=== PATIENT | male | born 1975 | race Two or more races ===

== ENCOUNTER 2019-12-15 17:10 | Outpatient (REF) | payer MEDICAID, SELFPAY | END 2019-12-15 17:11 | disposition home or self-care (01) | LOC: HO.LAB 17:10 | PROVIDERS: PCP Internal Medicine; Visit Provider Internal Medicine | DX: Z20.828 Contact with and (suspected) exposure to other viral communicable diseases (principal) | CPT/HCPCS: C9803; U0003 ==

== ENCOUNTER 2020-04-19 08:54 | Outpatient (REF) | payer MEDICAID, SELFPAY ==
--- NOTE | ~2020-04-19 | XR_ITS ---
EXAMINATION: XR SHOULDER, RIGHT CLINICAL INFORMATION: Pain COMPARISON: None TECHNIQUE: AP external rotation, Grashey, scapular Y, and axillary views of the right shoulder. FINDINGS: Bone alignment is normal. No fracture or dislocation is seen. The glenohumeral joint is normal. There is arthritis at the acromioclavicular joint. Soft tissues are unremarkable. XR/XR shoulder RT min 2V IMPRESSION: Arthritis at the acromioclavicular joint.
== END 2020-04-19 08:55 | disposition home or self-care (01) ==
LOC: HO.XRAY 08:54
PROVIDERS: PCP Internal Medicine; Visit Provider Internal Medicine
DX: M25.511 Pain in right shoulder (principal)
CPT/HCPCS: 73030

== ENCOUNTER 2022-03-14 10:17 | Day surgery (SDC) | payer MEDICAID, SELFPAY ==
--- NOTE | 2022-02-27 12:40 | HO.ANESPROP2 ---
Documented by User: Rivka Tellez NP 02/27/22 12:40 HPI - Anesthesia Eval Consult details Narrative: 46yo M for Colonoscopy [facility] Past Medical History Medical History (Updated 02/27/22 @ 12:05 by Sylvia Dai RN) Anxiety and depression Back pain Elevated WBCs HTN (hypertension) KIM (obstructive sleep apnea) Type 2 diabetes mellitus Surgical History Surgical History (Updated 03/14/22 @ 10:49 by Sadaf Schaffer RN) Hx of oral surgery Social History Social History Patient Tobacco Use Status: Current everyday Tobacco user Tobacco use type: Cigarette Cigarettes Per Day: 10 Use of substances other than those prescribed or required for medical reasons: Yes Are you DNR?: No Advance Directives: No Advance Directives Information Provided: Yes Meds Allergies Allergy/AdvReac Type Severity Reaction Status Date / Time No Known Allergies Allergy Verified 03/14/22 10:46 Home Medications Medication Instructions Recorded Confirmed Last Taken Type albuterol sulfate 90 mcg/actuation 2 puff inhalation Q4-6H PRN 02/27/22 02/27/22 Unknown History aerosol inhaler (ProAir HFA) Wheezing cholecalciferol (vitamin D3) 50 1 cap PO DAILY 02/27/22 02/27/22 Unknown History mcg (2,000 unit) capsule (Vitamin D3) clonazepam 1 mg tablet 1 tab PO BID 02/27/22 02/27/22 Unknown History cyanocobalamin (vitamin B-12) 1 tab PO DAILY 02/27/22 02/27/22 Unknown History 1,000 mcg tablet dulaglutide 4.5 mg/0.5 mL 0.5 ml subcut QWEEK 02/27/22 02/27/22 Unknown History subcutaneous pen injector (Trulicity) empagliflozin 25 mg tablet 1 tab PO QAM 02/27/22 02/27/22 Unknown History (Jardiance) gabapentin 300 mg capsule 1 cap PO BID 02/27/22 02/27/22 Unknown History lisinopril 20 mg tablet 1 tab PO DAILY 02/27/22 02/27/22 03/14/22 History lurasidone 20 mg tablet (Latuda) 1 tab PO QPM 02/27/22 02/27/22 Unknown History mirtazapine 45 mg tablet 1 tab BEDTIME 02/27/22 02/27/22 Unknown History perphenazine 4 mg tablet 4 mg PO BID 02/27/22 02/27/22 Unknown History ropinirole 1 mg tablet 1 tab PO BEDTIME 02/27/22 02/27/22 Unknown History sertraline 100 mg tablet 2 tab PO DAILY 02/27/22 02/27/22 Unknown History tramadol 50 mg tablet 1 - 2 tab PO Q8H PRN Pain 02/27/22 02/27/22 Unknown History zolpidem 10 mg tablet 1 tab PO BEDTIME PRN Insomnia 02/27/22 02/27/22 Unknown History Exam Exam Date and Time: February 27, 2022 124 Assessment and Plan Assessment Anesthesia Assessment: Chart Reviewed Documented by User: Kit Walker MD 03/14/22 15:18 [facility] Past Medical History Medical History (Updated 02/27/22 @ 12:05 by Sylvia Dai RN) Anxiety and depression Back pain Elevated WBCs HTN (hypertension) KIM (obstructive sleep apnea) Type 2 diabetes mellitus Functional capacity: independent ambulation Family History Family history of problems with anesthesia: No Surgical History Surgical History (Updated 03/14/22 @ 10:49 by Sadaf Schaffer RN) Hx of oral surgery History of Problems with Anesthesia: No Social History Social History Patient Tobacco Use Status: Current everyday Tobacco user Tobacco use type: Cigarette Cigarettes Per Day: 10 Use of substances other than those prescribed or required for medical reasons: Yes Are you DNR?: No Advance Directives: No Advance Directives Information Provided: Yes Meds Allergies Allergy/AdvReac Type Severity Reaction Status Date / Time No Known Allergies Allergy Verified 03/14/22 10:46 Home Medications Medication Instructions Recorded Confirmed Last Taken Type albuterol sulfate 90 mcg/actuation 2 puff inhalation Q4-6H PRN 02/27/22 02/27/22 Unknown History aerosol inhaler (ProAir HFA) Wheezing cholecalciferol (vitamin D3) 50 1 cap PO DAILY 02/27/22 02/27/22 Unknown History mcg (2,000 unit) capsule (Vitamin D3) clonazepam 1 mg tablet 1 tab PO BID 02/27/22 02/27/22 Unknown History cyanocobalamin (vitamin B-12) 1 tab PO DAILY 02/27/22 02/27/22 Unknown History 1,000 mcg tablet dulaglutide 4.5 mg/0.5 mL 0.5 ml subcut QWEEK 02/27/22 02/27/22 Unknown History subcutaneous pen injector (Trulicity) empagliflozin 25 mg tablet 1 tab PO QAM 02/27/22 02/27/22 Unknown History (Jardiance) gabapentin 300 mg capsule 1 cap PO BID 02/27/22 02/27/22 Unknown History lisinopril 20 mg tablet 1 tab PO DAILY 02/27/22 02/27/22 03/14/22 History lurasidone 20 mg tablet (Latuda) 1 tab PO QPM 02/27/22 02/27/22 Unknown History mirtazapine 45 mg tablet 1 tab BEDTIME 02/27/22 02/27/22 Unknown History perphenazine 4 mg tablet 4 mg PO BID 02/27/22 02/27/22 Unknown History ropinirole 1 mg tablet 1 tab PO BEDTIME 02/27/22 02/27/22 Unknown History sertraline 100 mg tablet 2 tab PO DAILY 02/27/22 02/27/22 Unknown History tramadol 50 mg tablet 1 - 2 tab PO Q8H PRN Pain 02/27/22 02/27/22 Unknown History zolpidem 10 mg tablet 1 tab PO BEDTIME PRN Insomnia 02/27/22 02/27/22 Unknown History Exam Airway Mallampati Class: IV TM Dist: >3cm Neck ROM: Full Loose/Missing/Broken Teeth: Yes Heart: S1,S2 Lungs: b/l breath sounds Assessment and Plan Assessment Anesthesia Assessment: Anesthesia Plan Discussed Final Anesthetic Review Family History of Problems with Anesthesia: No History of Problems with Anesthesia: No NPO: Yes ASA Class: III Final Preanesthetic Review: Meds/Allgs Chart Reviewed, Consent Obtained/Reviewed and Anes Risks/Benef Reviewed Patient Risk: Intermediate Procedure Risk: Intermediate Anesthetic Plan Anesthetic Plan: MAC: Disposition: Standard PACU
[2022-03-14 10:50] VITALS: BMI 55.0
[2022-03-14 10:56] VITALS: BP 109/69; PULSE 97; RESP 18; TEMP 36.7; O2SAT 96
[2022-03-14] MEDS: Lactated Ringers 1,000 ML 100 ML IVCONT (11:23)
[2022-03-14 11:24] LABS: Glucose, Whole Blood 152 mg/dL (60-115)
--- NOTE | 2022-03-14 11:57 | MHC.SHP ---
Pre-Procedural Eval Section A Date of Service: 03/14/22 Section B Chief Complaint: screening Details of Present Illness: see H&P no changes Relevant Family History (Specify if Yes): No Relevant Social History: None Present Medications: see Short Stay Collaborative assessment Medical History: No relevant PMH History of Previous Operations: No relevant previous surgery Allergies: Allergies Allergy/AdvReac Type Severity Reaction Status Date / Time No Known Allergies Allergy Verified 03/14/22 10:46 Review of Systems Sugical H&P ROS: Negative: Constitution, Cardiovascular, Respiratory, Neurological, Psychiatric, Hem-Onc, Allergic/Immunologic, Gastrointestinal, Genitourinary, Musculoskeletal, Integumentary, Endocrine and Eyes/Ears/Nose/Throat Exam Surgical H&P Exam: Normal: HEENT, Normal: Heart, Normal: Lungs, Normal: Extremities, Normal: Abdomen, Normal: Skin and Normal: Neurological Plan Diagnosis/Plan: Unchanged I have reviewed the history and physical and performed a pertinent physical examination on my patient. No changes have occurred unless specified. Time Spent With Patient Time: Total time managing care of this patient today ____ minutes.
--- NOTE | 2022-03-14 12:34 | PM.OP ---
Brief Operative Note Date of Service: 03/14/22 Pre-op diagnosis: screening Post-op diagnosis: same Procedure: colonoscopy Surgeon: Grady Gomes Anesthesia: MAC Was an Lactation Consultant used for this Procedure?: No Estimated blood loss (mL): 2 Pathology: other Condition: stable Disposition: PACU
[2022-03-14 12:38] VITALS: BP 107/55; PULSE 92; RESP 18; TEMP 37.7; O2SAT 98
[2022-03-14 13:00] VITALS: BP 109/55; PULSE 81; RESP 18; TEMP 37.1; O2SAT 97
--- NOTE | 2022-03-14 13:03 | OP_ITS ---
SURGEON: Grady Gomes MD INDICATIONS: Colon cancer screening. PREOPERATIVE DIAGNOSIS: POSTOPERATIVE DIAGNOSIS: PROCEDURE PERFORMED: Colonoscopy to the terminal ileum with biopsy. ESTIMATED BLOOD LOSS: COMPLICATIONS: ANESTHESIA: Monitored anesthesia care. ASSISTANTS: SPECIMENS: DESCRIPTION OF PROCEDURE: A history and physical was performed. The risks and benefits of the procedure were explained to the patient. Informed consent was obtained. The procedure was performed on 24/08/2022. The patient was placed in the left lateral decubitus position. A digital rectal exam was performed and was found to be normal. The Olympus pediatric video colonoscope was introduced into the rectum and advanced to the cecum without difficulty. The cecum was identified by transillumination, palpation, and identification of ileocecal valve. Examination was performed. The scope was removed. He tolerated the procedure well and was returned to the recovery area in stable condition. FINDINGS: The terminal ileum was examined and appeared normal. The visualized colonic mucosa was normal. In the cecum was a less than 5 mm sessile polyp, which was removed with a biopsy forceps. No other polyps were identified. There appeared to be some areas of mucosal prolapse in the sigmoid. There was mild diverticulosis. Retroflexed examination was normal. IMPRESSION: Colon polyp. RECOMMENDATION: Follow up the biopsy results. MD CHRISTINA Fitch/GARRISONL / [id number]
== END 2022-03-14 13:57 | disposition home or self-care (01) ==
PROVIDERS: PCP Registered Nurse; Visit Provider Internal Medicine Gastroenterology
PROC: 0DJD8ZZ Inspection of Lower Intestinal Tract, Via Natural or Artificial Opening Endoscopic (ICD-10-PCS; CPT 45378; principal; 2022-03-14 11:40)
DX: Z12.11 Encounter for screening for malignant neoplasm of colon (principal); D12.0 Benign neoplasm of cecum; K57.30 Diverticulosis of large intestine without perforation or abscess without bleeding; K59.00 Constipation, unspecified; D72.829 Elevated white blood cell count, unspecified; I10 Essential (primary) hypertension; G47.33 Obstructive sleep apnea (adult) (pediatric); E11.9 Type 2 diabetes mellitus without complications; F41.8 Other specified anxiety disorders; Z79.85 Long-term (current) use of injectable non-insulin antidiabetic drugs; F17.210 Nicotine dependence, cigarettes, uncomplicated; Z79.899 Other long term (current) drug therapy
CPT/HCPCS: 45380; 82947; 88305; J2250; J2370

== ENCOUNTER 2022-03-20 09:11 | Outpatient (REF) | payer MEDICAID, SELFPAY ==
--- NOTE | ~2022-03-20 | XR_ITS ---
EXAMINATION: KNEE X-RAY CLINICAL INFORMATION: Pain COMPARISON: Previous x-rays from 2018 TECHNIQUE: 3 views of each knee FINDINGS: Left: Bone alignment is normal. No fracture or dislocation. There are degenerative changes at the patellofemoral and medial femoral tibial joints with small osteophytes. There is no joint effusion. Right: There is valgus angulation of the knee joint. No acute fracture or dislocation. There is proliferative bone reaction adjacent to the medial femoral condyle likely related to old trauma. Arthritis at the lateral femoral tibial and patellofemoral joints. Small joint effusion. XR/XR knee RT 3V IMPRESSION: Bilateral arthritis, right greater than left.
--- NOTE | ~2022-03-20 | XR_ITS ---
EXAMINATION: KNEE X-RAY CLINICAL INFORMATION: Pain COMPARISON: Previous x-rays from 2018 TECHNIQUE: 3 views of each knee FINDINGS: Left: Bone alignment is normal. No fracture or dislocation. There are degenerative changes at the patellofemoral and medial femoral tibial joints with small osteophytes. There is no joint effusion. Right: There is valgus angulation of the knee joint. No acute fracture or dislocation. There is proliferative bone reaction adjacent to the medial femoral condyle likely related to old trauma. Arthritis at the lateral femoral tibial and patellofemoral joints. Small joint effusion. XR/XR knee LT 3V IMPRESSION: Bilateral arthritis, right greater than left.
== END 2022-03-20 09:12 | disposition home or self-care (01) ==
LOC: HO.XRAY 09:11
PROVIDERS: PCP Registered Nurse; Visit Provider Registered Nurse
DX: M25.561 Pain in right knee (principal); M25.562 Pain in left knee
CPT/HCPCS: 73562

== ENCOUNTER 2023-03-14 08:52 | Outpatient (REF) | payer MEDICAID, SELFPAY ==
[2023-03-14 12:44] LABS: Alanine Aminotransferase 19 U/L (0-40); Albumin Level 4.2 g/dL (3.5-5.0); Alkaline Phosphatase 106 U/L (39-117); Anion Gap 14 (12-20); Aspartate Amino Transferase 16 U/L (5-37); Bilirubin Total 0.4 mg/dL (0.0-1.0); Blood Urea Nitrogen 17 mg/dL (9-16); Calcium 9.5 mg/dL (8.4-10.2); Carbon Dioxide 25 mmol/L (22-29); Chloride 103 mmol/L (96-108); Cholesterol 133 mg/dL (<200); Estimated Glomerular Filt Rate > 60; Glucose Random 136 mg/dL (60-115); HDL Cholesterol 39 mg/dL (>40); LDL Cholesterol Calculated 58 mg/dL (<100); Potassium 4.5 mmol/L (3.3-5.1); Sodium 137 mmol/L (135-145); Total Protein 7.6 g/dL (6.5-8.0); Triglycerides 183 mg/dL (<150)
== END 2023-03-14 08:53 | disposition home or self-care (01) ==
LOC: HO.HHCL 08:52
PROVIDERS: Visit Provider Nurse Practitioner Family
DX: E11.9 Type 2 diabetes mellitus without complications (principal); I10 Essential (primary) hypertension; E66.01 Morbid (severe) obesity due to excess calories; Z68.43 Body mass index [BMI] 50.0-59.9, adult
CPT/HCPCS: 36415; 80053; 80061

== ENCOUNTER 2023-09-14 10:19 | Inpatient (IN) | payer MEDICAID, SELFPAY ==
[2023-09-14] VITALS (34 sets, daily range): BP systolic 83–136; BP diastolic 27–64; PULSE 91–121; RESP 16–33; TEMP 32–36.8; O2SAT 90–99; BMI 52.1; BMI 50.9
--- NOTE | 2023-09-14 | ECG_ITS ---
Test Reason : CP Blood Pressure : / mmHG Vent. Rate : 102 BPM Atrial Rate : 102 BPM P-R Int : 118 ms QRS Dur : 094 ms QT Int : 392 ms P-R-T Axes : 056 009 033 degrees QTc Int : 510 ms Sinus tachycardia Otherwise normal ECG When compared with ECG of 27-AUG-2018 09:18, QT has lengthened Referred By: Felicitas De León Electronically Signed By:RADHA BEAVER MD
--- NOTE | ~2023-09-14 | XR_ITS ---
EXAMINATION: XR CHEST CLINICAL INFORMATION: DKA high fluid overload COMPARISON: Chest x-ray performed same day 4:19 PM TECHNIQUE: Frontal view of the chest was obtained. FINDINGS: Endotracheal tube in place with the tip 3.6 cm above blanca. Central venous catheter remains in place in the region of the SVC. Low lung volumes. Lungs clear. Cardiomediastinal silhouette normal. Bone and soft tissues unremarkable. XR/XR chest 1V IMPRESSION: 1. Endotracheal tube 3.6 cm above blanca. 2. Low lung volumes.
--- NOTE | ~2023-09-14 | XR_ITS ---
EXAMINATION: XR CHEST CLINICAL INFORMATION: Gastric tube placement. COMPARISON: 09/14/2023. TECHNIQUE: Frontal view of the chest was obtained. FINDINGS: The lung volumes are relatively low. The cardiomediastinal silhouette is stable. There is an endotracheal tube in good position. A left approach central line is also in a stable position. A gastric tube extends below the diaphragm. The tip of the gastric tube is is not well seen but appears to be in overall adequate position. There is no focal lung consolidation or pleural effusion. There is no pneumothorax. The bony structures and soft tissues are unremarkable. XR/XR chest 1V IMPRESSION: Gastric tube extends below the diaphragm. The tip of the gastric tube is not well seen but appears to be in overall adequate position. No other significant change.
--- NOTE | ~2023-09-14 | XR_ITS ---
EXAMINATION: XR CHEST CLINICAL INFORMATION: Catheter placement. COMPARISON: Chest radiograph 01/25/2018. TECHNIQUE: Frontal view of the chest was obtained. FINDINGS: Left-sided CVC catheter with the tip overlying the expected location of the lower SVC. No evidence of pneumothorax. Unchanged cardiomediastinal silhouette. Similar degree of mild diffuse interstitial prominence. No focal consolidation or pleural effusion. No acute osseous findings. XR/XR chest 1V IMPRESSION: 1. Left-sided CVC catheter with the tip overlying the expected location of the lower SVC. 2. No pneumothorax. 3. No focal consolidation.
--- NOTE | ~2023-09-14 | XR_ITS ---
EXAMINATION: XR CHEST CLINICAL INFORMATION: Assess ET tube position. COMPARISON: 09/15/2023 TECHNIQUE: Frontal view of the chest was obtained. FINDINGS: ET tube tip is 3.4 cm above the blanca. Left subclavian central venous catheter tip is at the sidewall of the superior vena cava. No pneumothorax seen. NG tube is in the stomach. Heart and mediastinum within normal limits. No vascular congestion. Obscuration left hemidiaphragm with increased markings and left costophrenic angle blunting. Bony structures are intact. XR/XR chest 1V IMPRESSION: Lines as described. Interval density left base, question atelectasis/pneumonia and small effusion.
--- NOTE | ~2023-09-14 | CT_ITS ---
EXAMINATION: CT PELVIS WITH CONTRAST CLINICAL INFORMATION: Abscess to groin and gluteal region, large, draining. COMPARISON: None available. TECHNIQUE: Helical scanning was performed with submillimeter collimation through the pelvis with the use of oral contrast and during bolus intravenous injection of 85 mL of Omnipaque 350 intravenous contrast. Sagittal and coronal multiplanar 2-D reconstructions were obtained. This CT examination was performed using dose optimization techniques as appropriate, variously including the following: *Automated exposure control *Adjustment of mA and/or kV according to patient size (this includes techniques or standardized protocols for targeted exams where dose is matched to indication/reason for exam; i.e. extremities or head) *Use of iterative reconstruction technique DLP: 658 mGy-cm FINDINGS: Quite extensive foci of gas scattered in the soft tissues of the right gluteal region extending deeper to abut the muscular compartment with associated fat stranding. A few additional foci of gas are noted more medially in the inner thigh and right perineum. No discrete organized collection or abscess. Asymmetric right-sided inguinal and external iliac lymphadenopathy. Colonic diverticulosis without significant pericolonic inflammatory changes to suspect acute diverticulitis. Normal size of the prostate gland and symmetric seminal vesicles. Conti catheter noted within a decompressed urinary bladder, intraluminal air is indeterminate in the presence of the Conti. No perivesical inflammatory changes. No acute or aggressive appearing osseous findings. CT/CT pelvis w IV con IMPRESSION: Extensive gas in the soft tissues of the right gluteal region and to a lesser extent medial right inner thigh and right perineum with surrounding fat stranding, concerning for a gangrenous/emphysematous infection. No organized abscess or drainable collection.
--- NOTE | 2023-09-14 10:29 | ED.ABDPAIN ---
HPI - Abdominal Pain General Chief Complaint: General Medical Stated Complaint: BLEEDING GROIN AREA Time Seen by Provider: 09/14/23 10:22 Source: patient Mode of arrival: ambulatory Limitations: other (poor historian) History of Present Illness ED Provider: Brendon BROWER HPI narrative: 48 year old M with a pmh of T2DM, HTN, KIM, anxiety and depression presenting with complaints of 2 groin cysts that are infected/bleeding for the past week. Reports that the cysts are bleeding and draining black stuff. He states the areas are very painful, 01/14. He has never been seen for these previously due to embarrassment. He states he has not been able to keep any fluids/solids down for 5 days as he has continuously vomited. He reports fevers, but denies chest pain, sob. Related Data Home Medications ?Medication ?Instructions ?Recorded ?Confirmed albuterol sulfate 90 mcg/actuation 2 puff inhalation Q4-6H PRN 02/27/22 09/14/23 aerosol inhaler (ProAir HFA) Wheezing cholecalciferol (vitamin D3) 50 1 cap PO DAILY 02/27/22 09/14/23 mcg (2,000 unit) capsule (Vitamin D3) clonazepam 1 mg tablet 1 tab PO BID 02/27/22 09/14/23 cyanocobalamin (vitamin B-12) 1 tab PO DAILY 02/27/22 09/14/23 1,000 mcg tablet dulaglutide 4.5 mg/0.5 mL 0.5 ml subcut QWEEK 02/27/22 09/14/23 subcutaneous pen injector (Trulicity) empagliflozin 25 mg tablet 1 tab PO QAM 02/27/22 09/14/23 (Jardiance) gabapentin 300 mg capsule 1 cap PO BID 02/27/22 09/14/23 lisinopril 20 mg tablet 1 tab PO DAILY 02/27/22 09/14/23 lurasidone 20 mg tablet (Latuda) 1 tab PO QPM 02/27/22 02/27/22 mirtazapine 45 mg tablet 1 tab BEDTIME 02/27/22 09/14/23 perphenazine 4 mg tablet 4 mg PO BID 02/27/22 02/27/22 ropinirole 1 mg tablet 1 tab PO BEDTIME 02/27/22 09/14/23 sertraline 100 mg tablet 2 tab PO DAILY 02/27/22 09/14/23 tramadol 50 mg tablet 1 - 2 tab PO Q8H PRN Pain 02/27/22 09/14/23 zolpidem 10 mg tablet 1 tab PO BEDTIME PRN Insomnia 02/27/22 02/27/22 ziprasidone HCl 40 mg capsule 40 mg PO QPM 09/14/23 09/14/23 Allergies Allergy/AdvReac Type Severity Reaction Status Date / Time No Known Allergies Allergy Verified 09/14/23 11:03 Review of Systems Review of Systems Yes all other systems are reviewed and are negative FOR[facility]LY [facility] Past Medical History Attestation statement: The following information was validated with the patient. Source: old records reviewed and nursing notes reviewed Medical History (Updated 09/14/23 @ 13:04 by Michael Matthew MD) Soft tissue infection Morbid obesity Back pain KIM (obstructive sleep apnea) Anxiety and depression Elevated WBCs Type 2 diabetes mellitus HTN (hypertension) Surgical History (Updated 03/14/22 @ 10:49 by Sadaf Schaffer RN) Hx of oral surgery Social History Social History Alcohol intake: never Patient Tobacco Use Status: Current everyday Tobacco user Tobacco use type: Cigarette Cigarettes Per Day: 10 Smoked in Last 30 Days: Yes Use of substances other than those prescribed or required for medical reasons: Yes Substance Use Type: Marijuana Substance Use Frequency: Chronic Longstanding Advance Directives: No Advance Directives Information Provided: Yes Physical Exam ED Vital Signs: Vital Signs - 24 hr 09/14/23 11:01 09/14/23 11:22 09/14/23 11:35 Temperature 97.8 F 97.8 F Pulse Rate 105 H 102 H 98 Respiratory Rate 20 18 20 Blood Pressure 102/49 L 86/27 L 109/38 L Pulse Oximetry 97 96 98 Oxygen Delivery Method Room Air Room Air Room Air Oxygen Flow Rate 09/14/23 12:13 Temperature 97.3 F Pulse Rate 94 Respiratory Rate 20 Blood Pressure 102/37 L Pulse Oximetry 95 Oxygen Delivery Method Nasal Cannula Oxygen Flow Rate 2.0 BMI result Body Mass Index 52.1 vss Appearance: Alert.? Oriented X3.? No acute distress.? Head: Normocephalic, atraumatic, no step-offs or deformities Eyes: Pupils equal, round and reactive to light.? ENT: Pharynx normal.??External ears normal, TMs normal bilaterally and EAC's normal. No pain with manipulation of external ears bilaterally. No mastoid tenderness. Neck: Normal inspection.? Neck supple.? CVS: Normal heart rate and rhythm.? Pulses normal.? Respiratory: No respiratory distress.? Breath sounds normal.? Abdomen: Soft and nontender.? Skin: Skin warm and dry.? Normal skin color.? Normal skin turgor.? + large abscess to r inner thigh, w/ erythema, warmth, large purulence, also abscess to the posterior thigh around the same level ( images in chart ) Extremities: No lower extremity edema.? No calf ttp. 5/5 strength to bilateral upper and lower extremities Back: No midline tenderness, no C-spine tenderness, full range of motion, no CVA tenderness bilaterally Neuro: Oriented X 3.? No motor deficit.? No sensory deficit. CN 2-12 intact Course Reevaluation(s) Reevaluation #1: Difficult stick. Patient's labs are pending however he did have a point of care done which revealed an elevated blood glucose 590, 10 units of subq insulin ordered, patient will also receive IV fluids. He is noted to be hypotensive, tachycardic, this time infection suspected Zosyn has been ordered for prophylactic coverage of wound as well as fluids. Time: 11:14 Reevaluation #2: Patient with strikingly high leukocytosis 37.8 with a shift. Chemistry with low potassium 2.5 IV potassium ordered. Noted to have a low carbon dioxide 9, anion gap of 23 likely secondary to infection. ITA, fluids ordered. Point of care glucose 590, 10 units of insulin ordered. As well as a very elevated beta hydroxybutyrate patient is likely also in DKA. Patient's inflammatory markers extremely elevated. I did reach out to surgery to inform them of this case as I have suspicion for fourniers/necrotizing infection, he is currently in the OR recommend NPO. Time: 11:42 Reevaluation #3: Dr. Matthew down to see patient however patient in the CT scanner, he will return after for revaluation. Time: 12:16 Additional Reevaluation(s): 1223 - Patient returned from CT scan a few minutes ago, nursing received a call stating that patient would be going to the OR. I did go over what was going on with the patient. I answered most questions. He verbalized understanding of severity of this. I was going to place a central line however nursing states that the OR will be here any minute. He does have to IVs with good access bilaterally, all meds running adequately. 1310- change of plans, patient to go to the ICU before OR as patient needs to be further stabilized per request of anesthesia 1339- Patient will go to the ICU at this time Medical Decision Making Medical Decision Making [facility] Narrative: 1045 48 year old M presenting with c/o groin pain x 1 week d/t 2 cysts that are infected and bleeding Physical examination revealed Hx and pe concerning for HS w/ draining abscess vs cellulitis w/ poor wound healing likley due to DM uncontrolled w/ fistula. Based off with my examination Cuate gangrene and necrotizing infection can not be ruled out surgery will be consulted. . Unlikely hernia, testicular torsion . Pending labs, CT Differential Diagnosis Differential Diagnoses: The differential diagnosis associated with the presentation includes Hx and pe concerning for HS w/ draining abscess vs cellulitis w/ poor wound healing likley due to DM uncontrolled w/ fistula. Based off with my examination Cuate gangrene and necrotizing infection can not be ruled out surgery will be consulted. . Unlikely hernia, testicular torsion . Admission/Observation Consideration of admission/observation: Escalation of care including admission/observation considered unlikely Consult Healthcare Provider Management of the patient was discussed with: Hot Walker (Surgery Dr. Matthew ) Lab Data [facility] Lab Attestation statement: I reviewed the patient's lab results. 09/14/23 10:41 09/14/23 10:56 Labs: Lab Results 09/14/23 09/14/23 09/14/23 Range/Units 10:40 10:41 10:56 WBC 37.8 H* (4.8-10.8) X10*3/uL RBC 4.59 L (4.60-5.80) X10*6/uL Hgb 13.3 L (14.0-18.0) g/dl Hct 38.5 L (42.0-52.0) % MCV 83.9 (80.0-98.0) fL MCH 29.0 (27.0-33.0) pg MCHC 34.5 (31.0-36.0) g/dl RDW 16.9 H (11.0-16.0) % Plt Count 446 H (160-400) X10*3/uL MPV 9.5 (9.4-12.4) fL Immature Gran % (Auto) Cancelled Neut % (Auto) Cancelled Lymph % (Auto) Cancelled Christian % (Auto) Cancelled Eos % (Auto) Cancelled Baso % (Auto) Cancelled Lymph # (Auto) Cancelled Christian # (Auto) Cancelled Eos # (Auto) Cancelled Baso # (Auto) Cancelled Abs Immat Gran (auto) Cancelled Absolute Neuts (auto) Cancelled Absolute Nucleated RBC 0.110 H (0.0-0.012) X10*3/uL Nucleated RBC % (auto) 0.3 H (0.0-0.2) /100WBC Neutrophils % (Manual) 76 H (45-73) % Band Neutrophils % 11 H (3-5) % Lymphocytes % (Manual) 2 L (20-40) % Monocytes % (Manual) 3 (2-11) % Metamyelocytes % 4 % Myelocytes % 2 % Promyelocytes % 2 % Abs Neuts (Manual) 32.9 H (2.0-8.3) X10*3/uL Lymphocytes # (Manual) 0.8 L (1.2-4.9) X10*3/uL Monocytes # (Manual) 1.1 (0.1-1.2) X10*3/uL Metamyelocytes # 1.5 X10*3/uL Myelocytes # 0.8 X10*/uL Promyelocytes # 0.8 X10*3/uL Nucleated RBCs 1 H (0-0) /100WBC Platelet Estimate NORMAL (NORMAL) Plt Morphology Comment NORMAL RBC Morphology NOTED [place] Cells 3+ (>5) /OIF ESR 54 H (0-15) MM/HR VBG pH (7.32-7.43) VBG pCO2 mmHg VBG pO2 mmHg VBG HCO3 (22-26) mmol/L VBG O2 Saturation % VBG Base Excess mmol/L Sodium 133 L (135-145) mmol/L Potassium 2.5 L* D (3.3-5.1) mmol/L Chloride 104 (96-108) mmol/L Carbon Dioxide 9 L* D (22-29) mmol/L Anion Gap 23 H (12-20) BUN 38 H (9-16) mg/dL Creatinine 1.80 H (0.5-1.4) mg/dL Estim Creat Clear Calc 69.5 Estimated GFR 41 POC Glucose (60-115) mg/dL Random Glucose 641 H* (60-115) mg/dL Lactic Acid 2.6 H* (0.5-2.0) mmol/L Calcium 10.2 D (8.4-10.2) mg/dL Magnesium 2.5 (1.6-2.6) mg/dL Total Bilirubin 0.2 (0.0-1.0) mg/dL AST 10 (5-37) U/L ALT 15 (0-40) U/L Alkaline Phosphatase 139 H (39-117) U/L C-Reactive Protein 29.26 H (< or = 0.50) mg/dL Total Protein 6.2 L (6.5-8.0) g/dL Albumin 2.4 L (3.5-5.0) g/dL Beta-Hydroxybutyrate 7.59 H (0.02-0.27) mmol/L Urine Color Urine Appearance Urine pH (5.0-9.0) Ur Specific [place] (1.005-1.025) Urine Protein (Neg-Trace) mg/dL Urine Glucose (UA) (Negative) mg/dL Urine Ketones (Negative) mg/dL Urine Blood (Negative) Urine Nitrite (Negative) Ur Leukocyte Esterase (Negative) Urine RBC (0-2) /HPF Urine WBC (0-5) /HPF Ur Squamous Epith Cells (0-2) /HPF Urine Bacteria (None Seen) Hyaline Casts (0-2) /LPF 09/14/23 09/14/23 09/14/23 Range/Units 11:03 11:06 11:49 WBC (4.8-10.8) X10*3/uL RBC (4.60-5.80) X10*6/uL Hgb (14.0-18.0) g/dl Hct (42.0-52.0) % MCV (80.0-98.0) fL MCH (27.0-33.0) pg MCHC (31.0-36.0) g/dl RDW (11.0-16.0) % Plt Count (160-400) X10*3/uL MPV (9.4-12.4) fL Immature Gran % (Auto) Neut % (Auto) Lymph % (Auto) Christian % (Auto) Eos % (Auto) Baso % (Auto) Lymph # (Auto) Christian # (Auto) Eos # (Auto) Baso # (Auto) Abs Immat Gran (auto) Absolute Neuts (auto) Absolute Nucleated RBC (0.0-0.012) X10*3/uL Nucleated RBC % (auto) (0.0-0.2) /100WBC Neutrophils % (Manual) (45-73) % Band Neutrophils % (3-5) % Lymphocytes % (Manual) (20-40) % Monocytes % (Manual) (2-11) % Metamyelocytes % % Myelocytes % % Promyelocytes % % Abs Neuts (Manual) (2.0-8.3) X10*3/uL Lymphocytes # (Manual) (1.2-4.9) X10*3/uL Monocytes # (Manual) (0.1-1.2) X10*3/uL Metamyelocytes # X10*3/uL Myelocytes # X10*/uL Promyelocytes # X10*3/uL Nucleated RBCs (0-0) /100WBC Platelet Estimate (NORMAL) Plt Morphology Comment RBC Morphology [place] Cells /OIF ESR (0-15) MM/HR VBG pH 7.17 L* (7.32-7.43) VBG pCO2 18 mmHg VBG pO2 147 mmHg VBG HCO3 7 L (22-26) mmol/L VBG O2 Saturation 98.0 % VBG Base Excess -19.0 mmol/L Sodium (135-145) mmol/L Potassium (3.3-5.1) mmol/L Chloride (96-108) mmol/L Carbon Dioxide (22-29) mmol/L Anion Gap (12-20) BUN (9-16) mg/dL Creatinine (0.5-1.4) mg/dL Estim Creat Clear Calc Estimated GFR POC Glucose 590 H* (60-115) mg/dL Random Glucose (60-115) mg/dL Lactic Acid (0.5-2.0) mmol/L Calcium (8.4-10.2) mg/dL Magnesium (1.6-2.6) mg/dL Total Bilirubin (0.0-1.0) mg/dL AST (5-37) U/L ALT (0-40) U/L Alkaline Phosphatase (39-117) U/L C-Reactive Protein (< or = 0.50) mg/dL Total Protein (6.5-8.0) g/dL Albumin (3.5-5.0) g/dL Beta-Hydroxybutyrate (0.02-0.27) mmol/L Urine Color Yellow Urine Appearance Cloudy Urine pH 6.0 (5.0-9.0) Ur Specific [place] 1.025 (1.005-1.025) Urine Protein 30 (1+) H (Neg-Trace) mg/dL Urine Glucose (UA) >=1000 H (Negative) mg/dL Urine Ketones 40 (Negative) mg/dL Urine Blood Trace H (Negative) Urine Nitrite Negative (Negative) Ur Leukocyte Esterase Negative (Negative) Urine RBC 0-2 (0-2) /HPF Urine WBC 0-5 (0-5) /HPF Ur Squamous Epith Cells 3-5 (0-2) /HPF Urine Bacteria None Seen (None Seen) Hyaline Casts 6-10 (0-2) /LPF /10/29 Range/Units 12:39 WBC (4.8-10.8) X10*3/uL RBC (4.60-5.80) X10*6/uL Hgb (14.0-18.0) g/dl Hct (42.0-52.0) % MCV (80.0-98.0) fL MCH (27.0-33.0) pg MCHC (31.0-36.0) g/dl RDW (11.0-16.0) % Plt Count (160-400) X10*3/uL MPV (9.4-12.4) fL Immature Gran % (Auto) Neut % (Auto) Lymph % (Auto) Christian % (Auto) Eos % (Auto) Baso % (Auto) Lymph # (Auto) Christian # (Auto) Eos # (Auto) Baso # (Auto) Abs Immat Gran (auto) Absolute Neuts (auto) Absolute Nucleated RBC (0.0-0.012) X10*3/uL Nucleated RBC % (auto) (0.0-0.2) /100WBC Neutrophils % (Manual) (45-73) % Band Neutrophils % (3-5) % Lymphocytes % (Manual) (20-40) % Monocytes % (Manual) (2-11) % Metamyelocytes % % Myelocytes % % Promyelocytes % % Abs Neuts (Manual) (2.0-8.3) X10*3/uL Lymphocytes # (Manual) (1.2-4.9) X10*3/uL Monocytes # (Manual) (0.1-1.2) X10*3/uL Metamyelocytes # X10*3/uL Myelocytes # X10*/uL Promyelocytes # X10*3/uL Nucleated RBCs (0-0) /100WBC Platelet Estimate (NORMAL) Plt Morphology Comment RBC Morphology [place] Cells /OIF ESR (0-15) MM/HR VBG pH (7.32-7.43) VBG pCO2 mmHg VBG pO2 mmHg VBG HCO3 (22-26) mmol/L VBG O2 Saturation % VBG Base Excess mmol/L Sodium (135-145) mmol/L Potassium (3.3-5.1) mmol/L Chloride (96-108) mmol/L Carbon Dioxide (22-29) mmol/L Anion Gap (12-20) BUN (9-16) mg/dL Creatinine (0.5-1.4) mg/dL Estim Creat Clear Calc Estimated GFR POC Glucose 550 H* (60-115) mg/dL Random Glucose (60-115) mg/dL Lactic Acid (0.5-2.0) mmol/L Calcium (8.4-10.2) mg/dL Magnesium (1.6-2.6) mg/dL Total Bilirubin (0.0-1.0) mg/dL AST (5-37) U/L ALT (0-40) U/L Alkaline Phosphatase (39-117) U/L C-Reactive Protein (< or = 0.50) mg/dL Total Protein (6.5-8.0) g/dL Albumin (3.5-5.0) g/dL Beta-Hydroxybutyrate (0.02-0.27) mmol/L Urine Color Urine Appearance Urine pH (5.0-9.0) Ur Specific [place] (1.005-1.025) Urine Protein (Neg-Trace) mg/dL Urine Glucose (UA) (Negative) mg/dL Urine Ketones (Negative) mg/dL Urine Blood (Negative) Urine Nitrite (Negative) Ur Leukocyte Esterase (Negative) Urine RBC (0-2) /HPF Urine WBC (0-5) /HPF Ur Squamous Epith Cells (0-2) /HPF Urine Bacteria (None Seen) Hyaline Casts (0-2) /LPF Independent Interpretation I performed an independent interpretation of an: CT Scan (pending ) Radiology Impression Discussion of test interpretation with radiology: I have reviewed the radiologist's reading. Medications Administered Generic Name Dose Route Start Last Admin Trade Name Freq PRN Reason Stop Dose Admin Potassium Chloride 10 meq in 100 mls @ 100 mls/hr 09/14/23 12:15 09/14/23 12:31 Potassium Chloride/H20 IV 09/14/23 16:14 100 mls/hr Q1H VIKTORIYA Administration Discontinued Medications Generic Name Dose Route Start Last Admin Trade Name Freq PRN Reason Stop Dose Admin Piperacillin Sod/Tazobactam 50 mls @ 100 mls/hr 09/14/23 10:37 09/14/23 13:06 Sod 3.375 gm/ Sodium Chloride IV 09/14/23 11:06 Infused ONCE ONE Infusion Sodium Chloride 1,000 mls @ 999 mls/hr 09/14/23 11:15 09/14/23 11:20 Ns IV 09/14/23 12:15 Infused .Q1H1M VIKTORIYA Infusion Sodium Chloride 4,395.3 mls @ 4,395.3 mls/hr 09/14/23 11:12 09/14/23 11:17 Ns 30 ml/kg infuse over 1 hr (4395.3 ml) 09/14/23 12:11 4,395.3 mls/hr IV Administration .Q1H STA Vancomycin HCl 2,000 mg/ 500 mls @ 250 mls/hr 09/14/23 11:37 09/14/23 12:27 Sodium Chloride IV 09/14/23 13:36 250 mls/hr ONCE ONE Administration Clindamycin Phosphate 600 mg in 50 mls @ 100 mls/hr 09/14/23 11:38 09/14/23 13:06 Cleocin IV 09/14/23 12:07 Infused ONCE ONE Infusion Insulin Human Lispro 10 unit 09/14/23 11:06 09/14/23 11:15 Insulin Lispro 100 Unit/Ml 3 Ml Vial SUBCUT 09/14/23 11:07 10 unit ONCE ONE Administration Insulin Human Regular 5 unit 09/14/23 12:31 09/14/23 12:40 Insulin Regular, Human 100 Unit/Ml 10 Ml Vial IVPUSH 09/14/23 12:32 5 unit ONCE ONE Administration Iohexol 85 ml 09/14/23 12:17 09/14/23 12:17 Iohexol 350 Mg/Ml 75 Ml Infus..Btl IV 09/14/23 12:18 85 ml ONCE ONE Administration Critical Care Time Critical Care Time Critical Care Time: Yes Total Critical Care Time: 45 Attestation: I attest to this time spent taking care of the patient, obtaining history, physical, reviewing labs, imaging, speaking to my attending, specialist or hospitalist. Discharge Plan Discharge Clinical Impression: Sepsis, DKA (diabetic ketoacidosis), Bandemia, Cuate gangrene Patient Disposition: Admitted As Inpatient
[2023-09-14] MEDS: Piperacillin Sodium/Tazobactam 3.375 GM in 0.9 % Sodium Chloride 50 ML IV ×2 (11:08→19:54)
[2023-09-14] MEDS: 0.9 % Sodium Chloride 1,000 ML 999 ML IV (11:08)
[2023-09-14 11:10] LABS: Glucose, Whole Blood 590 mg/dL (60-115)
[2023-09-14] MEDS: Insulin Lispro 100 UNIT/ML 3 ML VIAL 10 UNIT SUBCUT (11:15)
[2023-09-14 11:20] LABS: VBG HCO3 7 mmol/L (22-26); VBG pCO2 18 mmHg; VBG pO2 147 mmHg
[2023-09-14 11:21] LABS: Hematocrit 38.5 % (42.0-52.0); Hemoglobin 13.3 g/dl (14.0-18.0); Mean Corpuscular HGB Conc 34.5 g/dl (31.0-36.0); Mean Corpuscular Volume 83.9 fL (80.0-98.0); Mean Platelet Volume 9.5 fL (9.4-12.4); NRBC Pct Auto 0.3 /100WBC (0.0-0.2); Platelet Count 446 X10*3/uL (160-400); Red Blood Count 4.59 X10*6/uL (4.60-5.80); Red Cell Distribution Width 16.9 % (11.0-16.0)
[2023-09-14 11:22] LABS: Venous Blood Gas Refer to POC result
[2023-09-14 11:23] LABS: VBG pH 7.17 (7.32-7.43)
[2023-09-14 11:26] LABS: Lactic Acid 2.6 mmol/L (0.5-2.0)
[2023-09-14 11:28] LABS: WBC ABN SCTR FOR CBC 1
[2023-09-14 11:32] LABS: White Blood Count 37.8 X10*3/uL (4.8-10.8)
[2023-09-14 11:34] LABS: Alanine Aminotransferase 15 U/L (0-40); Albumin Level 2.4 g/dL (3.5-5.0); Alkaline Phosphatase 139 U/L (39-117); Anion Gap 23 (12-20); Aspartate Amino Transferase 10 U/L (5-37); Bilirubin Total 0.2 mg/dL (0.0-1.0); Blood Urea Nitrogen 38 mg/dL (9-16); C Reactive Protein 29.26 mg/dL (< or = 0.50); Calcium 10.2 mg/dL (8.4-10.2); Carbon Dioxide 9 mmol/L (22-29); Chloride 104 mmol/L (96-108); Creatinine Clr Calc Pharmacy 69.5; Estimated Glomerular Filt Rate 41; Glucose Random 641 mg/dL (60-115); Magnesium 2.5 mg/dL (1.6-2.6); Potassium 2.5 mmol/L (3.3-5.1); Sodium 133 mmol/L (135-145); Total Protein 6.2 g/dL (6.5-8.0)
[2023-09-14 11:41] LABS: Beta-Hydroxybutyrate 7.59 mmol/L (0.02-0.27)
[2023-09-14 11:46] LABS: Neutrophils Percent Manual 76 % (45-73)
[2023-09-14 11:53] LABS: Band Neutrophils Percent 11 % (3-5); Burr Cells 3+ (>5) /OIF; Lymphocytes Absolute Manual 0.8 X10*3/uL (1.2-4.9); Lymphocytes Percent Manual 2 % (20-40); Metamyelocytes Absolute 1.5 X10*3/uL; Metamyelocytes Percent 4 %; Monocytes Absolute Manual 1.1 X10*3/uL (0.1-1.2); Monocytes Percent Manual 3 % (2-11); Myelocytes Absolute 0.8 X10*/uL; Myelocytes Percent 2 %; Neutrophils Absolute Manual 32.9 X10*3/uL (2.0-8.3); Nucleated Red Blood Cells 1 /100WBC (0-0); Platelet Estimate NORMAL (NORMAL); Platelet Morphology Comment NORMAL; Promyelocytes Absolute 0.8 X10*3/uL; Promyelocytes Percent 2 %; RBC Morphology NOTED
[2023-09-14 12:05] LABS: Erythrocyte Sedimentation Rate 54 MM/HR (0-15)
[2023-09-14] MEDS: Clindamycin Phosphate/D5W 600 MG/50 ML PIGGYBACK 100 MG IV ×2 (12:06→21:25)
[2023-09-14 12:08] LABS: Appearance Urine Cloudy; Color Urine Yellow; Glucose Urine UA >=1000 mg/dL (Negative); Leukocyte Esterase Urine Negative (Negative); Nitrite Urine Negative (Negative); Specific Gravity - Urine 1.025 (1.005-1.025); UMIC TRIGGER UACC YES; Urine Blood Trace (Negative); Urine Ketones 40 mg/dL (Negative); Urine Protein 30 (1+) mg/dL (Neg-Trace)
[2023-09-14] MEDS: iohexoL 350 MG/ML 75 ML INFUS..BTL 85 ML IV (12:17)
[2023-09-14 12:28] LABS: Bacteria Urine None Seen (None Seen); RBC Urine 0-2 /HPF (0-2); WBC Urine 0-5 /HPF (0-5)
[2023-09-14] MEDS: Potassium Chloride/H20 10 MEQ/100 ML PIGGYBACK 100 MEQ IV ×3 (12:31→15:40)
[2023-09-14] MEDS: Insulin Regular, Human 100 UNIT/ML 10 ML VIAL IVPUSH (12:40)
--- NOTE | 2023-09-14 12:40 | P.HPCC_ITS ---
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, admitted ICU pending debridement Review of Systems 2 Review of Systems: Yes all other systems are reviewed and are negative PMFSH Past Medical History Medical History (Updated 09/14/23 @ 13:04 by Michael Matthew MD) Soft tissue infection Morbid obesity Back pain KIM (obstructive sleep apnea) Anxiety and depression Elevated WBCs Type 2 diabetes mellitus HTN (hypertension) Surgical History Surgical History (Updated 03/14/22 @ 10:49 by Sadaf Schaffer RN) Hx of oral surgery Social History Social History Alcohol intake: never Patient Tobacco Use Status: Current everyday Tobacco user Tobacco use type: Cigarette Cigarettes Per Day: 10 Smoked in Last 30 Days: Yes Use of substances other than those prescribed or required for medical reasons: Yes Substance Use Type: Marijuana Substance Use Frequency: Chronic Longstanding Advance Directives: No Advance Directives Information Provided: Yes Meds Allergies Allergy/AdvReac Type Severity Reaction Status Date / Time No Known Allergies Allergy Verified 09/14/23 11:03 Active Medications: Current Medications Vancomycin HCl 2,000 mg/ (Sodium Chloride) 500 mls @ 250 mls/hr IV ONCE ONE Stop: 09/14/23 13:36 Last Admin: 09/14/23 12:27 Dose: 250 mls/hr Potassium Chloride (Potassium Chloride/H20) 10 meq in 100 mls @ 100 mls/hr IV Q1H VIKTORIYA Stop: 09/14/23 16:14 Last Admin: 09/14/23 12:31 Dose: 100 mls/hr Home Medications ?Medication ?Instructions ?Recorded ?Confirmed ?Last Taken ?Type cholecalciferol (vitamin D3) 50 1 cap PO DAILY 02/27/22 02/27/22 Unknown History mcg (2,000 unit) capsule (Vitamin D3) clonazepam 1 mg tablet 1 tab PO BID 02/27/22 02/27/22 Unknown History cyanocobalamin (vitamin B-12) 1 tab PO DAILY 02/27/22 02/27/22 Unknown History 1,000 mcg tablet dulaglutide 4.5 mg/0.5 mL 0.5 ml subcut QWEEK 02/27/22 02/27/22 Unknown History subcutaneous pen injector (Trulicity) empagliflozin 25 mg tablet 1 tab PO QAM 02/27/22 02/27/22 Unknown History (Jardiance) gabapentin 300 mg capsule 1 cap PO BID 02/27/22 02/27/22 Unknown History lisinopril 20 mg tablet 1 tab PO DAILY 02/27/22 02/27/22 03/14/22 History mirtazapine 45 mg tablet 1 tab BEDTIME 02/27/22 02/27/22 Unknown History ropinirole 1 mg tablet 1 tab PO BEDTIME 02/27/22 02/27/22 Unknown History sertraline 100 mg tablet 2 tab PO DAILY 02/27/22 02/27/22 Unknown History tramadol 50 mg tablet 1 - 2 tab PO Q8H PRN Pain 02/27/22 02/27/22 Unknown History mometasone 200 mcg/actuation HFA 1 puff inhalation BID 09/14/23 Unknown History aerosol inhaler (Asmanex HFA) ziprasidone HCl 40 mg capsule 40 mg PO QPM 09/14/23 Unknown History Physical Exam 2 Vital Signs: Vital Signs: Last Vital Signs Temp 97.3 F 09/14/23 12:13 Pulse 94 09/14/23 12:13 Resp 20 09/14/23 12:13 BP 102/37 L 09/14/23 12:13 Pulse Ox 95 09/14/23 12:13 O2 Del Method Nasal Cannula 09/14/23 12:13 O2 Flow Rate 2.0 09/14/23 12:13 BMI result Body Mass Index 52.1 Const: General: cooperative, comfortable, no acute distress, well developed, alert, awake and Physically active Orientation/consciousness: patient oriented x3 HEENT: Head: Yes normal to inspection, Yes normocephalic and Yes atraumatic Eyes: General: appearance normal, both eyes and all related structures Neck: Neck: Yes normal visual inspection, Yes full ROM, Yes trachea midline and Yes supple Chest: Chest palpation & inspection: normal inspection of the chest Resp: Other: no appreciable rales, rhonchi, wheezing Effort & Inspection: normal respiratory effort Cardio: Rate: regular rate Rhythm: regular rhythm GI: Inspection: Yes normal to inspection, No Abdominal wall edema and No distended Palpation (GI): Soft to palpation, not firm, nontender, no guarding and not rigid : Other: appreciable erythema bilateral inner thighs w/ some tenderness to palpation; no appreciable overt scrotal edema, fluctuance, induration Skin: Other: as described above Neuro: General: patient oriented x3, tone normal, moves all extremities and no focal motor deficits Extrem: General: Yes normal to inspection, Yes full ROM, Yes capillary refill normal and Yes no clubbing, cyanosis or edema Psych: Appearance: grossly normal Results Labs 09/14/23 13:31 09/14/23 10:56 Labs: Laboratory Results - last 24 hr 09/14/23 09/14/23 09/14/23 10:40 10:41 10:56 MCV 83.9 MCH 29.0 MCHC 34.5 RDW 16.9 H Plt Count 446 H MPV 9.5 Immature Gran % (Auto) Cancelled Neut % (Auto) Cancelled Lymph % (Auto) Cancelled [place] % (Auto) Cancelled Eos % (Auto) Cancelled Baso % (Auto) Cancelled Lymph # (Auto) Cancelled [place] # (Auto) Cancelled Eos # (Auto) Cancelled Baso # (Auto) Cancelled Abs Immat Gran (auto) Cancelled Absolute Neuts (auto) Cancelled Absolute Nucleated RBC 0.110 H Nucleated RBC % (auto) 0.3 H Neutrophils % (Manual) 76 H Band Neutrophils % 11 H Lymphocytes % (Manual) 2 L Monocytes % (Manual) 3 Metamyelocytes % 4 Myelocytes % 2 Promyelocytes % 2 Abs Neuts (Manual) 32.9 H Lymphocytes # (Manual) 0.8 L Monocytes # (Manual) 1.1 Metamyelocytes # 1.5 Myelocytes # 0.8 Promyelocytes # 0.8 Nucleated RBCs 1 H Platelet Estimate NORMAL Plt Morphology Comment NORMAL RBC Morphology NOTED [place] Cells 3+ (>5) ESR 54 H VBG pH VBG pCO2 VBG pO2 VBG HCO3 VBG O2 Saturation VBG Base Excess Anion Gap 23 H Estim Creat Clear Calc 69.5 Estimated GFR 41 POC Glucose Random Glucose 641 H* Lactic Acid 2.6 H* Calcium 10.2 D Magnesium 2.5 Total Bilirubin 0.2 AST 10 ALT 15 Alkaline Phosphatase 139 H C-Reactive Protein 29.26 H Total Protein 6.2 L Albumin 2.4 L Beta-Hydroxybutyrate 7.59 H Urine Color Urine Appearance Urine pH Ur Specific [place] Urine Protein Urine Glucose (UA) Urine Ketones Urine Blood Urine Nitrite Ur Leukocyte Esterase Urine RBC Urine WBC Ur Squamous Epith Cells Urine Bacteria Hyaline Casts 09/14/23 09/14/23 09/14/23 11:03 11:06 11:49 MCV MCH MCHC RDW Plt Count MPV Immature Gran % (Auto) Neut % (Auto) Lymph % (Auto) [place] % (Auto) Eos % (Auto) Baso % (Auto) Lymph # (Auto) [place] # (Auto) Eos # (Auto) Baso # (Auto) Abs Immat Gran (auto) Absolute Neuts (auto) Absolute Nucleated RBC Nucleated RBC % (auto) Neutrophils % (Manual) Band Neutrophils % Lymphocytes % (Manual) Monocytes % (Manual) Metamyelocytes % Myelocytes % Promyelocytes % Abs Neuts (Manual) Lymphocytes # (Manual) Monocytes # (Manual) Metamyelocytes # Myelocytes # Promyelocytes # Nucleated RBCs Platelet Estimate Plt Morphology Comment RBC Morphology [place] Cells ESR VBG pH 7.17 L* VBG pCO2 18 VBG pO2 147 VBG HCO3 7 L VBG O2 Saturation 98.0 VBG Base Excess -19.0 Anion Gap Estim Creat Clear Calc Estimated GFR POC Glucose 590 H* Random Glucose Lactic Acid Calcium Magnesium Total Bilirubin AST ALT Alkaline Phosphatase C-Reactive Protein Total Protein Albumin Beta-Hydroxybutyrate Urine Color Yellow Urine Appearance Cloudy Urine pH 6.0 Ur Specific [place] 1.025 Urine Protein 30 (1+) H Urine Glucose (UA) >=1000 H Urine Ketones 40 Urine Blood Trace H Urine Nitrite Negative Ur Leukocyte Esterase Negative Urine RBC 0-2 Urine WBC 0-5 Ur Squamous Epith Cells 3-5 Urine Bacteria None Seen Hyaline Casts 6-10 Assessment and Plan (1) Jory's disease: Status: Acute (2) DKA (diabetic ketoacidosis): Status: Acute Plan Patient is a 48 Y M with hypertension, diabetes mellitus, presenting with c/f perineal?infection, 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
[2023-09-14 12:43] LABS: Glucose, Whole Blood 550 mg/dL (60-115)
[2023-09-14 13:01] LABS: Reflex Lactate? Lactic Acid Added
--- NOTE | 2023-09-14 13:02 | P.CONGS_ITS ---
History of Present Illness Consult details Consult date: 09/14/23 Narrative: 48-year-old male, with diabetes, morbid obesity, who came to the ER this morning because of on the right groin along with discharge. He said that he has had this swelling on the right groin for about almost a week now. This has been draining as well. He also says that he has not been taking his diabetes medications for several days He says he has been feeling sick at home with body malaise, fatigue and overall sense of being unwell for several days. Review of Systems 2 Constitutional: Constitutional: Reports chills, Denies fever(s), Reports malaise and Reports weakness Cardiovascular: Cardiovascular: Denies chest pain Respiratory: Respiratory: Denies cough Gastrointestinal: Gastrointestinal: Denies abdominal pain Genitourinary: Genitourinary: Denies difficulty urinating Musculoskeletal: Musculoskeletal: Reports myalgias Neurologic: Reports weakness PMFSH Past Medical History Medical History (Updated 09/15/23 @ 14:23 by Michael Matthew MD) Necrotizing soft tissue infection Soft tissue infection Morbid obesity Back pain KIM (obstructive sleep apnea) Anxiety and depression Elevated WBCs Type 2 diabetes mellitus HTN (hypertension) Surgical History Surgical History (Updated 03/14/22 @ 10:49 by Sadaf Schaffer RN) Hx of oral surgery Social History Social History Household Members: None Housing: Apartment Do you presently have visiting nurse or other home services: Yes ([employer] 4 times a week) Alcohol intake: never Patient Tobacco Use Status: Current everyday Tobacco user Tobacco use type: Cigarette Cigarettes Per Day: 2 Years Smoked: 25 Smoked in Last 30 Days: Yes e-Cigarette/Vaping Use: Never Used Patient Interested in Nicotine Replacement: No Use of substances other than those prescribed or required for medical reasons: No Substance Use Type: Marijuana Substance Use Frequency: Chronic Longstanding Currently Displaying Signs/Symptoms of Drug Intoxication Withdrawal: No Have you been hit, kicked, punched, or otherwise hurt by someone within the past year? If so, by whom?: No Do you feel safe in your current relationship?: No Current Relationship Is there a partner from a previous relationship who is making you feel unsafe now?: No Are you made to feel afraid or neglected: No Advance Directives: No Advance Directives Information Provided: Yes Advance Directives on File: Yes Advance Directives Date on File: 09/14/23 Do you have a plan to hurt others: No Plan Recently lost weight without trying: Unsure How much weight loss: Unsure Eating poorly because of decreased appetite: Yes Nutrition screen score: 5 Nutrition Risks: Dental problems service: No Meds Allergies Allergy/AdvReac Type Severity Reaction Status Date / Time No Known Allergies Allergy Verified 09/14/23 11:03 Active Medications: Current Medications Vancomycin HCl 2,000 mg/ (Sodium Chloride) 500 mls @ 250 mls/hr IV ONCE ONE Stop: 09/14/23 13:36 Last Admin: 09/14/23 12:27 Dose: 250 mls/hr Potassium Chloride (Potassium Chloride/H20) 10 meq in 100 mls @ 100 mls/hr IV Q1H VIKTORIYA Stop: 09/14/23 16:14 Last Admin: 09/14/23 12:31 Dose: 100 mls/hr Home Medications ?Medication ?Instructions ?Recorded ?Confirmed ?Last Taken ?Type cholecalciferol (vitamin D3) 50 1 cap PO DAILY 02/27/22 09/14/23 Unknown History mcg (2,000 unit) capsule (Vitamin D3) clonazepam 1 mg tablet 1 tab PO BID 02/27/22 09/14/23 Unknown History cyanocobalamin (vitamin B-12) 1 tab PO DAILY 02/27/22 09/14/23 Unknown History 1,000 mcg tablet dulaglutide 4.5 mg/0.5 mL 0.5 ml subcut QWEEK 02/27/22 02/27/22 Unknown History subcutaneous pen injector (Trulicity) empagliflozin 25 mg tablet 1 tab PO DAILY 02/27/22 09/15/23 Unknown History (Jardiance) gabapentin 300 mg capsule 1 cap PO BID 02/27/22 09/14/23 Unknown History lisinopril 20 mg tablet 1 tab PO DAILY 02/27/22 09/14/23 03/14/22 History mirtazapine 45 mg tablet 1 tab BEDTIME 02/27/22 09/14/23 Unknown History ropinirole 1 mg tablet 1 tab PO BEDTIME 02/27/22 09/14/23 Unknown History sertraline 100 mg tablet 2 tab PO DAILY 02/27/22 09/14/23 Unknown History tramadol 50 mg tablet 1 - 2 tab PO Q8H PRN Pain 02/27/22 09/14/23 Unknown History mometasone 200 mcg/actuation HFA 1 puff inhalation BID 09/14/23 09/14/23 Unknown History aerosol inhaler (Asmanex HFA) ziprasidone HCl 40 mg capsule 40 mg PO DAILY@1800 09/14/23 09/15/23 Unknown History Physical Exam 2 Vital Signs: Vital Signs: Last Vital Signs Temp 97.3 F 09/14/23 12:13 Pulse 94 09/14/23 12:13 Resp 20 09/14/23 12:13 BP 102/37 L 09/14/23 12:13 Pulse Ox 95 09/14/23 12:13 O2 Del Method Nasal Cannula 09/14/23 12:13 O2 Flow Rate 2.0 09/14/23 12:13 BMI result Body Mass Index 52.1 Const: Other: Morbidly obese, communicating well but looks unwell General: no acute distress Resp: Effort & Inspection: normal respiratory effort Cardio: Rhythm: regular rhythm GI: Other: Right groin area with note of significant foul-smelling drainage from sinuses in the increase, induration, severe tenderness, although with no obvious fluctuance Palpation (GI): Soft to palpation Results Labs 09/16/23 04:35 09/16/23 04:35 Labs: Abnormal lab results 09/14/23 09/14/23 09/14/23 Range/Units 10:40 10:41 10:56 WBC 37.8 H* (4.8-10.8) X10*3/uL RBC 4.59 L (4.60-5.80) X10*6/uL Hgb 13.3 L (14.0-18.0) g/dl Hct 38.5 L (42.0-52.0) % RDW 16.9 H (11.0-16.0) % Plt Count 446 H (160-400) X10*3/uL Absolute Nucleated RBC 0.110 H (0.0-0.012) X10*3/uL Nucleated RBC % (auto) 0.3 H (0.0-0.2) /100WBC Neutrophils % (Manual) 76 H (45-73) % Band Neutrophils % 11 H (3-5) % Lymphocytes % (Manual) 2 L (20-40) % Abs Neuts (Manual) 32.9 H (2.0-8.3) X10*3/uL Lymphocytes # (Manual) 0.8 L (1.2-4.9) X10*3/uL Nucleated RBCs 1 H (0-0) /100WBC ESR 54 H (0-15) MM/HR VBG pH (7.32-7.43) VBG HCO3 (22-26) mmol/L Sodium 133 L (135-145) mmol/L Potassium 2.5 L* D (3.3-5.1) mmol/L Carbon Dioxide 9 L* D (22-29) mmol/L Anion Gap 23 H (12-20) BUN 38 H (9-16) mg/dL Creatinine 1.80 H (0.5-1.4) mg/dL POC Glucose (60-115) mg/dL Random Glucose 641 H* (60-115) mg/dL Lactic Acid 2.6 H* (0.5-2.0) mmol/L Alkaline Phosphatase 139 H (39-117) U/L C-Reactive Protein 29.26 H (< or = 0.50) mg/dL Total Protein 6.2 L (6.5-8.0) g/dL Albumin 2.4 L (3.5-5.0) g/dL Beta-Hydroxybutyrate 7.59 H (0.02-0.27) mmol/L Urine Protein (Neg-Trace) mg/dL Urine Glucose (UA) (Negative) mg/dL Urine Blood (Negative) 09/14/23 09/14/23 09/14/23 Range/Units 11:03 11:06 11:49 WBC (4.8-10.8) X10*3/uL RBC (4.60-5.80) X10*6/uL Hgb (14.0-18.0) g/dl Hct (42.0-52.0) % RDW (11.0-16.0) % Plt Count (160-400) X10*3/uL Absolute Nucleated RBC (0.0-0.012) X10*3/uL Nucleated RBC % (auto) (0.0-0.2) /100WBC Neutrophils % (Manual) (45-73) % Band Neutrophils % (3-5) % Lymphocytes % (Manual) (20-40) % Abs Neuts (Manual) (2.0-8.3) X10*3/uL Lymphocytes # (Manual) (1.2-4.9) X10*3/uL Nucleated RBCs (0-0) /100WBC ESR (0-15) MM/HR VBG pH 7.17 L* (7.32-7.43) VBG HCO3 7 L (22-26) mmol/L Sodium (135-145) mmol/L Potassium (3.3-5.1) mmol/L Carbon Dioxide (22-29) mmol/L Anion Gap (12-20) BUN (9-16) mg/dL Creatinine (0.5-1.4) mg/dL POC Glucose 590 H* (60-115) mg/dL Random Glucose (60-115) mg/dL Lactic Acid (0.5-2.0) mmol/L Alkaline Phosphatase (39-117) U/L C-Reactive Protein (< or = 0.50) mg/dL Total Protein (6.5-8.0) g/dL Albumin (3.5-5.0) g/dL Beta-Hydroxybutyrate (0.02-0.27) mmol/L Urine Protein 30 (1+) H (Neg-Trace) mg/dL Urine Glucose (UA) >=1000 H (Negative) mg/dL Urine Blood Trace H (Negative) 09/14/23 Range/Units 12:39 WBC (4.8-10.8) X10*3/uL RBC (4.60-5.80) X10*6/uL Hgb (14.0-18.0) g/dl Hct (42.0-52.0) % RDW (11.0-16.0) % Plt Count (160-400) X10*3/uL Absolute Nucleated RBC (0.0-0.012) X10*3/uL Nucleated RBC % (auto) (0.0-0.2) /100WBC Neutrophils % (Manual) (45-73) % Band Neutrophils % (3-5) % Lymphocytes % (Manual) (20-40) % Abs Neuts (Manual) (2.0-8.3) X10*3/uL Lymphocytes # (Manual) (1.2-4.9) X10*3/uL Nucleated RBCs (0-0) /100WBC ESR (0-15) MM/HR VBG pH (7.32-7.43) VBG HCO3 (22-26) mmol/L Sodium (135-145) mmol/L Potassium (3.3-5.1) mmol/L Carbon Dioxide (22-29) mmol/L Anion Gap (12-20) BUN (9-16) mg/dL Creatinine (0.5-1.4) mg/dL POC Glucose 550 H* (60-115) mg/dL Random Glucose (60-115) mg/dL Lactic Acid (0.5-2.0) mmol/L Alkaline Phosphatase (39-117) U/L C-Reactive Protein (< or = 0.50) mg/dL Total Protein (6.5-8.0) g/dL Albumin (3.5-5.0) g/dL Beta-Hydroxybutyrate (0.02-0.27) mmol/L Urine Protein (Neg-Trace) mg/dL Urine Glucose (UA) (Negative) mg/dL Urine Blood (Negative) Short CBC 09/14/23 Range/Units 10:41 WBC 37.8 H* (4.8-10.8) X10*3/uL Hgb 13.3 L (14.0-18.0) g/dl Hct 38.5 L (42.0-52.0) % Plt Count 446 H (160-400) X10*3/uL BMP 09/14/23 10:56 Sodium 133 L Potassium 2.5 L* D Chloride 104 Carbon Dioxide 9 L* D BUN 38 H Creatinine 1.80 H Calcium 10.2 D Liver Function 09/14/23 Range/Units 10:56 Total Bilirubin 0.2 (0.0-1.0) mg/dL AST 10 (5-37) U/L ALT 15 (0-40) U/L Alkaline Phosphatase 139 H (39-117) U/L Albumin 2.4 L (3.5-5.0) g/dL Urine 09/14/23 Range/Units 11:49 Urine Color Yellow Urine Appearance Cloudy Urine pH 6.0 (5.0-9.0) Ur Specific Lane 1.025 (1.005-1.025) Urine Protein 30 (1+) H (Neg-Trace) mg/dL Urine Glucose (UA) >=1000 H (Negative) mg/dL All other labs normal. Assessment and Plan (1) Soft tissue infection: Status: Acute He is in DKA with a necrotizing soft tissue infection. He has marked leukocytosis. He is clinically septic and markedly acidotic. Overall clinical picture is suspicious for necrotizing soft tissue infection. He will need to be brought to the operating room for I and D and debridement of the area for source control. I had a long discussion with the technique of this procedure. I explained the risks including but not limited to bleeding, infections, open wound, intensive wound care postoperatively, as well as the benefits and alternatives. He has given consent. He appears competent and oriented to provide consent. He has significant fluid and electrolyte imbalance and these need to be corrected prior to him undergoing anesthesia. His blood sugars are over 500. His significantly acidotic. I have had multiple discussions with the ER, [employer], as well as the anesthesiologists with regards to this patient. As soon as he is deemed to be stable enough to undergo anesthesia, we will proceed with debridement and I&D. The patient is currently stable but in view of DKA, necrotizing subcu infection, can potentially be critically ill. (2) DKA (diabetic ketoacidosis): Status: Acute His blood sugars have to be corrected along with the acidosis. I have discussed this with the data developer as well as the anesthesiologist. Procedures Date of Service Date of Service: 09/16/23
[2023-09-14 13:42] LABS: Hematocrit 39.9 % (42.0-52.0); Hemoglobin 13.5 g/dl (14.0-18.0); Mean Corpuscular HGB Conc 33.8 g/dl (31.0-36.0); Mean Corpuscular Hemoglobin 28.7 pg (27.0-33.0); Mean Corpuscular Volume 84.9 fL (80.0-98.0); NRBC Pct Auto 0.2 /100WBC (0.0-0.2); Platelet Count 340 X10*3/uL (160-400); Red Cell Distribution Width 16.6 % (11.0-16.0); WBC ABN SCTR FOR CBC 1
[2023-09-14 13:43] LABS: White Blood Count 24.2 X10*3/uL (4.8-10.8)
--- NOTE | 2023-09-14 13:45 | PC.NURSE ---
Patient arrived from urgent care with complaints of lethargy, nausea, and feeling unwell a 5 days. States noticed about 5 days ago that he had cysts in his right groin areas. Reports pain as 10/10. Cysts draining large amount of bloody fluids. Provider in room to assess areas. 16fr 10cc torres placed with immediate urine output. Patient aware plan is to go to OR and then ICU. Blood sugars elevated , patient states has not been taking insulin or medications for the last few days. 20g in placed in left ac, 18 g placed in right ac. Family at bedside aware of plan of care. Report given to ICU , brought to ICU by JARRETT.
--- NOTE | 2023-09-14 13:52 | PC.NURSE ---
Juan Zheng called and updated on current condition and transfer to ICU. Juan Zheng can be reached at [phone]
[2023-09-14 13:54] LABS: ~Lactic Acid-LAB USE ONLY 2.2 mmol/L (0.5-2.0)
[2023-09-14 13:57] LABS: VBG Base Excess -19.2 mmol/L; VBG HCO3 6 mmol/L (22-26); VBG pCO2 16 mmHg; VBG pO2 76 mmHg
[2023-09-14 13:58] LABS: VBG pH 7.18 (7.32-7.43)
[2023-09-14 14:05] LABS: Band Neutrophils Percent 17 % (3-5); Lymphocytes Absolute Manual 1.5 X10*3/uL (1.2-4.9); Lymphocytes Percent Manual 6 % (20-40); Metamyelocytes Absolute 1.2 X10*3/uL; Metamyelocytes Percent 5 %; Monocytes Percent Manual 4 % (2-11); Myelocytes Absolute 0.2 X10*/uL; Myelocytes Percent 1 %; Neutrophils Absolute Manual 20.1 X10*3/uL (2.0-8.3); Neutrophils Percent Manual 66 % (45-73); Nucleated Red Blood Cells 1 /100WBC (0-0); Promyelocytes Absolute 0.2 X10*3/uL; Promyelocytes Percent 1 %
[2023-09-14 14:08] LABS: Platelet Estimate NORMAL (NORMAL); Platelet Morphology Comment NORMAL; RBC Morphology NORMAL
[2023-09-14 14:09] LABS: Toxic Vacuolation PRESENT
[2023-09-14 14:11] LABS: Magnesium 2.5 mg/dL (1.6-2.6); Phosphorus 2.2 mg/dL (2.7-4.5)
[2023-09-14 14:14] LABS: Alanine Aminotransferase 16 U/L (0-40); Albumin Level 2.3 g/dL (3.5-5.0); Alkaline Phosphatase 130 U/L (39-117); Anion Gap 20 (12-20); Aspartate Amino Transferase 10 U/L (5-37); Bilirubin Total 0.2 mg/dL (0.0-1.0); Blood Urea Nitrogen 38 mg/dL (9-16); Calcium 10.1 mg/dL (8.4-10.2); Carbon Dioxide 8 mmol/L (22-29); Chloride 108 mmol/L (96-108); Creatinine Clr Calc Pharmacy 72.3; Estimated Glomerular Filt Rate 43; Glucose Random 516 mg/dL (60-115); Potassium 2.4 mmol/L (3.3-5.1); Sodium 134 mmol/L (135-145); Total Protein 6.1 g/dL (6.5-8.0)
[2023-09-14] MEDS: Lactated Ringers 1,000 ML 999 ML IV ×2 (14:23→20:00)
[2023-09-14] MEDS: Sodium Bicarbonate 8.4% 50 MEQ/50 ML SYRINGE IVPUSH ×2 (14:23→15:04)
[2023-09-14] MEDS: Potassium Chloride Packet 20 MEQ PACKET 40 MEQ PO (15:04)
[2023-09-14] MEDS: Insulin Regular, Human 100 UNIT/ML 10 ML VIAL 10 UNIT IVPUSH ×2 (15:04→23:22)
--- NOTE | 2023-09-14 15:13 | HO.ANESPROP2 ---
HPI - Anesthesia Eval Consult details Narrative: for I&D groin for nec. fasciitis PMFSH Active Problems Active Problems: All Active Problems Soft tissue infection (Acute) Morbid obesity (Acute) Cuate gangrene (Acute) Cuate's disease (Acute) Bandemia (Acute) DKA (diabetic ketoacidosis) (Acute) Sepsis (Acute) Past Medical History Medical History (Updated 09/14/23 @ 13:04 by Michael Matthew MD) Soft tissue infection Morbid obesity Back pain KIM (obstructive sleep apnea) Anxiety and depression Elevated WBCs Type 2 diabetes mellitus HTN (hypertension) Family History Family history of problems with anesthesia: No Surgical History Surgical History (Updated 03/14/22 @ 10:49 by Sadaf Schaffer RN) Hx of oral surgery History of Problems with Anesthesia: No Social History Social History Household Members: None Housing: Apartment Do you presently have visiting nurse or other home services: Yes ([employer] 4 times a week) Alcohol intake: never Patient Tobacco Use Status: Current everyday Tobacco user Tobacco use type: Cigarette Cigarettes Per Day: 2 Years Smoked: 25 Smoked in Last 30 Days: Yes e-Cigarette/Vaping Use: Never Used Patient Interested in Nicotine Replacement: No Use of substances other than those prescribed or required for medical reasons: No Substance Use Type: Marijuana Substance Use Frequency: Chronic Longstanding Currently Displaying Signs/Symptoms of Drug Intoxication Withdrawal: No Have you been hit, kicked, punched, or otherwise hurt by someone within the past year? If so, by whom?: No Do you feel safe in your current relationship?: No Current Relationship Is there a partner from a previous relationship who is making you feel unsafe now?: No Are you made to feel afraid or neglected: No Advance Directives: No Advance Directives Information Provided: Yes Advance Directives on File: Yes Advance Directives Date on File: 09/14/23 Do you have a plan to hurt others: No Plan Recently lost weight without trying: Unsure How much weight loss: Unsure Eating poorly because of decreased appetite: Yes Nutrition screen score: 5 Nutrition Risks: Dental problems Meds Allergies Allergy/AdvReac Type Severity Reaction Status Date / Time No Known Allergies Allergy Verified 09/14/23 11:03 Active Medications: Current Medications Potassium Chloride (Potassium Chloride/H20) 10 meq in 100 mls @ 100 mls/hr IV Q1H VIKTORIYA Stop: 09/14/23 16:14 Last Admin: 09/14/23 14:23 Dose: 100 mls/hr Norepinephrine Bitartrate (Levophed) 8 mg in 250 mls @ 0 mls/hr IV .Q0M VIKTORIYA; Protocol Piperacillin Sod/Tazobactam (Sod 3.375 gm/ Sodium Chloride) 50 mls @ 100 mls/hr IV Q6H VIKTORIYA Clindamycin Phosphate (Cleocin) 600 mg in 50 mls @ 100 mls/hr IV Q8H VIKTORIYA Vancomycin HCl 750 mg/ Sodium (Chloride) 265 mls @ 265 mls/hr IV Q12H VIKTORIYA Potassium Phosphate (Kphos) 15 mmol in 250 mls @ 62.5 mls/hr IV ONCE ONE Stop: 09/14/23 18:26 Pharmacy Consult (Consult Rx Vancomycin Dosing) 1 each MISCELLANE DAILY PRN PRN Reason: Consult order Home Medications ?Medication ?Instructions ?Recorded ?Confirmed ?Last Taken ?Type cholecalciferol (vitamin D3) 50 1 cap PO DAILY 02/27/22 09/14/23 Unknown History mcg (2,000 unit) capsule (Vitamin D3) clonazepam 1 mg tablet 1 tab PO BID 02/27/22 09/14/23 Unknown History cyanocobalamin (vitamin B-12) 1 tab PO DAILY 02/27/22 09/14/23 Unknown History 1,000 mcg tablet dulaglutide 4.5 mg/0.5 mL 0.5 ml subcut QWEEK 02/27/22 02/27/22 Unknown History subcutaneous pen injector (Trulicity) empagliflozin 25 mg tablet 1 tab PO QAM 02/27/22 09/14/23 Unknown History (Jardiance) gabapentin 300 mg capsule 1 cap PO BID 02/27/22 09/14/23 Unknown History lisinopril 20 mg tablet 1 tab PO DAILY 02/27/22 09/14/23 03/14/22 History mirtazapine 45 mg tablet 1 tab BEDTIME 02/27/22 09/14/23 Unknown History ropinirole 1 mg tablet 1 tab PO BEDTIME 02/27/22 09/14/23 Unknown History sertraline 100 mg tablet 2 tab PO DAILY 02/27/22 09/14/23 Unknown History tramadol 50 mg tablet 1 - 2 tab PO Q8H PRN Pain 02/27/22 09/14/23 Unknown History mometasone 200 mcg/actuation HFA 1 puff inhalation BID 09/14/23 09/14/23 Unknown History aerosol inhaler (Asmanex HFA) ziprasidone HCl 40 mg capsule 40 mg PO QPM 09/14/23 09/14/23 Unknown History Exam Height,Weight and Vital Signs: Height 5 ft 6 in Weight 143.1 kg Last Vital Signs Temp 97.3 F 09/14/23 12:13 Pulse 95 09/14/23 14:00 Resp 25 H 09/14/23 14:00 BP 118/52 L 09/14/23 14:00 Pulse Ox 97 09/14/23 14:00 O2 Del Method Room Air 09/14/23 14:00 O2 Flow Rate 2.0 09/14/23 12:13 Pertinent Lab Results Pertinent Lab Results: Laboratory Tests 09/14/23 09/14/23 09/14/23 10:40 10:41 10:56 WBC 37.8 H* RBC 4.59 L Hgb 13.3 L Hct 38.5 L MCV 83.9 MCH 29.0 MCHC 34.5 RDW 16.9 H Plt Count 446 H MPV 9.5 Immature Gran % (Auto) Cancelled Neut % (Auto) Cancelled Lymph % (Auto) Cancelled [place] % (Auto) Cancelled Eos % (Auto) Cancelled Baso % (Auto) Cancelled Lymph # (Auto) Cancelled [place] # (Auto) Cancelled Eos # (Auto) Cancelled Baso # (Auto) Cancelled Abs Immat Gran (auto) Cancelled Absolute Neuts (auto) Cancelled Absolute Nucleated RBC 0.110 H Nucleated RBC % (auto) 0.3 H Neutrophils % (Manual) 76 H Band Neutrophils % 11 H Lymphocytes % (Manual) 2 L Monocytes % (Manual) 3 Metamyelocytes % 4 Myelocytes % 2 Promyelocytes % 2 Abs Neuts (Manual) 32.9 H Lymphocytes # (Manual) 0.8 L Monocytes # (Manual) 1.1 Metamyelocytes # 1.5 Myelocytes # 0.8 Promyelocytes # 0.8 Nucleated RBCs 1 H Toxic Vacuolation Platelet Estimate NORMAL Plt Morphology Comment NORMAL RBC Morphology NOTED [place] Cells 3+ (>5) ESR 54 H Hold Purple Top VBG pH VBG pCO2 VBG pO2 VBG HCO3 VBG O2 Saturation VBG Base Excess Sodium 133 L Potassium 2.5 L* D Chloride 104 Carbon Dioxide 9 L* D Anion Gap 23 H BUN 38 H Creatinine 1.80 H Estim Creat Clear Calc 69.5 Estimated GFR 41 POC Glucose Random Glucose 641 H* Lactic Acid 2.6 H* Lactic Acid F/U @ 2Hr Calcium 10.2 D Phosphorus Magnesium 2.5 Total Bilirubin 0.2 AST 10 ALT 15 Alkaline Phosphatase 139 H C-Reactive Protein 29.26 H Total Protein 6.2 L Albumin 2.4 L Beta-Hydroxybutyrate 7.59 H Urine Color Urine Appearance Urine pH Ur Specific [place] Urine Protein Urine Glucose (UA) Urine Ketones Urine Blood Urine Nitrite Ur Leukocyte Esterase Urine RBC Urine WBC Ur Squamous Epith Cells Urine Bacteria Hyaline Casts Blood Type Antibody Screen 09/14/23 09/14/23 09/14/23 11:03 11:06 11:49 WBC RBC Hgb Hct MCV MCH MCHC RDW Plt Count MPV Immature Gran % (Auto) Neut % (Auto) Lymph % (Auto) [place] % (Auto) Eos % (Auto) Baso % (Auto) Lymph # (Auto) [place] # (Auto) Eos # (Auto) Baso # (Auto) Abs Immat Gran (auto) Absolute Neuts (auto) Absolute Nucleated RBC Nucleated RBC % (auto) Neutrophils % (Manual) Band Neutrophils % Lymphocytes % (Manual) Monocytes % (Manual) Metamyelocytes % Myelocytes % Promyelocytes % Abs Neuts (Manual) Lymphocytes # (Manual) Monocytes # (Manual) Metamyelocytes # Myelocytes # Promyelocytes # Nucleated RBCs Toxic Vacuolation Platelet Estimate Plt Morphology Comment RBC Morphology [place] Cells ESR Hold Purple Top VBG pH 7.17 L* VBG pCO2 18 VBG pO2 147 VBG HCO3 7 L VBG O2 Saturation 98.0 VBG Base Excess -19.0 Sodium Potassium Chloride Carbon Dioxide Anion Gap BUN Creatinine Estim Creat Clear Calc Estimated GFR POC Glucose 590 H* Random Glucose Lactic Acid Lactic Acid F/U @ 2Hr Calcium Phosphorus Magnesium Total Bilirubin AST ALT Alkaline Phosphatase C-Reactive Protein Total Protein Albumin Beta-Hydroxybutyrate Urine Color Yellow Urine Appearance Cloudy Urine pH 6.0 Ur Specific [place] 1.025 Urine Protein 30 (1+) H Urine Glucose (UA) >=1000 H Urine Ketones 40 Urine Blood Trace H Urine Nitrite Negative Ur Leukocyte Esterase Negative Urine RBC 0-2 Urine WBC 0-5 Ur Squamous Epith Cells 3-5 Urine Bacteria None Seen Hyaline Casts 6-10 Blood Type Antibody Screen 09/14/23 09/14/23 09/14/23 12:39 13:31 13:31 WBC 24.2 H Cancelled RBC 4.70 Hgb Hct MCV MCH MCHC RDW Plt Count MPV Immature Gran % (Auto) Neut % (Auto) Lymph % (Auto) [place] % (Auto) Eos % (Auto) Baso % (Auto) Lymph # (Auto) [place] # (Auto) Eos # (Auto) Baso # (Auto) Abs Immat Gran (auto) Absolute Neuts (auto) Absolute Nucleated RBC Nucleated RBC % (auto) Neutrophils % (Manual) Band Neutrophils % Lymphocytes % (Manual) Monocytes % (Manual) Metamyelocytes % Myelocytes % Promyelocytes % Abs Neuts (Manual) Lymphocytes # (Manual) Monocytes # (Manual) Metamyelocytes # Myelocytes # Promyelocytes # Nucleated RBCs Toxic Vacuolation Platelet Estimate Plt Morphology Comment RBC Morphology [place] Cells ESR Hold Purple Top VBG pH VBG pCO2 VBG pO2 VBG HCO3 VBG O2 Saturation VBG Base Excess Sodium Potassium Chloride Carbon Dioxide Anion Gap BUN Creatinine Estim Creat Clear Calc Estimated GFR POC Glucose 550 H* Random Glucose Lactic Acid Lactic Acid F/U @ 2Hr Calcium Phosphorus Magnesium Total Bilirubin AST ALT Alkaline Phosphatase C-Reactive Protein Total Protein Albumin Beta-Hydroxybutyrate Urine Color Urine Appearance Urine pH Ur Specific [place] Urine Protein Urine Glucose (UA) Urine Ketones Urine Blood Urine Nitrite Ur Leukocyte Esterase Urine RBC Urine WBC Ur Squamous Epith Cells Urine Bacteria Hyaline Casts Blood Type Antibody Screen 09/14/23 09/14/23 09/14/23 13:31 13:31 13:31 WBC RBC Cancelled Hgb 13.5 L Cancelled Hct 39.9 L Cancelled MCV 84.9 MCH MCHC RDW Plt Count MPV Immature Gran % (Auto) Neut % (Auto) Lymph % (Auto) [place] % (Auto) Eos % (Auto) Baso % (Auto) Lymph # (Auto) [place] # (Auto) Eos # (Auto) Baso # (Auto) Abs Immat Gran (auto) Absolute Neuts (auto) Absolute Nucleated RBC Nucleated RBC % (auto) Neutrophils % (Manual) Band Neutrophils % Lymphocytes % (Manual) Monocytes % (Manual) Metamyelocytes % Myelocytes % Promyelocytes % Abs Neuts (Manual) Lymphocytes # (Manual) Monocytes # (Manual) Metamyelocytes # Myelocytes # Promyelocytes # Nucleated RBCs Toxic Vacuolation Platelet Estimate Plt Morphology Comment RBC Morphology [place] Cells ESR Hold Purple Top VBG pH VBG pCO2 VBG pO2 VBG HCO3 VBG O2 Saturation VBG Base Excess Sodium Potassium Chloride Carbon Dioxide Anion Gap BUN Creatinine Estim Creat Clear Calc Estimated GFR POC Glucose Random Glucose Lactic Acid Lactic Acid F/U @ 2Hr Calcium Phosphorus Magnesium Total Bilirubin AST ALT Alkaline Phosphatase C-Reactive Protein Total Protein Albumin Beta-Hydroxybutyrate Urine Color Urine Appearance Urine pH Ur Specific [place] Urine Protein Urine Glucose (UA) Urine Ketones Urine Blood Urine Nitrite Ur Leukocyte Esterase Urine RBC Urine WBC Ur Squamous Epith Cells Urine Bacteria Hyaline Casts Blood Type Antibody Screen 09/14/23 09/14/23 09/14/23 13:31 13:31 13:31 WBC RBC Hgb Hct MCV Cancelled MCH 28.7 Cancelled MCHC 33.8 Cancelled RDW 16.6 H Plt Count MPV Immature Gran % (Auto) Neut % (Auto) Lymph % (Auto) [place] % (Auto) Eos % (Auto) Baso % (Auto) Lymph # (Auto) [place] # (Auto) Eos # (Auto) Baso # (Auto) Abs Immat Gran (auto) Absolute Neuts (auto) Absolute Nucleated RBC Nucleated RBC % (auto) Neutrophils % (Manual) Band Neutrophils % Lymphocytes % (Manual) Monocytes % (Manual) Metamyelocytes % Myelocytes % Promyelocytes % Abs Neuts (Manual) Lymphocytes # (Manual) Monocytes # (Manual) Metamyelocytes # Myelocytes # Promyelocytes # Nucleated RBCs Toxic Vacuolation Platelet Estimate Plt Morphology Comment RBC Morphology [place] Cells ESR Hold Purple Top VBG pH VBG pCO2 VBG pO2 VBG HCO3 VBG O2 Saturation VBG Base Excess Sodium Potassium Chloride Carbon Dioxide Anion Gap BUN Creatinine Estim Creat Clear Calc Estimated GFR POC Glucose Random Glucose Lactic Acid Lactic Acid F/U @ 2Hr Calcium Phosphorus Magnesium Total Bilirubin AST ALT Alkaline Phosphatase C-Reactive Protein Total Protein Albumin Beta-Hydroxybutyrate Urine Color Urine Appearance Urine pH Ur Specific [place] Urine Protein Urine Glucose (UA) Urine Ketones Urine Blood Urine Nitrite Ur Leukocyte Esterase Urine RBC Urine WBC Ur Squamous Epith Cells Urine Bacteria Hyaline Casts Blood Type Antibody Screen 09/14/23 09/14/23 09/14/23 13:31 13:31 13:31 WBC RBC Hgb Hct MCV MCH MCHC RDW Cancelled Plt Count 340 Cancelled MPV 9.0 L Cancelled Immature Gran % (Auto) Cancelled Neut % (Auto) Lymph % (Auto) [place] % (Auto) Eos % (Auto) Baso % (Auto) Lymph # (Auto) [place] # (Auto) Eos # (Auto) Baso # (Auto) Abs Immat Gran (auto) Absolute Neuts (auto) Absolute Nucleated RBC Nucleated RBC % (auto) Neutrophils % (Manual) Band Neutrophils % Lymphocytes % (Manual) Monocytes % (Manual) Metamyelocytes % Myelocytes % Promyelocytes % Abs Neuts (Manual) Lymphocytes # (Manual) Monocytes # (Manual) Metamyelocytes # Myelocytes # Promyelocytes # Nucleated RBCs Toxic Vacuolation Platelet Estimate Plt Morphology Comment RBC Morphology [place] Cells ESR Hold Purple Top VBG pH VBG pCO2 VBG pO2 VBG HCO3 VBG O2 Saturation VBG Base Excess Sodium Potassium Chloride Carbon Dioxide Anion Gap BUN Creatinine Estim Creat Clear Calc Estimated GFR POC Glucose Random Glucose Lactic Acid Lactic Acid F/U @ 2Hr Calcium Phosphorus Magnesium Total Bilirubin AST ALT Alkaline Phosphatase C-Reactive Protein Total Protein Albumin Beta-Hydroxybutyrate Urine Color Urine Appearance Urine pH Ur Specific [place] Urine Protein Urine Glucose (UA) Urine Ketones Urine Blood Urine Nitrite Ur Leukocyte Esterase Urine RBC Urine WBC Ur Squamous Epith Cells Urine Bacteria Hyaline Casts Blood Type Antibody Screen 09/14/23 09/14/23 09/14/23 13:31 13:31 13:31 WBC RBC Hgb Hct MCV MCH MCHC RDW Plt Count MPV Immature Gran % (Auto) Cancelled Neut % (Auto) Cancelled Cancelled Lymph % (Auto) Cancelled Cancelled [place] % (Auto) Cancelled Eos % (Auto) Baso % (Auto) Lymph # (Auto) [place] # (Auto) Eos # (Auto) Baso # (Auto) Abs Immat Gran (auto) Absolute Neuts (auto) Absolute Nucleated RBC Nucleated RBC % (auto) Neutrophils % (Manual) Band Neutrophils % Lymphocytes % (Manual) Monocytes % (Manual) Metamyelocytes % Myelocytes % Promyelocytes % Abs Neuts (Manual) Lymphocytes # (Manual) Monocytes # (Manual) Metamyelocytes # Myelocytes # Promyelocytes # Nucleated RBCs Toxic Vacuolation Platelet Estimate Plt Morphology Comment RBC Morphology [place] Cells ESR Hold Purple Top VBG pH VBG pCO2 VBG pO2 VBG HCO3 VBG O2 Saturation VBG Base Excess Sodium Potassium Chloride Carbon Dioxide Anion Gap BUN Creatinine Estim Creat Clear Calc Estimated GFR POC Glucose Random Glucose Lactic Acid Lactic Acid F/U @ 2Hr Calcium Phosphorus Magnesium Total Bilirubin AST ALT Alkaline Phosphatase C-Reactive Protein Total Protein Albumin Beta-Hydroxybutyrate Urine Color Urine Appearance Urine pH Ur Specific [place] Urine Protein Urine Glucose (UA) Urine Ketones Urine Blood Urine Nitrite Ur Leukocyte Esterase Urine RBC Urine WBC Ur Squamous Epith Cells Urine Bacteria Hyaline Casts Blood Type Antibody Screen 09/14/23 09/14/23 09/14/23 13:31 13:31 13:31 WBC RBC Hgb Hct MCV MCH MCHC RDW Plt Count MPV Immature Gran % (Auto) Neut % (Auto) Lymph % (Auto) [place] % (Auto) Cancelled Eos % (Auto) Cancelled Cancelled Baso % (Auto) Cancelled Cancelled Lymph # (Auto) Cancelled [place] # (Auto) Eos # (Auto) Baso # (Auto) Abs Immat Gran (auto) Absolute Neuts (auto) Absolute Nucleated RBC Nucleated RBC % (auto) Neutrophils % (Manual) Band Neutrophils % Lymphocytes % (Manual) Monocytes % (Manual) Metamyelocytes % Myelocytes % Promyelocytes % Abs Neuts (Manual) Lymphocytes # (Manual) Monocytes # (Manual) Metamyelocytes # Myelocytes # Promyelocytes # Nucleated RBCs Toxic Vacuolation Platelet Estimate Plt Morphology Comment RBC Morphology [place] Cells ESR Hold Purple Top VBG pH VBG pCO2 VBG pO2 VBG HCO3 VBG O2 Saturation VBG Base Excess Sodium Potassium Chloride Carbon Dioxide Anion Gap BUN Creatinine Estim Creat Clear Calc Estimated GFR POC Glucose Random Glucose Lactic Acid Lactic Acid F/U @ 2Hr Calcium Phosphorus Magnesium Total Bilirubin AST ALT Alkaline Phosphatase C-Reactive Protein Total Protein Albumin Beta-Hydroxybutyrate Urine Color Urine Appearance Urine pH Ur Specific [place] Urine Protein Urine Glucose (UA) Urine Ketones Urine Blood Urine Nitrite Ur Leukocyte Esterase Urine RBC Urine WBC Ur Squamous Epith Cells Urine Bacteria Hyaline Casts Blood Type Antibody Screen 09/14/23 09/14/23 09/14/23 13:31 13:31 13:31 WBC RBC Hgb Hct MCV MCH MCHC RDW Plt Count MPV Immature Gran % (Auto) Neut % (Auto) Lymph % (Auto) [place] % (Auto) Eos % (Auto) Baso % (Auto) Lymph # (Auto) Cancelled [place] # (Auto) Cancelled Cancelled Eos # (Auto) Cancelled Cancelled Baso # (Auto) Cancelled Abs Immat Gran (auto) Absolute Neuts (auto) Absolute Nucleated RBC Nucleated RBC % (auto) Neutrophils % (Manual) Band Neutrophils % Lymphocytes % (Manual) Monocytes % (Manual) Metamyelocytes % Myelocytes % Promyelocytes % Abs Neuts (Manual) Lymphocytes # (Manual) Monocytes # (Manual) Metamyelocytes # Myelocytes # Promyelocytes # Nucleated RBCs Toxic Vacuolation Platelet Estimate Plt Morphology Comment RBC Morphology [place] Cells ESR Hold Purple Top VBG pH VBG pCO2 VBG pO2 VBG HCO3 VBG O2 Saturation VBG Base Excess Sodium Potassium Chloride Carbon Dioxide Anion Gap BUN Creatinine Estim Creat Clear Calc Estimated GFR POC Glucose Random Glucose Lactic Acid Lactic Acid F/U @ 2Hr Calcium Phosphorus Magnesium Total Bilirubin AST ALT Alkaline Phosphatase C-Reactive Protein Total Protein Albumin Beta-Hydroxybutyrate Urine Color Urine Appearance Urine pH Ur Specific [place] Urine Protein Urine Glucose (UA) Urine Ketones Urine Blood Urine Nitrite Ur Leukocyte Esterase Urine RBC Urine WBC Ur Squamous Epith Cells Urine Bacteria Hyaline Casts Blood Type Antibody Screen 09/14/23 09/14/23 09/14/23 13:31 13:31 13:31 WBC RBC Hgb Hct MCV MCH MCHC RDW Plt Count MPV Immature Gran % (Auto) Neut % (Auto) Lymph % (Auto) [place] % (Auto) Eos % (Auto) Baso % (Auto) Lymph # (Auto) [place] # (Auto) Eos # (Auto) Baso # (Auto) Cancelled Abs Immat Gran (auto) Cancelled Cancelled Absolute Neuts (auto) Cancelled Cancelled Absolute Nucleated RBC 0.050 H Nucleated RBC % (auto) Neutrophils % (Manual) Band Neutrophils % Lymphocytes % (Manual) Monocytes % (Manual) Metamyelocytes % Myelocytes % Promyelocytes % Abs Neuts (Manual) Lymphocytes # (Manual) Monocytes # (Manual) Metamyelocytes # Myelocytes # Promyelocytes # Nucleated RBCs Toxic Vacuolation Platelet Estimate Plt Morphology Comment RBC Morphology [place] Cells ESR Hold Purple Top VBG pH VBG pCO2 VBG pO2 VBG HCO3 VBG O2 Saturation VBG Base Excess Sodium Potassium Chloride Carbon Dioxide Anion Gap BUN Creatinine Estim Creat Clear Calc Estimated GFR POC Glucose Random Glucose Lactic Acid Lactic Acid F/U @ 2Hr Calcium Phosphorus Magnesium Total Bilirubin AST ALT Alkaline Phosphatase C-Reactive Protein Total Protein Albumin Beta-Hydroxybutyrate Urine Color Urine Appearance Urine pH Ur Specific [place] Urine Protein Urine Glucose (UA) Urine Ketones Urine Blood Urine Nitrite Ur Leukocyte Esterase Urine RBC Urine WBC Ur Squamous Epith Cells Urine Bacteria Hyaline Casts Blood Type Antibody Screen 09/14/23 09/14/23 09/14/23 13:31 13:31 13:31 WBC RBC Hgb Hct MCV MCH MCHC RDW Plt Count MPV Immature Gran % (Auto) Neut % (Auto) Lymph % (Auto) [place] % (Auto) Eos % (Auto) Baso % (Auto) Lymph # (Auto) [place] # (Auto) Eos # (Auto) Baso # (Auto) Abs Immat Gran (auto) Absolute Neuts (auto) Absolute Nucleated RBC Cancelled Nucleated RBC % (auto) 0.2 Cancelled Neutrophils % (Manual) 66 Band Neutrophils % 17 H Lymphocytes % (Manual) 6 L Monocytes % (Manual) 4 Metamyelocytes % 5 Myelocytes % 1 Promyelocytes % 1 Abs Neuts (Manual) 20.1 H Lymphocytes # (Manual) 1.5 Monocytes # (Manual) 1.0 Metamyelocytes # 1.2 Myelocytes # 0.2 Promyelocytes # 0.2 Nucleated RBCs 1 H Toxic Vacuolation PRESENT Platelet Estimate NORMAL Plt Morphology Comment NORMAL RBC Morphology NORMAL [place] Cells ESR Hold Purple Top SEE NOTE VBG pH VBG pCO2 VBG pO2 VBG HCO3 VBG O2 Saturation VBG Base Excess Sodium 134 L Cancelled Potassium 2.4 L* Chloride Carbon Dioxide Anion Gap BUN Creatinine Estim Creat Clear Calc Estimated GFR POC Glucose Random Glucose Lactic Acid Lactic Acid F/U @ 2Hr Calcium Phosphorus Magnesium Total Bilirubin AST ALT Alkaline Phosphatase C-Reactive Protein Total Protein Albumin Beta-Hydroxybutyrate Urine Color Urine Appearance Urine pH Ur Specific [place] Urine Protein Urine Glucose (UA) Urine Ketones Urine Blood Urine Nitrite Ur Leukocyte Esterase Urine RBC Urine WBC Ur Squamous Epith Cells Urine Bacteria Hyaline Casts Blood Type Antibody Screen 09/14/23 09/14/23 09/14/23 13:31 13:31 13:31 WBC RBC Hgb Hct MCV MCH MCHC RDW Plt Count MPV Immature Gran % (Auto) Neut % (Auto) Lymph % (Auto) [place] % (Auto) Eos % (Auto) Baso % (Auto) Lymph # (Auto) [place] # (Auto) Eos # (Auto) Baso # (Auto) Abs Immat Gran (auto) Absolute Neuts (auto) Absolute Nucleated RBC Nucleated RBC % (auto) Neutrophils % (Manual) Band Neutrophils % Lymphocytes % (Manual) Monocytes % (Manual) Metamyelocytes % Myelocytes % Promyelocytes % Abs Neuts (Manual) Lymphocytes # (Manual) Monocytes # (Manual) Metamyelocytes # Myelocytes # Promyelocytes # Nucleated RBCs Toxic Vacuolation Platelet Estimate Plt Morphology Comment RBC Morphology [place] Cells ESR Hold Purple Top VBG pH VBG pCO2 VBG pO2 VBG HCO3 VBG O2 Saturation VBG Base Excess Sodium Potassium Cancelled Chloride 108 Cancelled Carbon Dioxide 8 L* Cancelled Anion Gap 20 BUN Creatinine Estim Creat Clear Calc Estimated GFR POC Glucose Random Glucose Lactic Acid Lactic Acid F/U @ 2Hr Calcium Phosphorus Magnesium Total Bilirubin AST ALT Alkaline Phosphatase C-Reactive Protein Total Protein Albumin Beta-Hydroxybutyrate Urine Color Urine Appearance Urine pH Ur Specific [place] Urine Protein Urine Glucose (UA) Urine Ketones Urine Blood Urine Nitrite Ur Leukocyte Esterase Urine RBC Urine WBC Ur Squamous Epith Cells Urine Bacteria Hyaline Casts Blood Type Antibody Screen 09/14/23 09/14/23 09/14/23 13:31 13:31 13:31 WBC RBC Hgb Hct MCV MCH MCHC RDW Plt Count MPV Immature Gran % (Auto) Neut % (Auto) Lymph % (Auto) [place] % (Auto) Eos % (Auto) Baso % (Auto) Lymph # (Auto) [place] # (Auto) Eos # (Auto) Baso # (Auto) Abs Immat Gran (auto) Absolute Neuts (auto) Absolute Nucleated RBC Nucleated RBC % (auto) Neutrophils % (Manual) Band Neutrophils % Lymphocytes % (Manual) Monocytes % (Manual) Metamyelocytes % Myelocytes % Promyelocytes % Abs Neuts (Manual) Lymphocytes # (Manual) Monocytes # (Manual) Metamyelocytes # Myelocytes # Promyelocytes # Nucleated RBCs Toxic Vacuolation Platelet Estimate Plt Morphology Comment RBC Morphology [place] Cells ESR Hold Purple Top VBG pH VBG pCO2 VBG pO2 VBG HCO3 VBG O2 Saturation VBG Base Excess Sodium Potassium Chloride Carbon Dioxide Anion Gap Cancelled BUN 38 H Cancelled Creatinine 1.73 H Cancelled Estim Creat Clear Calc 72.3 Estimated GFR POC Glucose Random Glucose Lactic Acid Lactic Acid F/U @ 2Hr Calcium Phosphorus Magnesium Total Bilirubin AST ALT Alkaline Phosphatase C-Reactive Protein Total Protein Albumin Beta-Hydroxybutyrate Urine Color Urine Appearance Urine pH Ur Specific [place] Urine Protein Urine Glucose (UA) Urine Ketones Urine Blood Urine Nitrite Ur Leukocyte Esterase Urine RBC Urine WBC Ur Squamous Epith Cells Urine Bacteria Hyaline Casts Blood Type Antibody Screen 09/14/23 09/14/23 09/14/23 13:31 13:31 13:31 WBC RBC Hgb Hct MCV MCH MCHC RDW Plt Count MPV Immature Gran % (Auto) Neut % (Auto) Lymph % (Auto) [place] % (Auto) Eos % (Auto) Baso % (Auto) Lymph # (Auto) [place] # (Auto) Eos # (Auto) Baso # (Auto) Abs Immat Gran (auto) Absolute Neuts (auto) Absolute Nucleated RBC Nucleated RBC % (auto) Neutrophils % (Manual) Band Neutrophils % Lymphocytes % (Manual) Monocytes % (Manual) Metamyelocytes % Myelocytes % Promyelocytes % Abs Neuts (Manual) Lymphocytes # (Manual) Monocytes # (Manual) Metamyelocytes # Myelocytes # Promyelocytes # Nucleated RBCs Toxic Vacuolation Platelet Estimate Plt Morphology Comment RBC Morphology [place] Cells ESR Hold Purple Top VBG pH VBG pCO2 VBG pO2 VBG HCO3 VBG O2 Saturation VBG Base Excess Sodium Potassium Chloride Carbon Dioxide Anion Gap BUN Creatinine Estim Creat Clear Calc Cancelled Estimated GFR 43 Cancelled POC Glucose Random Glucose 516 H* Cancelled Lactic Acid Lactic Acid F/U @ 2Hr 2.2 H* Calcium 10.1 Phosphorus Magnesium Total Bilirubin AST ALT Alkaline Phosphatase C-Reactive Protein Total Protein Albumin Beta-Hydroxybutyrate Urine Color Urine Appearance Urine pH Ur Specific Luther Urine Protein Urine Glucose (UA) Urine Ketones Urine Blood Urine Nitrite Ur Leukocyte Esterase Urine RBC Urine WBC Ur Squamous Epith Cells Urine Bacteria Hyaline Casts Blood Type Antibody Screen 09/14/23 09/14/23 09/14/23 13:31 13:31 13:31 WBC RBC Hgb Hct MCV MCH MCHC RDW Plt Count MPV Immature Gran % (Auto) Neut % (Auto) Lymph % (Auto) [place] % (Auto) Eos % (Auto) Baso % (Auto) Lymph # (Auto) [place] # (Auto) Eos # (Auto) Baso # (Auto) Abs Immat Gran (auto) Absolute Neuts (auto) Absolute Nucleated RBC Nucleated RBC % (auto) Neutrophils % (Manual) Band Neutrophils % Lymphocytes % (Manual) Monocytes % (Manual) Metamyelocytes % Myelocytes % Promyelocytes % Abs Neuts (Manual) Lymphocytes # (Manual) Monocytes # (Manual) Metamyelocytes # Myelocytes # Promyelocytes # Nucleated RBCs Toxic Vacuolation Platelet Estimate Plt Morphology Comment RBC Morphology [place] Cells ESR Hold Purple Top VBG pH VBG pCO2 VBG pO2 VBG HCO3 VBG O2 Saturation VBG Base Excess Sodium Potassium Chloride Carbon Dioxide Anion Gap BUN Creatinine Estim Creat Clear Calc Estimated GFR POC Glucose Random Glucose Lactic Acid Lactic Acid F/U @ 2Hr Calcium Cancelled Phosphorus 2.2 L Magnesium 2.5 Total Bilirubin 0.2 Cancelled AST 10 Cancelled ALT 16 Alkaline Phosphatase C-Reactive Protein Total Protein Albumin Beta-Hydroxybutyrate Urine Color Urine Appearance Urine pH Ur Specific Luther Urine Protein Urine Glucose (UA) Urine Ketones Urine Blood Urine Nitrite Ur Leukocyte Esterase Urine RBC Urine WBC Ur Squamous Epith Cells Urine Bacteria Hyaline Casts Blood Type Antibody Screen 09/14/23 09/14/23 09/14/23 13:31 13:31 13:31 WBC RBC Hgb Hct MCV MCH MCHC RDW Plt Count MPV Immature Gran % (Auto) Neut % (Auto) Lymph % (Auto) [place] % (Auto) Eos % (Auto) Baso % (Auto) Lymph # (Auto) [place] # (Auto) Eos # (Auto) Baso # (Auto) Abs Immat Gran (auto) Absolute Neuts (auto) Absolute Nucleated RBC Nucleated RBC % (auto) Neutrophils % (Manual) Band Neutrophils % Lymphocytes % (Manual) Monocytes % (Manual) Metamyelocytes % Myelocytes % Promyelocytes % Abs Neuts (Manual) Lymphocytes # (Manual) Monocytes # (Manual) Metamyelocytes # Myelocytes # Promyelocytes # Nucleated RBCs Toxic Vacuolation Platelet Estimate Plt Morphology Comment RBC Morphology [place] Cells ESR Hold Purple Top VBG pH VBG pCO2 VBG pO2 VBG HCO3 VBG O2 Saturation VBG Base Excess Sodium Potassium Chloride Carbon Dioxide Anion Gap BUN Creatinine Estim Creat Clear Calc Estimated GFR POC Glucose Random Glucose Lactic Acid Lactic Acid F/U @ 2Hr Calcium Phosphorus Magnesium Total Bilirubin AST ALT Cancelled Alkaline Phosphatase 130 H Cancelled C-Reactive Protein Total Protein 6.1 L Cancelled Albumin 2.3 L Beta-Hydroxybutyrate Urine Color Urine Appearance Urine pH Ur Specific [place] Urine Protein Urine Glucose (UA) Urine Ketones Urine Blood Urine Nitrite Ur Leukocyte Esterase Urine RBC Urine WBC Ur Squamous Epith Cells Urine Bacteria Hyaline Casts Blood Type Antibody Screen 09/14/23 09/14/23 13:31 13:35 WBC RBC Hgb Hct MCV MCH MCHC RDW Plt Count MPV Immature Gran % (Auto) Neut % (Auto) Lymph % (Auto) [place] % (Auto) Eos % (Auto) Baso % (Auto) Lymph # (Auto) [place] # (Auto) Eos # (Auto) Baso # (Auto) Abs Immat Gran (auto) Absolute Neuts (auto) Absolute Nucleated RBC Nucleated RBC % (auto) Neutrophils % (Manual) Band Neutrophils % Lymphocytes % (Manual) Monocytes % (Manual) Metamyelocytes % Myelocytes % Promyelocytes % Abs Neuts (Manual) Lymphocytes # (Manual) Monocytes # (Manual) Metamyelocytes # Myelocytes # Promyelocytes # Nucleated RBCs Toxic Vacuolation Platelet Estimate Plt Morphology Comment RBC Morphology [place] Cells ESR Hold Purple Top VBG pH 7.18 L* VBG pCO2 16 VBG pO2 76 VBG HCO3 6 L VBG O2 Saturation 91.0 VBG Base Excess -19.2 Sodium Potassium Chloride Carbon Dioxide Anion Gap BUN Creatinine Estim Creat Clear Calc Estimated GFR POC Glucose Random Glucose Lactic Acid Lactic Acid F/U @ 2Hr Calcium Phosphorus Magnesium Total Bilirubin AST ALT Alkaline Phosphatase C-Reactive Protein Total Protein Albumin Cancelled Beta-Hydroxybutyrate Urine Color Urine Appearance Urine pH Ur Specific [place] Urine Protein Urine Glucose (UA) Urine Ketones Urine Blood Urine Nitrite Ur Leukocyte Esterase Urine RBC Urine WBC Ur Squamous Epith Cells Urine Bacteria Hyaline Casts Blood Type A Positive Antibody Screen NEGATIVE Airway Mallampati Class: III TM Dist: <=3cm Neck ROM: Full Heart: OK Lungs: OK; SpO2 97% on room air Assessment and Plan Assessment Anesthesia Assessment: Anesthesia Plan Discussed and Chart Reviewed Final Anesthetic Review Family History of Problems with Anesthesia: No History of Problems with Anesthesia: No NPO: Yes ASA Class: IV and Emergency Final Preanesthetic Review: No Changes in Pt Med Stat, Meds/Allgs Chart Reviewed, Consent Obtained/Reviewed and Anes Risks/Benef Reviewed Patient Risk: High Procedure Risk: Intermediate Anesthetic Plan Anesthetic Plan: GA and Agree w/ Assess. and Plan Disposition: Inp. Admit - ICU
[2023-09-14 15:36] LABS: Reflex Lactate? 2 Y
[2023-09-14] MEDS: Midazolam HCl/PF 2 MG/2 ML VIAL 1 MG IVPUSH (15:40)
[2023-09-14 15:47] LABS: Venous Blood Gas Refer to POC result
[2023-09-14] MEDS: fentaNYL citrate/PF 100 MCG/2 ML VIAL 50 MCG IVPUSH (15:55)
[2023-09-14 16:46] LABS: Hematocrit 32.3 % (42.0-52.0); Hemoglobin 11.4 g/dl (14.0-18.0); Mean Corpuscular HGB Conc 35.3 g/dl (31.0-36.0); Mean Corpuscular Hemoglobin 28.6 pg (27.0-33.0); Mean Corpuscular Volume 81.2 fL (80.0-98.0); Mean Platelet Volume 9.1 fL (9.4-12.4); NRBC Pct Auto 0.2 /100WBC (0.0-0.2); Platelet Count 326 X10*3/uL (160-400); Red Blood Count 3.98 X10*6/uL (4.60-5.80); Red Cell Distribution Width 15.9 % (11.0-16.0)
[2023-09-14 16:50] LABS: WBC ABN SCTR FOR CBC 1; White Blood Count 24.8 X10*3/uL (4.8-10.8)
[2023-09-14 16:57] LABS: Calcium 9.5 mg/dL (8.4-10.2)
[2023-09-14 17:00] LABS: ~Lactic Acid-LAB USE ONLY 2.2 mmol/L (0.5-2.0)
[2023-09-14 17:04] LABS: Anion Gap 14 (12-20); Blood Urea Nitrogen 34 mg/dL (9-16); Calcium 9.4 mg/dL (8.4-10.2); Carbon Dioxide 16 mmol/L (22-29); Chloride 111 mmol/L (96-108); Creatinine Clr Calc Pharmacy 94.9; Estimated Glomerular Filt Rate 59; Glucose Random 323 mg/dL (60-115); Potassium 2.7 mmol/L (3.3-5.1); Sodium 138 mmol/L (135-145)
[2023-09-14 17:05] LABS: Magnesium 2.2 mg/dL (1.6-2.6); Phosphorus 0.9 mg/dL (2.7-4.5)
[2023-09-14 17:35] LABS: Band Neutrophils Percent 23 % (3-5); Lymphocytes Percent Manual 8 % (20-40); Metamyelocytes Percent 4 %; Monocytes Absolute Manual 0.7 X10*3/uL (0.1-1.2); Monocytes Percent Manual 3 % (2-11); Myelocytes Absolute 0.5 X10*/uL; Myelocytes Percent 2 %; Neutrophils Absolute Manual 20.6 X10*3/uL (2.0-8.3); Neutrophils Percent Manual 60 % (45-73); Nucleated Red Blood Cells 1 /100WBC (0-0)
[2023-09-14 17:36] LABS: Glucose, Whole Blood 270 mg/dL (60-115)
[2023-09-14 17:36] LABS: RBC Morphology NORMAL
[2023-09-14 17:37] LABS: Platelet Estimate NORMAL (NORMAL); Platelet Morphology Comment NORMAL
--- NOTE | 2023-09-14 18:11 | P.OP_ITS ---
Operative Note Operative Note Date of Service: 09/14/23 Narrative: Preop diagnosis: Necrotizing soft tissue infection, right medial thigh near the groin extending posteriorly to the buttock Postop diagnosis: The same Procedure: Excisional debridement of necrotizing soft tissue infection involving the right medial thigh near the groin extending posteriorly to the buttock proximally including full-thickness of the skin and thick subcutaneous fat to the fascia Surgeon: Michael Matthew MD Findings: Necrotizing soft tissue infection as described above involving the entire subcutaneous fat, with an area of 15 cm by 8 cm debrided but extending very deep throughout the entire subcutaneous layer and part of the fascia The patient is a 48-year-old male, who was a diabetic, admitted because of sepsis with note of sinuses an induration with discharge, foul smelling and soupy from the right groin. Overall clinical picture was consistent with necrotizing soft tissue infection. I had explained to him it would be best to proceed with debridement in the operating room. He understood the technique of the planned procedure as well as the risks, benefits, and alternatives. He was brought to the operating room. He was placed in lithotomy position under general anesthesia via endotracheal tube. A Conti catheter was already in place. The patient was receiving scheduled IV antibiotics from the ICU. The right groin and posterior thigh was prepped and draped in usual sterile fashion. There was note of a large area on open wound on the postero medial thigh with necrotic tissue. I used current may scissors to debrided this but this was noted to extend all around the area of the deep subcutaneous layer. I used the Gonzalez scissors so opened up the area by unroofing the entire skin. This exposed more nonviable tissue underneath. I had to remove this nonviable subcutaneous fat aggressively with Gonzalez scissors as well as with blunt dissection until was able to see a looking tissue. This entire area of necrotizing soft tissue infection involved more than 15 cm x 8 cm and extended all the way to the proximal thigh posteriorly and the distal buttock area. I controlled bleeders with ligation using Polysorb 2-0 ties. I also cauterized bleeding edges of the debridement site. I used the Pulsavac to heal up the entire cavity as this extended deep into the posterior thigh and buttock. I controlled all bleeders with electrocautery as well as with ties. Once h emostasis was confirmed, I proceeded to then apply packing using ice Kerlix rolls. Four Kerlix rolls were used into the cavity I covered the wound with ABDs. The procedure was then completed The patient tolerated the procedure well. The patient remains intubated on transfer back to the intensive care unit . Estimated blood loss was about 200 cc.
[2023-09-14 18:27] LABS: Glucose, Whole Blood 267 mg/dL (60-115)
[2023-09-14] MEDS: Norepinephrine Bitartrate/D5W 8 MG/250 ML PLAST..BAG 13.74 MG IV (18:34)
[2023-09-14 18:40] LABS: ABG Base Excess -12.4 mmol/L; ABG HCO3 15 mmol/L (22-26); ABG pCO2 39 mmHg (32-45); ABG pH 7.18 (7.35-7.45); ABG pO2 105 mmHg (83-108)
[2023-09-14 19:51] LABS: VBG Base Excess -10.1 mmol/L; VBG HCO3 15 mmol/L (22-26); VBG pCO2 31 mmHg; VBG pH 7.29 (7.32-7.43); VBG pO2 68 mmHg
[2023-09-14] MEDS: Albumin Human 25 % 100 ML IV ×2 (20:00→21:20)
[2023-09-14 20:13] LABS: Alanine Aminotransferase 11 U/L (0-40); Albumin Level 1.8 g/dL (3.5-5.0); Alkaline Phosphatase 110 U/L (39-117); Anion Gap 12 (12-20); Aspartate Amino Transferase 13 U/L (5-37); Bilirubin Total 0.2 mg/dL (0.0-1.0); Blood Urea Nitrogen 34 mg/dL (9-16); Calcium 9.1 mg/dL (8.4-10.2); Carbon Dioxide 16 mmol/L (22-29); Chloride 115 mmol/L (96-108); Estimated Glomerular Filt Rate 57; Glucose Random 268 mg/dL (60-115); Magnesium 2.2 mg/dL (1.6-2.6); Phosphorus 2.1 mg/dL (2.7-4.5); Potassium 2.5 mmol/L (3.3-5.1); Sodium 140 mmol/L (135-145); Total Protein 4.8 g/dL (6.5-8.0)
[2023-09-14] MEDS: Potassium Chloride/H20 40 MEQ/100 ML PIGGYBACK 100 MEQ IV (20:21)
--- NOTE | 2023-09-14 20:34 | PHA.MEDREC ---
Addendum entered by Brendon Walsh 09/15/23 12:31: Daughter of patient brought meds in and verified them. No changes to med rec made. Original Note: Pharmacy Consult ? Medication Reconciliation Pharmacy has completed the medication reconciliation using pharmacy claims. Couldn't talk to patient because he was in surgery then intubated. Spoke to mother Jassi but she could only say that he takes medications for diabetes, depression and anxiety . She said she'll bring in his med bottles tomorrow (09/15/23). His niece tried to call his daughter but she was at work. Notified Mulugeta Burns that med rec was done using pharmacy claims.
[2023-09-14] MEDS: Sodium Bicarbonate 8.4% 150 MEQ in Dextrose 5 % 850 ML 100 MEQ IV (20:57)
[2023-09-14 20:59] LABS: ABG Refer to POC result
[2023-09-14 21:05] LABS: Glucose, Whole Blood 296 mg/dL (60-115)
[2023-09-14] MEDS: Insulin Regular/NS 100 UNIT/100 ML PLAST..BAG IVCONT (21:10)
[2023-09-14] MEDS: propofoL 1,000 MG/100 ML VIAL 25.76 MG IVCONT (21:14)
[2023-09-14] MEDS: Tetanus Immune Globulin/PF 250 UNIT SYRINGE IM (21:21)
[2023-09-14] MEDS: Potassium Phosphate/NS 15 MMOL/250 ML PLAST..BAG 62.5 MMOL IV (21:33)
[2023-09-14] MEDS: Norepinephrine Bitartrate/D5W 8 MG/250 ML PLAST..BAG 137.35 MG IV ×2 (21:35→23:20)
[2023-09-14 22:15] LABS: Glucose, Whole Blood 350 mg/dL (60-115)
--- NOTE | 2023-09-14 22:17 | P.PNCC_ITS ---
Critical Care Event Note Summary Date of Service: 09/14/23 Code activated: Yes Narrative: This case had a high probability of a clinically significant, sudden, or life threatening deterioration of this patient's condition which required my full and direct attention, intervention and personal management. Critical Care Time (minutes): 90 Comment: Patient postop day 0. status post excisional debridement of necrotizing soft tissue infection involving the right medial thigh near the groin extending posteriorly to the proximal buttock. ?The area of debridement involve 15 x 8 cm extending into the hold subcutaneous layer and part of the fascia.? Estimated blood loss 200 cc.? The patient had received IV antibiotics prior to surgery. ?Patient was transferred to the ICU, intubated, on Levophed and propofol. SEPSIS EXAM DONE AT 720PM : Upon my initial evaluation, patient's blood pressure is 84/45, heart rate 99, respirations 20, mechanical ventilator with settings of AC 18/450/8/70% Overall the patient is sedated. Right groin, thigh and posterior buttock with a surgical dressing clean, dry, intact.? Left subclavian triple-lumen in place with clean, dry intact cardenas rroundings. Regular rate and rhythm no murmurs rubs gallops Diminished lung sounds bilaterally no wheezes rales rhonchi Abdomen is protuberant, soft and with positive bowel sounds. Passive range of motion upper extremities and left lower extremity at the major joints except the left knee showed no cogwheeling, no crepitus.? No stiffness.? There is no leg edema noted. 2+ pulses upper and lower extremities bilaterally with 2nd capillary refill bilaterally of the finger and toes upper and lower extremities respectively. Laboratories were reviewed. He did have a white count 24.8, H and H of 11.4 and 32.3, platelets 326.? There is 23% bandemia with toxic vacuolation. ABG shows pH of 7.18, pCO2 39, HC03 15, PO2 1 5. Repeat chemistries shows sodium 140, potassium 2.5, chloride 115, carbon dioxide 16, anion gap 12, BUN 34, creatinine 1.34 (has come down from 1.8, glucose 268.? Phosphorus 2.1 magnesium 2.2, albumin 1.8. REVISED ASSESMENT: Postop day 0.? Post necrotizing fasciitis debridement of tissue in the right groin, anterior, posterior thigh into the buttock Acute septic shock due to the above Hyperglycemia with resolved DKA Severe metabolic acidosis due to the above Hypokalemia due to transitional electrolyte shift into the cells Hypophosphatemia Hypoalbuminemia Resolving acute kidney injury Proteinuria and glucosuria likely due to diabetic nephropathy ? REVISED PLAN: At this point my concern with this patient is hypoperfusion, I have requested our nursing personnel to titrate up Levophed for goal map of 70, will start him on albumin, provide further electrolyte replacement with potassium chloride and potassium phosphate.? I will give him a single L of LR bolus followed by a sodium bicarbonate drip, given that this will be on D5 it will likely elevate his blood sugar therefore I will start him on a insulin drip. As his renal function has improved, I will maximize Zosyn to 4.5 g q.6 every 6 hours and will increase vancomycin to 10 milligrams/kilogram every 12 hours which ones his ITA is completely resolved he could easily have 20 milligrams/kilogram q.12 hours.? Monitor vanco troughs. ?Procedure is quite extensive and the patient seems to wake up every now and then I will add fentanyl drip.? We will continue to titrate his FiO2 slowly for a goal O2 sat above 94%.? Will recheck laboratories in the morning. For better monitoring of his hemodynamics I will place a a line, please see procedure note for details. REPEAT FOCUS SEPSIS EXAM DONE AT 1230AM ON 09/15/2023 : 128/46;90;18/ 98.2 F Sedated; no skin changed surgical dressing R groin and thigh intact Regular rate and rhythm no murmurs rubs gallops Diminished lung sounds bilaterally no wheezes rales rhonchi 2+ pulses upper and lower extremities bilaterally with 2nd capillary refill bilaterally of the finger and toes upper and lower extremities respectively. Patient improving, levophed titrating down. recheck labs in am, continue with current care Critical care time used for critical evaluation of this patient, diagnosis, treatment and coordination of care, review her records and documentation TOTAL CRITICAL CARE TIME? 90 MIN . discussion and coordination with consultants, completely separate from any procedures performed. . Patient's care was discussed in detail with Dr. De León.? He is aware of all the abo ve as well as the plan of care for this patient. . ?? ?
--- NOTE | 2023-09-14 22:19 | W.PM.CCHP ---
Procedures Date of Service Date of Service: 09/15/23 Arterial Line Arterial Line Comments: Jovanny test performed, radial and ulnar arteries compressed, 3 second capillary refill obtained after release of each artery at the time, showing full patency of both arteries. Consent: Emergent-no informed consent obtained Sterile Technique Used: Yes Time out performed: Yes Size (Gauge): 20 Technique used: direct puncture technique Post-Procedure: line sutured into place and dry sterile dressing placed Patient tolerated procedure: well and no complications Complications: none and other Site: left and radial
[2023-09-14] MEDS: Albumin Human 25 % 100 ML 133.33 ML IV ×2 (22:29→23:47)
[2023-09-14 22:30] LABS: Venous Blood Gas Refer to POC result
[2023-09-14 23:02] LABS: Glucose, Whole Blood 371 mg/dL (60-115)
[2023-09-14] MEDS: fentaNYL citrate/NS 1,000 MCG/100 ML PLAST..BAG 5 MCG IVCONT (23:04)
[2023-09-14] MEDS: vancomycin HCL 1,500 MG in 0.9 % Sodium Chloride 500 ML 333.33 MG IV (23:22)
[2023-09-15] VITALS (54 sets, daily range): BP systolic 104–137; BP diastolic 32–52; PULSE 84–120; RESP 18–31; TEMP 34.8–38.7; O2SAT 89–98; BMI 51.3
[2023-09-15] MEDS: propofoL 1,000 MG/100 ML VIAL 34.34 MG IVCONT ×4 (00:01→16:30)
[2023-09-15 00:10] LABS: Glucose, Whole Blood 351 mg/dL (60-115)
[2023-09-15] MEDS: Albumin Human 25 % 100 ML 133.33 ML IV ×2 (01:05→02:07)
[2023-09-15] MEDS: 0.9 % Sodium Chloride Flush 3 ML SYRINGE IVFLUSH ×3 (01:06→23:10)
[2023-09-15 01:12] LABS: Glucose, Whole Blood 300 mg/dL (60-115)
[2023-09-15 01:27] LABS: Anion Gap 12 (12-20); Blood Urea Nitrogen 32 mg/dL (9-16); Calcium 9.2 mg/dL (8.4-10.2); Carbon Dioxide 17 mmol/L (22-29); Chloride 114 mmol/L (96-108); Creatinine Clr Calc Pharmacy 95.6; Estimated Glomerular Filt Rate 60; Glucose Random 326 mg/dL (60-115); Magnesium 2.1 mg/dL (1.6-2.6); Phosphorus 1.9 mg/dL (2.7-4.5); Potassium 2.4 mmol/L (3.3-5.1); Sodium 141 mmol/L (135-145)
[2023-09-15] MEDS: Norepinephrine Bitartrate/D5W 8 MG/250 ML PLAST..BAG 96.15 MG IV (01:40)
[2023-09-15] MEDS: Chlorhexidine Gluc Oral Rinse 15 ML MOUTHWASH BUCCAL ×4 (01:43→20:19)
[2023-09-15] MEDS: Sodium Bicarbonate 8.4% 50 MEQ/50 ML SYRINGE IVPUSH (01:45)
[2023-09-15] MEDS: propofoL 1,000 MG/100 ML VIAL 42.93 MG IVCONT ×7 (01:53→22:57)
[2023-09-15 02:11] LABS: Glucose, Whole Blood 292 mg/dL (60-115)
[2023-09-15] MEDS: Potassium Chloride/H20 40 MEQ/100 ML PIGGYBACK 100 MEQ IV (02:16)
[2023-09-15] MEDS: Potassium Phosphate/NS 15 MMOL/250 ML PLAST..BAG 62.5 MMOL IV ×4 (02:18→18:36)
[2023-09-15] MEDS: Potassium Chloride Packet 20 MEQ PACKET 40 MEQ PO ×2 (02:39→05:41)
--- NOTE | 2023-09-15 03:27 | PC.NURSE ---
Upon initial assessment at 1900, patient intubated and sedated on propofol (see MAR), RASS -3. Fentanyl gtt added per PA for pain control, and titrated per MAR. NSR/ST on tele, HR 90s-low 100s with occasional ectopic beats. SBP 80s, MAP <65, levo ordered and titrated per MAR. 1L LR IV bolus, 6 bags of 100mL IV albumin given, see MAR. A-line placed to left radial artery by PA, appropriate waveform. ETT #7.5, 24cm @ lip, on ACVC settings, FiO2 titrated down as tolerated. Moderate amount of thick, persaud, in-line secretions. Occasional breath stacking, sedation titrated accordingly, see MAR. OGT placed per PA order, placement confirmed by PCXR, used for med administration. Insulin gtt ordered and titrated per MAR, POC checks Q1HR. Multiple electrolyte replacements: 1 amp bicarb, bicarb gtt, KCL 40mEq IV x2, KCL 40 mEq PO x1, Kphos 15 mmol x3 IV. Conti catheter in place, draining approx 200-300 mL/hr of clear yellow urine. Pt skin largely warm, moist and intact, surgical site to right groin/posterior thigh/right buttock draining dark, sanguineous, foul-smelling output, reinforced PRN. Core esophageal probe placed, Tmax 99.5. Family updated at bedside at beginning of shift, explained pt status/plan of care. Bed locked in lowest possible position, bed alarm on, repositioned Q2HR with pillows and wedges.
[2023-09-15] MEDS: Norepinephrine Bitartrate/D5W 8 MG/250 ML PLAST..BAG 109.88 MG IV (03:56)
[2023-09-15 04:17] LABS: Glucose, Whole Blood 289 mg/dL (60-115)
[2023-09-15 04:17] LABS: Glucose, Whole Blood 306 mg/dL (60-115)
[2023-09-15] MEDS: Clindamycin Phosphate/D5W 600 MG/50 ML PIGGYBACK 100 MG IV ×3 (04:29→20:09)
[2023-09-15 04:33] LABS: ABG Base Excess -5.4 mmol/L; ABG HCO3 19 mmol/L (22-26); ABG pCO2 33 mmHg (32-45); ABG pH 7.36 (7.35-7.45); ABG pO2 84 mmHg (83-108)
[2023-09-15 04:39] LABS: ABG Refer to POC result
[2023-09-15 04:45] LABS: Hematocrit 22.7 % (42.0-52.0); Hemoglobin 8.1 g/dl (14.0-18.0); Mean Corpuscular HGB Conc 35.7 g/dl (31.0-36.0); Mean Corpuscular Hemoglobin 29.2 pg (27.0-33.0); Mean Corpuscular Volume 81.9 fL (80.0-98.0); NRBC Pct Auto 0.5 /100WBC (0.0-0.2); Platelet Count 283 X10*3/uL (160-400); Red Blood Count 2.77 X10*6/uL (4.60-5.80); Red Cell Distribution Width 16.5 % (11.0-16.0); WBC ABN SCTR FOR CBC 1
[2023-09-15 04:49] LABS: White Blood Count 22.7 X10*3/uL (4.8-10.8)
[2023-09-15 05:07] LABS: Band Neutrophils Percent 34 % (3-5); Lymphocytes Absolute Manual 0.7 X10*3/uL (1.2-4.9); Lymphocytes Percent Manual 3 % (20-40); Metamyelocytes Absolute 1.8 X10*3/uL; Metamyelocytes Percent 8 %; Monocytes Absolute Manual 0.7 X10*3/uL (0.1-1.2); Monocytes Percent Manual 3 % (2-11); Myelocytes Absolute 1.4 X10*/uL; Myelocytes Percent 6 %; Neutrophils Absolute Manual 18.2 X10*3/uL (2.0-8.3); Neutrophils Percent Manual 46 % (45-73)
[2023-09-15 05:08] LABS: Platelet Estimate NORMAL (NORMAL); Platelet Morphology Comment NORMAL; RBC Morphology NORMAL; Toxic Granulation PRESENT
[2023-09-15 05:09] LABS: Glucose, Whole Blood 290 mg/dL (60-115)
[2023-09-15 05:14] LABS: Anion Gap 14 (12-20); Blood Urea Nitrogen 29 mg/dL (9-16); Calcium 9.6 mg/dL (8.4-10.2); Carbon Dioxide 18 mmol/L (22-29); Chloride 114 mmol/L (96-108); Creatinine Clr Calc Pharmacy 107.2; Estimated Glomerular Filt Rate > 60; Glucose Random 300 mg/dL (60-115); Magnesium 2.1 mg/dL (1.6-2.6); Phosphorus 1.6 mg/dL (2.7-4.5); Potassium 2.8 mmol/L (3.3-5.1); Sodium 143 mmol/L (135-145)
[2023-09-15] MEDS: fentaNYL citrate/NS 1,000 MCG/100 ML PLAST..BAG 15 MCG IVCONT ×4 (05:28→22:56)
[2023-09-15] MEDS: Potassium Chloride/H20 40 MEQ/100 ML PIGGYBACK 50 MEQ IV (05:31)
[2023-09-15] MEDS: Insulin Regular/NS 100 UNIT/100 ML PLAST..BAG 9 UNIT IVCONT (05:48)
[2023-09-15 05:59] LABS: Glucose, Whole Blood 282 mg/dL (60-115)
[2023-09-15] MEDS: Norepinephrine Bitartrate/D5W 8 MG/250 ML PLAST..BAG 98.89 MG IV (06:19)
[2023-09-15 07:10] LABS: Glucose, Whole Blood 256 mg/dL (60-115)
--- NOTE | 2023-09-15 07:38 | P.PNCC_ITS ---
Subjective Subjective Date of Service: 09/15/23 Interval History: interval development of shock, likely septic; s/p debridement, now intubated, sedated Critical Care Time (minutes): 60 Physical Exam 2 Vital Signs: Vital Signs: Last Vital Signs Temp 100.4 F 09/15/23 07:00 Pulse 100 09/15/23 07:00 Resp 21 H 09/15/23 07:00 BP 116/39 L 09/15/23 07:00 Pulse Ox 96 09/15/23 07:00 O2 Del Method Mechanical Ventil ation 09/15/23 07:00 O2 Flow Rate 2.0 09/14/23 12:13 FiO2 30 09/15/23 07:14 BMI result Body Mass Index 51.3 Const: Other: appreciable morbid obesity; intubated, appears agitated on ventilator General: no acute distress HEENT: Head: Yes normal to inspection, Yes normocephalic and Yes atraumatic Eyes: General: appearance normal, both eyes and all related structures Neck: Neck: Yes normal visual inspection, Yes full ROM, Yes trachea midline and Yes supple Chest: Chest palpation & inspection: normal inspection of the chest Resp: Other: no appreciable rales, rhonchi, wheezing Cardio: Rate: tachycardic Rhythm: regular rhythm GI: Inspection: Yes normal to inspection, No Abdominal wall edema and No distended Palpation (GI): Soft to palpation, not firm, nontender, no guarding and not rigid : Other: groin w/ multiple overlying bandages; some appreciable overlying warmth Neuro: General: tone normal and moves all extremities Extrem: General: Yes normal to inspection, Yes full ROM, Yes capillary refill normal and Yes no clubbing, cyanosis or edema Psych: Other: appears agitated on ventilator Objective Data Labs 09/15/23 04:22 09/15/23 04:22 Labs: Laboratory Results - last 24 hr 09/14/23 09/14/23 09/14/23 10:40 10:41 10:56 WBC 37.8 H* RBC 4.59 L Hgb 13.3 L Hct 38.5 L MCV 83.9 MCH 29.0 MCHC 34.5 RDW 16.9 H Plt Count 446 H MPV 9.5 Immature Gran % (Auto) Cancelled Neut % (Auto) Cancelled Lymph % (Auto) Cancelled [place] % (Auto) Cancelled Eos % (Auto) Cancelled Baso % (Auto) Cancelled Lymph # (Auto) Cancelled [place] # (Auto) Cancelled Eos # (Auto) Cancelled Baso # (Auto) Cancelled Abs Immat Gran (auto) Cancelled Absolute Neuts (auto) Cancelled Absolute Nucleated RBC 0.110 H Nucleated RBC % (auto) 0.3 H Neutrophils % (Manual) 76 H Band Neutrophils % 11 H Lymphocytes % (Manual) 2 L Monocytes % (Manual) 3 Metamyelocytes % 4 Myelocytes % 2 Promyelocytes % 2 Abs Neuts (Manual) 32.9 H Lymphocytes # (Manual) 0.8 L Monocytes # (Manual) 1.1 Metamyelocytes # 1.5 Myelocytes # 0.8 Promyelocytes # 0.8 Nucleated RBCs 1 H Toxic Granulation Toxic Vacuolation Platelet Estimate NORMAL Plt Morphology Comment NORMAL RBC Morphology NOTED [place] Cells 3+ (>5) ESR 54 H Hold Purple Top O2 Saturation ABG pH at Pt Temp ABG pH (Temp Correct) ABG pCO2 at Pt Temp ABG pCO2 (Temp Corrct ABG pO2 at Pt Temp ABG pO2 (Temp Correct ABG HCO3 ABG Base Excess (Actual) VBG pH VBG pCO2 VBG pO2 VBG HCO3 VBG O2 Saturation VBG Base Excess Sodium 133 L Potassium 2.5 L* D Chloride 104 Carbon Dioxide 9 L* D Anion Gap 23 H BUN 38 H Creatinine 1.80 H Estim Creat Clear Calc 69.5 Estimated GFR 41 POC Glucose Random Glucose 641 H* Lactic Acid 2.6 H* Lactic Acid F/U @ 2Hr Lactic Acid F/U @ 4Hr Calcium 10.2 D Phosphorus Magnesium 2.5 Total Bilirubin 0.2 AST 10 ALT 15 Alkaline Phosphatase 139 H C-Reactive Protein 29.26 H Total Protein 6.2 L Albumin 2.4 L Beta-Hydroxybutyrate 7.59 H Urine Color Urine Appearance Urine pH Ur Specific [place] Urine Protein Urine Glucose (UA) Urine Ketones Urine Blood Urine Nitrite Ur Leukocyte Esterase Urine RBC Urine WBC Ur Squamous Epith Cells Urine Bacteria Hyaline Casts Blood Type Antibody Screen 09/14/23 09/14/23 09/14/23 11:03 11:06 11:49 WBC RBC Hgb Hct MCV MCH MCHC RDW Plt Count MPV Immature Gran % (Auto) Neut % (Auto) Lymph % (Auto) [place] % (Auto) Eos % (Auto) Baso % (Auto) Lymph # (Auto) [place] # (Auto) Eos # (Auto) Baso # (Auto) Abs Immat Gran (auto) Absolute Neuts (auto) Absolute Nucleated RBC Nucleated RBC % (auto) Neutrophils % (Manual) Band Neutrophils % Lymphocytes % (Manual) Monocytes % (Manual) Metamyelocytes % Myelocytes % Promyelocytes % Abs Neuts (Manual) Lymphocytes # (Manual) Monocytes # (Manual) Metamyelocytes # Myelocytes # Promyelocytes # Nucleated RBCs Toxic Granulation Toxic Vacuolation Platelet Estimate Plt Morphology Comment RBC Morphology [place] Cells ESR Hold Purple Top O2 Saturation ABG pH at Pt Temp ABG pH (Temp Correct) ABG pCO2 at Pt Temp ABG pCO2 (Temp Corrct ABG pO2 at Pt Temp ABG pO2 (Temp Correct ABG HCO3 ABG Base Excess (Actual) VBG pH 7.17 L* VBG pCO2 18 VBG pO2 147 VBG HCO3 7 L VBG O2 Saturation 98.0 VBG Base Excess -19.0 Sodium Potassium Chloride Carbon Dioxide Anion Gap BUN Creatinine Estim Creat Clear Calc Estimated GFR POC Glucose 590 H* Random Glucose Lactic Acid Lactic Acid F/U @ 2Hr Lactic Acid F/U @ 4Hr Calcium Phosphorus Magnesium Total Bilirubin AST ALT Alkaline Phosphatase C-Reactive Protein Total Protein Albumin Beta-Hydroxybutyrate Urine Color Yellow Urine Appearance Cloudy Urine pH 6.0 Ur Specific [place] 1.025 Urine Protein 30 (1+) H Urine Glucose (UA) >=1000 H Urine Ketones 40 Urine Blood Trace H Urine Nitrite Negative Ur Leukocyte Esterase Negative Urine RBC 0-2 Urine WBC 0-5 Ur Squamous Epith Cells 3-5 Urine Bacteria None Seen Hyaline Casts 6-10 Blood Type Antibody Screen 09/14/23 09/14/23 09/14/23 12:39 13:31 13:31 WBC 24.2 H Cancelled RBC 4.70 Hgb Hct MCV MCH MCHC RDW Plt Count MPV Immature Gran % (Auto) Neut % (Auto) Lymph % (Auto) [place] % (Auto) Eos % (Auto) Baso % (Auto) Lymph # (Auto) [place] # (Auto) Eos # (Auto) Baso # (Auto) Abs Immat Gran (auto) Absolute Neuts (auto) Absolute Nucleated RBC Nucleated RBC % (auto) Neutrophils % (Manual) Band Neutrophils % Lymphocytes % (Manual) Monocytes % (Manual) Metamyelocytes % Myelocytes % Promyelocytes % Abs Neuts (Manual) Lymphocytes # (Manual) Monocytes # (Manual) Metamyelocytes # Myelocytes # Promyelocytes # Nucleated RBCs Toxic Granulation Toxic Vacuolation Platelet Estimate Plt Morphology Comment RBC Morphology [place] Cells ESR Hold Purple Top O2 Saturation ABG pH at Pt Temp ABG pH (Temp Correct) ABG pCO2 at Pt Temp ABG pCO2 (Temp Corrct ABG pO2 at Pt Temp ABG pO2 (Temp Correct ABG HCO3 ABG Base Excess (Actual) VBG pH VBG pCO2 VBG pO2 VBG HCO3 VBG O2 Saturation VBG Base Excess Sodium Potassium Chloride Carbon Dioxide Anion Gap BUN Creatinine Estim Creat Clear Calc Estimated GFR POC Glucose 550 H* Random Glucose Lactic Acid Lactic Acid F/U @ 2Hr Lactic Acid F/U @ 4Hr Calcium Phosphorus Magnesium Total Bilirubin AST ALT Alkaline Phosphatase C-Reactive Protein Total Protein Albumin Beta-Hydroxybutyrate Urine Color Urine Appearance Urine pH Ur Specific [place] Urine Protein Urine Glucose (UA) Urine Ketones Urine Blood Urine Nitrite Ur Leukocyte Esterase Urine RBC Urine WBC Ur Squamous Epith Cells Urine Bacteria Hyaline Casts Blood Type Antibody Screen 09/14/23 09/14/23 09/14/23 13:31 13:31 13:31 WBC RBC Cancelled Hgb 13.5 L Cancelled Hct 39.9 L Cancelled MCV 84.9 MCH MCHC RDW Plt Count MPV Immature Gran % (Auto) Neut % (Auto) Lymph % (Auto) [place] % (Auto) Eos % (Auto) Baso % (Auto) Lymph # (Auto) [place] # (Auto) Eos # (Auto) Baso # (Auto) Abs Immat Gran (auto) Absolute Neuts (auto) Absolute Nucleated RBC Nucleated RBC % (auto) Neutrophils % (Manual) Band Neutrophils % Lymphocytes % (Manual) Monocytes % (Manual) Metamyelocytes % Myelocytes % Promyelocytes % Abs Neuts (Manual) Lymphocytes # (Manual) Monocytes # (Manual) Metamyelocytes # Myelocytes # Promyelocytes # Nucleated RBCs Toxic Granulation Toxic Vacuolation Platelet Estimate Plt Morphology Comment RBC Morphology [place] Cells ESR Hold Purple Top O2 Saturation ABG pH at Pt Temp ABG pH (Temp Correct) ABG pCO2 at Pt Temp ABG pCO2 (Temp Corrct ABG pO2 at Pt Temp ABG pO2 (Temp Correct ABG HCO3 ABG Base Excess (Actual) VBG pH VBG pCO2 VBG pO2 VBG HCO3 VBG O2 Saturation VBG Base Excess Sodium Potassium Chloride Carbon Dioxide Anion Gap BUN Creatinine Estim Creat Clear Calc Estimated GFR POC Glucose Random Glucose Lactic Acid Lactic Acid F/U @ 2Hr Lactic Acid F/U @ 4Hr Calcium Phosphorus Magnesium Total Bilirubin AST ALT Alkaline Phosphatase C-Reactive Protein Total Protein Albumin Beta-Hydroxybutyrate Urine Color Urine Appearance Urine pH Ur Specific [place] Urine Protein Urine Glucose (UA) Urine Ketones Urine Blood Urine Nitrite Ur Leukocyte Esterase Urine RBC Urine WBC Ur Squamous Epith Cells Urine Bacteria Hyaline Casts Blood Type Antibody Screen 09/14/23 09/14/23 09/14/23 13:31 13:31 13:31 WBC RBC Hgb Hct MCV Cancelled MCH 28.7 Cancelled MCHC 33.8 Cancelled RDW 16.6 H Plt Count MPV Immature Gran % (Auto) Neut % (Auto) Lymph % (Auto) [place] % (Auto) Eos % (Auto) Baso % (Auto) Lymph # (Auto) [place] # (Auto) Eos # (Auto) Baso # (Auto) Abs Immat Gran (auto) Absolute Neuts (auto) Absolute Nucleated RBC Nucleated RBC % (auto) Neutrophils % (Manual) Band Neutrophils % Lymphocytes % (Manual) Monocytes % (Manual) Metamyelocytes % Myelocytes % Promyelocytes % Abs Neuts (Manual) Lymphocytes # (Manual) Monocytes # (Manual) Metamyelocytes # Myelocytes # Promyelocytes # Nucleated RBCs Toxic Granulation Toxic Vacuolation Platelet Estimate Plt Morphology Comment RBC Morphology [place] Cells ESR Hold Purple Top O2 Saturation ABG pH at Pt Temp ABG pH (Temp Correct) ABG pCO2 at Pt Temp ABG pCO2 (Temp Corrct ABG pO2 at Pt Temp ABG pO2 (Temp Correct ABG HCO3 ABG Base Excess (Actual) VBG pH VBG pCO2 VBG pO2 VBG HCO3 VBG O2 Saturation VBG Base Excess Sodium Potassium Chloride Carbon Dioxide Anion Gap BUN Creatinine Estim Creat Clear Calc Estimated GFR POC Glucose Random Glucose Lactic Acid Lactic Acid F/U @ 2Hr Lactic Acid F/U @ 4Hr Calcium Phosphorus Magnesium Total Bilirubin AST ALT Alkaline Phosphatase C-Reactive Protein Total Protein Albumin Beta-Hydroxybutyrate Urine Color Urine Appearance Urine pH Ur Specific [place] Urine Protein Urine Glucose (UA) Urine Ketones Urine Blood Urine Nitrite Ur Leukocyte Esterase Urine RBC Urine WBC Ur Squamous Epith Cells Urine Bacteria Hyaline Casts Blood Type Antibody Screen 09/14/23 09/14/23 09/14/23 13:31 13:31 13:31 WBC RBC Hgb Hct MCV MCH MCHC RDW Cancelled Plt Count 340 Cancelled MPV 9.0 L Cancelled Immature Gran % (Auto) Cancelled Neut % (Auto) Lymph % (Auto) [place] % (Auto) Eos % (Auto) Baso % (Auto) Lymph # (Auto) [place] # (Auto) Eos # (Auto) Baso # (Auto) Abs Immat Gran (auto) Absolute Neuts (auto) Absolute Nucleated RBC Nucleated RBC % (auto) Neutrophils % (Manual) Band Neutrophils % Lymphocytes % (Manual) Monocytes % (Manual) Metamyelocytes % Myelocytes % Promyelocytes % Abs Neuts (Manual) Lymphocytes # (Manual) Monocytes # (Manual) Metamyelocytes # Myelocytes # Promyelocytes # Nucleated RBCs Toxic Granulation Toxic Vacuolation Platelet Estimate Plt Morphology Comment RBC Morphology [place] Cells ESR Hold Purple Top O2 Saturation ABG pH at Pt Temp ABG pH (Temp Correct) ABG pCO2 at Pt Temp ABG pCO2 (Temp Corrct ABG pO2 at Pt Temp ABG pO2 (Temp Correct ABG HCO3 ABG Base Excess (Actual) VBG pH VBG pCO2 VBG pO2 VBG HCO3 VBG O2 Saturation VBG Base Excess Sodium Potassium Chloride Carbon Dioxide Anion Gap BUN Creatinine Estim Creat Clear Calc Estimated GFR POC Glucose Random Glucose Lactic Acid Lactic Acid F/U @ 2Hr Lactic Acid F/U @ 4Hr Calcium Phosphorus Magnesium Total Bilirubin AST ALT Alkaline Phosphatase C-Reactive Protein Total Protein Albumin Beta-Hydroxybutyrate Urine Color Urine Appearance Urine pH Ur Specific [place] Urine Protein Urine Glucose (UA) Urine Ketones Urine Blood Urine Nitrite Ur Leukocyte Esterase Urine RBC Urine WBC Ur Squamous Epith Cells Urine Bacteria Hyaline Casts Blood Type Antibody Screen 09/14/23 09/14/23 09/14/23 13:31 13:31 13:31 WBC RBC Hgb Hct MCV MCH MCHC RDW Plt Count MPV Immature Gran % (Auto) Cancelled Neut % (Auto) Cancelled Cancelled Lymph % (Auto) Cancelled Cancelled [place] % (Auto) Cancelled Eos % (Auto) Baso % (Auto) Lymph # (Auto) [place] # (Auto) Eos # (Auto) Baso # (Auto) Abs Immat Gran (auto) Absolute Neuts (auto) Absolute Nucleated RBC Nucleated RBC % (auto) Neutrophils % (Manual) Band Neutrophils % Lymphocytes % (Manual) Monocytes % (Manual) Metamyelocytes % Myelocytes % Promyelocytes % Abs Neuts (Manual) Lymphocytes # (Manual) Monocytes # (Manual) Metamyelocytes # Myelocytes # Promyelocytes # Nucleated RBCs Toxic Granulation Toxic Vacuolation Platelet Estimate Plt Morphology Comment RBC Morphology [place] Cells ESR Hold Purple Top O2 Saturation ABG pH at Pt Temp ABG pH (Temp Correct) ABG pCO2 at Pt Temp ABG pCO2 (Temp Corrct ABG pO2 at Pt Temp ABG pO2 (Temp Correct ABG HCO3 ABG Base Excess (Actual) VBG pH VBG pCO2 VBG pO2 VBG HCO3 VBG O2 Saturation VBG Base Excess Sodium Potassium Chloride Carbon Dioxide Anion Gap BUN Creatinine Estim Creat Clear Calc Estimated GFR POC Glucose Random Glucose Lactic Acid Lactic Acid F/U @ 2Hr Lactic Acid F/U @ 4Hr Calcium Phosphorus Magnesium Total Bilirubin AST ALT Alkaline Phosphatase C-Reactive Protein Total Protein Albumin Beta-Hydroxybutyrate Urine Color Urine Appearance Urine pH Ur Specific [place] Urine Protein Urine Glucose (UA) Urine Ketones Urine Blood Urine Nitrite Ur Leukocyte Esterase Urine RBC Urine WBC Ur Squamous Epith Cells Urine Bacteria Hyaline Casts Blood Type Antibody Screen 09/14/23 09/14/23 09/14/23 13:31 13:31 13:31 WBC RBC Hgb Hct MCV MCH MCHC RDW Plt Count MPV Immature Gran % (Auto) Neut % (Auto) Lymph % (Auto) [place] % (Auto) Cancelled Eos % (Auto) Cancelled Cancelled Baso % (Auto) Cancelled Cancelled Lymph # (Auto) Cancelled [place] # (Auto) Eos # (Auto) Baso # (Auto) Abs Immat Gran (auto) Absolute Neuts (auto) Absolute Nucleated RBC Nucleated RBC % (auto) Neutrophils % (Manual) Band Neutrophils % Lymphocytes % (Manual) Monocytes % (Manual) Metamyelocytes % Myelocytes % Promyelocytes % Abs Neuts (Manual) Lymphocytes # (Manual) Monocytes # (Manual) Metamyelocytes # Myelocytes # Promyelocytes # Nucleated RBCs Toxic Granulation Toxic Vacuolation Platelet Estimate Plt Morphology Comment RBC Morphology [place] Cells ESR Hold Purple Top O2 Saturation ABG pH at Pt Temp ABG pH (Temp Correct) ABG pCO2 at Pt Temp ABG pCO2 (Temp Corrct ABG pO2 at Pt Temp ABG pO2 (Temp Correct ABG HCO3 ABG Base Excess (Actual) VBG pH VBG pCO2 VBG pO2 VBG HCO3 VBG O2 Saturation VBG Base Excess Sodium Potassium Chloride Carbon Dioxide Anion Gap BUN Creatinine Estim Creat Clear Calc Estimated GFR POC Glucose Random Glucose Lactic Acid Lactic Acid F/U @ 2Hr Lactic Acid F/U @ 4Hr Calcium Phosphorus Magnesium Total Bilirubin AST ALT Alkaline Phosphatase C-Reactive Protein Total Protein Albumin Beta-Hydroxybutyrate Urine Color Urine Appearance Urine pH Ur Specific [place] Urine Protein Urine Glucose (UA) Urine Ketones Urine Blood Urine Nitrite Ur Leukocyte Esterase Urine RBC Urine WBC Ur Squamous Epith Cells Urine Bacteria Hyaline Casts Blood Type Antibody Screen 09/14/23 09/14/23 09/14/23 13:31 13:31 13:31 WBC RBC Hgb Hct MCV MCH MCHC RDW Plt Count MPV Immature Gran % (Auto) Neut % (Auto) Lymph % (Auto) [place] % (Auto) Eos % (Auto) Baso % (Auto) Lymph # (Auto) Cancelled [place] # (Auto) Cancelled Cancelled Eos # (Auto) Cancelled Cancelled Baso # (Auto) Cancelled Abs Immat Gran (auto) Absolute Neuts (auto) Absolute Nucleated RBC Nucleated RBC % (auto) Neutrophils % (Manual) Band Neutrophils % Lymphocytes % (Manual) Monocytes % (Manual) Metamyelocytes % Myelocytes % Promyelocytes % Abs Neuts (Manual) Lymphocytes # (Manual) Monocytes # (Manual) Metamyelocytes # Myelocytes # Promyelocytes # Nucleated RBCs Toxic Granulation Toxic Vacuolation Platelet Estimate Plt Morphology Comment RBC Morphology [place] Cells ESR Hold Purple Top O2 Saturation ABG pH at Pt Temp ABG pH (Temp Correct) ABG pCO2 at Pt Temp ABG pCO2 (Temp Corrct ABG pO2 at Pt Temp ABG pO2 (Temp Correct ABG HCO3 ABG Base Excess (Actual) VBG pH VBG pCO2 VBG pO2 VBG HCO3 VBG O2 Saturation VBG Base Excess Sodium Potassium Chloride Carbon Dioxide Anion Gap BUN Creatinine Estim Creat Clear Calc Estimated GFR POC Glucose Random Glucose Lactic Acid Lactic Acid F/U @ 2Hr Lactic Acid F/U @ 4Hr Calcium Phosphorus Magnesium Total Bilirubin AST ALT Alkaline Phosphatase C-Reactive Protein Total Protein Albumin Beta-Hydroxybutyrate Urine Color Urine Appearance Urine pH Ur Specific [place] Urine Protein Urine Glucose (UA) Urine Ketones Urine Blood Urine Nitrite Ur Leukocyte Esterase Urine RBC Urine WBC Ur Squamous Epith Cells Urine Bacteria Hyaline Casts Blood Type Antibody Screen 09/14/23 09/14/23 09/14/23 13:31 13:31 13:31 WBC RBC Hgb Hct MCV MCH MCHC RDW Plt Count MPV Immature Gran % (Auto) Neut % (Auto) Lymph % (Auto) [place] % (Auto) Eos % (Auto) Baso % (Auto) Lymph # (Auto) [place] # (Auto) Eos # (Auto) Baso # (Auto) Cancelled Abs Immat Gran (auto) Cancelled Cancelled Absolute Neuts (auto) Cancelled Cancelled Absolute Nucleated RBC 0.050 H Nucleated RBC % (auto) Neutrophils % (Manual) Band Neutrophils % Lymphocytes % (Manual) Monocytes % (Manual) Metamyelocytes % Myelocytes % Promyelocytes % Abs Neuts (Manual) Lymphocytes # (Manual) Monocytes # (Manual) Metamyelocytes # Myelocytes # Promyelocytes # Nucleated RBCs Toxic Granulation Toxic Vacuolation Platelet Estimate Plt Morphology Comment RBC Morphology [place] Cells ESR Hold Purple Top O2 Saturation ABG pH at Pt Temp ABG pH (Temp Correct) ABG pCO2 at Pt Temp ABG pCO2 (Temp Corrct ABG pO2 at Pt Temp ABG pO2 (Temp Correct ABG HCO3 ABG Base Excess (Actual) VBG pH VBG pCO2 VBG pO2 VBG HCO3 VBG O2 Saturation VBG Base Excess Sodium Potassium Chloride Carbon Dioxide Anion Gap BUN Creatinine Estim Creat Clear Calc Estimated GFR POC Glucose Random Glucose Lactic Acid Lactic Acid F/U @ 2Hr Lactic Acid F/U @ 4Hr Calcium Phosphorus Magnesium Total Bilirubin AST ALT Alkaline Phosphatase C-Reactive Protein Total Protein Albumin Beta-Hydroxybutyrate Urine Color Urine Appearance Urine pH Ur Specific [place] Urine Protein Urine Glucose (UA) Urine Ketones Urine Blood Urine Nitrite Ur Leukocyte Esterase Urine RBC Urine WBC Ur Squamous Epith Cells Urine Bacteria Hyaline Casts Blood Type Antibody Screen 09/14/23 09/14/23 09/14/23 13:31 13:31 13:31 WBC RBC Hgb Hct MCV MCH MCHC RDW Plt Count MPV Immature Gran % (Auto) Neut % (Auto) Lymph % (Auto) [place] % (Auto) Eos % (Auto) Baso % (Auto) Lymph # (Auto) [place] # (Auto) Eos # (Auto) Baso # (Auto) Abs Immat Gran (auto) Absolute Neuts (auto) Absolute Nucleated RBC Cancelled Nucleated RBC % (auto) 0.2 Cancelled Neutrophils % (Manual) 66 Band Neutrophils % 17 H Lymphocytes % (Manual) 6 L Monocytes % (Manual) 4 Metamyelocytes % 5 Myelocytes % 1 Promyelocytes % 1 Abs Neuts (Manual) 20.1 H Lymphocytes # (Manual) 1.5 Monocytes # (Manual) 1.0 Metamyelocytes # 1.2 Myelocytes # 0.2 Promyelocytes # 0.2 Nucleated RBCs 1 H Toxic Granulation Toxic Vacuolation PRESENT Platelet Estimate NORMAL Plt Morphology Comment NORMAL RBC Morphology NORMAL [place] Cells ESR Hold Purple Top SEE NOTE O2 Saturation ABG pH at Pt Temp ABG pH (Temp Correct) ABG pCO2 at Pt Temp ABG pCO2 (Temp Corrct ABG pO2 at Pt Temp ABG pO2 (Temp Correct ABG HCO3 ABG Base Excess (Actual) VBG pH VBG pCO2 VBG pO2 VBG HCO3 VBG O2 Saturation VBG Base Excess Sodium 134 L Cancelled Potassium 2.4 L* Chloride Carbon Dioxide Anion Gap BUN Creatinine Estim Creat Clear Calc Estimated GFR POC Glucose Random Glucose Lactic Acid Lactic Acid F/U @ 2Hr Lactic Acid F/U @ 4Hr Calcium Phosphorus Magnesium Total Bilirubin AST ALT Alkaline Phosphatase C-Reactive Protein Total Protein Albumin Beta-Hydroxybutyrate Urine Color Urine Appearance Urine pH Ur Specific [place] Urine Protein Urine Glucose (UA) Urine Ketones Urine Blood Urine Nitrite Ur Leukocyte Esterase Urine RBC Urine WBC Ur Squamous Epith Cells Urine Bacteria Hyaline Casts Blood Type Antibody Screen 09/14/23 09/14/23 09/14/23 13:31 13:31 13:31 WBC RBC Hgb Hct MCV MCH MCHC RDW Plt Count MPV Immature Gran % (Auto) Neut % (Auto) Lymph % (Auto) [place] % (Auto) Eos % (Auto) Baso % (Auto) Lymph # (Auto) [place] # (Auto) Eos # (Auto) Baso # (Auto) Abs Immat Gran (auto) Absolute Neuts (auto) Absolute Nucleated RBC Nucleated RBC % (auto) Neutrophils % (Manual) Band Neutrophils % Lymphocytes % (Manual) Monocytes % (Manual) Metamyelocytes % Myelocytes % Promyelocytes % Abs Neuts (Manual) Lymphocytes # (Manual) Monocytes # (Manual) Metamyelocytes # Myelocytes # Promyelocytes # Nucleated RBCs Toxic Granulation Toxic Vacuolation Platelet Estimate Plt Morphology Comment RBC Morphology [place] Cells ESR Hold Purple Top O2 Saturation ABG pH at Pt Temp ABG pH (Temp Correct) ABG pCO2 at Pt Temp ABG pCO2 (Temp Corrct ABG pO2 at Pt Temp ABG pO2 (Temp Correct ABG HCO3 ABG Base Excess (Actual) VBG pH VBG pCO2 VBG pO2 VBG HCO3 VBG O2 Saturation VBG Base Excess Sodium Potassium Cancelled Chloride 108 Cancelled Carbon Dioxide 8 L* Cancelled Anion Gap 20 BUN Creatinine Estim Creat Clear Calc Estimated GFR POC Glucose Random Glucose Lactic Acid Lactic Acid F/U @ 2Hr Lactic Acid F/U @ 4Hr Calcium Phosphorus Magnesium Total Bilirubin AST ALT Alkaline Phosphatase C-Reactive Protein Total Protein Albumin Beta-Hydroxybutyrate Urine Color Urine Appearance Urine pH Ur Specific [place] Urine Protein Urine Glucose (UA) Urine Ketones Urine Blood Urine Nitrite Ur Leukocyte Esterase Urine RBC Urine WBC Ur Squamous Epith Cells Urine Bacteria Hyaline Casts Blood Type Antibody Screen 09/14/23 09/14/23 09/14/23 13:31 13:31 13:31 WBC RBC Hgb Hct MCV MCH MCHC RDW Plt Count MPV Immature Gran % (Auto) Neut % (Auto) Lymph % (Auto) [place] % (Auto) Eos % (Auto) Baso % (Auto) Lymph # (Auto) [place] # (Auto) Eos # (Auto) Baso # (Auto) Abs Immat Gran (auto) Absolute Neuts (auto) Absolute Nucleated RBC Nucleated RBC % (auto) Neutrophils % (Manual) Band Neutrophils % Lymphocytes % (Manual) Monocytes % (Manual) Metamyelocytes % Myelocytes % Promyelocytes % Abs Neuts (Manual) Lymphocytes # (Manual) Monocytes # (Manual) Metamyelocytes # Myelocytes # Promyelocytes # Nucleated RBCs Toxic Granulation Toxic Vacuolation Platelet Estimate Plt Morphology Comment RBC Morphology [place] Cells ESR Hold Purple Top O2 Saturation ABG pH at Pt Temp ABG pH (Temp Correct) ABG pCO2 at Pt Temp ABG pCO2 (Temp Corrct ABG pO2 at Pt Temp ABG pO2 (Temp Correct ABG HCO3 ABG Base Excess (Actual) VBG pH VBG pCO2 VBG pO2 VBG HCO3 VBG O2 Saturation VBG Base Excess Sodium Potassium Chloride Carbon Dioxide Anion Gap Cancelled BUN 38 H Cancelled Creatinine 1.73 H Cancelled Estim Creat Clear Calc 72.3 Estimated GFR POC Glucose Random Glucose Lactic Acid Lactic Acid F/U @ 2Hr Lactic Acid F/U @ 4Hr Calcium Phosphorus Magnesium Total Bilirubin AST ALT Alkaline Phosphatase C-Reactive Protein Total Protein Albumin Beta-Hydroxybutyrate Urine Color Urine Appearance Urine pH Ur Specific [place] Urine Protein Urine Glucose (UA) Urine Ketones Urine Blood Urine Nitrite Ur Leukocyte Esterase Urine RBC Urine WBC Ur Squamous Epith Cells Urine Bacteria Hyaline Casts Blood Type Antibody Screen 09/14/23 09/14/23 09/14/23 13:31 13:31 13:31 WBC RBC Hgb Hct MCV MCH MCHC RDW Plt Count MPV Immature Gran % (Auto) Neut % (Auto) Lymph % (Auto) [place] % (Auto) Eos % (Auto) Baso % (Auto) Lymph # (Auto) [place] # (Auto) Eos # (Auto) Baso # (Auto) Abs Immat Gran (auto) Absolute Neuts (auto) Absolute Nucleated RBC Nucleated RBC % (auto) Neutrophils % (Manual) Band Neutrophils % Lymphocytes % (Manual) Monocytes % (Manual) Metamyelocytes % Myelocytes % Promyelocytes % Abs Neuts (Manual) Lymphocytes # (Manual) Monocytes # (Manual) Metamyelocytes # Myelocytes # Promyelocytes # Nucleated RBCs Toxic Granulation Toxic Vacuolation Platelet Estimate Plt Morphology Comment RBC Morphology [place] Cells ESR Hold Purple Top O2 Saturation ABG pH at Pt Temp ABG pH (Temp Correct) ABG pCO2 at Pt Temp ABG pCO2 (Temp Corrct ABG pO2 at Pt Temp ABG pO2 (Temp Correct ABG HCO3 ABG Base Excess (Actual) VBG pH VBG pCO2 VBG pO2 VBG HCO3 VBG O2 Saturation VBG Base Excess Sodium Potassium Chloride Carbon Dioxide Anion Gap BUN Creatinine Estim Creat Clear Calc Cancelled Estimated GFR 43 Cancelled POC Glucose Random Glucose 516 H* Cancelled Lactic Acid Lactic Acid F/U @ 2Hr 2.2 H* Lactic Acid F/U @ 4Hr Calcium 10.1 Phosphorus Magnesium Total Bilirubin AST ALT Alkaline Phosphatase C-Reactive Protein Total Protein Albumin Beta-Hydroxybutyrate Urine Color Urine Appearance Urine pH Ur Specific [place] Urine Protein Urine Glucose (UA) Urine Ketones Urine Blood Urine Nitrite Ur Leukocyte Esterase Urine RBC Urine WBC Ur Squamous Epith Cells Urine Bacteria Hyaline Casts Blood Type Antibody Screen 09/14/23 09/14/23 09/14/23 13:31 13:31 13:31 WBC RBC Hgb Hct MCV MCH MCHC RDW Plt Count MPV Immature Gran % (Auto) Neut % (Auto) Lymph % (Auto) [place] % (Auto) Eos % (Auto) Baso % (Auto) Lymph # (Auto) [place] # (Auto) Eos # (Auto) Baso # (Auto) Abs Immat Gran (auto) Absolute Neuts (auto) Absolute Nucleated RBC Nucleated RBC % (auto) Neutrophils % (Manual) Band Neutrophils % Lymphocytes % (Manual) Monocytes % (Manual) Metamyelocytes % Myelocytes % Promyelocytes % Abs Neuts (Manual) Lymphocytes # (Manual) Monocytes # (Manual) Metamyelocytes # Myelocytes # Promyelocytes # Nucleated RBCs Toxic Granulation Toxic Vacuolation Platelet Estimate Plt Morphology Comment RBC Morphology [place] Cells ESR Hold Purple Top O2 Saturation ABG pH at Pt Temp ABG pH (Temp Correct) ABG pCO2 at Pt Temp ABG pCO2 (Temp Corrct ABG pO2 at Pt Temp ABG pO2 (Temp Correct ABG HCO3 ABG Base Excess (Actual) VBG pH VBG pCO2 VBG pO2 VBG HCO3 VBG O2 Saturation VBG Base Excess Sodium Potassium Chloride Carbon Dioxide Anion Gap BUN Creatinine Estim Creat Clear Calc Estimated GFR POC Glucose Random Glucose Lactic Acid Lactic Acid F/U @ 2Hr Lactic Acid F/U @ 4Hr Calcium Cancelled Phosphorus 2.2 L Magnesium 2.5 Total Bilirubin 0.2 Cancelled AST 10 Cancelled ALT 16 Alkaline Phosphatase C-Reactive Protein Total Protein Albumin Beta-Hydroxybutyrate Urine Color Urine Appearance Urine pH Ur Specific [place] Urine Protein Urine Glucose (UA) Urine Ketones Urine Blood Urine Nitrite Ur Leukocyte Esterase Urine RBC Urine WBC Ur Squamous Epith Cells Urine Bacteria Hyaline Casts Blood Type Antibody Screen 09/14/23 09/14/23 09/14/23 13:31 13:31 13:31 WBC RBC Hgb Hct MCV MCH MCHC RDW Plt Count MPV Immature Gran % (Auto) Neut % (Auto) Lymph % (Auto) [place] % (Auto) Eos % (Auto) Baso % (Auto) Lymph # (Auto) [place] # (Auto) Eos # (Auto) Baso # (Auto) Abs Immat Gran (auto) Absolute Neuts (auto) Absolute Nucleated RBC Nucleated RBC % (auto) Neutrophils % (Manual) Band Neutrophils % Lymphocytes % (Manual) Monocytes % (Manual) Metamyelocytes % Myelocytes % Promyelocytes % Abs Neuts (Manual) Lymphocytes # (Manual) Monocytes # (Manual) Metamyelocytes # Myelocytes # Promyelocytes # Nucleated RBCs Toxic Granulation Toxic Vacuolation Platelet Estimate Plt Morphology Comment RBC Morphology [place] Cells ESR Hold Purple Top O2 Saturation ABG pH at Pt Temp ABG pH (Temp Correct) ABG pCO2 at Pt Temp ABG pCO2 (Temp Corrct ABG pO2 at Pt Temp ABG pO2 (Temp Correct ABG HCO3 ABG Base Excess (Actual) VBG pH VBG pCO2 VBG pO2 VBG HCO3 VBG O2 Saturation VBG Base Excess Sodium Potassium Chloride Carbon Dioxide Anion Gap BUN Creatinine Estim Creat Clear Calc Estimated GFR POC Glucose Random Glucose Lactic Acid Lactic Acid F/U @ 2Hr Lactic Acid F/U @ 4Hr Calcium Phosphorus Magnesium Total Bilirubin AST ALT Cancelled Alkaline Phosphatase 130 H Cancelled C-Reactive Protein Total Protein 6.1 L Cancelled Albumin 2.3 L Beta-Hydroxybutyrate Urine Color Urine Appearance Urine pH Ur Specific [place] Urine Protein Urine Glucose (UA) Urine Ketones Urine Blood Urine Nitrite Ur Leukocyte Esterase Urine RBC Urine WBC Ur Squamous Epith Cells Urine Bacteria Hyaline Casts Blood Type Antibody Screen 09/14/23 09/14/23 09/14/23 13:31 13:35 16:36 WBC 24.8 H RBC 3.98 L Hgb 11.4 L Hct 32.3 L MCV 81.2 MCH 28.6 MCHC 35.3 RDW 15.9 Plt Count 326 MPV 9.1 L Immature Gran % (Auto) Cancelled Neut % (Auto) Cancelled Lymph % (Auto) Cancelled [place] % (Auto) Cancelled Eos % (Auto) Cancelled Baso % (Auto) Cancelled Lymph # (Auto) Cancelled [place] # (Auto) Cancelled Eos # (Auto) Cancelled Baso # (Auto) Cancelled Abs Immat Gran (auto) Cancelled Absolute Neuts (auto) Cancelled Absolute Nucleated RBC 0.050 H Nucleated RBC % (auto) 0.2 Neutrophils % (Manual) 60 Band Neutrophils % 23 H Lymphocytes % (Manual) 8 L Monocytes % (Manual) 3 Metamyelocytes % 4 Myelocytes % 2 Promyelocytes % Abs Neuts (Manual) 20.6 H Lymphocytes # (Manual) 2.0 Monocytes # (Manual) 0.7 Metamyelocytes # 1.0 Myelocytes # 0.5 Promyelocytes # Nucleated RBCs 1 H Toxic Granulation Toxic Vacuolation Platelet Estimate NORMAL Plt Morphology Comment NORMAL RBC Morphology NORMAL [place] Cells ESR Hold Purple Top O2 Saturation ABG pH at Pt Temp ABG pH (Temp Correct) ABG pCO2 at Pt Temp ABG pCO2 (Temp Corrct ABG pO2 at Pt Temp ABG pO2 (Temp Correct ABG HCO3 ABG Base Excess (Actual) VBG pH 7.18 L* VBG pCO2 16 VBG pO2 76 VBG HCO3 6 L VBG O2 Saturation 91.0 VBG Base Excess -19.2 Sodium 138 Potassium 2.7 L* Chloride 111 H Carbon Dioxide 16 L Anion Gap 14 BUN 34 H Creatinine 1.30 Estim Creat Clear Calc 94.9 Estimated GFR 59 POC Glucose Random Glucose 323 H Lactic Acid Lactic Acid F/U @ 2Hr Lactic Acid F/U @ 4Hr Calcium 9.4 D Phosphorus Magnesium Total Bilirubin AST ALT Alkaline Phosphatase C-Reactive Protein Total Protein Albumin Cancelled Beta-Hydroxybutyrate Urine Color Urine Appearance Urine pH Ur Specific [place] Urine Protein Urine Glucose (UA) Urine Ketones Urine Blood Urine Nitrite Ur Leukocyte Esterase Urine RBC Urine WBC Ur Squamous Epith Cells Urine Bacteria Hyaline Casts Blood Type A Positive Antibody Screen NEGATIVE 09/14/23 09/14/23 09/14/23 16:36 16:37 17:31 WBC RBC Hgb Hct MCV MCH MCHC RDW Plt Count MPV Immature Gran % (Auto) Neut % (Auto) Lymph % (Auto) [place] % (Auto) Eos % (Auto) Baso % (Auto) Lymph # (Auto) [place] # (Auto) Eos # (Auto) Baso # (Auto) Abs Immat Gran (auto) Absolute Neuts (auto) Absolute Nucleated RBC Nucleated RBC % (auto) Neutrophils % (Manual) Band Neutrophils % Lymphocytes % (Manual) Monocytes % (Manual) Metamyelocytes % Myelocytes % Promyelocytes % Abs Neuts (Manual) Lymphocytes # (Manual) Monocytes # (Manual) Metamyelocytes # Myelocytes # Promyelocytes # Nucleated RBCs Toxic Granulation Toxic Vacuolation Platelet Estimate Plt Morphology Comment RBC Morphology [place] Cells ESR Hold Purple Top O2 Saturation ABG pH at Pt Temp ABG pH (Temp Correct) ABG pCO2 at Pt Temp ABG pCO2 (Temp Corrct ABG pO2 at Pt Temp ABG pO2 (Temp Correct ABG HCO3 ABG Base Excess (Actual) VBG pH VBG pCO2 VBG pO2 VBG HCO3 VBG O2 Saturation VBG Base Excess Sodium Potassium Chloride Carbon Dioxide Anion Gap BUN Creatinine Estim Creat Clear Calc Estimated GFR POC Glucose 270 H Random Glucose Lactic Acid Lactic Acid F/U @ 2Hr Lactic Acid F/U @ 4Hr 2.2 H* Calcium 9.5 Phosphorus 0.9 L* Magnesium 2.2 Total Bilirubin AST ALT Alkaline Phosphatase C-Reactive Protein Total Protein Albumin Beta-Hydroxybutyrate Urine Color Urine Appearance Urine pH Ur Specific [place] Urine Protein Urine Glucose (UA) Urine Ketones Urine Blood Urine Nitrite Ur Leukocyte Esterase Urine RBC Urine WBC Ur Squamous Epith Cells Urine Bacteria Hyaline Casts Blood Type Antibody Screen 09/14/23 09/14/23 09/14/23 18:24 18:31 19:39 WBC RBC Hgb Hct MCV MCH MCHC RDW Plt Count MPV Immature Gran % (Auto) Neut % (Auto) Lymph % (Auto) [place] % (Auto) Eos % (Auto) Baso % (Auto) Lymph # (Auto) [place] # (Auto) Eos # (Auto) Baso # (Auto) Abs Immat Gran (auto) Absolute Neuts (auto) Absolute Nucleated RBC Nucleated RBC % (auto) Neutrophils % (Manual) Band Neutrophils % Lymphocytes % (Manual) Monocytes % (Manual) Metamyelocytes % Myelocytes % Promyelocytes % Abs Neuts (Manual) Lymphocytes # (Manual) Monocytes # (Manual) Metamyelocytes # Myelocytes # Promyelocytes # Nucleated RBCs Toxic Granulation Toxic Vacuolation Platelet Estimate Plt Morphology Comment RBC Morphology [place] Cells ESR Hold Purple Top O2 Saturation 94.0 ABG pH at Pt Temp 7.18 L* ABG pH (Temp Correct) ABG pCO2 at Pt Temp 39 ABG pCO2 (Temp Corrct ABG pO2 at Pt Temp 105 ABG pO2 (Temp Correct ABG HCO3 15 L ABG Base Excess (Actual) -12.4 VBG pH VBG pCO2 VBG pO2 VBG HCO3 VBG O2 Saturation VBG Base Excess Sodium 140 Potassium 2.5 L* Chloride 115 H Carbon Dioxide 16 L Anion Gap 12 BUN 34 H Creatinine 1.34 Estim Creat Clear Calc 92.0 Estimated GFR 57 POC Glucose 267 H Random Glucose 268 H Lactic Acid Lactic Acid F/U @ 2Hr Lactic Acid F/U @ 4Hr Calcium 9.1 Phosphorus 2.1 L Magnesium 2.2 Total Bilirubin 0.2 AST 13 ALT 11 Alkaline Phosphatase 110 C-Reactive Protein Total Protein 4.8 L Albumin 1.8 L Beta-Hydroxybutyrate Urine Color Urine Appearance Urine pH Ur Specific [place] Urine Protein Urine Glucose (UA) Urine Ketones Urine Blood Urine Nitrite Ur Leukocyte Esterase Urine RBC Urine WBC Ur Squamous Epith Cells Urine Bacteria Hyaline Casts Blood Type Antibody Screen 09/14/23 09/14/23 09/14/23 19:42 21:01 22:11 WBC RBC Hgb Hct MCV MCH MCHC RDW Plt Count MPV Immature Gran % (Auto) Neut % (Auto) Lymph % (Auto) [place] % (Auto) Eos % (Auto) Baso % (Auto) Lymph # (Auto) [place] # (Auto) Eos # (Auto) Baso # (Auto) Abs Immat Gran (auto) Absolute Neuts (auto) Absolute Nucleated RBC Nucleated RBC % (auto) Neutrophils % (Manual) Band Neutrophils % Lymphocytes % (Manual) Monocytes % (Manual) Metamyelocytes % Myelocytes % Promyelocytes % Abs Neuts (Manual) Lymphocytes # (Manual) Monocytes # (Manual) Metamyelocytes # Myelocytes # Promyelocytes # Nucleated RBCs Toxic Granulation Toxic Vacuolation Platelet Estimate Plt Morphology Comment RBC Morphology [place] Cells ESR Hold Purple Top O2 Saturation ABG pH at Pt Temp ABG pH (Temp Correct) ABG pCO2 at Pt Temp ABG pCO2 (Temp Corrct ABG pO2 at Pt Temp ABG pO2 (Temp Correct ABG HCO3 ABG Base Excess (Actual) VBG pH 7.29 L VBG pCO2 31 VBG pO2 68 VBG HCO3 15 L VBG O2 Saturation 89.0 VBG Base Excess -10.1 Sodium Potassium Chloride Carbon Dioxide Anion Gap BUN Creatinine Estim Creat Clear Calc Estimated GFR POC Glucose 296 H 350 H* Random Glucose Lactic Acid Lactic Acid F/U @ 2Hr Lactic Acid F/U @ 4Hr Calcium Phosphorus Magnesium Total Bilirubin AST ALT Alkaline Phosphatase C-Reactive Protein Total Protein Albumin Beta-Hydroxybutyrate Urine Color Urine Appearance Urine pH Ur Specific [place] Urine Protein Urine Glucose (UA) Urine Ketones Urine Blood Urine Nitrite Ur Leukocyte Esterase Urine RBC Urine WBC Ur Squamous Epith Cells Urine Bacteria Hyaline Casts Blood Type Antibody Screen 09/14/23 09/15/23 09/15/23 22:58 00:06 00:56 WBC RBC Hgb Hct MCV MCH MCHC RDW Plt Count MPV Immature Gran % (Auto) Neut % (Auto) Lymph % (Auto) [place] % (Auto) Eos % (Auto) Baso % (Auto) Lymph # (Auto) [place] # (Auto) Eos # (Auto) Baso # (Auto) Abs Immat Gran (auto) Absolute Neuts (auto) Absolute Nucleated RBC Nucleated RBC % (auto) Neutrophils % (Manual) Band Neutrophils % Lymphocytes % (Manual) Monocytes % (Manual) Metamyelocytes % Myelocytes % Promyelocytes % Abs Neuts (Manual) Lymphocytes # (Manual) Monocytes # (Manual) Metamyelocytes # Myelocytes # Promyelocytes # Nucleated RBCs Toxic Granulation Toxic Vacuolation Platelet Estimate Plt Morphology Comment RBC Morphology [place] Cells ESR Hold Purple Top O2 Saturation ABG pH at Pt Temp ABG pH (Temp Correct) ABG pCO2 at Pt Temp ABG pCO2 (Temp Corrct ABG pO2 at Pt Temp ABG pO2 (Temp Correct ABG HCO3 ABG Base Excess (Actual) VBG pH VBG pCO2 VBG pO2 VBG HCO3 VBG O2 Saturation VBG Base Excess Sodium 141 Potassium 2.4 L* Chloride 114 H Carbon Dioxide 17 L Anion Gap 12 BUN 32 H Creatinine 1.29 Estim Creat Clear Calc 95.6 Estimated GFR 60 POC Glucose 371 H* 351 H* Random Glucose 326 H Lactic Acid Lactic Acid F/U @ 2Hr Lactic Acid F/U @ 4Hr Calcium 9.2 Phosphorus 1.9 L Magnesium 2.1 Total Bilirubin AST ALT Alkaline Phosphatase C-Reactive Protein Total Protein Albumin Beta-Hydroxybutyrate Urine Color Urine Appearance Urine pH Ur Specific [place] Urine Protein Urine Glucose (UA) Urine Ketones Urine Blood Urine Nitrite Ur Leukocyte Esterase Urine RBC Urine WBC Ur Squamous Epith Cells Urine Bacteria Hyaline Casts Blood Type Antibody Screen 09/15/23 09/15/23 09/15/23 01:08 02:06 03:00 WBC RBC Hgb Hct MCV MCH MCHC RDW Plt Count MPV Immature Gran % (Auto) Neut % (Auto) Lymph % (Auto) [place] % (Auto) Eos % (Auto) Baso % (Auto) Lymph # (Auto) [place] # (Auto) Eos # (Auto) Baso # (Auto) Abs Immat Gran (auto) Absolute Neuts (auto) Absolute Nucleated RBC Nucleated RBC % (auto) Neutrophils % (Manual) Band Neutrophils % Lymphocytes % (Manual) Monocytes % (Manual) Metamyelocytes % Myelocytes % Promyelocytes % Abs Neuts (Manual) Lymphocytes # (Manual) Monocytes # (Manual) Metamyelocytes # Myelocytes # Promyelocytes # Nucleated RBCs Toxic Granulation Toxic Vacuolation Platelet Estimate Plt Morphology Comment RBC Morphology [place] Cells ESR Hold Purple Top O2 Saturation ABG pH at Pt Temp ABG pH (Temp Correct) ABG pCO2 at Pt Temp ABG pCO2 (Temp Corrct ABG pO2 at Pt Temp ABG pO2 (Temp Correct ABG HCO3 ABG Base Excess (Actual) VBG pH VBG pCO2 VBG pO2 VBG HCO3 VBG O2 Saturation VBG Base Excess Sodium Potassium Chloride Carbon Dioxide Anion Gap BUN Creatinine Estim Creat Clear Calc Estimated GFR POC Glucose 300 H 292 H 306 H Random Glucose Lactic Acid Lactic Acid F/U @ 2Hr Lactic Acid F/U @ 4Hr Calcium Phosphorus Magnesium Total Bilirubin AST ALT Alkaline Phosphatase C-Reactive Protein Total Protein Albumin Beta-Hydroxybutyrate Urine Color Urine Appearance Urine pH Ur Specific [place] Urine Protein Urine Glucose (UA) Urine Ketones Urine Blood Urine Nitrite Ur Leukocyte Esterase Urine RBC Urine WBC Ur Squamous Epith Cells Urine Bacteria Hyaline Casts Blood Type Antibody Screen 09/15/23 09/15/23 09/15/23 04:11 04:22 04:23 WBC 22.7 H RBC 2.77 L D Hgb 8.1 L D Hct 22.7 L D MCV 81.9 MCH 29.2 MCHC 35.7 RDW 16.5 H Plt Count 283 MPV 9.0 L Immature Gran % (Auto) Cancelled Neut % (Auto) Cancelled Lymph % (Auto) Cancelled [place] % (Auto) Cancelled Eos % (Auto) Cancelled Baso % (Auto) Cancelled Lymph # (Auto) Cancelled [place] # (Auto) Cancelled Eos # (Auto) Cancelled Baso # (Auto) Cancelled Abs Immat Gran (auto) Cancelled Absolute Neuts (auto) Cancelled Absolute Nucleated RBC 0.110 H Nucleated RBC % (auto) 0.5 H Neutrophils % (Manual) 46 Band Neutrophils % 34 H Lymphocytes % (Manual) 3 L Monocytes % (Manual) 3 Metamyelocytes % 8 Myelocytes % 6 Promyelocytes % Abs Neuts (Manual) 18.2 H Lymphocytes # (Manual) 0.7 L Monocytes # (Manual) 0.7 Metamyelocytes # 1.8 Myelocytes # 1.4 Promyelocytes # Nucleated RBCs Toxic Granulation PRESENT Toxic Vacuolation Platelet Estimate NORMAL Plt Morphology Comment NORMAL RBC Morphology NORMAL [place] Cells ESR Hold Purple Top O2 Saturation Cancelled ABG pH at Pt Temp ABG pH (Temp Correct) ABG pCO2 at Pt Temp ABG pCO2 (Temp Corrct ABG pO2 at Pt Temp ABG pO2 (Temp Correct ABG HCO3 ABG Base Excess (Actual) VBG pH VBG pCO2 VBG pO2 VBG HCO3 VBG O2 Saturation VBG Base Excess Sodium 143 Potassium 2.8 L* Chloride 114 H Carbon Dioxide 18 L Anion Gap 14 BUN 29 H Creatinine 1.15 Estim Creat Clear Calc 107.2 Estimated GFR > 60 POC Glucose 289 H Random Glucose 300 H Lactic Acid Lactic Acid F/U @ 2Hr Lactic Acid F/U @ 4Hr Calcium 9.6 Phosphorus 1.6 L Magnesium 2.1 Total Bilirubin AST ALT Alkaline Phosphatase C-Reactive Protein Total Protein Albumin Beta-Hydroxybutyrate Urine Color Urine Appearance Urine pH Ur Specific [place] Urine Protein Urine Glucose (UA) Urine Ketones Urine Blood Urine Nitrite Ur Leukocyte Esterase Urine RBC Urine WBC Ur Squamous Epith Cells Urine Bacteria Hyaline Casts Blood Type Antibody Screen 09/15/23 09/15/23 09/15/23 04:23 04:23 04:23 WBC RBC Hgb Hct MCV MCH MCHC RDW Plt Count MPV Immature Gran % (Auto) Neut % (Auto) Lymph % (Auto) [place] % (Auto) Eos % (Auto) Baso % (Auto) Lymph # (Auto) [place] # (Auto) Eos # (Auto) Baso # (Auto) Abs Immat Gran (auto) Absolute Neuts (auto) Absolute Nucleated RBC Nucleated RBC % (auto) Neutrophils % (Manual) Band Neutrophils % Lymphocytes % (Manual) Monocytes % (Manual) Metamyelocytes % Myelocytes % Promyelocytes % Abs Neuts (Manual) Lymphocytes # (Manual) Monocytes # (Manual) Metamyelocytes # Myelocytes # Promyelocytes # Nucleated RBCs Toxic Granulation Toxic Vacuolation Platelet Estimate Plt Morphology Comment RBC Morphology [place] Cells ESR Hold Purple Top O2 Saturation 94.0 ABG pH at Pt Temp Cancelled 7.36 ABG pH (Temp Correct) Cancelled ABG pCO2 at Pt Temp Cancelled 33 ABG pCO2 (Temp Corrct Cancelled ABG pO2 at Pt Temp Cancelled ABG pO2 (Temp Correct ABG HCO3 ABG Base Excess (Actual) VBG pH VBG pCO2 VBG pO2 VBG HCO3 VBG O2 Saturation VBG Base Excess Sodium Potassium Chloride Carbon Dioxide Anion Gap BUN Creatinine Estim Creat Clear Calc Estimated GFR POC Glucose Random Glucose Lactic Acid Lactic Acid F/U @ 2Hr Lactic Acid F/U @ 4Hr Calcium Phosphorus Magnesium Total Bilirubin AST ALT Alkaline Phosphatase C-Reactive Protein Total Protein Albumin Beta-Hydroxybutyrate Urine Color Urine Appearance Urine pH Ur Specific [place] Urine Protein Urine Glucose (UA) Urine Ketones Urine Blood Urine Nitrite Ur Leukocyte Esterase Urine RBC Urine WBC Ur Squamous Epith Cells Urine Bacteria Hyaline Casts Blood Type Antibody Screen 09/15/23 09/15/23 09/15/23 04:23 04:23 04:23 WBC RBC Hgb Hct MCV MCH MCHC RDW Plt Count MPV Immature Gran % (Auto) Neut % (Auto) Lymph % (Auto) [place] % (Auto) Eos % (Auto) Baso % (Auto) Lymph # (Auto) [place] # (Auto) Eos # (Auto) Baso # (Auto) Abs Immat Gran (auto) Absolute Neuts (auto) Absolute Nucleated RBC Nucleated RBC % (auto) Neutrophils % (Manual) Band Neutrophils % Lymphocytes % (Manual) Monocytes % (Manual) Metamyelocytes % Myelocytes % Promyelocytes % Abs Neuts (Manual) Lymphocytes # (Manual) Monocytes # (Manual) Metamyelocytes # Myelocytes # Promyelocytes # Nucleated RBCs Toxic Granulation Toxic Vacuolation Platelet Estimate Plt Morphology Comment RBC Morphology [place] Cells ESR Hold Purple Top O2 Saturation ABG pH at Pt Temp ABG pH (Temp Correct) ABG pCO2 at Pt Temp ABG pCO2 (Temp Corrct ABG pO2 at Pt Temp 84 ABG pO2 (Temp Correct Cancelled ABG HCO3 Cancelled 19 L ABG Base Excess (Actual) Cancelled -5.4 VBG pH VBG pCO2 VBG pO2 VBG HCO3 VBG O2 Saturation VBG Base Excess Sodium Potassium Chloride Carbon Dioxide Anion Gap BUN Creatinine Estim Creat Clear Calc Estimated GFR POC Glucose Random Glucose Lactic Acid Lactic Acid F/U @ 2Hr Lactic Acid F/U @ 4Hr Calcium Phosphorus Magnesium Total Bilirubin AST ALT Alkaline Phosphatase C-Reactive Protein Total Protein Albumin Beta-Hydroxybutyrate Urine Color Urine Appearance Urine pH Ur Specific [place] Urine Protein Urine Glucose (UA) Urine Ketones Urine Blood Urine Nitrite Ur Leukocyte Esterase Urine RBC Urine WBC Ur Squamous Epith Cells Urine Bacteria Hyaline Casts Blood Type Antibody Screen 09/15/23 09/15/23 09/15/23 05:04 05:55 07:07 WBC RBC Hgb Hct MCV MCH MCHC RDW Plt Count MPV Immature Gran % (Auto) Neut % (Auto) Lymph % (Auto) [place] % (Auto) Eos % (Auto) Baso % (Auto) Lymph # (Auto) [place] # (Auto) Eos # (Auto) Baso # (Auto) Abs Immat Gran (auto) Absolute Neuts (auto) Absolute Nucleated RBC Nucleated RBC % (auto) Neutrophils % (Manual) Band Neutrophils % Lymphocytes % (Manual) Monocytes % (Manual) Metamyelocytes % Myelocytes % Promyelocytes % Abs Neuts (Manual) Lymphocytes # (Manual) Monocytes # (Manual) Metamyelocytes # Myelocytes # Promyelocytes # Nucleated RBCs Toxic Granulation Toxic Vacuolation Platelet Estimate Plt Morphology Comment RBC Morphology [place] Cells ESR Hold Purple Top O2 Saturation ABG pH at Pt Temp ABG pH (Temp Correct) ABG pCO2 at Pt Temp ABG pCO2 (Temp Corrct ABG pO2 at Pt Temp ABG pO2 (Temp Correct ABG HCO3 ABG Base Excess (Actual) VBG pH VBG pCO2 VBG pO2 VBG HCO3 VBG O2 Saturation VBG Base Excess Sodium Potassium Chloride Carbon Dioxide Anion Gap BUN Creatinine Estim Creat Clear Calc Estimated GFR POC Glucose 290 H 282 H 256 H Random Glucose Lactic Acid Lactic Acid F/U @ 2Hr Lactic Acid F/U @ 4Hr Calcium Phosphorus Magnesium Total Bilirubin AST ALT Alkaline Phosphatase C-Reactive Protein Total Protein Albumin Beta-Hydroxybutyrate Urine Color Urine Appearance Urine pH Ur Specific [place] Urine Protein Urine Glucose (UA) Urine Ketones Urine Blood Urine Nitrite Ur Leukocyte Esterase Urine RBC Urine WBC Ur Squamous Epith Cells Urine Bacteria Hyaline Casts Blood Type Antibody Screen Progress Note: A&P Assessment and plan (1) Cuate gangrene: Status: Acute (2) DKA (diabetic ketoacidosis): Status: Acute (3) Morbid obesity: Status: Acute Plan Patient is a 48 Y M with hypertension, diabetes mellitus, presenting with c/f perineal?infection, 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, c/b distributive shock N: intubated, sedated w/ propofol, fentanyl gtt; wean as toerated CV: shock, likely septic; norepinephrine, vasopressin gtt; wean as tolerated; QTc prolongation; to monitor closely; judicious use of QTc-prolonging medications R: intubated for debridement; wean as tolerated GI: NPO; avoid tube feeds while on DKA protocol : c/f cuate's gangrene, s/p debridement 09/13; acute renal insufficiency, likely?pre-renal; to monitor renal indices H: profound leukocytosis, likely?reactive; to avoid chemical DVT prophylaxis amna-operatively; mechanical devices ID: c/f cuate's gangrene; empiric vancomycin, zosyn, clindamycin; to follow- up cultures; appreciate general surgery recommendations E: diabetic ketoacidosis, on DKA protocol Quality Stroke Does the patient have a stroke diagnosis?: No VTE Prior VTE?: No VTE Risk Level:: Medical - moderate - high VTE Device Contraindication: N/A - Device Ordered VTE Drug Contraindication: Treatment Not Tolerated
[2023-09-15] MEDS: Sodium Bicarbonate 8.4% 150 MEQ in Dextrose 5 % 850 ML 100 MEQ IV (07:39)
[2023-09-15] MEDS: Sodium,Potassium Phosphates POWD.PACK 2 PACKET PO ×3 (07:55→23:10)
[2023-09-15] MEDS: Midazolam HCl/PF 2 MG/2 ML VIAL 4 MG IVPUSH (08:00)
[2023-09-15] MEDS: Midazolam HCl/NS 50 MG/50 ML PLAST..BAG IVCONT ×2 (08:08→21:24)
[2023-09-15] MEDS: Vasopressin 20 UNIT/100 ML INFUS..BTL 12 UNIT IVCONT ×3 (08:18→21:28)
--- NOTE | 2023-09-15 08:19 | PM.ANESPROC ---
Procedures Date of Service Date of Service: 09/14/23 Arterial Line Size (Gauge): 20 Central Line Placement Left SC: Central Line Comments: PROCEDURE NOTE: Insertion left supraclavicular subclavian triple lumen catheter Indication: IV access for pressors and high dose potassium Anesthesia: Local supplemented with Versed and fentanyl. Procedure: The left side great vessels were examined by US. There was a good sized RIJ vein which collapsed fully with every insp breath, and was unfavorably located. There was a very large supraclavic subclav vein that collapsed with insp effort, but not as much, and was very favorably located. Could not find an infraclavicular subclavian vein. The left neck and upper chest were prepped and draped. The vein was located by US and local anesthesia applied to the needle insertion site. Under US guidance, the needle was advanced into the vein, with positive blood asp. The wire was threaded easily. A 16cm triple lumen catheter was advanced to the hub via [place] tech with no difficulty. Pos asp x 3. Sutured 3-0 silk x 3. Biopatch and sterile dressing applied. CXR confirmed good position with no PTX. Sudha the procedure well with no cx. . Consent for Procedure: Elective - informed consent obtained (Verbal informed consent obtained as part of anesthesia signed consent.)
[2023-09-15 08:25] LABS: Glucose, Whole Blood 274 mg/dL (60-115)
[2023-09-15 08:28] LABS: Anion Gap 12 (12-20); Blood Urea Nitrogen 26 mg/dL (9-16); Calcium 9.8 mg/dL (8.4-10.2); Carbon Dioxide 22 mmol/L (22-29); Chloride 114 mmol/L (96-108); Creatinine Clr Calc Pharmacy 111.6; Estimated Glomerular Filt Rate > 60; Glucose Random 259 mg/dL (60-115); Magnesium 2.2 mg/dL (1.6-2.6); Phosphorus 1.3 mg/dL (2.7-4.5); Potassium 3.1 mmol/L (3.3-5.1); Sodium 145 mmol/L (135-145)
[2023-09-15] MEDS: Norepinephrine Bitartrate/D5W 8 MG/250 ML PLAST..BAG 93.4 MG IV (08:50)
[2023-09-15 09:11] LABS: Glucose, Whole Blood 251 mg/dL (60-115)
--- NOTE | 2023-09-15 09:17 | MHC.CM.PN ---
Addendum entered by Sonya Lema 09/15/23 14:09: Phone call received from pts daughter Marce, pt states her grandmother Nini received this CM's voicemail but does not speak any [place]. Per Marce, her dad verbalized that she (Mary) would be his HCP, but they did not create a formal document. Per Marce, pt lives alone at home in an apartment, and receives daily [employer] services. If pt should be discharged home, pts daughter will transport him home. DCP TBD at this time, pending pts clinical progress. Per Marce, they would be open to STR rehab services if they were recommended. CM will continue to follow. Addendum entered by Sonya Lema 09/15/23 13:35: This CM placed a call to pts mother Nini at [phone], voicemail was left, attempting return call. This CM placed a call to pts daughter Marce at [phone], unable to leave a voicemail. Original Note: Pt with dx Cuate Gangrene, currently in ICU intubated and sedated. This CM looked in pts room, no family present, will call family contact for further information.
[2023-09-15 10:19] LABS: Glucose, Whole Blood 223 mg/dL (60-115)
[2023-09-15] MEDS: Dextrose 5 % and Lactated Ring 1,000 ML 100 ML IVCONT (11:14)
[2023-09-15 11:17] LABS: Glucose, Whole Blood 214 mg/dL (60-115)
[2023-09-15] MEDS: Acetaminophen 1,000 MG/100 ML PIGGYBACK 400 MG IV (11:20)
[2023-09-15] MEDS: vancomycin HCL 1,500 MG in 0.9 % Sodium Chloride 500 ML 333.33 MG IV (11:30)
[2023-09-15] MEDS: Norepinephrine Bitartrate/D5W 8 MG/250 ML PLAST..BAG 82.41 MG IV (11:50)
[2023-09-15 12:14] LABS: Glucose, Whole Blood 221 mg/dL (60-115)
[2023-09-15 12:23] LABS: Anion Gap 10 (12-20); Blood Urea Nitrogen 22 mg/dL (9-16); Carbon Dioxide 23 mmol/L (22-29); Chloride 115 mmol/L (96-108); Creatinine Clr Calc Pharmacy 147.5; Estimated Glomerular Filt Rate > 60; Glucose Random 218 mg/dL (60-115); Magnesium 2.1 mg/dL (1.6-2.6); Phosphorus 1.3 mg/dL (2.7-4.5); Sodium 145 mmol/L (135-145)
[2023-09-15 13:10] LABS: Glucose, Whole Blood 189 mg/dL (60-115)
[2023-09-15] MEDS: Insulin Lispro 100 UNIT/ML 3 ML VIAL SUBCUT ×2 (14:04→17:46)
[2023-09-15 14:06] LABS: Glucose, Whole Blood 179 mg/dL (60-115)
--- NOTE | 2023-09-15 14:20 | P.PNGS_ITS ---
Subjective Subjective Date of Service: 09/16/23 Interval history: Remains on the ventilator On low-dose pressors - due to sedation Clinically septic Physical Exam 2 Vital Signs: Vital Signs: Last Vital Signs Temp 101.5 F H 09/15/23 13:00 Pulse 92 09/15/23 13:00 Resp 18 09/15/23 13:00 BP 119/41 L 09/15/23 13:00 Pulse Ox 94 09/15/23 13:00 O2 Del Method Mechanical Ventil ation 09/15/23 13:00 O2 Flow Rate 2.0 09/14/23 12:13 FiO2 30 09/15/23 13:00 BMI result Body Mass Index 51.3 Const: Other: Morbidly obese, On ventilator, sedated Resp: Other: On ventilator, sedated Cardio: Rate: regular rate GI: Other: Obese Palpation (GI): Soft to palpation Back/Spine/Pelvis: Other: Large open wound on the medial and posterior aspect of the proximal thigh to the buttock, much improved with regard to tissue viability, no obvious pus, no black areas, some skin discoloration flat laterally Objective Data Active Medications Chlorhexidine Gluconate (Chlorhexidine Gluc Oral Rinse 15 Ml Mouthwash) 15 ml BUCCAL TID [facility] Last Admin: 09/15/23 08:08 Dose: 15 ml Documented By: CECIL Glucose (Glucose Gel 15 Gm Gel..Gram.) 15 gm PO Q15M PRN; Protocol PRN Reason: per Hypoglycemia Standing Ord. Norepinephrine Bitartrate (Levophed) 8 mg in 250 mls @ 0 mls/hr IV .Q0M [facility]; Protocol Last Admin: 09/15/23 11:50 Dose: 0.3 mcg/kg/min, 82.41 mls/hr Documented By: CECIL Clindamycin Phosphate (Cleocin) 600 mg in 50 mls @ 100 mls/hr IV Q8H [facility] Last Infusion: 09/15/23 12:57 Dose: Infused Documented By: CECIL Propofol (Diprivan) 1,000 mg in 100 mls @ 0 mls/hr IVCONT .Q0M [facility]; Protocol Last Admin: 09/15/23 13:35 Dose: 40 mcg/kg/min, 34.34 mls/hr Documented By: CECIL Sodium Bicarbonate 150 meq/ (Dextrose) 1,000 mls @ 100 mls/hr IV .Q10H [facility] Last Infusion: 09/15/23 13:53 Dose: 0 mls/hr Documented By: CECIL Insulin Human Regular (Myxredlin) 100 unit in 100 mls @ 0 mls/hr IVCONT .Q0M [facility]; Protocol Last Titration: 09/15/23 13:53 Dose: 0 unit/hr, 0 mls/hr Documented By: CECIL Co-signed By: YEN Dextrose ([email or web address]) 250 mls @ 750 mls/hr IV Q15M PRN PRN Reason: per Hypoglycemia Standing Ord. Fentanyl (Sublimaze/Ns) 1,000 mcg in 100 mls @ 0 mls/hr IVCONT .Q0M [facility]; Protocol Last Admin: 09/15/23 10:49 Dose: 150 mcg/hr, 15 mls/hr Documented By: CECIL Vancomycin HCl 1,500 mg/ (Sodium Chloride) 500 mls @ 333.333 mls/hr IV Q12H [facility] Last Infusion: 09/15/23 13:01 Dose: Infused Documented By: CECIL Vasopressin (Vasostrict) 20 unit in 100 mls @ 12 mls/hr IVCONT .Q8H20M [facility] Last Admin: 09/15/23 08:18 Dose: 0.04 unit/min, 12 mls/hr Documented By: CECIL Midazolam HCl (Versed) 50 mg in 50 mls @ 2 mls/hr IVCONT .Q24H [facility] Last Admin: 09/15/23 08:08 Dose: 2 mg/hr, 2 mls/hr Documented By: CECIL Acetaminophen (Ofirmev) 1,000 mg in 100 mls @ 400 mls/hr IV Q6H PRN PRN Reason: Fever >100.4 Stop: 09/16/23 05:14 Last Infusion: 09/15/23 11:35 Dose: Infused Documented By: CECIL Dextrose/Lactated Ringer's ([id number]) 1,000 mls @ 100 mls/hr IVCONT .Q10H [facility] Last Infusion: 09/15/23 13:52 Dose: 0 mls/hr Documented By: CECIL Dextrose ([email or web address]) 250 mls @ 750 mls/hr IV Q15M PRN; Protocol PRN Reason: per Hypoglycemia Standing Ord. Potassium Phosphate (Kphos) 15 mmol in 250 mls @ 62.5 mls/hr IV ONCE ONE Stop: 09/15/23 17:39 Last Admin: 09/15/23 14:03 Dose: 62.5 mls/hr Documented By: CECIL Piperacillin Sod/Tazobactam (Sod 4.5 gm/ Sodium Chloride) 100 mls @ 200 mls/hr IV Q6H [facility] Insulin Glargine (Insulin Glargine,Hum.Rec.Anlog 100 Unit/Ml 10 Ml Vial) 20 unit SUBCUT BEDTIME [facility] Insulin Human Lispro (Insulin Lispro 100 Unit/Ml 3 Ml Vial) 0 unit SUBCUT Q6H [facility]; Protocol Last Admin: 09/15/23 14:04 Dose: 6 unit Documented By: CECIL Naloxone HCl (Naloxone Hcl 0.4 Mg/Ml Vial) 0.2 mg IVPUSH Q2M PRN PRN Reason: Excessive sedation or RR < 8 Pharmacy Consult (Consult Rx Vancomycin Dosing) 1 each MISCELLANE DAILY PRN PRN Reason: Consult order Potassium Phos/Sodium Phos (Sodium,Potassium Phosphates Powd.Pack) 2 packet PO Q8H [facility] Last Admin: 09/15/23 07:55 Dose: 2 packet Documented By: CECIL Sodium Chloride (0.9 % Sodium Chloride Flush 3 Ml Syringe) 3 ml IVFLUSH QSHIFT [facility] Last Admin: 09/15/23 07:40 Dose: 3 ml Documented By: CECIL Labs 09/16/23 04:35 09/16/23 04:35 Labs: Laboratory Results - last 24 hr 09/14/23 09/14/23 09/14/23 16:36 16:36 16:37 MCV 81.2 MCH 28.6 MCHC 35.3 RDW 15.9 Plt Count 326 MPV 9.1 L Immature Gran % (Auto) Cancelled Neut % (Auto) Cancelled Lymph % (Auto) Cancelled Anderson % (Auto) Cancelled Eos % (Auto) Cancelled Baso % (Auto) Cancelled Lymph # (Auto) Cancelled Anderson # (Auto) Cancelled Eos # (Auto) Cancelled Baso # (Auto) Cancelled Abs Immat Gran (auto) Cancelled Absolute Neuts (auto) Cancelled Absolute Nucleated RBC 0.050 H Nucleated RBC % (auto) 0.2 Neutrophils % (Manual) 60 Band Neutrophils % 23 H Lymphocytes % (Manual) 8 L Monocytes % (Manual) 3 Metamyelocytes % 4 Myelocytes % 2 Abs Neuts (Manual) 20.6 H Lymphocytes # (Manual) 2.0 Monocytes # (Manual) 0.7 Metamyelocytes # 1.0 Myelocytes # 0.5 Nucleated RBCs 1 H Toxic Granulation Platelet Estimate NORMAL Plt Morphology Comment NORMAL RBC Morphology NORMAL O2 Saturation ABG pH at Pt Temp ABG pH (Temp Correct) ABG pCO2 at Pt Temp ABG pCO2 (Temp Corrct ABG pO2 at Pt Temp ABG pO2 (Temp Correct ABG HCO3 ABG Base Excess (Actual) VBG pH VBG pCO2 VBG pO2 VBG HCO3 VBG O2 Saturation VBG Base Excess Anion Gap 14 Estim Creat Clear Calc 94.9 Estimated GFR 59 POC Glucose Random Glucose 323 H Lactic Acid F/U @ 4Hr 2.2 H* Calcium 9.4 D 9.5 Phosphorus 0.9 L* Magnesium 2.2 Total Bilirubin AST ALT Alkaline Phosphatase Total Protein Albumin 09/14/23 09/14/23 09/14/23 17:31 18:24 18:31 MCV MCH MCHC RDW Plt Count MPV Immature Gran % (Auto) Neut % (Auto) Lymph % (Auto) Anderson % (Auto) Eos % (Auto) Baso % (Auto) Lymph # (Auto) Anderson # (Auto) Eos # (Auto) Baso # (Auto) Abs Immat Gran (auto) Absolute Neuts (auto) Absolute Nucleated RBC Nucleated RBC % (auto) Neutrophils % (Manual) Band Neutrophils % Lymphocytes % (Manual) Monocytes % (Manual) Metamyelocytes % Myelocytes % Abs Neuts (Manual) Lymphocytes # (Manual) Monocytes # (Manual) Metamyelocytes # Myelocytes # Nucleated RBCs Toxic Granulation Platelet Estimate Plt Morphology Comment RBC Morphology O2 Saturation 94.0 ABG pH at Pt Temp 7.18 L* ABG pH (Temp Correct) ABG pCO2 at Pt Temp 39 ABG pCO2 (Temp Corrct ABG pO2 at Pt Temp 105 ABG pO2 (Temp Correct ABG HCO3 15 L ABG Base Excess (Actual) -12.4 VBG pH VBG pCO2 VBG pO2 VBG HCO3 VBG O2 Saturation VBG Base Excess Anion Gap Estim Creat Clear Calc Estimated GFR POC Glucose 270 H 267 H Random Glucose Lactic Acid F/U @ 4Hr Calcium Phosphorus Magnesium Total Bilirubin AST ALT Alkaline Phosphatase Total Protein Albumin 09/14/23 09/14/23 09/14/23 19:39 19:42 21:01 MCV MCH MCHC RDW Plt Count MPV Immature Gran % (Auto) Neut % (Auto) Lymph % (Auto) Anderson % (Auto) Eos % (Auto) Baso % (Auto) Lymph # (Auto) Anderson # (Auto) Eos # (Auto) Baso # (Auto) Abs Immat Gran (auto) Absolute Neuts (auto) Absolute Nucleated RBC Nucleated RBC % (auto) Neutrophils % (Manual) Band Neutrophils % Lymphocytes % (Manual) Monocytes % (Manual) Metamyelocytes % Myelocytes % Abs Neuts (Manual) Lymphocytes # (Manual) Monocytes # (Manual) Metamyelocytes # Myelocytes # Nucleated RBCs Toxic Granulation Platelet Estimate Plt Morphology Comment RBC Morphology O2 Saturation ABG pH at Pt Temp ABG pH (Temp Correct) ABG pCO2 at Pt Temp ABG pCO2 (Temp Corrct ABG pO2 at Pt Temp ABG pO2 (Temp Correct ABG HCO3 ABG Base Excess (Actual) VBG pH 7.29 L VBG pCO2 31 VBG pO2 68 VBG HCO3 15 L VBG O2 Saturation 89.0 VBG Base Excess -10.1 Anion Gap 12 Estim Creat Clear Calc 92.0 Estimated GFR 57 POC Glucose 296 H Random Glucose 268 H Lactic Acid F/U @ 4Hr Calcium 9.1 Phosphorus 2.1 L Magnesium 2.2 Total Bilirubin 0.2 AST 13 ALT 11 Alkaline Phosphatase 110 Total Protein 4.8 L Albumin 1.8 L 09/14/23 09/14/23 09/15/23 22:11 22:58 00:06 MCV MCH MCHC RDW Plt Count MPV Immature Gran % (Auto) Neut % (Auto) Lymph % (Auto) Anderson % (Auto) Eos % (Auto) Baso % (Auto) Lymph # (Auto) Anderson # (Auto) Eos # (Auto) Baso # (Auto) Abs Immat Gran (auto) Absolute Neuts (auto) Absolute Nucleated RBC Nucleated RBC % (auto) Neutrophils % (Manual) Band Neutrophils % Lymphocytes % (Manual) Monocytes % (Manual) Metamyelocytes % Myelocytes % Abs Neuts (Manual) Lymphocytes # (Manual) Monocytes # (Manual) Metamyelocytes # Myelocytes # Nucleated RBCs Toxic Granulation Platelet Estimate Plt Morphology Comment RBC Morphology O2 Saturation ABG pH at Pt Temp ABG pH (Temp Correct) ABG pCO2 at Pt Temp ABG pCO2 (Temp Corrct ABG pO2 at Pt Temp ABG pO2 (Temp Correct ABG HCO3 ABG Base Excess (Actual) VBG pH VBG pCO2 VBG pO2 VBG HCO3 VBG O2 Saturation VBG Base Excess Anion Gap Estim Creat Clear Calc Estimated GFR POC Glucose 350 H* 371 H* 351 H* Random Glucose Lactic Acid F/U @ 4Hr Calcium Phosphorus Magnesium Total Bilirubin AST ALT Alkaline Phosphatase Total Protein Albumin 09/15/23 09/15/23 09/15/23 00:56 01:08 02:06 MCV MCH MCHC RDW Plt Count MPV Immature Gran % (Auto) Neut % (Auto) Lymph % (Auto) Anderson % (Auto) Eos % (Auto) Baso % (Auto) Lymph # (Auto) Anderson # (Auto) Eos # (Auto) Baso # (Auto) Abs Immat Gran (auto) Absolute Neuts (auto) Absolute Nucleated RBC Nucleated RBC % (auto) Neutrophils % (Manual) Band Neutrophils % Lymphocytes % (Manual) Monocytes % (Manual) Metamyelocytes % Myelocytes % Abs Neuts (Manual) Lymphocytes # (Manual) Monocytes # (Manual) Metamyelocytes # Myelocytes # Nucleated RBCs Toxic Granulation Platelet Estimate Plt Morphology Comment RBC Morphology O2 Saturation ABG pH at Pt Temp ABG pH (Temp Correct) ABG pCO2 at Pt Temp ABG pCO2 (Temp Corrct ABG pO2 at Pt Temp ABG pO2 (Temp Correct ABG HCO3 ABG Base Excess (Actual) VBG pH VBG pCO2 VBG pO2 VBG HCO3 VBG O2 Saturation VBG Base Excess Anion Gap 12 Estim Creat Clear Calc 95.6 Estimated GFR 60 POC Glucose 300 H 292 H Random Glucose 326 H Lactic Acid F/U @ 4Hr Calcium 9.2 Phosphorus 1.9 L Magnesium 2.1 Total Bilirubin AST ALT Alkaline Phosphatase Total Protein Albumin 09/15/23 09/15/23 09/15/23 03:00 04:11 04:22 MCV 81.9 MCH 29.2 MCHC 35.7 RDW 16.5 H Plt Count 283 MPV 9.0 L Immature Gran % (Auto) Cancelled Neut % (Auto) Cancelled Lymph % (Auto) Cancelled Anderson % (Auto) Cancelled Eos % (Auto) Cancelled Baso % (Auto) Cancelled Lymph # (Auto) Cancelled Anderson # (Auto) Cancelled Eos # (Auto) Cancelled Baso # (Auto) Cancelled Abs Immat Gran (auto) Cancelled Absolute Neuts (auto) Cancelled Absolute Nucleated RBC 0.110 H Nucleated RBC % (auto) 0.5 H Neutrophils % (Manual) 46 Band Neutrophils % 34 H Lymphocytes % (Manual) 3 L Monocytes % (Manual) 3 Metamyelocytes % 8 Myelocytes % 6 Abs Neuts (Manual) 18.2 H Lymphocytes # (Manual) 0.7 L Monocytes # (Manual) 0.7 Metamyelocytes # 1.8 Myelocytes # 1.4 Nucleated RBCs Toxic Granulation PRESENT Platelet Estimate NORMAL Plt Morphology Comment NORMAL RBC Morphology NORMAL O2 Saturation ABG pH at Pt Temp ABG pH (Temp Correct) ABG pCO2 at Pt Temp ABG pCO2 (Temp Corrct ABG pO2 at Pt Temp ABG pO2 (Temp Correct ABG HCO3 ABG Base Excess (Actual) VBG pH VBG pCO2 VBG pO2 VBG HCO3 VBG O2 Saturation VBG Base Excess Anion Gap 14 Estim Creat Clear Calc 107.2 Estimated GFR > 60 POC Glucose 306 H 289 H Random Glucose 300 H Lactic Acid F/U @ 4Hr Calcium 9.6 Phosphorus 1.6 L Magnesium 2.1 Total Bilirubin AST ALT Alkaline Phosphatase Total Protein Albumin 09/15/23 09/15/23 09/15/23 04:23 04:23 04:23 MCV MCH MCHC RDW Plt Count MPV Immature Gran % (Auto) Neut % (Auto) Lymph % (Auto) Anderson % (Auto) Eos % (Auto) Baso % (Auto) Lymph # (Auto) Anderson # (Auto) Eos # (Auto) Baso # (Auto) Abs Immat Gran (auto) Absolute Neuts (auto) Absolute Nucleated RBC Nucleated RBC % (auto) Neutrophils % (Manual) Band Neutrophils % Lymphocytes % (Manual) Monocytes % (Manual) Metamyelocytes % Myelocytes % Abs Neuts (Manual) Lymphocytes # (Manual) Monocytes # (Manual) Metamyelocytes # Myelocytes # Nucleated RBCs Toxic Granulation Platelet Estimate Plt Morphology Comment RBC Morphology O2 Saturation Cancelled 94.0 ABG pH at Pt Temp Cancelled 7.36 ABG pH (Temp Correct) Cancelled ABG pCO2 at Pt Temp Cancelled ABG pCO2 (Temp Corrct ABG pO2 at Pt Temp ABG pO2 (Temp Correct ABG HCO3 ABG Base Excess (Actual) VBG pH VBG pCO2 VBG pO2 VBG HCO3 VBG O2 Saturation VBG Base Excess Anion Gap Estim Creat Clear Calc Estimated GFR POC Glucose Random Glucose Lactic Acid F/U @ 4Hr Calcium Phosphorus Magnesium Total Bilirubin AST ALT Alkaline Phosphatase Total Protein Albumin 09/15/23 09/15/23 09/15/23 04:23 04:23 04:23 MCV MCH MCHC RDW Plt Count MPV Immature Gran % (Auto) Neut % (Auto) Lymph % (Auto) Anderson % (Auto) Eos % (Auto) Baso % (Auto) Lymph # (Auto) Anderson # (Auto) Eos # (Auto) Baso # (Auto) Abs Immat Gran (auto) Absolute Neuts (auto) Absolute Nucleated RBC Nucleated RBC % (auto) Neutrophils % (Manual) Band Neutrophils % Lymphocytes % (Manual) Monocytes % (Manual) Metamyelocytes % Myelocytes % Abs Neuts (Manual) Lymphocytes # (Manual) Monocytes # (Manual) Metamyelocytes # Myelocytes # Nucleated RBCs Toxic Granulation Platelet Estimate Plt Morphology Comment RBC Morphology O2 Saturation ABG pH at Pt Temp ABG pH (Temp Correct) ABG pCO2 at Pt Temp 33 ABG pCO2 (Temp Corrct Cancelled ABG pO2 at Pt Temp Cancelled 84 ABG pO2 (Temp Correct Cancelled ABG HCO3 Cancelled 19 L ABG Base Excess (Actual) Cancelled VBG pH VBG pCO2 VBG pO2 VBG HCO3 VBG O2 Saturation VBG Base Excess Anion Gap Estim Creat Clear Calc Estimated GFR POC Glucose Random Glucose Lactic Acid F/U @ 4Hr Calcium Phosphorus Magnesium Total Bilirubin AST ALT Alkaline Phosphatase Total Protein Albumin 09/15/23 09/15/23 09/15/23 04:23 05:04 05:55 MCV MCH MCHC RDW Plt Count MPV Immature Gran % (Auto) Neut % (Auto) Lymph % (Auto) Anderson % (Auto) Eos % (Auto) Baso % (Auto) Lymph # (Auto) Anderson # (Auto) Eos # (Auto) Baso # (Auto) Abs Immat Gran (auto) Absolute Neuts (auto) Absolute Nucleated RBC Nucleated RBC % (auto) Neutrophils % (Manual) Band Neutrophils % Lymphocytes % (Manual) Monocytes % (Manual) Metamyelocytes % Myelocytes % Abs Neuts (Manual) Lymphocytes # (Manual) Monocytes # (Manual) Metamyelocytes # Myelocytes # Nucleated RBCs Toxic Granulation Platelet Estimate Plt Morphology Comment RBC Morphology O2 Saturation ABG pH at Pt Temp ABG pH (Temp Correct) ABG pCO2 at Pt Temp ABG pCO2 (Temp Corrct ABG pO2 at Pt Temp ABG pO2 (Temp Correct ABG HCO3 ABG Base Excess (Actual) -5.4 VBG pH VBG pCO2 VBG pO2 VBG HCO3 VBG O2 Saturation VBG Base Excess Anion Gap Estim Creat Clear Calc Estimated GFR POC Glucose 290 H 282 H Random Glucose Lactic Acid F/U @ 4Hr Calcium Phosphorus Magnesium Total Bilirubin AST ALT Alkaline Phosphatase Total Protein Albumin 09/15/23 09/15/23 09/15/23 07:07 08:02 08:21 MCV MCH MCHC RDW Plt Count MPV Immature Gran % (Auto) Neut % (Auto) Lymph % (Auto) Anderson % (Auto) Eos % (Auto) Baso % (Auto) Lymph # (Auto) Anderson # (Auto) Eos # (Auto) Baso # (Auto) Abs Immat Gran (auto) Absolute Neuts (auto) Absolute Nucleated RBC Nucleated RBC % (auto) Neutrophils % (Manual) Band Neutrophils % Lymphocytes % (Manual) Monocytes % (Manual) Metamyelocytes % Myelocytes % Abs Neuts (Manual) Lymphocytes # (Manual) Monocytes # (Manual) Metamyelocytes # Myelocytes # Nucleated RBCs Toxic Granulation Platelet Estimate Plt Morphology Comment RBC Morphology O2 Saturation ABG pH at Pt Temp ABG pH (Temp Correct) ABG pCO2 at Pt Temp ABG pCO2 (Temp Corrct ABG pO2 at Pt Temp ABG pO2 (Temp Correct ABG HCO3 ABG Base Excess (Actual) VBG pH VBG pCO2 VBG pO2 VBG HCO3 VBG O2 Saturation VBG Base Excess Anion Gap 12 Estim Creat Clear Calc 111.6 Estimated GFR > 60 POC Glucose 256 H 274 H Random Glucose 259 H Lactic Acid F/U @ 4Hr Calcium 9.8 Phosphorus 1.3 L Magnesium 2.2 Total Bilirubin AST ALT Alkaline Phosphatase Total Protein Albumin 09/15/23 09/15/23 09/15/23 09:07 10:13 11:14 MCV MCH MCHC RDW Plt Count MPV Immature Gran % (Auto) Neut % (Auto) Lymph % (Auto) Anderson % (Auto) Eos % (Auto) Baso % (Auto) Lymph # (Auto) Anderson # (Auto) Eos # (Auto) Baso # (Auto) Abs Immat Gran (auto) Absolute Neuts (auto) Absolute Nucleated RBC Nucleated RBC % (auto) Neutrophils % (Manual) Band Neutrophils % Lymphocytes % (Manual) Monocytes % (Manual) Metamyelocytes % Myelocytes % Abs Neuts (Manual) Lymphocytes # (Manual) Monocytes # (Manual) Metamyelocytes # Myelocytes # Nucleated RBCs Toxic Granulation Platelet Estimate Plt Morphology Comment RBC Morphology O2 Saturation ABG pH at Pt Temp ABG pH (Temp Correct) ABG pCO2 at Pt Temp ABG pCO2 (Temp Corrct ABG pO2 at Pt Temp ABG pO2 (Temp Correct ABG HCO3 ABG Base Excess (Actual) VBG pH VBG pCO2 VBG pO2 VBG HCO3 VBG O2 Saturation VBG Base Excess Anion Gap Estim Creat Clear Calc Estimated GFR POC Glucose 251 H 223 H 214 H Random Glucose Lactic Acid F/U @ 4Hr Calcium Phosphorus Magnesium Total Bilirubin AST ALT Alkaline Phosphatase Total Protein Albumin 09/15/23 09/15/23 09/15/23 11:53 12:08 13:07 MCV MCH MCHC RDW Plt Count MPV Immature Gran % (Auto) Neut % (Auto) Lymph % (Auto) Anderson % (Auto) Eos % (Auto) Baso % (Auto) Lymph # (Auto) Anderson # (Auto) Eos # (Auto) Baso # (Auto) Abs Immat Gran (auto) Absolute Neuts (auto) Absolute Nucleated RBC Nucleated RBC % (auto) Neutrophils % (Manual) Band Neutrophils % Lymphocytes % (Manual) Monocytes % (Manual) Metamyelocytes % Myelocytes % Abs Neuts (Manual) Lymphocytes # (Manual) Monocytes # (Manual) Metamyelocytes # Myelocytes # Nucleated RBCs Toxic Granulation Platelet Estimate Plt Morphology Comment RBC Morphology O2 Saturation ABG pH at Pt Temp ABG pH (Temp Correct) ABG pCO2 at Pt Temp ABG pCO2 (Temp Corrct ABG pO2 at Pt Temp ABG pO2 (Temp Correct ABG HCO3 ABG Base Excess (Actual) VBG pH VBG pCO2 VBG pO2 VBG HCO3 VBG O2 Saturation VBG Base Excess Anion Gap 10 L Estim Creat Clear Calc 147.5 Estimated GFR > 60 POC Glucose 221 H 189 H Random Glucose 218 H Lactic Acid F/U @ 4Hr Calcium 9.0 D Phosphorus 1.3 L Magnesium 2.1 Total Bilirubin AST ALT Alkaline Phosphatase Total Protein Albumin 09/15/23 14:03 MCV MCH MCHC RDW Plt Count MPV Immature Gran % (Auto) Neut % (Auto) Lymph % (Auto) Anderson % (Auto) Eos % (Auto) Baso % (Auto) Lymph # (Auto) Anderson # (Auto) Eos # (Auto) Baso # (Auto) Abs Immat Gran (auto) Absolute Neuts (auto) Absolute Nucleated RBC Nucleated RBC % (auto) Neutrophils % (Manual) Band Neutrophils % Lymphocytes % (Manual) Monocytes % (Manual) Metamyelocytes % Myelocytes % Abs Neuts (Manual) Lymphocytes # (Manual) Monocytes # (Manual) Metamyelocytes # Myelocytes # Nucleated RBCs Toxic Granulation Platelet Estimate Plt Morphology Comment RBC Morphology O2 Saturation ABG pH at Pt Temp ABG pH (Temp Correct) ABG pCO2 at Pt Temp ABG pCO2 (Temp Corrct ABG pO2 at Pt Temp ABG pO2 (Temp Correct ABG HCO3 ABG Base Excess (Actual) VBG pH VBG pCO2 VBG pO2 VBG HCO3 VBG O2 Saturation VBG Base Excess Anion Gap Estim Creat Clear Calc Estimated GFR POC Glucose 179 H Random Glucose Lactic Acid F/U @ 4Hr Calcium Phosphorus Magnesium Total Bilirubin AST ALT Alkaline Phosphatase Total Protein Albumin Microbiology Microbiology Results: Microbiology 09/14/23 10:56 Blood Culture - Preliminary Blood - Venous No growth after 24 hours. 09/14/23 10:40 Blood Culture - Preliminary Blood - Venous No growth after 24 hours. Procedures Date of Service Date of Service: 09/16/23 Arterial Line Size (Gauge): 20 Progress Note: A&P Assessment and plan (1) Necrotizing soft tissue infection: Status: Acute Assessment and Plan: Dressings changed - tissue in deep wound much improved I have applied wet-to-dry dressings No signs of progression of necrotizing infection Clinically much improved compared to yesterday although still septic Bicarb now normal WBC down Plan to change dressings tomorrow again bring the patient back to the OR on Sunday to examine under anesthesia Continue current care as per motion picture set grip Family updated Time Spent With Patient Time: Total time managing care of this patient today ____ minutes. Quality Stroke Does the patient have a stroke diagnosis?: No VTE Prior VTE?: No VTE Risk Level:: Medical - moderate - high VTE Device Contraindication: N/A - Device Ordered VTE Drug Contraindication: Treatment Not Tolerated
--- NOTE | 2023-09-15 14:50 | HO.POSTANES ---
Post Anesthesia Evaluation Post Anesthesia Evaluation Date of Service: 09/15/23 Vital Signs: Vital Signs Temp Pulse Pulse Resp BP BP Pulse Ox 09/15/23 14:41 108 H 114/35 L 09/15/23 14:41 108 H 114/35 L 09/15/23 14:00 100.8 F H 111 H 28 H 111/32 L 89 L 09/15/23 13:00 101.5 F H 92 18 119/41 L 94 09/15/23 12:00 09/15/23 12:00 95 121/41 L 09/15/23 12:00 101.3 F H 95 19 124/44 L 94 09/15/23 11:50 94 119/41 L 09/15/23 11:50 94 119/41 L 09/15/23 11:07 09/15/23 11:00 101.3 F H 97 20 123/43 L 95 09/15/23 10:00 101.1 F H 98 23 H 125/44 L 95 09/15/23 09:53 112 H 134/48 L 09/15/23 09:00 100.9 F H 93 21 H 125/43 L 95 09/15/23 08:55 94 135/41 L 09/15/23 08:50 95 118/41 L 09/15/23 08:50 95 118/41 L 09/15/23 08:25 09/15/23 08:18 101 H 105/35 L 09/15/23 08:00 106/39 L 09/15/23 08:00 100.6 F H 103 H 23 H 107/36 L 95 09/15/23 07:45 120 H 129/48 L 09/15/23 07:14 09/15/23 07:00 100.4 F 100 21 H 116/39 L 96 09/15/23 06:19 104 H 111/38 L 09/15/23 06:19 104 H 111/38 L 09/15/23 05:54 100.4 F 09/15/23 05:51 100.2 F 96 19 117/39 L 96 09/15/23 04:50 100 F 96 20 127/41 L 96 09/15/23 04:43 97 131/43 L 09/15/23 04:25 97 130/42 L 09/15/23 04:11 09/15/23 04:00 09/15/23 04:00 99.7 F 101 H 20 137/45 L 95 09/15/23 03:58 103 H 131/43 L 09/15/23 03:56 100 133/46 L 09/15/23 03:56 100 133/46 L 09/15/23 02:56 99.3 F 99 20 130/43 L 95 O2 Del Method FiO2 09/15/23 14:41 09/15/23 14:41 09/15/23 14:00 Mechanical Ventilation 09/15/23 13:00 Mechanical Ventilation 09/15/23 12:00 30 09/15/23 12:00 09/15/23 12:00 Mechanical Ventilation 09/15/23 11:50 09/15/23 11:50 09/15/23 11:07 30 09/15/23 11:00 Mechanical Ventilation 09/15/23 10:00 Mechanical Ventilation 09/15/23 09:53 09/15/23 09:00 Mechanical Ventilation 09/15/23 08:55 09/15/23 08:50 09/15/23 08:50 09/15/23 08:25 30 09/15/23 08:18 09/15/23 08:00 09/15/23 08:00 Mechanical Ventilation 09/15/23 07:45 09/15/23 07:14 30 09/15/23 07:00 Mechanical Ventilation 09/15/23 06:19 09/15/23 06:19 09/15/23 05:54 09/15/23 05:51 Mechanical Ventilation 09/15/23 04:50 Mechanical Ventilation 09/15/23 04:43 09/15/23 04:25 09/15/23 04:11 30 09/15/23 04:00 30 09/15/23 04:00 Mechanical Ventilation 09/15/23 03:58 09/15/23 03:56 09/15/23 03:56 09/15/23 02:56 Mechanical Ventilation 30 Anesthesia: General Endotracheal-GETA Mental Status: Sedated Pain Control: Satisfactory Nausea/Vomiting: None Hydration: Adequate Anesthesia-Related Issues: No Anes. Related Issues Comments: pt. is still intubated
[2023-09-15] MEDS: Piperacillin Sodium/Tazobactam 4.5 GM in 0.9 % Sodium Chloride 100 ML IV ×2 (15:12→20:05)
[2023-09-15 15:14] LABS: Glucose, Whole Blood 226 mg/dL (60-115)
[2023-09-15] MEDS: Norepinephrine Bitartrate/D5W 8 MG/250 ML PLAST..BAG 76.92 MG IV (15:15)
[2023-09-15 16:05] LABS: Glucose, Whole Blood 258 mg/dL (60-115)
[2023-09-15 16:24] LABS: Anion Gap 15 (12-20); Blood Urea Nitrogen 24 mg/dL (9-16); Calcium 9.1 mg/dL (8.4-10.2); Carbon Dioxide 20 mmol/L (22-29); Chloride 113 mmol/L (96-108); Creatinine Clr Calc Pharmacy 136.2; Estimated Glomerular Filt Rate > 60; Glucose Random 270 mg/dL (60-115); Phosphorus 2.2 mg/dL (2.7-4.5); Potassium 3.4 mmol/L (3.3-5.1); Sodium 145 mmol/L (135-145)
[2023-09-15 17:29] LABS: Glucose, Whole Blood 307 mg/dL (60-115)
[2023-09-15 18:29] LABS: Anion Gap 18 (12-20); Blood Urea Nitrogen 24 mg/dL (9-16); Carbon Dioxide 19 mmol/L (22-29); Chloride 112 mmol/L (96-108); Creatinine Clr Calc Pharmacy 126.4; Estimated Glomerular Filt Rate > 60; Glucose Random 324 mg/dL (60-115); Magnesium 2.1 mg/dL (1.6-2.6); Phosphorus 2.6 mg/dL (2.7-4.5); Potassium 3.5 mmol/L (3.3-5.1); Sodium 145 mmol/L (135-145)
[2023-09-15] MEDS: Norepinephrine Bitartrate/D5W 8 MG/250 ML PLAST..BAG 71.42 MG IV ×2 (18:38→22:09)
[2023-09-15 21:17] LABS: Glucose, Whole Blood 313 mg/dL (60-115)
[2023-09-15] MEDS: Insulin Glargine,Hum.rec.anlog 100 UNIT/ML 10 ML VIAL 20 UNIT SUBCUT (21:19)
[2023-09-15 21:20] LABS: GASOB Int Neg Ctl Valid YES; GASOB Int Pos Ctl Valid YES; GASOB Lot 20632; Occult Blood Gastric POSITIVE (NEG)
[2023-09-15] MEDS: Pantoprazole Sodium 40 MG/10 ML VIAL 80 MG IVPUSH (21:22)
[2023-09-15 21:29] LABS: Vancomycin Random 16.7 mcg/mL (15-20)
[2023-09-15 22:45] LABS: Hematocrit 22.3 % (42.0-52.0)
[2023-09-15] MEDS: vancomycin HCL 1,250 MG in 0.9 % Sodium Chloride 250 ML 166.67 MG IV (22:47)
[2023-09-15] MEDS: Pantoprazole Sodium 80 MG in 0.9 % Sodium Chloride 80 ML 10 MG IV (23:04)
[2023-09-16] VITALS (52 sets, daily range): BP systolic 104–135; BP diastolic 39–59; PULSE 70–114; RESP 17–24; TEMP 34.5–38.1; O2SAT 94–100; BMI 51.3
[2023-09-16 00:04] LABS: Glucose, Whole Blood 309 mg/dL (60-115)
[2023-09-16] MEDS: Insulin Lispro 100 UNIT/ML 3 ML VIAL SUBCUT ×5 (00:07→23:44)
[2023-09-16] MEDS: propofoL 1,000 MG/100 ML VIAL 42.93 MG IVCONT (01:21)
[2023-09-16] MEDS: Norepinephrine Bitartrate/D5W 8 MG/250 ML PLAST..BAG 71.42 MG IV (01:41)
[2023-09-16] MEDS: Piperacillin Sodium/Tazobactam 4.5 GM in 0.9 % Sodium Chloride 100 ML IV ×4 (01:43→19:29)
[2023-09-16] MEDS: Clindamycin Phosphate/D5W 600 MG/50 ML PIGGYBACK 100 MG IV ×3 (03:14→19:24)
[2023-09-16] MEDS: propofoL 1,000 MG/100 ML VIAL 34.34 MG IVCONT ×3 (03:17→11:52)
[2023-09-16] MEDS: Vasopressin 20 UNIT/100 ML INFUS..BTL 12 UNIT IVCONT ×3 (04:44→19:56)
[2023-09-16 04:46] LABS: ABG Base Excess -7.7 mmol/L; ABG HCO3 17 mmol/L (22-26); ABG pCO2 30 mmHg (32-45); ABG pH 7.34 (7.35-7.45); ABG pO2 107 mmHg (83-108)
[2023-09-16 04:47] LABS: ABG Refer to POC result
[2023-09-16 04:52] LABS: Hematocrit 22.4 % (42.0-52.0); Hemoglobin 7.8 g/dl (14.0-18.0); Mean Corpuscular HGB Conc 34.8 g/dl (31.0-36.0); Mean Corpuscular Hemoglobin 28.8 pg (27.0-33.0); Mean Corpuscular Volume 82.7 fL (80.0-98.0); NRBC Pct Auto 0.3 /100WBC (0.0-0.2); Platelet Count 223 X10*3/uL (160-400); Red Blood Count 2.71 X10*6/uL (4.60-5.80); Red Cell Distribution Width 17.8 % (11.0-16.0); White Blood Count 26.8 X10*3/uL (4.8-10.8)
[2023-09-16] MEDS: fentaNYL citrate/NS 1,000 MCG/100 ML PLAST..BAG 15 MCG IVCONT ×4 (05:03→23:42)
[2023-09-16 05:06] LABS: Anion Gap 18 (12-20); Blood Urea Nitrogen 22 mg/dL (9-16); Calcium 8.6 mg/dL (8.4-10.2); Carbon Dioxide 18 mmol/L (22-29); Chloride 112 mmol/L (96-108); Creatinine Clr Calc Pharmacy 123.9; Estimated Glomerular Filt Rate > 60; Glucose Random 318 mg/dL (60-115); Magnesium 2.1 mg/dL (1.6-2.6); Phosphorus 3.8 mg/dL (2.7-4.5); Potassium 3.3 mmol/L (3.3-5.1); Sodium 145 mmol/L (135-145)
[2023-09-16 05:10] LABS: Glucose, Whole Blood 285 mg/dL (60-115)
[2023-09-16 05:19] LABS: Band Neutrophils Percent 25 % (3-5); Lymphocytes Absolute Manual 1.1 X10*3/uL (1.2-4.9); Lymphocytes Percent Manual 4 % (20-40); Metamyelocytes Absolute 0.8 X10*3/uL; Metamyelocytes Percent 3 %; Monocytes Absolute Manual 0.5 X10*3/uL (0.1-1.2); Monocytes Percent Manual 2 % (2-11); Myelocytes Absolute 1.3 X10*/uL; Myelocytes Percent 5 %; Neutrophils Percent Manual 61 % (45-73)
[2023-09-16 05:21] LABS: Hypochromasia 1+ (5-14) /OIF; Ovalocytes 1+ (5-14) /OIF; RBC Morphology NOTED; Target Cells 1+ (5-14) /OIF; Tear Drop Cells 1+ (0-2) /OIF
[2023-09-16 05:22] LABS: Dohle Bodies PRESENT
[2023-09-16 05:23] LABS: Platelet Estimate NORMAL (NORMAL); Platelet Morphology Comment NORMAL
[2023-09-16 05:25] LABS: Macrocytosis 1+ (5-14) /OIF; Stomatocytes 1+ (5-14) /OIF
[2023-09-16 05:26] LABS: Basophilic Stippling 1+ (0-2) /OIF
[2023-09-16] MEDS: Norepinephrine Bitartrate/D5W 8 MG/250 ML PLAST..BAG 60.44 MG IV (05:35)
[2023-09-16] MEDS: Pantoprazole Sodium 80 MG in 0.9 % Sodium Chloride 80 ML 10 MG IV (05:49)
--- NOTE | 2023-09-16 07:43 | PM.CCPN ---
Subjective Subjective Date of Service: 09/16/23 Interval History: no significant overnight events; continued septic shock, slightly improved Critical Care Time (minutes): 60 Physical Exam Vital Signs: Vital Signs: Last Vital Signs Temp 99.0 F 09/16/23 06:57 Pulse 78 09/16/23 06:57 Resp 18 09/16/23 06:57 BP 124/48 L 09/16/23 06:57 Pulse Ox 95 09/16/23 06:57 O2 Del Method Mechanical Ventil ation 09/16/23 06:57 O2 Flow Rate 2.0 09/14/23 12:13 FiO2 25 09/16/23 07:24 BMI result Body Mass Index 51.3 Const: Other: intubated, sedated; appreciable intermittent spontaneous movements General: comfortable and no acute distress HEENT: Head: Yes normal to inspection, Yes normocephalic and Yes atraumatic Eyes: General: appearance normal, both eyes and all related structures Neck: Neck: Yes normal visual inspection, Yes full ROM, Yes trachea midline and Yes supple Chest: Chest palpation & inspection: normal inspection of the chest Resp: Other: some appreciable mild wheezing; no appreciable rales, rhonchi Effort & Inspection: normal respiratory effort Cardio: Rate: regular rate Rhythm: regular rhythm GI: Inspection: Yes normal to inspection, No Abdominal wall edema and No distended Palpation (GI): Soft to palpation, not firm, nontender, no guarding and not rigid : Other: multiple bandages overlying perineum, clean, dry, intact Neuro: General: tone normal and moves all extremities Extrem: Other: appreciable 1+ pitting edema to bilateral knees General: Yes normal to inspection, Yes full ROM and Yes capillary refill normal Psych: Other: unable to assess Objective Data Labs 09/16/23 04:35 09/16/23 04:35 Labs: Laboratory Results - last 24 hr 09/15/23 09/15/23 09/15/23 08:02 08:21 09:07 WBC RBC Hgb Hct MCV MCH MCHC RDW Plt Count MPV Immature Gran % (Auto) Neut % (Auto) Lymph % (Auto) [place] % (Auto) Eos % (Auto) Baso % (Auto) Lymph # (Auto) [place] # (Auto) Eos # (Auto) Baso # (Auto) Abs Immat Gran (auto) Absolute Neuts (auto) Absolute Nucleated RBC Nucleated RBC % (auto) Neutrophils % (Manual) Band Neutrophils % Lymphocytes % (Manual) Monocytes % (Manual) Metamyelocytes % Myelocytes % Abs Neuts (Manual) Lymphocytes # (Manual) Monocytes # (Manual) Metamyelocytes # Myelocytes # Dohle Bodies Platelet Estimate Plt Morphology Comment RBC Morphology Hypochromasia Basophilic Stippling Macrocytosis Target Cells Tear Drop Cells Ovalocytes Stomatocytes O2 Saturation ABG pH at Pt Temp ABG pCO2 at Pt Temp ABG pO2 at Pt Temp ABG HCO3 ABG Base Excess (Actual) Sodium 145 Potassium 3.1 L Chloride 114 H Carbon Dioxide 22 Anion Gap 12 BUN 26 H Creatinine 1.11 Estim Creat Clear Calc 111.6 Estimated GFR > 60 POC Glucose 274 H 251 H Random Glucose 259 H Calcium 9.8 Phosphorus 1.3 L Magnesium 2.2 Gastric Occult Blood Random Vancomycin 09/15/23 09/15/23 09/15/23 10:13 11:14 11:53 WBC RBC Hgb Hct MCV MCH MCHC RDW Plt Count MPV Immature Gran % (Auto) Neut % (Auto) Lymph % (Auto) [place] % (Auto) Eos % (Auto) Baso % (Auto) Lymph # (Auto) [place] # (Auto) Eos # (Auto) Baso # (Auto) Abs Immat Gran (auto) Absolute Neuts (auto) Absolute Nucleated RBC Nucleated RBC % (auto) Neutrophils % (Manual) Band Neutrophils % Lymphocytes % (Manual) Monocytes % (Manual) Metamyelocytes % Myelocytes % Abs Neuts (Manual) Lymphocytes # (Manual) Monocytes # (Manual) Metamyelocytes # Myelocytes # Dohle Bodies Platelet Estimate Plt Morphology Comment RBC Morphology Hypochromasia Basophilic Stippling Macrocytosis Target Cells Tear Drop Cells Ovalocytes Stomatocytes O2 Saturation ABG pH at Pt Temp ABG pCO2 at Pt Temp ABG pO2 at Pt Temp ABG HCO3 ABG Base Excess (Actual) Sodium 145 Potassium 3.0 L Chloride 115 H Carbon Dioxide 23 Anion Gap 10 L BUN 22 H Creatinine 0.84 Estim Creat Clear Calc 147.5 Estimated GFR > 60 POC Glucose 223 H 214 H Random Glucose 218 H Calcium 9.0 D Phosphorus 1.3 L Magnesium 2.1 Gastric Occult Blood Random Vancomycin 09/15/23 09/15/23 09/15/23 12:08 13:07 14:03 WBC RBC Hgb Hct MCV MCH MCHC RDW Plt Count MPV Immature Gran % (Auto) Neut % (Auto) Lymph % (Auto) [place] % (Auto) Eos % (Auto) Baso % (Auto) Lymph # (Auto) [place] # (Auto) Eos # (Auto) Baso # (Auto) Abs Immat Gran (auto) Absolute Neuts (auto) Absolute Nucleated RBC Nucleated RBC % (auto) Neutrophils % (Manual) Band Neutrophils % Lymphocytes % (Manual) Monocytes % (Manual) Metamyelocytes % Myelocytes % Abs Neuts (Manual) Lymphocytes # (Manual) Monocytes # (Manual) Metamyelocytes # Myelocytes # Dohle Bodies Platelet Estimate Plt Morphology Comment RBC Morphology Hypochromasia Basophilic Stippling Macrocytosis Target Cells Tear Drop Cells Ovalocytes Stomatocytes O2 Saturation ABG pH at Pt Temp ABG pCO2 at Pt Temp ABG pO2 at Pt Temp ABG HCO3 ABG Base Excess (Actual) Sodium Potassium Chloride Carbon Dioxide Anion Gap BUN Creatinine Estim Creat Clear Calc Estimated GFR POC Glucose 221 H 189 H 179 H Random Glucose Calcium Phosphorus Magnesium Gastric Occult Blood Random Vancomycin 09/15/23 09/15/23 09/15/23 15:10 15:58 16:01 WBC RBC Hgb Hct MCV MCH MCHC RDW Plt Count MPV Immature Gran % (Auto) Neut % (Auto) Lymph % (Auto) [place] % (Auto) Eos % (Auto) Baso % (Auto) Lymph # (Auto) [place] # (Auto) Eos # (Auto) Baso # (Auto) Abs Immat Gran (auto) Absolute Neuts (auto) Absolute Nucleated RBC Nucleated RBC % (auto) Neutrophils % (Manual) Band Neutrophils % Lymphocytes % (Manual) Monocytes % (Manual) Metamyelocytes % Myelocytes % Abs Neuts (Manual) Lymphocytes # (Manual) Monocytes # (Manual) Metamyelocytes # Myelocytes # Dohle Bodies Platelet Estimate Plt Morphology Comment RBC Morphology Hypochromasia Basophilic Stippling Macrocytosis Target Cells Tear Drop Cells Ovalocytes Stomatocytes O2 Saturation ABG pH at Pt Temp ABG pCO2 at Pt Temp ABG pO2 at Pt Temp ABG HCO3 ABG Base Excess (Actual) Sodium 145 Potassium 3.4 Chloride 113 H Carbon Dioxide 20 L Anion Gap 15 BUN 24 H Creatinine 0.91 Estim Creat Clear Calc 136.2 Estimated GFR > 60 POC Glucose 226 H 258 H Random Glucose 270 H Calcium 9.1 Phosphorus 2.2 L Magnesium 2.0 Gastric Occult Blood Random Vancomycin 09/15/23 09/15/23 09/15/23 17:25 18:05 21:04 WBC RBC Hgb Hct MCV MCH MCHC RDW Plt Count MPV Immature Gran % (Auto) Neut % (Auto) Lymph % (Auto) [place] % (Auto) Eos % (Auto) Baso % (Auto) Lymph # (Auto) [place] # (Auto) Eos # (Auto) Baso # (Auto) Abs Immat Gran (auto) Absolute Neuts (auto) Absolute Nucleated RBC Nucleated RBC % (auto) Neutrophils % (Manual) Band Neutrophils % Lymphocytes % (Manual) Monocytes % (Manual) Metamyelocytes % Myelocytes % Abs Neuts (Manual) Lymphocytes # (Manual) Monocytes # (Manual) Metamyelocytes # Myelocytes # Dohle Bodies Platelet Estimate Plt Morphology Comment RBC Morphology Hypochromasia Basophilic Stippling Macrocytosis Target Cells Tear Drop Cells Ovalocytes Stomatocytes O2 Saturation ABG pH at Pt Temp ABG pCO2 at Pt Temp ABG pO2 at Pt Temp ABG HCO3 ABG Base Excess (Actual) Sodium 145 Potassium 3.5 Chloride 112 H Carbon Dioxide 19 L Anion Gap 18 BUN 24 H Creatinine 0.98 Estim Creat Clear Calc 126.4 Estimated GFR > 60 POC Glucose 307 H Random Glucose 324 H Calcium 9.0 Phosphorus 2.6 L Magnesium 2.1 Gastric Occult Blood POSITIVE Random Vancomycin 16.7 09/15/23 09/15/23 09/15/23 21:13 22:36 23:57 WBC RBC Hgb 8.0 L Hct 22.3 L MCV MCH MCHC RDW Plt Count MPV Immature Gran % (Auto) Neut % (Auto) Lymph % (Auto) [place] % (Auto) Eos % (Auto) Baso % (Auto) Lymph # (Auto) [place] # (Auto) Eos # (Auto) Baso # (Auto) Abs Immat Gran (auto) Absolute Neuts (auto) Absolute Nucleated RBC Nucleated RBC % (auto) Neutrophils % (Manual) Band Neutrophils % Lymphocytes % (Manual) Monocytes % (Manual) Metamyelocytes % Myelocytes % Abs Neuts (Manual) Lymphocytes # (Manual) Monocytes # (Manual) Metamyelocytes # Myelocytes # Dohle Bodies Platelet Estimate Plt Morphology Comment RBC Morphology Hypochromasia Basophilic Stippling Macrocytosis Target Cells Tear Drop Cells Ovalocytes Stomatocytes O2 Saturation ABG pH at Pt Temp ABG pCO2 at Pt Temp ABG pO2 at Pt Temp ABG HCO3 ABG Base Excess (Actual) Sodium Potassium Chloride Carbon Dioxide Anion Gap BUN Creatinine Estim Creat Clear Calc Estimated GFR POC Glucose 313 H 309 H Random Glucose Calcium Phosphorus Magnesium Gastric Occult Blood Random Vancomycin 09/16/23 09/16/23 04:35 05:07 WBC 26.8 H RBC 2.71 L Hgb 7.8 L Hct 22.4 L MCV 82.7 MCH 28.8 MCHC 34.8 RDW 17.8 H Plt Count 223 MPV 9.0 L Immature Gran % (Auto) Cancelled Neut % (Auto) Cancelled Lymph % (Auto) Cancelled [place] % (Auto) Cancelled Eos % (Auto) Cancelled Baso % (Auto) Cancelled Lymph # (Auto) Cancelled [place] # (Auto) Cancelled Eos # (Auto) Cancelled Baso # (Auto) Cancelled Abs Immat Gran (auto) Cancelled Absolute Neuts (auto) Cancelled Absolute Nucleated RBC 0.090 H Nucleated RBC % (auto) 0.3 H Neutrophils % (Manual) 61 Band Neutrophils % 25 H Lymphocytes % (Manual) 4 L Monocytes % (Manual) 2 Metamyelocytes % 3 Myelocytes % 5 Abs Neuts (Manual) 23.0 H Lymphocytes # (Manual) 1.1 L Monocytes # (Manual) 0.5 Metamyelocytes # 0.8 Myelocytes # 1.3 Dohle Bodies PRESENT Platelet Estimate NORMAL Plt Morphology Comment NORMAL RBC Morphology NOTED Hypochromasia 1+ (5-14) Basophilic Stippling 1+ (0-2) Macrocytosis 1+ (5-14) Target Cells 1+ (5-14) Tear Drop Cells 1+ (0-2) Ovalocytes 1+ (5-14) Stomatocytes 1+ (5-14) O2 Saturation 96.0 ABG pH at Pt Temp 7.34 L ABG pCO2 at Pt Temp 30 L ABG pO2 at Pt Temp 107 ABG HCO3 17 L ABG Base Excess (Actual) -7.7 Sodium 145 Potassium 3.3 Chloride 112 H Carbon Dioxide 18 L Anion Gap 18 BUN 22 H Creatinine 1.00 Estim Creat Clear Calc 123.9 Estimated GFR > 60 POC Glucose 285 H Random Glucose 318 H Calcium 8.6 Phosphorus 3.8 Magnesium 2.1 Gastric Occult Blood Random Vancomycin Microbiology Microbiology Results: Microbiology 09/14/23 10:56 Blood - Venous Blood Culture - Preliminary No growth after 24 hours. 09/14/23 10:40 Blood - Venous Blood Culture - Preliminary No growth after 24 hours. 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, c/b distributive shock N: intubated, sedated w/ propofol, fentanyl, midazolam gtt; wean as tolerated CV: shock, likely septic; norepinephrine, vasopressin gtt; wean as tolerated; QTc prolongation; to monitor closely; judicious use of QTc-prolonging medications R: intubated for debridement; wean as tolerated GI: NPO; possibly initiate tube feeds 09/17 : c/f jory's gangrene, s/p debridement 09/13; acute renal insufficiency, likely?pre-renal; to monitor renal indices H: profound leukocytosis, likely?reactive; to avoid chemical DVT prophylaxis amna-operatively; mechanical devices ID: c/f jory's gangrene; empiric vancomycin, zosyn, clindamycin; to follow-up cultures; appreciate general surgery recommendations E: diabetic ketoacidosis, on DKA protocol Quality Stroke Does the patient have a stroke diagnosis?: No VTE Prior VTE?: No VTE Risk Level:: Medical - moderate - high VTE Device Contraindication: N/A - Device Ordered VTE Drug Contraindication: Treatment Not Tolerated
[2023-09-16] MEDS: 0.9 % Sodium Chloride Flush 3 ML SYRINGE IVFLUSH ×3 (08:14→23:44)
[2023-09-16] MEDS: Chlorhexidine Gluc Oral Rinse 15 ML MOUTHWASH BUCCAL ×3 (08:14→20:02)
[2023-09-16] MEDS: Furosemide 20 MG/2 ML VIAL 10 MG IVPUSH (08:14)
[2023-09-16] MEDS: Insulin Glargine,Hum.rec.anlog 100 UNIT/ML 10 ML VIAL 10 UNIT SUBCUT (08:15)
[2023-09-16] MEDS: Sodium,Potassium Phosphates POWD.PACK 2 PACKET PO ×3 (08:15→23:45)
[2023-09-16] MEDS: Potassium Chloride/H20 40 MEQ/100 ML PIGGYBACK 100 MEQ IV ×2 (08:15→20:53)
[2023-09-16] MEDS: propofoL 1,000 MG/100 ML VIAL 25.76 MG IVCONT ×4 (08:54→22:17)
--- NOTE | 2023-09-16 09:43 | PM.PNGS ---
Subjective Subjective Date of Service: 09/17/23 Interval history: Clinically improving overall Remains intubated On pressors but on lower dose, with sedation and IV fentanyl Lower vent support settings required as well Physical Exam Vital Signs: Vital Signs: Last Vital Signs Temp 100.4 F 09/16/23 09:00 Pulse 84 09/16/23 09:00 Resp 18 09/16/23 09:00 BP 106/47 L 09/16/23 09:00 Pulse Ox 95 09/16/23 09:00 O2 Del Method Mechanical Ventil ation 09/16/23 09:00 O2 Flow Rate 2.0 09/14/23 12:13 FiO2 25 09/16/23 09:00 BMI result Body Mass Index 51.3 Const: Other: On ventilator Resp: Other: On ventilator Cardio: Rate: regular rate GI: Other: Obese Palpation (GI): Soft to palpation Back/Spine/Pelvis: Other: Large open wound distal buttock, and thigh, clean, no progression of necrotizing process, skin overlying the wound laterally seems to be nonviable Objective Data Active Medications Chlorhexidine Gluconate (Chlorhexidine Gluc Oral Rinse 15 Ml Mouthwash) 15 ml BUCCAL TID [facility] Last Admin: 09/16/23 08:14 Dose: 15 ml Documented By: CECIL Glucose (Glucose Gel 15 Gm Gel..Gram.) 15 gm PO Q15M PRN; Protocol PRN Reason: per Hypoglycemia Standing Ord. Norepinephrine Bitartrate (Levophed) 8 mg in 250 mls @ 0 mls/hr IV .Q0M [facility]; Protocol Last Titration: 09/16/23 08:10 Dose: 0.2 mcg/kg/min, 54.94 mls/hr Documented By: CECIL Clindamycin Phosphate (Cleocin) 600 mg in 50 mls @ 100 mls/hr IV Q8H [facility] Last Infusion: 09/16/23 03:47 Dose: Infused Documented By: GINA Propofol (Diprivan) 1,000 mg in 100 mls @ 0 mls/hr IVCONT .Q0M [facility]; Protocol Last Admin: 09/16/23 08:54 Dose: 30 mcg/kg/min, 25.76 mls/hr Documented By: CECIL Dextrose (D10) 250 mls @ 750 mls/hr IV Q15M PRN PRN Reason: per Hypoglycemia Standing Ord. Fentanyl (Sublimaze/Ns) 1,000 mcg in 100 mls @ 0 mls/hr IVCONT .Q0M [facility]; Protocol Last Admin: 09/16/23 05:03 Dose: 150 mcg/hr, 15 mls/hr Documented By: GINA Vasopressin (Vasostrict) 20 unit in 100 mls @ 12 mls/hr IVCONT .Q8H20M [facility] Last Admin: 09/16/23 04:44 Dose: 0.04 unit/min, 12 mls/hr Documented By: GINA Midazolam HCl (Versed) 50 mg in 50 mls @ 2 mls/hr IVCONT .Q24H [facility] Last Admin: 09/15/23 21:24 Dose: 2 mg/hr, 2 mls/hr Documented By: GINA Dextrose (D10) 250 mls @ 750 mls/hr IV Q15M PRN; Protocol PRN Reason: per Hypoglycemia Standing Ord. Piperacillin Sod/Tazobactam (Sod 4.5 gm/ Sodium Chloride) 100 mls @ 200 mls/hr IV Q6H [facility] Last Infusion: 09/16/23 08:45 Dose: Infused Documented By: CECIL Vancomycin HCl 1,250 mg/ (Sodium Chloride) 250 mls @ 166.667 mls/hr IV Q12H [facility] Last Infusion: 09/16/23 00:23 Dose: Infused Documented By: GINA Pantoprazole Sodium 80 mg/ (Sodium Chloride) 100 mls @ 10 mls/hr IV .Q10H [facility] Last Admin: 09/16/23 05:49 Dose: 8 mg/hr, 10 mls/hr Documented By: GINA Insulin Glargine (Insulin Glargine,Hum.Rec.Anlog 100 Unit/Ml 10 Ml Vial) 20 unit SUBCUT BEDTIME [facility] Last Admin: 09/15/23 21:19 Dose: 20 unit Documented By: GINA Insulin Glargine (Insulin Glargine,Hum.Rec.Anlog 100 Unit/Ml 10 Ml Vial) 10 unit SUBCUT DAILY [facility] Last Admin: 09/16/23 08:15 Dose: 10 unit Documented By: CECIL Insulin Human Lispro (Insulin Lispro 100 Unit/Ml 3 Ml Vial) 0 unit SUBCUT Q6H [facility]; Protocol Last Admin: 09/16/23 05:19 Dose: 6 unit Documented By: GINA Naloxone HCl (Naloxone Hcl 0.4 Mg/Ml Vial) 0.2 mg IVPUSH Q2M PRN PRN Reason: Excessive sedation or RR < 8 Pharmacy Consult (Consult Rx Vancomycin Dosing) 1 each MISCELLANE DAILY PRN PRN Reason: Consult order Potassium Phos/Sodium Phos (Sodium,Potassium Phosphates Powd.Pack) 2 packet PO Q8H [facility] Last Admin: 09/16/23 08:15 Dose: 2 packet Documented By: CECIL Sodium Chloride (0.9 % Sodium Chloride Flush 3 Ml Syringe) 3 ml IVFLUSH QSHIFT [facility] Last Admin: 09/16/23 08:14 Dose: 3 ml Documented By: CECIL Labs 09/17/23 04:32 09/17/23 04:32 Labs: Laboratory Results - last 24 hr 09/15/23 09/15/23 09/15/23 10:13 11:14 11:53 MCV MCH MCHC RDW Plt Count MPV Immature Gran % (Auto) Neut % (Auto) Lymph % (Auto) [place] % (Auto) Eos % (Auto) Baso % (Auto) Lymph # (Auto) [place] # (Auto) Eos # (Auto) Baso # (Auto) Abs Immat Gran (auto) Absolute Neuts (auto) Absolute Nucleated RBC Nucleated RBC % (auto) Neutrophils % (Manual) Band Neutrophils % Lymphocytes % (Manual) Monocytes % (Manual) Metamyelocytes % Myelocytes % Abs Neuts (Manual) Lymphocytes # (Manual) Monocytes # (Manual) Metamyelocytes # Myelocytes # Dohle Bodies Platelet Estimate Plt Morphology Comment RBC Morphology Hypochromasia Basophilic Stippling Macrocytosis Target Cells Tear Drop Cells Ovalocytes Stomatocytes O2 Saturation ABG pH at Pt Temp ABG pCO2 at Pt Temp ABG pO2 at Pt Temp ABG HCO3 ABG Base Excess (Actual) Anion Gap 10 L Estim Creat Clear Calc 147.5 Estimated GFR > 60 POC Glucose 223 H 214 H Random Glucose 218 H Calcium 9.0 D Phosphorus 1.3 L Magnesium 2.1 Gastric Occult Blood Random Vancomycin 09/15/23 09/15/23 09/15/23 12:08 13:07 14:03 MCV MCH MCHC RDW Plt Count MPV Immature Gran % (Auto) Neut % (Auto) Lymph % (Auto) [place] % (Auto) Eos % (Auto) Baso % (Auto) Lymph # (Auto) [place] # (Auto) Eos # (Auto) Baso # (Auto) Abs Immat Gran (auto) Absolute Neuts (auto) Absolute Nucleated RBC Nucleated RBC % (auto) Neutrophils % (Manual) Band Neutrophils % Lymphocytes % (Manual) Monocytes % (Manual) Metamyelocytes % Myelocytes % Abs Neuts (Manual) Lymphocytes # (Manual) Monocytes # (Manual) Metamyelocytes # Myelocytes # Dohle Bodies Platelet Estimate Plt Morphology Comment RBC Morphology Hypochromasia Basophilic Stippling Macrocytosis Target Cells Tear Drop Cells Ovalocytes Stomatocytes O2 Saturation ABG pH at Pt Temp ABG pCO2 at Pt Temp ABG pO2 at Pt Temp ABG HCO3 ABG Base Excess (Actual) Anion Gap Estim Creat Clear Calc Estimated GFR POC Glucose 221 H 189 H 179 H Random Glucose Calcium Phosphorus Magnesium Gastric Occult Blood Random Vancomycin 09/15/23 09/15/23 09/15/23 15:10 15:58 16:01 MCV MCH MCHC RDW Plt Count MPV Immature Gran % (Auto) Neut % (Auto) Lymph % (Auto) [place] % (Auto) Eos % (Auto) Baso % (Auto) Lymph # (Auto) [place] # (Auto) Eos # (Auto) Baso # (Auto) Abs Immat Gran (auto) Absolute Neuts (auto) Absolute Nucleated RBC Nucleated RBC % (auto) Neutrophils % (Manual) Band Neutrophils % Lymphocytes % (Manual) Monocytes % (Manual) Metamyelocytes % Myelocytes % Abs Neuts (Manual) Lymphocytes # (Manual) Monocytes # (Manual) Metamyelocytes # Myelocytes # Dohle Bodies Platelet Estimate Plt Morphology Comment RBC Morphology Hypochromasia Basophilic Stippling Macrocytosis Target Cells Tear Drop Cells Ovalocytes Stomatocytes O2 Saturation ABG pH at Pt Temp ABG pCO2 at Pt Temp ABG pO2 at Pt Temp ABG HCO3 ABG Base Excess (Actual) Anion Gap 15 Estim Creat Clear Calc 136.2 Estimated GFR > 60 POC Glucose 226 H 258 H Random Glucose 270 H Calcium 9.1 Phosphorus 2.2 L Magnesium 2.0 Gastric Occult Blood Random Vancomycin 09/15/23 09/15/2324 17:25 18:05 21:04 MCV MCH MCHC RDW Plt Count MPV Immature Gran % (Auto) Neut % (Auto) Lymph % (Auto) [place] % (Auto) Eos % (Auto) Baso % (Auto) Lymph # (Auto) [place] # (Auto) Eos # (Auto) Baso # (Auto) Abs Immat Gran (auto) Absolute Neuts (auto) Absolute Nucleated RBC Nucleated RBC % (auto) Neutrophils % (Manual) Band Neutrophils % Lymphocytes % (Manual) Monocytes % (Manual) Metamyelocytes % Myelocytes % Abs Neuts (Manual) Lymphocytes # (Manual) Monocytes # (Manual) Metamyelocytes # Myelocytes # Dohle Bodies Platelet Estimate Plt Morphology Comment RBC Morphology Hypochromasia Basophilic Stippling Macrocytosis Target Cells Tear Drop Cells Ovalocytes Stomatocytes O2 Saturation ABG pH at Pt Temp ABG pCO2 at Pt Temp ABG pO2 at Pt Temp ABG HCO3 ABG Base Excess (Actual) Anion Gap 18 Estim Creat Clear Calc 126.4 Estimated GFR > 60 POC Glucose 307 H Random Glucose 324 H Calcium 9.0 Phosphorus 2.6 L Magnesium 2.1 Gastric Occult Blood POSITIVE Random Vancomycin 16.7 09/15/23 09/15/23 09/16/23 21:13 23:57 04:35 MCV 82.7 MCH 28.8 MCHC 34.8 RDW 17.8 H Plt Count 223 MPV 9.0 L Immature Gran % (Auto) Cancelled Neut % (Auto) Cancelled Lymph % (Auto) Cancelled [place] % (Auto) Cancelled Eos % (Auto) Cancelled Baso % (Auto) Cancelled Lymph # (Auto) Cancelled [place] # (Auto) Cancelled Eos # (Auto) Cancelled Baso # (Auto) Cancelled Abs Immat Gran (auto) Cancelled Absolute Neuts (auto) Cancelled Absolute Nucleated RBC 0.090 H Nucleated RBC % (auto) 0.3 H Neutrophils % (Manual) 61 Band Neutrophils % 25 H Lymphocytes % (Manual) 4 L Monocytes % (Manual) 2 Metamyelocytes % 3 Myelocytes % 5 Abs Neuts (Manual) 23.0 H Lymphocytes # (Manual) 1.1 L Monocytes # (Manual) 0.5 Metamyelocytes # 0.8 Myelocytes # 1.3 Dohle Bodies PRESENT Platelet Estimate NORMAL Plt Morphology Comment NORMAL RBC Morphology NOTED Hypochromasia 1+ (5-14) Basophilic Stippling 1+ (0-2) Macrocytosis 1+ (5-14) Target Cells 1+ (5-14) Tear Drop Cells 1+ (0-2) Ovalocytes 1+ (5-14) Stomatocytes 1+ (5-14) O2 Saturation 96.0 ABG pH at Pt Temp 7.34 L ABG pCO2 at Pt Temp 30 L ABG pO2 at Pt Temp 107 ABG HCO3 17 L ABG Base Excess (Actual) -7.7 Anion Gap 18 Estim Creat Clear Calc 123.9 Estimated GFR > 60 POC Glucose 313 H 309 H Random Glucose 318 H Calcium 8.6 Phosphorus 3.8 Magnesium 2.1 Gastric Occult Blood Random Vancomycin 09/16/23 05:07 MCV MCH MCHC RDW Plt Count MPV Immature Gran % (Auto) Neut % (Auto) Lymph % (Auto) [place] % (Auto) Eos % (Auto) Baso % (Auto) Lymph # (Auto) [place] # (Auto) Eos # (Auto) Baso # (Auto) Abs Immat Gran (auto) Absolute Neuts (auto) Absolute Nucleated RBC Nucleated RBC % (auto) Neutrophils % (Manual) Band Neutrophils % Lymphocytes % (Manual) Monocytes % (Manual) Metamyelocytes % Myelocytes % Abs Neuts (Manual) Lymphocytes # (Manual) Monocytes # (Manual) Metamyelocytes # Myelocytes # Dohle Bodies Platelet Estimate Plt Morphology Comment RBC Morphology Hypochromasia Basophilic Stippling Macrocytosis Target Cells Tear Drop Cells Ovalocytes Stomatocytes O2 Saturation ABG pH at Pt Temp ABG pCO2 at Pt Temp ABG pO2 at Pt Temp ABG HCO3 ABG Base Excess (Actual) Anion Gap Estim Creat Clear Calc Estimated GFR POC Glucose 285 H Random Glucose Calcium Phosphorus Magnesium Gastric Occult Blood Random Vancomycin Microbiology Microbiology Results: Microbiology 09/14/23 10:56 Blood Culture - Preliminary Blood - Venous No growth after 24 hours. 09/14/23 10:40 Blood Culture - Preliminary Blood - Venous No growth after 24 hours. Procedures Date of Service Date of Service: 09/17/23 Arterial Line Size (Gauge): 20 Progress Note: A&P Assessment and plan (1) Necrotizing soft tissue infection: Status: Acute Assessment and Plan: Large open wound after debridement I have changes dressings and applied wet-to-dry using 2 Kerlix rolls Plan to bring patient to the OR tomorrow to re-examined the entire wound and debride nonviable skin I explained plan to family Mother Afshan will be given consent behalf of patient Patient overall much improved - acidosis seems resolved, good kidney function, better blood sugar control, WBC still elevated Time Spent With Patient Time: Total time managing care of this patient today ____ minutes. Quality Stroke Does the patient have a stroke diagnosis?: No VTE Prior VTE?: No VTE Risk Level:: Medical - moderate - high VTE Device Contraindication: N/A - Device Ordered VTE Drug Contraindication: Treatment Not Tolerated
[2023-09-16] MEDS: Norepinephrine Bitartrate/D5W 8 MG/250 ML PLAST..BAG 54.94 MG IV (09:57)
[2023-09-16] MEDS: vancomycin HCL 1,250 MG in 0.9 % Sodium Chloride 250 ML 166.67 MG IV ×2 (11:47→23:31)
[2023-09-16 12:12] LABS: Glucose, Whole Blood 277 mg/dL (60-115)
[2023-09-16] MEDS: Norepinephrine Bitartrate/D5W 8 MG/250 ML PLAST..BAG 43.95 MG IV ×2 (14:51→20:37)
[2023-09-16] MEDS: Pantoprazole Sodium 40 MG/10 ML VIAL IVPUSH (16:51)
[2023-09-16 18:30] LABS: Anion Gap 16 (12-20); Blood Urea Nitrogen 19 mg/dL (9-16); Calcium 8.3 mg/dL (8.4-10.2); Carbon Dioxide 23 mmol/L (22-29); Chloride 111 mmol/L (96-108); Creatinine Clr Calc Pharmacy 136.2; Estimated Glomerular Filt Rate > 60; Glucose Random 264 mg/dL (60-115); Magnesium 2.1 mg/dL (1.6-2.6); Phosphorus 3.8 mg/dL (2.7-4.5); Potassium 3.1 mmol/L (3.3-5.1); Sodium 147 mmol/L (135-145)
[2023-09-16] MEDS: Midazolam HCl/NS 50 MG/50 ML PLAST..BAG IVCONT (19:18)
[2023-09-16] MEDS: Potassium Chloride Packet 20 MEQ PACKET 40 MEQ PO (19:52)
[2023-09-16] MEDS: Insulin Glargine,Hum.rec.anlog 100 UNIT/ML 10 ML VIAL 20 UNIT SUBCUT (20:12)
[2023-09-16 21:56] LABS: Hematocrit 21.7 % (42.0-52.0); Hemoglobin 7.6 g/dl (14.0-18.0); Mean Corpuscular Hemoglobin 29.3 pg (27.0-33.0); Mean Corpuscular Volume 83.8 fL (80.0-98.0); Mean Platelet Volume 9.1 fL (9.4-12.4); NRBC Pct Auto 0.4 /100WBC (0.0-0.2); Platelet Count 222 X10*3/uL (160-400); Red Blood Count 2.59 X10*6/uL (4.60-5.80); Red Cell Distribution Width 17.2 % (11.0-16.0); White Blood Count 29.8 X10*3/uL (4.8-10.8)
[2023-09-16 22:03] LABS: Vancomycin Random 16.7 mcg/mL (15-20)
[2023-09-16 23:41] LABS: Glucose, Whole Blood 221 mg/dL (60-115)
[2023-09-17] VITALS (56 sets, daily range): BP systolic 98–150; BP diastolic 33–66; PULSE 73–116; RESP 14–24; TEMP 34.5–38.1; O2SAT 91–99; BMI 54.7
[2023-09-17] MEDS: propofoL 1,000 MG/100 ML VIAL 34.34 MG IVCONT ×2 (00:49→03:44)
[2023-09-17] MEDS: Norepinephrine Bitartrate/D5W 8 MG/250 ML PLAST..BAG 43.95 MG IV (01:18)
[2023-09-17] MEDS: Piperacillin Sodium/Tazobactam 4.5 GM in 0.9 % Sodium Chloride 100 ML IV ×4 (01:26→19:57)
[2023-09-17] MEDS: Clindamycin Phosphate/D5W 600 MG/50 ML PIGGYBACK 100 MG IV ×3 (03:18→19:26)
[2023-09-17] MEDS: Vasopressin 20 UNIT/100 ML INFUS..BTL 12 UNIT IVCONT ×3 (03:21→19:12)
[2023-09-17 04:42] LABS: ABG Base Excess 1.8 mmol/L; ABG HCO3 25 mmol/L (22-26); ABG pCO2 36 mmHg (32-45); ABG pH 7.45 (7.35-7.45); ABG pO2 75 mmHg (83-108)
[2023-09-17 04:52] LABS: Hemoglobin 7.4 g/dl (14.0-18.0); Mean Corpuscular HGB Conc 35.2 g/dl (31.0-36.0); Mean Corpuscular Hemoglobin 29.4 pg (27.0-33.0); Mean Corpuscular Volume 83.3 fL (80.0-98.0); NRBC Pct Auto 0.6 /100WBC (0.0-0.2); Platelet Count 207 X10*3/uL (160-400); Red Blood Count 2.52 X10*6/uL (4.60-5.80); Red Cell Distribution Width 17.3 % (11.0-16.0); White Blood Count 27.3 X10*3/uL (4.8-10.8)
[2023-09-17 05:09] LABS: Anion Gap 18 (12-20); Blood Urea Nitrogen 17 mg/dL (9-16); Calcium 8.5 mg/dL (8.4-10.2); Carbon Dioxide 20 mmol/L (22-29); Chloride 112 mmol/L (96-108); Creatinine Clr Calc Pharmacy 149.3; Estimated Glomerular Filt Rate > 60; Glucose Random 231 mg/dL (60-115); Magnesium 2.2 mg/dL (1.6-2.6); Phosphorus 3.2 mg/dL (2.7-4.5); Potassium 3.4 mmol/L (3.3-5.1); Sodium 147 mmol/L (135-145)
[2023-09-17 05:15] LABS: Band Neutrophils Percent 14 % (3-5); Basophils Abs Manual 0.3 X10*3/uL (0.0-0.2); Eosinophils Absolute Manual 0.3 X10*3/uL (0.0-0.4); Eosinophils Percent Manual 1 % (0-4); Lymphocytes Absolute Manual 1.4 X10*3/uL (1.2-4.9); Lymphocytes Percent Manual 5 % (20-40); Metamyelocytes Absolute 1.1 X10*3/uL; Metamyelocytes Percent 4 %; Monocytes Absolute Manual 0.3 X10*3/uL (0.1-1.2); Monocytes Percent Manual 1 % (2-11); Myelocytes Absolute 0.5 X10*/uL; Myelocytes Percent 2 %; Neutrophils Absolute Manual 23.8 X10*3/uL (2.0-8.3); Neutrophils Percent Manual 73 % (45-73)
[2023-09-17 05:16] LABS: Macrocytosis 1+ (5-14) /OIF; Ovalocytes 1+ (5-14) /OIF; RBC Morphology NOTED
[2023-09-17 05:17] LABS: Hypochromasia 1+ (5-14) /OIF; Spherocytes 1+ (0-2) /OIF; Stomatocytes 1+ (5-14) /OIF; Target Cells 1+ (5-14) /OIF; Tear Drop Cells 1+ (0-2) /OIF
[2023-09-17 05:18] LABS: Dohle Bodies PRESENT; Toxic Granulation PRESENT
[2023-09-17 05:19] LABS: Platelet Estimate NORMAL (NORMAL); Platelet Morphology Comment NORMAL
[2023-09-17 05:20] LABS: Basophilic Stippling 1+ (0-2) /OIF
[2023-09-17 05:21] LABS: ABG Refer to POC result
[2023-09-17 05:26] LABS: Glucose, Whole Blood 225 mg/dL (60-115)
[2023-09-17] MEDS: fentaNYL citrate/NS 1,000 MCG/100 ML PLAST..BAG 15 MCG IVCONT ×3 (05:52→19:02)
[2023-09-17] MEDS: propofoL 1,000 MG/100 ML VIAL 25.76 MG IVCONT ×3 (05:53→13:27)
[2023-09-17] MEDS: Insulin Lispro 100 UNIT/ML 3 ML VIAL SUBCUT ×4 (05:54→23:40)
[2023-09-17] MEDS: Pantoprazole Sodium 40 MG/10 ML VIAL IVPUSH ×2 (05:54→16:26)
--- NOTE | 2023-09-17 07:51 | P.PNCC_ITS ---
Subjective Subjective Date of Service: 09/17/23 Interval History: no significant overnight events; continued improvement of septic shock; likely additional debridement today Critical Care Time (minutes): 60 Physical Exam 2 Vital Signs: Vital Signs: Last Vital Signs Temp 99.1 F 09/17/23 07:00 Pulse 76 09/17/23 07:37 Resp 20 09/17/23 07:00 BP 122/50 L 09/17/23 07:37 Pulse Ox 97 09/17/23 07:00 O2 Del Method Mechanical Ventil ation 09/17/23 07:00 O2 Flow Rate 2.0 09/14/23 12:13 FiO2 25 09/17/23 07:35 BMI result Body Mass Index 54.7 Const: Other: intubated, sedated; appreciable morbid obesity General: comfortable and no acute distress HEENT: Head: Yes normal to inspection, Yes normocephalic and Yes atraumatic Eyes: General: appearance normal, both eyes and all related structures Neck: Neck: Yes normal visual inspection, Yes full ROM, Yes trachea midline and Yes supple Chest: Chest palpation & inspection: normal inspection of the chest Resp: Other: no appreciable rales, rhonchi, wheezing Effort & Inspection: normal respiratory effort Cardio: Rate: regular rate Rhythm: regular rhythm GI: Inspection: Yes normal to inspection, No Abdominal wall edema and No distended Palpation (GI): Soft to palpation, not firm, nontender, no guarding and not rigid : Other: appreciable bandages bilateral upper thigh and groin; no overt fluctuance, induration Neuro: General: tone normal and moves all extremities Extrem: General: Yes normal to inspection, Yes full ROM, Yes capillary refill normal and Yes no clubbing, cyanosis or edema Psych: Other: unable to assess Objective Data Labs 09/17/23 04:32 09/17/23 04:32 Labs: Laboratory Results - last 24 hr 09/16/23 09/16/23 09/16/23 12:08 18:05 21:01 WBC 29.8 H RBC 2.59 L Hgb 7.6 L Hct 21.7 L MCV 83.8 MCH 29.3 MCHC 35.0 RDW 17.2 H Plt Count 222 MPV 9.1 L Absolute Nucleated RBC 0.110 H Nucleated RBC % (auto) 0.4 H Neutrophils % (Manual) Band Neutrophils % Lymphocytes % (Manual) Monocytes % (Manual) Eosinophils % (Manual) Metamyelocytes % Myelocytes % Abs Neuts (Manual) Lymphocytes # (Manual) Monocytes # (Manual) Eosinophils # (Manual) Basophils # (Manual) Metamyelocytes # Myelocytes # Toxic Granulation Dohle Bodies Platelet Estimate Plt Morphology Comment RBC Morphology Hypochromasia Basophilic Stippling Macrocytosis Spherocytes Target Cells Tear Drop Cells Ovalocytes Stomatocytes O2 Saturation ABG pH at Pt Temp ABG pCO2 at Pt Temp ABG pO2 at Pt Temp ABG HCO3 ABG Base Excess (Actual) Sodium 147 H Potassium 3.1 L Chloride 111 H Carbon Dioxide 23 Anion Gap 16 BUN 19 H Creatinine 0.91 Estim Creat Clear Calc 136.2 Estimated GFR > 60 POC Glucose 277 H Random Glucose 264 H Calcium 8.3 L Phosphorus 3.8 Magnesium 2.1 Random Vancomycin 16.7 09/16/23 09/17/23 09/17/23 23:39 04:32 04:33 WBC 27.3 H RBC 2.52 L Hgb 7.4 L Hct 21.0 L* MCV 83.3 MCH 29.4 MCHC 35.2 RDW 17.3 H Plt Count 207 MPV 9.0 L Absolute Nucleated RBC 0.160 H Nucleated RBC % (auto) 0.6 H Neutrophils % (Manual) 73 Band Neutrophils % 14 H Lymphocytes % (Manual) 5 L Monocytes % (Manual) 1 L Eosinophils % (Manual) 1 Metamyelocytes % 4 Myelocytes % 2 Abs Neuts (Manual) 23.8 H Lymphocytes # (Manual) 1.4 Monocytes # (Manual) 0.3 Eosinophils # (Manual) 0.3 Basophils # (Manual) 0.3 H Metamyelocytes # 1.1 Myelocytes # 0.5 Toxic Granulation PRESENT Dohle Bodies PRESENT Platelet Estimate NORMAL Plt Morphology Comment NORMAL RBC Morphology NOTED Hypochromasia 1+ (5-14) Basophilic Stippling 1+ (0-2) Macrocytosis 1+ (5-14) Spherocytes 1+ (0-2) Target Cells 1+ (5-14) Tear Drop Cells 1+ (0-2) Ovalocytes 1+ (5-14) Stomatocytes 1+ (5-14) O2 Saturation 91.0 ABG pH at Pt Temp 7.45 ABG pCO2 at Pt Temp 36 ABG pO2 at Pt Temp 75 L ABG HCO3 25 ABG Base Excess (Actual) 1.8 Sodium 147 H Potassium 3.4 Chloride 112 H Carbon Dioxide 20 L Anion Gap 18 BUN 17 H Creatinine 0.83 Estim Creat Clear Calc 149.3 Estimated GFR > 60 POC Glucose 221 H Random Glucose 231 H Calcium 8.5 Phosphorus 3.2 Magnesium 2.2 Random Vancomycin 09/17/23 05:23 WBC RBC Hgb Hct MCV MCH MCHC RDW Plt Count MPV Absolute Nucleated RBC Nucleated RBC % (auto) Neutrophils % (Manual) Band Neutrophils % Lymphocytes % (Manual) Monocytes % (Manual) Eosinophils % (Manual) Metamyelocytes % Myelocytes % Abs Neuts (Manual) Lymphocytes # (Manual) Monocytes # (Manual) Eosinophils # (Manual) Basophils # (Manual) Metamyelocytes # Myelocytes # Toxic Granulation Dohle Bodies Platelet Estimate Plt Morphology Comment RBC Morphology Hypochromasia Basophilic Stippling Macrocytosis Spherocytes Target Cells Tear Drop Cells Ovalocytes Stomatocytes O2 Saturation ABG pH at Pt Temp ABG pCO2 at Pt Temp ABG pO2 at Pt Temp ABG HCO3 ABG Base Excess (Actual) Sodium Potassium Chloride Carbon Dioxide Anion Gap BUN Creatinine Estim Creat Clear Calc Estimated GFR POC Glucose 225 H Random Glucose Calcium Phosphorus Magnesium Random Vancomycin Microbiology Microbiology Results: Microbiology 09/14/23 10:56 Blood - Venous Blood Culture - Preliminary No growth after 48 hours. 09/14/23 10:40 Blood - Venous Blood Culture - Preliminary No growth after 48 hours. 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, c/b distributive shock N: intubated, sedated w/ propofol, fentanyl, midazolam gtt; wean as tolerated CV: shock, likely septic; norepinephrine, vasopressin gtt; wean as tolerated; QTc prolongation; to monitor closely; judicious use of QTc-prolonging medications R: intubated for debridement; wean as tolerated GI: NPO; possibly initiate tube feeds 09/17 : c/f jory's gangrene, s/p debridement 09/13; acute renal insufficiency, likely?pre-renal; to monitor renal indices H: profound leukocytosis, likely?reactive; to avoid chemical DVT prophylaxis amna-operatively; mechanical devices ID: c/f jory's gangrene; empiric vancomycin, zosyn, clindamycin; to follow- up cultures; appreciate general surgery recommendations E: diabetic ketoacidosis, on DKA protocol Quality Stroke Does the patient have a stroke diagnosis?: No VTE Prior VTE?: No VTE Risk Level:: Medical - moderate - high VTE Device Contraindication: N/A - Device Ordered VTE Drug Contraindication: Treatment Not Tolerated
[2023-09-17] MEDS: Sodium,Potassium Phosphates POWD.PACK 2 PACKET PO ×2 (08:04→16:26)
--- NOTE | 2023-09-17 08:04 | PM.EVENT ---
Event Note Date of Service: 09/17/23 Event Note: Patient stable overnight On pressors about lower dose On sedation Remains on ventilator Good urine output Overall clinically much improved Plan is to bring the patient to the OR for exam under anesthesia, further debridement I reviewed this with daughter Marce Cano who is the designated healthcare proxy now I explained the technique of this procedure and reviewed the risks, benefits, and alternatives She says she understands and has given consent Time Spent With Patient Time: Total time managing care of this patient today ____ minutes.
[2023-09-17] MEDS: 0.9 % Sodium Chloride Flush 3 ML SYRINGE IVFLUSH ×3 (08:07→23:51)
[2023-09-17] MEDS: Chlorothiazide Sodium 500 MG VIAL IVPUSH (08:30)
[2023-09-17] MEDS: Chlorhexidine Gluc Oral Rinse 15 ML MOUTHWASH BUCCAL ×3 (08:30→20:10)
[2023-09-17] MEDS: Insulin Glargine,Hum.rec.anlog 100 UNIT/ML 10 ML VIAL 15 UNIT SUBCUT (08:35)
--- NOTE | 2023-09-17 08:52 | MHC.CLN ---
PT IS INTUBATED AND SEDATED CURRENTLY DAY 4 NPO RECOMMEND PROMOTE AT MAX GOAL RATE 35ML/HR WITH 30ML PROSOURCE BID AND 300ML FREE WATER FLUSHES Q 6 HRS TO PROVIDE 960KCALS (1640KCALS WITH SEDATION; 25KCALS/KG BASED ON IBW), 82.5G TOTAL PROTEIN (1.26G/KG), 1905ML TOTAL WATER FROM FORMULA AND FLUSHES (29ML/KG BASED ON IBW) MONITOR TOLERANCE AND LYTES SEE ALSO FULL CLINICAL NUTRITION ASSESSMENT
[2023-09-17] MEDS: Norepinephrine Bitartrate/D5W 8 MG/250 ML PLAST..BAG 27.47 MG IV (09:46)
[2023-09-17 11:42] LABS: Glucose, Whole Blood 201 mg/dL (60-115)
[2023-09-17] MEDS: vancomycin HCL 1,250 MG in 0.9 % Sodium Chloride 250 ML 166.67 MG IV ×2 (11:47→22:29)
--- NOTE | 2023-09-17 12:18 | MHC.CM.PN ---
EMR REVIEWED. PT REMAINS INTUBATED AND SEDATED IN ICU. PLAN FOR FURTHER DEBRIDEMENT OF WOUND TODAY IN OR. CM WILL CONTINUE TO FOLLOW FOR PLAN, ANTICIPATE N NEED FOR EXTENSIVE WOUND CARE ON DC, REFERRAL SENT TO [facility] TO FOLLOW FOR POSSIBLE BED OFFER.
--- NOTE | 2023-09-17 13:31 | HO.ANESPROP2 ---
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 S/p excision of necrotic tissue 09/14/23. Remains intubated and sedated in ICU. On pressors. For further debridement of Right thigh wound. POC 201mg% Vented: OCETT #7.5 24cm @lips ACVC mode.450ml x18 Fi02 30% PEEP 6cm VS: T 100.4 BP 121/43 HR 82 RR18 94% (Fio2 0.3) Meds: Pressors- Levophed, Vasopressin Sedation- Propofol, Midazolam, Fentanyl Antibiotics- Clindamycin, Zosyn PMFSH Active Problems Active Problems: All Active Problems (Updated 09/17/23 @ 13:30 by Fanny Patel MD) Necrotizing soft tissue infection (Acute) Soft tissue infection (Acute) Morbid obesity (Acute) BMI 54.7 Cuate gangrene (Acute) Bandemia (Acute) DKA (diabetic ketoacidosis) (Acute) Sepsis (Acute) Past Medical History Medical History Necrotizing soft tissue infection Soft tissue infection Morbid obesity Back pain KIM (obstructive sleep apnea) Anxiety and depression Elevated WBCs Type 2 diabetes mellitus HTN (hypertension) Family History Family history of problems with anesthesia: No Surgical History Surgical History Hx of oral surgery History of Problems with Anesthesia: No Social History Social History Household Members: None Housing: Apartment Do you presently have visiting nurse or other home services: Yes ([employer] 4 times a week) Alcohol intake: never Patient Tobacco Use Status: Current everyday Tobacco user Tobacco use type: Cigarette Cigarettes Per Day: 2 Years Smoked: 25 Smoked in Last 30 Days: Yes e-Cigarette/Vaping Use: Never Used Patient Interested in Nicotine Replacement: No Use of substances other than those prescribed or required for medical reasons: No Substance Use Type: Marijuana Substance Use Frequency: Chronic Longstanding Currently Displaying Signs/Symptoms of Drug Intoxication Withdrawal: No Have you been hit, kicked, punched, or otherwise hurt by someone within the past year? If so, by whom?: No Do you feel safe in your current relationship?: No Current Relationship Is there a partner from a previous relationship who is making you feel unsafe now?: No Are you made to feel afraid or neglected: No Advance Directives: No Advance Directives Information Provided: Yes Advance Directives on File: Yes Advance Directives Date on File: 09/14/23 Do you have a plan to hurt others: No Plan Recently lost weight without trying: Unsure How much weight loss: Unsure Eating poorly because of decreased appetite: Yes Nutrition screen score: 5 Nutrition Risks: Dental problems service: No Meds Allergies Allergy/AdvReac Type Severity Reaction Status Date / Time No Known Allergies Allergy Verified 09/14/23 11:03 Active Medications: Current Medications Chlorhexidine Gluconate (Chlorhexidine Gluc Oral Rinse 15 Ml Mouthwash) 15 ml BUCCAL TID [facility] Last Admin: 09/17/23 08:30 Dose: 15 ml Glucose (Glucose Gel 15 Gm Gel..Gram.) 15 gm PO Q15M PRN; Protocol PRN Reason: per Hypoglycemia Standing Ord. Norepinephrine Bitartrate (Levophed) 8 mg in 250 mls @ 0 mls/hr IV .Q0M [facility]; Protocol Last Titration: 09/17/23 09:53 Dose: 0.08 mcg/kg/min, 21.98 mls/hr Clindamycin Phosphate (Cleocin) 600 mg in 50 mls @ 100 mls/hr IV Q8H [facility] Last Infusion: 09/17/23 12:33 Dose: Infused Propofol (Diprivan) 1,000 mg in 100 mls @ 0 mls/hr IVCONT .Q0M [facility]; Protocol Last Admin: 09/17/23 13:27 Dose: 30 mcg/kg/min, 25.76 mls/hr Dextrose (D10) 250 mls @ 750 mls/hr IV Q15M PRN PRN Reason: per Hypoglycemia Standing Ord. Fentanyl (Sublimaze/Ns) 1,000 mcg in 100 mls @ 0 mls/hr IVCONT .Q0M [facility]; Protocol Last Admin: 09/17/23 12:23 Dose: 150 mcg/hr, 15 mls/hr Vasopressin (Vasostrict) 20 unit in 100 mls @ 12 mls/hr IVCONT .Q8H20M [facility] Last Admin: 09/17/23 11:28 Dose: 0.04 unit/min, 12 mls/hr Midazolam HCl (Versed) 50 mg in 50 mls @ 2 mls/hr IVCONT .Q24H [facility] Last Admin: 09/16/23 19:18 Dose: 2 mg/hr, 2 mls/hr Piperacillin Sod/Tazobactam (Sod 4.5 gm/ Sodium Chloride) 100 mls @ 200 mls/hr IV Q6H [facility] Last Infusion: 09/17/23 08:57 Dose: Infused Vancomycin HCl 1,250 mg/ (Sodium Chloride) 250 mls @ 166.667 mls/hr IV Q12H [facility] Last Infusion: 09/17/23 13:26 Dose: Infused Insulin Glargine (Insulin Glargine,Hum.Rec.Anlog 100 Unit/Ml 10 Ml Vial) 20 unit SUBCUT BEDTIME [facility] Last Admin: 09/16/23 20:12 Dose: 20 unit Insulin Glargine (Insulin Glargine,Hum.Rec.Anlog 100 Unit/Ml 10 Ml Vial) 15 unit SUBCUT DAILY [facility] Last Admin: 09/17/23 08:35 Dose: 15 unit Insulin Human Lispro (Insulin Lispro 100 Unit/Ml 3 Ml Vial) 0 unit SUBCUT Q6H [facility]; Protocol Last Admin: 09/17/23 11:55 Dose: 4 unit Naloxone HCl (Naloxone Hcl 0.4 Mg/Ml Vial) 0.2 mg IVPUSH Q2M PRN PRN Reason: Excessive sedation or RR < 8 Pantoprazole Sodium (Pantoprazole Sodium 40 Mg/10 Ml Vial) 40 mg IVPUSH BID@0630,1630 [facility] Last Admin: 09/17/23 05:54 Dose: 40 mg Pharmacy Consult (Consult Rx Vancomycin Dosing) 1 each MISCELLANE DAILY PRN PRN Reason: Consult order Potassium Phos/Sodium Phos (Sodium,Potassium Phosphates Powd.Pack) 2 packet PO Q8H [facility] Last Admin: 09/17/23 08:04 Dose: 2 packet Sodium Chloride (0.9 % Sodium Chloride Flush 3 Ml Syringe) 3 ml IVFLUSH QSHIFT [facility] Last Admin: 09/17/23 08:07 Dose: 3 ml Home Medications ?Medication ?Instructions ?Recorded ?Confirmed ?Last Taken ?Type cholecalciferol (vitamin D3) 50 1 cap PO DAILY 02/27/22 09/14/23 Unknown History mcg (2,000 unit) capsule (Vitamin D3) clonazepam 1 mg tablet 1 tab PO BID 02/27/22 09/14/23 Unknown History cyanocobalamin (vitamin B-12) 1 tab PO DAILY 02/27/22 09/14/23 Unknown History 1,000 mcg tablet dulaglutide 4.5 mg/0.5 mL 0.5 ml subcut QWEEK 02/27/22 02/27/22 Unknown History subcutaneous pen injector (Trulicity) empagliflozin 25 mg tablet 1 tab PO DAILY 02/27/22 09/15/23 Unknown History (Jardiance) gabapentin 300 mg capsule 1 cap PO BID 02/27/22 09/14/23 Unknown History lisinopril 20 mg tablet 1 tab PO DAILY 02/27/22 09/14/23 03/14/22 History mirtazapine 45 mg tablet 1 tab BEDTIME 02/27/22 09/14/23 Unknown History ropinirole 1 mg tablet 1 tab PO BEDTIME 02/27/22 09/14/23 Unknown History sertraline 100 mg tablet 2 tab PO DAILY 02/27/22 09/14/23 Unknown History tramadol 50 mg tablet 1 - 2 tab PO Q8H PRN Pain 02/27/22 09/14/23 Unknown History mometasone 200 mcg/actuation HFA 1 puff inhalation BID 09/14/23 09/14/23 Unknown History aerosol inhaler (Asmanex HFA) ziprasidone HCl 40 mg capsule 40 mg PO DAILY@1800 09/14/23 09/15/23 Unknown History Exam Height,Weight and Vital Signs: Height 5 ft 6 in Weight 153.6 kg Last Vital Signs Temp 100.4 F 09/17/23 13:00 Pulse 80 09/17/23 13:00 Resp 20 09/17/23 13:00 BP 115/40 L 09/17/23 13:00 Pulse Ox 94 09/17/23 13:00 O2 Del Method Mechanical Ventilation 09/17/23 13:00 O2 Flow Rate 2.0 09/14/23 12:13 FiO2 25 09/17/23 13:00 Pertinent Lab Results Pertinent Lab Results: Laboratory Tests 09/14/23 09/14/23 09/14/23 10:40 10:41 10:56 WBC 37.8 H* RBC 4.59 L Hgb 13.3 L Hct 38.5 L MCV 83.9 MCH 29.0 MCHC 34.5 RDW 16.9 H Plt Count 446 H MPV 9.5 Immature Gran % (Auto) Cancelled Neut % (Auto) Cancelled Lymph % (Auto) Cancelled [place] % (Auto) Cancelled Eos % (Auto) Cancelled Baso % (Auto) Cancelled Lymph # (Auto) Cancelled [place] # (Auto) Cancelled Eos # (Auto) Cancelled Baso # (Auto) Cancelled Abs Immat Gran (auto) Cancelled Absolute Neuts (auto) Cancelled Absolute Nucleated RBC 0.110 H Nucleated RBC % (auto) 0.3 H Neutrophils % (Manual) 76 H Band Neutrophils % 11 H Lymphocytes % (Manual) 2 L Monocytes % (Manual) 3 Eosinophils % (Manual) Metamyelocytes % 4 Myelocytes % 2 Promyelocytes % 2 Abs Neuts (Manual) 32.9 H Lymphocytes # (Manual) 0.8 L Monocytes # (Manual) 1.1 Eosinophils # (Manual) Basophils # (Manual) Metamyelocytes # 1.5 Myelocytes # 0.8 Promyelocytes # 0.8 Nucleated RBCs 1 H Toxic Granulation Toxic Vacuolation Dohle Bodies Platelet Estimate NORMAL Plt Morphology Comment NORMAL RBC Morphology NOTED Hypochromasia Basophilic Stippling Macrocytosis Spherocytes Target Cells Tear Drop Cells Ovalocytes Stomatocytes [place] Cells 3+ (>5) Smear Path Review ESR 54 H Hold Purple Top O2 Saturation ABG pH at Pt Temp ABG pH (Temp Correct) ABG pCO2 at Pt Temp ABG pCO2 (Temp Corrct ABG pO2 at Pt Temp ABG pO2 (Temp Correct ABG HCO3 ABG Base Excess (Actual) VBG pH VBG pCO2 VBG pO2 VBG HCO3 VBG O2 Saturation VBG Base Excess Sodium 133 L Potassium 2.5 L* D Chloride 104 Carbon Dioxide 9 L* D Anion Gap 23 H BUN 38 H Creatinine 1.80 H Estim Creat Clear Calc 69.5 Estimated GFR 41 POC Glucose Random Glucose 641 H* Lactic Acid 2.6 H* Lactic Acid F/U @ 2Hr Lactic Acid F/U @ 4Hr Calcium 10.2 D Phosphorus Magnesium 2.5 Total Bilirubin 0.2 AST 10 ALT 15 Alkaline Phosphatase 139 H C-Reactive Protein 29.26 H Total Protein 6.2 L Albumin 2.4 L Beta-Hydroxybutyrate 7.59 H Urine Color Urine Appearance Urine pH Ur Specific [place] Urine Protein Urine Glucose (UA) Urine Ketones Urine Blood Urine Nitrite Ur Leukocyte Esterase Urine RBC Urine WBC Ur Squamous Epith Cells Urine Bacteria Hyaline Casts Gastric Occult Blood Random Vancomycin Blood Type Antibody Screen 09/14/23 09/14/23 09/14/23 11:03 11:06 11:49 WBC RBC Hgb Hct MCV MCH MCHC RDW Plt Count MPV Immature Gran % (Auto) Neut % (Auto) Lymph % (Auto) [place] % (Auto) Eos % (Auto) Baso % (Auto) Lymph # (Auto) [place] # (Auto) Eos # (Auto) Baso # (Auto) Abs Immat Gran (auto) Absolute Neuts (auto) Absolute Nucleated RBC Nucleated RBC % (auto) Neutrophils % (Manual) Band Neutrophils % Lymphocytes % (Manual) Monocytes % (Manual) Eosinophils % (Manual) Metamyelocytes % Myelocytes % Promyelocytes % Abs Neuts (Manual) Lymphocytes # (Manual) Monocytes # (Manual) Eosinophils # (Manual) Basophils # (Manual) Metamyelocytes # Myelocytes # Promyelocytes # Nucleated RBCs Toxic Granulation Toxic Vacuolation Dohle Bodies Platelet Estimate Plt Morphology Comment RBC Morphology Hypochromasia Basophilic Stippling Macrocytosis Spherocytes Target Cells Tear Drop Cells Ovalocytes Stomatocytes [place] Cells Smear Path Review ESR Hold Purple Top O2 Saturation ABG pH at Pt Temp ABG pH (Temp Correct) ABG pCO2 at Pt Temp ABG pCO2 (Temp Corrct ABG pO2 at Pt Temp ABG pO2 (Temp Correct ABG HCO3 ABG Base Excess (Actual) VBG pH 7.17 L* VBG pCO2 18 VBG pO2 147 VBG HCO3 7 L VBG O2 Saturation 98.0 VBG Base Excess -19.0 Sodium Potassium Chloride Carbon Dioxide Anion Gap BUN Creatinine Estim Creat Clear Calc Estimated GFR POC Glucose 590 H* Random Glucose Lactic Acid Lactic Acid F/U @ 2Hr Lactic Acid F/U @ 4Hr Calcium Phosphorus Magnesium Total Bilirubin AST ALT Alkaline Phosphatase C-Reactive Protein Total Protein Albumin Beta-Hydroxybutyrate Urine Color Yellow Urine Appearance Cloudy Urine pH 6.0 Ur Specific [place] 1.025 Urine Protein 30 (1+) H Urine Glucose (UA) >=1000 H Urine Ketones 40 Urine Blood Trace H Urine Nitrite Negative Ur Leukocyte Esterase Negative Urine RBC 0-2 Urine WBC 0-5 Ur Squamous Epith Cells 3-5 Urine Bacteria None Seen Hyaline Casts 6-10 Gastric Occult Blood Random Vancomycin Blood Type Antibody Screen 09/14/23 09/14/23 09/14/23 12:39 13:31 13:31 WBC 24.2 H Cancelled RBC 4.70 Hgb Hct MCV MCH MCHC RDW Plt Count MPV Immature Gran % (Auto) Neut % (Auto) Lymph % (Auto) [place] % (Auto) Eos % (Auto) Baso % (Auto) Lymph # (Auto) [place] # (Auto) Eos # (Auto) Baso # (Auto) Abs Immat Gran (auto) Absolute Neuts (auto) Absolute Nucleated RBC Nucleated RBC % (auto) Neutrophils % (Manual) Band Neutrophils % Lymphocytes % (Manual) Monocytes % (Manual) Eosinophils % (Manual) Metamyelocytes % Myelocytes % Promyelocytes % Abs Neuts (Manual) Lymphocytes # (Manual) Monocytes # (Manual) Eosinophils # (Manual) Basophils # (Manual) Metamyelocytes # Myelocytes # Promyelocytes # Nucleated RBCs Toxic Granulation Toxic Vacuolation Dohle Bodies Platelet Estimate Plt Morphology Comment RBC Morphology Hypochromasia Basophilic Stippling Macrocytosis Spherocytes Target Cells Tear Drop Cells Ovalocytes Stomatocytes [place] Cells Smear Path Review ESR Hold Purple Top O2 Saturation ABG pH at Pt Temp ABG pH (Temp Correct) ABG pCO2 at Pt Temp ABG pCO2 (Temp Corrct ABG pO2 at Pt Temp ABG pO2 (Temp Correct ABG HCO3 ABG Base Excess (Actual) VBG pH VBG pCO2 VBG pO2 VBG HCO3 VBG O2 Saturation VBG Base Excess Sodium Potassium Chloride Carbon Dioxide Anion Gap BUN Creatinine Estim Creat Clear Calc Estimated GFR POC Glucose 550 H* Random Glucose Lactic Acid Lactic Acid F/U @ 2Hr Lactic Acid F/U @ 4Hr Calcium Phosphorus Magnesium Total Bilirubin AST ALT Alkaline Phosphatase C-Reactive Protein Total Protein Albumin Beta-Hydroxybutyrate Urine Color Urine Appearance Urine pH Ur Specific [place] Urine Protein Urine Glucose (UA) Urine Ketones Urine Blood Urine Nitrite Ur Leukocyte Esterase Urine RBC Urine WBC Ur Squamous Epith Cells Urine Bacteria Hyaline Casts Gastric Occult Blood Random Vancomycin Blood Type Antibody Screen 09/14/23 09/14/23 09/14/23 13:31 13:31 13:31 WBC RBC Cancelled Hgb 13.5 L Cancelled Hct 39.9 L Cancelled MCV 84.9 MCH MCHC RDW Plt Count MPV Immature Gran % (Auto) Neut % (Auto) Lymph % (Auto) [place] % (Auto) Eos % (Auto) Baso % (Auto) Lymph # (Auto) [place] # (Auto) Eos # (Auto) Baso # (Auto) Abs Immat Gran (auto) Absolute Neuts (auto) Absolute Nucleated RBC Nucleated RBC % (auto) Neutrophils % (Manual) Band Neutrophils % Lymphocytes % (Manual) Monocytes % (Manual) Eosinophils % (Manual) Metamyelocytes % Myelocytes % Promyelocytes % Abs Neuts (Manual) Lymphocytes # (Manual) Monocytes # (Manual) Eosinophils # (Manual) Basophils # (Manual) Metamyelocytes # Myelocytes # Promyelocytes # Nucleated RBCs Toxic Granulation Toxic Vacuolation Dohle Bodies Platelet Estimate Plt Morphology Comment RBC Morphology Hypochromasia Basophilic Stippling Macrocytosis Spherocytes Target Cells Tear Drop Cells Ovalocytes Stomatocytes [place] Cells Smear Path Review ESR Hold Purple Top O2 Saturation ABG pH at Pt Temp ABG pH (Temp Correct) ABG pCO2 at Pt Temp ABG pCO2 (Temp Corrct ABG pO2 at Pt Temp ABG pO2 (Temp Correct ABG HCO3 ABG Base Excess (Actual) VBG pH VBG pCO2 VBG pO2 VBG HCO3 VBG O2 Saturation VBG Base Excess Sodium Potassium Chloride Carbon Dioxide Anion Gap BUN Creatinine Estim Creat Clear Calc Estimated GFR POC Glucose Random Glucose Lactic Acid Lactic Acid F/U @ 2Hr Lactic Acid F/U @ 4Hr Calcium Phosphorus Magnesium Total Bilirubin AST ALT Alkaline Phosphatase C-Reactive Protein Total Protein Albumin Beta-Hydroxybutyrate Urine Color Urine Appearance Urine pH Ur Specific [place] Urine Protein Urine Glucose (UA) Urine Ketones Urine Blood Urine Nitrite Ur Leukocyte Esterase Urine RBC Urine WBC Ur Squamous Epith Cells Urine Bacteria Hyaline Casts Gastric Occult Blood Random Vancomycin Blood Type Antibody Screen 09/14/23 09/14/23 09/14/23 13:31 13:31 13:31 WBC RBC Hgb Hct MCV Cancelled MCH 28.7 Cancelled MCHC 33.8 Cancelled RDW 16.6 H Plt Count MPV Immature Gran % (Auto) Neut % (Auto) Lymph % (Auto) [place] % (Auto) Eos % (Auto) Baso % (Auto) Lymph # (Auto) [place] # (Auto) Eos # (Auto) Baso # (Auto) Abs Immat Gran (auto) Absolute Neuts (auto) Absolute Nucleated RBC Nucleated RBC % (auto) Neutrophils % (Manual) Band Neutrophils % Lymphocytes % (Manual) Monocytes % (Manual) Eosinophils % (Manual) Metamyelocytes % Myelocytes % Promyelocytes % Abs Neuts (Manual) Lymphocytes # (Manual) Monocytes # (Manual) Eosinophils # (Manual) Basophils # (Manual) Metamyelocytes # Myelocytes # Promyelocytes # Nucleated RBCs Toxic Granulation Toxic Vacuolation Dohle Bodies Platelet Estimate Plt Morphology Comment RBC Morphology Hypochromasia Basophilic Stippling Macrocytosis Spherocytes Target Cells Tear Drop Cells Ovalocytes Stomatocytes [place] Cells Smear Path Review ESR Hold Purple Top O2 Saturation ABG pH at Pt Temp ABG pH (Temp Correct) ABG pCO2 at Pt Temp ABG pCO2 (Temp Corrct ABG pO2 at Pt Temp ABG pO2 (Temp Correct ABG HCO3 ABG Base Excess (Actual) VBG pH VBG pCO2 VBG pO2 VBG HCO3 VBG O2 Saturation VBG Base Excess Sodium Potassium Chloride Carbon Dioxide Anion Gap BUN Creatinine Estim Creat Clear Calc Estimated GFR POC Glucose Random Glucose Lactic Acid Lactic Acid F/U @ 2Hr Lactic Acid F/U @ 4Hr Calcium Phosphorus Magnesium Total Bilirubin AST ALT Alkaline Phosphatase C-Reactive Protein Total Protein Albumin Beta-Hydroxybutyrate Urine Color Urine Appearance Urine pH Ur Specific [place] Urine Protein Urine Glucose (UA) Urine Ketones Urine Blood Urine Nitrite Ur Leukocyte Esterase Urine RBC Urine WBC Ur Squamous Epith Cells Urine Bacteria Hyaline Casts Gastric Occult Blood Random Vancomycin Blood Type Antibody Screen 09/14/23 09/14/23 09/14/23 13:31 13:31 13:31 WBC RBC Hgb Hct MCV MCH MCHC RDW Cancelled Plt Count 340 Cancelled MPV 9.0 L Cancelled Immature Gran % (Auto) Cancelled Neut % (Auto) Lymph % (Auto) [place] % (Auto) Eos % (Auto) Baso % (Auto) Lymph # (Auto) [place] # (Auto) Eos # (Auto) Baso # (Auto) Abs Immat Gran (auto) Absolute Neuts (auto) Absolute Nucleated RBC Nucleated RBC % (auto) Neutrophils % (Manual) Band Neutrophils % Lymphocytes % (Manual) Monocytes % (Manual) Eosinophils % (Manual) Metamyelocytes % Myelocytes % Promyelocytes % Abs Neuts (Manual) Lymphocytes # (Manual) Monocytes # (Manual) Eosinophils # (Manual) Basophils # (Manual) Metamyelocytes # Myelocytes # Promyelocytes # Nucleated RBCs Toxic Granulation Toxic Vacuolation Dohle Bodies Platelet Estimate Plt Morphology Comment RBC Morphology Hypochromasia Basophilic Stippling Macrocytosis Spherocytes Target Cells Tear Drop Cells Ovalocytes Stomatocytes [place] Cells Smear Path Review ESR Hold Purple Top O2 Saturation ABG pH at Pt Temp ABG pH (Temp Correct) ABG pCO2 at Pt Temp ABG pCO2 (Temp Corrct ABG pO2 at Pt Temp ABG pO2 (Temp Correct ABG HCO3 ABG Base Excess (Actual) VBG pH VBG pCO2 VBG pO2 VBG HCO3 VBG O2 Saturation VBG Base Excess Sodium Potassium Chloride Carbon Dioxide Anion Gap BUN Creatinine Estim Creat Clear Calc Estimated GFR POC Glucose Random Glucose Lactic Acid Lactic Acid F/U @ 2Hr Lactic Acid F/U @ 4Hr Calcium Phosphorus Magnesium Total Bilirubin AST ALT Alkaline Phosphatase C-Reactive Protein Total Protein Albumin Beta-Hydroxybutyrate Urine Color Urine Appearance Urine pH Ur Specific [place] Urine Protein Urine Glucose (UA) Urine Ketones Urine Blood Urine Nitrite Ur Leukocyte Esterase Urine RBC Urine WBC Ur Squamous Epith Cells Urine Bacteria Hyaline Casts Gastric Occult Blood Random Vancomycin Blood Type Antibody Screen 09/14/23 09/14/23 09/14/23 13:31 13:31 13:31 WBC RBC Hgb Hct MCV MCH MCHC RDW Plt Count MPV Immature Gran % (Auto) Cancelled Neut % (Auto) Cancelled Cancelled Lymph % (Auto) Cancelled Cancelled [place] % (Auto) Cancelled Eos % (Auto) Baso % (Auto) Lymph # (Auto) [place] # (Auto) Eos # (Auto) Baso # (Auto) Abs Immat Gran (auto) Absolute Neuts (auto) Absolute Nucleated RBC Nucleated RBC % (auto) Neutrophils % (Manual) Band Neutrophils % Lymphocytes % (Manual) Monocytes % (Manual) Eosinophils % (Manual) Metamyelocytes % Myelocytes % Promyelocytes % Abs Neuts (Manual) Lymphocytes # (Manual) Monocytes # (Manual) Eosinophils # (Manual) Basophils # (Manual) Metamyelocytes # Myelocytes # Promyelocytes # Nucleated RBCs Toxic Granulation Toxic Vacuolation Dohle Bodies Platelet Estimate Plt Morphology Comment RBC Morphology Hypochromasia Basophilic Stippling Macrocytosis Spherocytes Target Cells Tear Drop Cells Ovalocytes Stomatocytes [place] Cells Smear Path Review ESR Hold Purple Top O2 Saturation ABG pH at Pt Temp ABG pH (Temp Correct) ABG pCO2 at Pt Temp ABG pCO2 (Temp Corrct ABG pO2 at Pt Temp ABG pO2 (Temp Correct ABG HCO3 ABG Base Excess (Actual) VBG pH VBG pCO2 VBG pO2 VBG HCO3 VBG O2 Saturation VBG Base Excess Sodium Potassium Chloride Carbon Dioxide Anion Gap BUN Creatinine Estim Creat Clear Calc Estimated GFR POC Glucose Random Glucose Lactic Acid Lactic Acid F/U @ 2Hr Lactic Acid F/U @ 4Hr Calcium Phosphorus Magnesium Total Bilirubin AST ALT Alkaline Phosphatase C-Reactive Protein Total Protein Albumin Beta-Hydroxybutyrate Urine Color Urine Appearance Urine pH Ur Specific [place] Urine Protein Urine Glucose (UA) Urine Ketones Urine Blood Urine Nitrite Ur Leukocyte Esterase Urine RBC Urine WBC Ur Squamous Epith Cells Urine Bacteria Hyaline Casts Gastric Occult Blood Random Vancomycin Blood Type Antibody Screen 09/14/23 09/14/23 09/14/23 13:31 13:31 13:31 WBC RBC Hgb Hct MCV MCH MCHC RDW Plt Count MPV Immature Gran % (Auto) Neut % (Auto) Lymph % (Auto) [place] % (Auto) Cancelled Eos % (Auto) Cancelled Cancelled Baso % (Auto) Cancelled Cancelled Lymph # (Auto) Cancelled [place] # (Auto) Eos # (Auto) Baso # (Auto) Abs Immat Gran (auto) Absolute Neuts (auto) Absolute Nucleated RBC Nucleated RBC % (auto) Neutrophils % (Manual) Band Neutrophils % Lymphocytes % (Manual) Monocytes % (Manual) Eosinophils % (Manual) Metamyelocytes % Myelocytes % Promyelocytes % Abs Neuts (Manual) Lymphocytes # (Manual) Monocytes # (Manual) Eosinophils # (Manual) Basophils # (Manual) Metamyelocytes # Myelocytes # Promyelocytes # Nucleated RBCs Toxic Granulation Toxic Vacuolation Dohle Bodies Platelet Estimate Plt Morphology Comment RBC Morphology Hypochromasia Basophilic Stippling Macrocytosis Spherocytes Target Cells Tear Drop Cells Ovalocytes Stomatocytes [place] Cells Smear Path Review ESR Hold Purple Top O2 Saturation ABG pH at Pt Temp ABG pH (Temp Correct) ABG pCO2 at Pt Temp ABG pCO2 (Temp Corrct ABG pO2 at Pt Temp ABG pO2 (Temp Correct ABG HCO3 ABG Base Excess (Actual) VBG pH VBG pCO2 VBG pO2 VBG HCO3 VBG O2 Saturation VBG Base Excess Sodium Potassium Chloride Carbon Dioxide Anion Gap BUN Creatinine Estim Creat Clear Calc Estimated GFR POC Glucose Random Glucose Lactic Acid Lactic Acid F/U @ 2Hr Lactic Acid F/U @ 4Hr Calcium Phosphorus Magnesium Total Bilirubin AST ALT Alkaline Phosphatase C-Reactive Protein Total Protein Albumin Beta-Hydroxybutyrate Urine Color Urine Appearance Urine pH Ur Specific [place] Urine Protein Urine Glucose (UA) Urine Ketones Urine Blood Urine Nitrite Ur Leukocyte Esterase Urine RBC Urine WBC Ur Squamous Epith Cells Urine Bacteria Hyaline Casts Gastric Occult Blood Random Vancomycin Blood Type Antibody Screen 09/14/23 09/14/23 09/14/23 13:31 13:31 13:31 WBC RBC Hgb Hct MCV MCH MCHC RDW Plt Count MPV Immature Gran % (Auto) Neut % (Auto) Lymph % (Auto) [place] % (Auto) Eos % (Auto) Baso % (Auto) Lymph # (Auto) Cancelled [place] # (Auto) Cancelled Cancelled Eos # (Auto) Cancelled Cancelled Baso # (Auto) Cancelled Abs Immat Gran (auto) Absolute Neuts (auto) Absolute Nucleated RBC Nucleated RBC % (auto) Neutrophils % (Manual) Band Neutrophils % Lymphocytes % (Manual) Monocytes % (Manual) Eosinophils % (Manual) Metamyelocytes % Myelocytes % Promyelocytes % Abs Neuts (Manual) Lymphocytes # (Manual) Monocytes # (Manual) Eosinophils # (Manual) Basophils # (Manual) Metamyelocytes # Myelocytes # Promyelocytes # Nucleated RBCs Toxic Granulation Toxic Vacuolation Dohle Bodies Platelet Estimate Plt Morphology Comment RBC Morphology Hypochromasia Basophilic Stippling Macrocytosis Spherocytes Target Cells Tear Drop Cells Ovalocytes Stomatocytes [place] Cells Smear Path Review ESR Hold Purple Top O2 Saturation ABG pH at Pt Temp ABG pH (Temp Correct) ABG pCO2 at Pt Temp ABG pCO2 (Temp Corrct ABG pO2 at Pt Temp ABG pO2 (Temp Correct ABG HCO3 ABG Base Excess (Actual) VBG pH VBG pCO2 VBG pO2 VBG HCO3 VBG O2 Saturation VBG Base Excess Sodium Potassium Chloride Carbon Dioxide Anion Gap BUN Creatinine Estim Creat Clear Calc Estimated GFR POC Glucose Random Glucose Lactic Acid Lactic Acid F/U @ 2Hr Lactic Acid F/U @ 4Hr Calcium Phosphorus Magnesium Total Bilirubin AST ALT Alkaline Phosphatase C-Reactive Protein Total Protein Albumin Beta-Hydroxybutyrate Urine Color Urine Appearance Urine pH Ur Specific [place] Urine Protein Urine Glucose (UA) Urine Ketones Urine Blood Urine Nitrite Ur Leukocyte Esterase Urine RBC Urine WBC Ur Squamous Epith Cells Urine Bacteria Hyaline Casts Gastric Occult Blood Random Vancomycin Blood Type Antibody Screen 09/14/23 09/14/23 09/14/23 13:31 13:31 13:31 WBC RBC Hgb Hct MCV MCH MCHC RDW Plt Count MPV Immature Gran % (Auto) Neut % (Auto) Lymph % (Auto) [place] % (Auto) Eos % (Auto) Baso % (Auto) Lymph # (Auto) [place] # (Auto) Eos # (Auto) Baso # (Auto) Cancelled Abs Immat Gran (auto) Cancelled Cancelled Absolute Neuts (auto) Cancelled Cancelled Absolute Nucleated RBC 0.050 H Nucleated RBC % (auto) Neutrophils % (Manual) Band Neutrophils % Lymphocytes % (Manual) Monocytes % (Manual) Eosinophils % (Manual) Metamyelocytes % Myelocytes % Promyelocytes % Abs Neuts (Manual) Lymphocytes # (Manual) Monocytes # (Manual) Eosinophils # (Manual) Basophils # (Manual) Metamyelocytes # Myelocytes # Promyelocytes # Nucleated RBCs Toxic Granulation Toxic Vacuolation Dohle Bodies Platelet Estimate Plt Morphology Comment RBC Morphology Hypochromasia Basophilic Stippling Macrocytosis Spherocytes Target Cells Tear Drop Cells Ovalocytes Stomatocytes [place] Cells Smear Path Review ESR Hold Purple Top O2 Saturation ABG pH at Pt Temp ABG pH (Temp Correct) ABG pCO2 at Pt Temp ABG pCO2 (Temp Corrct ABG pO2 at Pt Temp ABG pO2 (Temp Correct ABG HCO3 ABG Base Excess (Actual) VBG pH VBG pCO2 VBG pO2 VBG HCO3 VBG O2 Saturation VBG Base Excess Sodium Potassium Chloride Carbon Dioxide Anion Gap BUN Creatinine Estim Creat Clear Calc Estimated GFR POC Glucose Random Glucose Lactic Acid Lactic Acid F/U @ 2Hr Lactic Acid F/U @ 4Hr Calcium Phosphorus Magnesium Total Bilirubin AST ALT Alkaline Phosphatase C-Reactive Protein Total Protein Albumin Beta-Hydroxybutyrate Urine Color Urine Appearance Urine pH Ur Specific [place] Urine Protein Urine Glucose (UA) Urine Ketones Urine Blood Urine Nitrite Ur Leukocyte Esterase Urine RBC Urine WBC Ur Squamous Epith Cells Urine Bacteria Hyaline Casts Gastric Occult Blood Random Vancomycin Blood Type Antibody Screen 09/14/23 09/14/23 09/14/23 13:31 13:31 13:31 WBC RBC Hgb Hct MCV MCH MCHC RDW Plt Count MPV Immature Gran % (Auto) Neut % (Auto) Lymph % (Auto) [place] % (Auto) Eos % (Auto) Baso % (Auto) Lymph # (Auto) [place] # (Auto) Eos # (Auto) Baso # (Auto) Abs Immat Gran (auto) Absolute Neuts (auto) Absolute Nucleated RBC Cancelled Nucleated RBC % (auto) 0.2 Cancelled Neutrophils % (Manual) 66 Band Neutrophils % 17 H Lymphocytes % (Manual) 6 L Monocytes % (Manual) 4 Eosinophils % (Manual) Metamyelocytes % 5 Myelocytes % 1 Promyelocytes % 1 Abs Neuts (Manual) 20.1 H Lymphocytes # (Manual) 1.5 Monocytes # (Manual) 1.0 Eosinophils # (Manual) Basophils # (Manual) Metamyelocytes # 1.2 Myelocytes # 0.2 Promyelocytes # 0.2 Nucleated RBCs 1 H Toxic Granulation Toxic Vacuolation PRESENT Dohle Bodies Platelet Estimate NORMAL Plt Morphology Comment NORMAL RBC Morphology NORMAL Hypochromasia Basophilic Stippling Macrocytosis Spherocytes Target Cells Tear Drop Cells Ovalocytes Stomatocytes [place] Cells Smear Path Review ESR Hold Purple Top SEE NOTE O2 Saturation ABG pH at Pt Temp ABG pH (Temp Correct) ABG pCO2 at Pt Temp ABG pCO2 (Temp Corrct ABG pO2 at Pt Temp ABG pO2 (Temp Correct ABG HCO3 ABG Base Excess (Actual) VBG pH VBG pCO2 VBG pO2 VBG HCO3 VBG O2 Saturation VBG Base Excess Sodium 134 L Cancelled Potassium 2.4 L* Chloride Carbon Dioxide Anion Gap BUN Creatinine Estim Creat Clear Calc Estimated GFR POC Glucose Random Glucose Lactic Acid Lactic Acid F/U @ 2Hr Lactic Acid F/U @ 4Hr Calcium Phosphorus Magnesium Total Bilirubin AST ALT Alkaline Phosphatase C-Reactive Protein Total Protein Albumin Beta-Hydroxybutyrate Urine Color Urine Appearance Urine pH Ur Specific [place] Urine Protein Urine Glucose (UA) Urine Ketones Urine Blood Urine Nitrite Ur Leukocyte Esterase Urine RBC Urine WBC Ur Squamous Epith Cells Urine Bacteria Hyaline Casts Gastric Occult Blood Random Vancomycin Blood Type Antibody Screen 09/14/23 09/14/23 09/14/23 13:31 13:31 13:31 WBC RBC Hgb Hct MCV MCH MCHC RDW Plt Count MPV Immature Gran % (Auto) Neut % (Auto) Lymph % (Auto) [place] % (Auto) Eos % (Auto) Baso % (Auto) Lymph # (Auto) [place] # (Auto) Eos # (Auto) Baso # (Auto) Abs Immat Gran (auto) Absolute Neuts (auto) Absolute Nucleated RBC Nucleated RBC % (auto) Neutrophils % (Manual) Band Neutrophils % Lymphocytes % (Manual) Monocytes % (Manual) Eosinophils % (Manual) Metamyelocytes % Myelocytes % Promyelocytes % Abs Neuts (Manual) Lymphocytes # (Manual) Monocytes # (Manual) Eosinophils # (Manual) Basophils # (Manual) Metamyelocytes # Myelocytes # Promyelocytes # Nucleated RBCs Toxic Granulation Toxic Vacuolation Dohle Bodies Platelet Estimate Plt Morphology Comment RBC Morphology Hypochromasia Basophilic Stippling Macrocytosis Spherocytes Target Cells Tear Drop Cells Ovalocytes Stomatocytes [place] Cells Smear Path Review ESR Hold Purple Top O2 Saturation ABG pH at Pt Temp ABG pH (Temp Correct) ABG pCO2 at Pt Temp ABG pCO2 (Temp Corrct ABG pO2 at Pt Temp ABG pO2 (Temp Correct ABG HCO3 ABG Base Excess (Actual) VBG pH VBG pCO2 VBG pO2 VBG HCO3 VBG O2 Saturation VBG Base Excess Sodium Potassium Cancelled Chloride 108 Cancelled Carbon Dioxide 8 L* Cancelled Anion Gap 20 BUN Creatinine Estim Creat Clear Calc Estimated GFR POC Glucose Random Glucose Lactic Acid Lactic Acid F/U @ 2Hr Lactic Acid F/U @ 4Hr Calcium Phosphorus Magnesium Total Bilirubin AST ALT Alkaline Phosphatase C-Reactive Protein Total Protein Albumin Beta-Hydroxybutyrate Urine Color Urine Appearance Urine pH Ur Specific [place] Urine Protein Urine Glucose (UA) Urine Ketones Urine Blood Urine Nitrite Ur Leukocyte Esterase Urine RBC Urine WBC Ur Squamous Epith Cells Urine Bacteria Hyaline Casts Gastric Occult Blood Random Vancomycin Blood Type Antibody Screen 09/14/23 09/14/23 09/14/23 13:31 13:31 13:31 WBC RBC Hgb Hct MCV MCH MCHC RDW Plt Count MPV Immature Gran % (Auto) Neut % (Auto) Lymph % (Auto) [place] % (Auto) Eos % (Auto) Baso % (Auto) Lymph # (Auto) [place] # (Auto) Eos # (Auto) Baso # (Auto) Abs Immat Gran (auto) Absolute Neuts (auto) Absolute Nucleated RBC Nucleated RBC % (auto) Neutrophils % (Manual) Band Neutrophils % Lymphocytes % (Manual) Monocytes % (Manual) Eosinophils % (Manual) Metamyelocytes % Myelocytes % Promyelocytes % Abs Neuts (Manual) Lymphocytes # (Manual) Monocytes # (Manual) Eosinophils # (Manual) Basophils # (Manual) Metamyelocytes # Myelocytes # Promyelocytes # Nucleated RBCs Toxic Granulation Toxic Vacuolation Dohle Bodies Platelet Estimate Plt Morphology Comment RBC Morphology Hypochromasia Basophilic Stippling Macrocytosis Spherocytes Target Cells Tear Drop Cells Ovalocytes Stomatocytes [place] Cells Smear Path Review ESR Hold Purple Top O2 Saturation ABG pH at Pt Temp ABG pH (Temp Correct) ABG pCO2 at Pt Temp ABG pCO2 (Temp Corrct ABG pO2 at Pt Temp ABG pO2 (Temp Correct ABG HCO3 ABG Base Excess (Actual) VBG pH VBG pCO2 VBG pO2 VBG HCO3 VBG O2 Saturation VBG Base Excess Sodium Potassium Chloride Carbon Dioxide Anion Gap Cancelled BUN 38 H Cancelled Creatinine 1.73 H Cancelled Estim Creat Clear Calc 72.3 Estimated GFR POC Glucose Random Glucose Lactic Acid Lactic Acid F/U @ 2Hr Lactic Acid F/U @ 4Hr Calcium Phosphorus Magnesium Total Bilirubin AST ALT Alkaline Phosphatase C-Reactive Protein Total Protein Albumin Beta-Hydroxybutyrate Urine Color Urine Appearance Urine pH Ur Specific [place] Urine Protein Urine Glucose (UA) Urine Ketones Urine Blood Urine Nitrite Ur Leukocyte Esterase Urine RBC Urine WBC Ur Squamous Epith Cells Urine Bacteria Hyaline Casts Gastric Occult Blood Random Vancomycin Blood Type Antibody Screen 09/14/23 09/14/23 09/14/23 13:31 13:31 13:31 WBC RBC Hgb Hct MCV MCH MCHC RDW Plt Count MPV Immature Gran % (Auto) Neut % (Auto) Lymph % (Auto) [place] % (Auto) Eos % (Auto) Baso % (Auto) Lymph # (Auto) [place] # (Auto) Eos # (Auto) Baso # (Auto) Abs Immat Gran (auto) Absolute Neuts (auto) Absolute Nucleated RBC Nucleated RBC % (auto) Neutrophils % (Manual) Band Neutrophils % Lymphocytes % (Manual) Monocytes % (Manual) Eosinophils % (Manual) Metamyelocytes % Myelocytes % Promyelocytes % Abs Neuts (Manual) Lymphocytes # (Manual) Monocytes # (Manual) Eosinophils # (Manual) Basophils # (Manual) Metamyelocytes # Myelocytes # Promyelocytes # Nucleated RBCs Toxic Granulation Toxic Vacuolation Dohle Bodies Platelet Estimate Plt Morphology Comment RBC Morphology Hypochromasia Basophilic Stippling Macrocytosis Spherocytes Target Cells Tear Drop Cells Ovalocytes Stomatocytes [place] Cells Smear Path Review ESR Hold Purple Top O2 Saturation ABG pH at Pt Temp ABG pH (Temp Correct) ABG pCO2 at Pt Temp ABG pCO2 (Temp Corrct ABG pO2 at Pt Temp ABG pO2 (Temp Correct ABG HCO3 ABG Base Excess (Actual) VBG pH VBG pCO2 VBG pO2 VBG HCO3 VBG O2 Saturation VBG Base Excess Sodium Potassium Chloride Carbon Dioxide Anion Gap BUN Creatinine Estim Creat Clear Calc Cancelled Estimated GFR 43 Cancelled POC Glucose Random Glucose 516 H* Cancelled Lactic Acid Lactic Acid F/U @ 2Hr 2.2 H* Lactic Acid F/U @ 4Hr Calcium 10.1 Phosphorus Magnesium Total Bilirubin AST ALT Alkaline Phosphatase C-Reactive Protein Total Protein Albumin Beta-Hydroxybutyrate Urine Color Urine Appearance Urine pH Ur Specific [place] Urine Protein Urine Glucose (UA) Urine Ketones Urine Blood Urine Nitrite Ur Leukocyte Esterase Urine RBC Urine WBC Ur Squamous Epith Cells Urine Bacteria Hyaline Casts Gastric Occult Blood Random Vancomycin Blood Type Antibody Screen 09/14/23 09/14/23 09/14/23 13:31 13:31 13:31 WBC RBC Hgb Hct MCV MCH MCHC RDW Plt Count MPV Immature Gran % (Auto) Neut % (Auto) Lymph % (Auto) [place] % (Auto) Eos % (Auto) Baso % (Auto) Lymph # (Auto) [place] # (Auto) Eos # (Auto) Baso # (Auto) Abs Immat Gran (auto) Absolute Neuts (auto) Absolute Nucleated RBC Nucleated RBC % (auto) Neutrophils % (Manual) Band Neutrophils % Lymphocytes % (Manual) Monocytes % (Manual) Eosinophils % (Manual) Metamyelocytes % Myelocytes % Promyelocytes % Abs Neuts (Manual) Lymphocytes # (Manual) Monocytes # (Manual) Eosinophils # (Manual) Basophils # (Manual) Metamyelocytes # Myelocytes # Promyelocytes # Nucleated RBCs Toxic Granulation Toxic Vacuolation Dohle Bodies Platelet Estimate Plt Morphology Comment RBC Morphology Hypochromasia Basophilic Stippling Macrocytosis Spherocytes Target Cells Tear Drop Cells Ovalocytes Stomatocytes [place] Cells Smear Path Review ESR Hold Purple Top O2 Saturation ABG pH at Pt Temp ABG pH (Temp Correct) ABG pCO2 at Pt Temp ABG pCO2 (Temp Corrct ABG pO2 at Pt Temp ABG pO2 (Temp Correct ABG HCO3 ABG Base Excess (Actual) VBG pH VBG pCO2 VBG pO2 VBG HCO3 VBG O2 Saturation VBG Base Excess Sodium Potassium Chloride Carbon Dioxide Anion Gap BUN Creatinine Estim Creat Clear Calc Estimated GFR POC Glucose Random Glucose Lactic Acid Lactic Acid F/U @ 2Hr Lactic Acid F/U @ 4Hr Calcium Cancelled Phosphorus 2.2 L Magnesium 2.5 Total Bilirubin 0.2 Cancelled AST 10 Cancelled ALT 16 Alkaline Phosphatase C-Reactive Protein Total Protein Albumin Beta-Hydroxybutyrate Urine Color Urine Appearance Urine pH Ur Specific [place] Urine Protein Urine Glucose (UA) Urine Ketones Urine Blood Urine Nitrite Ur Leukocyte Esterase Urine RBC Urine WBC Ur Squamous Epith Cells Urine Bacteria Hyaline Casts Gastric Occult Blood Random Vancomycin Blood Type Antibody Screen 09/14/23 09/14/23 09/14/23 13:31 13:31 13:31 WBC RBC Hgb Hct MCV MCH MCHC RDW Plt Count MPV Immature Gran % (Auto) Neut % (Auto) Lymph % (Auto) [place] % (Auto) Eos % (Auto) Baso % (Auto) Lymph # (Auto) [place] # (Auto) Eos # (Auto) Baso # (Auto) Abs Immat Gran (auto) Absolute Neuts (auto) Absolute Nucleated RBC Nucleated RBC % (auto) Neutrophils % (Manual) Band Neutrophils % Lymphocytes % (Manual) Monocytes % (Manual) Eosinophils % (Manual) Metamyelocytes % Myelocytes % Promyelocytes % Abs Neuts (Manual) Lymphocytes # (Manual) Monocytes # (Manual) Eosinophils # (Manual) Basophils # (Manual) Metamyelocytes # Myelocytes # Promyelocytes # Nucleated RBCs Toxic Granulation Toxic Vacuolation Dohle Bodies Platelet Estimate Plt Morphology Comment RBC Morphology Hypochromasia Basophilic Stippling Macrocytosis Spherocytes Target Cells Tear Drop Cells Ovalocytes Stomatocytes [place] Cells Smear Path Review ESR Hold Purple Top O2 Saturation ABG pH at Pt Temp ABG pH (Temp Correct) ABG pCO2 at Pt Temp ABG pCO2 (Temp Corrct ABG pO2 at Pt Temp ABG pO2 (Temp Correct ABG HCO3 ABG Base Excess (Actual) VBG pH VBG pCO2 VBG pO2 VBG HCO3 VBG O2 Saturation VBG Base Excess Sodium Potassium Chloride Carbon Dioxide Anion Gap BUN Creatinine Estim Creat Clear Calc Estimated GFR POC Glucose Random Glucose Lactic Acid Lactic Acid F/U @ 2Hr Lactic Acid F/U @ 4Hr Calcium Phosphorus Magnesium Total Bilirubin AST ALT Cancelled Alkaline Phosphatase 130 H Cancelled C-Reactive Protein Total Protein 6.1 L Cancelled Albumin 2.3 L Beta-Hydroxybutyrate Urine Color Urine Appearance Urine pH Ur Specific [place] Urine Protein Urine Glucose (UA) Urine Ketones Urine Blood Urine Nitrite Ur Leukocyte Esterase Urine RBC Urine WBC Ur Squamous Epith Cells Urine Bacteria Hyaline Casts Gastric Occult Blood Random Vancomycin Blood Type Antibody Screen 09/14/23 09/14/23 09/14/23 13:31 13:35 16:36 WBC 24.8 H RBC 3.98 L Hgb 11.4 L Hct 32.3 L MCV 81.2 MCH 28.6 MCHC 35.3 RDW 15.9 Plt Count 326 MPV 9.1 L Immature Gran % (Auto) Cancelled Neut % (Auto) Cancelled Lymph % (Auto) Cancelled [place] % (Auto) Cancelled Eos % (Auto) Cancelled Baso % (Auto) Cancelled Lymph # (Auto) Cancelled [place] # (Auto) Cancelled Eos # (Auto) Cancelled Baso # (Auto) Cancelled Abs Immat Gran (auto) Cancelled Absolute Neuts (auto) Cancelled Absolute Nucleated RBC 0.050 H Nucleated RBC % (auto) 0.2 Neutrophils % (Manual) 60 Band Neutrophils % 23 H Lymphocytes % (Manual) 8 L Monocytes % (Manual) 3 Eosinophils % (Manual) Metamyelocytes % 4 Myelocytes % 2 Promyelocytes % Abs Neuts (Manual) 20.6 H Lymphocytes # (Manual) 2.0 Monocytes # (Manual) 0.7 Eosinophils # (Manual) Basophils # (Manual) Metamyelocytes # 1.0 Myelocytes # 0.5 Promyelocytes # Nucleated RBCs 1 H Toxic Granulation Toxic Vacuolation Dohle Bodies Platelet Estimate NORMAL Plt Morphology Comment NORMAL RBC Morphology NORMAL Hypochromasia Basophilic Stippling Macrocytosis Spherocytes Target Cells Tear Drop Cells Ovalocytes Stomatocytes [place] Cells Smear Path Review ESR Hold Purple Top O2 Saturation ABG pH at Pt Temp ABG pH (Temp Correct) ABG pCO2 at Pt Temp ABG pCO2 (Temp Corrct ABG pO2 at Pt Temp ABG pO2 (Temp Correct ABG HCO3 ABG Base Excess (Actual) VBG pH 7.18 L* VBG pCO2 16 VBG pO2 76 VBG HCO3 6 L VBG O2 Saturation 91.0 VBG Base Excess -19.2 Sodium 138 Potassium 2.7 L* Chloride 111 H Carbon Dioxide 16 L Anion Gap 14 BUN 34 H Creatinine 1.30 Estim Creat Clear Calc 94.9 Estimated GFR 59 POC Glucose Random Glucose 323 H Lactic Acid Lactic Acid F/U @ 2Hr Lactic Acid F/U @ 4Hr Calcium 9.4 D Phosphorus Magnesium Total Bilirubin AST ALT Alkaline Phosphatase C-Reactive Protein Total Protein Albumin Cancelled Beta-Hydroxybutyrate Urine Color Urine Appearance Urine pH Ur Specific [place] Urine Protein Urine Glucose (UA) Urine Ketones Urine Blood Urine Nitrite Ur Leukocyte Esterase Urine RBC Urine WBC Ur Squamous Epith Cells Urine Bacteria Hyaline Casts Gastric Occult Blood Random Vancomycin Blood Type A Positive Antibody Screen NEGATIVE 09/14/23 09/14/23 09/14/23 16:36 16:37 17:31 WBC RBC Hgb Hct MCV MCH MCHC RDW Plt Count MPV Immature Gran % (Auto) Neut % (Auto) Lymph % (Auto) [place] % (Auto) Eos % (Auto) Baso % (Auto) Lymph # (Auto) [place] # (Auto) Eos # (Auto) Baso # (Auto) Abs Immat Gran (auto) Absolute Neuts (auto) Absolute Nucleated RBC Nucleated RBC % (auto) Neutrophils % (Manual) Band Neutrophils % Lymphocytes % (Manual) Monocytes % (Manual) Eosinophils % (Manual) Metamyelocytes % Myelocytes % Promyelocytes % Abs Neuts (Manual) Lymphocytes # (Manual) Monocytes # (Manual) Eosinophils # (Manual) Basophils # (Manual) Metamyelocytes # Myelocytes # Promyelocytes # Nucleated RBCs Toxic Granulation Toxic Vacuolation Dohle Bodies Platelet Estimate Plt Morphology Comment RBC Morphology Hypochromasia Basophilic Stippling Macrocytosis Spherocytes Target Cells Tear Drop Cells Ovalocytes Stomatocytes [place] Cells Smear Path Review ESR Hold Purple Top O2 Saturation ABG pH at Pt Temp ABG pH (Temp Correct) ABG pCO2 at Pt Temp ABG pCO2 (Temp Corrct ABG pO2 at Pt Temp ABG pO2 (Temp Correct ABG HCO3 ABG Base Excess (Actual) VBG pH VBG pCO2 VBG pO2 VBG HCO3 VBG O2 Saturation VBG Base Excess Sodium Potassium Chloride Carbon Dioxide Anion Gap BUN Creatinine Estim Creat Clear Calc Estimated GFR POC Glucose 270 H Random Glucose Lactic Acid Lactic Acid F/U @ 2Hr Lactic Acid F/U @ 4Hr 2.2 H* Calcium 9.5 Phosphorus 0.9 L* Magnesium 2.2 Total Bilirubin AST ALT Alkaline Phosphatase C-Reactive Protein Total Protein Albumin Beta-Hydroxybutyrate Urine Color Urine Appearance Urine pH Ur Specific [place] Urine Protein Urine Glucose (UA) Urine Ketones Urine Blood Urine Nitrite Ur Leukocyte Esterase Urine RBC Urine WBC Ur Squamous Epith Cells Urine Bacteria Hyaline Casts Gastric Occult Blood Random Vancomycin Blood Type Antibody Screen 09/14/23 09/14/23 09/14/23 18:24 18:31 19:39 WBC RBC Hgb Hct MCV MCH MCHC RDW Plt Count MPV Immature Gran % (Auto) Neut % (Auto) Lymph % (Auto) [place] % (Auto) Eos % (Auto) Baso % (Auto) Lymph # (Auto) [place] # (Auto) Eos # (Auto) Baso # (Auto) Abs Immat Gran (auto) Absolute Neuts (auto) Absolute Nucleated RBC Nucleated RBC % (auto) Neutrophils % (Manual) Band Neutrophils % Lymphocytes % (Manual) Monocytes % (Manual) Eosinophils % (Manual) Metamyelocytes % Myelocytes % Promyelocytes % Abs Neuts (Manual) Lymphocytes # (Manual) Monocytes # (Manual) Eosinophils # (Manual) Basophils # (Manual) Metamyelocytes # Myelocytes # Promyelocytes # Nucleated RBCs Toxic Granulation Toxic Vacuolation Dohle Bodies Platelet Estimate Plt Morphology Comment RBC Morphology Hypochromasia Basophilic Stippling Macrocytosis Spherocytes Target Cells Tear Drop Cells Ovalocytes Stomatocytes [place] Cells Smear Path Review ESR Hold Purple Top O2 Saturation 94.0 ABG pH at Pt Temp 7.18 L* ABG pH (Temp Correct) ABG pCO2 at Pt Temp 39 ABG pCO2 (Temp Corrct ABG pO2 at Pt Temp 105 ABG pO2 (Temp Correct ABG HCO3 15 L ABG Base Excess (Actual) -12.4 VBG pH VBG pCO2 VBG pO2 VBG HCO3 VBG O2 Saturation VBG Base Excess Sodium 140 Potassium 2.5 L* Chloride 115 H Carbon Dioxide 16 L Anion Gap 12 BUN 34 H Creatinine 1.34 Estim Creat Clear Calc 92.0 Estimated GFR 57 POC Glucose 267 H Random Glucose 268 H Lactic Acid Lactic Acid F/U @ 2Hr Lactic Acid F/U @ 4Hr Calcium 9.1 Phosphorus 2.1 L Magnesium 2.2 Total Bilirubin 0.2 AST 13 ALT 11 Alkaline Phosphatase 110 C-Reactive Protein Total Protein 4.8 L Albumin 1.8 L Beta-Hydroxybutyrate Urine Color Urine Appearance Urine pH Ur Specific [place] Urine Protein Urine Glucose (UA) Urine Ketones Urine Blood Urine Nitrite Ur Leukocyte Esterase Urine RBC Urine WBC Ur Squamous Epith Cells Urine Bacteria Hyaline Casts Gastric Occult Blood Random Vancomycin Blood Type Antibody Screen 09/14/23 09/14/23 09/14/23 19:42 21:01 22:11 WBC RBC Hgb Hct MCV MCH MCHC RDW Plt Count MPV Immature Gran % (Auto) Neut % (Auto) Lymph % (Auto) [place] % (Auto) Eos % (Auto) Baso % (Auto) Lymph # (Auto) [place] # (Auto) Eos # (Auto) Baso # (Auto) Abs Immat Gran (auto) Absolute Neuts (auto) Absolute Nucleated RBC Nucleated RBC % (auto) Neutrophils % (Manual) Band Neutrophils % Lymphocytes % (Manual) Monocytes % (Manual) Eosinophils % (Manual) Metamyelocytes % Myelocytes % Promyelocytes % Abs Neuts (Manual) Lymphocytes # (Manual) Monocytes # (Manual) Eosinophils # (Manual) Basophils # (Manual) Metamyelocytes # Myelocytes # Promyelocytes # Nucleated RBCs Toxic Granulation Toxic Vacuolation Dohle Bodies Platelet Estimate Plt Morphology Comment RBC Morphology Hypochromasia Basophilic Stippling Macrocytosis Spherocytes Target Cells Tear Drop Cells Ovalocytes Stomatocytes [place] Cells Smear Path Review ESR Hold Purple Top O2 Saturation ABG pH at Pt Temp ABG pH (Temp Correct) ABG pCO2 at Pt Temp ABG pCO2 (Temp Corrct ABG pO2 at Pt Temp ABG pO2 (Temp Correct ABG HCO3 ABG Base Excess (Actual) VBG pH 7.29 L VBG pCO2 31 VBG pO2 68 VBG HCO3 15 L VBG O2 Saturation 89.0 VBG Base Excess -10.1 Sodium Potassium Chloride Carbon Dioxide Anion Gap BUN Creatinine Estim Creat Clear Calc Estimated GFR POC Glucose 296 H 350 H* Random Glucose Lactic Acid Lactic Acid F/U @ 2Hr Lactic Acid F/U @ 4Hr Calcium Phosphorus Magnesium Total Bilirubin AST ALT Alkaline Phosphatase C-Reactive Protein Total Protein Albumin Beta-Hydroxybutyrate Urine Color Urine Appearance Urine pH Ur Specific [place] Urine Protein Urine Glucose (UA) Urine Ketones Urine Blood Urine Nitrite Ur Leukocyte Esterase Urine RBC Urine WBC Ur Squamous Epith Cells Urine Bacteria Hyaline Casts Gastric Occult Blood Random Vancomycin Blood Type Antibody Screen 09/14/23 09/15/23 09/15/23 22:58 00:06 00:56 WBC RBC Hgb Hct MCV MCH MCHC RDW Plt Count MPV Immature Gran % (Auto) Neut % (Auto) Lymph % (Auto) [place] % (Auto) Eos % (Auto) Baso % (Auto) Lymph # (Auto) [place] # (Auto) Eos # (Auto) Baso # (Auto) Abs Immat Gran (auto) Absolute Neuts (auto) Absolute Nucleated RBC Nucleated RBC % (auto) Neutrophils % (Manual) Band Neutrophils % Lymphocytes % (Manual) Monocytes % (Manual) Eosinophils % (Manual) Metamyelocytes % Myelocytes % Promyelocytes % Abs Neuts (Manual) Lymphocytes # (Manual) Monocytes # (Manual) Eosinophils # (Manual) Basophils # (Manual) Metamyelocytes # Myelocytes # Promyelocytes # Nucleated RBCs Toxic Granulation Toxic Vacuolation Dohle Bodies Platelet Estimate Plt Morphology Comment RBC Morphology Hypochromasia Basophilic Stippling Macrocytosis Spherocytes Target Cells Tear Drop Cells Ovalocytes Stomatocytes [place] Cells Smear Path Review ESR Hold Purple Top O2 Saturation ABG pH at Pt Temp ABG pH (Temp Correct) ABG pCO2 at Pt Temp ABG pCO2 (Temp Corrct ABG pO2 at Pt Temp ABG pO2 (Temp Correct ABG HCO3 ABG Base Excess (Actual) VBG pH VBG pCO2 VBG pO2 VBG HCO3 VBG O2 Saturation VBG Base Excess Sodium 141 Potassium 2.4 L* Chloride 114 H Carbon Dioxide 17 L Anion Gap 12 BUN 32 H Creatinine 1.29 Estim Creat Clear Calc 95.6 Estimated GFR 60 POC Glucose 371 H* 351 H* Random Glucose 326 H Lactic Acid Lactic Acid F/U @ 2Hr Lactic Acid F/U @ 4Hr Calcium 9.2 Phosphorus 1.9 L Magnesium 2.1 Total Bilirubin AST ALT Alkaline Phosphatase C-Reactive Protein Total Protein Albumin Beta-Hydroxybutyrate Urine Color Urine Appearance Urine pH Ur Specific [place] Urine Protein Urine Glucose (UA) Urine Ketones Urine Blood Urine Nitrite Ur Leukocyte Esterase Urine RBC Urine WBC Ur Squamous Epith Cells Urine Bacteria Hyaline Casts Gastric Occult Blood Random Vancomycin Blood Type Antibody Screen 09/15/23 09/15/23 09/15/23 01:08 02:06 03:00 WBC RBC Hgb Hct MCV MCH MCHC RDW Plt Count MPV Immature Gran % (Auto) Neut % (Auto) Lymph % (Auto) [place] % (Auto) Eos % (Auto) Baso % (Auto) Lymph # (Auto) [place] # (Auto) Eos # (Auto) Baso # (Auto) Abs Immat Gran (auto) Absolute Neuts (auto) Absolute Nucleated RBC Nucleated RBC % (auto) Neutrophils % (Manual) Band Neutrophils % Lymphocytes % (Manual) Monocytes % (Manual) Eosinophils % (Manual) Metamyelocytes % Myelocytes % Promyelocytes % Abs Neuts (Manual) Lymphocytes # (Manual) Monocytes # (Manual) Eosinophils # (Manual) Basophils # (Manual) Metamyelocytes # Myelocytes # Promyelocytes # Nucleated RBCs Toxic Granulation Toxic Vacuolation Dohle Bodies Platelet Estimate Plt Morphology Comment RBC Morphology Hypochromasia Basophilic Stippling Macrocytosis Spherocytes Target Cells Tear Drop Cells Ovalocytes Stomatocytes [place] Cells Smear Path Review ESR Hold Purple Top O2 Saturation ABG pH at Pt Temp ABG pH (Temp Correct) ABG pCO2 at Pt Temp ABG pCO2 (Temp Corrct ABG pO2 at Pt Temp ABG pO2 (Temp Correct ABG HCO3 ABG Base Excess (Actual) VBG pH VBG pCO2 VBG pO2 VBG HCO3 VBG O2 Saturation VBG Base Excess Sodium Potassium Chloride Carbon Dioxide Anion Gap BUN Creatinine Estim Creat Clear Calc Estimated GFR POC Glucose 300 H 292 H 306 H Random Glucose Lactic Acid Lactic Acid F/U @ 2Hr Lactic Acid F/U @ 4Hr Calcium Phosphorus Magnesium Total Bilirubin AST ALT Alkaline Phosphatase C-Reactive Protein Total Protein Albumin Beta-Hydroxybutyrate Urine Color Urine Appearance Urine pH Ur Specific [place] Urine Protein Urine Glucose (UA) Urine Ketones Urine Blood Urine Nitrite Ur Leukocyte Esterase Urine RBC Urine WBC Ur Squamous Epith Cells Urine Bacteria Hyaline Casts Gastric Occult Blood Random Vancomycin Blood Type Antibody Screen 09/15/23 09/15/23 09/15/23 04:11 04:22 04:23 WBC 22.7 H RBC 2.77 L D Hgb 8.1 L D Hct 22.7 L D MCV 81.9 MCH 29.2 MCHC 35.7 RDW 16.5 H Plt Count 283 MPV 9.0 L Immature Gran % (Auto) Cancelled Neut % (Auto) Cancelled Lymph % (Auto) Cancelled [place] % (Auto) Cancelled Eos % (Auto) Cancelled Baso % (Auto) Cancelled Lymph # (Auto) Cancelled [place] # (Auto) Cancelled Eos # (Auto) Cancelled Baso # (Auto) Cancelled Abs Immat Gran (auto) Cancelled Absolute Neuts (auto) Cancelled Absolute Nucleated RBC 0.110 H Nucleated RBC % (auto) 0.5 H Neutrophils % (Manual) 46 Band Neutrophils % 34 H Lymphocytes % (Manual) 3 L Monocytes % (Manual) 3 Eosinophils % (Manual) Metamyelocytes % 8 Myelocytes % 6 Promyelocytes % Abs Neuts (Manual) 18.2 H Lymphocytes # (Manual) 0.7 L Monocytes # (Manual) 0.7 Eosinophils # (Manual) Basophils # (Manual) Metamyelocytes # 1.8 Myelocytes # 1.4 Promyelocytes # Nucleated RBCs Toxic Granulation PRESENT Toxic Vacuolation [place]ohle Bodies Platelet Estimate NORMAL Plt Morphology Comment NORMAL RBC Morphology NORMAL Hypochromasia Basophilic Stippling Macrocytosis Spherocytes Target Cells Tear Drop Cells Ovalocytes Stomatocytes [place] Cells Smear Path Review ESR Hold Purple Top O2 Saturation Cancelled ABG pH at Pt Temp ABG pH (Temp Correct) ABG pCO2 at Pt Temp ABG pCO2 (Temp Corrct ABG pO2 at Pt Temp ABG pO2 (Temp Correct ABG HCO3 ABG Base Excess (Actual) VBG pH VBG pCO2 VBG pO2 VBG HCO3 VBG O2 Saturation VBG Base Excess Sodium 143 Potassium 2.8 L* Chloride 114 H Carbon Dioxide 18 L Anion Gap 14 BUN 29 H Creatinine 1.15 Estim Creat Clear Calc 107.2 Estimated GFR > 60 POC Glucose 289 H Random Glucose 300 H Lactic Acid Lactic Acid F/U @ 2Hr Lactic Acid F/U @ 4Hr Calcium 9.6 Phosphorus 1.6 L Magnesium 2.1 Total Bilirubin AST ALT Alkaline Phosphatase C-Reactive Protein Total Protein Albumin Beta-Hydroxybutyrate Urine Color Urine Appearance Urine pH Ur Specific [place] Urine Protein Urine Glucose (UA) Urine Ketones Urine Blood Urine Nitrite Ur Leukocyte Esterase Urine RBC Urine WBC Ur Squamous Epith Cells Urine Bacteria Hyaline Casts Gastric Occult Blood Random Vancomycin Blood Type Antibody Screen 09/15/23 09/15/23 09/15/23 04:23 04:23 04:23 WBC RBC Hgb Hct MCV MCH MCHC RDW Plt Count MPV Immature Gran % (Auto) Neut % (Auto) Lymph % (Auto) [place] % (Auto) Eos % (Auto) Baso % (Auto) Lymph # (Auto) [place] # (Auto) Eos # (Auto) Baso # (Auto) Abs Immat Gran (auto) Absolute Neuts (auto) Absolute Nucleated RBC Nucleated RBC % (auto) Neutrophils % (Manual) Band Neutrophils % Lymphocytes % (Manual) Monocytes % (Manual) Eosinophils % (Manual) Metamyelocytes % Myelocytes % Promyelocytes % Abs Neuts (Manual) Lymphocytes # (Manual) Monocytes # (Manual) Eosinophils # (Manual) Basophils # (Manual) Metamyelocytes # Myelocytes # Promyelocytes # Nucleated RBCs Toxic Granulation Toxic Vacuolation Dohle Bodies Platelet Estimate Plt Morphology Comment RBC Morphology Hypochromasia Basophilic Stippling Macrocytosis Spherocytes Target Cells Tear Drop Cells Ovalocytes Stomatocytes [place] Cells Smear Path Review ESR Hold Purple Top O2 Saturation 94.0 ABG pH at Pt Temp Cancelled 7.36 ABG pH (Temp Correct) Cancelled ABG pCO2 at Pt Temp Cancelled 33 ABG pCO2 (Temp Corrct Cancelled ABG pO2 at Pt Temp Cancelled ABG pO2 (Temp Correct ABG HCO3 ABG Base Excess (Actual) VBG pH VBG pCO2 VBG pO2 VBG HCO3 VBG O2 Saturation VBG Base Excess Sodium Potassium Chloride Carbon Dioxide Anion Gap BUN Creatinine Estim Creat Clear Calc Estimated GFR POC Glucose Random Glucose Lactic Acid Lactic Acid F/U @ 2Hr Lactic Acid F/U @ 4Hr Calcium Phosphorus Magnesium Total Bilirubin AST ALT Alkaline Phosphatase C-Reactive Protein Total Protein Albumin Beta-Hydroxybutyrate Urine Color Urine Appearance Urine pH Ur Specific [place] Urine Protein Urine Glucose (UA) Urine Ketones Urine Blood Urine Nitrite Ur Leukocyte Esterase Urine RBC Urine WBC Ur Squamous Epith Cells Urine Bacteria Hyaline Casts Gastric Occult Blood Random Vancomycin Blood Type Antibody Screen 09/15/23 09/15/23 09/15/23 04:23 04:23 04:23 WBC RBC Hgb Hct MCV MCH MCHC RDW Plt Count MPV Immature Gran % (Auto) Neut % (Auto) Lymph % (Auto) [place] % (Auto) Eos % (Auto) Baso % (Auto) Lymph # (Auto) [place] # (Auto) Eos # (Auto) Baso # (Auto) Abs Immat Gran (auto) Absolute Neuts (auto) Absolute Nucleated RBC Nucleated RBC % (auto) Neutrophils % (Manual) Band Neutrophils % Lymphocytes % (Manual) Monocytes % (Manual) Eosinophils % (Manual) Metamyelocytes % Myelocytes % Promyelocytes % Abs Neuts (Manual) Lymphocytes # (Manual) Monocytes # (Manual) Eosinophils # (Manual) Basophils # (Manual) Metamyelocytes # Myelocytes # Promyelocytes # Nucleated RBCs Toxic Granulation Toxic Vacuolation Dohle Bodies Platelet Estimate Plt Morphology Comment RBC Morphology Hypochromasia Basophilic Stippling Macrocytosis Spherocytes Target Cells Tear Drop Cells Ovalocytes Stomatocytes [place] Cells Smear Path Review ESR Hold Purple Top O2 Saturation ABG pH at Pt Temp ABG pH (Temp Correct) ABG pCO2 at Pt Temp ABG pCO2 (Temp Corrct ABG pO2 at Pt Temp 84 ABG pO2 (Temp Correct Cancelled ABG HCO3 Cancelled 19 L ABG Base Excess (Actual) Cancelled -5.4 VBG pH VBG pCO2 VBG pO2 VBG HCO3 VBG O2 Saturation VBG Base Excess Sodium Potassium Chloride Carbon Dioxide Anion Gap BUN Creatinine Estim Creat Clear Calc Estimated GFR POC Glucose Random Glucose Lactic Acid Lactic Acid F/U @ 2Hr Lactic Acid F/U @ 4Hr Calcium Phosphorus Magnesium Total Bilirubin AST ALT Alkaline Phosphatase C-Reactive Protein Total Protein Albumin Beta-Hydroxybutyrate Urine Color Urine Appearance Urine pH Ur Specific [place] Urine Protein Urine Glucose (UA) Urine Ketones Urine Blood Urine Nitrite Ur Leukocyte Esterase Urine RBC Urine WBC Ur Squamous Epith Cells Urine Bacteria Hyaline Casts Gastric Occult Blood Random Vancomycin Blood Type Antibody Screen 09/15/23 09/15/23 09/15/23 05:04 05:55 07:07 WBC RBC Hgb Hct MCV MCH MCHC RDW Plt Count MPV Immature Gran % (Auto) Neut % (Auto) Lymph % (Auto) [place] % (Auto) Eos % (Auto) Baso % (Auto) Lymph # (Auto) [place] # (Auto) Eos # (Auto) Baso # (Auto) Abs Immat Gran (auto) Absolute Neuts (auto) Absolute Nucleated RBC Nucleated RBC % (auto) Neutrophils % (Manual) Band Neutrophils % Lymphocytes % (Manual) Monocytes % (Manual) Eosinophils % (Manual) Metamyelocytes % Myelocytes % Promyelocytes % Abs Neuts (Manual) Lymphocytes # (Manual) Monocytes # (Manual) Eosinophils # (Manual) Basophils # (Manual) Metamyelocytes # Myelocytes # Promyelocytes # Nucleated RBCs Toxic Granulation Toxic Vacuolation Dohle Bodies Platelet Estimate Plt Morphology Comment RBC Morphology Hypochromasia Basophilic Stippling Macrocytosis Spherocytes Target Cells Tear Drop Cells Ovalocytes Stomatocytes [place] Cells Smear Path Review ESR Hold Purple Top O2 Saturation ABG pH at Pt Temp ABG pH (Temp Correct) ABG pCO2 at Pt Temp ABG pCO2 (Temp Corrct ABG pO2 at Pt Temp ABG pO2 (Temp Correct ABG HCO3 ABG Base Excess (Actual) VBG pH VBG pCO2 VBG pO2 VBG HCO3 VBG O2 Saturation VBG Base Excess Sodium Potassium Chloride Carbon Dioxide Anion Gap BUN Creatinine Estim Creat Clear Calc Estimated GFR POC Glucose 290 H 282 H 256 H Random Glucose Lactic Acid Lactic Acid F/U @ 2Hr Lactic Acid F/U @ 4Hr Calcium Phosphorus Magnesium Total Bilirubin AST ALT Alkaline Phosphatase C-Reactive Protein Total Protein Albumin Beta-Hydroxybutyrate Urine Color Urine Appearance Urine pH Ur Specific [place] Urine Protein Urine Glucose (UA) Urine Ketones Urine Blood Urine Nitrite Ur Leukocyte Esterase Urine RBC Urine WBC Ur Squamous Epith Cells Urine Bacteria Hyaline Casts Gastric Occult Blood Random Vancomycin Blood Type Antibody Screen 09/15/23 09/15/23 09/15/23 08:02 08:21 09:07 WBC RBC Hgb Hct MCV MCH MCHC RDW Plt Count MPV Immature Gran % (Auto) Neut % (Auto) Lymph % (Auto) [place] % (Auto) Eos % (Auto) Baso % (Auto) Lymph # (Auto) [place] # (Auto) Eos # (Auto) Baso # (Auto) Abs Immat Gran (auto) Absolute Neuts (auto) Absolute Nucleated RBC Nucleated RBC % (auto) Neutrophils % (Manual) Band Neutrophils % Lymphocytes % (Manual) Monocytes % (Manual) Eosinophils % (Manual) Metamyelocytes % Myelocytes % Promyelocytes % Abs Neuts (Manual) Lymphocytes # (Manual) Monocytes # (Manual) Eosinophils # (Manual) Basophils # (Manual) Metamyelocytes # Myelocytes # Promyelocytes # Nucleated RBCs Toxic Granulation Toxic Vacuolation Dohle Bodies Platelet Estimate Plt Morphology Comment RBC Morphology Hypochromasia Basophilic Stippling Macrocytosis Spherocytes Target Cells Tear Drop Cells Ovalocytes Stomatocytes [place] Cells Smear Path Review ESR Hold Purple Top O2 Saturation ABG pH at Pt Temp ABG pH (Temp Correct) ABG pCO2 at Pt Temp ABG pCO2 (Temp Corrct ABG pO2 at Pt Temp ABG pO2 (Temp Correct ABG HCO3 ABG Base Excess (Actual) VBG pH VBG pCO2 VBG pO2 VBG HCO3 VBG O2 Saturation VBG Base Excess Sodium 145 Potassium 3.1 L Chloride 114 H Carbon Dioxide 22 Anion Gap 12 BUN 26 H Creatinine 1.11 Estim Creat Clear Calc 111.6 Estimated GFR > 60 POC Glucose 274 H 251 H Random Glucose 259 H Lactic Acid Lactic Acid F/U @ 2Hr Lactic Acid F/U @ 4Hr Calcium 9.8 Phosphorus 1.3 L Magnesium 2.2 Total Bilirubin AST ALT Alkaline Phosphatase C-Reactive Protein Total Protein Albumin Beta-Hydroxybutyrate Urine Color Urine Appearance Urine pH Ur Specific [place] Urine Protein Urine Glucose (UA) Urine Ketones Urine Blood Urine Nitrite Ur Leukocyte Esterase Urine RBC Urine WBC Ur Squamous Epith Cells Urine Bacteria Hyaline Casts Gastric Occult Blood Random Vancomycin Blood Type Antibody Screen 09/15/23 09/15/23 09/15/23 10:13 11:14 11:53 WBC RBC Hgb Hct MCV MCH MCHC RDW Plt Count MPV Immature Gran % (Auto) Neut % (Auto) Lymph % (Auto) [place] % (Auto) Eos % (Auto) Baso % (Auto) Lymph # (Auto) [place] # (Auto) Eos # (Auto) Baso # (Auto) Abs Immat Gran (auto) Absolute Neuts (auto) Absolute Nucleated RBC Nucleated RBC % (auto) Neutrophils % (Manual) Band Neutrophils % Lymphocytes % (Manual) Monocytes % (Manual) Eosinophils % (Manual) Metamyelocytes % Myelocytes % Promyelocytes % Abs Neuts (Manual) Lymphocytes # (Manual) Monocytes # (Manual) Eosinophils # (Manual) Basophils # (Manual) Metamyelocytes # Myelocytes # Promyelocytes # Nucleated RBCs Toxic Granulation Toxic Vacuolation Dohle Bodies Platelet Estimate Plt Morphology Comment RBC Morphology Hypochromasia Basophilic Stippling Macrocytosis Spherocytes Target Cells Tear Drop Cells Ovalocytes Stomatocytes [place] Cells Smear Path Review ESR Hold Purple Top O2 Saturation ABG pH at Pt Temp ABG pH (Temp Correct) ABG pCO2 at Pt Temp ABG pCO2 (Temp Corrct ABG pO2 at Pt Temp ABG pO2 (Temp Correct ABG HCO3 ABG Base Excess (Actual) VBG pH VBG pCO2 VBG pO2 VBG HCO3 VBG O2 Saturation VBG Base Excess Sodium 145 Potassium 3.0 L Chloride 115 H Carbon Dioxide 23 Anion Gap 10 L BUN 22 H Creatinine 0.84 Estim Creat Clear Calc 147.5 Estimated GFR > 60 POC Glucose 223 H 214 H Random Glucose 218 H Lactic Acid Lactic Acid F/U @ 2Hr Lactic Acid F/U @ 4Hr Calcium 9.0 D Phosphorus 1.3 L Magnesium 2.1 Total Bilirubin AST ALT Alkaline Phosphatase C-Reactive Protein Total Protein Albumin Beta-Hydroxybutyrate Urine Color Urine Appearance Urine pH Ur Specific [place] Urine Protein Urine Glucose (UA) Urine Ketones Urine Blood Urine Nitrite Ur Leukocyte Esterase Urine RBC Urine WBC Ur Squamous Epith Cells Urine Bacteria Hyaline Casts Gastric Occult Blood Random Vancomycin Blood Type Antibody Screen 09/15/23 09/15/23 09/15/23 12:08 13:07 14:03 WBC RBC Hgb Hct MCV MCH MCHC RDW Plt Count MPV Immature Gran % (Auto) Neut % (Auto) Lymph % (Auto) [place] % (Auto) Eos % (Auto) Baso % (Auto) Lymph # (Auto) [place] # (Auto) Eos # (Auto) Baso # (Auto) Abs Immat Gran (auto) Absolute Neuts (auto) Absolute Nucleated RBC Nucleated RBC % (auto) Neutrophils % (Manual) Band Neutrophils % Lymphocytes % (Manual) Monocytes % (Manual) Eosinophils % (Manual) Metamyelocytes % Myelocytes % Promyelocytes % Abs Neuts (Manual) Lymphocytes # (Manual) Monocytes # (Manual) Eosinophils # (Manual) Basophils # (Manual) Metamyelocytes # Myelocytes # Promyelocytes # Nucleated RBCs Toxic Granulation Toxic Vacuolation Dohle Bodies Platelet Estimate Plt Morphology Comment RBC Morphology Hypochromasia Basophilic Stippling Macrocytosis Spherocytes Target Cells Tear Drop Cells Ovalocytes Stomatocytes [place] Cells Smear Path Review ESR Hold Purple Top O2 Saturation ABG pH at Pt Temp ABG pH (Temp Correct) ABG pCO2 at Pt Temp ABG pCO2 (Temp Corrct ABG pO2 at Pt Temp ABG pO2 (Temp Correct ABG HCO3 ABG Base Excess (Actual) VBG pH VBG pCO2 VBG pO2 VBG HCO3 VBG O2 Saturation VBG Base Excess Sodium Potassium Chloride Carbon Dioxide Anion Gap BUN Creatinine Estim Creat Clear Calc Estimated GFR POC Glucose 221 H 189 H 179 H Random Glucose Lactic Acid Lactic Acid F/U @ 2Hr Lactic Acid F/U @ 4Hr Calcium Phosphorus Magnesium Total Bilirubin AST ALT Alkaline Phosphatase C-Reactive Protein Total Protein Albumin Beta-Hydroxybutyrate Urine Color Urine Appearance Urine pH Ur Specific [place] Urine Protein Urine Glucose (UA) Urine Ketones Urine Blood Urine Nitrite Ur Leukocyte Esterase Urine RBC Urine WBC Ur Squamous Epith Cells Urine Bacteria Hyaline Casts Gastric Occult Blood Random Vancomycin Blood Type Antibody Screen 09/15/23 09/15/23 09/15/23 15:10 15:58 16:01 WBC RBC Hgb Hct MCV MCH MCHC RDW Plt Count MPV Immature Gran % (Auto) Neut % (Auto) Lymph % (Auto) [place] % (Auto) Eos % (Auto) Baso % (Auto) Lymph # (Auto) [place] # (Auto) Eos # (Auto) Baso # (Auto) Abs Immat Gran (auto) Absolute Neuts (auto) Absolute Nucleated RBC Nucleated RBC % (auto) Neutrophils % (Manual) Band Neutrophils % Lymphocytes % (Manual) Monocytes % (Manual) Eosinophils % (Manual) Metamyelocytes % Myelocytes % Promyelocytes % Abs Neuts (Manual) Lymphocytes # (Manual) Monocytes # (Manual) Eosinophils # (Manual) Basophils # (Manual) Metamyelocytes # Myelocytes # Promyelocytes # Nucleated RBCs Toxic Granulation Toxic Vacuolation Dohle Bodies Platelet Estimate Plt Morphology Comment RBC Morphology Hypochromasia Basophilic Stippling Macrocytosis Spherocytes Target Cells Tear Drop Cells Ovalocytes Stomatocytes [place] Cells Smear Path Review ESR Hold Purple Top O2 Saturation ABG pH at Pt Temp ABG pH (Temp Correct) ABG pCO2 at Pt Temp ABG pCO2 (Temp Corrct ABG pO2 at Pt Temp ABG pO2 (Temp Correct ABG HCO3 ABG Base Excess (Actual) VBG pH VBG pCO2 VBG pO2 VBG HCO3 VBG O2 Saturation VBG Base Excess Sodium 145 Potassium 3.4 Chloride 113 H Carbon Dioxide 20 L Anion Gap 15 BUN 24 H Creatinine 0.91 Estim Creat Clear Calc 136.2 Estimated GFR > 60 POC Glucose 226 H 258 H Random Glucose 270 H Lactic Acid Lactic Acid F/U @ 2Hr Lactic Acid F/U @ 4Hr Calcium 9.1 Phosphorus 2.2 L Magnesium 2.0 Total Bilirubin AST ALT Alkaline Phosphatase C-Reactive Protein Total Protein Albumin Beta-Hydroxybutyrate Urine Color Urine Appearance Urine pH Ur Specific [place] Urine Protein Urine Glucose (UA) Urine Ketones Urine Blood Urine Nitrite Ur Leukocyte Esterase Urine RBC Urine WBC Ur Squamous Epith Cells Urine Bacteria Hyaline Casts Gastric Occult Blood Random Vancomycin Blood Type Antibody Screen 09/15/23 09/15/23 09/15/23 17:25 18:05 21:04 WBC RBC Hgb Hct MCV MCH MCHC RDW Plt Count MPV Immature Gran % (Auto) Neut % (Auto) Lymph % (Auto) [place] % (Auto) Eos % (Auto) Baso % (Auto) Lymph # (Auto) [place] # (Auto) Eos # (Auto) Baso # (Auto) Abs Immat Gran (auto) Absolute Neuts (auto) Absolute Nucleated RBC Nucleated RBC % (auto) Neutrophils % (Manual) Band Neutrophils % Lymphocytes % (Manual) Monocytes % (Manual) Eosinophils % (Manual) Metamyelocytes % Myelocytes % Promyelocytes % Abs Neuts (Manual) Lymphocytes # (Manual) Monocytes # (Manual) Eosinophils # (Manual) Basophils # (Manual) Metamyelocytes # Myelocytes # Promyelocytes # Nucleated RBCs Toxic Granulation Toxic Vacuolation Dohle Bodies Platelet Estimate Plt Morphology Comment RBC Morphology Hypochromasia Basophilic Stippling Macrocytosis Spherocytes Target Cells Tear Drop Cells Ovalocytes Stomatocytes [place] Cells Smear Path Review ESR Hold Purple Top O2 Saturation ABG pH at Pt Temp ABG pH (Temp Correct) ABG pCO2 at Pt Temp ABG pCO2 (Temp Corrct ABG pO2 at Pt Temp ABG pO2 (Temp Correct ABG HCO3 ABG Base Excess (Actual) VBG pH VBG pCO2 VBG pO2 VBG HCO3 VBG O2 Saturation VBG Base Excess Sodium 145 Potassium 3.5 Chloride 112 H Carbon Dioxide 19 L Anion Gap 18 BUN 24 H Creatinine 0.98 Estim Creat Clear Calc 126.4 Estimated GFR > 60 POC Glucose 307 H Random Glucose 324 H Lactic Acid Lactic Acid F/U @ 2Hr Lactic Acid F/U @ 4Hr Calcium 9.0 Phosphorus 2.6 L Magnesium 2.1 Total Bilirubin AST ALT Alkaline Phosphatase C-Reactive Protein Total Protein Albumin Beta-Hydroxybutyrate Urine Color Urine Appearance Urine pH Ur Specific [place] Urine Protein Urine Glucose (UA) Urine Ketones Urine Blood Urine Nitrite Ur Leukocyte Esterase Urine RBC Urine WBC Ur Squamous Epith Cells Urine Bacteria Hyaline Casts Gastric Occult Blood POSITIVE Random Vancomycin 16.7 Blood Type Antibody Screen 09/15/23 09/15/23 09/15/23 21:13 22:36 23:57 WBC RBC Hgb 8.0 L Hct 22.3 L MCV MCH MCHC RDW Plt Count MPV Immature Gran % (Auto) Neut % (Auto) Lymph % (Auto) [place] % (Auto) Eos % (Auto) Baso % (Auto) Lymph # (Auto) [place] # (Auto) Eos # (Auto) Baso # (Auto) Abs Immat Gran (auto) Absolute Neuts (auto) Absolute Nucleated RBC Nucleated RBC % (auto) Neutrophils % (Manual) Band Neutrophils % Lymphocytes % (Manual) Monocytes % (Manual) Eosinophils % (Manual) Metamyelocytes % Myelocytes % Promyelocytes % Abs Neuts (Manual) Lymphocytes # (Manual) Monocytes # (Manual) Eosinophils # (Manual) Basophils # (Manual) Metamyelocytes # Myelocytes # Promyelocytes # Nucleated RBCs Toxic Granulation Toxic Vacuolation Dohle Bodies Platelet Estimate Plt Morphology Comment RBC Morphology Hypochromasia Basophilic Stippling Macrocytosis Spherocytes Target Cells Tear Drop Cells Ovalocytes Stomatocytes [place] Cells Smear Path Review ESR Hold Purple Top O2 Saturation ABG pH at Pt Temp ABG pH (Temp Correct) ABG pCO2 at Pt Temp ABG pCO2 (Temp Corrct ABG pO2 at Pt Temp ABG pO2 (Temp Correct ABG HCO3 ABG Base Excess (Actual) VBG pH VBG pCO2 VBG pO2 VBG HCO3 VBG O2 Saturation VBG Base Excess Sodium Potassium Chloride Carbon Dioxide Anion Gap BUN Creatinine Estim Creat Clear Calc Estimated GFR POC Glucose 313 H 309 H Random Glucose Lactic Acid Lactic Acid F/U @ 2Hr Lactic Acid F/U @ 4Hr Calcium Phosphorus Magnesium Total Bilirubin AST ALT Alkaline Phosphatase C-Reactive Protein Total Protein Albumin Beta-Hydroxybutyrate Urine Color Urine Appearance Urine pH Ur Specific [place] Urine Protein Urine Glucose (UA) Urine Ketones Urine Blood Urine Nitrite Ur Leukocyte Esterase Urine RBC Urine WBC Ur Squamous Epith Cells Urine Bacteria Hyaline Casts Gastric Occult Blood Random Vancomycin Blood Type Antibody Screen 09/16/23 09/16/23 09/16/23 04:35 05:07 12:08 WBC 26.8 H RBC 2.71 L Hgb 7.8 L Hct 22.4 L MCV 82.7 MCH 28.8 MCHC 34.8 RDW 17.8 H Plt Count 223 MPV 9.0 L Immature Gran % (Auto) Cancelled Neut % (Auto) Cancelled Lymph % (Auto) Cancelled [place] % (Auto) Cancelled Eos % (Auto) Cancelled Baso % (Auto) Cancelled Lymph # (Auto) Cancelled [place] # (Auto) Cancelled Eos # (Auto) Cancelled Baso # (Auto) Cancelled Abs Immat Gran (auto) Cancelled Absolute Neuts (auto) Cancelled Absolute Nucleated RBC 0.090 H Nucleated RBC % (auto) 0.3 H Neutrophils % (Manual) 61 Band Neutrophils % 25 H Lymphocytes % (Manual) 4 L Monocytes % (Manual) 2 Eosinophils % (Manual) Metamyelocytes % 3 Myelocytes % 5 Promyelocytes % Abs Neuts (Manual) 23.0 H Lymphocytes # (Manual) 1.1 L Monocytes # (Manual) 0.5 Eosinophils # (Manual) Basophils # (Manual) Metamyelocytes # 0.8 Myelocytes # 1.3 Promyelocytes # Nucleated RBCs Toxic Granulation Toxic Vacuolation Dohle Bodies PRESENT Platelet Estimate NORMAL Plt Morphology Comment NORMAL RBC Morphology NOTED Hypochromasia 1+ (5-14) Basophilic Stippling 1+ (0-2) Macrocytosis 1+ (5-14) Spherocytes Target Cells 1+ (5-14) Tear Drop Cells 1+ (0-2) Ovalocytes 1+ (5-14) Stomatocytes 1+ (5-14) [place] Cells Smear Path Review ESR Hold Purple Top O2 Saturation 96.0 ABG pH at Pt Temp 7.34 L ABG pH (Temp Correct) ABG pCO2 at Pt Temp 30 L ABG pCO2 (Temp Corrct ABG pO2 at Pt Temp 107 ABG pO2 (Temp Correct ABG HCO3 17 L ABG Base Excess (Actual) -7.7 VBG pH VBG pCO2 VBG pO2 VBG HCO3 VBG O2 Saturation VBG Base Excess Sodium 145 Potassium 3.3 Chloride 112 H Carbon Dioxide 18 L Anion Gap 18 BUN 22 H Creatinine 1.00 Estim Creat Clear Calc 123.9 Estimated GFR > 60 POC Glucose 285 H 277 H Random Glucose 318 H Lactic Acid Lactic Acid F/U @ 2Hr Lactic Acid F/U @ 4Hr Calcium 8.6 Phosphorus 3.8 Magnesium 2.1 Total Bilirubin AST ALT Alkaline Phosphatase C-Reactive Protein Total Protein Albumin Beta-Hydroxybutyrate Urine Color Urine Appearance Urine pH Ur Specific [place] Urine Protein Urine Glucose (UA) Urine Ketones Urine Blood Urine Nitrite Ur Leukocyte Esterase Urine RBC Urine WBC Ur Squamous Epith Cells Urine Bacteria Hyaline Casts Gastric Occult Blood Random Vancomycin Blood Type Antibody Screen 09/16/23 09/16/23 09/16/23 18:05 21:01 23:39 WBC 29.8 H RBC 2.59 L Hgb 7.6 L Hct 21.7 L MCV 83.8 MCH 29.3 MCHC 35.0 RDW 17.2 H Plt Count 222 MPV 9.1 L Immature Gran % (Auto) Neut % (Auto) Lymph % (Auto) [place] % (Auto) Eos % (Auto) Baso % (Auto) Lymph # (Auto) [place] # (Auto) Eos # (Auto) Baso # (Auto) Abs Immat Gran (auto) Absolute Neuts (auto) Absolute Nucleated RBC 0.110 H Nucleated RBC % (auto) 0.4 H Neutrophils % (Manual) Band Neutrophils % Lymphocytes % (Manual) Monocytes % (Manual) Eosinophils % (Manual) Metamyelocytes % Myelocytes % Promyelocytes % Abs Neuts (Manual) Lymphocytes # (Manual) Monocytes # (Manual) Eosinophils # (Manual) Basophils # (Manual) Metamyelocytes # Myelocytes # Promyelocytes # Nucleated RBCs Toxic Granulation Toxic Vacuolation Dohle Bodies Platelet Estimate Plt Morphology Comment RBC Morphology Hypochromasia Basophilic Stippling Macrocytosis Spherocytes Target Cells Tear Drop Cells Ovalocytes Stomatocytes [place] Cells Smear Path Review ESR Hold Purple Top O2 Saturation ABG pH at Pt Temp ABG pH (Temp Correct) ABG pCO2 at Pt Temp ABG pCO2 (Temp Corrct ABG pO2 at Pt Temp ABG pO2 (Temp Correct ABG HCO3 ABG Base Excess (Actual) VBG pH VBG pCO2 VBG pO2 VBG HCO3 VBG O2 Saturation VBG Base Excess Sodium 147 H Potassium 3.1 L Chloride 111 H Carbon Dioxide 23 Anion Gap 16 BUN 19 H Creatinine 0.91 Estim Creat Clear Calc 136.2 Estimated GFR > 60 POC Glucose 221 H Random Glucose 264 H Lactic Acid Lactic Acid F/U @ 2Hr Lactic Acid F/U @ 4Hr Calcium 8.3 L Phosphorus 3.8 Magnesium 2.1 Total Bilirubin AST ALT Alkaline Phosphatase C-Reactive Protein Total Protein Albumin Beta-Hydroxybutyrate Urine Color Urine Appearance Urine pH Ur Specific [place] Urine Protein Urine Glucose (UA) Urine Ketones Urine Blood Urine Nitrite Ur Leukocyte Esterase Urine RBC Urine WBC Ur Squamous Epith Cells Urine Bacteria Hyaline Casts Gastric Occult Blood Random Vancomycin 16.7 Blood Type Antibody Screen 09/17/23 09/17/23 09/17/23 04:32 04:33 05:23 WBC 27.3 H RBC 2.52 L Hgb 7.4 L Hct 21.0 L* MCV 83.3 MCH 29.4 MCHC 35.2 RDW 17.3 H Plt Count 207 MPV 9.0 L Immature Gran % (Auto) Neut % (Auto) Lymph % (Auto) [place] % (Auto) Eos % (Auto) Baso % (Auto) Lymph # (Auto) [place] # (Auto) Eos # (Auto) Baso # (Auto) Abs Immat Gran (auto) Absolute Neuts (auto) Absolute Nucleated RBC 0.160 H Nucleated RBC % (auto) 0.6 H Neutrophils % (Manual) 73 Band Neutrophils % 14 H Lymphocytes % (Manual) 5 L Monocytes % (Manual) 1 L Eosinophils % (Manual) 1 Metamyelocytes % 4 Myelocytes % 2 Promyelocytes % Abs Neuts (Manual) 23.8 H Lymphocytes # (Manual) 1.4 Monocytes # (Manual) 0.3 Eosinophils # (Manual) 0.3 Basophils # (Manual) 0.3 H Metamyelocytes # 1.1 Myelocytes # 0.5 Promyelocytes # Nucleated RBCs Toxic Granulation PRESENT Toxic Vacuolation Dohle Bodies PRESENT Platelet Estimate NORMAL Plt Morphology Comment NORMAL RBC Morphology NOTED Hypochromasia 1+ (5-14) Basophilic Stippling 1+ (0-2) Macrocytosis 1+ (5-14) Spherocytes 1+ (0-2) Target Cells 1+ (5-14) Tear Drop Cells 1+ (0-2) Ovalocytes 1+ (5-14) Stomatocytes 1+ (5-14) [place] Cells Smear Path Review ESR Hold Purple Top O2 Saturation 91.0 ABG pH at Pt Temp 7.45 ABG pH (Temp Correct) ABG pCO2 at Pt Temp 36 ABG pCO2 (Temp Corrct ABG pO2 at Pt Temp 75 L ABG pO2 (Temp Correct ABG HCO3 25 ABG Base Excess (Actual) 1.8 VBG pH VBG pCO2 VBG pO2 VBG HCO3 VBG O2 Saturation VBG Base Excess Sodium 147 H Potassium 3.4 Chloride 112 H Carbon Dioxide 20 L Anion Gap 18 BUN 17 H Creatinine 0.83 Estim Creat Clear Calc 149.3 Estimated GFR > 60 POC Glucose 225 H Random Glucose 231 H Lactic Acid Lactic Acid F/U @ 2Hr Lactic Acid F/U @ 4Hr Calcium 8.5 Phosphorus 3.2 Magnesium 2.2 Total Bilirubin AST ALT Alkaline Phosphatase C-Reactive Protein Total Protein Albumin Beta-Hydroxybutyrate Urine Color Urine Appearance Urine pH Ur Specific Boyle Urine Protein Urine Glucose (UA) Urine Ketones Urine Blood Urine Nitrite Ur Leukocyte Esterase Urine RBC Urine WBC Ur Squamous Epith Cells Urine Bacteria Hyaline Casts Gastric Occult Blood Random Vancomycin Blood Type Antibody Screen 09/17/23 11:38 WBC RBC Hgb Hct MCV MCH MCHC RDW Plt Count MPV Immature Gran % (Auto) Neut % (Auto) Lymph % (Auto) [place] % (Auto) Eos % (Auto) Baso % (Auto) Lymph # (Auto) [place] # (Auto) Eos # (Auto) Baso # (Auto) Abs Immat Gran (auto) Absolute Neuts (auto) Absolute Nucleated RBC Nucleated RBC % (auto) Neutrophils % (Manual) Band Neutrophils % Lymphocytes % (Manual) Monocytes % (Manual) Eosinophils % (Manual) Metamyelocytes % Myelocytes % Promyelocytes % Abs Neuts (Manual) Lymphocytes # (Manual) Monocytes # (Manual) Eosinophils # (Manual) Basophils # (Manual) Metamyelocytes # Myelocytes # Promyelocytes # Nucleated RBCs Toxic Granulation Toxic Vacuolation Dohle Bodies Platelet Estimate Plt Morphology Comment RBC Morphology Hypochromasia Basophilic Stippling Macrocytosis Spherocytes Target Cells Tear Drop Cells Ovalocytes Stomatocytes [place] Cells Smear Path Review ESR Hold Purple Top O2 Saturation ABG pH at Pt Temp ABG pH (Temp Correct) ABG pCO2 at Pt Temp ABG pCO2 (Temp Corrct ABG pO2 at Pt Temp ABG pO2 (Temp Correct ABG HCO3 ABG Base Excess (Actual) VBG pH VBG pCO2 VBG pO2 VBG HCO3 VBG O2 Saturation VBG Base Excess Sodium Potassium Chloride Carbon Dioxide Anion Gap BUN Creatinine Estim Creat Clear Calc Estimated GFR POC Glucose 201 H Random Glucose Lactic Acid Lactic Acid F/U @ 2Hr Lactic Acid F/U @ 4Hr Calcium Phosphorus Magnesium Total Bilirubin AST ALT Alkaline Phosphatase C-Reactive Protein Total Protein Albumin Beta-Hydroxybutyrate Urine Color Urine Appearance Urine pH Ur Specific Boyle Urine Protein Urine Glucose (UA) Urine Ketones Urine Blood Urine Nitrite Ur Leukocyte Esterase Urine RBC Urine WBC Ur Squamous Epith Cells Urine Bacteria Hyaline Casts Gastric Occult Blood Random Vancomycin Blood Type Antibody Screen Airway Mallampati Class: Patient Non-Cooperative (Patient intubated and sedated) Heart: RRR Lungs: CTAB Assessment and Plan Assessment Anesthesia Assessment: Anesthesia Plan Discussed (Discussed with daughter-HCP) and Chart Reviewed Final Anesthetic Review Family History of Problems with Anesthesia: No History of Problems with Anesthesia: No NPO: Yes ASA Class: IV and Emergency Final Preanesthetic Review: No Changes in Pt Med Stat, Meds/Allgs Chart Reviewed, Consent Obtained/Reviewed and Anes Risks/Benef Reviewed Patient Risk: High Procedure Risk: Intermediate Assessment/Block/Sedation in SS: Assess/Block/Sedation-SS Anesthetic Plan Anesthetic Plan: GA Disposition: Standard PACU
--- NOTE | 2023-09-17 14:40 | W.PM.OPN ---
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 He is here for another exam of the wound in for likely additional debridement. His daughter had given consent. Patient remains intubated in the ICU. He was brought to the operating room. He was placed in sloppy left lateral decubitus position with the right hip flex to expose the open wound on the right buttock proximally thigh extending medially. This area was prepped and draped. Examination of the wound revealed patchy areas of nonviable subcutaneous fat. Flap of skin overlying the lateral aspect of the wound appeared nonviable as well I proceeded to do sharp excisional debridement of the full-thickness of the skin and subcutaneous layer with Gonzalez scissors to excise this. I proceeded to do sharp excisional debridement of all the nonviable looking subcutaneous fat throughout the wound. The debrided area was about 28 cm by 17 cm. The entire open wound appeared to have viable tissue. There was note of good healthy oozing from all areas. The wound involved the very deep layers of the subcutaneous fat the way to just above the fascia of the proximal thigh posteriorly. Hemostasis was achieved with electrocautery on oozing areas. I applied 3 Kerlix rolls as a wet-to-dry packing into the open wound. Thick dressings were applied and the entire wound was covered with thick fluffy gauze. ABD dressings were applied The procedure was completed The patient tolerated procedure well. There were no immediate complications. Estimated blood loss was about 25 cc The patient was extubated without difficulty and transferred back to the ICU. The plan is to change dressings tomorrow bedside.
[2023-09-17] MEDS: propofoL 1,000 MG/100 ML VIAL 27.65 MG IVCONT ×3 (16:20→23:39)
[2023-09-17 17:53] LABS: Glucose, Whole Blood 172 mg/dL (60-115)
[2023-09-17 18:47] LABS: Anion Gap 18 (12-20); Blood Urea Nitrogen 15 mg/dL (9-16); Calcium 8.3 mg/dL (8.4-10.2); Carbon Dioxide 27 mmol/L (22-29); Chloride 108 mmol/L (96-108); Creatinine Clr Calc Pharmacy 153.3; Estimated Glomerular Filt Rate > 60; Glucose Random 180 mg/dL (60-115); Magnesium 2.1 mg/dL (1.6-2.6); Phosphorus 3.5 mg/dL (2.7-4.5); Potassium 3.1 mmol/L (3.3-5.1); Sodium 150 mmol/L (135-145)
[2023-09-17] MEDS: Potassium Chloride/H20 40 MEQ/100 ML PIGGYBACK 100 MEQ IV ×2 (19:04→20:09)
[2023-09-17 19:07] LABS: Albumin Level 2.6 g/dL (3.5-5.0)
[2023-09-17] MEDS: Albumin Human 25 % 100 ML IV (19:29)
[2023-09-17] MEDS: Insulin Glargine,Hum.rec.anlog 100 UNIT/ML 10 ML VIAL 20 UNIT SUBCUT (20:11)
[2023-09-17 20:14] LABS: Mean Corpuscular HGB Conc 33.9 g/dl (31.0-36.0); Mean Corpuscular Hemoglobin 28.7 pg (27.0-33.0); Mean Corpuscular Volume 84.8 fL (80.0-98.0); Mean Platelet Volume 9.3 fL (9.4-12.4); NRBC Pct Auto 0.9 /100WBC (0.0-0.2); Platelet Count 200 X10*3/uL (160-400); Red Blood Count 2.23 X10*6/uL (4.60-5.80); White Blood Count 20.8 X10*3/uL (4.8-10.8)
[2023-09-17 20:16] LABS: Hematocrit 18.9 % (42.0-52.0); Hemoglobin 6.4 g/dl (14.0-18.0)
[2023-09-17 20:33] LABS: Vancomycin Random 16.9 mcg/mL (15-20)
--- NOTE | 2023-09-17 20:41 | HE.PHANOTE ---
Re: Vanco Renal function improving. Trough returned at 16.9. Continue current dose of 1250 mg q12h with predicted AUC 579, and predicted trough 18.6 (pt running lower than predictions). Next trough 09/17 @ 2100.
[2023-09-17 20:44] LABS: Band Neutrophils Percent 15 % (3-5); Basophils Abs Manual 0.2 X10*3/uL (0.0-0.2); Basophils Percent Manual 1 % (0-2); Dohle Bodies PRESENT; Lymphocytes Absolute Manual 0.8 X10*3/uL (1.2-4.9); Lymphocytes Percent Manual 4 % (20-40); Metamyelocytes Absolute 0.2 X10*3/uL; Metamyelocytes Percent 1 %; Monocytes Absolute Manual 0.2 X10*3/uL (0.1-1.2); Monocytes Percent Manual 1 % (2-11); Neutrophils Absolute Manual 19.3 X10*3/uL (2.0-8.3); Neutrophils Percent Manual 78 % (45-73); Platelet Estimate NORMAL (NORMAL); Platelet Morphology Comment NORMAL; RBC Morphology NOTED; Spherocytes 1+ (0-2) /OIF; Stomatocytes 1+ (5-14) /OIF; Target Cells 1+ (5-14) /OIF
[2023-09-17 20:45] LABS: Ovalocytes 1+ (5-14) /OIF
[2023-09-17] MEDS: Midazolam HCl/NS 50 MG/50 ML PLAST..BAG IVCONT (20:59)
[2023-09-17] MEDS: Acetaminophen Oral Liquid 650 MG/20.3 ML SOLUTION OG-TUBE (21:40)
[2023-09-17] MEDS: Norepinephrine Bitartrate/D5W 8 MG/250 ML PLAST..BAG 16.48 MG IV (22:05)
[2023-09-17 23:25] LABS: Glucose, Whole Blood 209 mg/dL (60-115)
[2023-09-18] VITALS (51 sets, daily range): BP systolic 103–158; BP diastolic 29–60; PULSE 68–129; RESP 18–25; TEMP 34.6–38.4; O2SAT 90–100; BMI 52.5
[2023-09-18] MEDS: Albumin Human 25 % 100 ML IV ×3 (01:03→12:53)
[2023-09-18] MEDS: fentaNYL citrate/NS 1,000 MCG/100 ML PLAST..BAG 15 MCG IVCONT ×2 (01:05→06:09)
[2023-09-18] MEDS: Piperacillin Sodium/Tazobactam 4.5 GM in 0.9 % Sodium Chloride 100 ML IV ×4 (01:42→19:40)
[2023-09-18] MEDS: propofoL 1,000 MG/100 ML VIAL 36.86 MG IVCONT ×7 (02:48→23:50)
[2023-09-18] MEDS: Clindamycin Phosphate/D5W 600 MG/50 ML PIGGYBACK 100 MG IV ×3 (04:23→19:37)
[2023-09-18 04:50] LABS: ABG HCO3 33 mmol/L (22-26); ABG pCO2 37 mmHg (32-45); ABG pH 7.54 (7.35-7.45); ABG pO2 67 mmHg (83-108)
[2023-09-18] MEDS: Acetaminophen Oral Liquid 650 MG/20.3 ML SOLUTION PO (04:57)
[2023-09-18 05:37] LABS: Hematocrit 21.1 % (42.0-52.0); Hemoglobin 7.1 g/dl (14.0-18.0); Mean Corpuscular HGB Conc 33.6 g/dl (31.0-36.0); Mean Corpuscular Hemoglobin 29.2 pg (27.0-33.0); Mean Corpuscular Volume 86.8 fL (80.0-98.0); Mean Platelet Volume 9.1 fL (9.4-12.4); NRBC Pct Auto 1.3 /100WBC (0.0-0.2); Platelet Count 187 X10*3/uL (160-400); Red Blood Count 2.43 X10*6/uL (4.60-5.80); Red Cell Distribution Width 16.4 % (11.0-16.0); White Blood Count 16.8 X10*3/uL (4.8-10.8)
[2023-09-18 05:56] LABS: Anion Gap 15 (12-20); Blood Urea Nitrogen 12 mg/dL (9-16); Calcium 8.1 mg/dL (8.4-10.2); Carbon Dioxide 26 mmol/L (22-29); Chloride 112 mmol/L (96-108); Creatinine Clr Calc Pharmacy 142.7; Estimated Glomerular Filt Rate > 60; Glucose Random 238 mg/dL (60-115); Magnesium 2.1 mg/dL (1.6-2.6); Phosphorus 2.4 mg/dL (2.7-4.5); Sodium 150 mmol/L (135-145)
[2023-09-18] MEDS: Insulin Lispro 100 UNIT/ML 3 ML VIAL SUBCUT ×4 (06:08→23:45)
[2023-09-18] MEDS: Pantoprazole Sodium 40 MG/10 ML VIAL IVPUSH ×2 (06:09→15:05)
[2023-09-18 06:15] LABS: Band Neutrophils Percent 20 % (3-5); Lymphocytes Absolute Manual 1.8 X10*3/uL (1.2-4.9); Lymphocytes Percent Manual 11 % (20-40); Metamyelocytes Absolute 0.3 X10*3/uL; Metamyelocytes Percent 2 %; Monocytes Absolute Manual 0.2 X10*3/uL (0.1-1.2); Monocytes Percent Manual 1 % (2-11); Neutrophils Absolute Manual 14.4 X10*3/uL (2.0-8.3); Neutrophils Percent Manual 66 % (45-73)
[2023-09-18] MEDS: Potassium Chloride/H20 40 MEQ/100 ML PIGGYBACK 50 MEQ IV ×2 (06:16→08:56)
[2023-09-18 06:17] LABS: RBC Morphology NOTED
[2023-09-18 06:18] LABS: Dohle Bodies PRESENT; Hypochromasia 1+ (5-14) /OIF; Platelet Estimate NORMAL (NORMAL); Smudge Cells PRESENT; Stomatocytes 1+ (5-14) /OIF; Target Cells 1+ (5-14) /OIF
[2023-09-18 06:22] LABS: ABG Refer to POC result
[2023-09-18 06:27] LABS: Albumin Level 2.8 g/dL (3.5-5.0)
[2023-09-18] MEDS: propofoL 1,000 MG/100 ML VIAL 46.08 MG IVCONT (07:21)
[2023-09-18 07:22] LABS: Platelet Morphology Comment NORMAL
[2023-09-18] MEDS: 0.9 % Sodium Chloride Flush 3 ML SYRINGE IVFLUSH ×3 (07:28→23:13)
[2023-09-18] MEDS: Insulin Glargine,Hum.rec.anlog 100 UNIT/ML 10 ML VIAL 15 UNIT SUBCUT (07:46)
[2023-09-18] MEDS: Chlorhexidine Gluc Oral Rinse 15 ML MOUTHWASH BUCCAL ×3 (07:47→21:02)
--- NOTE | 2023-09-18 07:50 | P.PNCC_ITS ---
Subjective Subjective Date of Service: 09/18/23 Interval History: no significant overnight events Critical Care Time (minutes): 60 Physical Exam 2 Vital Signs: Vital Signs: Last Vital Signs Temp 100.2 F 09/18/23 07:00 Pulse 93 09/18/23 07:00 Resp 18 09/18/23 07:00 BP 119/42 L 09/18/23 07:00 Pulse Ox 96 09/18/23 07:00 O2 Del Method Mechanical Ventil ation 09/18/23 07:00 O2 Flow Rate 2.0 09/14/23 12:13 FiO2 30 09/18/23 07:00 BMI result Body Mass Index 52.5 Const: Other: intubated, sedated; appreciable morbid obesity General: no acute distress HEENT: Head: Yes normal to inspection, Yes normocephalic and Yes atraumatic Eyes: General: appearance normal, both eyes and all related structures Neck: Neck: Yes normal visual inspection, Yes full ROM, Yes trachea midline and Yes supple Chest: Chest palpation & inspection: normal inspection of the chest Resp: Other: some appreciable rhonchi; no appreciable rales, wheezing Effort & Inspection: normal respiratory effort Cardio: Rate: regular rate Rhythm: regular rhythm GI: Inspection: Yes normal to inspection, No Abdominal wall edema and No distended Palpation (GI): Soft to palpation, not firm, nontender, no guarding and not rigid : Other: appreciable bandages, clean, dry, intact Neuro: General: tone normal and moves all extremities Extrem: General: Yes normal to inspection, Yes full ROM, Yes capillary refill normal and Yes no clubbing, cyanosis or edema Psych: Other: unable to assess Objective Data Labs 09/18/23 05:18 09/18/23 05:18 Labs: Laboratory Results - last 24 hr 09/14/23 09/17/23 09/17/23 10:41 11:38 17:49 WBC RBC Hgb Hct MCV MCH MCHC RDW Plt Count MPV Immature Gran % (Auto) Neut % (Auto) Lymph % (Auto) [place] % (Auto) Eos % (Auto) Baso % (Auto) Lymph # (Auto) [place] # (Auto) Eos # (Auto) Baso # (Auto) Abs Immat Gran (auto) Absolute Neuts (auto) Absolute Nucleated RBC Nucleated RBC % (auto) Neutrophils % (Manual) Band Neutrophils % Lymphocytes % (Manual) Monocytes % (Manual) Basophils % (Manual) Metamyelocytes % Abs Neuts (Manual) Lymphocytes # (Manual) Monocytes # (Manual) Basophils # (Manual) Metamyelocytes # Smudge Cells Dohle Bodies Platelet Estimate Plt Morphology Comment RBC Morphology Hypochromasia Spherocytes Target Cells Ovalocytes Stomatocytes Smear Path Review O2 Saturation ABG pH at Pt Temp ABG pCO2 at Pt Temp ABG pO2 at Pt Temp ABG HCO3 ABG Base Excess (Actual) Sodium Potassium Chloride Carbon Dioxide Anion Gap BUN Creatinine Estim Creat Clear Calc Estimated GFR POC Glucose 201 H 172 H Random Glucose Calcium Phosphorus Magnesium Albumin Random Vancomycin Blood Type Antibody Screen Crossmatch 09/17/23 09/17/23 09/17/23 18:09 19:44 20:25 WBC 20.8 H RBC 2.23 L Hgb 6.4 L* Hct 18.9 L* MCV 84.8 MCH 28.7 MCHC 33.9 RDW 17.0 H Plt Count 200 MPV 9.3 L Immature Gran % (Auto) Cancelled Neut % (Auto) Cancelled Lymph % (Auto) Cancelled [place] % (Auto) Cancelled Eos % (Auto) Cancelled Baso % (Auto) Cancelled Lymph # (Auto) Cancelled [place] # (Auto) Cancelled Eos # (Auto) Cancelled Baso # (Auto) Cancelled Abs Immat Gran (auto) Cancelled Absolute Neuts (auto) Cancelled Absolute Nucleated RBC 0.180 H Nucleated RBC % (auto) 0.9 H Neutrophils % (Manual) 78 H Band Neutrophils % 15 H Lymphocytes % (Manual) 4 L Monocytes % (Manual) 1 L Basophils % (Manual) 1 Metamyelocytes % 1 Abs Neuts (Manual) 19.3 H Lymphocytes # (Manual) 0.8 L Monocytes # (Manual) 0.2 Basophils # (Manual) 0.2 Metamyelocytes # 0.2 Smudge Cells Dohle Bodies PRESENT Platelet Estimate NORMAL Plt Morphology Comment NORMAL RBC Morphology NOTED Hypochromasia Spherocytes 1+ (0-2) Target Cells 1+ (5-14) Ovalocytes 1+ (5-14) Stomatocytes 1+ (5-14) Smear Path Review O2 Saturation ABG pH at Pt Temp ABG pCO2 at Pt Temp ABG pO2 at Pt Temp ABG HCO3 ABG Base Excess (Actual) Sodium 150 H Potassium 3.1 L Chloride 108 Carbon Dioxide 27 Anion Gap 18 BUN 15 Creatinine 0.84 Estim Creat Clear Calc 153.3 Estimated GFR > 60 POC Glucose Random Glucose 180 H Calcium 8.3 L Phosphorus 3.5 Magnesium 2.1 Albumin 2.6 L Random Vancomycin 16.9 Blood Type A Positive Antibody Screen NEGATIVE Crossmatch See Detail 09/17/23 09/18/23 09/18/23 23:21 04:40 05:18 WBC 16.8 H RBC 2.43 L Hgb 7.1 L Hct 21.1 L MCV 86.8 MCH 29.2 MCHC 33.6 RDW 16.4 H Plt Count 187 MPV 9.1 L Immature Gran % (Auto) Cancelled Neut % (Auto) Cancelled Lymph % (Auto) Cancelled [place] % (Auto) Cancelled Eos % (Auto) Cancelled Baso % (Auto) Cancelled Lymph # (Auto) Cancelled [place] # (Auto) Cancelled Eos # (Auto) Cancelled Baso # (Auto) Cancelled Abs Immat Gran (auto) Cancelled Absolute Neuts (auto) Cancelled Absolute Nucleated RBC 0.210 H Nucleated RBC % (auto) 1.3 H Neutrophils % (Manual) 66 Band Neutrophils % 20 H Lymphocytes % (Manual) 11 L Monocytes % (Manual) 1 L Basophils % (Manual) Metamyelocytes % 2 Abs Neuts (Manual) 14.4 H Lymphocytes # (Manual) 1.8 Monocytes # (Manual) 0.2 Basophils # (Manual) Metamyelocytes # 0.3 Smudge Cells PRESENT Dohle Bodies PRESENT Platelet Estimate NORMAL Plt Morphology Comment NORMAL RBC Morphology NOTED Hypochromasia 1+ (5-14) Spherocytes Target Cells 1+ (5-14) Ovalocytes Stomatocytes 1+ (5-14) Smear Path Review O2 Saturation 91.0 ABG pH at Pt Temp 7.54 H ABG pCO2 at Pt Temp 37 ABG pO2 at Pt Temp 67 L ABG HCO3 33 H ABG Base Excess (Actual) 10.0 Sodium 150 H Potassium 3.0 L Chloride 112 H Carbon Dioxide 26 Anion Gap 15 BUN 12 Creatinine 0.88 Estim Creat Clear Calc 142.7 Estimated GFR > 60 POC Glucose 209 H Random Glucose 238 H Calcium 8.1 L Phosphorus 2.4 L Magnesium 2.1 Albumin 2.8 L Random Vancomycin Blood Type Antibody Screen Crossmatch Microbiology Microbiology Results: Microbiology 09/14/23 10:56 Blood - Venous Blood Culture - Preliminary No growth after 48 hours. 09/14/23 10:40 Blood - Venous Blood Culture - Preliminary No growth after 48 hours. 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, c/b distributive shock N: intubated, sedated w/ propofol, fentanyl, midazolam gtt; wean as tolerated CV: shock, likely septic; norepinephrine gtt; wean as tolerated; QTc prolongation; to monitor closely; judicious use of QTc-prolonging medications R: intubated for serial debridement; wean as tolerated GI: tube feeds : c/f jory's gangrene, s/p debridement 09/13, 09/16; acute renal insufficiency, likely?pre-renal; to monitor renal indices H: anemia, likely multifactorial, iatrogenic, possible upper GI bleed; to avoid chemical DVT prophylaxis amna-operatively; mechanical devices ID: c/f jory's gangrene; empiric vancomycin, zosyn, clindamycin; to follow- up cultures; appreciate general surgery recommendations E: diabetic ketoacidosis, c/b DKA, resolved Quality Stroke Does the patient have a stroke diagnosis?: No VTE Prior VTE?: No VTE Risk Level:: Medical - moderate - high VTE Device Contraindication: N/A - Device Ordered VTE Drug Contraindication: Treatment Not Tolerated
--- NOTE | 2023-09-18 08:36 | HO.POSTANES ---
Post Anesthesia Evaluation Post Anesthesia Evaluation Date of Service: 09/17/23 Vital Signs: Vital Signs Temp Pulse Pulse Resp BP BP Pulse Ox 09/18/23 08:26 97 132/44 L 09/18/23 08:09 99 115/37 L 09/18/23 08:00 97.0 F 95 18 130/44 L 100 09/18/23 07:50 09/18/23 07:49 09/18/23 07:00 100.2 F 93 18 119/42 L 96 09/18/23 06:00 98.2 F 98 20 116/38 L 94 09/18/23 05:48 109 H 107/34 L 09/18/23 05:23 158/48 H 09/18/23 05:12 120 H 145/43 H 09/18/23 05:11 116 H 156/60 H 09/18/23 04:57 09/18/23 04:52 100.4 F 112 H 18 131/42 L 93 09/18/23 04:30 111 H 142/47 H 09/18/23 04:00 09/18/23 03:57 100.4 F 108 H 20 143/44 H 92 09/18/23 03:49 104 H 136/45 L 09/18/23 03:00 100.4 F 109 H 24 H 128/40 L 93 09/18/23 02:26 120 H 104/39 L 09/18/23 02:05 118 H 150/47 H 09/18/23 01:59 112 H 146/47 H 09/18/23 01:57 99.7 F 110 H 25 H 158/52 H 99 09/18/23 00:56 100.6 F H 107 H 20 128/39 L 95 09/18/23 00:00 103 H 120/35 L 09/17/23 23:53 108 H 21 H 120/33 L 96 09/17/23 23:47 09/17/23 23:44 100.2 F 112 H 20 138/38 L 09/17/23 23:34 09/17/23 23:00 100.6 F H 105 H 20 133/41 L 96 09/17/23 22:05 115 H 119/46 L 09/17/23 22:05 115 H 119/46 L 09/17/23 22:00 100.6 F H 113 H 20 119/44 L 97 09/17/23 21:53 100.6 F H 113 H 24 H 109/43 L 09/17/23 21:29 100.6 F H 116 H 20 119/43 L 09/17/23 21:00 100.6 F H 115 H 21 H 118/45 L 97 09/17/23 20:52 111 H 107/44 L 09/17/23 20:50 111 H 121/47 L O2 Del Method FiO2 09/18/23 08:26 09/18/23 08:09 09/18/23 08:00 Mechanical Ventilation 30 09/18/23 07:50 35 09/18/23 07:49 35 09/18/23 07:00 Mechanical Ventilation 30 09/18/23 06:00 Mechanical Ventilation 35 09/18/23 05:48 09/18/23 05:23 09/18/23 05:12 09/18/23 05:11 09/18/23 04:57 35 09/18/23 04:52 Mechanical Ventilation 09/18/23 04:30 09/18/23 04:00 30 09/18/23 03:57 Mechanical Ventilation 30 09/18/23 03:49 09/18/23 03:00 Mechanical Ventilation 30 09/18/23 02:26 09/18/23 02:05 09/18/23 01:59 09/18/23 01:57 Mechanical Ventilation 30 09/18/23 00:56 Mechanical Ventilation 30 09/18/23 00:00 09/17/23 23:53 Mechanical Ventilation 30 09/17/23 23:47 30 09/17/23 23:44 09/17/23 23:34 30 09/17/23 23:00 Mechanical Ventilation 30 09/17/23 22:05 09/17/23 22:05 09/17/23 22:00 Mechanical Ventilation 25 09/17/23 21:53 09/17/23 21:29 09/17/23 21:00 Mechanical Ventilation 30 09/17/23 20:52 09/17/23 20:50 Anesthesia: General Endotracheal-GETA Mental Status: Sedated (intubated, on levofed and prop infusion) Pain Control: Satisfactory Nausea/Vomiting: None Hydration: Adequate Anesthesia-Related Issues: No Anes. Related Issues
[2023-09-18] MEDS: Calcium Chloride 1 GM/10 ML SYRINGE IVPUSH (08:56)
--- NOTE | 2023-09-18 09:33 | MHC.CLN ---
F/U PT IS INTUBATED AND SEDATED DISCUSSED AT ROUNDS WITH MD NOTED ELEVATED SERUM NA-FWF TO REAMIN AT 300ML Q 6 HRS PER PT RECEIVING PROMOTE AT MAX GOAL RATE 35ML/HR WITH 30ML PROSOURCE BID AND 300ML FREE WATER FLUSHES Q 6 HRS PROVIDES 960KCALS (1690KCALS WITH SEDATION; 26KCALS/KG BASED ON IBW), 82.5G TOTAL PROTEIN (1.26G/KG), 1905ML TOTAL WATER FROM FORMULA AND FLUSHES (29ML/KG BASED ON IBW) CONTINUE TO MONITOR TOLERANCE AND LYTES
[2023-09-18] MEDS: propofoL 1,000 MG/100 ML VIAL 27.65 MG IVCONT (10:08)
[2023-09-18] MEDS: Chlorothiazide Sodium 500 MG VIAL IVPUSH (10:09)
[2023-09-18] MEDS: vancomycin HCL 1,250 MG in 0.9 % Sodium Chloride 250 ML 166.67 MG IV ×2 (10:40→23:11)
[2023-09-18 11:20] LABS: Glucose, Whole Blood 197 mg/dL (60-115)
[2023-09-18] MEDS: fentaNYL citrate/NS 1,000 MCG/100 ML PLAST..BAG 12.5 MCG IVCONT ×2 (13:07→20:48)
[2023-09-18] MEDS: Norepinephrine Bitartrate/D5W 8 MG/250 ML PLAST..BAG 19.23 MG IV (15:03)
[2023-09-18] MEDS: Sodium Hypochlorite 0.125% 473 ML SOLUTION 1 APPL TOPICAL (15:04)
--- NOTE | 2023-09-18 15:30 | P.PNGS_ITS ---
Subjective Subjective Date of Service: 09/18/23 Interval history: No significant changes Remains intubated and sedated Very low-dose pressors Physical Exam 2 Vital Signs: Vital Signs: Last Vital Signs Temp 101.0 F H 09/18/23 15:00 Pulse 74 09/18/23 15:20 Resp 18 09/18/23 15:00 BP 122/45 L 09/18/23 15:20 Pulse Ox 97 09/18/23 15:00 O2 Del Method Mechanical Ventil ation 09/18/23 15:00 O2 Flow Rate 2.0 09/14/23 12:13 FiO2 35 09/18/23 15:25 BMI result Body Mass Index 52.5 Const: Other: On the ventilator, intubated Resp: Other: On ventilator Cardio: Rate: regular rate GI: Palpation (GI): Soft to palpation Back/Spine/Pelvis: Other: Large open wound on the area of the right buttock posterior thigh extending centrally and to the medial area, clean, no significant pus, no significant necrotic areas Objective Data Active Medications Acetaminophen (Acetaminophen Oral Liquid 650 Mg/20.3 Ml Solution) 650 mg PO Q4H PRN PRN Reason: Fever Last Admin: 09/18/23 04:57 Dose: 650 mg Documented By: REBECCA Chlorhexidine Gluconate (Chlorhexidine Gluc Oral Rinse 15 Ml Mouthwash) 15 ml BUCCAL TID [facility] Last Admin: 09/18/23 15:10 Dose: 15 ml Documented By: LUIS Glucose (Glucose Gel 15 Gm Gel..Gram.) 15 gm PO Q15M PRN; Protocol PRN Reason: per Hypoglycemia Standing Ord. Norepinephrine Bitartrate (Levophed) 8 mg in 250 mls @ 0 mls/hr IV .Q0M [facility]; Protocol Last Admin: 09/18/23 15:03 Dose: 0.07 mcg/kg/min, 19.23 mls/hr Documented By: LUIS Clindamycin Phosphate (Cleocin) 600 mg in 50 mls @ 100 mls/hr IV Q8H [facility] Last Infusion: 09/18/23 12:49 Dose: Infused Documented By: LUIS Dextrose (D10) 250 mls @ 750 mls/hr IV Q15M PRN PRN Reason: per Hypoglycemia Standing Ord. Fentanyl (Sublimaze/Ns) 1,000 mcg in 100 mls @ 0 mls/hr IVCONT .Q0M [facility]; Protocol Last Admin: 09/18/23 13:07 Dose: 125 mcg/hr, 12.5 mls/hr Documented By: LUIS Midazolam HCl (Versed) 50 mg in 50 mls @ 2 mls/hr IVCONT .Q24H [facility] Last Infusion: 09/18/23 04:44 Dose: 2 mg/hr, 2 mls/hr Documented By: REBECCA Piperacillin Sod/Tazobactam (Sod 4.5 gm/ Sodium Chloride) 100 mls @ 200 mls/hr IV Q6H [facility] Last Admin: 09/18/23 15:05 Dose: 200 mls/hr Documented By: LUIS Vancomycin HCl 1,250 mg/ (Sodium Chloride) 250 mls @ 166.667 mls/hr IV Q12H [facility] Last Infusion: 09/18/23 12:22 Dose: Infused Documented By: LUIS Propofol (Diprivan) 1,000 mg in 100 mls @ 0 mls/hr IVCONT .Q0M [facility]; Protocol Last Admin: 09/18/23 15:11 Dose: 40 mcg/kg/min, 36.86 mls/hr Documented By: LUIS Insulin Glargine (Insulin Glargine,Hum.Rec.Anlog 100 Unit/Ml 10 Ml Vial) 20 unit SUBCUT BEDTIME [facility] Last Admin: 09/17/23 20:11 Dose: 20 unit Documented By: REBECCA Insulin Glargine (Insulin Glargine,Hum.Rec.Anlog 100 Unit/Ml 10 Ml Vial) 15 unit SUBCUT DAILY [facility] Last Admin: 09/18/23 07:46 Dose: 15 unit Documented By: LUIS Insulin Human Lispro (Insulin Lispro 100 Unit/Ml 3 Ml Vial) 0 unit SUBCUT Q6H [facility]; Protocol Last Admin: 09/18/23 12:00 Dose: 2 unit Documented By: LUIS Naloxone HCl (Naloxone Hcl 0.4 Mg/Ml Vial) 0.2 mg IVPUSH Q2M PRN PRN Reason: Excessive sedation or RR < 8 Pantoprazole Sodium (Pantoprazole Sodium 40 Mg/10 Ml Vial) 40 mg IVPUSH BID@0630,1630 [facility] Last Admin: 09/18/23 15:05 Dose: 40 mg Documented By: LUIS Pharmacy Consult (Consult Rx Vancomycin Dosing) 1 each MISCELLANE DAILY PRN PRN Reason: Consult order Sodium Chloride (0.9 % Sodium Chloride Flush 3 Ml Syringe) 3 ml IVFLUSH QSHIFT [facility] Last Admin: 09/18/23 15:10 Dose: 3 ml Documented By: LUIS Sodium Hypochlorite (Sodium Hypochlorite 0.125% 473 Ml Solution) 1 appl TOPICAL DAILY [facility] Last Admin: 09/18/23 15:04 Dose: 1 appl Documented By: LUIS Labs 09/18/23 05:18 09/18/23 05:18 Labs: Laboratory Results - last 24 hr 09/17/23 09/17/23 09/17/23 17:49 18:09 19:44 MCV 84.8 MCH 28.7 MCHC 33.9 RDW 17.0 H Plt Count 200 MPV 9.3 L Immature Gran % (Auto) Cancelled Neut % (Auto) Cancelled Lymph % (Auto) Cancelled Dare % (Auto) Cancelled Eos % (Auto) Cancelled Baso % (Auto) Cancelled Lymph # (Auto) Cancelled Dare # (Auto) Cancelled Eos # (Auto) Cancelled Baso # (Auto) Cancelled Abs Immat Gran (auto) Cancelled Absolute Neuts (auto) Cancelled Absolute Nucleated RBC 0.180 H Nucleated RBC % (auto) 0.9 H Neutrophils % (Manual) 78 H Band Neutrophils % 15 H Lymphocytes % (Manual) 4 L Monocytes % (Manual) 1 L Basophils % (Manual) 1 Metamyelocytes % 1 Abs Neuts (Manual) 19.3 H Lymphocytes # (Manual) 0.8 L Monocytes # (Manual) 0.2 Basophils # (Manual) 0.2 Metamyelocytes # 0.2 Smudge Cells Dohle Bodies PRESENT Platelet Estimate NORMAL Plt Morphology Comment NORMAL RBC Morphology NOTED Hypochromasia Spherocytes 1+ (0-2) Target Cells 1+ (5-14) Ovalocytes 1+ (5-14) Stomatocytes 1+ (5-14) O2 Saturation ABG pH at Pt Temp ABG pCO2 at Pt Temp ABG pO2 at Pt Temp ABG HCO3 ABG Base Excess (Actual) Anion Gap 18 Estim Creat Clear Calc 153.3 Estimated GFR > 60 POC Glucose 172 H Random Glucose 180 H Calcium 8.3 L Phosphorus 3.5 Magnesium 2.1 Albumin 2.6 L Random Vancomycin 16.9 Blood Type Antibody Screen Crossmatch 09/17/23 09/17/23 09/18/23 20:25 23:21 04:40 MCV MCH MCHC RDW Plt Count MPV Immature Gran % (Auto) Neut % (Auto) Lymph % (Auto) Dare % (Auto) Eos % (Auto) Baso % (Auto) Lymph # (Auto) Dare # (Auto) Eos # (Auto) Baso # (Auto) Abs Immat Gran (auto) Absolute Neuts (auto) Absolute Nucleated RBC Nucleated RBC % (auto) Neutrophils % (Manual) Band Neutrophils % Lymphocytes % (Manual) Monocytes % (Manual) Basophils % (Manual) Metamyelocytes % Abs Neuts (Manual) Lymphocytes # (Manual) Monocytes # (Manual) Basophils # (Manual) Metamyelocytes # Smudge Cells Dohle Bodies Platelet Estimate Plt Morphology Comment RBC Morphology Hypochromasia Spherocytes Target Cells Ovalocytes Stomatocytes O2 Saturation 91.0 ABG pH at Pt Temp 7.54 H ABG pCO2 at Pt Temp 37 ABG pO2 at Pt Temp 67 L ABG HCO3 33 H ABG Base Excess (Actual) 10.0 Anion Gap Estim Creat Clear Calc Estimated GFR POC Glucose 209 H Random Glucose Calcium Phosphorus Magnesium Albumin Random Vancomycin Blood Type A Positive Antibody Screen NEGATIVE Crossmatch See Detail 09/18/23 09/18/23 05:18 11:17 MCV 86.8 MCH 29.2 MCHC 33.6 RDW 16.4 H Plt Count 187 MPV 9.1 L Immature Gran % (Auto) Cancelled Neut % (Auto) Cancelled Lymph % (Auto) Cancelled Dare % (Auto) Cancelled Eos % (Auto) Cancelled Baso % (Auto) Cancelled Lymph # (Auto) Cancelled Dare # (Auto) Cancelled Eos # (Auto) Cancelled Baso # (Auto) Cancelled Abs Immat Gran (auto) Cancelled Absolute Neuts (auto) Cancelled Absolute Nucleated RBC 0.210 H Nucleated RBC % (auto) 1.3 H Neutrophils % (Manual) 66 Band Neutrophils % 20 H Lymphocytes % (Manual) 11 L Monocytes % (Manual) 1 L Basophils % (Manual) Metamyelocytes % 2 Abs Neuts (Manual) 14.4 H Lymphocytes # (Manual) 1.8 Monocytes # (Manual) 0.2 Basophils # (Manual) Metamyelocytes # 0.3 Smudge Cells PRESENT Dohle Bodies PRESENT Platelet Estimate NORMAL Plt Morphology Comment NORMAL RBC Morphology NOTED Hypochromasia 1+ (5-14) Spherocytes Target Cells 1+ (5-14) Ovalocytes Stomatocytes 1+ (5-14) O2 Saturation ABG pH at Pt Temp ABG pCO2 at Pt Temp ABG pO2 at Pt Temp ABG HCO3 ABG Base Excess (Actual) Anion Gap 15 Estim Creat Clear Calc 142.7 Estimated GFR > 60 POC Glucose 197 H Random Glucose 238 H Calcium 8.1 L Phosphorus 2.4 L Magnesium 2.1 Albumin 2.8 L Random Vancomycin Blood Type Antibody Screen Crossmatch Procedures Date of Service Date of Service: 09/18/23 Arterial Line Size (Gauge): 20 Progress Note: A&P Assessment and plan (1) Necrotizing soft tissue infection: Status: Acute Assessment and Plan: Status post multiple debridement done Dressings changed Dakin solution applied to Kerlix gauze packing throughout the entire wound ABD pads applied to cover the area Continue same wound care for now The rest of care as per the copy machine operator Wound looks much washroom cleaner now Time Spent With Patient Time: Total time managing care of this patient today ____ minutes. Quality Stroke Does the patient have a stroke diagnosis?: No VTE Prior VTE?: No VTE Risk Level:: Medical - moderate - high VTE Device Contraindication: N/A - Device Ordered VTE Drug Contraindication: Treatment Not Tolerated
--- NOTE | 2023-09-18 16:35 | P.CDIM_ITS ---
PROVIDER RESPONSE TEXT: To clarify, the appropriate diagnosis supported by the clinical indicators: Hypoalbuminemia QUERY TEXT: PHYSICIAN'S DOCUMENTATION REQUEST Date of Query: 09/18/2023 12:16 PM EDT Patient Name: BRETT BENTLEY Admit Date: 09/14/2023 Dear Felicitas De León MD, A review of the medical record indicates additional documentation may be needed. Please review below and update the documentation accordingly. Clinical Indicators: Albumin Human (Kedbumin 25%) 100 mls @ 100 mls/hr IV Q6H ordered on 09/17/23, 4 bags ordered The following diagnoses or signs and symptoms were noted in the patient record: On 09/17/23, Albumin 2.6 On 09/18/23, Albumin 2.8 Based on the above, could you clarify the appropriate diagnosis, if significant, that supports the ab ove abnormalities and additional evaluation, monitoring, and/or treatment rendered: Hypoalbuminemia Labs indicate a diagnosis of (please specify) Other (explain) Clinically unable to determine (explain) Thank you, Yael Edwards RN Use of terms such as suspected, likely, concern for, or probable (associated with a specific diagnosi s that is being evaluated, monitored, or treated as if it exists) are acceptable and can be coded in the inpatient se tting, when documented at the time of discharge. Please use your independent medical judgment in providing your response. THIS QUERY IS PART OF THE PERMANENT MEDICAL RECORD
[2023-09-18 18:24] LABS: Glucose, Whole Blood 234 mg/dL (60-115)
[2023-09-18 18:44] LABS: Vancomycin Random 18.1 mcg/mL (15-20)
[2023-09-18 18:46] LABS: Anion Gap 16 (12-20); Blood Urea Nitrogen 12 mg/dL (9-16); Calcium 8.7 mg/dL (8.4-10.2); Carbon Dioxide 29 mmol/L (22-29); Chloride 111 mmol/L (96-108); Creatinine Clr Calc Pharmacy 141.1; Estimated Glomerular Filt Rate > 60; Glucose Random 237 mg/dL (60-115); Magnesium 2.4 mg/dL (1.6-2.6); Phosphorus 3.4 mg/dL (2.7-4.5); Potassium 3.4 mmol/L (3.3-5.1); Sodium 153 mmol/L (135-145)
--- NOTE | 2023-09-18 19:14 | HO.SKINPHOTO ---
09/18/2023 14:16 Location: Right posterior thigh and right buttock Category: Cuate's gangrene s/p debridement Dr. Matthew at bedside for assessment and dressing change
[2023-09-18] MEDS: Potassium Chloride/H20 40 MEQ/100 ML PIGGYBACK 100 MEQ IV (19:32)
[2023-09-18] MEDS: Midazolam HCl/NS 50 MG/50 ML PLAST..BAG IVCONT (19:51)
[2023-09-18] MEDS: Insulin Glargine,Hum.rec.anlog 100 UNIT/ML 10 ML VIAL 20 UNIT SUBCUT (21:02)
[2023-09-18 21:08] LABS: Glucose, Whole Blood 215 mg/dL (60-115)
[2023-09-18 23:31] LABS: Glucose, Whole Blood 241 mg/dL (60-115)
[2023-09-19] VITALS (39 sets, daily range): BP systolic 80–146; BP diastolic 41–109; PULSE 59–105; RESP 16–25; TEMP 34.9–37.5; O2SAT 90–100; BMI 52.0
[2023-09-19] MEDS: Piperacillin Sodium/Tazobactam 4.5 GM in 0.9 % Sodium Chloride 100 ML IV ×4 (02:12→19:45)
[2023-09-19] MEDS: propofoL 1,000 MG/100 ML VIAL 36.86 MG IVCONT ×5 (02:33→18:37)
[2023-09-19] MEDS: Norepinephrine Bitartrate/D5W 8 MG/250 ML PLAST..BAG 19.23 MG IV ×2 (03:11→17:10)
[2023-09-19] MEDS: Clindamycin Phosphate/D5W 600 MG/50 ML PIGGYBACK 100 MG IV (03:15)
[2023-09-19] MEDS: fentaNYL citrate/NS 1,000 MCG/100 ML PLAST..BAG 12.5 MCG IVCONT (04:35)
[2023-09-19 05:14] LABS: ABG Base Excess 12.9 mmol/L; ABG HCO3 36 mmol/L (22-26); ABG pCO2 41 mmHg (32-45); ABG pH 7.54 (7.35-7.45); ABG pO2 130 mmHg (83-108)
[2023-09-19 05:20] LABS: Hematocrit 21.5 % (42.0-52.0); Mean Corpuscular HGB Conc 31.6 g/dl (31.0-36.0); Mean Corpuscular Hemoglobin 28.7 pg (27.0-33.0); Mean Corpuscular Volume 90.7 fL (80.0-98.0); Mean Platelet Volume 9.6 fL (9.4-12.4); Platelet Count 202 X10*3/uL (160-400); Red Blood Count 2.37 X10*6/uL (4.60-5.80); Red Cell Distribution Width 16.2 % (11.0-16.0); White Blood Count 16.9 X10*3/uL (4.8-10.8)
[2023-09-19 05:22] LABS: Hemoglobin 6.8 g/dl (14.0-18.0); NRBC Pct Auto 1.1 /100WBC (0.0-0.2)
[2023-09-19] MEDS: Pantoprazole Sodium 40 MG/10 ML VIAL IVPUSH (05:32)
[2023-09-19 05:33] LABS: Anion Gap 18 (12-20); Blood Urea Nitrogen 14 mg/dL (9-16); Calcium 8.5 mg/dL (8.4-10.2); Carbon Dioxide 27 mmol/L (22-29); Chloride 112 mmol/L (96-108); Creatinine Clr Calc Pharmacy 154.2; Estimated Glomerular Filt Rate > 60; Glucose Random 249 mg/dL (60-115); Magnesium 2.5 mg/dL (1.6-2.6); Phosphorus 3.3 mg/dL (2.7-4.5); Potassium 3.6 mmol/L (3.3-5.1); Sodium 153 mmol/L (135-145)
[2023-09-19] MEDS: Insulin Lispro 100 UNIT/ML 3 ML VIAL SUBCUT ×3 (05:38→18:07)
[2023-09-19 06:03] LABS: Band Neutrophils Percent 23 % (3-5); Basophilic Stippling 1+ (0-2) /OIF; Hypochromasia 1+ (5-14) /OIF; Large Platelet PRESENT; Lymphocytes Percent Manual 12 % (20-40); Macrocytosis 1+ (5-14) /OIF; Metamyelocytes Absolute 0.5 X10*3/uL; Metamyelocytes Percent 3 %; Monocytes Absolute Manual 0.2 X10*3/uL (0.1-1.2); Monocytes Percent Manual 1 % (2-11); Neutrophils Absolute Manual 14.2 X10*3/uL (2.0-8.3); Neutrophils Percent Manual 61 % (45-73); Platelet Estimate NORMAL (NORMAL); Platelet Morphology Comment NOTED; RBC Morphology NOTED; Stomatocytes 1+ (5-14) /OIF
[2023-09-19 06:04] LABS: Polychromasia 2+ (3-5) /OIF; Smudge Cells PRESENT
[2023-09-19] MEDS: 0.9 % Sodium Chloride Flush 3 ML SYRINGE IVFLUSH ×3 (07:50→23:16)
[2023-09-19] MEDS: Insulin Glargine,Hum.rec.anlog 100 UNIT/ML 10 ML VIAL 15 UNIT SUBCUT (07:51)
[2023-09-19] MEDS: Chlorhexidine Gluc Oral Rinse 15 ML MOUTHWASH BUCCAL ×3 (07:51→20:17)
--- NOTE | 2023-09-19 09:33 | MHC.CLN ---
F/U PT IS INTUBATED AND SEDATED DISCUSSED AT ROUNDS WITH MD NOTED ELEVATED SERUM NA-FWF TO INCREASE 300ML Q 4 HRS PER MD PT TO RECEIVE PROMOTE AT MAX GOAL RATE 35ML/HR WITH 30ML PROSOURCE BID AND 300ML FREE WATER FLUSHES Q 4 HRS TO PROVIDE 960KCALS (1933KCALS WITH SEDATION; 30KCALS/KG BASED ON IBW), 82.5G TOTAL PROTEIN (1.26G/KG), 2505ML TOTAL WATER FROM FORMULA AND FLUSHES (38.5ML/KG BASED ON IBW) CONTINUE TO MONITOR TOLERANCE AND LYTES
--- NOTE | 2023-09-19 09:44 | PM.CCPN ---
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 No events overnight. Critical Care Time (minutes): 60 Physical Exam Vital Signs: Vital Signs: Last Vital Signs Temp 99.1 F 09/19/23 09:00 Pulse 75 09/19/23 09:00 Resp 18 09/19/23 09:00 BP 129/61 09/19/23 09:00 Pulse Ox 90 L 09/19/23 09:00 O2 Del Method Mechanical Ventil ation 09/19/23 09:00 O2 Flow Rate 2.0 09/14/23 12:13 FiO2 28 09/19/23 09:00 BMI result Body Mass Index 52.0 Const: General: no acute distress and other (Sedated on the vent) Nutritional Appearance: obese Eyes: Sclerae: sclerae normal EOM: EOMs intact bilaterally Neck: Neck: Yes no lymphadenopathy, Yes trachea midline and Yes supple Resp: Auscultation: clear to auscultation bilaterally Cardio: Rate: regular rate Rhythm: regular rhythm Heart sounds: no gallops, no murmurs and no rubs GI: Palpation (GI): Soft to palpation and Other GI palpation findings present ( Nontender) Auscultation: normal bowel sounds Extrem: General: Yes no pedal edema, No clubbing and No cyanosis Objective Data Labs 09/19/23 05:02 09/19/23 05:01 Labs: Laboratory Results - last 24 hr 09/17/23 09/18/23 09/18/23 20:25 11:17 18:12 WBC RBC Hgb Hct MCV MCH MCHC RDW Plt Count MPV Immature Gran % (Auto) Neut % (Auto) Lymph % (Auto) [place] % (Auto) Eos % (Auto) Baso % (Auto) Lymph # (Auto) [place] # (Auto) Eos # (Auto) Baso # (Auto) Abs Immat Gran (auto) Absolute Neuts (auto) Absolute Nucleated RBC Nucleated RBC % (auto) Neutrophils % (Manual) Band Neutrophils % Lymphocytes % (Manual) Monocytes % (Manual) Metamyelocytes % Abs Neuts (Manual) Lymphocytes # (Manual) Monocytes # (Manual) Metamyelocytes # Smudge Cells Platelet Estimate Large Platelets Plt Morphology Comment RBC Morphology Polychromasia Hypochromasia Basophilic Stippling Macrocytosis Stomatocytes O2 Saturation ABG pH at Pt Temp ABG pCO2 at Pt Temp ABG pO2 at Pt Temp ABG HCO3 ABG Base Excess (Actual) Sodium 153 H Potassium 3.4 Chloride 111 H Carbon Dioxide 29 Anion Gap 16 BUN 12 Creatinine 0.89 Estim Creat Clear Calc 141.1 Estimated GFR > 60 POC Glucose 197 H Random Glucose 237 H Calcium 8.7 D Phosphorus 3.4 Magnesium 2.4 Random Vancomycin 18.1 Blood Type A Positive Antibody Screen NEGATIVE Crossmatch See Detail 09/18/23 09/18/23 09/18/23 18:21 21:02 23:27 WBC RBC Hgb Hct MCV MCH MCHC RDW Plt Count MPV Immature Gran % (Auto) Neut % (Auto) Lymph % (Auto) [place] % (Auto) Eos % (Auto) Baso % (Auto) Lymph # (Auto) [place] # (Auto) Eos # (Auto) Baso # (Auto) Abs Immat Gran (auto) Absolute Neuts (auto) Absolute Nucleated RBC Nucleated RBC % (auto) Neutrophils % (Manual) Band Neutrophils % Lymphocytes % (Manual) Monocytes % (Manual) Metamyelocytes % Abs Neuts (Manual) Lymphocytes # (Manual) Monocytes # (Manual) Metamyelocytes # Smudge Cells Platelet Estimate Large Platelets Plt Morphology Comment RBC Morphology Polychromasia Hypochromasia Basophilic Stippling Macrocytosis Stomatocytes O2 Saturation ABG pH at Pt Temp ABG pCO2 at Pt Temp ABG pO2 at Pt Temp ABG HCO3 ABG Base Excess (Actual) Sodium Potassium Chloride Carbon Dioxide Anion Gap BUN Creatinine Estim Creat Clear Calc Estimated GFR POC Glucose 234 H 215 H 241 H Random Glucose Calcium Phosphorus Magnesium Random Vancomycin Blood Type Antibody Screen Crossmatch 09/19/23 09/19/23 09/19/23 05:01 05:02 05:05 WBC 16.9 H RBC 2.37 L Hgb 6.8 L* Hct 21.5 L MCV 90.7 MCH 28.7 MCHC 31.6 RDW 16.2 H Plt Count 202 MPV 9.6 Immature Gran % (Auto) Cancelled Neut % (Auto) Cancelled Lymph % (Auto) Cancelled [place] % (Auto) Cancelled Eos % (Auto) Cancelled Baso % (Auto) Cancelled Lymph # (Auto) Cancelled [place] # (Auto) Cancelled Eos # (Auto) Cancelled Baso # (Auto) Cancelled Abs Immat Gran (auto) Cancelled Absolute Neuts (auto) Cancelled Absolute Nucleated RBC 0.190 H Nucleated RBC % (auto) 1.1 H Neutrophils % (Manual) 61 Band Neutrophils % 23 H Lymphocytes % (Manual) 12 L Monocytes % (Manual) 1 L Metamyelocytes % 3 Abs Neuts (Manual) 14.2 H Lymphocytes # (Manual) 2.0 Monocytes # (Manual) 0.2 Metamyelocytes # 0.5 Smudge Cells PRESENT Platelet Estimate NORMAL Large Platelets PRESENT Plt Morphology Comment NOTED RBC Morphology NOTED Polychromasia 2+ (3-5) Hypochromasia 1+ (5-14) Basophilic Stippling 1+ (0-2) Macrocytosis 1+ (5-14) Stomatocytes 1+ (5-14) O2 Saturation 97.0 ABG pH at Pt Temp 7.54 H ABG pCO2 at Pt Temp 41 ABG pO2 at Pt Temp 130 H ABG HCO3 36 H ABG Base Excess (Actual) 12.9 Sodium 153 H Potassium 3.6 Chloride 112 H Carbon Dioxide 27 Anion Gap 18 BUN 14 Creatinine 0.81 Estim Creat Clear Calc 154.2 Estimated GFR > 60 POC Glucose Random Glucose 249 H Calcium 8.5 Phosphorus 3.3 Magnesium 2.5 Random Vancomycin Blood Type Antibody Screen Crossmatch Microbiology Microbiology Results: Microbiology 09/14/23 10:56 Blood - Venous Blood Culture - Preliminary No growth after 48 hours. 09/14/23 10:40 Blood - Venous Blood Culture - Preliminary No growth after 48 hours. Progress Note: A&P Assessment and plan (1) Necrotizing soft tissue infection: Status: Acute (2) Morbid obesity: Status: Acute (3) Cuate gangrene: Status: Acute (4) Type 2 diabetes mellitus: Status: Acute Plan Assessment: 48-year-old gentleman with underlying morbid obesity and diabetes mellitus admitted with Cuate's gangrene requiring multiple debridements for which he remains intubated. Plan: Neuro: No acute issues. Cardiac: No acute issues. Pulmonary: Remains intubated for multiple consecutive debridements in the emergency room. Renal: No acute issues. Endo: No acute issues. Underlying diabetes mellitus. GI: No acute issues. ID: Caute's gangrene with no initial wound culture. Continue Zosyn/vancomycin. Will stop clindamycin. General surgery service care appreciated. Heme/Onc: Subacute blood-loss anemia secondary to oozing at debridement site. Continue transfusion support with hemoglobin threshold of 7 grams/deciliter. Psych: No acute issues. Miscellaneous: No acute issues. Prophylaxis: Pneumatic compression, ppi Diet: Tube feeds Critical care time spent: 60 minutes Quality Stroke Does the patient have a stroke diagnosis?: No VTE Prior VTE?: No VTE Risk Level:: Medical - moderate - high VTE Device Contraindication: N/A - Device Ordered VTE Drug Contraindication: Treatment Not Tolerated
[2023-09-19] MEDS: vancomycin HCL 1,250 MG in 0.9 % Sodium Chloride 250 ML 166.67 MG IV ×2 (11:18→22:41)
[2023-09-19] MEDS: Lactulose 20 GM/30 ML SOLUTION 30 GM PO ×2 (11:18→20:21)
[2023-09-19 11:27] LABS: Glucose, Whole Blood 200 mg/dL (60-115)
--- NOTE | 2023-09-19 13:00 | P.PNGS_ITS ---
Subjective Subjective Date of Service: 09/19/23 <Savannah Chavez PA-C - Last Filed: 09/19/23 13:06> 09/20/23 <Michael Matthew MD - Last Filed: 09/20/23 08:23> Interval history: Remains sedated, intubated. ICU team hoping to extubate soon. <Savannah Chavez PA-C - Last Filed: 09/19/23 13:06> Physical Exam 2 Vital Signs: Vital Signs: Last Vital Signs Temp 99.4 F 09/19/23 12:00 Pulse 70 09/19/23 12:00 Resp 20 09/19/23 12:00 BP 114/51 L 09/19/23 12:00 Pulse Ox 93 09/19/23 12:00 O2 Del Method Mechanical Ventil ation 09/19/23 12:00 O2 Flow Rate 2.0 09/14/23 12:13 FiO2 28 09/19/23 12:00 BMI result Body Mass Index 52.0 <Savannah Chavez PA-C - Last Filed: 09/19/23 13:06> Resp: Other: on vent, regular rate <Savannah Chavez PA-C - Last Filed: 09/19/23 13:06> Skin: Other: large open wound of the right buttock posterior thigh overall clean appearing, no significant necrotic areas but inferiorly with small region of fibropurulent tissue, no overt necrosis of purulent drainage <Savannah Chavez PA-C - Last Filed: 09/19/23 13:06> Objective Data Active Medications Acetaminophen (Acetaminophen Oral Liquid 650 Mg/20.3 Ml Solution) 650 mg PO Q4H PRN PRN Reason: Fever Last Admin: 09/18/23 04:57 Dose: 650 mg Documented By: REBECCA Chlorhexidine Gluconate (Chlorhexidine Gluc Oral Rinse 15 Ml Mouthwash) 15 ml BUCCAL TID VIKTORIYA Last Admin: 09/19/23 07:51 Dose: 15 ml Documented By: LUIS Glucose (Glucose Gel 15 Gm Gel..Gram.) 15 gm PO Q15M PRN; Protocol PRN Reason: per Hypoglycemia Standing Ord. Norepinephrine Bitartrate (Levophed) 8 mg in 250 mls @ 0 mls/hr IV .Q0M [facility]; Protocol Last Admin: 09/19/23 03:11 Dose: 0.07 mcg/kg/min, 19.23 mls/hr Documented By: CHANCE Dextrose (D10) 250 mls @ 750 mls/hr IV Q15M PRN PRN Reason: per Hypoglycemia Standing Ord. Fentanyl (Sublimaze/Ns) 1,000 mcg in 100 mls @ 0 mls/hr IVCONT .Q0M VIKTORIYA; Protocol Last Titration: 09/19/23 07:44 Dose: 100 mcg/hr, 10 mls/hr Documented By: LUIS Midazolam HCl (Versed) 50 mg in 50 mls @ 2 mls/hr IVCONT .Q24H VIKTORIYA Last Admin: 09/18/23 19:51 Dose: 2 mg/hr, 2 mls/hr Documented By: CHANCE Piperacillin Sod/Tazobactam (Sod 4.5 gm/ Sodium Chloride) 100 mls @ 200 mls/hr IV Q6H VIKTORIYA Last Infusion: 09/19/23 08:39 Dose: Infused Documented By: LUIS Vancomycin HCl 1,250 mg/ (Sodium Chloride) 250 mls @ 166.667 mls/hr IV Q12H VIKTORIYA Last Admin: 09/19/23 11:18 Dose: 166.67 mls/hr Documented By: LUIS Propofol (Diprivan) 1,000 mg in 100 mls @ 0 mls/hr IVCONT .Q0M VIKTORIYA; Protocol Last Admin: 09/19/23 11:31 Dose: 40 mcg/kg/min, 36.86 mls/hr Documented By: LUIS Insulin Glargine (Insulin Glargine,Hum.Rec.Anlog 100 Unit/Ml 10 Ml Vial) 20 unit SUBCUT BEDTIME VIKTORIYA Last Admin: 09/18/23 21:02 Dose: 20 unit Documented By: CHANCE Insulin Glargine (Insulin Glargine,Hum.Rec.Anlog 100 Unit/Ml 10 Ml Vial) 15 unit SUBCUT DAILY VIKTORIYA Last Admin: 09/19/23 07:51 Dose: 15 unit Documented By: LUIS Insulin Human Lispro (Insulin Lispro 100 Unit/Ml 3 Ml Vial) 0 unit SUBCUT Q6H VIKTORIYA; Protocol Last Admin: 09/19/23 11:27 Dose: 2 unit Documented By: LUIS Lactulose (Lactulose 20 Gm/30 Ml Solution) 30 gm PO BID [facility] Last Admin: 09/19/23 11:18 Dose: 30 gm Documented By: LUIS Naloxone HCl (Naloxone Hcl 0.4 Mg/Ml Vial) 0.2 mg IVPUSH Q2M PRN PRN Reason: Excessive sedation or RR < 8 Pantoprazole Sodium (Pantoprazole Sodium 40 Mg/10 Ml Vial) 40 mg IVPUSH BID@0630,1630 [facility] Last Admin: 09/19/23 05:32 Dose: 40 mg Documented By: CHANCE Pharmacy Consult (Consult Rx Vancomycin Dosing) 1 each MISCELLANE DAILY PRN PRN Reason: Consult order Sodium Chloride (0.9 % Sodium Chloride Flush 3 Ml Syringe) 3 ml IVFLUSH QSHIFT [facility] Last Admin: 09/19/23 07:50 Dose: 3 ml Documented By: LUIS Sodium Hypochlorite (Sodium Hypochlorite 0.125% 473 Ml Solution) 1 appl TOPICAL DAILY [facility] Last Admin: 09/18/23 15:04 Dose: 1 appl Documented By: LUIS <Savannah Chavez PA-C - Last Filed: 09/19/23 13:06> Labs CBC & Chem 7: 09/20/23 05:40 09/20/23 05:40 <Savannah Chavez PA-C - Last Filed: 09/19/23 13:06> Labs: Laboratory Results - last 24 hr 09/17/23 09/18/23 09/18/23 20:25 18:12 18:21 MCV MCH MCHC RDW Plt Count MPV Immature Gran % (Auto) Neut % (Auto) Lymph % (Auto) [place] % (Auto) Eos % (Auto) Baso % (Auto) Lymph # (Auto) [place] # (Auto) Eos # (Auto) Baso # (Auto) Abs Immat Gran (auto) Absolute Neuts (auto) Absolute Nucleated RBC Nucleated RBC % (auto) Neutrophils % (Manual) Band Neutrophils % Lymphocytes % (Manual) Monocytes % (Manual) Metamyelocytes % Abs Neuts (Manual) Lymphocytes # (Manual) Monocytes # (Manual) Metamyelocytes # Smudge Cells Platelet Estimate Large Platelets Plt Morphology Comment RBC Morphology Polychromasia Hypochromasia Basophilic Stippling Macrocytosis Stomatocytes O2 Saturation ABG pH at Pt Temp ABG pCO2 at Pt Temp ABG pO2 at Pt Temp ABG HCO3 ABG Base Excess (Actual) Anion Gap 16 Estim Creat Clear Calc 141.1 Estimated GFR > 60 POC Glucose 234 H Random Glucose 237 H Calcium 8.7 D Phosphorus 3.4 Magnesium 2.4 Random Vancomycin 18.1 Blood Type A Positive Antibody Screen NEGATIVE Crossmatch See Detail 09/18/23 09/18/23 09/19/23 21:02 23:27 05:01 MCV MCH MCHC RDW Plt Count MPV Immature Gran % (Auto) Neut % (Auto) Lymph % (Auto) [place] % (Auto) Eos % (Auto) Baso % (Auto) Lymph # (Auto) [place] # (Auto) Eos # (Auto) Baso # (Auto) Abs Immat Gran (auto) Absolute Neuts (auto) Absolute Nucleated RBC Nucleated RBC % (auto) Neutrophils % (Manual) Band Neutrophils % Lymphocytes % (Manual) Monocytes % (Manual) Metamyelocytes % Abs Neuts (Manual) Lymphocytes # (Manual) Monocytes # (Manual) Metamyelocytes # Smudge Cells Platelet Estimate Large Platelets Plt Morphology Comment RBC Morphology Polychromasia Hypochromasia Basophilic Stippling Macrocytosis Stomatocytes O2 Saturation ABG pH at Pt Temp ABG pCO2 at Pt Temp ABG pO2 at Pt Temp ABG HCO3 ABG Base Excess (Actual) Anion Gap 18 Estim Creat Clear Calc 154.2 Estimated GFR > 60 POC Glucose 215 H 241 H Random Glucose 249 H Calcium 8.5 Phosphorus 3.3 Magnesium 2.5 Random Vancomycin Blood Type Antibody Screen Crossmatch 09/19/23 09/19/23 09/19/23 05:02 05:05 11:23 MCV 90.7 MCH 28.7 MCHC 31.6 RDW 16.2 H Plt Count 202 MPV 9.6 Immature Gran % (Auto) Cancelled Neut % (Auto) Cancelled Lymph % (Auto) Cancelled [place] % (Auto) Cancelled Eos % (Auto) Cancelled Baso % (Auto) Cancelled Lymph # (Auto) Cancelled [place] # (Auto) Cancelled Eos # (Auto) Cancelled Baso # (Auto) Cancelled Abs Immat Gran (auto) Cancelled Absolute Neuts (auto) Cancelled Absolute Nucleated RBC 0.190 H Nucleated RBC % (auto) 1.1 H Neutrophils % (Manual) 61 Band Neutrophils % 23 H Lymphocytes % (Manual) 12 L Monocytes % (Manual) 1 L Metamyelocytes % 3 Abs Neuts (Manual) 14.2 H Lymphocytes # (Manual) 2.0 Monocytes # (Manual) 0.2 Metamyelocytes # 0.5 Smudge Cells PRESENT Platelet Estimate NORMAL Large Platelets PRESENT Plt Morphology Comment NOTED RBC Morphology NOTED Polychromasia 2+ (3-5) Hypochromasia 1+ (5-14) Basophilic Stippling 1+ (0-2) Macrocytosis 1+ (5-14) Stomatocytes 1+ (5-14) O2 Saturation 97.0 ABG pH at Pt Temp 7.54 H ABG pCO2 at Pt Temp 41 ABG pO2 at Pt Temp 130 H ABG HCO3 36 H ABG Base Excess (Actual) 12.9 Anion Gap Estim Creat Clear Calc Estimated GFR POC Glucose 200 H Random Glucose Calcium Phosphorus Magnesium Random Vancomycin Blood Type Antibody Screen Crossmatch <Savannah Chavez PA-C - Last Filed: 09/19/23 13:06> Procedures Date of Service Date of Service: 09/19/23 <Savannah Chavez PA-C - Last Filed: 09/19/23 13:06> 09/20/23 <Michael Matthew MD - Last Filed: 09/20/23 08:23> Arterial Line Size (Gauge): 20 <Savannah Chavez PA-C - Last Filed: 09/19/23 13:06> Progress Note: A&P Assessment and plan (1) Necrotizing soft tissue infection: Status: Acute <Savannah Chavez PA-C - Last Filed: 09/19/23 13:06> Assessment and Plan: Dressings changed at bedside Healthy looking wound Dakin's packing placed with Kerlix rolls Does not appear that he may need debridement in the OR for now We will continue to follow for wound care Seen and examined independently <Michael Matthew MD - Last Filed: 09/20/23 08:23> (2) Type 2 diabetes mellitus: Status: Acute <Savannah Chavez PA-C - Last Filed: 09/19/23 13:06> Assessment and Plan: Status post multiple excisional debridements for necrotizing soft tissue infection of right buttock/posterior thigh. Dressings changed today, wound continues to appear overall improved, small area inferiorly with some fibropurulent tissue- needs good application of dakins soaked packing to area. No further surgical debridement needed unless wound worsens. Cont daily wound care with Dakins soaked Kerlix roll packing to entire wound base followed by fluffs and abd dressing, tape. Remainder of care as per the motor vehicle representative. <Savannah Chavez PA-C - Last Filed: 09/19/23 13:06> Time Spent With Patient Time: Total time managing care of this patient today ____ minutes. <Savannah Chavez PA-C - Last Filed: 09/19/23 13:06> Quality Stroke Does the patient have a stroke diagnosis?: No <Savannah Chavez PA-C - Last Filed: 09/19/23 13:06> VTE Prior VTE?: No <Savannah Chavez PA-C - Last Filed: 09/19/23 13:06> VTE Risk Level:: Medical - moderate - high <Savannah Chavez PA-C - Last Filed: 09/19/23 13:06> VTE Device Contraindication: N/A - Device Ordered <Savannah Chavez PA-C - Last Filed: 09/19/23 13:06> VTE Drug Contraindication: Treatment Not Tolerated <INOCENTE Ortega Last Filed: 09/19/23 13:06>
[2023-09-19] MEDS: Sodium Hypochlorite 0.125% 473 ML SOLUTION 1 APPL TOPICAL (13:10)
[2023-09-19] MEDS: fentaNYL citrate/NS 1,000 MCG/100 ML PLAST..BAG 10 MCG IVCONT (13:24)
[2023-09-19] MEDS: propofoL 1,000 MG/100 ML VIAL 27.65 MG IVCONT ×2 (14:49→14:54)
[2023-09-19] MEDS: Furosemide 20 MG/2 ML VIAL IVPUSH ×2 (14:57→19:44)
--- NOTE | 2023-09-19 15:48 | MHC.CM.PN ---
EMR REVIEWED. PT REMAINS INBUTED, SEDATED IN ICU S/P MULTIPLE EXCISIONAL DEBRIDEMENTS OF NECROTIZING SOFT TISSUE RIGHT BUTTOCK/POSTERIOR THIGH. [facility] UPDATED WITH ANTICIPATION OF REQUIRING EXTENSIVE WOUND CARE ON DC. CM WILL CONTINUE TO FOLLOW FOR ANY CHANGE TO DC PLAN/NEEDS
[2023-09-19] MEDS: Midazolam HCl/NS 50 MG/50 ML PLAST..BAG IVCONT (17:18)
[2023-09-19 18:08] LABS: Glucose, Whole Blood 206 mg/dL (60-115)
--- NOTE | 2023-09-19 18:45 | HO.SKINPHOTO ---
Location: right lateral and posterior upper thigh Category: jory's gangrene Location: left buttock Category: MASD
[2023-09-19 19:23] LABS: Hematocrit 24.4 % (42.0-52.0); Hemoglobin 8.1 g/dl (14.0-18.0); Mean Corpuscular HGB Conc 33.2 g/dl (31.0-36.0); Mean Corpuscular Hemoglobin 29.9 pg (27.0-33.0); Mean Platelet Volume 9.3 fL (9.4-12.4); NRBC Pct Auto 0.6 /100WBC (0.0-0.2); Platelet Count 235 X10*3/uL (160-400); Red Blood Count 2.71 X10*6/uL (4.60-5.80); Red Cell Distribution Width 15.5 % (11.0-16.0); White Blood Count 21.6 X10*3/uL (4.8-10.8)
[2023-09-19 19:49] LABS: Band Neutrophils Percent 14 % (3-5); Basophils Abs Manual 0.2 X10*3/uL (0.0-0.2); Basophils Percent Manual 1 % (0-2); Eosinophils Absolute Manual 0.4 X10*3/uL (0.0-0.4); Eosinophils Percent Manual 2 % (0-4); Lymphocytes Absolute Manual 1.1 X10*3/uL (1.2-4.9); Lymphocytes Percent Manual 5 % (20-40); Metamyelocytes Absolute 0.2 X10*3/uL; Metamyelocytes Percent 1 %; Monocytes Absolute Manual 1.1 X10*3/uL (0.1-1.2); Monocytes Percent Manual 5 % (2-11); Neutrophils Absolute Manual 18.6 X10*3/uL (2.0-8.3); Neutrophils Percent Manual 72 % (45-73); Nucleated Red Blood Cells 1 /100WBC (0-0); Platelet Estimate NORMAL (NORMAL); Platelet Morphology Comment NORMAL; RBC Morphology NOTED; Spherocytes 1+ (0-2) /OIF; Stomatocytes 1+ (5-14) /OIF
[2023-09-19 19:51] LABS: Macrocytosis 1+ (5-14) /OIF; Smudge Cells PRESENT
[2023-09-19 19:52] LABS: Anion Gap 13 (12-20); Blood Urea Nitrogen 13 mg/dL (9-16); Carbon Dioxide 32 mmol/L (22-29); Chloride 111 mmol/L (96-108); Creatinine Clr Calc Pharmacy 171.2; Estimated Glomerular Filt Rate > 60; Glucose Random 198 mg/dL (60-115); Magnesium 2.1 mg/dL (1.6-2.6); Phosphorus 2.9 mg/dL (2.7-4.5); Sodium 153 mmol/L (135-145)
[2023-09-19] MEDS: Potassium Chloride/H20 40 MEQ/100 ML PIGGYBACK 50 MEQ IV ×2 (20:04→22:40)
[2023-09-19] MEDS: Calcium Gluconate/NaCl,Iso-Osm 1 GM/50 ML PLAST..BAG IV (20:12)
[2023-09-19] MEDS: Sodium,Potassium Phosphates POWD.PACK 2 PACKET PO (20:17)
[2023-09-19] MEDS: propofoL 1,000 MG/100 ML VIAL 46.08 MG IVCONT ×2 (21:11→23:07)
[2023-09-19] MEDS: Insulin Glargine,Hum.rec.anlog 100 UNIT/ML 10 ML VIAL 20 UNIT SUBCUT (21:23)
[2023-09-19 21:28] LABS: Glucose, Whole Blood 193 mg/dL (60-115)
[2023-09-19] MEDS: fentaNYL citrate/NS 1,000 MCG/100 ML PLAST..BAG 15 MCG IVCONT (21:37)
[2023-09-19 21:53] LABS: Vancomycin Random 14.7 mcg/mL (15-20)
[2023-09-19 22:19] LABS: ABG Refer to POC result
[2023-09-19 23:19] LABS: Potassium 2.9 mmol/L (3.3-5.1)
[2023-09-20] VITALS (42 sets, daily range): BP systolic 96–144; BP diastolic 36–87; PULSE 72–118; RESP 11–22; TEMP 34.5–38.1; O2SAT 90–100; BMI 51.6
[2023-09-20 00:54] LABS: Glucose, Whole Blood 195 mg/dL (60-115)
[2023-09-20] MEDS: Insulin Lispro 100 UNIT/ML 3 ML VIAL SUBCUT ×4 (00:55→17:43)
[2023-09-20] MEDS: Potassium Chloride/H20 40 MEQ/100 ML PIGGYBACK 100 MEQ IV (01:19)
[2023-09-20] MEDS: Piperacillin Sodium/Tazobactam 4.5 GM in 0.9 % Sodium Chloride 100 ML IV ×4 (01:21→19:59)
[2023-09-20] MEDS: propofoL 1,000 MG/100 ML VIAL 46.08 MG IVCONT ×3 (01:24→05:52)
[2023-09-20] MEDS: fentaNYL citrate/NS 1,000 MCG/100 ML PLAST..BAG 15 MCG IVCONT ×2 (03:22→09:36)
[2023-09-20] MEDS: Norepinephrine Bitartrate/D5W 8 MG/250 ML PLAST..BAG 24.72 MG IV (05:19)
[2023-09-20 05:51] LABS: VBG HCO3 38 mmol/L (22-26); VBG pCO2 45 mmHg; VBG pH 7.53 (7.32-7.43); VBG pO2 51 mmHg
[2023-09-20 05:59] LABS: Venous Blood Gas Refer to POC result
[2023-09-20 06:04] LABS: Glucose, Whole Blood 218 mg/dL (60-115)
[2023-09-20 06:06] LABS: Hematocrit 25.3 % (42.0-52.0); Mean Corpuscular HGB Conc 31.6 g/dl (31.0-36.0); Mean Corpuscular Hemoglobin 29.1 pg (27.0-33.0); Mean Platelet Volume 9.6 fL (9.4-12.4); NRBC Pct Auto 0.8 /100WBC (0.0-0.2); Platelet Count 266 X10*3/uL (160-400); Red Blood Count 2.75 X10*6/uL (4.60-5.80); Red Cell Distribution Width 15.4 % (11.0-16.0); White Blood Count 18.1 X10*3/uL (4.8-10.8)
[2023-09-20 06:28] LABS: Albumin Level 2.9 g/dL (3.5-5.0); Anion Gap 15 (12-20); Blood Urea Nitrogen 13 mg/dL (9-16); Calcium 8.1 mg/dL (8.4-10.2); Carbon Dioxide 32 mmol/L (22-29); Chloride 111 mmol/L (96-108); Creatinine Clr Calc Pharmacy 168.1; Estimated Glomerular Filt Rate > 60; Glucose Random 218 mg/dL (60-115); Magnesium 2.1 mg/dL (1.6-2.6); Phosphorus 3.1 mg/dL (2.7-4.5); Potassium 3.8 mmol/L (3.3-5.1); Sodium 154 mmol/L (135-145)
[2023-09-20 06:33] LABS: Band Neutrophils Percent 10 % (3-5); Eosinophils Absolute Manual 0.2 X10*3/uL (0.0-0.4); Eosinophils Percent Manual 1 % (0-4); Lymphocytes Absolute Manual 2.2 X10*3/uL (1.2-4.9); Lymphocytes Percent Manual 12 % (20-40); Metamyelocytes Absolute 0.2 X10*3/uL; Metamyelocytes Percent 1 %; Monocytes Absolute Manual 0.4 X10*3/uL (0.1-1.2); Monocytes Percent Manual 2 % (2-11); Neutrophils Absolute Manual 15.2 X10*3/uL (2.0-8.3); Neutrophils Percent Manual 74 % (45-73)
[2023-09-20 06:35] LABS: Basophilic Stippling 1+ (0-2) /OIF; Macrocytosis 1+ (5-14) /OIF; Ovalocytes 1+ (5-14) /OIF; RBC Morphology NOTED; Stomatocytes 1+ (5-14) /OIF; Target Cells 1+ (5-14) /OIF; Tear Drop Cells 1+ (0-2) /OIF
[2023-09-20 06:36] LABS: Platelet Estimate NORMAL (NORMAL); Platelet Morphology Comment NORMAL; Polychromasia 1+ (0-2) /OIF
[2023-09-20] MEDS: Albumin Human 25 % 100 ML IV ×3 (07:50→20:04)
[2023-09-20] MEDS: Chlorhexidine Gluc Oral Rinse 15 ML MOUTHWASH BUCCAL (07:56)
[2023-09-20] MEDS: 0.9 % Sodium Chloride Flush 3 ML SYRINGE IVFLUSH ×3 (07:56→23:01)
[2023-09-20] MEDS: propofoL 1,000 MG/100 ML VIAL 36.86 MG IVCONT (08:04)
--- NOTE | 2023-09-20 08:32 | PM.CCPN ---
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 No events overnight. Critical Care Time (minutes): 60 Physical Exam Vital Signs: Vital Signs: Last Vital Signs Temp 100.4 F 09/20/23 08:00 Pulse 91 09/20/23 08:26 Resp 20 09/20/23 08:00 BP 104/36 L 09/20/23 08:26 Pulse Ox 94 09/20/23 08:00 O2 Del Method Mechanical Ventil ation 09/20/23 08:00 O2 Flow Rate 35 09/20/23 04:00 FiO2 30 09/20/23 08:00 BMI result Body Mass Index 51.6 Const: General: no acute distress and other (Sedated on the vent) Nutritional Appearance: obese Eyes: Sclerae: sclerae normal EOM: EOMs intact bilaterally Neck: Neck: Yes no lymphadenopathy, Yes trachea midline and Yes supple Resp: Auscultation: crackles (Mild bilateral) Cardio: Rate: regular rate Rhythm: regular rhythm Heart sounds: no gallops, no murmurs and no rubs GI: Palpation (GI): Soft to palpation and Other GI palpation findings present ( Nontender) Auscultation: normal bowel sounds Extrem: General: Yes no pedal edema, No clubbing and No cyanosis Objective Data Labs 09/20/23 05:40 09/20/23 05:40 Labs: Laboratory Results - last 24 hr 09/17/23 09/19/23 09/19/23 20:25 11:23 18:05 WBC RBC Hgb Hct MCV MCH MCHC RDW Plt Count MPV Immature Gran % (Auto) Neut % (Auto) Lymph % (Auto) [place] % (Auto) Eos % (Auto) Baso % (Auto) Lymph # (Auto) [place] # (Auto) Eos # (Auto) Baso # (Auto) Abs Immat Gran (auto) Absolute Neuts (auto) Absolute Nucleated RBC Nucleated RBC % (auto) Neutrophils % (Manual) Band Neutrophils % Lymphocytes % (Manual) Monocytes % (Manual) Eosinophils % (Manual) Basophils % (Manual) Metamyelocytes % Abs Neuts (Manual) Lymphocytes # (Manual) Monocytes # (Manual) Eosinophils # (Manual) Basophils # (Manual) Metamyelocytes # Nucleated RBCs Smudge Cells Platelet Estimate Plt Morphology Comment RBC Morphology Polychromasia Basophilic Stippling Macrocytosis Spherocytes Target Cells Tear Drop Cells Ovalocytes Stomatocytes VBG pH VBG pCO2 VBG pO2 VBG HCO3 VBG O2 Saturation VBG Base Excess Sodium Potassium Chloride Carbon Dioxide Anion Gap BUN Creatinine Estim Creat Clear Calc Estimated GFR POC Glucose 200 H 206 H Random Glucose Calcium Phosphorus Magnesium Albumin Random Vancomycin Crossmatch See Detail 09/19/23 09/19/23 09/19/23 19:12 21:03 21:22 WBC 21.6 H RBC 2.71 L Hgb 8.1 L Hct 24.4 L MCV 90.0 MCH 29.9 MCHC 33.2 RDW 15.5 Plt Count 235 MPV 9.3 L Immature Gran % (Auto) Cancelled Neut % (Auto) Cancelled Lymph % (Auto) Cancelled [place] % (Auto) Cancelled Eos % (Auto) Cancelled Baso % (Auto) Cancelled Lymph # (Auto) Cancelled [place] # (Auto) Cancelled Eos # (Auto) Cancelled Baso # (Auto) Cancelled Abs Immat Gran (auto) Cancelled Absolute Neuts (auto) Cancelled Absolute Nucleated RBC 0.130 H Nucleated RBC % (auto) 0.6 H Neutrophils % (Manual) 72 Band Neutrophils % 14 H Lymphocytes % (Manual) 5 L Monocytes % (Manual) 5 Eosinophils % (Manual) 2 Basophils % (Manual) 1 Metamyelocytes % 1 Abs Neuts (Manual) 18.6 H Lymphocytes # (Manual) 1.1 L Monocytes # (Manual) 1.1 Eosinophils # (Manual) 0.4 Basophils # (Manual) 0.2 Metamyelocytes # 0.2 Nucleated RBCs 1 H Smudge Cells PRESENT Platelet Estimate NORMAL Plt Morphology Comment NORMAL RBC Morphology NOTED Polychromasia Basophilic Stippling Macrocytosis 1+ (5-14) Spherocytes 1+ (0-2) Target Cells Tear Drop Cells Ovalocytes Stomatocytes 1+ (5-14) VBG pH VBG pCO2 VBG pO2 VBG HCO3 VBG O2 Saturation VBG Base Excess Sodium 153 H Potassium 2.9 L* Chloride 111 H Carbon Dioxide 32 H Anion Gap 13 BUN 13 Creatinine 0.73 Estim Creat Clear Calc 171.2 Estimated GFR > 60 POC Glucose 193 H Random Glucose 198 H Calcium 8.0 L Phosphorus 2.9 Magnesium 2.1 Albumin Random Vancomycin 14.7 L Crossmatch 09/20/23 09/20/23 09/20/23 00:48 05:40 05:42 WBC 18.1 H RBC 2.75 L Hgb 8.0 L Hct 25.3 L MCV 92.0 MCH 29.1 MCHC 31.6 RDW 15.4 Plt Count 266 MPV 9.6 Immature Gran % (Auto) Cancelled Neut % (Auto) Cancelled Lymph % (Auto) Cancelled [place] % (Auto) Cancelled Eos % (Auto) Cancelled Baso % (Auto) Cancelled Lymph # (Auto) Cancelled [place] # (Auto) Cancelled Eos # (Auto) Cancelled Baso # (Auto) Cancelled Abs Immat Gran (auto) Cancelled Absolute Neuts (auto) Cancelled Absolute Nucleated RBC 0.140 H Nucleated RBC % (auto) 0.8 H Neutrophils % (Manual) 74 H Band Neutrophils % 10 H Lymphocytes % (Manual) 12 L Monocytes % (Manual) 2 Eosinophils % (Manual) 1 Basophils % (Manual) Metamyelocytes % 1 Abs Neuts (Manual) 15.2 H Lymphocytes # (Manual) 2.2 Monocytes # (Manual) 0.4 Eosinophils # (Manual) 0.2 Basophils # (Manual) Metamyelocytes # 0.2 Nucleated RBCs Smudge Cells Platelet Estimate NORMAL Plt Morphology Comment NORMAL RBC Morphology NOTED Polychromasia 1+ (0-2) Basophilic Stippling 1+ (0-2) Macrocytosis 1+ (5-14) Spherocytes Target Cells 1+ (5-14) Tear Drop Cells 1+ (0-2) Ovalocytes 1+ (5-14) Stomatocytes 1+ (5-14) VBG pH 7.53 H VBG pCO2 45 VBG pO2 51 VBG HCO3 38 H VBG O2 Saturation 81.0 VBG Base Excess 14.0 Sodium 154 H Potassium 3.8 D Chloride 111 H Carbon Dioxide 32 H Anion Gap 15 BUN 13 Creatinine 0.74 Estim Creat Clear Calc 168.1 Estimated GFR > 60 POC Glucose 195 H Random Glucose 218 H Calcium 8.1 L Phosphorus 3.1 Magnesium 2.1 Albumin 2.9 L Random Vancomycin Crossmatch 09/20/23 06:01 WBC RBC Hgb Hct MCV MCH MCHC RDW Plt Count MPV Immature Gran % (Auto) Neut % (Auto) Lymph % (Auto) [place] % (Auto) Eos % (Auto) Baso % (Auto) Lymph # (Auto) [place] # (Auto) Eos # (Auto) Baso # (Auto) Abs Immat Gran (auto) Absolute Neuts (auto) Absolute Nucleated RBC Nucleated RBC % (auto) Neutrophils % (Manual) Band Neutrophils % Lymphocytes % (Manual) Monocytes % (Manual) Eosinophils % (Manual) Basophils % (Manual) Metamyelocytes % Abs Neuts (Manual) Lymphocytes # (Manual) Monocytes # (Manual) Eosinophils # (Manual) Basophils # (Manual) Metamyelocytes # Nucleated RBCs Smudge Cells Platelet Estimate Plt Morphology Comment RBC Morphology Polychromasia Basophilic Stippling Macrocytosis Spherocytes Target Cells Tear Drop Cells Ovalocytes Stomatocytes VBG pH VBG pCO2 VBG pO2 VBG HCO3 VBG O2 Saturation VBG Base Excess Sodium Potassium Chloride Carbon Dioxide Anion Gap BUN Creatinine Estim Creat Clear Calc Estimated GFR POC Glucose 218 H Random Glucose Calcium Phosphorus Magnesium Albumin Random Vancomycin Crossmatch Microbiology Microbiology Results: Microbiology 09/14/23 10:56 Blood - Venous Blood Culture - Final No growth after 5 days. 09/14/23 10:40 Blood - Venous Blood Culture - Final No growth after 5 days. Progress Note: A&P Assessment and plan (1) Type 2 diabetes mellitus: Status: Acute (2) Necrotizing soft tissue infection: Status: Acute (3) Morbid obesity: Status: Acute Plan Assessment: 48-year-old gentleman with underlying morbid obesity and diabetes mellitus admitted with Cuate's gangrene requiring multiple debridements for which he remains intubated. Plan: Neuro: No acute issues. Cardiac: No acute issues. Pulmonary: Remains intubated for multiple consecutive debridements in the operating room. At this time no plans for further debridement. Will proceed with pressor support trial. Renal: No acute issues. Endo: No acute issues. Underlying diabetes mellitus. GI: No acute issues. ID: Cuate's gangrene with no initial wound culture, blood cultures negative to date. Continue Zosyn/vancomycin. General surgery service care appreciated. Heme/Onc: Subacute blood-loss anemia secondary to oozing at debridement site. Continue transfusion support with hemoglobin threshold of 7 grams/deciliter. Psych: No acute issues. Miscellaneous: No acute issues. Prophylaxis: Pneumatic compression, ppi Diet: Tube feeds Critical care time spent: 60 minutes Quality Stroke Does the patient have a stroke diagnosis?: No VTE Prior VTE?: No VTE Risk Level:: Medical - moderate - high VTE Device Contraindication: N/A - Device Ordered VTE Drug Contraindication: Treatment Not Tolerated
--- NOTE | 2023-09-20 09:58 | MHC.CLN ---
F/U PT IS INTUBATED AND SEDATED DISCUSSED AT ROUNDS WITH MD NOTED ELEVATED SERUM NA-FWF INCREASED TO 300ML Q 4 HRS PER PT RECEIVING PROMOTE AT MAX GOAL RATE 35ML/HR WITH 30ML PROSOURCE BID AND 300ML FREE WATER FLUSHES Q 4 HRS TO PROVIDE 960KCALS (1447KCALS WITH SEDATION; 22KCALS/KG BASED ON IBW), 82.5G TOTAL PROTEIN (1.26G/KG), 2505ML TOTAL WATER FROM FORMULA AND FLUSHES (38.5ML/KG BASED ON IBW) CONTINUE TO MONITOR TOLERANCE AND LYTES
[2023-09-20] MEDS: Sodium Hypochlorite 0.125% 473 ML SOLUTION 1 APPL TOPICAL (10:56)
[2023-09-20] MEDS: Insulin Glargine,Hum.rec.anlog 100 UNIT/ML 10 ML VIAL 15 UNIT SUBCUT (10:56)
[2023-09-20 11:42] LABS: Glucose, Whole Blood 199 mg/dL (60-115)
[2023-09-20] MEDS: vancomycin HCL 1,250 MG in 0.9 % Sodium Chloride 250 ML 166.67 MG IV ×2 (12:07→23:00)
--- NOTE | 2023-09-20 12:21 | PM.PNGS ---
Subjective Subjective Date of Service: 09/20/23 Interval history: being weaned off the vent has been hemodynamically stable Physical Exam Vital Signs: Vital Signs: Last Vital Signs Temp 100.6 F H 09/20/23 11:00 Pulse 106 H 09/20/23 12:19 Resp 18 09/20/23 12:00 BP 129/65 09/20/23 12:19 Pulse Ox 95 09/20/23 12:00 O2 Del Method Nasal Cannula 09/20/23 12:00 O2 Flow Rate 4 09/20/23 12:00 FiO2 30 09/20/23 11:33 BMI result Body Mass Index 51.6 Const: Other: sedated, on vent support Resp: Other: on vent Cardio: Rate: tachycardic Skin: Other: large open wound on proximal posterior thigh and buttock, with some draining sinuses on margins on skin at the groin open wound now with good healthy looking tissue, 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 Norepinephrine Bitartrate (Levophed) 8 mg in 250 mls @ 0 mls/hr IV .Q0M VIKTORIYA; Protocol Last Titration: 09/20/23 12:19 Dose: 0.05 mcg/kg/min, 13.74 mls/hr Documented By: STACEY Dextrose (D10) 250 mls @ 750 mls/hr IV Q15M PRN PRN Reason: per Hypoglycemia Standing Ord. Midazolam HCl (Versed) 50 mg in 50 mls @ 2 mls/hr IVCONT .Q24H PENDING SALE TO [facility] Last Infusion: 09/20/23 10:41 Dose: 0 mg/hr, 0 mls/hr Documented By: EMILY Piperacillin Sod/Tazobactam (Sod 4.5 gm/ Sodium Chloride) 100 mls @ 200 mls/hr IV Q6H PENDING SALE TO [facility] Last Infusion: 09/20/23 08:29 Dose: Infused Documented By: STACEY Vancomycin HCl 1,250 mg/ (Sodium Chloride) 250 mls @ 166.667 mls/hr IV Q12H PENDING SALE TO [facility] Last Admin: 09/20/23 12:07 Dose: 166.67 mls/hr Documented By: STACEY Propofol (Diprivan) 1,000 mg in 100 mls @ 0 mls/hr IVCONT .Q0M PENDING SALE TO [facility]; Protocol Last Titration: 09/20/23 10:38 Dose: 0 mcg/kg/min, 0 mls/hr Documented By: STACEY Fentanyl (Sublimaze/Ns) 1,000 mcg in 100 mls @ 0 mls/hr IVCONT .Q0M PENDING SALE TO [facility]; Protocol Last Titration: 09/20/23 11:57 Dose: 25 mcg/hr, 2.5 mls/hr Documented By: STACEY Albumin Human (Kedbumin 25 %) 100 mls @ 100 mls/hr IV Q6H PENDING SALE TO [facility] Stop: 09/21/23 02:59 Last Infusion: 09/20/23 08:56 Dose: Infused Documented By: EMILY Insulin Glargine (Insulin Glargine,Hum.Rec.Anlog 100 Unit/Ml 10 Ml Vial) 20 unit SUBCUT BEDTIME PENDING SALE TO [facility] Last Admin: 09/19/23 21:23 Dose: 20 unit Documented By: GINA Insulin Glargine (Insulin Glargine,Hum.Rec.Anlog 100 Unit/Ml 10 Ml Vial) 15 unit SUBCUT DAILY PENDING SALE TO [facility] Last Admin: 09/20/23 10:56 Dose: 15 unit Documented By: STACEY Insulin Human Lispro (Insulin Lispro 100 Unit/Ml 3 Ml Vial) 0 unit SUBCUT Q6H PENDING SALE TO [facility]; Protocol Last Admin: 09/20/23 12:09 Dose: 2 unit Documented By: STACEY Lactulose (Lactulose 20 Gm/30 Ml Solution) 30 gm PO BID PENDING SALE TO [facility] Last Admin: 09/19/23 20:21 Dose: 30 gm Documented By: GINA Naloxone HCl (Naloxone Hcl 0.4 Mg/Ml Vial) 0.2 mg IVPUSH Q2M PRN PRN Reason: Excessive sedation or RR < 8 Pharmacy Consult (Consult Rx Vancomycin Dosing) 1 each MISCELLANE DAILY PRN PRN Reason: Consult order Sodium Chloride (0.9 % Sodium Chloride Flush 3 Ml Syringe) 3 ml IVFLUSH QSHIFT PENDING SALE TO [facility] Last Admin: 09/20/23 07:56 Dose: 3 ml Documented By: STACEY Sodium Hypochlorite (Sodium Hypochlorite 0.125% 473 Ml Solution) 1 appl TOPICAL DAILY PENDING SALE TO [facility] Last Admin: 09/20/23 10:56 Dose: 1 appl Documented By: STACEY Labs 09/20/23 05:40 09/20/23 05:40 Labs: Laboratory Results - last 24 hr 09/17/23 09/19/23 09/19/23 20:25 18:05 19:12 MCV 90.0 MCH 29.9 MCHC 33.2 RDW 15.5 Plt Count 235 MPV 9.3 L Immature Gran % (Auto) Cancelled Neut % (Auto) Cancelled Lymph % (Auto) Cancelled [place] % (Auto) Cancelled Eos % (Auto) Cancelled Baso % (Auto) Cancelled Lymph # (Auto) Cancelled [place] # (Auto) Cancelled Eos # (Auto) Cancelled Baso # (Auto) Cancelled Abs Immat Gran (auto) Cancelled Absolute Neuts (auto) Cancelled Absolute Nucleated RBC 0.130 H Nucleated RBC % (auto) 0.6 H Neutrophils % (Manual) 72 Band Neutrophils % 14 H Lymphocytes % (Manual) 5 L Monocytes % (Manual) 5 Eosinophils % (Manual) 2 Basophils % (Manual) 1 Metamyelocytes % 1 Abs Neuts (Manual) 18.6 H Lymphocytes # (Manual) 1.1 L Monocytes # (Manual) 1.1 Eosinophils # (Manual) 0.4 Basophils # (Manual) 0.2 Metamyelocytes # 0.2 Nucleated RBCs 1 H Smudge Cells PRESENT Platelet Estimate NORMAL Plt Morphology Comment NORMAL RBC Morphology NOTED Polychromasia Basophilic Stippling Macrocytosis 1+ (5-14) Spherocytes 1+ (0-2) Target Cells Tear Drop Cells Ovalocytes Stomatocytes 1+ (5-14) VBG pH VBG pCO2 VBG pO2 VBG HCO3 VBG O2 Saturation VBG Base Excess Anion Gap 13 Estim Creat Clear Calc 171.2 Estimated GFR > 60 POC Glucose 206 H Random Glucose 198 H Calcium 8.0 L Phosphorus 2.9 Magnesium 2.1 Albumin Random Vancomycin Crossmatch See Detail 09/19/23 09/19/23 09/20/23 21:03 21:22 00:48 MCV MCH MCHC RDW Plt Count MPV Immature Gran % (Auto) Neut % (Auto) Lymph % (Auto) [place] % (Auto) Eos % (Auto) Baso % (Auto) Lymph # (Auto) [place] # (Auto) Eos # (Auto) Baso # (Auto) Abs Immat Gran (auto) Absolute Neuts (auto) Absolute Nucleated RBC Nucleated RBC % (auto) Neutrophils % (Manual) Band Neutrophils % Lymphocytes % (Manual) Monocytes % (Manual) Eosinophils % (Manual) Basophils % (Manual) Metamyelocytes % Abs Neuts (Manual) Lymphocytes # (Manual) Monocytes # (Manual) Eosinophils # (Manual) Basophils # (Manual) Metamyelocytes # Nucleated RBCs Smudge Cells Platelet Estimate Plt Morphology Comment RBC Morphology Polychromasia Basophilic Stippling Macrocytosis Spherocytes Target Cells Tear Drop Cells Ovalocytes Stomatocytes VBG pH VBG pCO2 VBG pO2 VBG HCO3 VBG O2 Saturation VBG Base Excess Anion Gap Estim Creat Clear Calc Estimated GFR POC Glucose 193 H 195 H Random Glucose Calcium Phosphorus Magnesium Albumin Random Vancomycin 14.7 L Crossmatch 09/20/23 09/20/23 09/20/23 05:40 05:42 06:01 MCV 92.0 MCH 29.1 MCHC 31.6 RDW 15.4 Plt Count 266 MPV 9.6 Immature Gran % (Auto) Cancelled Neut % (Auto) Cancelled Lymph % (Auto) Cancelled [place] % (Auto) Cancelled Eos % (Auto) Cancelled Baso % (Auto) Cancelled Lymph # (Auto) Cancelled [place] # (Auto) Cancelled Eos # (Auto) Cancelled Baso # (Auto) Cancelled Abs Immat Gran (auto) Cancelled Absolute Neuts (auto) Cancelled Absolute Nucleated RBC 0.140 H Nucleated RBC % (auto) 0.8 H Neutrophils % (Manual) 74 H Band Neutrophils % 10 H Lymphocytes % (Manual) 12 L Monocytes % (Manual) 2 Eosinophils % (Manual) 1 Basophils % (Manual) Metamyelocytes % 1 Abs Neuts (Manual) 15.2 H Lymphocytes # (Manual) 2.2 Monocytes # (Manual) 0.4 Eosinophils # (Manual) 0.2 Basophils # (Manual) Metamyelocytes # 0.2 Nucleated RBCs Smudge Cells Platelet Estimate NORMAL Plt Morphology Comment NORMAL RBC Morphology NOTED Polychromasia 1+ (0-2) Basophilic Stippling 1+ (0-2) Macrocytosis 1+ (5-14) Spherocytes Target Cells 1+ (5-14) Tear Drop Cells 1+ (0-2) Ovalocytes 1+ (5-14) Stomatocytes 1+ (5-14) VBG pH 7.53 H VBG pCO2 45 VBG pO2 51 VBG HCO3 38 H VBG O2 Saturation 81.0 VBG Base Excess 14.0 Anion Gap 15 Estim Creat Clear Calc 168.1 Estimated GFR > 60 POC Glucose 218 H Random Glucose 218 H Calcium 8.1 L Phosphorus 3.1 Magnesium 2.1 Albumin 2.9 L Random Vancomycin Crossmatch 09/20/23 11:38 MCV MCH MCHC RDW Plt Count MPV Immature Gran % (Auto) Neut % (Auto) Lymph % (Auto) [place] % (Auto) Eos % (Auto) Baso % (Auto) Lymph # (Auto) [place] # (Auto) Eos # (Auto) Baso # (Auto) Abs Immat Gran (auto) Absolute Neuts (auto) Absolute Nucleated RBC Nucleated RBC % (auto) Neutrophils % (Manual) Band Neutrophils % Lymphocytes % (Manual) Monocytes % (Manual) Eosinophils % (Manual) Basophils % (Manual) Metamyelocytes % Abs Neuts (Manual) Lymphocytes # (Manual) Monocytes # (Manual) Eosinophils # (Manual) Basophils # (Manual) Metamyelocytes # Nucleated RBCs Smudge Cells Platelet Estimate Plt Morphology Comment RBC Morphology Polychromasia Basophilic Stippling Macrocytosis Spherocytes Target Cells Tear Drop Cells Ovalocytes Stomatocytes VBG pH VBG pCO2 VBG pO2 VBG HCO3 VBG O2 Saturation VBG Base Excess Anion Gap Estim Creat Clear Calc Estimated GFR POC Glucose 199 H Random Glucose Calcium Phosphorus Magnesium Albumin Random Vancomycin Crossmatch Microbiology Microbiology Results: Microbiology 09/14/23 10:56 Blood Culture - Final Blood - Venous No growth after 5 days. 09/14/23 10:40 Blood Culture - Final Blood - Venous No growth after 5 days. Procedures Date of Service Date of Service: 09/20/23 Arterial Line Size (Gauge): 20 Progress Note: A&P Assessment and plan (1) Necrotizing soft tissue infection: Status: Acute Assessment and Plan: s/p multiple debridement in the OR wound now with good healthy looking tissue Dakins' dressings reapplied continue daily dressing changes pain mgt especially after extubation will need good premedication for pain before dressing changes once off ventilator dw family Time Spent With Patient Time: Total time managing care of this patient today ____ minutes. Quality Stroke Does the patient have a stroke diagnosis?: No VTE Prior VTE?: No VTE Risk Level:: Medical - moderate - high VTE Device Contraindication: N/A - Device Ordered VTE Drug Contraindication: Treatment Not Tolerated
--- NOTE | 2023-09-20 14:41 | HO.WOUND ---
Wound Consult Attempted Attempted wound consult - primary nurse off unit notified by ICU team Buttock dressing was performed this morning by Dr. Matthew and staff - not due for dressing change or in need of assessment as Dr. Matthew viewed. Will attempt to follow up early next week.
[2023-09-20] MEDS: fentaNYL citrate/PF 100 MCG/2 ML VIAL 50 MCG IVPUSH ×3 (16:01→23:11)
[2023-09-20 17:42] LABS: Glucose, Whole Blood 167 mg/dL (60-115)
[2023-09-20 20:21] LABS: Anion Gap 17 (12-20); Blood Urea Nitrogen 15 mg/dL (9-16); Calcium 8.4 mg/dL (8.4-10.2); Carbon Dioxide 28 mmol/L (22-29); Chloride 112 mmol/L (96-108); Creatinine Clr Calc Pharmacy 151.7; Estimated Glomerular Filt Rate > 60; Glucose Random 170 mg/dL (60-115); Magnesium 2.1 mg/dL (1.6-2.6); Phosphorus 2.1 mg/dL (2.7-4.5); Potassium 2.9 mmol/L (3.3-5.1); Sodium 154 mmol/L (135-145)
[2023-09-20] MEDS: Potassium Chloride/H20 40 MEQ/100 ML PIGGYBACK 50 MEQ IV (20:46)
[2023-09-20] MEDS: Furosemide 20 MG/2 ML VIAL IVPUSH (20:50)
[2023-09-20 20:54] LABS: Glucose, Whole Blood 160 mg/dL (60-115)
[2023-09-20] MEDS: Potassium Phosphate/NS 15 MMOL/250 ML PLAST..BAG 62.5 MMOL IV (22:54)
[2023-09-21] VITALS (31 sets, daily range): BP systolic 115–143; BP diastolic 35–64; PULSE 53–126; RESP 13–91; TEMP 37–39.4; O2SAT 88–96; BMI 50.2
[2023-09-21 00:09] LABS: Glucose, Whole Blood 175 mg/dL (60-115)
[2023-09-21] MEDS: Albumin Human 25 % 100 ML IV (01:37)
[2023-09-21] MEDS: Piperacillin Sodium/Tazobactam 4.5 GM in 0.9 % Sodium Chloride 100 ML IV ×4 (01:38→20:27)
[2023-09-21] MEDS: fentaNYL citrate/PF 100 MCG/2 ML VIAL 50 MCG IVPUSH ×2 (02:23→10:15)
[2023-09-21] MEDS: Acetaminophen 1,000 MG/100 ML PIGGYBACK 400 MG IV (02:31)
[2023-09-21] MEDS: Potassium Phosphate/NS 15 MMOL/250 ML PLAST..BAG 62.5 MMOL IV (03:07)
--- NOTE | 2023-09-21 03:19 | HO.SKINPHOTO ---
Location:Left medial buttock Category: MASD
[2023-09-21 04:56] LABS: VBG Base Excess 8.9 mmol/L; VBG HCO3 30 mmol/L (22-26); VBG pCO2 31 mmHg; VBG pH 7.59 (7.32-7.43); VBG pO2 43 mmHg
[2023-09-21 04:58] LABS: Venous Blood Gas Refer to POC result
[2023-09-21 05:09] LABS: Hematocrit 21.4 % (42.0-52.0); Mean Corpuscular HGB Conc 31.3 g/dl (31.0-36.0); Mean Corpuscular Hemoglobin 29.3 pg (27.0-33.0); Mean Corpuscular Volume 93.4 fL (80.0-98.0); Mean Platelet Volume 9.8 fL (9.4-12.4); NRBC Pct Auto 0.6 /100WBC (0.0-0.2); Platelet Count 363 X10*3/uL (160-400); Red Blood Count 2.29 X10*6/uL (4.60-5.80)
[2023-09-21 05:25] LABS: Hemoglobin 6.7 g/dl (14.0-18.0)
[2023-09-21 05:27] LABS: Albumin Level 3.4 g/dL (3.5-5.0); Anion Gap 25 (12-20); Blood Urea Nitrogen 16 mg/dL (9-16); Calcium 8.4 mg/dL (8.4-10.2); Carbon Dioxide 23 mmol/L (22-29); Chloride 114 mmol/L (96-108); Creatinine Clr Calc Pharmacy 136.7; Estimated Glomerular Filt Rate > 60; Glucose Random 186 mg/dL (60-115); Magnesium 2.1 mg/dL (1.6-2.6); Phosphorus 3.7 mg/dL (2.7-4.5); Potassium 2.9 mmol/L (3.3-5.1); Sodium 159 mmol/L (135-145)
[2023-09-21 05:28] LABS: Band Neutrophils Percent 8 % (3-5); Basophils Abs Manual 0.2 X10*3/uL (0.0-0.2); Basophils Percent Manual 1 % (0-2); Lymphocytes Absolute Manual 0.9 X10*3/uL (1.2-4.9); Lymphocytes Percent Manual 4 % (20-40); Metamyelocytes Absolute 0.2 X10*3/uL; Metamyelocytes Percent 1 %; Monocytes Absolute Manual 0.7 X10*3/uL (0.1-1.2); Monocytes Percent Manual 3 % (2-11); Neutrophils Percent Manual 83 % (45-73)
[2023-09-21 05:30] LABS: Hypochromasia 1+ (5-14) /OIF; Macrocytosis 1+ (5-14) /OIF; Ovalocytes 1+ (5-14) /OIF; Platelet Estimate NORMAL (NORMAL); Platelet Morphology Comment NOTED; RBC Morphology NOTED; Spherocytes 1+ (0-2) /OIF; Stomatocytes 1+ (5-14) /OIF; Toxic Granulation PRESENT
[2023-09-21 05:32] LABS: Large Platelet PRESENT
[2023-09-21 05:33] LABS: Polychromasia 1+ (0-2) /OIF
[2023-09-21] MEDS: Dextrose 5 % 1,000 ML 75 ML IVCONT (05:39)
[2023-09-21] MEDS: Potassium Chloride/H20 40 MEQ/100 ML PIGGYBACK 50 MEQ IV ×3 (05:45→09:56)
[2023-09-21] MEDS: Insulin Lispro 100 UNIT/ML 3 ML VIAL SUBCUT ×5 (05:46→21:34)
[2023-09-21] MEDS: 0.9 % Sodium Chloride Flush 3 ML SYRINGE IVFLUSH ×2 (08:24→15:58)
[2023-09-21] MEDS: Insulin Glargine,Hum.rec.anlog 100 UNIT/ML 10 ML VIAL 15 UNIT SUBCUT (08:29)
--- NOTE | 2023-09-21 09:24 | MHC.CM.PN ---
EMR REVIEWED AND PER MD ROUNDS, PT IS NOW OFF VENTILATORY SUPPORT. PT REMAINS LETHARGIC BUT RESPONSIVE WITH YES/NO QUESTIONS. CM WILL NEED TO DO A FORMAL HCP WITH PT WHEN MORE AWAKE. [facility] UPDATED VIA [employer]. CM WILL CONTINUE TO FOLLOW FOR ANY CHANGE TO DC PLAN/NEEDS.
--- NOTE | 2023-09-21 09:32 | MHC.CLN ---
F/U PT IS EXTUBATED DISCUSSED AT ROUNDS WITH MD WILL CHANGE DIET TO NPO WHEN DIET TO ADVANCE RECOMMEND 1800DM RECOMMEND ADDING HIGH PROTEIN NUTRITION SUPPLEMENT TO PROMOTE WOUND HEALING FOLLOWING WITH TEAM
--- NOTE | 2023-09-21 09:37 | P.PNCC_ITS ---
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 Extubated 09/20/2023. Critical Care Time (minutes): 0 Physical Exam 2 Vital Signs: Vital Signs: Last Vital Signs Temp 102.8 F H 09/21/23 09:00 Pulse 57 09/21/23 09:00 Resp 15 09/21/23 09:00 BP 137/46 L 09/21/23 09:00 Pulse Ox 91 L 09/21/23 09:00 O2 Del Method Nasal Cannula 09/21/23 09:00 O2 Flow Rate 2 09/21/23 09:00 FiO2 30 09/20/23 11:33 BMI result Body Mass Index 50.2 Const: General: no acute distress and lethargic (Arousable and answers appropriate) Nutritional Appearance: obese Orientation/consciousness: l ethargic (Arousable and answers appropriate) Eyes: Sclerae: sclerae normal EOM: EOMs intact bilaterally Neck: Neck: Yes no lymphadenopathy, Yes trachea midline and Yes supple Resp: Effort & Inspection: normal respiratory effort and no respiratory distress Auscultation: clear to auscultation bilaterally Cardio: Rate: tachycardic Rhythm: regular rhythm Heart sounds: no gallops, no murmurs and no rubs GI: Palpation (GI): Soft to palpation and Other GI palpation findings present ( Nontender) Auscultation: normal bowel sounds Extrem: General: Yes no pedal edema, No clubbing and No cyanosis Objective Data Labs 09/21/23 04:47 09/21/23 04:47 Labs: Laboratory Results - last 24 hr 09/20/23 09/20/23 09/20/23 11:38 17:38 19:43 WBC RBC Hgb Hct MCV MCH MCHC RDW Plt Count MPV Immature Gran % (Auto) Neut % (Auto) Lymph % (Auto) [place] % (Auto) Eos % (Auto) Baso % (Auto) Lymph # (Auto) [place] # (Auto) Eos # (Auto) Baso # (Auto) Abs Immat Gran (auto) Absolute Neuts (auto) Absolute Nucleated RBC Nucleated RBC % (auto) Neutrophils % (Manual) Band Neutrophils % Lymphocytes % (Manual) Monocytes % (Manual) Basophils % (Manual) Metamyelocytes % Abs Neuts (Manual) Lymphocytes # (Manual) Monocytes # (Manual) Basophils # (Manual) Metamyelocytes # Toxic Granulation Platelet Estimate Large Platelets Plt Morphology Comment RBC Morphology Polychromasia Hypochromasia Macrocytosis Spherocytes Ovalocytes Stomatocytes Hold Purple Top VBG pH VBG pCO2 VBG pO2 VBG HCO3 VBG O2 Saturation VBG Base Excess Sodium 154 H Potassium 2.9 L* D Chloride 112 H Carbon Dioxide 28 Anion Gap 17 BUN 15 Creatinine 0.82 Estim Creat Clear Calc 151.7 Estimated GFR > 60 POC Glucose 199 H 167 H Random Glucose 170 H Calcium 8.4 Phosphorus 2.1 L Magnesium 2.1 Albumin Random Vancomycin Blood Type Antibody Screen Crossmatch 09/20/23 09/20/23 09/21/23 20:51 20:59 00:03 WBC RBC Hgb Hct MCV MCH MCHC RDW Plt Count MPV Immature Gran % (Auto) Neut % (Auto) Lymph % (Auto) [place] % (Auto) Eos % (Auto) Baso % (Auto) Lymph # (Auto) [place] # (Auto) Eos # (Auto) Baso # (Auto) Abs Immat Gran (auto) Absolute Neuts (auto) Absolute Nucleated RBC Nucleated RBC % (auto) Neutrophils % (Manual) Band Neutrophils % Lymphocytes % (Manual) Monocytes % (Manual) Basophils % (Manual) Metamyelocytes % Abs Neuts (Manual) Lymphocytes # (Manual) Monocytes # (Manual) Basophils # (Manual) Metamyelocytes # Toxic Granulation Platelet Estimate Large Platelets Plt Morphology Comment RBC Morphology Polychromasia Hypochromasia Macrocytosis Spherocytes Ovalocytes Stomatocytes Hold Purple Top VBG pH VBG pCO2 VBG pO2 VBG HCO3 VBG O2 Saturation VBG Base Excess Sodium Potassium Chloride Carbon Dioxide Anion Gap BUN Creatinine Estim Creat Clear Calc Estimated GFR POC Glucose 160 H 175 H Random Glucose Calcium Phosphorus Magnesium Albumin Random Vancomycin 15.0 Blood Type Antibody Screen Crossmatch 09/21/23 09/21/23 09/21/23 04:44 04:47 06:41 WBC 22.0 H RBC 2.29 L Hgb 6.7 L* Hct 21.4 L MCV 93.4 MCH 29.3 MCHC 31.3 RDW 15.0 Plt Count 363 D MPV 9.8 Immature Gran % (Auto) Cancelled Neut % (Auto) Cancelled Lymph % (Auto) Cancelled [place] % (Auto) Cancelled Eos % (Auto) Cancelled Baso % (Auto) Cancelled Lymph # (Auto) Cancelled [place] # (Auto) Cancelled Eos # (Auto) Cancelled Baso # (Auto) Cancelled Abs Immat Gran (auto) Cancelled Absolute Neuts (auto) Cancelled Absolute Nucleated RBC 0.130 H Nucleated RBC % (auto) 0.6 H Neutrophils % (Manual) 83 H Band Neutrophils % 8 H Lymphocytes % (Manual) 4 L Monocytes % (Manual) 3 Basophils % (Manual) 1 Metamyelocytes % 1 Abs Neuts (Manual) 20.0 H Lymphocytes # (Manual) 0.9 L Monocytes # (Manual) 0.7 Basophils # (Manual) 0.2 Metamyelocytes # 0.2 Toxic Granulation PRESENT Platelet Estimate NORMAL Large Platelets PRESENT Plt Morphology Comment NOTED RBC Morphology NOTED Polychromasia 1+ (0-2) Hypochromasia 1+ (5-14) Macrocytosis 1+ (5-14) Spherocytes 1+ (0-2) Ovalocytes 1+ (5-14) Stomatocytes 1+ (5-14) Hold Purple Top SEE NOTE VBG pH 7.59 H VBG pCO2 31 VBG pO2 43 VBG HCO3 30 H VBG O2 Saturation 73.0 VBG Base Excess 8.9 Sodium 159 H Potassium 2.9 L* Chloride 114 H Carbon Dioxide 23 Anion Gap 25 H BUN 16 Creatinine 0.91 Estim Creat Clear Calc 136.7 Estimated GFR > 60 POC Glucose Random Glucose 186 H Calcium 8.4 Phosphorus 3.7 Magnesium 2.1 Albumin 3.4 L Random Vancomycin Blood Type A Positive Antibody Screen NEGATIVE Crossmatch See Detail Microbiology Microbiology Results: Microbiology 09/14/23 10:56 Blood - Venous Blood Culture - Final No growth after 5 days. 09/14/23 10:40 Blood - Venous Blood Culture - Final No growth after 5 days. Progress Note: A&P Assessment and plan (1) Type 2 diabetes mellitus: Status: Acute (2) Necrotizing soft tissue infection: Status: Acute (3) Morbid obesity: Status: Acute Plan Assessment: 48-year-old gentleman with underlying morbid obesity and diabetes mellitus admitted with Cuate's gangrene requiring multiple debridements for which he remains intubated. Plan: Neuro: No acute issues. Cardiac: No acute issues. Pulmonary: Extubated 09/20/2023. Renal: No acute issues. Endo: No acute issues. Underlying diabetes mellitus. GI: No acute issues. ID: Cuate's gangrene with no initial wound culture, blood cultures negative to date. Continue Zosyn/vancomycin. General surgery service care appreciated. Heme/Onc: Subacute blood-loss anemia secondary to oozing at debridement site. Continue transfusion support with hemoglobin threshold of 7 grams/deciliter. Psych: No acute issues. Miscellaneous: No acute issues. Prophylaxis: Pneumatic compression Diet: Diabetic Quality Stroke Does the patient have a stroke diagnosis?: No VTE Prior VTE?: No VTE Risk Level:: Medical - moderate - high VTE Device Contraindication: N/A - Device Ordered VTE Drug Contraindication: Treatment Not Tolerated
[2023-09-21] MEDS: Sodium Hypochlorite 0.125% 473 ML SOLUTION 1 APPL TOPICAL (10:15)
[2023-09-21 11:36] LABS: Glucose, Whole Blood 226 mg/dL (60-115)
[2023-09-21] MEDS: vancomycin HCL 1,250 MG in 0.9 % Sodium Chloride 250 ML 166.67 MG IV ×2 (11:50→23:32)
--- NOTE | 2023-09-21 13:48 | P.PNGS_ITS ---
Subjective Subjective Date of Service: 09/21/23 Interval history: Was extubated, off ventilator No events reported Patient has been awake Physical Exam 2 Vital Signs: Vital Signs: Last Vital Signs Temp 99.8 F 09/21/23 11:51 Pulse 126 H 09/21/23 13:00 Resp 17 09/21/23 13:00 BP 123/35 L 09/21/23 13:00 Pulse Ox 90 L 09/21/23 13:00 O2 Del Method Nasal Cannula 09/21/23 13:00 O2 Flow Rate 2 09/21/23 13:00 FiO2 30 09/20/23 11:33 BMI result Body Mass Index 50.2 Const: Other: A little drowsy, morbidly obese General: comfortable and no acute distress Cardio: Rate: tachycardic Back/Spine/Pelvis: Other: Large open wound on the right buttock area and proximal thigh extending to the medial area near the groin clean, small patches of fibrinous debris but otherwise viable, known ongoing necrotizing process Objective Data Active Medications Acetaminophen (Acetaminophen Oral Liquid 650 Mg/20.3 Ml Solution) 650 mg PO Q4H PRN PRN Reason: Fever Last Admin: 09/18/23 04:57 Dose: 650 mg Documented By: REBECCA Fentanyl (Fentanyl Citrate/Pf 100 Mcg/2 Ml Vial) 50 mcg IVPUSH Q2H PRN; Protocol PRN Reason: Pain, Severe (Pain Scale 7-10) Last Admin: 09/21/23 10:15 Dose: 50 mcg Documented By: CECIL Glucose (Glucose Gel 15 Gm Gel..Gram.) 15 gm PO Q15M PRN; Protocol PRN Reason: per Hypoglycemia Standing Ord. Dextrose (D10) 250 mls @ 750 mls/hr IV Q15M PRN PRN Reason: per Hypoglycemia Standing Ord. Piperacillin Sod/Tazobactam (Sod 4.5 gm/ Sodium Chloride) 100 mls @ 200 mls/hr IV Q6H [facility] Last Infusion: 09/21/23 09:00 Dose: Infused Documented By: CECIL Vancomycin HCl 1,250 mg/ (Sodium Chloride) 250 mls @ 166.667 mls/hr IV Q12H [facility] Last Infusion: 09/21/23 13:28 Dose: Infused Documented By: CECIL Insulin Glargine (Insulin Glargine,Hum.Rec.Anlog 100 Unit/Ml 10 Ml Vial) 10 unit SUBCUT BID [facility] Insulin Human Lispro (Insulin Lispro 100 Unit/Ml 3 Ml Vial) 0 unit SUBCUT QIDACHS [facility]; Protocol Last Admin: 09/21/23 11:50 Dose: 4 unit Documented By: CECIL Naloxone HCl (Naloxone Hcl 0.4 Mg/Ml Vial) 0.2 mg IVPUSH Q2M PRN PRN Reason: Excessive sedation or RR < 8 Pharmacy Consult (Consult Rx Vancomycin Dosing) 1 each MISCELLANE DAILY PRN PRN Reason: Consult order Sodium Chloride (0.9 % Sodium Chloride Flush 3 Ml Syringe) 3 ml IVFLUSH QSHIFT [facility] Last Admin: 09/21/23 08:24 Dose: 3 ml Documented By: CECIL Sodium Hypochlorite (Sodium Hypochlorite 0.125% 473 Ml Solution) 1 appl TOPICAL DAILY [facility] Last Admin: 09/21/23 10:15 Dose: 1 appl Documented By: CECIL Labs 09/21/23 04:47 09/21/23 04:47 Labs: Laboratory Results - last 24 hr 09/20/23 09/20/23 09/20/23 17:38 19:43 20:51 MCV MCH MCHC RDW Plt Count MPV Immature Gran % (Auto) Neut % (Auto) Lymph % (Auto) [place] % (Auto) Eos % (Auto) Baso % (Auto) Lymph # (Auto) [place] # (Auto) Eos # (Auto) Baso # (Auto) Abs Immat Gran (auto) Absolute Neuts (auto) Absolute Nucleated RBC Nucleated RBC % (auto) Neutrophils % (Manual) Band Neutrophils % Lymphocytes % (Manual) Monocytes % (Manual) Basophils % (Manual) Metamyelocytes % Abs Neuts (Manual) Lymphocytes # (Manual) Monocytes # (Manual) Basophils # (Manual) Metamyelocytes # Toxic Granulation Platelet Estimate Large Platelets Plt Morphology Comment RBC Morphology Polychromasia Hypochromasia Macrocytosis Spherocytes Ovalocytes Stomatocytes Hold Purple Top VBG pH VBG pCO2 VBG pO2 VBG HCO3 VBG O2 Saturation VBG Base Excess Anion Gap 17 Estim Creat Clear Calc 151.7 Estimated GFR > 60 POC Glucose 167 H 160 H Random Glucose 170 H Calcium 8.4 Phosphorus 2.1 L Magnesium 2.1 Albumin Random Vancomycin Blood Type Antibody Screen Crossmatch 09/20/23 09/21/23 09/21/23 20:59 00:03 04:44 MCV MCH MCHC RDW Plt Count MPV Immature Gran % (Auto) Neut % (Auto) Lymph % (Auto) [place] % (Auto) Eos % (Auto) Baso % (Auto) Lymph # (Auto) [place] # (Auto) Eos # (Auto) Baso # (Auto) Abs Immat Gran (auto) Absolute Neuts (auto) Absolute Nucleated RBC Nucleated RBC % (auto) Neutrophils % (Manual) Band Neutrophils % Lymphocytes % (Manual) Monocytes % (Manual) Basophils % (Manual) Metamyelocytes % Abs Neuts (Manual) Lymphocytes # (Manual) Monocytes # (Manual) Basophils # (Manual) Metamyelocytes # Toxic Granulation Platelet Estimate Large Platelets Plt Morphology Comment RBC Morphology Polychromasia Hypochromasia Macrocytosis Spherocytes Ovalocytes Stomatocytes Hold Purple Top VBG pH 7.59 H VBG pCO2 31 VBG pO2 43 VBG HCO3 30 H VBG O2 Saturation 73.0 VBG Base Excess 8.9 Anion Gap Estim Creat Clear Calc Estimated GFR POC Glucose 175 H Random Glucose Calcium Phosphorus Magnesium Albumin Random Vancomycin 15.0 Blood Type Antibody Screen Crossmatch 09/21/23 09/21/23 09/21/23 04:47 06:41 11:32 MCV 93.4 MCH 29.3 MCHC 31.3 RDW 15.0 Plt Count 363 D MPV 9.8 Immature Gran % (Auto) Cancelled Neut % (Auto) Cancelled Lymph % (Auto) Cancelled [place] % (Auto) Cancelled Eos % (Auto) Cancelled Baso % (Auto) Cancelled Lymph # (Auto) Cancelled [place] # (Auto) Cancelled Eos # (Auto) Cancelled Baso # (Auto) Cancelled Abs Immat Gran (auto) Cancelled Absolute Neuts (auto) Cancelled Absolute Nucleated RBC 0.130 H Nucleated RBC % (auto) 0.6 H Neutrophils % (Manual) 83 H Band Neutrophils % 8 H Lymphocytes % (Manual) 4 L Monocytes % (Manual) 3 Basophils % (Manual) 1 Metamyelocytes % 1 Abs Neuts (Manual) 20.0 H Lymphocytes # (Manual) 0.9 L Monocytes # (Manual) 0.7 Basophils # (Manual) 0.2 Metamyelocytes # 0.2 Toxic Granulation PRESENT Platelet Estimate NORMAL Large Platelets PRESENT Plt Morphology Comment NOTED RBC Morphology NOTED Polychromasia 1+ (0-2) Hypochromasia 1+ (5-14) Macrocytosis 1+ (5-14) Spherocytes 1+ (0-2) Ovalocytes 1+ (5-14) Stomatocytes 1+ (5-14) Hold Purple Top SEE NOTE VBG pH VBG pCO2 VBG pO2 VBG HCO3 VBG O2 Saturation VBG Base Excess Anion Gap 25 H Estim Creat Clear Calc 136.7 Estimated GFR > 60 POC Glucose 226 H Random Glucose 186 H Calcium 8.4 Phosphorus 3.7 Magnesium 2.1 Albumin 3.4 L Random Vancomycin Blood Type A Positive Antibody Screen NEGATIVE Crossmatch See Detail Procedures Date of Service Date of Service: 09/21/23 Arterial Line Size (Gauge): 20 Progress Note: A&P Assessment and plan (1) Necrotizing soft tissue infection: Status: Acute Assessment and Plan: I have changed his dressing Dakin solution packing with 2 Kerlix rolls applied Open wound clean We will need good wound care with Dakin solution dressing changes Overall much improved Family updated We will need premedication with morphine for dressing changes Pain management Time Spent With Patient Time: Total time managing care of this patient today ____ minutes. Quality Stroke Does the patient have a stroke diagnosis?: No VTE Prior VTE?: No VTE Risk Level:: Medical - moderate - high VTE Device Contraindication: N/A - Device Ordered VTE Drug Contraindication: Treatment Not Tolerated
--- NOTE | 2023-09-21 13:49 | P.PNGS_ITS ---
Subjective Subjective Date of Service: 09/21/23 <Savannah Chavez PA-C - Last Filed: 09/21/23 13:51> 09/24/23 <Michael Matthew MD - Last Filed: 09/24/23 08:52> Interval history: Extubated. C/o pain at wound site. <Savannah Chavez PA-C - Last Filed: 09/21/23 13:51> Physical Exam 2 Vital Signs: Vital Signs: Last Vital Signs Temp 99.8 F 09/21/23 11:51 Pulse 126 H 09/21/23 13:00 Resp 17 09/21/23 13:00 BP 123/35 L 09/21/23 13:00 Pulse Ox 90 L 09/21/23 13:00 O2 Del Method Nasal Cannula 09/21/23 13:00 O2 Flow Rate 2 09/21/23 13:00 FiO2 30 09/20/23 11:33 BMI result Body Mass Index 50.2 <Savannah Chavez PA-C - Last Filed: 09/21/23 13:51> Const: General: no acute distress and alert <Saavnnah Chavez PA-C - Last Filed: 09/21/23 13:51> Orientation/consciousness: patient oriented x3 <INOCENTE Ortega Last Filed: 09/21/23 13:51> Skin: Other: large open wound on proximal posterior thigh and buttock, with some draining sinuses on margins on skin at the groin open wound now with healthy appearing tissue, no ongoing gangrene/necrosis <Savannah Chavez PA-C - Last Filed: 09/21/23 13:51> Neuro: General: patient oriented x3 <INOCENTE Ortega Last Filed: 09/21/23 13:51> Objective Data Active Medications Acetaminophen (Acetaminophen Oral Liquid 650 Mg/20.3 Ml Solution) 650 mg PO Q4H PRN PRN Reason: Fever Last Admin: 09/18/23 04:57 Dose: 650 mg Documented By: REBECCA Fentanyl (Fentanyl Citrate/Pf 100 Mcg/2 Ml Vial) 50 mcg IVPUSH Q2H PRN; Protocol PRN Reason: Pain, Severe (Pain Scale 7-10) Last Admin: 09/21/23 10:15 Dose: 50 mcg Documented By: CECIL Glucose (Glucose Gel 15 Gm Gel..Gram.) 15 gm PO Q15M PRN; Protocol PRN Reason: per Hypoglycemia Standing Ord. Dextrose (D10) 250 mls @ 750 mls/hr IV Q15M PRN PRN Reason: per Hypoglycemia Standing Ord. Piperacillin Sod/Tazobactam (Sod 4.5 gm/ Sodium Chloride) 100 mls @ 200 mls/hr IV Q6H [facility] Last Infusion: 09/21/23 09:00 Dose: Infused Documented By: CECIL Vancomycin HCl 1,250 mg/ (Sodium Chloride) 250 mls @ 166.667 mls/hr IV Q12H [facility] Last Infusion: 09/21/23 13:28 Dose: Infused Documented By: CECIL Insulin Glargine (Insulin Glargine,Hum.Rec.Anlog 100 Unit/Ml 10 Ml Vial) 10 unit SUBCUT BID [facility] Insulin Human Lispro (Insulin Lispro 100 Unit/Ml 3 Ml Vial) 0 unit SUBCUT QIDACHS [facility]; Protocol Last Admin: 09/21/23 11:50 Dose: 4 unit Documented By: CECIL Naloxone HCl (Naloxone Hcl 0.4 Mg/Ml Vial) 0.2 mg IVPUSH Q2M PRN PRN Reason: Excessive sedation or RR < 8 Pharmacy Consult (Consult Rx Vancomycin Dosing) 1 each MISCELLANE DAILY PRN PRN Reason: Consult order Sodium Chloride (0.9 % Sodium Chloride Flush 3 Ml Syringe) 3 ml IVFLUSH QSHIFT [facility] Last Admin: 09/21/23 08:24 Dose: 3 ml Documented By: CECIL Sodium Hypochlorite (Sodium Hypochlorite 0.125% 473 Ml Solution) 1 appl TOPICAL DAILY [facility] Last Admin: 09/21/23 10:15 Dose: 1 appl Documented By: CECIL <Savannah Chavez PA-C - Last Filed: 09/21/23 13:51> Labs CBC & Chem 7: 09/24/23 05:39 09/24/23 05:39 <Savannah Chavez PA-C - Last Filed: 09/21/23 13:51> Labs: Laboratory Results - last 24 hr 09/20/23 09/20/2324 17:38 19:43 20:51 MCV MCH MCHC RDW Plt Count MPV Immature Gran % (Auto) Neut % (Auto) Lymph % (Auto) [place] % (Auto) Eos % (Auto) Baso % (Auto) Lymph # (Auto) [place] # (Auto) Eos # (Auto) Baso # (Auto) Abs Immat Gran (auto) Absolute Neuts (auto) Absolute Nucleated RBC Nucleated RBC % (auto) Neutrophils % (Manual) Band Neutrophils % Lymphocytes % (Manual) Monocytes % (Manual) Basophils % (Manual) Metamyelocytes % Abs Neuts (Manual) Lymphocytes # (Manual) Monocytes # (Manual) Basophils # (Manual) Metamyelocytes # Toxic Granulation Platelet Estimate Large Platelets Plt Morphology Comment RBC Morphology Polychromasia Hypochromasia Macrocytosis Spherocytes Ovalocytes Stomatocytes Hold Purple Top VBG pH VBG pCO2 VBG pO2 VBG HCO3 VBG O2 Saturation VBG Base Excess Anion Gap 17 Estim Creat Clear Calc 151.7 Estimated GFR > 60 POC Glucose 167 H 160 H Random Glucose 170 H Calcium 8.4 Phosphorus 2.1 L Magnesium 2.1 Albumin Random Vancomycin Blood Type Antibody Screen Crossmatch 09/20/23 09/21/23 09/21/23 20:59 00:03 04:44 MCV MCH MCHC RDW Plt Count MPV Immature Gran % (Auto) Neut % (Auto) Lymph % (Auto) [place] % (Auto) Eos % (Auto) Baso % (Auto) Lymph # (Auto) [place] # (Auto) Eos # (Auto) Baso # (Auto) Abs Immat Gran (auto) Absolute Neuts (auto) Absolute Nucleated RBC Nucleated RBC % (auto) Neutrophils % (Manual) Band Neutrophils % Lymphocytes % (Manual) Monocytes % (Manual) Basophils % (Manual) Metamyelocytes % Abs Neuts (Manual) Lymphocytes # (Manual) Monocytes # (Manual) Basophils # (Manual) Metamyelocytes # Toxic Granulation Platelet Estimate Large Platelets Plt Morphology Comment RBC Morphology Polychromasia Hypochromasia Macrocytosis Spherocytes Ovalocytes Stomatocytes Hold Purple Top VBG pH 7.59 H VBG pCO2 31 VBG pO2 43 VBG HCO3 30 H VBG O2 Saturation 73.0 VBG Base Excess 8.9 Anion Gap Estim Creat Clear Calc Estimated GFR POC Glucose 175 H Random Glucose Calcium Phosphorus Magnesium Albumin Random Vancomycin 15.0 Blood Type Antibody Screen Crossmatch 09/21/23 09/21/23 09/21/23 04:47 06:41 11:32 MCV 93.4 MCH 29.3 MCHC 31.3 RDW 15.0 Plt Count 363 D MPV 9.8 Immature Gran % (Auto) Cancelled Neut % (Auto) Cancelled Lymph % (Auto) Cancelled [place] % (Auto) Cancelled Eos % (Auto) Cancelled Baso % (Auto) Cancelled Lymph # (Auto) Cancelled [place] # (Auto) Cancelled Eos # (Auto) Cancelled Baso # (Auto) Cancelled Abs Immat Gran (auto) Cancelled Absolute Neuts (auto) Cancelled Absolute Nucleated RBC 0.130 H Nucleated RBC % (auto) 0.6 H Neutrophils % (Manual) 83 H Band Neutrophils % 8 H Lymphocytes % (Manual) 4 L Monocytes % (Manual) 3 Basophils % (Manual) 1 Metamyelocytes % 1 Abs Neuts (Manual) 20.0 H Lymphocytes # (Manual) 0.9 L Monocytes # (Manual) 0.7 Basophils # (Manual) 0.2 Metamyelocytes # 0.2 Toxic Granulation PRESENT Platelet Estimate NORMAL Large Platelets PRESENT Plt Morphology Comment NOTED RBC Morphology NOTED Polychromasia 1+ (0-2) Hypochromasia 1+ (5-14) Macrocytosis 1+ (5-14) Spherocytes 1+ (0-2) Ovalocytes 1+ (5-14) Stomatocytes 1+ (5-14) Hold Purple Top SEE NOTE VBG pH VBG pCO2 VBG pO2 VBG HCO3 VBG O2 Saturation VBG Base Excess Anion Gap 25 H Estim Creat Clear Calc 136.7 Estimated GFR > 60 POC Glucose 226 H Random Glucose 186 H Calcium 8.4 Phosphorus 3.7 Magnesium 2.1 Albumin 3.4 L Random Vancomycin Blood Type A Positive Antibody Screen NEGATIVE Crossmatch See Detail <Savannah Chavez PA-C - Last Filed: 09/21/23 13:51> Procedures Date of Service Date of Service: 09/21/23 <Savannah Chavez PA-C - Last Filed: 09/21/23 13:51> 09/24/23 <Michael Matthew MD - Last Filed: 09/24/23 08:52> Arterial Line Size (Gauge): 20 <Savannah Chavez PA-C - Last Filed: 09/21/23 13:51> Progress Note: A&P Assessment and plan (1) Necrotizing soft tissue infection: Status: Acute <INOCENTE Ortega Last Filed: 09/21/23 13:51> (2) Type 2 diabetes mellitus: Status: Acute <Savannah Chavez PA-C - Last Filed: 09/21/23 13:51> Assessment and Plan: s/p multiple debridement in the OR wound now with good healthy looking tissue Dakins' dressings reapplied continue daily dressing changes will need good premedication for pain prior to change <Savannah Chavez PA-C - Last Filed: 09/21/23 13:51> Time Spent With Patient Time: Total time managing care of this patient today ____ minutes. <Savannah Chavez PA-C - Last Filed: 09/21/23 13:51> Quality Stroke Does the patient have a stroke diagnosis?: No <Savannah Chavez PA-C - Last Filed: 09/21/23 13:51> VTE Prior VTE?: No <Savannah Chavez PA-C - Last Filed: 09/21/23 13:51> VTE Risk Level:: Medical - moderate - high <Savannah Chavez PA-C - Last Filed: 09/21/23 13:51> VTE Device Contraindication: N/A - Device Ordered <Savannah Chavez PA-C - Last Filed: 09/21/23 13:51> VTE Drug Contraindication: Treatment Not Tolerated <Savannah Chavez PA-C - Last Filed: 09/21/23 13:51>
[2023-09-21] MEDS: Acetaminophen Oral Liquid 650 MG/20.3 ML SOLUTION PO (14:05)
[2023-09-21] MEDS: Ibuprofen 400 MG TABLET PO (15:48)
[2023-09-21] MEDS: Dextrose 5 % 1,000 ML 100 ML IVCONT (15:48)
--- NOTE | 2023-09-21 16:56 | MHC.SL.SWA ---
Speech Pathologist Impression: Risk of aspiration, oropharyngeal dysphagia Risk of Aspiration Due to: Hx of Recent Extubation Dysphasia Diet Status: Start on NDD1/NTL Liquid Consistency and Strategies for Safe Swallow: Liquid Intake Recommendation: [place] Thick Liquid Intake Strategies: Small Sips No Straws Solid Food Consistency: Dietary Recommendations: Pureed (NDD1) Additional Modifications to Solid Foods: Recommend START on PUREED (NDD1) solids and NECTAR THICK liquids, pills CRUSHED in PUREE. Patient requires 1:1 feeding and strict aspiration precautions. Patient is post-extubation, difficulties likely secondary to overall generalized weakness. VOICE PROFESSOR will continue to follow to monitor tolerance of modified diet and feeding needs, re-assess for potential upgrade if/when appropriate. Oral Medication Intake: Crushed with Puree Please contact the pharmacy regarding appropriate crushable or liquid drug formulations that are available whenever modified delivery is recommended. Compensatory Strategies and Precautions to be Taken for Safe Swallow: Sitting Upright (90 deg) No Straw Liquids from Cup Liquids from Spoon Small Bites and Sips Alternate Liquids/Solids Rate of Ingestion Change Oral Check Avoid Specific Foods Supervision While Eating and Drinking for Safe Swallow: Total Assistance (1:1) Foods to Avoid: Mixed textures Swallowing Recommended Treatments: Compens. Strategy Educat. Recommendation for Speech: Inpatient Speech Therapy Comment: Frequency/Duration: M-F PRN Date Range for Service Req: Timeline to reassess: [place] Dehydration Reactor Operator Clinican/Clinical Fellow: No Supervisory Statement: I have reviewed and agree with the student/clinical fellow's documentation: N/A Speech Language Pathologist: Mildred Meléndez M.A., CCC-VOICE PROFESSOR
[2023-09-21 17:36] LABS: Glucose, Whole Blood 368 mg/dL (60-115)
[2023-09-21] MEDS: HYDROmorphone HCl 0.5 MG/0.5 ML SYRINGE IVPUSH ×2 (17:45→23:32)
--- NOTE | 2023-09-21 18:33 | PC.NURSE ---
Pt transferred to floor around 1400. Upon initial assessment pt found to be febrile at 103.0. PRN tylenol administered and cooling blanket placed. notified of fever. Additional dose of ibuprofen administered. Effect pending at this time. No other concerns at this time.
[2023-09-21 20:43] LABS: Glucose, Whole Blood 344 mg/dL (60-115)
[2023-09-21] MEDS: Insulin Glargine,Hum.rec.anlog 100 UNIT/ML 10 ML VIAL 10 UNIT SUBCUT (21:34)
[2023-09-22] VITALS (11 sets, daily range): BP systolic 115–144; BP diastolic 50–72; PULSE 78–107; RESP 16–20; TEMP 36.1–37.3; O2SAT 88–93
[2023-09-22] MEDS: Piperacillin Sodium/Tazobactam 4.5 GM in 0.9 % Sodium Chloride 100 ML IV ×3 (02:01→13:24)
[2023-09-22] MEDS: Dextrose 5 % 1,000 ML 100 ML IVCONT (02:02)
[2023-09-22] MEDS: HYDROmorphone HCl 0.5 MG/0.5 ML SYRINGE IVPUSH ×3 (04:42→18:10)
[2023-09-22 06:13] LABS: MANUAL DIFF FLAG NO
[2023-09-22 06:19] LABS: Basophils Absolute Auto 0.1 X10*3/uL (0.0-0.2); Basophils Percent Auto 0.3 % (0-2); Eosinophils Absolute Auto 0.1 X10*3/uL (0.0-0.4); Eosinophils Percent Auto 0.3 % (0-4); Hematocrit 26.3 % (42.0-52.0); Hemoglobin 8.4 g/dl (14.0-18.0); Imm Gran Abs Auto 0.56 X10*3/uL (0.00-0.03); Imm Gran Pct Auto 2.5 % (0.0-0.4); Lymphocytes Absolute Auto 2.3 X10*3/uL (1.2-4.9); Lymphocytes Percent Auto 10.1 % (20-40); Mean Corpuscular HGB Conc 31.9 g/dl (31.0-36.0); Mean Corpuscular Hemoglobin 29.6 pg (27.0-33.0); Mean Corpuscular Volume 92.6 fL (80.0-98.0); Mean Platelet Volume 9.6 fL (9.4-12.4); Monocytes Absolute Auto 1.2 X10*3/uL (0.1-1.2); Monocytes Percent Auto 5.1 % (2-11); NRBC Pct Auto 0.6 /100WBC (0.0-0.2); Neutrophils Absolute Auto 18.5 x10*3/uL (2.0-8.3); Neutrophils Percent Auto 81.7 % (45-73); Platelet Count 441 X10*3/uL (160-400); Red Blood Count 2.84 X10*6/uL (4.60-5.80); Red Cell Distribution Width 15.2 % (11.0-16.0); White Blood Count 22.6 X10*3/uL (4.8-10.8)
[2023-09-22 06:20] LABS: VBG Base Excess 7.6 mmol/L; VBG HCO3 29 mmol/L (22-26); VBG pCO2 30 mmHg; VBG pH 7.59 (7.32-7.43); VBG pO2 93 mmHg
[2023-09-22 06:25] LABS: Venous Blood Gas Refer to POC result
[2023-09-22 06:49] LABS: Albumin Level 3.2 g/dL (3.5-5.0); Anion Gap 18 (12-20); Blood Urea Nitrogen 21 mg/dL (9-16); Calcium 8.7 mg/dL (8.4-10.2); Carbon Dioxide 25 mmol/L (22-29); Chloride 121 mmol/L (96-108); Creatinine Clr Calc Pharmacy 152.8; Estimated Glomerular Filt Rate > 60; Glucose Random 305 mg/dL (60-115); Magnesium 2.5 mg/dL (1.6-2.6); Phosphorus 2.4 mg/dL (2.7-4.5)
[2023-09-22 07:06] LABS: Potassium 2.9 mmol/L (3.3-5.1); Sodium 161 mmol/L (135-145)
[2023-09-22 07:46] LABS: Glucose, Whole Blood 272 mg/dL (60-115)
[2023-09-22] MEDS: Insulin Lispro 100 UNIT/ML 3 ML VIAL SUBCUT ×4 (08:26→20:36)
[2023-09-22] MEDS: Insulin Glargine,Hum.rec.anlog 100 UNIT/ML 10 ML VIAL 10 UNIT SUBCUT ×2 (08:27→20:36)
[2023-09-22] MEDS: 0.9 % Sodium Chloride Flush 3 ML SYRINGE IVFLUSH ×3 (08:27→20:37)
[2023-09-22] MEDS: Potassium Chloride ER 20 MEQ TAB.ER.PRT 40 MEQ PO (08:27)
[2023-09-22] MEDS: Sodium Hypochlorite 0.125% 473 ML SOLUTION 1 APPL TOPICAL (08:35)
--- NOTE | 2023-09-22 08:51 | HO.PM.IMPN ---
Subjective Subjective Date of Service: 09/22/23 Interval History: weakness Physical Exam Vital Signs: Vital Signs: Last Vital Signs Temp 97.0 F 09/22/23 07:10 Pulse 82 09/22/23 07:10 Resp 18 09/22/23 07:10 BP 140/72 H 09/22/23 07:10 Pulse Ox 92 09/22/23 07:10 O2 Del Method Nasal Cannula 09/22/23 07:10 O2 Flow Rate 2 09/22/23 03:28 FiO2 30 09/20/23 11:33 BMI result Body Mass Index 50.2 Const: General: no acute distress and alert Orientation/consciousness: patient oriented x3 Skin: Other: large open wound on proximal posterior thigh and buttock, with some draining sinuses on margins on skin at the groin open wound now with healthy appearing tissue, no ongoing gangrene/necrosis Neuro: General: patient oriented x3 Objective Data Active Medications Acetaminophen (Acetaminophen Oral Liquid 650 Mg/20.3 Ml Solution) 650 mg PO Q4H PRN PRN Reason: Fever Last Admin: 09/21/23 14:05 Dose: 650 mg Documented By: CECIL Fentanyl (Fentanyl Citrate/Pf 100 Mcg/2 Ml Vial) 50 mcg IVPUSH Q2H PRN; Protocol PRN Reason: Pain, Severe (Pain Scale 7-10) Last Admin: 09/21/23 10:15 Dose: 50 mcg Documented By: CECIL Glucose (Glucose Gel 15 Gm Gel..Gram.) 15 gm PO Q15M PRN; Protocol PRN Reason: per Hypoglycemia Standing Ord. Hydromorphone HCl (Hydromorphone Hcl 0.5 Mg/0.5 Ml Syringe) 0.5 mg IVPUSH Q3H PRN; Protocol PRN Reason: moderate pain Last Admin: 09/22/23 04:42 Dose: 0.5 mg Documented By: SONDRA Dextrose (D10) 250 mls @ 750 mls/hr IV Q15M PRN PRN Reason: per Hypoglycemia Standing Ord. Piperacillin Sod/Tazobactam (Sod 4.5 gm/ Sodium Chloride) 100 mls @ 200 mls/hr IV Q6H [facility] Last Admin: 09/22/23 08:29 Dose: 200 mls/hr Documented By: MIKE Vancomycin HCl 1,250 mg/ (Sodium Chloride) 250 mls @ 166.667 mls/hr IV Q12H [facility] Last Infusion: 09/22/23 01:32 Dose: Infused Documented By: SONDRA Dextrose (D5w) 1,000 mls @ 100 mls/hr IVCONT .Q10H [facility] Last Admin: 09/22/23 02:02 Dose: 100 mls/hr Documented By: SONDRA Insulin Glargine (Insulin Glargine,Hum.Rec.Anlog 100 Unit/Ml 10 Ml Vial) 10 unit SUBCUT BID [facility] Last Admin: 09/22/23 08:27 Dose: 10 unit Documented By: MIKE Insulin Human Lispro (Insulin Lispro 100 Unit/Ml 3 Ml Vial) 0 unit SUBCUT QIDACHS [facility]; Protocol Last Admin: 09/22/23 08:26 Dose: 6 unit Documented By: MIKE Naloxone HCl (Naloxone Hcl 0.4 Mg/Ml Vial) 0.2 mg IVPUSH Q2M PRN PRN Reason: Excessive sedation or RR < 8 Pharmacy Consult (Consult Rx Vancomycin Dosing) 1 each MISCELLANE DAILY PRN PRN Reason: Consult order Sodium Chloride (0.9 % Sodium Chloride Flush 3 Ml Syringe) 3 ml IVFLUSH QSHIFT [facility] Last Admin: 09/22/23 08:27 Dose: 3 ml Documented By: MIKE Sodium Hypochlorite (Sodium Hypochlorite 0.125% 473 Ml Solution) 1 appl TOPICAL DAILY [facility] Last Admin: 09/22/23 08:35 Dose: 1 appl Documented By: MIKE Labs 09/22/23 06:07 09/22/23 06:07 Labs: Laboratory Results - last 24 hr 09/21/23 09/21/23 09/21/23 06:41 11:32 17:31 MCV MCH MCHC RDW Plt Count MPV Immature Gran % (Auto) Neut % (Auto) Lymph % (Auto) [place] % (Auto) Eos % (Auto) Baso % (Auto) Lymph # (Auto) [place] # (Auto) Eos # (Auto) Baso # (Auto) Abs Immat Gran (auto) Absolute Neuts (auto) Absolute Nucleated RBC Nucleated RBC % (auto) VBG pH VBG pCO2 VBG pO2 VBG HCO3 VBG O2 Saturation VBG Base Excess Anion Gap Estim Creat Clear Calc Estimated GFR POC Glucose 226 H 368 H* Random Glucose Calcium Phosphorus Magnesium Albumin Crossmatch See Detail 09/21/23 09/22/23 09/22/23 20:35 06:07 06:10 MCV 92.6 MCH 29.6 MCHC 31.9 RDW 15.2 Plt Count 441 H MPV 9.6 Immature Gran % (Auto) 2.5 H Neut % (Auto) 81.7 H Lymph % (Auto) 10.1 L [place] % (Auto) 5.1 Eos % (Auto) 0.3 Baso % (Auto) 0.3 Lymph # (Auto) 2.3 [place] # (Auto) 1.2 Eos # (Auto) 0.1 Baso # (Auto) 0.1 Abs Immat Gran (auto) 0.56 H Absolute Neuts (auto) 18.5 H Absolute Nucleated RBC 0.130 H Nucleated RBC % (auto) 0.6 H VBG pH 7.59 H VBG pCO2 30 VBG pO2 93 VBG HCO3 29 H VBG O2 Saturation Not Reportable VBG Base Excess 7.6 Anion Gap 18 Estim Creat Clear Calc 152.8 Estimated GFR > 60 POC Glucose 344 H Random Glucose 305 H Calcium 8.7 Phosphorus 2.4 L Magnesium 2.5 Albumin 3.2 L Crossmatch 09/22/23 07:17 MCV MCH MCHC RDW Plt Count MPV Immature Gran % (Auto) Neut % (Auto) Lymph % (Auto) [place] % (Auto) Eos % (Auto) Baso % (Auto) Lymph # (Auto) [place] # (Auto) Eos # (Auto) Baso # (Auto) Abs Immat Gran (auto) Absolute Neuts (auto) Absolute Nucleated RBC Nucleated RBC % (auto) VBG pH VBG pCO2 VBG pO2 VBG HCO3 VBG O2 Saturation VBG Base Excess Anion Gap Estim Creat Clear Calc Estimated GFR POC Glucose 272 H Random Glucose Calcium Phosphorus Magnesium Albumin Crossmatch Assessment and Plan (1) Necrotizing soft tissue infection: Status: Acute Plan 48M PMH DM, morbid obesity, htn, mood disorder, KIM, presented 09/14/23 with perneal erythema, pain, 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 admitted to ICU, treated with vanc, zosyn, clinda, pressor support, insulin. underwent debridement 09/14/23 and 09/17/23. patient eventually extubated, weaned off pressors. downgraded 09/21/23. course complicated by acute blood loss and inflammatory anemia requiring transfusions, hypernatremia. 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 sepsis resolved, continue vanc, zosyn, cultures negative, follow up ID s/p debridements, gen surg following, continue local care DM with DKa dka resolved, continue insulin acute hypoxic respiratory failure due to sepsis extubated successfully, continue to wean o2 mohini resolved acute hypokalemia replace and montior acute hypernatremia d5w, monitor icu/critical illness myopathy continue pureed solids, nectar thick liquids, regional cra following PT acute blood loss and inflammatory anemia monitor mood disorder sertraline restarted at half dose htn holding lisinopril for now for mohini morbid obesity weight loss recommended KIM cpap at night dvt prophylaxis - lovenox full code reason for continued hospitalization:severe electrolyte abnormalities Quality Stroke Does the patient have a stroke diagnosis?: No VTE Prior VTE?: No VTE Risk Level:: Medical - moderate - high VTE Device Contraindication: N/A - Device Ordered VTE Drug Contraindication: Treatment Not Tolerated
[2023-09-22 09:01] LABS: Vancomycin Random 15.2 mcg/mL (15-20)
--- NOTE | 2023-09-22 09:19 | HE.PHANOTE ---
vanco dose adjustment based on scr and trough of 15.2 dose continued at 1250 q 12h. next trough 09/22 @ 2100
[2023-09-22] MEDS: vancomycin HCL 1,250 MG in 0.9 % Sodium Chloride 250 ML 166.67 MG IV (11:19)
[2023-09-22] MEDS: Enoxaparin Sodium 40 MG/0.4 ML SYRINGE SUBCUT (11:20)
[2023-09-22] MEDS: Dextrose 5 % 1,000 ML 150 ML IVCONT ×2 (11:20→20:41)
[2023-09-22 11:45] LABS: Glucose, Whole Blood 320 mg/dL (60-115)
[2023-09-22 16:12] LABS: Glucose, Whole Blood 330 mg/dL (60-115)
--- NOTE | 2023-09-22 17:12 | P.CNID_ITS ---
History of Present Illness Data of Consult Service Date: 09/22/23 Requesting physician: Abdirahman Franks Primary Care Provider: Dillon Alcantara NP HPI Reason for consult: necrotizing fasciitis,seen by Surgery He presents with right groin and thigh redness. He had that one week before admission. He has been given Vancomycin and Zosyn. He still has fevers over 104. WBC 22,000. Review of Systems 2 Review of Systems: Yes all other systems are reviewed and are negative PMFSH Past Medical History Medical History Necrotizing soft tissue infection Soft tissue infection Morbid obesity Back pain KIM (obstructive sleep apnea) Anxiety and depression Elevated WBCs Type 2 diabetes mellitus HTN (hypertension) Family History Family history: reviewed and not pertinent Surgical History Surgical History Hx of oral surgery Social History Social History Household Members: None Housing: Apartment Do you presently have visiting nurse or other home services: Yes ([employer] 4 times a week) Alcohol intake: never Patient Tobacco Use Status: Current everyday Tobacco user Tobacco use type: Cigarette Cigarettes Per Day: 2 Years Smoked: 25 Smoked in Last 30 Days: Yes e-Cigarette/Vaping Use: Never Used Patient Interested in Nicotine Replacement: No Use of substances other than those prescribed or required for medical reasons: No Substance Use Type: Marijuana Substance Use Frequency: Chronic Longstanding Currently Displaying Signs/Symptoms of Drug Intoxication Withdrawal: No Have you been hit, kicked, punched, or otherwise hurt by someone within the past year? If so, by whom?: No Do you feel safe in your current relationship?: No Current Relationship Is there a partner from a previous relationship who is making you feel unsafe now?: No Are you made to feel afraid or neglected: No Advance Directives: No Advance Directives Information Provided: Yes Advance Directives on File: Yes Advance Directives Date on File: 09/14/23 Do you have a plan to hurt others: No Plan Recently lost weight without trying: Unsure How much weight loss: Unsure Eating poorly because of decreased appetite: Yes Nutrition screen score: 5 Nutrition Risks: Dental problems service: No Meds Allergies Allergy/AdvReac Type Severity Reaction Status Date / Time No Known Allergies Allergy Verified 09/14/23 11:03 Active Medications: Current Medications Acetaminophen (Acetaminophen Oral Liquid 650 Mg/20.3 Ml Solution) 650 mg PO Q4H PRN PRN Reason: Fever Last Admin: 09/21/23 14:05 Dose: 650 mg Cyanocobalamin (Cyanocobalamin (Vitamin B-12) 1,000 Mcg Tablet) 1,000 mcg PO DAILY [facility] Enoxaparin Sodium (Enoxaparin Sodium 40 Mg/0.4 Ml Syringe) 40 mg SUBCUT Q24H [facility] Last Admin: 09/22/23 11:20 Dose: 40 mg Glucose (Glucose Gel 15 Gm Gel..Gram.) 15 gm PO Q15M PRN; Protocol PRN Reason: per Hypoglycemia Standing Ord. Hydromorphone HCl (Hydromorphone Hcl 0.5 Mg/0.5 Ml Syringe) 0.5 mg IVPUSH Q3H PRN; Protocol PRN Reason: moderate pain Last Admin: 09/22/23 14:55 Dose: 0.5 mg Dextrose (D10) 250 mls @ 750 mls/hr IV Q15M PRN PRN Reason: per Hypoglycemia Standing Ord. Piperacillin Sod/Tazobactam (Sod 4.5 gm/ Sodium Chloride) 100 mls @ 200 mls/hr IV Q6H [facility] Last Infusion: 09/22/23 14:10 Dose: Infused Vancomycin HCl 1,250 mg/ (Sodium Chloride) 250 mls @ 166.667 mls/hr IV Q12H [facility] Last Infusion: 09/22/23 12:53 Dose: Infused Dextrose (D5w) 1,000 mls @ 150 mls/hr IVCONT .Q6H40M [facility] Last Admin: 09/22/23 17:02 Dose: Not Given Insulin Glargine (Insulin Glargine,Hum.Rec.Anlog 100 Unit/Ml 10 Ml Vial) 10 unit SUBCUT BID [facility] Last Admin: 09/22/23 08:27 Dose: 10 unit Insulin Human Lispro (Insulin Lispro 100 Unit/Ml 3 Ml Vial) 0 unit SUBCUT QIDACHS [facility]; Protocol Last Admin: 09/22/23 17:01 Dose: 8 unit Naloxone HCl (Naloxone Hcl 0.4 Mg/Ml Vial) 0.2 mg IVPUSH Q2M PRN PRN Reason: Excessive sedation or RR < 8 Pharmacy Consult (Consult Rx Vancomycin Dosing) 1 each MISCELLANE DAILY PRN PRN Reason: Consult order Sertraline HCl (Sertraline Hcl 100 Mg Tablet) 100 mg PO DAILY [facility] Sodium Chloride (0.9 % Sodium Chloride Flush 3 Ml Syringe) 3 ml IVFLUSH QSHIFT [facility] Last Admin: 09/22/23 14:57 Dose: 3 ml Sodium Hypochlorite (Sodium Hypochlorite 0.125% 473 Ml Solution) 1 appl TOPICAL DAILY [facility] Last Admin: 09/22/23 08:35 Dose: 1 appl Home Medications ?Medication ?Instructions ?Recorded ?Confirmed ?Last Taken ?Type cholecalciferol (vitamin D3) 50 1 cap PO DAILY 02/27/22 09/14/23 Unknown History mcg (2,000 unit) capsule (Vitamin D3) clonazepam 1 mg tablet 1 tab PO BID 02/27/22 09/14/23 Unknown History cyanocobalamin (vitamin B-12) 1 tab PO DAILY 02/27/22 09/14/23 Unknown History 1,000 mcg tablet dulaglutide 4.5 mg/0.5 mL 0.5 ml subcut QWEEK 02/27/22 02/27/22 Unknown History subcutaneous pen injector (Trulicity) empagliflozin 25 mg tablet 1 tab PO DAILY 02/27/22 09/15/23 Unknown History (Jardiance) gabapentin 300 mg capsule 1 cap PO BID 02/27/22 09/14/23 Unknown History lisinopril 20 mg tablet 1 tab PO DAILY 02/27/22 09/14/23 03/14/22 History mirtazapine 45 mg tablet 1 tab BEDTIME 02/27/22 09/14/23 Unknown History ropinirole 1 mg tablet 1 tab PO BEDTIME 02/27/22 09/14/23 Unknown History sertraline 100 mg tablet 2 tab PO DAILY 02/27/22 09/14/23 Unknown History tramadol 50 mg tablet 1 - 2 tab PO Q8H PRN Pain 02/27/22 09/14/23 Unknown History mometasone 200 mcg/actuation HFA 1 puff inhalation BID 09/14/23 09/14/23 Unknown History aerosol inhaler (Asmanex HFA) ziprasidone HCl 40 mg capsule 40 mg PO DAILY@1800 09/14/23 09/15/23 Unknown History Physical Exam 2 Vital Signs: Vital Signs: Last Vital Signs Temp 97.3 F 09/22/23 15:15 Pulse 107 H 09/22/23 15:15 Resp 20 09/22/23 15:15 BP 120/60 09/22/23 15:15 Pulse Ox 92 09/22/23 15:16 O2 Del Method Nasal Cannula 09/22/23 15:16 O2 Flow Rate 3 09/22/23 15:16 FiO2 30 09/20/23 11:33 BMI result Body Mass Index 50.2 Const: General: cooperative HEENT: Head: Yes normal to inspection Face and sinus: Yes normal facial exam Mouth: Normal oral and palatal mucosa present Teeth and gingiva: d entition normal Eyes: General: appearance normal, both eyes and all related structures P upils: Equal, round and reactive pupils present Resp: Effort & Inspection: normal respiratory effort Cardio: Rate: regular rate Rhythm: regular rhythm GI: Palpation (GI): Soft to palpation and nontender : General: Yes no CVA tenderness Back/Spine/Pelvis: Back: no CVA tenderness Skin: General skin exam: no rashes or lesions noted Neuro: General: moves all extremities Cranial nerves: Yes Equal, round and reactive pupils present Extrem: Other: groin area reddened and swollen slightly lateral red leg covered abrasion Psych: Appearance: grossly normal Results Labs 09/22/23 06:07 09/22/23 06:07 Labs: Short CBC 09/22/23 Range/Units 06:07 WBC 22.6 H (4.8-10.8) X10*3/uL Hgb 8.4 L D (14.0-18.0) g/dl Hct 26.3 L D (42.0-52.0) % Plt Count 441 H (160-400) X10*3/uL BMP 09/22/23 06:07 Sodium 161 H* Potassium 2.9 L* Chloride 121 H Carbon Dioxide 25 BUN 21 H Creatinine 0.80 Calcium 8.7 Liver Function 09/22/23 Range/Units 06:07 Albumin 3.2 L (3.5-5.0) g/dL Microbiology Microbiology Results: Microbiology 09/14/23 10:56 Blood - Venous Blood Culture - Final No growth after 5 days. 09/14/23 10:40 Blood - Venous Blood Culture - Final No growth after 5 days. Procedures Arterial Line Size (Gauge): 20 Assessment and Plan (1) Type 2 diabetes mellitus: Status: Acute (2) Necrotizing soft tissue infection: Status: Acute (3) Soft tissue infection: Status: Acute (4) Morbid obesity: Status: Acute (5) Cuate gangrene: Status: Acute Plan He still has daily fevers with no other cause seen. Possible gram positive and Vancomycin may not have optimal penetration. There is possible rapid growth of bacteria and toxin production. Would switch to IV Daptomycin 6 mg/kg daily and Clindamycin 900 mg IV tid. Would stop Vancomycin and switch piperacillin/tazobactam to Merem Check HIV Make sure no DVT or PE Surgery continue to follow.
[2023-09-22] MEDS: DAPTOmycin 850 MG in 0.9 % Sodium Chloride 50 ML 134 MG IV (19:42)
[2023-09-22 20:20] LABS: Glucose, Whole Blood 374 mg/dL (60-115)
[2023-09-22] MEDS: Clindamycin Phosphate/D5W 900 MG/50 ML PIGGYBACK 50 MG IV (20:28)
--- NOTE | 2023-09-22 23:26 | PM.PNGS ---
Subjective Subjective Date of Service: 09/22/23 Interval history: pt doing ok - having some pain Physical Exam Vital Signs: Vital Signs: Last Vital Signs Temp 97.9 F 09/22/23 18:58 Pulse 105 H 09/22/23 18:58 Resp 20 09/22/23 18:58 BP 137/65 09/22/23 18:58 Pulse Ox 89 L 09/22/23 18:58 O2 Del Method Nasal Cannula 09/22/23 18:58 O2 Flow Rate 3 09/22/23 18:58 FiO2 30 09/20/23 11:33 BMI result Body Mass Index 50.2 Skin: Other: large open wound into muscle and soft tissue - generally a lot of healthy red tissue but also with some necrotic tissue. Objective Data Active Medications Acetaminophen (Acetaminophen Oral Liquid 650 Mg/20.3 Ml Solution) 650 mg PO Q4H PRN PRN Reason: Fever Last Admin: 09/21/23 14:05 Dose: 650 mg Documented By: CECIL Cyanocobalamin (Cyanocobalamin (Vitamin B-12) 1,000 Mcg Tablet) 1,000 mcg PO DAILY [facility] Enoxaparin Sodium (Enoxaparin Sodium 40 Mg/0.4 Ml Syringe) 40 mg SUBCUT Q24H [facility] Last Admin: 09/22/23 11:20 Dose: 40 mg Documented By: MIKE Glucose (Glucose Gel 15 Gm Gel..Gram.) 15 gm PO Q15M PRN; Protocol PRN Reason: per Hypoglycemia Standing Ord. Hydromorphone HCl (Hydromorphone Hcl 0.5 Mg/0.5 Ml Syringe) 0.5 mg IVPUSH Q3H PRN; Protocol PRN Reason: moderate pain Last Admin: 09/22/23 18:10 Dose: 0.5 mg Documented By: MIKE Dextrose (D10) 250 mls @ 750 mls/hr IV Q15M PRN PRN Reason: per Hypoglycemia Standing Ord. Dextrose (D5w) 1,000 mls @ 150 mls/hr IVCONT .Q6H40M [facility] Last Infusion: 09/22/23 22:17 Dose: 150 mls/hr Documented By: SONDRA Meropenem 1 gm/ Sodium (Chloride) 100 mls @ 200 mls/hr IV Q8H [facility] Last Infusion: 09/22/23 19:01 Dose: Infused Documented By: MIKE Daptomycin 850 mg/ Sodium (Chloride) 67 mls @ 134 mls/hr IV Q24H [facility] Last Infusion: 09/22/23 20:33 Dose: Infused Documented By: SONDRA Clindamycin Phosphate (Cleocin) 900 mg in 50 mls @ 50 mls/hr IV Q8H [facility] Last Infusion: 09/22/23 21:30 Dose: Infused Documented By: SONDRA Insulin Glargine (Insulin Glargine,Hum.Rec.Anlog 100 Unit/Ml 10 Ml Vial) 10 unit SUBCUT BID [facility] Last Admin: 09/22/23 20:36 Dose: 10 unit Documented By: SONDRA Insulin Human Lispro (Insulin Lispro 100 Unit/Ml 3 Ml Vial) 0 unit SUBCUT QIDACHS [facility]; Protocol Last Admin: 09/22/23 20:36 Dose: 10 unit Documented By: SONDRA Naloxone HCl (Naloxone Hcl 0.4 Mg/Ml Vial) 0.2 mg IVPUSH Q2M PRN PRN Reason: Excessive sedation or RR < 8 Sertraline HCl (Sertraline Hcl 100 Mg Tablet) 100 mg PO DAILY [facility] Sodium Chloride (0.9 % Sodium Chloride Flush 3 Ml Syringe) 3 ml IVFLUSH QSHIFT [facility] Last Admin: 09/22/23 20:37 Dose: 3 ml Documented By: SONDRA Sodium Hypochlorite (Sodium Hypochlorite 0.125% 473 Ml Solution) 1 appl TOPICAL DAILY [facility] Last Admin: 09/22/23 08:35 Dose: 1 appl Documented By: MIKE Labs 09/22/23 06:07 09/22/23 06:07 Labs: Laboratory Results - last 24 hr 09/22/23 09/22/23 09/22/23 06:07 06:10 07:17 MCV 92.6 MCH 29.6 MCHC 31.9 RDW 15.2 Plt Count 441 H MPV 9.6 Immature Gran % (Auto) 2.5 H Neut % (Auto) 81.7 H Lymph % (Auto) 10.1 L Gentry % (Auto) 5.1 Eos % (Auto) 0.3 Baso % (Auto) 0.3 Lymph # (Auto) 2.3 Gentry # (Auto) 1.2 Eos # (Auto) 0.1 Baso # (Auto) 0.1 Abs Immat Gran (auto) 0.56 H Absolute Neuts (auto) 18.5 H Absolute Nucleated RBC 0.130 H Nucleated RBC % (auto) 0.6 H VBG pH 7.59 H VBG pCO2 30 VBG pO2 93 VBG HCO3 29 H VBG O2 Saturation Not Reportable VBG Base Excess 7.6 Anion Gap 18 Estim Creat Clear Calc 152.8 Estimated GFR > 60 POC Glucose 272 H Random Glucose 305 H Calcium 8.7 Phosphorus 2.4 L Magnesium 2.5 Albumin 3.2 L Random Vancomycin 09/22/23 09/22/23 09/22/23 08:32 11:30 16:08 MCV MCH MCHC RDW Plt Count MPV Immature Gran % (Auto) Neut % (Auto) Lymph % (Auto) Gentry % (Auto) Eos % (Auto) Baso % (Auto) Lymph # (Auto) Gentry # (Auto) Eos # (Auto) Baso # (Auto) Abs Immat Gran (auto) Absolute Neuts (auto) Absolute Nucleated RBC Nucleated RBC % (auto) VBG pH VBG pCO2 VBG pO2 VBG HCO3 VBG O2 Saturation VBG Base Excess Anion Gap Estim Creat Clear Calc Estimated GFR POC Glucose 320 H 330 H Random Glucose Calcium Phosphorus Magnesium Albumin Random Vancomycin 15.2 09/22/23 20:16 MCV MCH MCHC RDW Plt Count MPV Immature Gran % (Auto) Neut % (Auto) Lymph % (Auto) Gentry % (Auto) Eos % (Auto) Baso % (Auto) Lymph # (Auto) Gentry # (Auto) Eos # (Auto) Baso # (Auto) Abs Immat Gran (auto) Absolute Neuts (auto) Absolute Nucleated RBC Nucleated RBC % (auto) VBG pH VBG pCO2 VBG pO2 VBG HCO3 VBG O2 Saturation VBG Base Excess Anion Gap Estim Creat Clear Calc Estimated GFR POC Glucose 374 H* Random Glucose Calcium Phosphorus Magnesium Albumin Random Vancomycin Procedures Date of Service Date of Service: 09/22/23 Arterial Line Size (Gauge): 20 Progress Note: A&P Assessment and plan (1) Necrotizing soft tissue infection: Status: Acute Plan s/p debridements of necrotizing soft tissue of right posterior leg/buttock area - looks ok- cont with daily Dakins and premedicate med team to work on med issues, electrolytes etc need to maintain good nutrition for healing Time Spent With Patient Time: Total time managing care of this patient today ____ minutes. Quality Stroke Does the patient have a stroke diagnosis?: No VTE Prior VTE?: No VTE Risk Level:: Medical - moderate - high VTE Device Contraindication: N/A - Device Ordered VTE Drug Contraindication: Treatment Not Tolerated
--- NOTE | 2023-09-23 00:53 | PC.RT ---
Pt refused CPAP
[2023-09-23] MEDS: Clindamycin Phosphate/D5W 900 MG/50 ML PIGGYBACK 50 MG IV ×3 (03:22→21:37)
[2023-09-23 04:00] VITALS: BP 131/61; PULSE 99; RESP 20; TEMP 37.5; O2SAT 92
[2023-09-23] MEDS: Dextrose 5 % 1,000 ML 150 ML IVCONT ×2 (05:40→12:16)
[2023-09-23 06:22] LABS: Hematocrit 25.3 % (42.0-52.0); Hemoglobin 7.9 g/dl (14.0-18.0); Mean Corpuscular HGB Conc 31.2 g/dl (31.0-36.0); Mean Corpuscular Hemoglobin 29.3 pg (27.0-33.0); Mean Corpuscular Volume 93.7 fL (80.0-98.0); Platelet Count 494 X10*3/uL (160-400); Red Cell Distribution Width 15.2 % (11.0-16.0)
[2023-09-23 06:24] LABS: NRBC Pct Auto 1.4 /100WBC (0.0-0.2)
[2023-09-23 06:52] LABS: Anion Gap 14 (12-20); Blood Urea Nitrogen 22 mg/dL (9-16); Calcium 8.4 mg/dL (8.4-10.2); Carbon Dioxide 29 mmol/L (22-29); Chloride 122 mmol/L (96-108); Creatinine Clr Calc Pharmacy 147.3; Estimated Glomerular Filt Rate > 60; Magnesium 2.3 mg/dL (1.6-2.6)
[2023-09-23 07:10] LABS: Glucose Fasting 358 mg/dL (60-99); Sodium 162 mmol/L (135-145)
[2023-09-23 07:28] VITALS: BP 140/63; PULSE 101; RESP 17; TEMP 36.3; O2SAT 96
[2023-09-23] MEDS: Insulin Lispro 100 UNIT/ML 3 ML VIAL SUBCUT ×4 (08:18→20:35)
[2023-09-23] MEDS: Insulin Glargine,Hum.rec.anlog 100 UNIT/ML 10 ML VIAL 15 UNIT SUBCUT ×2 (08:20→20:35)
[2023-09-23] MEDS: Cyanocobalamin (Vitamin B-12) 1,000 MCG TABLET 1000 MCG PO (08:20)
[2023-09-23] MEDS: Sertraline HCL 100 MG TABLET PO (08:20)
[2023-09-23] MEDS: Potassium Chloride Packet 20 MEQ PACKET 40 MEQ PO (08:20)
[2023-09-23 08:25] LABS: Glucose, Whole Blood 314 mg/dL (60-115)
[2023-09-23 11:36] VITALS: BP 140/63; PULSE 107; RESP 19; TEMP 36.6; O2SAT 95
[2023-09-23] MEDS: Enoxaparin Sodium 40 MG/0.4 ML SYRINGE SUBCUT (11:49)
[2023-09-23 11:51] LABS: Glucose, Whole Blood 364 mg/dL (60-115)
[2023-09-23] MEDS: HYDROmorphone HCl 1 MG/ML SYRINGE IVPUSH (13:48)
[2023-09-23] MEDS: Dextrose 5 % 1,000 ML 200 ML IVCONT ×2 (14:21→20:35)
--- NOTE | 2023-09-23 14:29 | P.PNIM_ITS ---
Subjective Subjective Date of Service: 09/23/23 Interval History: Being followed for jory's gangrene Offers no acute complaints denies pain, tolerating diet, poor fluid intake, no nausea, no vomiting denies fever, no other acute events overnight. Review of Systems All other system reviewed and are negative Physical Exam 2 Vital Signs: Vital Signs: Last Vital Signs Temp 97.8 F 09/23/23 11:36 Pulse 107 H 09/23/23 11:36 Resp 19 09/23/23 11:36 BP 140/63 H 09/23/23 11:36 Pulse Ox 95 09/23/23 11:36 O2 Del Method Nasal Cannula 09/23/23 11:36 O2 Flow Rate 5 09/23/23 11:36 FiO2 30 09/20/23 11:33 BMI result Body Mass Index 50.2 Const: Other: General awake alert, in no acute distress. Neck no JVD. CVS regular rate rhythm, Respiratory lungs clear to auscultation, no respiratory distress, no wheeze, no rhonchi. Gastrointestinal abdomen soft, non tender, bowel sounds audible. large open wound on proximal posterior thigh and buttock, with some draining sinuses on margins on skin at the groin, now with healthy appearing tissue, no ongoing gangrene/necrosis Extremities no edema. Neuro awake alert x3 Objective Data Active Medications Acetaminophen (Acetaminophen Oral Liquid 650 Mg/20.3 Ml Solution) 650 mg PO Q4H PRN PRN Reason: Fever Last Admin: 09/21/23 14:05 Dose: 650 mg Documented By: CECIL Cyanocobalamin (Cyanocobalamin (Vitamin B-12) 1,000 Mcg Tablet) 1,000 mcg PO DAILY [facility] Last Admin: 09/23/23 08:20 Dose: 1,000 mcg Documented By: BC Enoxaparin Sodium (Enoxaparin Sodium 40 Mg/0.4 Ml Syringe) 40 mg SUBCUT Q24H [facility] Last Admin: 09/23/23 11:49 Dose: 40 mg Documented By: BC Glucose (Glucose Gel 15 Gm Gel..Gram.) 15 gm PO Q15M PRN; Protocol PRN Reason: per Hypoglycemia Standing Ord. Hydromorphone HCl (Hydromorphone Hcl 0.5 Mg/0.5 Ml Syringe) 0.5 mg IVPUSH Q3H PRN; Protocol PRN Reason: moderate pain Last Admin: 09/22/23 18:10 Dose: 0.5 mg Documented By: MIKE Dextrose (D10) 250 mls @ 750 mls/hr IV Q15M PRN PRN Reason: per Hypoglycemia Standing Ord. Meropenem 1 gm/ Sodium (Chloride) 100 mls @ 200 mls/hr IV Q8H [facility] Last Infusion: 09/23/23 12:21 Dose: Infused Documented By: BC Daptomycin 850 mg/ Sodium (Chloride) 67 mls @ 134 mls/hr IV Q24H [facility] Last Infusion: 09/22/23 20:33 Dose: Infused Documented By: SONDRA Clindamycin Phosphate (Cleocin) 900 mg in 50 mls @ 50 mls/hr IV Q8H [facility] Last Infusion: 09/23/23 13:33 Dose: Infused Documented By: BC Dextrose (D5w) 1,000 mls @ 200 mls/hr IVCONT .Q5H [facility] Last Admin: 09/23/23 14:21 Dose: 200 mls/hr Documented By: BC Insulin Glargine (Insulin Glargine,Hum.Rec.Anlog 100 Unit/Ml 10 Ml Vial) 15 unit SUBCUT BID [facility] Last Admin: 09/23/23 08:20 Dose: 15 unit Documented By: BC Insulin Human Lispro (Insulin Lispro 100 Unit/Ml 3 Ml Vial) 0 unit SUBCUT QIDACHS [facility]; Protocol Last Admin: 09/23/23 12:22 Dose: 14 unit Documented By: BC Naloxone HCl (Naloxone Hcl 0.4 Mg/Ml Vial) 0.2 mg IVPUSH Q2M PRN PRN Reason: Excessive sedation or RR < 8 Sertraline HCl (Sertraline Hcl 100 Mg Tablet) 100 mg PO DAILY [facility] Last Admin: 09/23/23 08:20 Dose: 100 mg Documented By: BC Sodium Chloride (0.9 % Sodium Chloride Flush 3 Ml Syringe) 3 ml IVFLUSH QSHIFT [facility] Last Admin: 09/23/23 08:21 Dose: Not Given Documented By: BC Non-Admin Reason: IV Running Sodium Hypochlorite (Sodium Hypochlorite 0.125% 473 Ml Solution) 1 appl TOPICAL DAILY [facility] Last Admin: 09/23/23 10:50 Dose: Not Given Documented By: BC Non-Admin Reason: be completed by surgery team Labs 09/23/23 06:06 09/23/23 06:06 Labs: Laboratory Results - last 24 hr 09/22/23 09/22/23 09/23/23 16:08 20:16 06:06 MCV 93.7 MCH 29.3 MCHC 31.2 RDW 15.2 Plt Count 494 H MPV 10.0 Absolute Nucleated RBC 0.260 H Nucleated RBC % (auto) 1.4 H Anion Gap 14 Estim Creat Clear Calc 147.3 Estimated GFR > 60 POC Glucose 330 H 374 H* Fasting Glucose 358 H* Calcium 8.4 Magnesium 2.3 09/23/23 09/23/23 08:15 11:47 MCV MCH MCHC RDW Plt Count MPV Absolute Nucleated RBC Nucleated RBC % (auto) Anion Gap Estim Creat Clear Calc Estimated GFR POC Glucose 314 H 364 H* Fasting Glucose Calcium Magnesium Assessment and Plan (1) Necrotizing soft tissue infection: Status: Acute Plan 48M PMH DM, morbid obesity, htn, mood disorder, KIM, presented 09/14/23 with perneal erythema, pain, 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 admitted to ICU, treated with vanco, zosyn, clinda, pressor support, insulin. underwent debridement 09/14/23 and 09/17/23. patient eventually extubated, weaned off pressors. downgraded 09/21/23. course complicated by acute blood loss and inflammatory anemia requiring transfusions, hypernatremia. 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 and IV meropenem on 09/21 s/p iv vanc, and zosyn, cultures negative s/p debridements, gen surg following, continue local care No fevers in last 24 hours, WBC trending down, hold further workup for recurrent fever DM with DKa dka resolved, elevated blood sugars will increase dose of basal insulin, continue insulin sliding scale dose adjusted. acute hypoxic respiratory failure due to sepsis extubated successfully, continue to wean o2 mohini resolved acute hypokalemia replace and montior acute hypernatremia Sodium 160 today, 1300 L negative, nephrology consult obtained will increase D5 to 200 mL/hour , push by mouth fluid, follow BMP icu/critical illness myopathy continue pureed solids, nectar thick liquids, acid tester following PT eval acute blood loss and inflammatory anemia monitor cbc mood disorder on sertraline restarted at half dose htn Follow BP resume lisinopril morbid obesity weight loss recommended KIM cpap at night dvt prophylaxis - lovenox full code reason for continued hospitalization:severe electrolyte abnormalities. Quality Stroke Does the patient have a stroke diagnosis?: No VTE Prior VTE?: No VTE Risk Level:: Medical - moderate - high VTE Device Contraindication: N/A - Device Ordered VTE Drug Contraindication: Treatment Not Tolerated
[2023-09-23 15:36] VITALS: BP 133/63; PULSE 94; RESP 18; TEMP 37.3; O2SAT 96
[2023-09-23 16:26] LABS: Glucose, Whole Blood 337 mg/dL (60-115)
[2023-09-23] MEDS: Potassium Chloride Packet 20 MEQ PACKET PO (16:37)
[2023-09-23] MEDS: 0.9 % Sodium Chloride Flush 3 ML SYRINGE IVFLUSH (16:39)
--- NOTE | 2023-09-23 17:05 | PM.PNGS ---
Subjective Subjective Date of Service: 09/23/23 Interval history: Patient doing okay feeling very weak and tired Physical Exam Vital Signs: Vital Signs: Last Vital Signs Temp 99.1 F 09/23/23 15:36 Pulse 94 09/23/23 15:36 Resp 18 09/23/23 15:36 BP 133/63 09/23/23 15:36 Pulse Ox 96 09/23/23 15:36 O2 Del Method Nasal Cannula 09/23/23 15:36 O2 Flow Rate 4 09/23/23 15:36 FiO2 30 09/20/23 11:33 BMI result Body Mass Index 50.2 Const: General: cooperative, healthy appearing and comfortable GI: Other: Patient's Skin: Other: Posterior right thigh buttock area wound looks good there is less necrotic tissue at the inferior aspect but still some strands of little bit of necrotic tissue superiorly. Most of the fat looks healthy and pink yellow. Objective Data Active Medications Acetaminophen (Acetaminophen Oral Liquid 650 Mg/20.3 Ml Solution) 650 mg PO Q4H PRN PRN Reason: Fever Last Admin: 09/21/23 14:05 Dose: 650 mg Documented By: CECIL Cyanocobalamin (Cyanocobalamin (Vitamin B-12) 1,000 Mcg Tablet) 1,000 mcg PO DAILY [facility] Last Admin: 09/23/23 08:20 Dose: 1,000 mcg Documented By: BC Enoxaparin Sodium (Enoxaparin Sodium 40 Mg/0.4 Ml Syringe) 40 mg SUBCUT Q24H [facility] Last Admin: 09/23/23 11:49 Dose: 40 mg Documented By: BC Glucose (Glucose Gel 15 Gm Gel..Gram.) 15 gm PO Q15M PRN; Protocol PRN Reason: per Hypoglycemia Standing Ord. Hydromorphone HCl (Hydromorphone Hcl 0.5 Mg/0.5 Ml Syringe) 0.5 mg IVPUSH Q3H PRN; Protocol PRN Reason: moderate pain Last Admin: 09/22/23 18:10 Dose: 0.5 mg Documented By: MIKE Dextrose (D10) 250 mls @ 750 mls/hr IV Q15M PRN PRN Reason: per Hypoglycemia Standing Ord. Meropenem 1 gm/ Sodium (Chloride) 100 mls @ 200 mls/hr IV Q8H [facility] Last Infusion: 09/23/23 12:21 Dose: Infused Documented By: BC Daptomycin 850 mg/ Sodium (Chloride) 67 mls @ 134 mls/hr IV Q24H [facility] Last Infusion: 09/22/23 20:33 Dose: Infused Documented By: SONDRA Clindamycin Phosphate (Cleocin) 900 mg in 50 mls @ 50 mls/hr IV Q8H [facility] Last Infusion: 09/23/23 13:33 Dose: Infused Documented By: BC Dextrose (D5w) 1,000 mls @ 200 mls/hr IVCONT .Q5H [facility] Last Admin: 09/23/23 14:21 Dose: 200 mls/hr Documented By: BC Insulin Glargine (Insulin Glargine,Hum.Rec.Anlog 100 Unit/Ml 10 Ml Vial) 15 unit SUBCUT BID [facility] Last Admin: 09/23/23 08:20 Dose: 15 unit Documented By: BC Insulin Human Lispro (Insulin Lispro 100 Unit/Ml 3 Ml Vial) 0 unit SUBCUT QIDACHS [facility]; Protocol Last Admin: 09/23/23 16:40 Dose: 10 unit Documented By: GURPREET Naloxone HCl (Naloxone Hcl 0.4 Mg/Ml Vial) 0.2 mg IVPUSH Q2M PRN PRN Reason: Excessive sedation or RR < 8 Sertraline HCl (Sertraline Hcl 100 Mg Tablet) 100 mg PO DAILY [facility] Last Admin: 09/23/23 08:20 Dose: 100 mg Documented By: BC Sodium Chloride (0.9 % Sodium Chloride Flush 3 Ml Syringe) 3 ml IVFLUSH QSHIFT [facility] Last Admin: 09/23/23 16:39 Dose: 3 ml Documented By: GURPREET Sodium Hypochlorite (Sodium Hypochlorite 0.125% 473 Ml Solution) 1 appl TOPICAL DAILY [facility] Last Admin: 09/23/23 10:50 Dose: Not Given Documented By: BC Non-Admin Reason: be completed by surgery team Labs 09/23/23 06:06 09/23/23 06:06 Labs: Laboratory Results - last 24 hr 09/22/23 09/23/23 09/23/23 20:16 06:06 08:15 MCV 93.7 MCH 29.3 MCHC 31.2 RDW 15.2 Plt Count 494 H MPV 10.0 Absolute Nucleated RBC 0.260 H Nucleated RBC % (auto) 1.4 H Anion Gap 14 Estim Creat Clear Calc 147.3 Estimated GFR > 60 POC Glucose 374 H* 314 H Fasting Glucose 358 H* Calcium 8.4 Magnesium 2.3 09/23/23 09/23/23 11:47 16:21 MCV MCH MCHC RDW Plt Count MPV Absolute Nucleated RBC Nucleated RBC % (auto) Anion Gap Estim Creat Clear Calc Estimated GFR POC Glucose 364 H* 337 H Fasting Glucose Calcium Magnesium Procedures Date of Service Date of Service: 09/23/23 Arterial Line Size (Gauge): 20 Progress Note: A&P Assessment and plan (1) Necrotizing soft tissue infection: Status: Acute Plan 48-year-old male with necrotizing soft tissue infection of right posterior thigh buttock area doing well. Hemodynamics have been good these are all being followed by the medical team. Dressing changes were done at bedside with pre medication with 1 mg of Dilaudid. Generally tolerates it fairly well. Plan to continue these dressings with Dakin solution. May need little bit of bedside debridement of the necrotic tissue over the next few days. Eventually would be great to be able to get a wound VAC in place. Time Spent With Patient Time: Total time managing care of this patient today ____ minutes. Quality Stroke Does the patient have a stroke diagnosis?: No VTE Prior VTE?: No VTE Risk Level:: Medical - moderate - high VTE Device Contraindication: N/A - Device Ordered VTE Drug Contraindication: Treatment Not Tolerated
[2023-09-23 20:00] VITALS: BP 117/54; PULSE 81; RESP 20; TEMP 37.5; O2SAT 94
[2023-09-23 20:26] LABS: Glucose, Whole Blood 301 mg/dL (60-115)
[2023-09-23] MEDS: DAPTOmycin 850 MG in 0.9 % Sodium Chloride 50 ML 134 MG IV (20:35)
[2023-09-23 21:33] LABS: Vancomycin Random 5.2 mcg/mL (15-20)
[2023-09-24] VITALS: BP 129/60; PULSE 81; RESP 18; TEMP 36.9; O2SAT 96
[2023-09-24] MEDS: Clindamycin Phosphate/D5W 900 MG/50 ML PIGGYBACK 50 MG IV ×3 (03:02→19:43)
[2023-09-24 03:57] VITALS: BP 120/56; PULSE 74; RESP 20; TEMP 36.4; O2SAT 97
[2023-09-24] MEDS: Dextrose 5 % 1,000 ML 200 ML IVCONT ×2 (04:39→09:31)
[2023-09-24 06:34] LABS: Hematocrit 26.7 % (42.0-52.0); Mean Corpuscular Volume 96.7 fL (80.0-98.0); Mean Platelet Volume 11.7 fL (9.4-12.4); Platelet Count 308 X10*3/uL (160-400); Red Blood Count 2.76 X10*6/uL (4.60-5.80); Red Cell Distribution Width 15.7 % (11.0-16.0); White Blood Count 14.6 X10*3/uL (4.8-10.8)
[2023-09-24 06:35] LABS: NRBC Pct Auto 1.1 /100WBC (0.0-0.2)
[2023-09-24 07:12] LABS: Glucose, Whole Blood 315 mg/dL (60-115)
[2023-09-24 07:25] LABS: Anion Gap 16 (12-20); Blood Urea Nitrogen 20 mg/dL (9-16); Calcium 8.3 mg/dL (8.4-10.2); Carbon Dioxide 24 mmol/L (22-29); Chloride 113 mmol/L (96-108); Creatinine Clr Calc Pharmacy 158.8; Estimated Glomerular Filt Rate > 60; Glucose Random 320 mg/dL (60-115); Potassium 3.6 mmol/L (3.3-5.1); Sodium 149 mmol/L (135-145)
[2023-09-24 08:00] VITALS: BP 134/60; PULSE 70; RESP 18; TEMP 36.7; O2SAT 97
[2023-09-24] MEDS: HYDROmorphone HCl 0.5 MG/0.5 ML SYRINGE IVPUSH ×2 (08:05→11:59)
[2023-09-24] MEDS: 0.9 % Sodium Chloride Flush 3 ML SYRINGE IVFLUSH ×3 (08:06→22:30)
--- NOTE | 2023-09-24 08:52 | P.PNGS_ITS ---
Subjective Subjective Date of Service: 09/24/23 Interval history: No events reported over the weekend Patient has been in telemetry Alert denies new complaints Physical Exam 2 Vital Signs: Vital Signs: Last Vital Signs Temp 98.1 F 09/24/23 08:00 Pulse 70 09/24/23 08:00 Resp 18 09/24/23 08:00 BP 134/60 09/24/23 08:00 Pulse Ox 97 09/24/23 08:00 O2 Del Method Nasal Cannula 09/24/23 08:00 O2 Flow Rate 4.5 09/24/23 08:00 FiO2 30 09/20/23 11:33 BMI result Body Mass Index 50.2 Const: Other: Appears weak General: comfortable and no acute distress Resp: Other: On O2 by nasal cannula Cardio: Rate: regular rate GI: Other: Morbidly obese Palpation (GI): Soft to palpation Back/Spine/Pelvis: Other: Large open wound on the lower buttock, proximal thigh, clean, small patches of nonviable superficial tissue on the subcutaneous layer, no pus, no ongoing gangrene Objective Data Active Medications Acetaminophen (Acetaminophen Oral Liquid 650 Mg/20.3 Ml Solution) 650 mg PO Q4H PRN PRN Reason: Fever Last Admin: 09/21/23 14:05 Dose: 650 mg Documented By: CECIL Cyanocobalamin (Cyanocobalamin (Vitamin B-12) 1,000 Mcg Tablet) 1,000 mcg PO DAILY [facility] Last Admin: 09/23/23 08:20 Dose: 1,000 mcg Documented By: BC Enoxaparin Sodium (Enoxaparin Sodium 40 Mg/0.4 Ml Syringe) 40 mg SUBCUT Q24H [facility] Last Admin: 09/23/23 11:49 Dose: 40 mg Documented By: BC Glucose (Glucose Gel 15 Gm Gel..Gram.) 15 gm PO Q15M PRN; Protocol PRN Reason: per Hypoglycemia Standing Ord. Hydromorphone HCl (Hydromorphone Hcl 0.5 Mg/0.5 Ml Syringe) 0.5 mg IVPUSH Q3H PRN; Protocol PRN Reason: moderate pain Last Admin: 09/24/23 08:05 Dose: 0.5 mg Documented By: RENATO Dextrose (D10) 250 mls @ 750 mls/hr IV Q15M PRN PRN Reason: per Hypoglycemia Standing Ord. Meropenem 1 gm/ Sodium (Chloride) 100 mls @ 200 mls/hr IV Q8H [facility] Last Infusion: 09/24/23 02:18 Dose: Infused Documented By: PÉREZ Daptomycin 850 mg/ Sodium (Chloride) 67 mls @ 134 mls/hr IV Q24H [facility] Last Infusion: 09/23/23 21:28 Dose: Infused Documented By: PÉREZ Clindamycin Phosphate (Cleocin) 900 mg in 50 mls @ 50 mls/hr IV Q8H [facility] Last Infusion: 09/24/23 04:21 Dose: Infused Documented By: PÉREZ Dextrose (D5w) 1,000 mls @ 100 mls/hr IVCONT .Q10H [facility] Last Admin: 09/24/23 04:55 Dose: Not Given Documented By: PÉREZ Non-Admin Reason: IV Running Insulin Glargine (Insulin Glargine,Hum.Rec.Anlog 100 Unit/Ml 10 Ml Vial) 15 unit SUBCUT BID [facility] Last Admin: 09/23/23 20:35 Dose: 15 unit Documented By: PÉREZ Insulin Human Lispro (Insulin Lispro 100 Unit/Ml 3 Ml Vial) 0 unit SUBCUT QIDACHS [facility]; Protocol Last Admin: 09/23/23 20:35 Dose: 10 unit Documented By: PÉREZ Naloxone HCl (Naloxone Hcl 0.4 Mg/Ml Vial) 0.2 mg IVPUSH Q2M PRN PRN Reason: Excessive sedation or RR < 8 Sertraline HCl (Sertraline Hcl 100 Mg Tablet) 100 mg PO DAILY [facility] Last Admin: 09/23/23 08:20 Dose: 100 mg Documented By: BC Sodium Chloride (0.9 % Sodium Chloride Flush 3 Ml Syringe) 3 ml IVFLUSH QSHIFT [facility] Last Admin: 09/24/23 08:06 Dose: 3 ml Documented By: RENATO Sodium Hypochlorite (Sodium Hypochlorite 0.125% 473 Ml Solution) 1 appl TOPICAL DAILY [facility] Last Admin: 09/23/23 10:50 Dose: Not Given Documented By: BC Non-Admin Reason: be completed by surgery team Sodium Hypochlorite (Sodium Hypochlorite 0.125% 473 Ml Solution) 1 appl TOPICAL DAILY [facility] Labs 09/24/23 05:39 09/24/23 05:39 Labs: Laboratory Results - last 24 hr 09/23/23 09/23/23 09/23/23 11:47 16:21 20:22 MCV MCH MCHC RDW Plt Count MPV Absolute Nucleated RBC Nucleated RBC % (auto) Anion Gap Estim Creat Clear Calc Estimated GFR POC Glucose 364 H* 337 H 301 H Random Glucose Calcium Random Vancomycin 09/23/23 09/24/23 09/24/23 21:15 05:39 07:07 MCV 96.7 MCH 29.0 MCHC 30.0 L RDW 15.7 Plt Count 308 D MPV 11.7 Absolute Nucleated RBC 0.160 H Nucleated RBC % (auto) 1.1 H Anion Gap 16 Estim Creat Clear Calc 158.8 Estimated GFR > 60 POC Glucose 315 H Random Glucose 320 H Calcium 8.3 L Random Vancomycin 5.2 L Procedures Date of Service Date of Service: 09/24/23 Arterial Line Size (Gauge): 20 Progress Note: A&P Assessment and plan (1) Necrotizing soft tissue infection: Status: Acute Assessment and Plan: Dressings changed at bedside he had the wound care nurse Mai Wet-to-dry packing with Kerlix gauze applied We may be able to start using a wound VAC We will re-examine tomorrow He he is doing much better overall Wound care, pain management Blood sugar control Time Spent With Patient Time: Total time managing care of this patient today ____ minutes. Quality Stroke Does the patient have a stroke diagnosis?: No VTE Prior VTE?: No VTE Risk Level:: Medical - moderate - high VTE Device Contraindication: N/A - Device Ordered VTE Drug Contraindication: Treatment Not Tolerated
[2023-09-24] MEDS: Insulin Lispro 100 UNIT/ML 3 ML VIAL SUBCUT ×4 (09:00→22:24)
[2023-09-24] MEDS: Insulin Glargine,Hum.rec.anlog 100 UNIT/ML 10 ML VIAL 15 UNIT SUBCUT ×2 (09:01→22:24)
[2023-09-24] MEDS: Cyanocobalamin (Vitamin B-12) 1,000 MCG TABLET 1000 MCG PO (09:01)
[2023-09-24] MEDS: Sertraline HCL 100 MG TABLET PO (09:01)
--- NOTE | 2023-09-24 10:21 | MHC.CM.PN ---
Per ROUNDS discussion, Patient is not yet medically cleared for dc and may benefit from a PT Eval to assist with disposition. CM will follow.
--- NOTE | 2023-09-24 10:26 | MHC.CLN ---
F/U PT TRANSFERRED TO MEDICAL FLOOR PO INTAKE 25/50% DIET RX: 2200DM GRD M/S RECOMMEND ADDING HIGH PROTEIN NUTRITION SUPPLEMENT TO PROMOTE WOUND HEALING WILL START ENSURE MAX BID TO PROVIDE 300KCALS, 60G PROTEIN MONITOR PO INTAKE AND ENCOURAGE SUPPLEMENTS
--- NOTE | 2023-09-24 10:49 | P.CONNP_ITS ---
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 He was admitted to ICU, treated with vanco, zosyn, clinda, pressor support, insulin & underwent debridement 09/14/23 and 09/17/23. He eventually extubated, weaned off pressors and was transferred to the floor. Hospital course was complicated by acute blood loss and inflammatory anemia requiring transfusions as well as hypernatremia.Nephrology has been consulted to assist in his clinical management during his current hospital stay. Review of Systems Review of Systems Yes all other systems are reviewed and are negative PMFSH Past Medical History Medical History Necrotizing soft tissue infection Soft tissue infection Morbid obesity Back pain KIM (obstructive sleep apnea) Anxiety and depression Elevated WBCs Type 2 diabetes mellitus HTN (hypertension) Family History Family history: reviewed and not pertinent Surgical History Surgical History Hx of oral surgery Social History Social History Household Members: None Housing: Apartment Do you presently have visiting nurse or other home services: Yes ([employer] 4 times a week) Alcohol intake: never Patient Tobacco Use Status: Current everyday Tobacco user Tobacco use type: Cigarette Cigarettes Per Day: 2 Years Smoked: 25 Smoked in Last 30 Days: Yes e-Cigarette/Vaping Use: Never Used Patient Interested in Nicotine Replacement: No Use of substances other than those prescribed or required for medical reasons: No Substance Use Type: Marijuana Substance Use Frequency: Chronic Longstanding Currently Displaying Signs/Symptoms of Drug Intoxication Withdrawal: No Have you been hit, kicked, punched, or otherwise hurt by someone within the past year? If so, by whom?: No Do you feel safe in your current relationship?: No Current Relationship Is there a partner from a previous relationship who is making you feel unsafe now?: No Are you made to feel afraid or neglected: No Advance Directives: No Advance Directives Information Provided: Yes Advance Directives on File: Yes Advance Directives Date on File: 09/14/23 Do you have a plan to hurt others: No Plan Recently lost weight without trying: Unsure How much weight loss: Unsure Eating poorly because of decreased appetite: Yes Nutrition screen score: 5 Nutrition Risks: Dental problems service: No Meds Allergies Allergy/AdvReac Type Severity Reaction Status Date / Time No Known Allergies Allergy Verified 09/14/23 11:03 Active Medications: Current Medications Acetaminophen (Acetaminophen Oral Liquid 650 Mg/20.3 Ml Solution) 650 mg PO Q4H PRN PRN Reason: Fever Last Admin: 09/21/23 14:05 Dose: 650 mg Cyanocobalamin (Cyanocobalamin (Vitamin B-12) 1,000 Mcg Tablet) 1,000 mcg PO DAILY [facility] Last Admin: 09/24/23 09:01 Dose: 1,000 mcg Enoxaparin Sodium (Enoxaparin Sodium 40 Mg/0.4 Ml Syringe) 40 mg SUBCUT Q24H [facility] Last Admin: 09/23/23 11:49 Dose: 40 mg Glucose (Glucose Gel 15 Gm Gel..Gram.) 15 gm PO Q15M PRN; Protocol PRN Reason: per Hypoglycemia Standing Ord. Hydromorphone HCl (Hydromorphone Hcl 0.5 Mg/0.5 Ml Syringe) 0.5 mg IVPUSH Q3H PRN; Protocol PRN Reason: moderate pain Last Admin: 09/24/23 08:05 Dose: 0.5 mg Dextrose (D10) 250 mls @ 750 mls/hr IV Q15M PRN PRN Reason: per Hypoglycemia Standing Ord. Meropenem 1 gm/ Sodium (Chloride) 100 mls @ 200 mls/hr IV Q8H [facility] Last Infusion: 09/24/23 10:35 Dose: Infused Daptomycin 850 mg/ Sodium (Chloride) 67 mls @ 134 mls/hr IV Q24H [facility] Last Infusion: 09/23/23 21:28 Dose: Infused Clindamycin Phosphate (Cleocin) 900 mg in 50 mls @ 50 mls/hr IV Q8H [facility] Last Infusion: 09/24/23 04:21 Dose: Infused Insulin Glargine (Insulin Glargine,Hum.Rec.Anlog 100 Unit/Ml 10 Ml Vial) 15 unit SUBCUT BID [facility] Last Admin: 09/24/23 09:01 Dose: 15 unit Insulin Human Lispro (Insulin Lispro 100 Unit/Ml 3 Ml Vial) 0 unit SUBCUT QIDACHS [facility]; Protocol Last Admin: 09/24/23 09:00 Dose: 10 unit Naloxone HCl (Naloxone Hcl 0.4 Mg/Ml Vial) 0.2 mg IVPUSH Q2M PRN PRN Reason: Excessive sedation or RR < 8 Sertraline HCl (Sertraline Hcl 100 Mg Tablet) 100 mg PO DAILY [facility] Last Admin: 09/24/23 09:01 Dose: 100 mg Sodium Chloride (0.9 % Sodium Chloride Flush 3 Ml Syringe) 3 ml IVFLUSH QSHIFT [facility] Last Admin: 09/24/23 08:06 Dose: 3 ml Sodium Hypochlorite (Sodium Hypochlorite 0.125% 473 Ml Solution) 1 appl TOPICAL DAILY [facility] Last Admin: 09/24/23 10:35 Dose: Not Given Sodium Hypochlorite (Sodium Hypochlorite 0.125% 473 Ml Solution) 1 appl TOPICAL DAILY [facility] Last Admin: 09/24/23 10:35 Dose: Not Given Home Medications ?Medication ?Instructions ?Recorded ?Confirmed ?Last Taken ?Type cholecalciferol (vitamin D3) 50 1 cap PO DAILY 02/27/22 09/14/23 Unknown History mcg (2,000 unit) capsule (Vitamin D3) clonazepam 1 mg tablet 1 tab PO BID 02/27/22 09/14/23 Unknown History cyanocobalamin (vitamin B-12) 1 tab PO DAILY 02/27/22 09/14/23 Unknown History 1,000 mcg tablet dulaglutide 4.5 mg/0.5 mL 0.5 ml subcut QWEEK 02/27/22 02/27/22 Unknown History subcutaneous pen injector (Trulicity) empagliflozin 25 mg tablet 1 tab PO DAILY 02/27/22 09/15/23 Unknown History (Jardiance) gabapentin 300 mg capsule 1 cap PO BID 02/27/22 09/14/23 Unknown History lisinopril 20 mg tablet 1 tab PO DAILY 02/27/22 09/14/23 03/14/22 History mirtazapine 45 mg tablet 1 tab BEDTIME 02/27/22 09/14/23 Unknown History ropinirole 1 mg tablet 1 tab PO BEDTIME 02/27/22 09/14/23 Unknown History sertraline 100 mg tablet 2 tab PO DAILY 02/27/22 09/14/23 Unknown History tramadol 50 mg tablet 1 - 2 tab PO Q8H PRN Pain 02/27/22 09/14/23 Unknown History mometasone 200 mcg/actuation HFA 1 puff inhalation BID 09/14/23 09/14/23 Unknown History aerosol inhaler (Asmanex HFA) ziprasidone HCl 40 mg capsule 40 mg PO DAILY@1800 09/14/23 09/15/23 Unknown History Physical Exam Vital Signs: Last Vital Signs Temp 98.1 F 09/24/23 08:00 Pulse 70 09/24/23 08:00 Resp 18 09/24/23 08:00 BP 134/60 09/24/23 08:00 Pulse Ox 97 09/24/23 08:00 O2 Del Method Nasal Cannula 09/24/23 08:00 O2 Flow Rate 4.5 09/24/23 08:00 FiO2 30 09/20/23 11:33 BMI result Body Mass Index 50.2 Const General: no acute distress Orientation/consciousness: patient oriented x3 Eyes EOM: EOMs intact bilaterally Resp Auscultation: diminished lung sounds Cardio Rate: regular rate GI Palpation (GI): Soft to palpation Neuro General: patient oriented x3 Results Lab Results 09/24/23 05:39 09/24/23 05:39 Lab results: Chemistry 09/22/23 09/23/23 09/24/23 06:07 06:06 05:39 Sodium 161 H* 162 H* 149 H Potassium 2.9 L* 3.0 L 3.6 Carbon Dioxide BUN 21 H 22 H 20 H Creatinine 0.80 0.83 0.77 Calcium 8.7 8.4 8.3 L Phosphorus 2.4 L Hematology 09/22/23 09/23/23 09/24/23 06:07 06:06 05:39 WBC 22.6 H 18.0 H 14.6 H Hgb 8.4 L D 7.9 L 8.0 L Plt Count 441 H 494 H 308 D Assessment and Plan (1) Hypernatremia: Status: Acute Plan Had significant water deficit Treated with IV D5W & PO free water Serum sodium improved; D/C D5W Needs to keep up with PO free water C/W rest of current management Procedures Date of Service Date of Service: 09/24/23 Arterial Line Size (Gauge): 20
--- NOTE | 2023-09-24 10:57 | HO.WOUND ---
Wound Consult: Initial 48yr old?[place] [facility] [place] with Cuate's Gangrene s/p multiple debridements with Dr. Matthew from General Surgery - See progress notes and H&P for detailed history.? Wound consult placed for Left buttock wound and Right Thigh surgical site.? Patient agreeable to assessment and photo documentation.? Patient medicated by direct care nurse prior to dressing change - see MAR for details. Right Posterior and lateral Thigh Right Posterior and lateral Thigh Etiology: ??S/P Surgical debridement for Fourniers Gangrene Wound Bed: improving based on photo review - 60% pale pink tissue 40% yellow necrotic tissue (some is adipose tissue) Drainage / Odor: serosang drainage noted on dressing when removed - No odor noted Edges: ? irregular but well defined Stella wound: ?Intact - No erythema noted - No Induration, Fluctuance or Warmth noted Pain: pain reported when dressing change performed Goals of Treatment: ? Continue Dakins for continued debridement - Future candidate for wound vac placement - discussed with Dr. Matthew - will continue to assess wound bed for wound vac readiness. Recommendations: 1. Turn and Reposition every 2 hours and as needed for patient comfort.? Use pillows or wedges to support off loading positions. 2. Off Load all bony prominences with use of pillows and heel boots if needed.? Apply Preventative foams where needed. ? 3. Monitor for incontinence and moisture control, use barrier creams when needed for prevention and treatment. 4. Provide adequate and supplemental nutrition.? 5. Continue low air loss mattress. 6. When applicable maintain blood glucose levels per Providers order. 7. Left Buttock / Skin Fold - Cleanse with PH balanced wipes. Apply thin layer of Triad to wound bed - only pat and dab no scrub and rub when soiling occurs. Reapply thin layer PRN after each episode of incontinence. 8. Right Buttock / Thigh - Cleanse and irrigate with NS. Lightly pack wound bed and tunnels with Dakins Moist gauze roll. Cover with dry gauze pad followed by ABD pads. Change twice a day. Re-consult wound care Nurse for wound deterioration or wound changes.
--- NOTE | 2023-09-24 11:16 | P.PNIM_ITS ---
Subjective Subjective Date of Service: 09/24/23 Interval History: Offers no acute complaints, tolerating diet denies pain, tolerated dressing change at bedside today, diet upgraded to thin liquids and ground solids with one-to-one feed, no acute events overnight. Review of Systems All other system reviewed and are negative. After this Physical Exam 2 Vital Signs: Vital Signs: Last Vital Signs Temp 98.1 F 09/24/23 08:00 Pulse 70 09/24/23 08:00 Resp 18 09/24/23 08:00 BP 134/60 09/24/23 08:00 Pulse Ox 97 09/24/23 08:00 O2 Del Method Nasal Cannula 09/24/23 08:00 O2 Flow Rate 4.5 09/24/23 08:00 FiO2 30 09/20/23 11:33 BMI result Body Mass Index 50.2 Const: Other: General awake alert, in no acute distress. Neck no JVD. CVS regular rate rhythm, Respiratory lungs clear to auscultation, no respiratory distress, no wheeze, no rhonchi. Gastrointestinal abdomen soft, non tender, bowel sounds audible. Dressing to lower buttock, proximal thigh in place Extremities no edema. Neuro awake alert x3 Objective Data Active Medications Acetaminophen (Acetaminophen Oral Liquid 650 Mg/20.3 Ml Solution) 650 mg PO Q4H PRN PRN Reason: Fever Last Admin: 09/21/23 14:05 Dose: 650 mg Documented By: CECIL Cyanocobalamin (Cyanocobalamin (Vitamin B-12) 1,000 Mcg Tablet) 1,000 mcg PO DAILY [facility] Last Admin: 09/24/23 09:01 Dose: 1,000 mcg Documented By: RENATO Enoxaparin Sodium (Enoxaparin Sodium 40 Mg/0.4 Ml Syringe) 40 mg SUBCUT Q24H [facility] Last Admin: 09/23/23 11:49 Dose: 40 mg Documented By: BC Glucose (Glucose Gel 15 Gm Gel..Gram.) 15 gm PO Q15M PRN; Protocol PRN Reason: per Hypoglycemia Standing Ord. Hydromorphone HCl (Hydromorphone Hcl 0.5 Mg/0.5 Ml Syringe) 0.5 mg IVPUSH Q3H PRN; Protocol PRN Reason: moderate pain Last Admin: 09/24/23 08:05 Dose: 0.5 mg Documented By: RENATO Dextrose (D10) 250 mls @ 750 mls/hr IV Q15M PRN PRN Reason: per Hypoglycemia Standing Ord. Meropenem 1 gm/ Sodium (Chloride) 100 mls @ 200 mls/hr IV Q8H [facility] Last Infusion: 09/24/23 10:35 Dose: Infused Documented By: RENATO Daptomycin 850 mg/ Sodium (Chloride) 67 mls @ 134 mls/hr IV Q24H [facility] Last Infusion: 09/23/23 21:28 Dose: Infused Documented By: PÉREZ Clindamycin Phosphate (Cleocin) 900 mg in 50 mls @ 50 mls/hr IV Q8H [facility] Last Infusion: 09/24/23 04:21 Dose: Infused Documented By: PÉREZ Insulin Glargine (Insulin Glargine,Hum.Rec.Anlog 100 Unit/Ml 10 Ml Vial) 15 unit SUBCUT BID [facility] Last Admin: 09/24/23 09:01 Dose: 15 unit Documented By: RENATO Insulin Human Lispro (Insulin Lispro 100 Unit/Ml 3 Ml Vial) 0 unit SUBCUT QIDACHS [facility]; Protocol Last Admin: 09/24/23 09:00 Dose: 10 unit Documented By: RENATO Naloxone HCl (Naloxone Hcl 0.4 Mg/Ml Vial) 0.2 mg IVPUSH Q2M PRN PRN Reason: Excessive sedation or RR < 8 Sertraline HCl (Sertraline Hcl 100 Mg Tablet) 100 mg PO DAILY [facility] Last Admin: 09/24/23 09:01 Dose: 100 mg Documented By: RENATO Sodium Chloride (0.9 % Sodium Chloride Flush 3 Ml Syringe) 3 ml IVFLUSH QSHIFT [facility] Last Admin: 09/24/23 08:06 Dose: 3 ml Documented By: RENATO Sodium Hypochlorite (Sodium Hypochlorite 0.125% 473 Ml Solution) 1 appl TOPICAL DAILY [facility] Last Admin: 09/24/23 10:35 Dose: Not Given Documented By: RENATO Non-Admin Reason: not in pts room Sodium Hypochlorite (Sodium Hypochlorite 0.125% 473 Ml Solution) 1 appl TOPICAL DAILY [facility] Last Admin: 09/24/23 10:35 Dose: Not Given Documented By: RENATO Non-Admin Reason: not in pts room Labs 09/24/23 05:39 09/24/23 05:39 Labs: Laboratory Results - last 24 hr 09/23/23 09/23/23 09/23/23 11:47 16:21 20:22 MCV MCH MCHC RDW Plt Count MPV Absolute Nucleated RBC Nucleated RBC % (auto) Anion Gap Estim Creat Clear Calc Estimated GFR POC Glucose 364 H* 337 H 301 H Random Glucose Calcium Random Vancomycin 09/23/23 09/24/23 09/24/23 21:15 05:39 07:07 MCV 96.7 MCH 29.0 MCHC 30.0 L RDW 15.7 Plt Count 308 D MPV 11.7 Absolute Nucleated RBC 0.160 H Nucleated RBC % (auto) 1.1 H Anion Gap 16 Estim Creat Clear Calc 158.8 Estimated GFR > 60 POC Glucose 315 H Random Glucose 320 H Calcium 8.3 L Random Vancomycin 5.2 L Assessment and Plan (1) Hypernatremia: Status: Acute (2) Type 2 diabetes mellitus: Status: Acute (3) Necrotizing soft tissue infection: Status: Acute Plan 48M PMH DM, morbid obesity, htn, mood disorder, KIM, presented 09/14/23 with perneal erythema, pain, 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 admitted to ICU, treated with vanco, zosyn, clinda, pressor support, insulin. underwent debridement 09/14/23 and 09/17/23. patient eventually extubated, weaned off pressors. downgraded 09/21/23. course complicated by acute blood loss and inflammatory anemia requiring transfusions, hypernatremia. 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 and IV meropenem on 09/21 s/p iv vanc, and zosyn, cultures negative s/p debridements, gen surg following, continue dressing change as per General surgery and wound nurse, No fevers in last 24 hours, WBC trending down Will discuss duration of antibiotic with ID DM with DKa dka resolved, elevated blood sugars likely due to IV D5 Continue Lantus 15 units b.i.d. and insulin sliding scale, follow blood sugar closely since IV D5 discontinued acute hypoxic respiratory failure due to sepsis extubated successfully, continue to wean o2 mohini resolved acute hypokalemia repleted and resolved acute hypernatremia Sodium improved to 149 will continue to push by mouth fluid DC IV D5W being followed by Nephrology , follow BMP icu/critical illness myopathy Diet upgraded to thin liquids and modified solids PT rec LTAC acute blood loss and inflammatory anemia stable hematocrit mood disorder on sertraline restarted at half dose, all other home medications on hold. htn stable BP ,lisinopril on hold morbid obesity weight loss recommended KIM cpap at night dvt prophylaxis - lovenox full code reason for continued hospitalization:severe electrolyte abnormalities, wound care, on IV antibiotics. Quality Stroke Does the patient have a stroke diagnosis?: No VTE Prior VTE?: No VTE Risk Level:: Medical - moderate - high VTE Device Contraindication: N/A - Device Ordered VTE Drug Contraindication: Treatment Not Tolerated
[2023-09-24 11:21] LABS: Glucose, Whole Blood 321 mg/dL (60-115)
--- NOTE | 2023-09-24 11:34 | MHC.SL.SWA ---
Speech Pathologist Impression: Risk of aspiration, oropharyngeal dysphagia Risk of Aspiration Due to: Hx of Recent Extubation Dysphasia Diet Status: UPGRADE from NDD1/NT to NDD2/THIN Liquid Consistency and Strategies for Safe Swallow: Liquid Intake Recommendation: Thin Liquid Intake Strategies: Small Sips No Straws Solid Food Consistency: Dietary Recommendations: Grnd/Mech Altered (NDD2) Additional Modifications to Solid Foods: UPGRADE to GROUND/MECH ALTERED (NDD2) diet and THIN liquids, pills to be administered WHOLE or CRUSHED in PUREE. Patient continues to require 1:1 feeding. Oral Medication Intake: Whole with Puree Please contact the pharmacy regarding appropriate crushable or liquid drug formulations that are available whenever modified delivery is recommended. Compensatory Strategies and Precautions to be Taken for Safe Swallow: Sitting Upright (90 deg) No Straw Small Bites and Sips Alternate Liquids/Solids Rate of Ingestion Change Avoid Specific Foods Supervision While Eating and Drinking for Safe Swallow: Total Supervision (1:1) Foods to Avoid: Mixed textures Swallowing Recommended Treatments: Compens. Strategy Educat. Recommendation for Speech: Inpatient Speech Therapy Frequency/Duration: M-F PRN Date Range for Service Req: Timeline to reassess: Swimming Pool Cleaner Clinican/Clinical Fellow: No Supervisory Statement: I have reviewed and agree with the student/clinical fellow's documentation: N/A Speech Language Pathologist: Mildred Meléndez M.A., CCC-ROLLER MACHINE OPERATOR
[2023-09-24] MEDS: Enoxaparin Sodium 40 MG/0.4 ML SYRINGE SUBCUT (11:58)
[2023-09-24 12:00] VITALS: BP 122/58; PULSE 69; RESP 18; TEMP 36.8; O2SAT 97
[2023-09-24 15:01] VITALS: BP 129/59; PULSE 66; RESP 20; TEMP 36.2; O2SAT 94
[2023-09-24 15:58] LABS: Glucose, Whole Blood 217 mg/dL (60-115)
[2023-09-24 18:56] VITALS: BP 140/62; PULSE 75; RESP 20; TEMP 36.6; O2SAT 91
[2023-09-24 20:06] LABS: Glucose, Whole Blood 247 mg/dL (60-115)
[2023-09-24 21:42] LABS: CDiff Gene PCR NEGATIVE (Negative)
[2023-09-25] VITALS: BP 138/61; PULSE 76; RESP 17; TEMP 36.7; O2SAT 92
[2023-09-25] MEDS: Clindamycin Phosphate/D5W 900 MG/50 ML PIGGYBACK 50 MG IV ×3 (03:52→21:43)
[2023-09-25 04:00] VITALS: BP 136/63; PULSE 70; RESP 17; TEMP 37; O2SAT 98
--- NOTE | 2023-09-25 06:58 | PM.PNGS ---
Subjective Subjective Date of Service: 09/25/23 <[facility] Last Filed: 09/25/23 07:20> 09/26/23 <Michale Matthew MD - Last Filed: 09/26/23 10:20> Interval history: Patient reports he is doing fine . No acute events overnight, vitals remain stable. WBC count is downtrending, hemoglobin and hematocrit are stable. POC glucose remains elevated in 200-300s. Electrolyte abnormalities are slowly correcting. Denies pain, he said I cannot feel anything down there . Eating without difficulty, having soft BMs. Requesting to get out of bed to shower, he is frustrated that he is not clean and has not gotten out of bed in over a week. Wound nurse came and evaluate the patient yesterday. Recommending dressing changes twice a day, frequent repositioning, and frequent incontinence care with barrier cream as needed. <[facility] Filed: 09/25/23 07:20> Physical Exam Vital Signs: Vital Signs: Last Vital Signs Temp 98.6 F 09/25/23 04:00 Pulse 70 09/25/23 04:00 Resp 17 09/25/23 04:00 BP 136/63 09/25/23 04:00 Pulse Ox 98 09/25/23 04:00 O2 Del Method Nasal Cannula 09/25/23 04:00 O2 Flow Rate 5 09/25/23 04:00 FiO2 30 09/20/23 11:33 BMI result Body Mass Index 50.2 <[facility] Filed: 09/25/23 07:20> Const: General: cooperative and comfortable <[facility] Filed: 09/25/23 07:20> Orientation/consciousness: patient oriented x3 <[facility] Filed: 09/25/23 07:20> Chest: Chest palpation & inspection: normal inspection of the chest <[facility] Filed: 09/25/23 07:20> Resp: Effort & Inspection: normal respiratory effort and able to speak in complete sentences <[facility] Filed: 09/25/23 07:20> Auscultation: clear to auscultation bilaterally <[facility] Filed: 09/25/23 07:20> Cardio: Rate: regular rate <[facility] Filed: 09/25/23 07:20> Rhythm: regular rhythm <[facility] Filed: 09/25/23 07:20> Heart sounds: S1 normal heart sound present and S2 normal heart sound present <[facility] Filed: 09/25/23 07:20> GI: Inspection: Yes normal to inspection <[facility] Filed: 09/25/23 07:20> Palpation (GI): Soft to palpation <[facility] Filed: 09/25/23 07:20> Neuro: General: patient oriented x3 <[facility] Filed: 09/25/23 07:20> Objective Data Active Medications Acetaminophen (Acetaminophen Oral Liquid 650 Mg/20.3 Ml Solution) 650 mg PO Q4H PRN PRN Reason: Fever Last Admin: 09/21/23 14:05 Dose: 650 mg Documented By: CECIL Cyanocobalamin (Cyanocobalamin (Vitamin B-12) 1,000 Mcg Tablet) 1,000 mcg PO DAILY [facility] Last Admin: 09/24/23 09:01 Dose: 1,000 mcg Documented By: RENATO Enoxaparin Sodium (Enoxaparin Sodium 40 Mg/0.4 Ml Syringe) 40 mg SUBCUT Q24H [facility] Last Admin: 09/24/23 11:58 Dose: 40 mg Documented By: RENATO Glucose (Glucose Gel 15 Gm Gel..Gram.) 15 gm PO Q15M PRN; Protocol PRN Reason: per Hypoglycemia Standing Ord. Hydromorphone HCl (Hydromorphone Hcl 0.5 Mg/0.5 Ml Syringe) 0.5 mg IVPUSH Q3H PRN; Protocol PRN Reason: moderate pain Last Admin: 09/24/23 11:59 Dose: 0.5 mg Documented By: RENATO Dextrose (D10) 250 mls @ 750 mls/hr IV Q15M PRN PRN Reason: per Hypoglycemia Standing Ord. Meropenem 1 gm/ Sodium (Chloride) 100 mls @ 200 mls/hr IV Q8H [facility] Last Infusion: 09/25/23 02:04 Dose: Infused Documented By: PÉREZ Clindamycin Phosphate (Cleocin) 900 mg in 50 mls @ 50 mls/hr IV Q8H [facility] Last Infusion: 09/25/23 05:01 Dose: Infused Documented By: PÉREZ Daptomycin 570 mg/ Sodium (Chloride) 61.4 mls @ 122.8 mls/hr IV Q24H [facility] Last Infusion: 09/24/23 22:59 Dose: Infused Documented By: PÉREZ Insulin Glargine (Insulin Glargine,Hum.Rec.Anlog 100 Unit/Ml 10 Ml Vial) 15 unit SUBCUT BID [facility] Last Admin: 09/24/23 22:24 Dose: 15 unit Documented By: PÉREZ Insulin Human Lispro (Insulin Lispro 100 Unit/Ml 3 Ml Vial) 0 unit SUBCUT QIDACHS [facility]; Protocol Last Admin: 09/24/23 22:24 Dose: 6 unit Documented By: PÉREZ Naloxone HCl (Naloxone Hcl 0.4 Mg/Ml Vial) 0.2 mg IVPUSH Q2M PRN PRN Reason: Excessive sedation or RR < 8 Sertraline HCl (Sertraline Hcl 100 Mg Tablet) 100 mg PO DAILY [facility] Last Admin: 09/24/23 09:01 Dose: 100 mg Documented By: RENATO Sodium Chloride (0.9 % Sodium Chloride Flush 3 Ml Syringe) 3 ml IVFLUSH QSHIFT [facility] Last Admin: 09/24/23 22:30 Dose: 3 ml Documented By: PÉREZ Sodium Hypochlorite (Sodium Hypochlorite 0.125% 473 Ml Solution) 1 appl TOPICAL DAILY [facility] Last Admin: 09/24/23 10:35 Dose: Not Given Documented By: RENATO Non-Admin Reason: not in pts room Sodium Hypochlorite (Sodium Hypochlorite 0.125% 473 Ml Solution) 1 appl TOPICAL DAILY [facility] Last Admin: 09/24/23 10:35 Dose: Not Given Documented By: RENATO Non-Admin Reason: not in pts room <[facility] - Last Filed: 09/25/23 07:20> Labs CBC & Chem 7: 09/24/23 05:39 09/25/23 09:08 <[facility] Last Filed: 09/25/23 07:20> Labs: Laboratory Results - last 24 hr 09/24/23 09/24/23 09/24/23 05:39 07:07 11:16 Anion Gap 16 Estim Creat Clear Calc 158.8 Estimated GFR > 60 POC Glucose 315 H 321 H Random Glucose 320 H Calcium 8.3 L C. difficile Tox B Gene 09/24/23 09/24/23 09/24/23 15:55 19:34 20:02 Anion Gap Estim Creat Clear Calc Estimated GFR POC Glucose 217 H 247 H Random Glucose Calcium C. difficile Tox B Gene NEGATIVE <[facility] Last Filed: 09/25/23 07:20> Procedures Date of Service Date of Service: 09/25/23 <[facility] Last Filed: 09/25/23 07:20> 09/26/23 <Michael Matthew MD - Last Filed: 09/26/23 10:20> Arterial Line Size (Gauge): 20 <[facility] Last Filed: 09/25/23 07:20> Progress Note: A&P Assessment and plan (1) Necrotizing soft tissue infection: Status: Acute <[facility] Filed: 09/25/23 07:20> Assessment and Plan: Patient is s/p wound debridements (09/14/23 and 09/17/23) due to jory's gangrene of a diabetic wound. Extubated on 09/21/23. Currently on daptomycin, clindamycin and merepenem Tight glucose control can assist with healing Wound nurse is following Will evaluate wound later today to see if wound vac can be applied Discussed showering, can do if wound can be covered and patient can stand, would recommend PT evaluation given that he has been in bed for several days. <[facility] Filed: 09/25/23 07:20> Time Spent With Patient Time: Total time managing care of this patient today ____ minutes. <[facility] Filed: 09/25/23 07:20> Quality Stroke Does the patient have a stroke diagnosis?: No <[facility] Filed: 09/25/23 07:20> VTE Prior VTE?: No <[facility] Filed: 09/25/23 07:20> VTE Risk Level:: Medical - moderate - high <[facility] Filed: 09/25/23 07:20> VTE Device Contraindication: N/A - Device Ordered <[facility] Filed: 09/25/23 07:20> VTE Drug Contraindication: Treatment Not Tolerated <[facility] Filed: 09/25/23 07:20>
[2023-09-25 07:27] LABS: Glucose, Whole Blood 278 mg/dL (60-115)
[2023-09-25 08:00] VITALS: BP 142/63; PULSE 74; RESP 20; TEMP 36.1; O2SAT 98
[2023-09-25] MEDS: Cyanocobalamin (Vitamin B-12) 1,000 MCG TABLET 1000 MCG PO (09:28)
[2023-09-25] MEDS: Sertraline HCL 100 MG TABLET PO (09:28)
[2023-09-25] MEDS: Sodium Hypochlorite 0.125% 473 ML SOLUTION 1 APPL TOPICAL (09:28)
[2023-09-25] MEDS: Insulin Lispro 100 UNIT/ML 3 ML VIAL SUBCUT ×4 (09:29→20:42)
[2023-09-25] MEDS: 0.9 % Sodium Chloride Flush 3 ML SYRINGE IVFLUSH ×3 (09:29→23:43)
[2023-09-25] MEDS: Insulin Glargine,Hum.rec.anlog 100 UNIT/ML 10 ML VIAL 15 UNIT SUBCUT (09:44)
[2023-09-25 10:26] LABS: Anion Gap 17 (12-20); Blood Urea Nitrogen 23 mg/dL (9-16); Calcium 8.2 mg/dL (8.4-10.2); Carbon Dioxide 23 mmol/L (22-29); Chloride 111 mmol/L (96-108); Creatinine Clr Calc Pharmacy 158.8; Estimated Glomerular Filt Rate > 60; Glucose Random 319 mg/dL (60-115); Potassium 3.8 mmol/L (3.3-5.1); Sodium 147 mmol/L (135-145)
--- NOTE | 2023-09-25 11:03 | P.PNIM_ITS ---
Subjective Subjective Date of Service: 09/25/23 Interval History: Wants to be discharged home. Offers no acute complaints ,denies pain, tolerating diet, no nausea, no vomiting, no abdominal pain, no acute events overnight. Review of Systems All other system reviewed and are negative. Physical Exam 2 Vital Signs: Vital Signs: Last Vital Signs Temp 97.0 F 09/25/23 08:00 Pulse 74 09/25/23 08:00 Resp 20 09/25/23 08:00 BP 142/63 H 09/25/23 08:00 Pulse Ox 98 09/25/23 08:00 O2 Del Method Nasal Cannula 09/25/23 08:00 O2 Flow Rate 5 09/25/23 08:00 FiO2 30 09/20/23 11:33 BMI result Body Mass Index 50.2 Const: Other: General awake alert, in no acute distress. Neck no JVD. CVS regular rate rhythm, Respiratory lungs clear to auscultation, no respiratory distress, no wheeze, no rhonchi. Gastrointestinal abdomen soft, non tender, bowel sounds audible. Dressing to lower buttock, proximal thigh in place Extremities no edema. Neuro awake alert x3 Objective Data Active Medications Acetaminophen (Acetaminophen Oral Liquid 650 Mg/20.3 Ml Solution) 650 mg PO Q4H PRN PRN Reason: Fever Last Admin: 09/21/23 14:05 Dose: 650 mg Documented By: CECIL Cyanocobalamin (Cyanocobalamin (Vitamin B-12) 1,000 Mcg Tablet) 1,000 mcg PO DAILY [facility] Last Admin: 09/25/23 09:28 Dose: 1,000 mcg Documented By: YUE Enoxaparin Sodium (Enoxaparin Sodium 40 Mg/0.4 Ml Syringe) 40 mg SUBCUT Q24H [facility] Last Admin: 09/24/23 11:58 Dose: 40 mg Documented By: RENATO Glucose (Glucose Gel 15 Gm Gel..Gram.) 15 gm PO Q15M PRN; Protocol PRN Reason: per Hypoglycemia Standing Ord. Hydromorphone HCl (Hydromorphone Hcl 0.5 Mg/0.5 Ml Syringe) 0.5 mg IVPUSH Q3H PRN; Protocol PRN Reason: moderate pain Last Admin: 09/24/23 11:59 Dose: 0.5 mg Documented By: RENATO Dextrose (D10) 250 mls @ 750 mls/hr IV Q15M PRN PRN Reason: per Hypoglycemia Standing Ord. Meropenem 1 gm/ Sodium (Chloride) 100 mls @ 200 mls/hr IV Q8H [facility] Last Infusion: 09/25/23 10:15 Dose: Infused Documented By: YUE Clindamycin Phosphate (Cleocin) 900 mg in 50 mls @ 50 mls/hr IV Q8H [facility] Last Infusion: 09/25/23 05:01 Dose: Infused Documented By: PÉREZ Daptomycin 570 mg/ Sodium (Chloride) 61.4 mls @ 122.8 mls/hr IV Q24H [facility] Last Infusion: 09/24/23 22:59 Dose: Infused Documented By: PÉREZ Insulin Glargine (Insulin Glargine,Hum.Rec.Anlog 100 Unit/Ml 10 Ml Vial) 15 unit SUBCUT BID [facility] Last Admin: 09/25/23 09:44 Dose: 15 unit Documented By: YUE Insulin Human Lispro (Insulin Lispro 100 Unit/Ml 3 Ml Vial) 0 unit SUBCUT QIDACHS [facility]; Protocol Last Admin: 09/25/23 09:29 Dose: 8 unit Documented By: YUE Naloxone HCl (Naloxone Hcl 0.4 Mg/Ml Vial) 0.2 mg IVPUSH Q2M PRN PRN Reason: Excessive sedation or RR < 8 Sertraline HCl (Sertraline Hcl 100 Mg Tablet) 100 mg PO DAILY [facility] Last Admin: 09/25/23 09:28 Dose: 100 mg Documented By: YUE Sodium Chloride (0.9 % Sodium Chloride Flush 3 Ml Syringe) 3 ml IVFLUSH QSHIFT [facility] Last Admin: 09/25/23 09:29 Dose: 3 ml Documented By: YUE Sodium Hypochlorite (Sodium Hypochlorite 0.125% 473 Ml Solution) 1 appl TOPICAL DAILY [facility] Last Admin: 09/25/23 09:29 Dose: Not Given Documented By: YUE Non-Admin Reason: Duplicate Order Sodium Hypochlorite (Sodium Hypochlorite 0.125% 473 Ml Solution) 1 appl TOPICAL DAILY [facility] Last Admin: 09/25/23 09:28 Dose: 1 appl Documented By: YUE Labs 09/24/23 05:39 09/25/23 09:08 Labs: Laboratory Results - last 24 hr 09/24/23 09/24/23 09/24/23 11:16 15:55 19:34 Anion Gap Estim Creat Clear Calc Estimated GFR POC Glucose 321 H 217 H Random Glucose Calcium C. difficile Tox B Gene NEGATIVE 09/24/23 09/25/23 09/25/23 20:02 07:21 09:08 Anion Gap 17 Estim Creat Clear Calc 158.8 Estimated GFR > 60 POC Glucose 247 H 278 H Random Glucose 319 H Calcium 8.2 L C. 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 admitted to ICU, treated with vanco, zosyn, clinda, pressor support, insulin. underwent debridement 09/14/23 and 09/17/23. patient eventually extubated, weaned off pressors. downgraded 09/21/23. course complicated by acute blood loss and inflammatory anemia requiring transfusions, hypernatremia. 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 and IV meropenem on 09/21 s/p iv vanc, and zosyn, cultures negative s/p debridements, gen surg following, continue dressing change as per General surgery and wound nurse, frequent position change aim for better blood sugar control No fevers in last 24 hours, WBC trending down, blood cultures negative ID to adjust antibiotics DM with DKa dka resolved, elevated blood sugars Increase Lantus to 20 units b.i.d. and adjust insulin sliding scale, follow blood sugar closely acute hypoxic respiratory failure due to sepsis extubated successfully, continue to wean o2 mohini resolved acute hypokalemia repleted and resolved acute hypernatremia Sodium improved to 147 will continue to push by mouth fluid , follow BMP icu/critical illness myopathy Diet upgraded to thin liquids and modified solids PT rec LTAC acute blood loss and inflammatory anemia stable hematocrit mood disorder on sertraline restarted at half dose, all other home medications on hold. htn stable BP ,lisinopril on hold morbid obesity weight loss recommended KIM cpap at night dvt prophylaxis - lovenox full code reason for continued hospitalization:severe electrolyte abnormalities, wound care, on IV antibiotics. Quality Stroke Does the patient have a stroke diagnosis?: No VTE Prior VTE?: No VTE Risk Level:: Medical - moderate - high VTE Device Contraindication: N/A - Device Ordered VTE Drug Contraindication: Treatment Not Tolerated
[2023-09-25 11:41] LABS: Glucose, Whole Blood 284 mg/dL (60-115)
[2023-09-25 12:00] VITALS: BP 135/66; PULSE 83; RESP 20; TEMP 36.7; O2SAT 98
[2023-09-25] MEDS: HYDROmorphone HCl 0.5 MG/0.5 ML SYRINGE IVPUSH ×2 (12:33→23:39)
[2023-09-25] MEDS: Enoxaparin Sodium 40 MG/0.4 ML SYRINGE SUBCUT (12:33)
--- NOTE | 2023-09-25 12:43 | P.PNNP_ITS ---
Subjective Subjective Date of Service: 09/25/23 Interval history: Wants to be discharged home. Offers no acute complaints ,denies pain, tolerating diet, no nausea, no vomiting, no abdominal pain, no acute events overnight. Physical Exam 2 Vital Signs: Vital Signs: Last Vital Signs Temp 97.0 F 09/25/23 08:00 Pulse 74 09/25/23 08:00 Resp 20 09/25/23 08:00 BP 142/63 H 09/25/23 08:00 Pulse Ox 98 09/25/23 08:00 O2 Del Method Nasal Cannula 09/25/23 08:00 O2 Flow Rate 5 09/25/23 08:00 FiO2 30 09/20/23 11:33 BMI result Body Mass Index 50.2 Const: General: no acute distress Orientation/consciousness: patient oriented x3 Eyes: EOM: EOMs intact bilaterally Resp: Auscultation: diminished lung sounds Cardio: Rate: regular rate GI: Palpation (GI): Soft to palpation Neuro: General: patient oriented x3 Objective Data Labs 09/24/23 05:39 09/25/23 09:08 Labs: Laboratory Results - last 24 hr 09/24/23 09/24/23 09/24/23 15:55 19:34 20:02 Sodium Potassium Chloride Carbon Dioxide Anion Gap BUN Creatinine Estim Creat Clear Calc Estimated GFR POC Glucose 217 H 247 H Random Glucose Calcium C. difficile Tox B Gene NEGATIVE 09/25/23 09/25/23 09/25/23 07:21 09:08 11:32 Sodium 147 H Potassium 3.8 Chloride 111 H Carbon Dioxide 23 Anion Gap 17 BUN 23 H Creatinine 0.77 Estim Creat Clear Calc 158.8 Estimated GFR > 60 POC Glucose 278 H 284 H Random Glucose 319 H Calcium 8.2 L C. difficile Tox B Gene Microbiology Microbiology Results: Microbiology 09/14/23 10:56 Blood - Venous Blood Culture - Final No growth after 5 days. 09/14/23 10:40 Blood - Venous Blood Culture - Final No growth after 5 days. Procedures Date of Service Date of Service: 09/26/23 Arterial Line Size (Gauge): 20 Assessment & Plan Assessment and plan (1) Hypernatremia: Status: Acute Plan Had significant water deficit Treated with IV D5W & PO free water Serum sodium improved; D/C D5W Needs to keep up with PO free water C/W rest of current management Time Spent With Patient Time: Total time managing care of this patient today ____ minutes. Progress Note: Quality Stroke Does the patient have a stroke diagnosis?: No
--- NOTE | 2023-09-25 12:51 | MHC.SL.DTX ---
Dysphagia Diet modifications: Last documented Solid diet consistencies: Grnd/Mech Altered (NDD2) Last documented Liquid consistency: Thin Changes made to current diet?: Yes: Upgrade from NDD2/THIN to NDD3/THIN Liquid Consistency and Strategies: Liquid Intake Recommendation: Thin Compensatory Strategies for Safe Swallow: Small Sips No Straws Compensatory Strategies for Safe Swallow(b): Sitting Upright (90 deg) No Straw Small Bites and Sips Alternate Liquids/Solids Rate of Ingestion Change Avoid Specific Foods Solid Food Consistency: Dietary Recommendations: Chopped/Advanced (NDD3) Additional Modifications to Solids: Recommend UPGRADE to CHOPPED/ADVANCED SOLIDS (NDD3) and THIN LIQUIDS. MEDS WHOLE with LIQUID or PUREE - as preferred. Ensure adequate positioning for meals. Pt has limited bed mobility. HORSE BUYER will follow-up x1 to monitor tolerance of diet upgrade. Oral Medication Intake: Whole with Liquid Strategies and Precautions to be Taken for Safe Swallow: Sitting Upright (90 deg) No Straw Small Bites and Sips Alternate Liquids/Solids Rate of Ingestion Change Avoid Specific Foods Supervision While Eating and/Drinking: Total Supervision (1:1) Foods to Avoid: Mixed textures Swallowing Recommended Treatments: Compens. Strategy Educat. Level of Impact on: Daily activities: Mild Interpersonal interactions: Mild Education: None Employment: None Community: Mild Prognosis for Improvement: Good Recommendation for Speech: Inpatient Speech Therapy Comment: Frequency/Duration: M-F PRN Treatment: Pt continue to improve on the Med-Tele floor. Today he is complaintive of his torres catheter not draining. RN informed. He tolerated limited bites of a Regular Solid (Cracker) which he states he can eat despite edentulous status. He tolerates follow-up sips of thin liquids with no overt s/s of aspiration. Pt is deemed ready for further upgrade closer to his baseline. Pt additionally requesting to be sat up at the edge of his bed. Messages communicated with BOX TOE CUTTER. Software Developer Mid Level Clinican/Clinical Fellow: No Supervisory Statement: I have reviewed and agree with the student/clinical fellow's documentation: N/A Speech Language Pathologist: Jerry Valverde M.A., [facility]
[2023-09-25 15:42] VITALS: BP 113/55; PULSE 77; RESP 18; TEMP 36.3; O2SAT 99
[2023-09-25 16:07] LABS: Glucose, Whole Blood 220 mg/dL (60-115)
--- NOTE | 2023-09-25 16:18 | PM.EVENT ---
Event Note Date of Service: 09/25/23 Event Note: Dressing changes done by wound care nurse Mai today Wound reported to be clean Explained this to patient He says that he needs his home meds restarted We will discuss with hospitalist service Plan to do dressing changes tomorrow Time Spent With Patient Time: Total time managing care of this patient today ____ minutes.
--- NOTE | 2023-09-25 16:26 | HO.WOUND ---
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 Matthew from General Surgery - See progress notes and H&P for detailed history.? Wound consult placed for Left buttock wound and Right Thigh surgical site.? Patient agreeable to assessment and photo documentation.? Patient medicated by direct care nurse prior to dressing change - see MAR for details. Right Posterior and lateral Thigh Etiology: ??S/P Surgical debridement for Fourniers Gangrene Wound Bed: improving based on photo review - 60% pale pink tissue 40% yellow necrotic tissue (some is adipose tissue) Drainage / Odor: serosang persaud yellow drainage noted on dressing when removed - mild odor noted Edges: ? irregular but well defined Stella wound: ?Intact - No erythema noted - No Induration, Fluctuance or Warmth noted Pain: pain reported when dressing change performed Goals of Treatment: ? Continue Dakins for continued debridement - Future candidate for wound vac placement - discussed with Dr. Matthew - will continue to assess wound bed for wound vac readiness. Dakins used in todays dressing change. discussed with direct care nurse to pass on in reports twice a day dakins dressings will aid in cleaning up the slough noted. Left buttock / skin fold - MASD - noted for irregular edges - adherent yellow slough - periwound is intact no erythema or induration noted. Continue with Triad and off loading. Agility Pulsate bed ordered for patient comfort and envelopment - not yet arrived will monitor. Inpatient will continue to follow - no new topical recommendations needed at this time. Recommendations: 1. Turn and Reposition every 2 hours and as needed for patient comfort.? Use pillows or wedges to support off loading positions. 2. Off Load all bony prominences with use of pillows and heel boots if needed.? Apply Preventative foams where needed. ? 3. Monitor for incontinence and moisture control, use barrier creams when needed for prevention and treatment. 4. Provide adequate and supplemental nutrition.? 5. Continue low air loss mattress. 6. When applicable maintain blood glucose levels per Providers order. 7. Left Buttock / Skin Fold - Cleanse with PH balanced wipes. Apply thin layer of Triad to wound bed - only pat and dab no scrub and rub when soiling occurs. Reapply thin layer PRN after each episode of incontinence. 8. Right Buttock / Thigh - Cleanse and irrigate with NS. Lightly pack wound bed and tunnels with Dakins Moist gauze roll. Cover with dry gauze pad followed by ABD pads. Change twice a day. Re-consult wound care Nurse for wound deterioration or wound changes.
[2023-09-25 19:06] VITALS: BP 144/67; PULSE 73; RESP 18; TEMP 36.2; O2SAT 97
[2023-09-25 20:10] LABS: Glucose, Whole Blood 285 mg/dL (60-115)
[2023-09-25] MEDS: Insulin Glargine,Hum.rec.anlog 100 UNIT/ML 10 ML VIAL 20 UNIT SUBCUT (20:41)
[2023-09-26] VITALS (9 sets, daily range): BP systolic 109–147; BP diastolic 53–84; PULSE 63–90; RESP 18–20; TEMP 36.1–36.7; O2SAT 98–100
[2023-09-26] MEDS: Simethicone 80 MG TAB.CHEW PO (02:31)
[2023-09-26] MEDS: Clindamycin Phosphate/D5W 900 MG/50 ML PIGGYBACK 50 MG IV (06:02)
[2023-09-26 07:05] LABS: Glucose, Whole Blood 173 mg/dL (60-115)
[2023-09-26] MEDS: Insulin Lispro 100 UNIT/ML 3 ML VIAL SUBCUT ×4 (08:37→21:19)
[2023-09-26] MEDS: Insulin Glargine,Hum.rec.anlog 100 UNIT/ML 10 ML VIAL 20 UNIT SUBCUT ×2 (08:37→21:19)
[2023-09-26] MEDS: Sertraline HCL 100 MG TABLET PO (08:38)
[2023-09-26] MEDS: 0.9 % Sodium Chloride Flush 3 ML SYRINGE IVFLUSH ×3 (08:38→21:19)
[2023-09-26] MEDS: Cyanocobalamin (Vitamin B-12) 1,000 MCG TABLET 1000 MCG PO (08:38)
[2023-09-26] MEDS: HYDROmorphone HCl 0.5 MG/0.5 ML SYRINGE IVPUSH ×3 (08:51→23:35)
--- NOTE | 2023-09-26 10:02 | MHC.CLN ---
F/U PO INTAKE 25% X4 MEALS DIET RX: 2200DM CHOPPED -APPROPRIATE PT RECEIVING ENSURE MAX BID TO PROVIDE 300KCALS, 60G PROTEIN MONITOR PO INTAKE AND ENCOURAGE SUPPLEMENTS
--- NOTE | 2023-09-26 10:16 | MHC.CM.PN ---
Per ROUNDS discussion, Patient is not yet medically cleared for dc (may need a wound vac); PT is recommending LTACH and [facility] is following. CM will continue to follow.
--- NOTE | 2023-09-26 10:20 | P.PNGS_ITS ---
Subjective Subjective Date of Service: 09/26/23 Interval history: Complains of gas pains Says he had been depressed Otherwise seems to be improving Physical Exam 2 Vital Signs: Vital Signs: Last Vital Signs Temp 98.1 F 09/26/23 07:03 Pulse 66 09/26/23 07:03 Resp 20 09/26/23 07:03 BP 134/64 09/26/23 07:03 Pulse Ox 98 09/26/23 07:03 O2 Del Method Nasal Cannula 09/26/23 07:03 O2 Flow Rate 5 09/26/23 07:03 FiO2 30 09/20/23 11:33 BMI result Body Mass Index 50.2 Const: Other: Appears weak General: comfortable Resp: Effort & Inspection: normal respiratory effort Cardio: Rate: regular rate GI: Other: Soft, obese Back/Spine/Pelvis: Other: Large open with on the distal buttock and thigh clean, minimal patches of fibrinous debris, no ongoing necrotizing process, good granulation tissue Objective Data Active Medications Acetaminophen (Acetaminophen Oral Liquid 650 Mg/20.3 Ml Solution) 650 mg PO Q4H PRN PRN Reason: Fever Last Admin: 09/21/23 14:05 Dose: 650 mg Documented By: CECIL Cyanocobalamin (Cyanocobalamin (Vitamin B-12) 1,000 Mcg Tablet) 1,000 mcg PO DAILY [facility] Last Admin: 09/26/23 08:38 Dose: 1,000 mcg Documented By: RENATO Enoxaparin Sodium (Enoxaparin Sodium 40 Mg/0.4 Ml Syringe) 40 mg SUBCUT Q24H [facility] Last Admin: 09/25/23 12:33 Dose: 40 mg Documented By: OLIVIER Glucose (Glucose Gel 15 Gm Gel..Gram.) 15 gm PO Q15M PRN; Protocol PRN Reason: per Hypoglycemia Standing Ord. Hydromorphone HCl (Hydromorphone Hcl 0.5 Mg/0.5 Ml Syringe) 0.5 mg IVPUSH Q3H PRN; Protocol PRN Reason: moderate pain Last Admin: 09/26/23 08:51 Dose: 0.5 mg Documented By: RENATO Dextrose (D10) 250 mls @ 750 mls/hr IV Q15M PRN PRN Reason: per Hypoglycemia Standing Ord. Meropenem 1 gm/ Sodium (Chloride) 100 mls @ 200 mls/hr IV Q8H [facility] Last Infusion: 09/26/23 10:04 Dose: Infused Documented By: RENATO Clindamycin Phosphate (Cleocin) 900 mg in 50 mls @ 50 mls/hr IV Q8H [facility] Last Infusion: 09/26/23 09:00 Dose: Infused Documented By: RENATO Daptomycin 570 mg/ Sodium (Chloride) 61.4 mls @ 122.8 mls/hr IV Q24H [facility] Last Infusion: 09/25/23 21:12 Dose: Infused Documented By: ARMANDO Insulin Glargine (Insulin Glargine,Hum.Rec.Anlog 100 Unit/Ml 10 Ml Vial) 20 unit SUBCUT BID [facility] Last Admin: 09/26/23 08:37 Dose: 20 unit Documented By: RENATO Insulin Human Lispro (Insulin Lispro 100 Unit/Ml 3 Ml Vial) 0 unit SUBCUT QIDACHS [facility]; Protocol Last Admin: 09/26/23 08:37 Dose: 2 unit Documented By: RENATO Naloxone HCl (Naloxone Hcl 0.4 Mg/Ml Vial) 0.2 mg IVPUSH Q2M PRN PRN Reason: Excessive sedation or RR < 8 Sertraline HCl (Sertraline Hcl 100 Mg Tablet) 100 mg PO DAILY [facility] Last Admin: 09/26/23 08:38 Dose: 100 mg Documented By: RENATO Sodium Chloride (0.9 % Sodium Chloride Flush 3 Ml Syringe) 3 ml IVFLUSH QSHIFT [facility] Last Admin: 09/26/23 08:38 Dose: 3 ml Documented By: RENATO Sodium Hypochlorite (Sodium Hypochlorite 0.125% 473 Ml Solution) 1 appl TOPICAL DAILY [facility] Last Admin: 09/25/23 09:29 Dose: Not Given Documented By: YUE Non-Admin Reason: Duplicate Order Sodium Hypochlorite (Sodium Hypochlorite 0.125% 473 Ml Solution) 1 appl TOPICAL DAILY [facility] Last Admin: 09/25/23 09:28 Dose: 1 appl Documented By: YUE Labs 09/24/23 05:39 09/25/23 09:08 Labs: Laboratory Results - last 24 hr 08/20/24 08/20/24 08/20/24 09:08 11:32 15:59 Anion Gap 17 Estim Creat Clear Calc 158.8 Estimated GFR > 60 POC Glucose 284 H 220 H Random Glucose 319 H Calcium 8.2 L 09/25/23 09/26/23 20:06 06:53 Anion Gap Estim Creat Clear Calc Estimated GFR POC Glucose 285 H 173 H Random Glucose Calcium Procedures Date of Service Date of Service: 09/26/23 Arterial Line Size (Gauge): 20 Progress Note: A&P Assessment and plan (1) Necrotizing soft tissue infection: Status: Acute Assessment and Plan: Open wound clean, granulating well Dressing changes done with Mai moreno wound care nurse Dakin solution dressings applied Continue same wound care regimen If he stays in the hospital, plan to do wound VAC next week If he goes to a intermediate, continue with daily Dakin's solution dressings Time Spent With Patient Time: Total time managing care of this patient today ____ minutes. Quality Stroke Does the patient have a stroke diagnosis?: No VTE Prior VTE?: No VTE Risk Level:: Medical - moderate - high VTE Device Contraindication: N/A - Device Ordered VTE Drug Contraindication: Treatment Not Tolerated
[2023-09-26 11:00] LABS: Glucose, Whole Blood 257 mg/dL (60-115)
--- NOTE | 2023-09-26 11:55 | HO.WOUND ---
Wound Consult: Follow up 48yr old?male admitted to [facility] on 09/13/23 with Cuate's Gangrene s/p multiple debridements with Dr. Matthew from General Surgery - See progress notes and H&P for detailed history.? Wound consult follow up for Left buttock wound and Right Thigh surgical site.? Patient agreeable to assessment and photo documentation.? Patient medicated by direct care nurse prior to dressing change - see MAR for details. Changed today with Dr. Matthew Right Posterior and lateral Thigh Etiology: ??S/P Surgical debridement for Fourniers Gangrene Wound Bed: improving wound bed - 75% pale pink tissue 25% yellow necrotic tissue (some is adipose tissue) Drainage / Odor: serosang persaud yellow drainage noted on dressing when removed - no odor noted Edges: ? irregular but well defined Stella wound: ?Intact - No erythema noted - No Induration, Fluctuance or Warmth noted Pain: pain reported when dressing change performed Goals of Treatment: ? Continue Dakins for continued debridement - Future candidate for wound vac placement - discussed with Dr. Matthew - will continue to assess wound bed for wound vac readiness. Dakins used in todays dressing change. discussed with direct care nurse to pass on in reports twice a day dakins dressings will aid in cleaning up the slough noted. Left buttock / skin fold - MASD - noted for irregular edges - improving adherent yellow slough - periwound is intact no erythema or induration noted. Continue with Triad and off loading. Agility Pulsate bed ordered for patient comfort and envelopment - arrived direct care team will transition patient to bed. Inpatient will continue to follow - no new topical recommendations needed at this time. Recommendations: 1. Turn and Reposition every 2 hours and as needed for patient comfort.? Use pillows or wedges to support off loading positions. 2. Off Load all bony prominences with use of pillows and heel boots if needed.? Apply Preventative foams where needed. ? 3. Monitor for incontinence and moisture control, use barrier creams when needed for prevention and treatment. 4. Provide adequate and supplemental nutrition.? 5. Continue low air loss mattress. 6. When applicable maintain blood glucose levels per Providers order. 7. Left Buttock / Skin Fold - Cleanse with PH balanced wipes. Apply thin layer of Triad to wound bed - only pat and dab no scrub and rub when soiling occurs. Reapply thin layer PRN after each episode of incontinence. 8. Right Buttock / Thigh - Cleanse and irrigate with NS. Lightly pack wound bed and tunnels with Dakins Moist gauze roll. Cover with dry gauze pad followed by ABD pads. Change twice a day. Re-consult wound care Nurse for wound deterioration or wound changes.
[2023-09-26] MEDS: Enoxaparin Sodium 40 MG/0.4 ML SYRINGE SUBCUT (12:11)
[2023-09-26] MEDS: Sodium Hypochlorite 0.125% 473 ML SOLUTION 1 APPL TOPICAL (12:13)
--- NOTE | 2023-09-26 12:19 | P.PNIM_ITS ---
Subjective Subjective Date of Service: 09/26/23 Interval History: Complaining of lower abdominal pain since last evening, had a bowel movement this morning, denies nausea, no vomiting, tolerating diet, no other acute pain, no complain of shortness of breath, no chest pain, feels depressed. Review of Systems All other system reviewed and are negative. Physical Exam 2 Vital Signs: Vital Signs: Last Vital Signs Temp 97.5 F 09/26/23 11:01 Pulse 69 09/26/23 11:01 Resp 20 09/26/23 11:01 BP 134/61 09/26/23 11:01 Pulse Ox 98 09/26/23 11:01 O2 Del Method Nasal Cannula 09/26/23 11:01 O2 Flow Rate 5 09/26/23 11:01 FiO2 30 09/20/23 11:33 BMI result Body Mass Index 50.2 Const: Other: General awake alert, in no acute distress. Neck no JVD. CVS regular rate rhythm, Respiratory lungs clear to auscultation, no respiratory distress, no wheeze, no rhonchi. Gastrointestinal abdomen soft, mild right lower abdominal tenderness, no rebound, no rigidity, no palpable mass, bowel sounds audible. Dressing to lower buttock, proximal thigh in place Extremities no edema. Neuro awake alert x3 Objective Data Active Medications Acetaminophen (Acetaminophen Oral Liquid 650 Mg/20.3 Ml Solution) 650 mg PO Q4H PRN PRN Reason: Fever Last Admin: 09/21/23 14:05 Dose: 650 mg Documented By: CECIL Cyanocobalamin (Cyanocobalamin (Vitamin B-12) 1,000 Mcg Tablet) 1,000 mcg PO DAILY [facility] Last Admin: 09/26/23 08:38 Dose: 1,000 mcg Documented By: RENATO Enoxaparin Sodium (Enoxaparin Sodium 40 Mg/0.4 Ml Syringe) 40 mg SUBCUT Q24H [facility] Last Admin: 09/26/23 12:11 Dose: 40 mg Documented By: RENATO Glucose (Glucose Gel 15 Gm Gel..Gram.) 15 gm PO Q15M PRN; Protocol PRN Reason: per Hypoglycemia Standing Ord. Hydromorphone HCl (Hydromorphone Hcl 0.5 Mg/0.5 Ml Syringe) 0.5 mg IVPUSH Q3H PRN; Protocol PRN Reason: moderate pain Last Admin: 09/26/23 08:51 Dose: 0.5 mg Documented By: RENATO Dextrose (D10) 250 mls @ 750 mls/hr IV Q15M PRN PRN Reason: per Hypoglycemia Standing Ord. Insulin Glargine (Insulin Glargine,Hum.Rec.Anlog 100 Unit/Ml 10 Ml Vial) 20 unit SUBCUT BID [facility] Last Admin: 09/26/23 08:37 Dose: 20 unit Documented By: RENATO Insulin Human Lispro (Insulin Lispro 100 Unit/Ml 3 Ml Vial) 0 unit SUBCUT QIDACHS [facility]; Protocol Last Admin: 09/26/23 12:10 Dose: 10 unit Documented By: RENATO Naloxone HCl (Naloxone Hcl 0.4 Mg/Ml Vial) 0.2 mg IVPUSH Q2M PRN PRN Reason: Excessive sedation or RR < 8 Sertraline HCl (Sertraline Hcl 100 Mg Tablet) 100 mg PO DAILY [facility] Last Admin: 09/26/23 08:38 Dose: 100 mg Documented By: RENATO Sodium Chloride (0.9 % Sodium Chloride Flush 3 Ml Syringe) 3 ml IVFLUSH QSHIFT [facility] Last Admin: 09/26/23 08:38 Dose: 3 ml Documented By: RENATO Sodium Hypochlorite (Sodium Hypochlorite 0.125% 473 Ml Solution) 1 appl TOPICAL DAILY [facility] Last Admin: 09/26/23 12:14 Dose: Not Given Documented By: REANTO Non-Admin Reason: duplicate order Sodium Hypochlorite (Sodium Hypochlorite 0.125% 473 Ml Solution) 1 appl TOPICAL DAILY [facility] Last Admin: 09/26/23 12:13 Dose: 1 appl Documented By: RENATO Labs 09/24/23 05:39 09/25/23 09:08 Labs: Laboratory Results - last 24 hr 09/25/23 09/25/23 09/26/23 15:59 20:06 06:53 POC Glucose 220 H 285 H 173 H 09/26/23 10:48 POC Glucose 257 H Assessment and Plan (1) Hypernatremia: Status: Acute (2) Type 2 diabetes mellitus: Status: Acute (3) Necrotizing soft tissue infection: Status: Acute Plan 48M PMH DM, morbid obesity, htn, mood disorder, KIM, presented 09/14/23 with perneal erythema, pain, 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 admitted to ICU, treated with vanco, zosyn, clinda, pressor support, insulin. underwent debridement 09/14/23 and 09/17/23. patient eventually extubated, weaned off pressors. downgraded 09/21/23. course complicated by acute blood loss and inflammatory anemia requiring transfusions, hypernatremia. 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 and IV meropenem was on 09/21 to 09/25 s/p iv vanc, and zosyn, cultures negative place on by mouth doxy and Augmentin for 1 week started on 09/25 s/p debridements, gen surg following, continue dressing change as per General surgery and wound nurse, frequent position change aim for better blood sugar control No fevers , WBC trending down, blood cultures negative Abdominal pain likely due to antibiotics, moving bowels follow clinical course. At [facility] DM with DKa dka resolved, elevated blood sugars slowly improving Lantus to 20 units b.i.d. and adjusted insulin sliding scale, follow blood sugar closely acute hypoxic respiratory failure due to sepsis extubated successfully, continue to wean o2 mohini resolved acute hypokalemia repleted and resolved acute hypernatremia Sodium improved to 147 will continue to push by mouth fluid , follow BMP icu/critical illness myopathy Diet upgraded to thin liquids and modified solids PT rec LTAC acute blood loss and inflammatory anemia stable hematocrit mood disorder on sertraline restarted at half dose, all other home medications on hold. Consult psychiatry to address home medications htn stable BP ,lisinopril on hold morbid obesity weight loss recommended KIM cpap at night dvt prophylaxis - lovenox full code reason for continued hospitalization:severe electrolyte abnormalities, wound care, on IV antibiotics. Quality Stroke Does the patient have a stroke diagnosis?: No VTE Prior VTE?: No VTE Risk Level:: Medical - moderate - high VTE Device Contraindication: N/A - Device Ordered VTE Drug Contraindication: Treatment Not Tolerated
[2023-09-26] MEDS: Doxycycline Monohydrate 100 MG CAPSULE PO ×2 (13:03→21:19)
[2023-09-26] MEDS: Amoxicillin/Potassium Clav 875 MG TABLET PO ×2 (13:03→21:19)
--- NOTE | 2023-09-26 13:20 | MHC.SL.SWA ---
Risk of Aspiration Due to: Hx of Recent Extubation Dysphasia Diet Status: NO CHANGE Liquid Consistency and Strategies for Safe Swallow: Liquid Intake Recommendation: Thin Liquid Intake Strategies: Small Sips Solid Food Consistency: Dietary Recommendations: Chopped/Advanced (NDD3) Oral Medication Intake: Whole with Liquid/Puree Please contact the pharmacy regarding appropriate crushable or liquid drug formulations that are available whenever modified delivery is recommended. Compensatory Strategies and Precautions to be Taken for Safe Swallow: Sitting Upright (90 deg) Small Bites and Sips Alternate Liquids/Solids Rate of Ingestion Change Supervision While Eating and Drinking for Safe Swallow: Intermittent Supervision Foods to Avoid: Mixed textures Swallowing Recommended Treatments: Compens. Strategy Educat. Recommendation for Speech: Inpatient Speech Therapy Comment: Pt tolerated mixed consistency on this date; he mixed chopped broccoli in with squash bisque. Recommend pt continue w/ CHOPPED/ADVANCED SOLIDS (NDD3) and THIN LIQUIDS. MEDS WHOLE with LIQUID or PUREE - as preferred. Ensure adequate positioning for meals. Pt has limited bed mobility. YEAST SUPERVISOR will follow-up x1 to monitor tolerance of diet upgrade. Frequency/Duration: M-F PRN Wire Lather Clinican/Clinical Fellow: No Supervisory Statement: I have reviewed and agree with the student/clinical fellow's documentation: N/A Speech Language Pathologist: Lois Benoit M.A., [facility]
--- NOTE | 2023-09-26 13:41 | P.PNNP_ITS ---
Subjective Subjective Date of Service: 09/26/23 Interval history: Complaining of lower abdominal pain since last evening, had a bowel movement this morning, denies nausea, no vomiting, tolerating diet, no other acute pain, no complain of shortness of breath, no chest pain, feels depressed. Physical Exam 2 Vital Signs: Vital Signs: Last Vital Signs Temp 97.5 F 09/26/23 11:01 Pulse 69 09/26/23 11:01 Resp 20 09/26/23 11:01 BP 134/61 09/26/23 11:01 Pulse Ox 98 09/26/23 11:01 O2 Del Method Nasal Cannula 09/26/23 11:01 O2 Flow Rate 5 09/26/23 11:01 FiO2 30 09/20/23 11:33 BMI result Body Mass Index 50.2 Const: General: no acute distress Orientation/consciousness: patient oriented x3 Eyes: EOM: EOMs intact bilaterally Resp: Auscultation: diminished lung sounds Cardio: Rate: regular rate GI: Palpation (GI): Soft to palpation Neuro: General: patient oriented x3 Objective Data Labs 09/24/23 05:39 09/25/23 09:08 Labs: Laboratory Results - last 24 hr 09/25/23 09/25/23 09/26/23 15:59 20:06 06:53 POC Glucose 220 H 285 H 173 H 09/26/23 10:48 POC Glucose 257 H Microbiology Microbiology Results: Microbiology 09/14/23 10:56 Blood - Venous Blood Culture - Final No growth after 5 days. 09/14/23 10:40 Blood - Venous Blood Culture - Final No growth after 5 days. Procedures Date of Service Date of Service: 09/26/23 Arterial Line Size (Gauge): 20 Assessment & Plan Assessment and plan (1) Hypernatremia: Status: Acute Plan Had significant water deficit Treated with IV D5W & PO free water Serum sodium improved; Corrected with D5W Needs to keep up with PO free water No labs today C/W rest of current management Time Spent With Patient Time: Total time managing care of this patient today ____ minutes. Progress Note: Quality Stroke Does the patient have a stroke diagnosis?: No
[2023-09-26 15:25] LABS: Glucose, Whole Blood 277 mg/dL (60-115)
[2023-09-26 20:01] LABS: Glucose, Whole Blood 190 mg/dL (60-115)
[2023-09-26] MEDS: Acetaminophen Oral Liquid 650 MG/20.3 ML SOLUTION PO (21:18)
[2023-09-27] VITALS (7 sets, daily range): BP systolic 120–140; BP diastolic 58–62; PULSE 65–86; RESP 19–20; TEMP 36.1–36.6; O2SAT 96–100
[2023-09-27 06:40] LABS: Hematocrit 26.4 % (42.0-52.0); Hemoglobin 8.2 g/dl (14.0-18.0); Mean Corpuscular HGB Conc 31.1 g/dl (31.0-36.0); Mean Corpuscular Volume 93.3 fL (80.0-98.0); Mean Platelet Volume 9.6 fL (9.4-12.4); NRBC Pct Auto 0.3 /100WBC (0.0-0.2); Platelet Count 370 X10*3/uL (160-400); Red Blood Count 2.83 X10*6/uL (4.60-5.80); Red Cell Distribution Width 16.8 % (11.0-16.0); White Blood Count 12.2 X10*3/uL (4.8-10.8)
[2023-09-27 06:48] LABS: Anion Gap 14 (12-20); Blood Urea Nitrogen 18 mg/dL (9-16); Calcium 8.4 mg/dL (8.4-10.2); Carbon Dioxide 26 mmol/L (22-29); Chloride 106 mmol/L (96-108); Creatinine Clr Calc Pharmacy 200.4; Estimated Glomerular Filt Rate > 60; Glucose Random 187 mg/dL (60-115); Sodium 143 mmol/L (135-145)
[2023-09-27 07:57] LABS: Glucose, Whole Blood 178 mg/dL (60-115)
[2023-09-27] MEDS: Cyanocobalamin (Vitamin B-12) 1,000 MCG TABLET 1000 MCG PO (08:13)
[2023-09-27] MEDS: Amoxicillin/Potassium Clav 875 MG TABLET PO ×2 (08:13→21:19)
[2023-09-27] MEDS: Doxycycline Monohydrate 100 MG CAPSULE PO ×2 (08:13→21:19)
[2023-09-27] MEDS: Sertraline HCL 100 MG TABLET PO (08:13)
[2023-09-27] MEDS: Insulin Lispro 100 UNIT/ML 3 ML VIAL SUBCUT ×3 (08:14→21:21)
[2023-09-27] MEDS: Insulin Glargine,Hum.rec.anlog 100 UNIT/ML 10 ML VIAL 20 UNIT SUBCUT ×2 (08:14→21:22)
[2023-09-27] MEDS: HYDROmorphone HCl 0.5 MG/0.5 ML SYRINGE IVPUSH ×2 (08:14→11:40)
[2023-09-27] MEDS: 0.9 % Sodium Chloride Flush 3 ML SYRINGE IVFLUSH ×3 (08:14→21:22)
[2023-09-27] MEDS: Potassium Chloride Packet 20 MEQ PACKET 40 MEQ PO (09:14)
[2023-09-27] MEDS: Sodium Hypochlorite 0.125% 473 ML SOLUTION 1 APPL TOPICAL ×2 (09:17→21:51)
[2023-09-27 11:46] LABS: Glucose, Whole Blood 256 mg/dL (60-115)
[2023-09-27] MEDS: Enoxaparin Sodium 40 MG/0.4 ML SYRINGE SUBCUT (11:53)
--- NOTE | 2023-09-27 13:09 | MHC.SLORD ---
Speech Language Pathology Order Status: Patient checked on after lunch. Patient w/abdominal discomfort today, had ordered soup and ensure for meal, drank only the ensure. No difficulties with swallow. [employer] will continue to follow.
--- NOTE | 2023-09-27 14:58 | P.PNIM_ITS ---
Subjective Subjective Date of Service: 09/27/23 Interval History: Offers no acute controls blood sugars are better controlled noted to have low potassium of 3, sitting out of bed to chair and feeling better felt little dizzy with transfers, not on home O2 currently on 2 L of oxygen provide history of chronic depression, denies anxiety. Review of Systems All other system reviewed and negative. Physical Exam 2 Vital Signs: Vital Signs: Last Vital Signs Temp 97.9 F 09/27/23 12:00 Pulse 86 09/27/23 12:00 Resp 20 09/27/23 12:00 BP 129/61 09/27/23 12:00 Pulse Ox 96 09/27/23 12:00 O2 Del Method Nasal Cannula 09/27/23 12:00 O2 Flow Rate 5 09/27/23 12:00 FiO2 30 09/20/23 11:33 BMI result Body Mass Index 50.2 Const: Other: General awake alert, in no acute distress. Neck no JVD. CVS regular rate rhythm, Respiratory lungs clear to auscultation, no respiratory distress, no wheeze, no rhonchi. Gastrointestinal abdomen soft, mild right lower abdominal tenderness, no rebound, no rigidity, no palpable mass, bowel sounds audible. Dressing to lower buttock, proximal thigh in place Extremities no edema. Neuro awake alert x3 Objective Data Active Medications Acetaminophen (Acetaminophen Oral Liquid 650 Mg/20.3 Ml Solution) 650 mg PO Q4H PRN PRN Reason: Fever Last Admin: 09/26/23 21:18 Dose: 650 mg Documented By: SONDRA Amoxicillin/Clavulanate Potassium (Amoxicillin/Potassium Clav 875 Mg Tablet) 875 mg PO BID [facility] Last Admin: 09/27/23 08:13 Dose: 875 mg Documented By: OMAR Cyanocobalamin (Cyanocobalamin (Vitamin B-12) 1,000 Mcg Tablet) 1,000 mcg PO DAILY [facility] Last Admin: 09/27/23 08:13 Dose: 1,000 mcg Documented By: OMAR Doxycycline Monohydrate (Doxycycline Monohydrate 100 Mg Capsule) 100 mg PO BID [facility] Last Admin: 09/27/23 08:13 Dose: 100 mg Documented By: OMAR Enoxaparin Sodium (Enoxaparin Sodium 40 Mg/0.4 Ml Syringe) 40 mg SUBCUT Q24H [facility] Last Admin: 09/27/23 11:53 Dose: 40 mg Documented By: OMAR Glucose (Glucose Gel 15 Gm Gel..Gram.) 15 gm PO Q15M PRN; Protocol PRN Reason: per Hypoglycemia Standing Ord. Hydromorphone HCl (Hydromorphone Hcl 0.5 Mg/0.5 Ml Syringe) 0.5 mg IVPUSH Q3H PRN; Protocol PRN Reason: moderate pain Last Admin: 09/27/23 11:40 Dose: 0.5 mg Documented By: OMAR Dextrose (D10) 250 mls @ 750 mls/hr IV Q15M PRN PRN Reason: per Hypoglycemia Standing Ord. Insulin Glargine (Insulin Glargine,Hum.Rec.Anlog 100 Unit/Ml 10 Ml Vial) 20 unit SUBCUT BID [facility] Last Admin: 09/27/23 08:14 Dose: 20 unit Documented By: OMAR Insulin Human Lispro (Insulin Lispro 100 Unit/Ml 3 Ml Vial) 0 unit SUBCUT QIDACHS [facility]; Protocol Last Admin: 09/27/23 11:53 Dose: 12 unit Documented By: OMAR Naloxone HCl (Naloxone Hcl 0.4 Mg/Ml Vial) 0.2 mg IVPUSH Q2M PRN PRN Reason: Excessive sedation or RR < 8 Sertraline HCl (Sertraline Hcl 100 Mg Tablet) 100 mg PO DAILY [facility] Last Admin: 09/27/23 08:13 Dose: 100 mg Documented By: OMAR Sodium Chloride (0.9 % Sodium Chloride Flush 3 Ml Syringe) 3 ml IVFLUSH QSHIFT [facility] Last Admin: 09/27/23 08:14 Dose: 3 ml Documented By: OMAR Sodium Hypochlorite (Sodium Hypochlorite 0.125% 473 Ml Solution) 1 appl TOPICAL DAILY [facility] Last Admin: 09/27/23 09:18 Dose: Not Given Documented By: OMAR Non-Admin Reason: Duplicate Order Sodium Hypochlorite (Sodium Hypochlorite 0.125% 473 Ml Solution) 1 appl TOPICAL DAILY [facility] Last Admin: 09/27/23 09:17 Dose: 1 appl Documented By: OMAR Labs 09/27/23 06:11 09/27/23 06:11 Labs: Laboratory Results - last 24 hr 09/26/23 09/26/23 09/27/23 15:21 19:54 06:11 MCV 93.3 MCH 29.0 MCHC 31.1 RDW 16.8 H Plt Count 370 MPV 9.6 Absolute Nucleated RBC 0.040 H Nucleated RBC % (auto) 0.3 H Anion Gap 14 Estim Creat Clear Calc 200.4 Estimated GFR > 60 POC Glucose 277 H 190 H Random Glucose 187 H Calcium 8.4 09/27/23 09/27/23 07:54 11:42 MCV MCH MCHC RDW Plt Count MPV Absolute Nucleated RBC Nucleated RBC % (auto) Anion Gap Estim Creat Clear Calc Estimated GFR POC Glucose 178 H 256 H Random Glucose Calcium Assessment and Plan (1) Type 2 diabetes mellitus: Status: Acute (2) Hypernatremia: Status: Acute (3) Necrotizing soft tissue infection: Status: Acute Plan 48M PMH DM, morbid obesity, htn, mood disorder, KIM, presented 09/14/23 with perneal erythema, pain, 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 admitted to ICU, treated with vanco, zosyn, clinda, pressor support, insulin. underwent debridement 09/14/23 and 09/17/23. patient eventually extubated, weaned off pressors. downgraded 09/21/23. course complicated by acute blood loss and inflammatory anemia requiring transfusions, hypernatremia. 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 and IV meropenem was on 09/21 to 09/25 s/p iv vanc, and zosyn, cultures negative place on by mouth doxy and Augmentin for 1 week started on 09/25 s/p debridements, gen surg following, continue dressing change as per General surgery and wound nurse, frequent position change No fevers , WBC trending down, blood cultures negative DM with DKa dka resolved, elevated blood sugars slowly improving Lantus 20 units b.i.d. and insulin sliding scale, better blood sugar control Acute Hypokalemia likely due to GI loss will replete and follow labs. acute hypoxic respiratory failure due to sepsis extubated successfully, continue to wean o2 mohini resolved acute hypokalemia repleted and resolved acute hypernatremia Sodium improved to 147 will continue to push by mouth fluid , follow BMP icu/critical illness myopathy Diet upgraded to thin liquids and modified solids PT rec LTAC acute blood loss and inflammatory anemia stable hematocrit mood disorder on sertraline restarted at half dose, all other home medications on hold. Consult psychiatry to address home medications provide history of chronic depression denies anxiety. htn stable BP ,lisinopril on hold morbid obesity weight loss recommended KIM cpap at night dvt prophylaxis - lovenox full code reason for continued hospitalization:severe electrolyte abnormalities, wound care, on IV antibiotics. Quality Stroke Does the patient have a stroke diagnosis?: No VTE Prior VTE?: No VTE Risk Level:: Medical - moderate - high VTE Device Contraindication: N/A - Device Ordered VTE Drug Contraindication: Treatment Not Tolerated
--- NOTE | 2023-09-27 15:00 | HO.WOUND ---
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 Matthew from General Surgery - See progress notes and H&P for detailed history.? Wound consult follow up for Left buttock wound and Right Thigh surgical site.? Patient agreeable to assessment and photo documentation.? Patient medicated by direct care nurse prior to dressing change - see MAR for details. Right Posterior and lateral Thigh Etiology: ??S/P Surgical debridement for Fourniers Gangrene Wound Bed: improving wound bed - 80% pale pink tissue 20% yellow necrotic tissue (some is adipose tissue) Drainage / Odor: serosang persaud yellow drainage noted on dressing when removed - no odor noted Edges: ? irregular but well defined Stella wound: ?Intact - No erythema noted - No Induration, Fluctuance or Warmth noted Pain: less pain reported when dressing change performed Goals of Treatment: ? Continue Dakins for continued debridement - Future candidate for wound vac placement - discussed with Dr. Matthew - will continue to assess wound bed for wound vac readiness. Dakins used in todays dressing change. discussed with direct care nurse to pass on in reports twice a day dakins dressings will aid in cleaning up the slough noted. Left buttock / skin fold - MASD - noted for irregular edges - improving adherent yellow slough - periwound is intact no erythema or induration noted. Continue with Triad and off loading. Agility Pulsate bed ordered for patient comfort and envelopment - patient tolerating well. Today patient up up to chair for portion of the day. Advised for limited continous sit times no greater than one hour, waffle cushion to recliner chair. Inpatient wound care nurse and Dr. Mattehw unavailable until Sunday / Sunday direct care team will continue to perform topical dressing changes. Should patient remain inpatient early next week will consider wound vac placement. Inpatient will continue to follow - no new topical recommendations needed at this time. Recommendations: 1. Turn and Reposition every 2 hours and as needed for patient comfort.? Use pillows or wedges to support off loading positions. 2. Off Load all bony prominences with use of pillows and heel boots if needed.? Apply Preventative foams where needed. ? 3. Monitor for incontinence and moisture control, use barrier creams when needed for prevention and treatment. 4. Provide adequate and supplemental nutrition.? 5. Continue low air loss mattress. 6. When applicable maintain blood glucose levels per Providers order. 7. Left Buttock / Skin Fold - Cleanse with PH balanced wipes. Apply thin layer of Triad to wound bed - only pat and dab no scrub and rub when soiling occurs. Reapply thin layer PRN after each episode of incontinence. 8. Right Buttock / Thigh - Cleanse and irrigate with NS. Lightly pack wound bed and tunnels with Dakins Moist gauze roll. Cover with dry gauze pad followed by ABD pads. Change twice a day. Re-consult wound care Nurse for wound deterioration or wound changes.
--- NOTE | 2023-09-27 15:49 | HO.WOUND ---
Wound Consult: Follow up 48yr old?male admitted to [facility] on 09/13/23 with Cuate's Gangrene s/p multiple debridements with Dr. Matthew from General Surgery - See progress notes and H&P for detailed history.? Wound consult follow up for Left buttock wound and Right Thigh surgical site.? Patient agreeable to assessment and photo documentation.? Patient medicated by direct care nurse prior to dressing change - see MAR for details. Right Posterior and lateral Thigh Etiology: ??S/P Surgical debridement for Fourniers Gangrene Measurement: 15cm x 27cm x max depth of 7cm at the 3 o'clock location Wound Bed: improving wound bed - 80% pale pink tissue 20% yellow necrotic tissue (some is adipose tissue noted) Drainage / Odor: serosang persaud yellow drainage noted on dressing when removed - no odor noted Edges: ? irregular but well defined Stella wound: ?Intact - No erythema noted - No Induration, Fluctuance or Warmth noted Pain: less pain reported when dressing change performed Goals of Treatment: ? Continue Dakins for continued debridement - Future candidate for wound vac placement - discussed with Dr. Matthew - will continue to assess wound bed for wound vac readiness. Dakins used in todays dressing change. discussed with direct care nurse to pass on in reports twice a day dakins dressings will aid in cleaning up the slough noted. Left buttock / skin fold - Measurement: 1cm x 3.5cm x 0.1cm MASD - noted for irregular edges - improving adherent yellow slough - periwound is intact no erythema or induration noted. Continue with Triad and off loading. Agility Pulsate bed ordered for patient comfort and envelopment - patient tolerating well. Today patient up up to chair for portion of the day. Advised for limited continous sit times no greater than one hour, waffle cushion to recliner chair. Inpatient wound care nurse and Dr. Matthew unavailable until Sunday / Sunday direct care team will continue to perform topical dressing changes. Should patient remain inpatient early next week will consider wound vac placement. Inpatient will continue to follow - no new topical recommendations needed at this time. Recommendations: 1. Turn and Reposition every 2 hours and as needed for patient comfort.? Use pillows or wedges to support off loading positions. 2. Off Load all bony prominences with use of pillows and heel boots if needed.? Apply Preventative foams where needed. ? 3. Monitor for incontinence and moisture control, use barrier creams when needed for prevention and treatment. 4. Provide adequate and supplemental nutrition.? 5. Continue low air loss mattress. 6. When applicable maintain blood glucose levels per Providers order. 7. Left Buttock / Skin Fold - Cleanse with PH balanced wipes. Apply thin layer of Triad to wound bed - only pat and dab no scrub and rub when soiling occurs. Reapply thin layer PRN after each episode of incontinence. 8. Right Buttock / Thigh - Cleanse and irrigate with NS. Lightly pack wound bed and tunnels with Dakins Moist gauze roll. Cover with dry gauze pad followed by ABD pads. Change twice a day. Re-consult wound care Nurse for wound deterioration or wound changes.
[2023-09-27 16:27] LABS: Glucose, Whole Blood 148 mg/dL (60-115)
[2023-09-27] MEDS: Potassium Chloride Packet 20 MEQ PACKET PO (16:53)
[2023-09-27] MEDS: oxyCODONE HCl Immed Release 5 MG TABLET PO (16:56)
[2023-09-27 19:59] LABS: Glucose, Whole Blood 238 mg/dL (60-115)
[2023-09-28] VITALS (9 sets, daily range): BP systolic 110–137; BP diastolic 56–67; PULSE 73–87; RESP 14–20; TEMP 36.3–37.4; O2SAT 95–100
[2023-09-28] MEDS: oxyCODONE HCl Immed Release 5 MG TABLET PO ×2 (01:18→14:27)
--- NOTE | 2023-09-28 01:21 | PC.NURSE ---
Addendum entered by Rangel Carter RN 09/28/23 06:38: ambulated to bathroom and voided 600 mL CYU Original Note: pt ambulated max assist with walker to bathroom and urinated 800 mL dark yellow urine.
[2023-09-28 07:24] LABS: Anion Gap 14 (12-20); Blood Urea Nitrogen 16 mg/dL (9-16); Calcium 8.5 mg/dL (8.4-10.2); Carbon Dioxide 26 mmol/L (22-29); Chloride 110 mmol/L (96-108); Creatinine Clr Calc Pharmacy 230.7; Estimated Glomerular Filt Rate > 60; Glucose Random 109 mg/dL (60-115); Potassium 3.5 mmol/L (3.3-5.1); Sodium 146 mmol/L (135-145)
[2023-09-28 07:42] LABS: Glucose, Whole Blood 160 mg/dL (60-115)
[2023-09-28] MEDS: Insulin Lispro 100 UNIT/ML 3 ML VIAL SUBCUT ×4 (08:44→21:29)
[2023-09-28] MEDS: Doxycycline Monohydrate 100 MG CAPSULE PO ×2 (08:45→21:24)
[2023-09-28] MEDS: Insulin Glargine,Hum.rec.anlog 100 UNIT/ML 10 ML VIAL 20 UNIT SUBCUT ×2 (08:45→21:24)
[2023-09-28] MEDS: 0.9 % Sodium Chloride Flush 3 ML SYRINGE IVFLUSH ×3 (08:45→21:30)
[2023-09-28] MEDS: Amoxicillin/Potassium Clav 875 MG TABLET PO ×2 (08:45→21:24)
[2023-09-28] MEDS: Cyanocobalamin (Vitamin B-12) 1,000 MCG TABLET 1000 MCG PO (08:45)
[2023-09-28] MEDS: Sertraline HCL 100 MG TABLET PO (08:45)
[2023-09-28] MEDS: Sodium Hypochlorite 0.125% 473 ML SOLUTION 1 APPL TOPICAL (08:47)
--- NOTE | 2023-09-28 10:12 | MHC.CLN ---
F/U PO INTAKE 75-100% DIET RX: 2200DM CHOPPED -APPROPRIATE PT RECEIVING ENSURE MAX BID TO PROVIDE 300KCALS, 60G PROTEIN MONITOR PO INTAKE AND ENCOURAGE SUPPLEMENTS RD TO FOLLOW WEEKLY
--- NOTE | 2023-09-28 10:58 | MHC.CM.PN ---
[facility] has supplied [facility] with all requested documentation and [facility] will be attempting insurance auth. DC is not anticipated until 10/01/2023. CM will follow.
[2023-09-28 11:19] LABS: Glucose, Whole Blood 255 mg/dL (60-115)
[2023-09-28] MEDS: Enoxaparin Sodium 40 MG/0.4 ML SYRINGE SUBCUT (11:26)
--- NOTE | 2023-09-28 11:51 | PM.PSYCN ---
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 admitted to ICU, treated with vanco, zosyn, clinda, pressor support, insulin. underwent debridement 09/14/23 and 09/17/23. patient eventually extubated, weaned off pressors. downgraded 09/21/23. course complicated by acute blood loss and inflammatory anemia requiring transfusions, hypernatremia. 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 Pt seen for psychiatric cinsultation due to hx of depression and many psych medications on home list; pt sees Dr Segun Eagle in [place] on [facility] [phone] and Kristi Bae at [address] [place] [address] . I could not reach either by phone today. Pt states he is being treated fro depression. he denies Bipolar Disorder or schizophrenia. He reports feelling depressed but focused on physical recovery; he denies SI ro Hi. he denies A/V hallucinations. he denies any anxiety. He also reports sleeping well but notes that he does sleep during the day and he thinks its just because he is recovering from surgery/infection. He is agreeable to an increase in zoloft. he does not ask for any of his other home medications. I asked him last time her saw his psychiatrist Dr Mckenzie and he says its been a long time. Past Psychiatric History: hx of depression ; home medications list is very long: clonazepam 1mg tid, gabapentin 100mg bid, mirtazepine unknown dose at bedtime, geodon 40mg daily Medical Evaluation Reviewed: Yes [facility] Medical History Necrotizing soft tissue infection Soft tissue infection Morbid obesity Back pain KIM (obstructive sleep apnea) Anxiety and depression Elevated WBCs Type 2 diabetes mellitus HTN (hypertension) Surgical History Hx of oral surgery Diagnostics Vital Signs (24Hr): Vital Signs - 24 hr 09/27/23 12:00 09/27/23 16:00 09/27/23 19:45 Temperature 97.9 F 97.7 F 97.5 F Pulse Rate 86 72 75 Respiratory Rate 20 20 20 Blood Pressure 129/61 140/62 H 122/58 L Pulse Oximetry 96 100 100 Oxygen Delivery Method Nasal Cannula Room Air Nasal Cannula Oxygen Flow Rate 5 3.5 09/27/23 23:59 09/28/23 01:32 09/28/23 03:36 Temperature 97.4 F 97.7 F Pulse Rate 72 75 Respiratory Rate 20 20 Blood Pressure 131/60 124/60 Pulse Oximetry 100 97 98 Oxygen Delivery Method Nasal Cannula Nasal Cannula Nasal Cannula Oxygen Flow Rate 2 2 2 09/28/23 04:00 09/28/23 07:10 09/28/23 10:25 Temperature 97.7 F 97.4 F Pulse Rate 73 87 87 Respiratory Rate 18 17 Blood Pressure 111/57 L 137/67 137/67 Pulse Oximetry 96 95 95 Oxygen Delivery Method Nasal Cannula Nasal Cannula Oxygen Flow Rate 2 2 09/28/23 11:05 Temperature 97.8 F Pulse Rate 84 Respiratory Rate 18 Blood Pressure 128/60 Pulse Oximetry 96 Oxygen Delivery Method Room Air Oxygen Flow Rate BMI result Body Mass Index 50.2 Labs 09/27/23 06:11 09/28/23 06:09 Labs: Laboratory Results - last 48 hr 09/26/23 09/26/23 09/27/23 15:21 19:54 06:11 WBC 12.2 H RBC 2.83 L Hgb 8.2 L Hct 26.4 L MCV 93.3 MCH 29.0 MCHC 31.1 RDW 16.8 H Plt Count 370 MPV 9.6 Absolute Nucleated RBC 0.040 H Nucleated RBC % (auto) 0.3 H Sodium 143 Potassium 3.0 L D Chloride 106 Carbon Dioxide 26 Anion Gap 14 BUN 18 H Creatinine 0.61 Estim Creat Clear Calc 200.4 Estimated GFR > 60 POC Glucose 277 H 190 H Random Glucose 187 H Calcium 8.4 09/27/23 09/27/23 09/27/23 07:54 11:42 16:23 WBC RBC Hgb Hct MCV MCH MCHC RDW Plt Count MPV Absolute Nucleated RBC Nucleated RBC % (auto) Sodium Potassium Chloride Carbon Dioxide Anion Gap BUN Creatinine Estim Creat Clear Calc Estimated GFR POC Glucose 178 H 256 H 148 H Random Glucose Calcium 09/27/23 09/28/23 09/28/23 19:54 06:09 07:12 WBC RBC Hgb Hct MCV MCH MCHC RDW Plt Count MPV Absolute Nucleated RBC Nucleated RBC % (auto) Sodium 146 H Potassium 3.5 Chloride 110 H Carbon Dioxide 26 Anion Gap 14 BUN 16 Creatinine 0.53 Estim Creat Clear Calc 230.7 Estimated GFR > 60 POC Glucose 238 H 160 H Random Glucose 109 Calcium 8.5 09/28/23 11:09 WBC RBC Hgb Hct MCV MCH MCHC RDW Plt Count MPV Absolute Nucleated RBC Nucleated RBC % (auto) Sodium Potassium Chloride Carbon Dioxide Anion Gap BUN Creatinine Estim Creat Clear Calc Estimated GFR POC Glucose 255 H Random Glucose Calcium Imaging Radiology Impressions: ITS Impressions Pelvis CT 09/14/23 12:20 IMPRESSION: Extensive gas in the soft tissues of the right gluteal region and to a lesser extent medial right inner thigh and right perineum with surrounding fat stranding, concerning for a gangrenous/emphysematous infection. No organized abscess or drainable collection. Chest X-Ray 09/14/23 16:25 IMPRESSION: 1. Left-sided CVC catheter with the tip overlying the expected location of the lower SVC. 2. No pneumothorax. 3. No focal consolidation. Chest X-Ray 09/14/23 18:48 IMPRESSION: 1. Endotracheal tube 3.6 cm above blanca. 2. Low lung volumes. Chest X-Ray 09/15/23 02:15 IMPRESSION: Gastric tube extends below the diaphragm. The tip of the gastric tube is not well seen but appears to be in overall adequate position. No other significant change. Chest X-Ray 09/18/23 08:45 IMPRESSION: Lines as described. Interval density left base, question atelectasis/pneumonia and small effusion. Mental Status Exam Mental Status Exam Patient Appearance: Appropriate Patient Orientation: Person, Place, Time and Situation Level of Consciousness: Awake Patient Behavior: Appropriate Mood Description: Calm Affect Description: Calm and Flat Patient Cognition Impaired: No Ability to Follow Directions: Good Speech Pattern: Clear Memory Description: Intact Hallucinations: None Delusions: Not Present Thought Process: Intact and Goal Oriented Thought Content: positive for Intact and positive for Goal Oriented Judgement: Fair Medications Medications Current Medications Acetaminophen (Acetaminophen Oral Liquid 650 Mg/20.3 Ml Solution) 650 mg PO Q4H PRN PRN Reason: Fever Last Admin: 09/26/23 21:18 Dose: 650 mg Amoxicillin/Clavulanate Potassium (Amoxicillin/Potassium Clav 875 Mg Tablet) 875 mg PO BID [facility] Last Admin: 09/28/23 08:45 Dose: 875 mg Cyanocobalamin (Cyanocobalamin (Vitamin B-12) 1,000 Mcg Tablet) 1,000 mcg PO DAILY [facility] Last Admin: 09/28/23 08:45 Dose: 1,000 mcg Doxycycline Monohydrate (Doxycycline Monohydrate 100 Mg Capsule) 100 mg PO BID [facility] Last Admin: 09/28/23 08:45 Dose: 100 mg Enoxaparin Sodium (Enoxaparin Sodium 40 Mg/0.4 Ml Syringe) 40 mg SUBCUT Q24H [facility] Last Admin: 09/28/23 11:26 Dose: 40 mg Glucose (Glucose Gel 15 Gm Gel..Gram.) 15 gm PO Q15M PRN; Protocol PRN Reason: per Hypoglycemia Standing Ord. Dextrose (D10) 250 mls @ 750 mls/hr IV Q15M PRN PRN Reason: per Hypoglycemia Standing Ord. Insulin Glargine (Insulin Glargine,Hum.Rec.Anlog 100 Unit/Ml 10 Ml Vial) 20 unit SUBCUT BID [facility] Last Admin: 09/28/23 08:45 Dose: 20 unit Insulin Human Lispro (Insulin Lispro 100 Unit/Ml 3 Ml Vial) 0 unit SUBCUT QIDACHS [facility]; Protocol Last Admin: 09/28/23 11:34 Dose: 12 unit Naloxone HCl (Naloxone Hcl 0.4 Mg/Ml Vial) 0.2 mg IVPUSH Q2M PRN PRN Reason: Excessive sedation or RR < 8 Oxycodone HCl (Oxycodone Hcl Immed Release 5 Mg Tablet) 5 mg PO Q6H PRN PRN Reason: Pain, Severe (Pain Scale 7-10) Last Admin: 09/28/23 01:18 Dose: 5 mg Sertraline HCl (Sertraline Hcl 100 Mg Tablet) 100 mg PO DAILY [facility] Last Admin: 09/28/23 08:45 Dose: 100 mg Sodium Chloride (0.9 % Sodium Chloride Flush 3 Ml Syringe) 3 ml IVFLUSH QSHIFT VIKTORIYA Last Admin: 09/28/23 08:45 Dose: 3 ml Sodium Hypochlorite (Sodium Hypochlorite 0.125% 473 Ml Solution) 1 appl TOPICAL DAILY VIKTORIYA Last Admin: 09/28/23 08:47 Dose: Not Given Sodium Hypochlorite (Sodium Hypochlorite 0.125% 473 Ml Solution) 1 appl TOPICAL DAILY VIKTORIYA Last Admin: 09/28/23 08:47 Dose: 1 appl Allergies Allergies Allergy/AdvReac Type Severity Reaction Status Date / Time No Known Allergies Allergy Verified 09/14/23 11:03 Assessment & Plan Assessment & Plan (1) Major depressive disorder, recurrent, moderate: Status: Acute Code(s): F33.1 - Major depressive disorder, recurrent, moderate Plan increase zoloft to 150 mg daily hold other home medications as he is not anxious , psychotic or having trouble sleeping at this time Total time managing care of this patient today _55___ minutes.
--- NOTE | 2023-09-28 12:57 | P.PNIM_ITS ---
Subjective Subjective Date of Service: 09/28/23 Interval History: Being followed for for Neer's gangrene, offers no acute complaints, feels depressed, evaluated by Psychiatry, sleeping well tolerating diet no nausea, no vomiting, Review of Systems All other system reviewed and are negative. Physical Exam 2 Vital Signs: Vital Signs: Last Vital Signs Temp 97.8 F 09/28/23 11:05 Pulse 84 09/28/23 11:05 Resp 18 09/28/23 11:05 BP 128/60 09/28/23 11:05 Pulse Ox 96 09/28/23 11:05 O2 Del Method Room Air 09/28/23 11:05 O2 Flow Rate 2 09/28/23 07:10 FiO2 30 09/20/23 11:33 BMI result Body Mass Index 50.2 Const: Other: General awake alert, in no acute distress. Neck no JVD. CVS regular rate rhythm, Respiratory lungs clear to auscultation, no respiratory distress, no wheeze, no rhonchi. Gastrointestinal abdomen soft, mild right lower abdominal tenderness, no rebound, no rigidity, no palpable mass, bowel sounds audible. Dressing to lower buttock, proximal thigh in place Extremities no edema. Neuro awake alert x3 Objective Data Active Medications Acetaminophen (Acetaminophen Oral Liquid 650 Mg/20.3 Ml Solution) 650 mg PO Q4H PRN PRN Reason: Fever Last Admin: 09/26/23 21:18 Dose: 650 mg Documented By: SONDRA Amoxicillin/Clavulanate Potassium (Amoxicillin/Potassium Clav 875 Mg Tablet) 875 mg PO BID [facility] Last Admin: 09/28/23 08:45 Dose: 875 mg Documented By: TAYO Cyanocobalamin (Cyanocobalamin (Vitamin B-12) 1,000 Mcg Tablet) 1,000 mcg PO DAILY [facility] Last Admin: 09/28/23 08:45 Dose: 1,000 mcg Documented By: TAYO Doxycycline Monohydrate (Doxycycline Monohydrate 100 Mg Capsule) 100 mg PO BID [facility] Last Admin: 09/28/23 08:45 Dose: 100 mg Documented By: TAYO Enoxaparin Sodium (Enoxaparin Sodium 40 Mg/0.4 Ml Syringe) 40 mg SUBCUT Q24H [facility] Last Admin: 09/28/23 11:26 Dose: 40 mg Documented By: TAYO Glucose (Glucose Gel 15 Gm Gel..Gram.) 15 gm PO Q15M PRN; Protocol PRN Reason: per Hypoglycemia Standing Ord. Dextrose (D10) 250 mls @ 750 mls/hr IV Q15M PRN PRN Reason: per Hypoglycemia Standing Ord. Insulin Glargine (Insulin Glargine,Hum.Rec.Anlog 100 Unit/Ml 10 Ml Vial) 20 unit SUBCUT BID [facility] Last Admin: 09/28/23 08:45 Dose: 20 unit Documented By: TAYO Insulin Human Lispro (Insulin Lispro 100 Unit/Ml 3 Ml Vial) 0 unit SUBCUT QIDACHS [facility]; Protocol Last Admin: 09/28/23 11:34 Dose: 12 unit Documented By: TAYO Naloxone HCl (Naloxone Hcl 0.4 Mg/Ml Vial) 0.2 mg IVPUSH Q2M PRN PRN Reason: Excessive sedation or RR < 8 Oxycodone HCl (Oxycodone Hcl Immed Release 5 Mg Tablet) 5 mg PO Q6H PRN PRN Reason: Pain, Severe (Pain Scale 7-10) Last Admin: 09/28/23 01:18 Dose: 5 mg Documented By: SONDRA Sertraline HCl (Sertraline Hcl 100 Mg Tablet) 100 mg PO DAILY [facility] Last Admin: 09/28/23 08:45 Dose: 100 mg Documented By: TAYO Sodium Chloride (0.9 % Sodium Chloride Flush 3 Ml Syringe) 3 ml IVFLUSH QSHIFT [facility] Last Admin: 09/28/23 08:45 Dose: 3 ml Documented By: TAYO Sodium Hypochlorite (Sodium Hypochlorite 0.125% 473 Ml Solution) 1 appl TOPICAL DAILY [facility] Last Admin: 09/28/23 08:47 Dose: Not Given Documented By: TAYO Non-Admin Reason: Duplicate Order Sodium Hypochlorite (Sodium Hypochlorite 0.125% 473 Ml Solution) 1 appl TOPICAL DAILY [facility] Last Admin: 09/28/23 08:47 Dose: 1 appl Documented By: TAYO Labs 09/27/23 06:11 09/28/23 06:09 Labs: Laboratory Results - last 24 hr 09/27/23 09/27/23 09/28/23 16:23 19:54 06:09 Anion Gap 14 Estim Creat Clear Calc 230.7 Estimated GFR > 60 POC Glucose 148 H 238 H Random Glucose 109 Calcium 8.5 09/28/23 09/28/23 07:12 11:09 Anion Gap Estim Creat Clear Calc Estimated GFR POC Glucose 160 H 255 H Random Glucose Calcium Assessment and Plan (1) Hypernatremia: Status: Acute (2) Type 2 diabetes mellitus: Status: Acute Plan 48M PMH DM, morbid obesity, htn, mood disorder, KIM, presented 09/14/23 with perneal erythema, pain, 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 admitted to ICU, treated with vanco, zosyn, clinda, pressor support, insulin. underwent debridement 09/14/23 and 09/17/23. patient eventually extubated, weaned off pressors. downgraded 09/21/23. course complicated by acute blood loss and inflammatory anemia requiring transfusions, hypernatremia. 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 and IV meropenem was on 09/21 to 09/25 s/p iv vanc, and zosyn, cultures negative place on by mouth doxy and Augmentin for 1 week started on 09/25 s/p debridements, gen surg following, continue dressing change as per General surgery and wound nurse, frequent position change No fevers , WBC trending down, blood cultures negative DM with DKa dka resolved, elevated blood sugars slowly improving Lantus 20 units b.i.d. and insulin sliding scale, better blood sugar control Acute Hypokalemia likely due to GI loss resolved acute hypoxic respiratory failure due to sepsis extubated successfully, continue to wean o2 mohini resolved acute hypernatremia Sodium improved to 146 will continue to push by mouth fluid , follow BMP icu/critical illness myopathy Diet upgraded to thin liquids and modified solids PT rec LTAC acute blood loss and inflammatory anemia stable hematocrit mood disorder Feels depressed evaluated by Psychiatry they recommend to increase dose of Zoloft to 150 and recommend to hold all other medications since psych feels patient was overmedicated and now sleeping well, not anxious, no suicidal ideation htn stable BP ,lisinopril on hold morbid obesity weight loss recommended KIM cpap at night dvt prophylaxis - lovenox Disposition patient requires long-term acute care hospital level of care for daily physician monitoring and intervention for significant necrotizing fasciitis ,complex wounds requiring extensive wound care, with progression to wound VAC next week, for a significant right posterior and lateral thigh wound measuring 15 cm x 27 cm x maximum depth of 7 cm at 03:00 o'clock location and also a left buttock wound measuring 1 cm x 3.5 cm x 0.1 cm, requiring Daily wound care, and repositioning every 2 hours, also requires close respiratory monitoring not on home oxygen currently requiring 2 to 4 L of oxygen with gradual weaning, will require continued monitoring of labs and vital signs, and requiring moderate to maximum assist for transfers. full code reason for continued hospitalization:severe electrolyte abnormalities, wound care, on IV antibiotics. Quality Stroke Does the patient have a stroke diagnosis?: No VTE Prior VTE?: No VTE Risk Level:: Medical - moderate - high VTE Device Contraindication: N/A - Device Ordered VTE Drug Contraindication: Treatment Not Tolerated
--- NOTE | 2023-09-28 13:07 | MHC.SL.SWA ---
Speech Pathologist Impression: Risk of Aspiration Risk of Aspiration Due to: Hx of Recent Extubation Dysphasia Diet Status: No Change Liquid Consistency and Strategies for Safe Swallow: Liquid Intake Recommendation: Thin Liquid Intake Strategies: Small Sips Solid Food Consistency: Dietary Recommendations: Chopped/Advanced (NDD3) Additional Modifications to Solid Foods: Patient appears to be on safest, least restrictive diet textures. Patient is able to feed himself, but is recommended periodic check-in throughout meal. Further ST intervention is no longer warranted. Please re-refer with any changes or if SOYFREEZE OPERATOR can be of further assistance in patient's care. Oral Medication Intake: Whole with Liquid Please contact the pharmacy regarding appropriate crushable or liquid drug formulations that are available whenever modified delivery is recommended. Compensatory Strategies and Precautions to be Taken for Safe Swallow: Sitting Upright (90 deg) Small Bites and Sips Alternate Liquids/Solids Rate of Ingestion Change Supervision While Eating and Drinking for Safe Swallow: Intermittent Supervision Swallowing Recommended Treatments: Compens. Strategy Educat. Recommendation for Speech: D/C Incinerator Plant Laborer Clinican/Clinical Fellow: No Supervisory Statement: I have reviewed and agree with the student/clinical fellow's documentation: N/A Speech Language Pathologist: Mildred Meléndez M.A., [facility]-SOYFREEZE OPERATOR
[2023-09-28 13:44] LABS: Glucose, Whole Blood 295 mg/dL (60-115)
--- NOTE | 2023-09-28 14:17 | PC.NURSE ---
Patient assisted to bathroom from recliner w/ walker and 1 person assist - and tolerated without difficultly or incidence. When patient stool from toilet w/ walker and 3 max assist - patient reports legs feeling weak and lowered self to floor onto knees. MD called to bedside. Patient reported feeling dizzy and very diaphoretic while kneeling on floor - HR maintaining 160s sinus. Patient assisted to lying position by staff - Vitals signs while lying on floor 135/72, HR 166, RR 28, 100% on RA. Patient assisted back to bed with alexander lift. Patient reported dizziness subsided and has no complaints of pain. POC obtained - 295. Repeat vitals obtained when back to bed - 117/62, HR 103 sinus, RR 22, 99% on 1L NC.
[2023-09-28 16:14] LABS: Glucose, Whole Blood 216 mg/dL (60-115)
--- NOTE | 2023-09-28 17:33 | PC.NURSE ---
1430 - Patient assisted to bathroom from recliner w/ walker and 1 person assist and high fall risk precautions in place - tolerated without difficultly or incidence. When patient stood from toilet w/ walker and 3 max assist, patient reported legs feeling weak and lowered self to floor onto knees with staff assistance. MD called to bedside. Patient reported feeling dizzy and became diaphoretic while kneeling on floor - HR maintaining 160s sinus. Patient assisted to lying position by staff - Vitals signs while lying on floor 135/72, HR 166, RR 28, 100% on RA. Patient assisted back to bed with alexander lift and 4 person assist. Patient reported dizziness subsided and had no complaints of pain. POC obtained - 295. Repeat vitals obtained when back to bed - 117/62, HR 103 sinus, RR 22, 99% on 1L NC. High fall risk precautions in place.
[2023-09-28 20:20] LABS: Glucose, Whole Blood 164 mg/dL (60-115)
[2023-09-29 04:00] VITALS: BP 126/58; PULSE 79; RESP 20; TEMP 36.6; O2SAT 99
[2023-09-29 07:16] VITALS: BP 121/59; PULSE 70; RESP 18; TEMP 36.9; O2SAT 98
[2023-09-29 07:24] LABS: Glucose, Whole Blood 151 mg/dL (60-115)
[2023-09-29] MEDS: Sertraline HCL 50 MG TABLET 150 MG PO (09:07)
[2023-09-29] MEDS: Doxycycline Monohydrate 100 MG CAPSULE PO ×2 (09:08→22:13)
[2023-09-29] MEDS: Amoxicillin/Potassium Clav 875 MG TABLET PO ×2 (09:08→22:13)
[2023-09-29] MEDS: Insulin Lispro 100 UNIT/ML 3 ML VIAL SUBCUT ×4 (09:08→22:14)
[2023-09-29] MEDS: Cyanocobalamin (Vitamin B-12) 1,000 MCG TABLET 1000 MCG PO (09:08)
[2023-09-29] MEDS: Insulin Glargine,Hum.rec.anlog 100 UNIT/ML 10 ML VIAL 20 UNIT SUBCUT ×2 (09:08→22:14)
[2023-09-29] MEDS: 0.9 % Sodium Chloride Flush 3 ML SYRINGE IVFLUSH ×3 (09:09→22:15)
[2023-09-29] MEDS: oxyCODONE HCl Immed Release 5 MG TABLET PO (10:56)
--- NOTE | 2023-09-29 11:13 | P.PNIM_ITS ---
Subjective Subjective Date of Service: 09/29/23 Interval History: Being followed for Cuate gangrene. Events from last night noted, patient lowered himself to the ground after feeling leg weakness, , while kneeling on the floor patient complained of dizziness and became diaphoretic, heart rate was in 160s, blood pressure and oxygenation stable, patient assisted back to bed with Mikal lift, patient denied pain, no dizziness, repeat vitals and heart rate were stable, blood sugar 295. Symptoms likely due to deconditioning, had no fainting, no hypotension, no seizure-like activity. This morning patient offers no acute complaints asking for Conti catheter, although able to urinate in urinal, denies pain, no fever, no chills is on 3 L of oxygen. Review of Systems All other symptoms are reviewed and are negative. Physical Exam 2 Vital Signs: Vital Signs: Last Vital Signs Temp 98.4 F 09/29/23 07:16 Pulse 70 09/29/23 07:16 Resp 18 09/29/23 07:16 BP 121/59 L 09/29/23 07:16 Pulse Ox 98 09/29/23 07:16 O2 Del Method Nasal Cannula 09/29/23 07:16 O2 Flow Rate 2 09/29/23 07:16 FiO2 30 09/20/23 11:33 BMI result Body Mass Index 50.2 Const: Other: General awake alert, in no acute distress. Neck no JVD. CVS regular rate rhythm, Respiratory lungs clear to auscultation, no respiratory distress, no wheeze, no rhonchi. Gastrointestinal abdomen soft, no rebound, no rigidity, no palpable mass, bowel sounds audible. Dressing to left buttock, proximal rt. thigh in place. Extremities no edema. Neuro awake alert x3 Objective Data Active Medications Acetaminophen (Acetaminophen Oral Liquid 650 Mg/20.3 Ml Solution) 650 mg PO Q4H PRN PRN Reason: Fever Last Admin: 09/26/23 21:18 Dose: 650 mg Documented By: SONDRA Amoxicillin/Clavulanate Potassium (Amoxicillin/Potassium Clav 875 Mg Tablet) 875 mg PO BID [facility] Last Admin: 09/29/23 09:08 Dose: 875 mg Documented By: RENATO Cyanocobalamin (Cyanocobalamin (Vitamin B-12) 1,000 Mcg Tablet) 1,000 mcg PO DAILY [facility] Last Admin: 09/29/23 09:08 Dose: 1,000 mcg Documented By: RENATO Doxycycline Monohydrate (Doxycycline Monohydrate 100 Mg Capsule) 100 mg PO BID [facility] Last Admin: 09/29/23 09:08 Dose: 100 mg Documented By: RENATO Enoxaparin Sodium (Enoxaparin Sodium 40 Mg/0.4 Ml Syringe) 40 mg SUBCUT Q24H [facility] Last Admin: 09/28/23 11:26 Dose: 40 mg Documented By: TAYO Glucose (Glucose Gel 15 Gm Gel..Gram.) 15 gm PO Q15M PRN; Protocol PRN Reason: per Hypoglycemia Standing Ord. Dextrose (D10) 250 mls @ 750 mls/hr IV Q15M PRN PRN Reason: per Hypoglycemia Standing Ord. Insulin Glargine (Insulin Glargine,Hum.Rec.Anlog 100 Unit/Ml 10 Ml Vial) 20 unit SUBCUT BID [facility] Last Admin: 09/29/23 09:08 Dose: 20 unit Documented By: RENATO Insulin Human Lispro (Insulin Lispro 100 Unit/Ml 3 Ml Vial) 0 unit SUBCUT QIDACHS [facility]; Protocol Last Admin: 09/29/23 09:08 Dose: 2 unit Documented By: RENATO Naloxone HCl (Naloxone Hcl 0.4 Mg/Ml Vial) 0.2 mg IVPUSH Q2M PRN PRN Reason: Excessive sedation or RR < 8 Oxycodone HCl (Oxycodone Hcl Immed Release 5 Mg Tablet) 5 mg PO Q6H PRN PRN Reason: Pain, Severe (Pain Scale 7-10) Last Admin: 09/29/23 10:56 Dose: 5 mg Documented By: RENATO Sertraline HCl (Sertraline Hcl 50 Mg Tablet) 150 mg PO DAILY [facility] Last Admin: 09/29/23 09:07 Dose: 150 mg Documented By: RENATO Sodium Chloride (0.9 % Sodium Chloride Flush 3 Ml Syringe) 3 ml IVFLUSH QSHIFT [facility] Last Admin: 09/29/23 09:09 Dose: 3 ml Documented By: RENATO Sodium Hypochlorite (Sodium Hypochlorite 0.125% 473 Ml Solution) 1 appl TOPICAL DAILY [facility] Last Admin: 09/29/23 09:09 Dose: Not Given Documented By: RENATO Non-Admin Reason: not in room Sodium Hypochlorite (Sodium Hypochlorite 0.125% 473 Ml Solution) 1 appl TOPICAL DAILY [facility] Last Admin: 09/29/23 09:09 Dose: Not Given Documented By: RENATO Non-Admin Reason: dup. 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 admitted to ICU, treated with vanco, zosyn, clinda, pressor support, insulin. underwent debridement 09/14/23 and 09/17/23. patient eventually extubated, weaned off pressors. downgraded 09/21/23. course complicated by acute blood loss and inflammatory anemia requiring transfusions, hypernatremia. 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 and IV meropenem from 09/21 to 09/25 s/p iv vanc, and zosyn initially, cultures negative on doxy and Augmentin for 1 week started on 09/25 end date 10/02 s/p debridements, gen surg following, continue dressing change as per General surgery and wound nurse, frequent position change No fevers , WBC trending down, blood cultures negative. DM with DKA dka resolved, elevated blood sugars slowly improving Lantus 20 units b.i.d. and insulin sliding scale, better blood sugar control Acute Hypokalemia likely due to GI loss resolved acute hypoxic respiratory failure due to sepsis extubated successfully, continue to wean o2, not on home oxygen, oxygenation dropped to 70s with activity. mohini resolved acute hypernatremia Sodium improved to 146 will continue to push by mouth fluid , follow BMP icu/critical illness myopathy Diet upgraded to thin liquids and modified solids need safe disposition to short-term rehab Recommend daily out of bed to chair. acute blood loss and inflammatory anemia stable hematocrit mood disorder Feels depressed evaluated by Psychiatry they recommend to increase dose of Zoloft to 150 and recommend to hold all other medications since psych feels patient was overmedicated and now sleeping well, not anxious, no suicidal ideation htn stable BP ,lisinopril on hold morbid obesity weight loss recommended KIM cpap at night dvt prophylaxis - lovenox Disposition patient requires long-term acute care hospital level of care for daily physician monitoring and intervention for significant necrotizing fasciitis ,complex wounds requiring extensive wound care, with progression to wound VAC next week, for a significant right posterior and lateral thigh wound measuring 15 cm x 27 cm x maximum depth of 7 cm at 03:00 o'clock location and also a left buttock wound measuring 1 cm x 3.5 cm x 0.1 cm, requiring Daily wound care, and repositioning every 2 hours, also requires close respiratory monitoring, not on home oxygen currently requiring 2 to 4 L of oxygen with gradual weaning, will require continued monitoring of labs and vital signs, and requiring moderate to maximum assist for transfers. full code reason for continued hospitalization:severe electrolyte abnormalities, wound care, on antibiotics and safe disposition. Quality Stroke Does the patient have a stroke diagnosis?: No VTE Prior VTE?: No VTE Risk Level:: Medical - moderate - high VTE Device Contraindication: N/A - Device Ordered VTE Drug Contraindication: Treatment Not Tolerated
[2023-09-29 11:14] VITALS: BP 121/59; PULSE 81; RESP 18; TEMP 37; O2SAT 100
[2023-09-29 11:14] LABS: Glucose, Whole Blood 159 mg/dL (60-115)
[2023-09-29] MEDS: Enoxaparin Sodium 40 MG/0.4 ML SYRINGE SUBCUT (12:32)
[2023-09-29 15:20] VITALS: BP 124/60; PULSE 80; RESP 18; TEMP 37.2; O2SAT 96
[2023-09-29 16:06] LABS: Glucose, Whole Blood 200 mg/dL (60-115)
[2023-09-29 20:00] VITALS: BP 105/59; PULSE 80; RESP 18; TEMP 36.8; O2SAT 100
[2023-09-29 21:14] LABS: Glucose, Whole Blood 228 mg/dL (60-115)
[2023-09-29 23:41] VITALS: BP 114/58; PULSE 78; RESP 18; TEMP 36.4; O2SAT 100
[2023-09-30] VITALS (8 sets, daily range): BP systolic 116–129; BP diastolic 54–60; PULSE 72–88; RESP 16–20; TEMP 35.9–37.2; O2SAT 99–100
[2023-09-30 06:32] LABS: Anion Gap 14 (12-20); Blood Urea Nitrogen 14 mg/dL (9-16); Calcium 8.2 mg/dL (8.4-10.2); Carbon Dioxide 22 mmol/L (22-29); Chloride 107 mmol/L (96-108); Creatinine Clr Calc Pharmacy 230.7; Estimated Glomerular Filt Rate > 60; Glucose Random 105 mg/dL (60-115); Iron 52 mcg/dL (45-160); Percent Iron Saturation 35 % (15-50); Potassium 3.7 mmol/L (3.3-5.1); Sodium 139 mmol/L (135-145); Total Iron Binding Capacity 150 mcg/dL (228-428); Unsaturated Iron Binding 98 ug/dL
[2023-09-30 06:51] LABS: Ferritin 379 ng/mL (20-250)
[2023-09-30 06:56] LABS: Folate 14.8 ng/mL (> or = 4.0); Vitamin B12 1755 pg/mL (200-900)
[2023-09-30 07:13] LABS: Hematocrit 23.9 % (42.0-52.0); Hemoglobin 7.5 g/dl (14.0-18.0); Mean Corpuscular HGB Conc 31.4 g/dl (31.0-36.0); Mean Corpuscular Hemoglobin 29.2 pg (27.0-33.0); Mean Platelet Volume 9.9 fL (9.4-12.4); NRBC Pct Auto 0.5 /100WBC (0.0-0.2); Platelet Count 292 X10*3/uL (160-400); Red Blood Count 2.57 X10*6/uL (4.60-5.80); Red Cell Distribution Width 18.4 % (11.0-16.0); White Blood Count 7.7 X10*3/uL (4.8-10.8)
[2023-09-30 07:22] LABS: Glucose, Whole Blood 107 mg/dL (60-115)
[2023-09-30] MEDS: Doxycycline Monohydrate 100 MG CAPSULE PO ×2 (09:05→20:47)
[2023-09-30] MEDS: Insulin Glargine,Hum.rec.anlog 100 UNIT/ML 10 ML VIAL 20 UNIT SUBCUT ×2 (09:05→20:47)
[2023-09-30] MEDS: Sertraline HCL 50 MG TABLET 150 MG PO (09:05)
[2023-09-30] MEDS: Cyanocobalamin (Vitamin B-12) 1,000 MCG TABLET 1000 MCG PO (09:06)
[2023-09-30] MEDS: Amoxicillin/Potassium Clav 875 MG TABLET PO ×2 (09:06→20:47)
[2023-09-30] MEDS: 0.9 % Sodium Chloride Flush 3 ML SYRINGE IVFLUSH ×2 (09:06→20:49)
[2023-09-30] MEDS: oxyCODONE HCl Immed Release 5 MG TABLET PO ×2 (09:09→23:22)
[2023-09-30 10:44] LABS: Glucose, Whole Blood 211 mg/dL (60-115)
--- NOTE | 2023-09-30 10:46 | P.PNIM_ITS ---
Subjective Subjective Date of Service: 09/30/23 Interval History: Complaining of dizziness with sitting, denies chest pain, no palpitations, no fevers, no chills, tolerating diet, denies pain, no other acute events overnight. Review of Systems All other system reviewed and negative. Physical Exam 2 Vital Signs: Vital Signs: Last Vital Signs Temp 98.3 F 09/30/23 07:14 Pulse 72 09/30/23 07:14 Resp 18 09/30/23 07:14 BP 120/56 L 09/30/23 07:14 Pulse Ox 99 09/30/23 07:14 O2 Del Method Room Air 09/30/23 07:14 O2 Flow Rate 2 09/29/23 20:00 FiO2 30 09/20/23 11:33 BMI result Body Mass Index 50.2 Const: Other: General awake alert, in no acute distress. Neck no JVD. CVS regular rate rhythm, Respiratory lungs clear to auscultation, no respiratory distress, no wheeze, no rhonchi. Gastrointestinal abdomen soft, no rebound, no rigidity, no palpable mass, bowel sounds audible. Dressing to left buttock,and proximal rt. thigh in place. Extremities no edema. Neuro awake alert x3 Objective Data Active Medications Acetaminophen (Acetaminophen Oral Liquid 650 Mg/20.3 Ml Solution) 650 mg PO Q4H PRN PRN Reason: Fever Last Admin: 09/26/23 21:18 Dose: 650 mg Documented By: SONDRA Amoxicillin/Clavulanate Potassium (Amoxicillin/Potassium Clav 875 Mg Tablet) 875 mg PO BID [facility] Last Admin: 09/30/23 09:06 Dose: 875 mg Documented By: RENATO Cyanocobalamin (Cyanocobalamin (Vitamin B-12) 1,000 Mcg Tablet) 1,000 mcg PO DAILY [facility] Last Admin: 09/30/23 09:06 Dose: 1,000 mcg Documented By: RENATO Doxycycline Monohydrate (Doxycycline Monohydrate 100 Mg Capsule) 100 mg PO BID [facility] Last Admin: 09/30/23 09:05 Dose: 100 mg Documented By: RENATO Enoxaparin Sodium (Enoxaparin Sodium 40 Mg/0.4 Ml Syringe) 40 mg SUBCUT Q24H [facility] Last Admin: 09/29/23 12:32 Dose: 40 mg Documented By: RENATO Glucose (Glucose Gel 15 Gm Gel..Gram.) 15 gm PO Q15M PRN; Protocol PRN Reason: per Hypoglycemia Standing Ord. Dextrose (D10) 250 mls @ 750 mls/hr IV Q15M PRN PRN Reason: per Hypoglycemia Standing Ord. Sodium Chloride (Ns) 100 mls @ 100 mls/hr IV ONCE ONE Stop: 09/30/23 10:56 Insulin Glargine (Insulin Glargine,Hum.Rec.Anlog 100 Unit/Ml 10 Ml Vial) 20 unit SUBCUT BID [facility] Last Admin: 09/30/23 09:05 Dose: 20 unit Documented By: RENATO Insulin Human Lispro (Insulin Lispro 100 Unit/Ml 3 Ml Vial) 0 unit SUBCUT QIDACHS [facility]; Protocol Last Admin: 09/30/23 07:36 Dose: Not Given Documented By: RENATO Non-Admin Reason: No Insulin Coverage Naloxone HCl (Naloxone Hcl 0.4 Mg/Ml Vial) 0.2 mg IVPUSH Q2M PRN PRN Reason: Excessive sedation or RR < 8 Oxycodone HCl (Oxycodone Hcl Immed Release 5 Mg Tablet) 5 mg PO Q6H PRN PRN Reason: Pain, Severe (Pain Scale 7-10) Last Admin: 09/30/23 09:09 Dose: 5 mg Documented By: RENATO Sertraline HCl (Sertraline Hcl 50 Mg Tablet) 150 mg PO DAILY [facility] Last Admin: 09/30/23 09:05 Dose: 150 mg Documented By: RENATO Sodium Chloride (0.9 % Sodium Chloride Flush 3 Ml Syringe) 3 ml IVFLUSH QSHIFT [facility] Last Admin: 09/30/23 09:06 Dose: 3 ml Documented By: RENATO Sodium Hypochlorite (Sodium Hypochlorite 0.125% 473 Ml Solution) 1 appl TOPICAL DAILY [facility] Last Admin: 09/30/23 09:10 Dose: Not Given Documented By: RENATO Non-Admin Reason: not due for change Sodium Hypochlorite (Sodium Hypochlorite 0.125% 473 Ml Solution) 1 appl TOPICAL DAILY [facility] Last Admin: 09/30/23 09:10 Dose: Not Given Documented By: RENATO Non-Admin Reason: not due for change Labs 09/30/23 06:55 09/30/23 05:51 Labs: Laboratory Results - last 24 hr 09/29/23 09/29/23 09/29/23 11:07 15:51 20:58 MCV MCH MCHC RDW Plt Count MPV Absolute Nucleated RBC Nucleated RBC % (auto) Anion Gap Estim Creat Clear Calc Estimated GFR POC Glucose 159 H 200 H 228 H Random Glucose Calcium Iron TIBC % Saturation Unsat Iron Binding Ferritin Vitamin B12 Folate 09/30/23 09/30/23 09/30/23 05:49 05:51 06:55 MCV 93.0 MCH 29.2 MCHC 31.4 RDW 18.4 H Plt Count 292 MPV 9.9 Absolute Nucleated RBC 0.040 H Nucleated RBC % (auto) 0.5 H Anion Gap 14 Estim Creat Clear Calc 230.7 Estimated GFR > 60 POC Glucose Random Glucose 105 Calcium 8.2 L Iron 52 TIBC 150 L % Saturation 35 Unsat Iron Binding 98 Ferritin 379 H Vitamin B12 1755 H Folate 14.8 09/30/23 09/30/23 07:14 10:41 MCV MCH MCHC RDW Plt Count MPV Absolute Nucleated RBC Nucleated RBC % (auto) Anion Gap Estim Creat Clear Calc Estimated GFR POC Glucose 107 211 H Random Glucose Calcium Iron TIBC % Saturation Unsat Iron Binding Ferritin Vitamin B12 Folate Assessment and Plan (1) Acute on chronic anemia: Status: Acute (2) Hypernatremia: Status: Acute (3) Type 2 diabetes mellitus: Status: Acute (4) Necrotizing soft tissue infection: Status: Acute Plan 48M PMH DM, morbid obesity, htn, mood disorder, KIM, presented 09/14/23 with perneal erythema, pain, 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 admitted to ICU, treated with vanco, zosyn, clinda, pressor support, insulin. underwent debridement 09/14/23 and 09/17/23. patient eventually extubated, weaned off pressors. downgraded 09/21/23. course complicated by acute blood loss and inflammatory anemia requiring transfusions, hypernatremia. 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 and IV meropenem from 09/21 to 09/25 s/p iv vanc, and zosyn initially, cultures negative on doxy and Augmentin for 1 week started on 09/25 end date 10/02 s/p debridements, gen surg following, continue dressing change as per General surgery and wound nurse, frequent position change. No fevers , WBC normalized, blood cultures negative. acute blood loss and inflammatory anemia. Hematocrit dropped, no active bleeding noted, patient is symptomatic will transfuse 1 unit, iron studies not consistent with iron deficiency, normal B12 and folate Follow CBC, consent obtained DM with DKA dka resolved, elevated blood sugars slowly improving Lantus 20 units b.i.d. and insulin sliding scale, better blood sugar control Acute Hypokalemia likely due to GI loss resolved acute hypoxic respiratory failure due to sepsis extubated successfully, continue to wean o2, not on home oxygen, oxygenation dropped to 70s with activity. mohini resolved acute hypernatremia Sodium improved to 146 will continue to push by mouth fluid , follow BMP icu/critical illness myopathy Diet upgraded to thin liquids and modified solids need safe disposition to short-term rehab Recommend daily out of bed to chair. mood disorder Feels depressed evaluated by Psychiatry they recommend to increase dose of Zoloft to 150 and recommend to hold all other medications since psych feels patient was overmedicated and now sleeping well, not anxious, no suicidal ideation htn stable BP ,lisinopril on hold morbid obesity weight loss recommended KIM cpap at night dvt prophylaxis - lovenox Disposition patient requires long-term acute care hospital level of care for daily physician monitoring and intervention for significant necrotizing fasciitis ,complex wounds requiring extensive wound care, with progression to wound VAC next week, for a significant right posterior and lateral thigh wound measuring 15 cm x 27 cm x maximum depth of 7 cm at 03:00 o'clock location and also a left buttock wound measuring 1 cm x 3.5 cm x 0.1 cm, requiring Daily wound care, and repositioning every 2 hours, also requires close respiratory monitoring, not on home oxygen currently requiring 2 to 4 L of oxygen with gradual weaning, will require continued monitoring of labs due to anemia requiring blood transfusion and need close monitoring of vital signs, and requiring moderate to maximum assist for transfers. full code reason for continued hospitalization:severe electrolyte abnormalities, wound care, on antibiotics and safe disposition. Quality Stroke Does the patient have a stroke diagnosis?: No VTE Prior VTE?: No VTE Risk Level:: Medical - moderate - high VTE Device Contraindication: N/A - Device Ordered VTE Drug Contraindication: Treatment Not Tolerated
[2023-09-30] MEDS: Enoxaparin Sodium 40 MG/0.4 ML SYRINGE SUBCUT (12:09)
[2023-09-30] MEDS: Insulin Lispro 100 UNIT/ML 3 ML VIAL SUBCUT ×3 (12:09→20:48)
[2023-09-30 15:46] LABS: Glucose, Whole Blood 193 mg/dL (60-115)
[2023-09-30 20:50] LABS: Glucose, Whole Blood 261 mg/dL (60-115)
[2023-10-01 03:03] VITALS: BP 129/61; PULSE 72; RESP 18; TEMP 36.2; O2SAT 99
[2023-10-01 07:41] LABS: Hematocrit 27.2 % (42.0-52.0); Hemoglobin 8.6 g/dl (14.0-18.0)
[2023-10-01 07:58] LABS: Glucose, Whole Blood 152 mg/dL (60-115)
[2023-10-01 08:00] VITALS: BP 114/60; PULSE 68; RESP 18; TEMP 36.2; O2SAT 98
[2023-10-01] MEDS: Amoxicillin/Potassium Clav 875 MG TABLET PO ×2 (08:02→20:18)
[2023-10-01] MEDS: Sertraline HCL 50 MG TABLET 150 MG PO (08:02)
[2023-10-01] MEDS: Insulin Glargine,Hum.rec.anlog 100 UNIT/ML 10 ML VIAL 20 UNIT SUBCUT ×2 (08:02→20:18)
[2023-10-01] MEDS: Doxycycline Monohydrate 100 MG CAPSULE PO ×2 (08:02→20:18)
[2023-10-01] MEDS: Cyanocobalamin (Vitamin B-12) 1,000 MCG TABLET 1000 MCG PO (08:02)
[2023-10-01] MEDS: Insulin Lispro 100 UNIT/ML 3 ML VIAL SUBCUT ×4 (08:04→20:19)
[2023-10-01] MEDS: 0.9 % Sodium Chloride Flush 3 ML SYRINGE IVFLUSH ×3 (08:04→20:19)
--- NOTE | 2023-10-01 08:28 | PC.RT ---
pt refusing to wear cpap for more than 7days. therefpre cpap will be discontinued.
[2023-10-01] MEDS: Sodium Hypochlorite 0.125% 473 ML SOLUTION 1 APPL TOPICAL (10:30)
[2023-10-01] MEDS: oxyCODONE HCl Immed Release 5 MG TABLET PO ×2 (10:55→20:21)
[2023-10-01 11:42] LABS: Glucose, Whole Blood 227 mg/dL (60-115)
[2023-10-01 12:00] VITALS: BP 119/64; PULSE 75; RESP 18; TEMP 36.5; O2SAT 100
--- NOTE | 2023-10-01 12:53 | PM.PNGS ---
Subjective Subjective Date of Service: 10/01/23 Interval history: No new complaints Seems to have been in better mood lately, not depressed anymore Physical Exam Vital Signs: Vital Signs: Last Vital Signs Temp 97.7 F 10/01/23 12:00 Pulse 75 10/01/23 12:00 Resp 18 10/01/23 12:00 BP 119/64 10/01/23 12:00 Pulse Ox 100 10/01/23 12:00 O2 Del Method Nasal Cannula 10/01/23 12:00 O2 Flow Rate 2 10/01/23 12:00 FiO2 30 09/20/23 11:33 BMI result Body Mass Index 50.2 Const: General: comfortable and no acute distress Resp: Effort & Inspection: normal respiratory effort Back/Spine/Pelvis: Other: Large open wound on the right buttock and thigh with good, healthy granulation, clean, no pus, no cellulitis, no ongoing necrotizing process Objective Data Active Medications Acetaminophen (Acetaminophen Oral Liquid 650 Mg/20.3 Ml Solution) 650 mg PO Q4H PRN PRN Reason: Fever Last Admin: 09/26/23 21:18 Dose: 650 mg Documented By: SONDRA Amoxicillin/Clavulanate Potassium (Amoxicillin/Potassium Clav 875 Mg Tablet) 875 mg PO BID [facility] Last Admin: 10/01/23 08:02 Dose: 875 mg Documented By: MARIELENA Cyanocobalamin (Cyanocobalamin (Vitamin B-12) 1,000 Mcg Tablet) 1,000 mcg PO DAILY [facility] Last Admin: 10/01/23 08:02 Dose: 1,000 mcg Documented By: MARIELENA Doxycycline Monohydrate (Doxycycline Monohydrate 100 Mg Capsule) 100 mg PO BID [facility] Last Admin: 10/01/23 08:02 Dose: 100 mg Documented By: MARIELENA Enoxaparin Sodium (Enoxaparin Sodium 40 Mg/0.4 Ml Syringe) 40 mg SUBCUT Q24H [facility] Last Admin: 09/30/23 12:09 Dose: 40 mg Documented By: RENATO Glucose (Glucose Gel 15 Gm Gel..Gram.) 15 gm PO Q15M PRN; Protocol PRN Reason: per Hypoglycemia Standing Ord. Dextrose (D10) 250 mls @ 750 mls/hr IV Q15M PRN PRN Reason: per Hypoglycemia Standing Ord. Insulin Glargine (Insulin Glargine,Hum.Rec.Anlog 100 Unit/Ml 10 Ml Vial) 20 unit SUBCUT BID [facility] Last Admin: 10/01/23 08:02 Dose: 20 unit Documented By: MARIELENA Insulin Human Lispro (Insulin Lispro 100 Unit/Ml 3 Ml Vial) 0 unit SUBCUT QIDACHS [facility]; Protocol Last Admin: 10/01/23 08:04 Dose: 2 unit Documented By: MARIELENA Naloxone HCl (Naloxone Hcl 0.4 Mg/Ml Vial) 0.2 mg IVPUSH Q2M PRN PRN Reason: Excessive sedation or RR < 8 Oxycodone HCl (Oxycodone Hcl Immed Release 5 Mg Tablet) 5 mg PO Q6H PRN PRN Reason: Pain, Severe (Pain Scale 7-10) Last Admin: 10/01/23 10:55 Dose: 5 mg Documented By: MARIELENA Sertraline HCl (Sertraline Hcl 50 Mg Tablet) 150 mg PO DAILY [facility] Last Admin: 10/01/23 08:02 Dose: 150 mg Documented By: MARIELENA Sodium Chloride (0.9 % Sodium Chloride Flush 3 Ml Syringe) 3 ml IVFLUSH QSHIFT [facility] Last Admin: 10/01/23 08:04 Dose: 3 ml Documented By: MARIELENA Sodium Hypochlorite (Sodium Hypochlorite 0.125% 473 Ml Solution) 1 appl TOPICAL DAILY [facility] Last Admin: 10/01/23 08:08 Dose: Not Given Documented By: MARIELENA Non-Admin Reason: Duplicate Order Sodium Hypochlorite (Sodium Hypochlorite 0.125% 473 Ml Solution) 1 appl TOPICAL DAILY [facility] Last Admin: 10/01/23 10:30 Dose: 1 appl Documented By: MARIELENA Labs 10/01/23 07:30 09/30/23 05:51 Labs: Laboratory Results - last 24 hr 09/30/23 09/30/23 09/30/23 10:41 15:43 20:38 POC Glucose 193 H 261 H Blood Type A Positive Antibody Screen NEGATIVE Crossmatch See Detail 10/01/23 10/01/23 07:34 11:35 POC Glucose 152 H 227 H Blood Type Antibody Screen Crossmatch Procedures Date of Service Date of Service: 10/01/23 Arterial Line Size (Gauge): 20 Progress Note: A&P Assessment and plan (1) Necrotizing soft tissue infection: Status: Acute Assessment and Plan: Status post multiple debridement The wound looks clean, with a good healthy granulation tissue now It appears he will be ready for a wound VAC I will discuss this with lower the wound care nurse tomorrow Explained this to patient He will need to be more aggressive with physical therapy as he seems to be bed-bound because of deconditioning Blood sugars better Time Spent With Patient Time: Total time managing care of this patient today ____ minutes. Quality Stroke Does the patient have a stroke diagnosis?: No VTE Prior VTE?: No VTE Risk Level:: Medical - moderate - high VTE Device Contraindication: N/A - Device Ordered VTE Drug Contraindication: Treatment Not Tolerated
[2023-10-01] MEDS: Enoxaparin Sodium 40 MG/0.4 ML SYRINGE SUBCUT (13:01)
--- NOTE | 2023-10-01 15:15 | MHC.CM.PN ---
Patient is medically cleared for dc to LTACH. Patient will dc to [facility] tomorrow at 10AM, via [facility]. CM met with Patient at bedside and he is in agreement with the dc plan; Patient will inform his Mother/HCP himself.
--- NOTE | 2023-10-01 15:55 | P.PNIM_ITS ---
Subjective Subjective Date of Service: 10/01/23 Interval History: Offers no acute complaints, no pain, no fevers, does feel dizzy with sitting up. Dressing change this afternoon by Dr. Matthew plan is for wound VAC tomorrow morning Review of Systems All other system reviewed and are negative. Physical Exam 2 Vital Signs: Vital Signs: Last Vital Signs Temp 97.7 F 10/01/23 12:00 Pulse 75 10/01/23 12:00 Resp 18 10/01/23 12:00 BP 119/64 10/01/23 12:00 Pulse Ox 100 10/01/23 12:00 O2 Del Method Nasal Cannula 10/01/23 12:00 O2 Flow Rate 2 10/01/23 12:00 FiO2 30 09/20/23 11:33 BMI result Body Mass Index 50.2 Const: Other: General awake alert, in no acute distress. Neck no JVD. CVS regular rate rhythm, Respiratory lungs clear to auscultation, no respiratory distress, no wheeze, no rhonchi. Gastrointestinal abdomen soft, no rebound, no rigidity, no palpable mass, bowel sounds audible. Dressing to left buttock,and proximal rt. thigh in place. Extremities no edema. Neuro awake alert x3 Objective Data Active Medications Acetaminophen (Acetaminophen Oral Liquid 650 Mg/20.3 Ml Solution) 650 mg PO Q4H PRN PRN Reason: Fever Last Admin: 09/26/23 21:18 Dose: 650 mg Documented By: SONDRA Amoxicillin/Clavulanate Potassium (Amoxicillin/Potassium Clav 875 Mg Tablet) 875 mg PO BID [facility] Last Admin: 10/01/23 08:02 Dose: 875 mg Documented By: MARIELENA Cyanocobalamin (Cyanocobalamin (Vitamin B-12) 1,000 Mcg Tablet) 1,000 mcg PO DAILY [facility] Last Admin: 10/01/23 08:02 Dose: 1,000 mcg Documented By: MARIELENA Doxycycline Monohydrate (Doxycycline Monohydrate 100 Mg Capsule) 100 mg PO BID [facility] Last Admin: 10/01/23 08:02 Dose: 100 mg Documented By: MARIELENA Enoxaparin Sodium (Enoxaparin Sodium 40 Mg/0.4 Ml Syringe) 40 mg SUBCUT Q24H [facility] Last Admin: 10/01/23 13:01 Dose: 40 mg Documented By: MARIELENA Glucose (Glucose Gel 15 Gm Gel..Gram.) 15 gm PO Q15M PRN; Protocol PRN Reason: per Hypoglycemia Standing Ord. Dextrose (D10) 250 mls @ 750 mls/hr IV Q15M PRN PRN Reason: per Hypoglycemia Standing Ord. Insulin Glargine (Insulin Glargine,Hum.Rec.Anlog 100 Unit/Ml 10 Ml Vial) 20 unit SUBCUT BID [facility] Last Admin: 10/01/23 08:02 Dose: 20 unit Documented By: MARIELENA Insulin Human Lispro (Insulin Lispro 100 Unit/Ml 3 Ml Vial) 0 unit SUBCUT QIDACHS [facility]; Protocol Last Admin: 10/01/23 13:01 Dose: 10 unit Documented By: MARIELENA Naloxone HCl (Naloxone Hcl 0.4 Mg/Ml Vial) 0.2 mg IVPUSH Q2M PRN PRN Reason: Excessive sedation or RR < 8 Oxycodone HCl (Oxycodone Hcl Immed Release 5 Mg Tablet) 5 mg PO Q6H PRN PRN Reason: Pain, Severe (Pain Scale 7-10) Last Admin: 10/01/23 10:55 Dose: 5 mg Documented By: MARIELENA Sertraline HCl (Sertraline Hcl 50 Mg Tablet) 150 mg PO DAILY [facility] Last Admin: 10/01/23 08:02 Dose: 150 mg Documented By: MARIELENA Sodium Chloride (0.9 % Sodium Chloride Flush 3 Ml Syringe) 3 ml IVFLUSH QSHIFT [facility] Last Admin: 10/01/23 08:04 Dose: 3 ml Documented By: MARIELENA Sodium Hypochlorite (Sodium Hypochlorite 0.125% 473 Ml Solution) 1 appl TOPICAL DAILY [facility] Last Admin: 10/01/23 08:08 Dose: Not Given Documented By: MARIELENA Non-Admin Reason: Duplicate Order Sodium Hypochlorite (Sodium Hypochlorite 0.125% 473 Ml Solution) 1 appl TOPICAL DAILY [facility] Last Admin: 10/01/23 10:30 Dose: 1 appl Documented By: MARIELENA Labs 10/01/23 07:30 09/30/23 05:51 Labs: Laboratory Results - last 24 hr 09/30/23 09/30/23 10/01/23 10:41 20:38 07:34 POC Glucose 261 H 152 H Blood Type A Positive Antibody Screen NEGATIVE Crossmatch See Detail 10/01/23 11:35 POC Glucose 227 H Blood Type Antibody Screen Crossmatch Assessment and Plan (1) Acute on chronic anemia: Status: Acute (2) Hypernatremia: Status: Acute (3) Type 2 diabetes mellitus: Status: Acute (4) Necrotizing soft tissue infection: Status: Acute Plan 48M PMH DM, morbid obesity, htn, mood disorder, KIM, presented 09/14/23 with perneal erythema, pain, 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 admitted to ICU, treated with vanco, zosyn, clinda, pressor support, insulin. underwent debridement 09/14/23 and 09/17/23. patient eventually extubated, weaned off pressors. downgraded 09/21/23. course complicated by acute blood loss and inflammatory anemia requiring transfusions, hypernatremia. 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 and IV meropenem from 09/21 to 09/25 s/p iv vanc, and zosyn initially, cultures negative on doxy and Augmentin for 1 week started on 09/25 end date 10/02 s/p debridements, gen surg following, continue dressing change as per General surgery and wound nurse, frequent position change. No fevers , WBC normalized, blood cultures negative. acute blood loss and inflammatory anemia. Received 1 unit of packed RBC on 09/29 hematocrit improved to 27.2, no active bleeding noted, iron studies not consistent with iron deficiency, normal B12 and folate Follow CBC DM with DKA dka resolved, elevated blood sugars slowly improving Lantus 20 units b.i.d. and insulin sliding scale, better blood sugar control Acute Hypokalemia likely due to GI loss resolved acute hypoxic respiratory failure due to sepsis extubated successfully, continue to wean o2, not on home oxygen, oxygenation dropped to 70s with activity. mohini resolved acute hypernatremia Sodium improved to 146 will continue to push by mouth fluid , follow BMP icu/critical illness myopathy Diet upgraded to thin liquids and modified solids need safe disposition to short-term rehab Recommend daily out of bed to chair. mood disorder Feels depressed evaluated by Psychiatry they recommend to increase dose of Zoloft to 150 and recommend to hold all other medications since psych feels patient was overmedicated and now sleeping well, not anxious, no suicidal ideation htn stable BP ,lisinopril on hold morbid obesity weight loss recommended KIM cpap at night dvt prophylaxis - lovenox Disposition patient requires long-term acute care hospital level of care for daily physician monitoring and intervention for significant necrotizing fasciitis ,complex wounds requiring extensive wound care, with progression to wound VAC next week, for a significant right posterior and lateral thigh wound measuring 15 cm x 27 cm x maximum depth of 7 cm at 03:00 o'clock location and also a left buttock wound measuring 1 cm x 3.5 cm x 0.1 cm, requiring Daily wound care, and repositioning every 2 hours, also requires close respiratory monitoring, not on home oxygen currently requiring 2 to 4 L of oxygen with gradual weaning, will require continued monitoring of labs due to anemia requiring blood transfusion and need close monitoring of vital signs, and requiring moderate to maximum assist for transfers. full code reason for continued hospitalization:severe electrolyte abnormalities, wound care, on antibiotics and safe disposition. Quality Stroke Does the patient have a stroke diagnosis?: No VTE Prior VTE?: No VTE Risk Level:: Medical - moderate - high VTE Device Contraindication: N/A - Device Ordered VTE Drug Contraindication: Treatment Not Tolerated
[2023-10-01 16:00] VITALS: BP 113/55; PULSE 71; RESP 18; TEMP 36.4; O2SAT 100
[2023-10-01 17:08] LABS: Glucose, Whole Blood 158 mg/dL (60-115)
[2023-10-01 19:11] VITALS: BP 114/56; PULSE 82; RESP 18; TEMP 36.3; O2SAT 100
[2023-10-01 20:13] LABS: Glucose, Whole Blood 215 mg/dL (60-115)
[2023-10-01 22:53] VITALS: BP 129/59; PULSE 69; RESP 18; TEMP 36.2; O2SAT 100
[2023-10-02 03:00] VITALS: BP 115/55; PULSE 84; RESP 18; TEMP 36.6; O2SAT 99
[2023-10-02 07:09] LABS: Glucose, Whole Blood 154 mg/dL (60-115)
[2023-10-02 07:18] VITALS: BP 126/59; PULSE 74; RESP 20; TEMP 36.5; O2SAT 98
[2023-10-02] MEDS: Insulin Lispro 100 UNIT/ML 3 ML VIAL SUBCUT ×3 (08:12→16:58)
[2023-10-02] MEDS: Amoxicillin/Potassium Clav 875 MG TABLET PO (08:13)
[2023-10-02] MEDS: Insulin Glargine,Hum.rec.anlog 100 UNIT/ML 10 ML VIAL 20 UNIT SUBCUT (08:13)
[2023-10-02] MEDS: Sertraline HCL 50 MG TABLET 150 MG PO (08:13)
[2023-10-02] MEDS: 0.9 % Sodium Chloride Flush 3 ML SYRINGE IVFLUSH (08:13)
[2023-10-02] MEDS: Doxycycline Monohydrate 100 MG CAPSULE PO (08:13)
[2023-10-02] MEDS: Cyanocobalamin (Vitamin B-12) 1,000 MCG TABLET 1000 MCG PO (08:13)
--- NOTE | 2023-10-02 08:21 | P.DS_ITS ---
DS: Providers Provider Date of Service: 10/02/23 Date of admission: 09/14/23 13:02 Date of discharge: 10/02/23 Primary care physician: Dillon Alcantara NP Consults: 09/14/23 16:33 Consult to General Surgery Stat Consulting Provider: [facility] [place] [facility] Reason for consultation: fourniers gangrene 09/14/23 17:00 Consult to General Surgery Routine Consulting Provider: Michael Matthew Reason for consultation: Jory's Gangrene Has provider been notified: Yes 09/19/23 18:47 Consult to Wound Care Routine Reason for consultation: right posterior thigh wound Has provider been notified: Yes 09/22/23 08:50 Consult to Infectious Diseases Routine Consulting Provider: [facility] [place] [facility] Reason for consultation: nec fasc 09/23/23 07:17 Consult to Nephrology Routine Consulting Provider: [facility] [place] [facility] Reason for consultation: hypernatremia Has provider been notified: No 09/26/23 08:10 Consult to Psychiatry Routine Consulting Provider: [facility] Reason for consultation: medication adjustment Has provider been notified: No DS: Diagnosis Discharge Diagnosis (1) Acute on chronic anemia: Status: Acute (2) Hypernatremia: Status: Acute (3) Type 2 diabetes mellitus: Status: Acute (4) Necrotizing soft tissue infection: Status: Acute DS: Summary Hospital Course Hospital Course: History of presenting illness: Date of Service: 09/14/23 Chief Complaint: Perineal Infection, Jory's Gangrene Patient is a 48 Y M with hypertension, diabetes mellitus, presenting with c/f perineal?infection, 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 admitted to ICU, treated with iv vanco, zosyn, clindamycin, pressor support, insulin. underwent debridement 09/14/23 and 09/17/23. patient eventually extubated, weaned off pressors. downgraded to intermediate care unit on 09/21/23. course complicated by acute blood loss and inflammatory anemia requiring transfusions, hypernatremia. 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 and IV meropenem from 09/21 to 09/25 , in regard to large right thigh wound daily dressings were done under surgical care with good response, therefore IV antibiotic discontinued and patient placed on po doxy and Augmentin started on 09/25 end date 10/02, patient followed closely by General surgery, right buttock and thigh wound is looking good with healthy granulation tissue, clean no pus, no cellulitis no ongoing necrotizing process is noted patient has had no fevers, WBC normalized and now being transferred to rehab facility for continued wound care, wound VAC can be placed at rehab. Acute blood loss and inflammatory anemia., no acute GI blood loss noted likely oozing from wound, patient treated with 1 unit of packed RBC on 09/24 5th hematocrit improved to 27.2, no active bleeding noted, iron studies not consistent with iron deficiency has normal B12 and folate recommend to follow CBC periodically. DKA with underlying history of type 2 diabetes mellitus, treated in ICU for DKA, noted to have continued high blood sugars therefore placed on Lantus 20 units b.i.d. and insulin sliding scale recommend diabetic diet and close point of care monitoring. Acute Hypokalemia likely due to GI loss resolved. Acute hypoxic respiratory failure due to sepsis extubated successfully, continue to wean o2, not on home oxygen, oxygenation drops with activity. David due to sepsis resolved. Acute hypernatremia likely due to poor by mouth intake resolved with fluids. ICU/critical illness myopathy recommend aggressive physical therapy, ensure max 330 mg b.i.d., tolerating chopped advanced diet Mood disorder patient complained of depression therefore evaluated by Psychiatry, they recommend to continue Zoloft 150 mg ,and to hold all other home medications, since it was felt that patient was overmedicated patient has no anxiety symptoms and no suicidal ideation. Hypertension stable blood pressures home dose of lisinopril discontinued. Morbid obesity recommend low-calorie diabetic diet KIM continue CPAP at night Time Attestation Discharge Coordination Time (in mins): 40 Quality: Safe Use of Opioids Does Pt have an Active Cancer Diagnosis on the Problem List?: No Quality: Stroke Does the patient have a stroke diagnosis?: No Physical Exam Vital Signs: Vital Signs: Last Vital Signs Temp 97.7 F 10/02/23 07:18 Pulse 74 10/02/23 07:18 Resp 20 10/02/23 07:18 BP 126/59 L 10/02/23 07:18 Pulse Ox 98 10/02/23 07:18 O2 Del Method Room Air 10/02/23 07:18 O2 Flow Rate 2 10/01/23 22:53 FiO2 30 09/20/23 11:33 BMI result Body Mass Index 50.2 Const: Other: General awake alert, in no acute distress. Neck no JVD. CVS regular rate rhythm, Respiratory lungs clear to auscultation, no respiratory distress, no wheeze, no rhonchi. Gastrointestinal abdomen soft, no rebound, no rigidity, no palpable mass, bowel sounds audible. Large open wound on the right buttock and thigh with good, healthy granulation, clean, no pus, no cellulitis, no ongoing necrotizing process Extremities no edema. 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 Dakin's Solution 0.125 % Solution 1 appl topical DAILY Qty: 473 0RF amoxicillin-pot clavulanate 875-125 mg Tablet 1 tab PO BID Qty: 4 0RF insulin lispro [Admelog U-100 Insulin lispro] 100 unit/mL Solution See Protocol subcut QIDACHS Qty: 10 0RF Protocol: Insulin Correction Scale Less than or equal to 110 ---- Give (units): 0 111 to 150 Give (units): 0 151 to 200 Give (units): 2 201 to 250 Give (units): 10 251 to 300 Give (units): 12 301 to 350 Give (units): 14 Greater than 350 Give (units): 16 Call MD if Blood Glucose > : 350 Rx Instructions: BG <111 0 units, 111-150 - 0 units, 151-200 2 units, 201-250 4 units, 251-300 6 units, 301-350 8 units, >350 10 units insulin glargine [Lantus U-100 Insulin] 100 unit/mL Solution 20 unit subcut BID Qty: 10 0RF doxycycline monohydrate 100 mg Capsule 100 mg PO BID Qty: 4 0RF sertraline 50 mg Tablet 150 mg PO DAILY Qty: 30 0RF Continued cyanocobalamin (vitamin B-12) 1,000 mcg tablet 1 tab PO DAILY cholecalciferol (vitamin D3) [Vitamin D3] 50 mcg (2,000 unit) capsule 1 cap PO DAILY Jardiance 25 mg tablet 1 tab PO DAILY Asmanex HFA 200 mcg/actuation HFA aerosol inhaler 1 puff INHALATION BID Discontinued ropinirole 1 mg tablet 1 tab PO BEDTIME lisinopril 20 mg tablet 1 tab PO DAILY sertraline 100 mg tablet 2 tab PO DAILY clonazepam 1 mg tablet 1 tab PO BID tramadol 50 mg tablet 1 - 2 tab PO Q8H PRN (Reason: Pain) gabapentin 300 mg capsule 1 cap PO BID mirtazapine 45 mg tablet 1 tab BEDTIME Trulicity 4.5 mg/0.5 mL pen injector 0.5 ml subcut QWEEK ziprasidone HCl 40 mg capsule 40 mg PO DAILY@1800 Discharge Orders: Discharge Order (Routine); Ordered 10/02/23 Ordered By: Stacy Francis Diet: Diabetic diet Activity on Discharge: As tolerated Stand Alone Forms: Patient Portal Discharge page Print Language: Singaporean Care Plan Goals: Thigh wound, status post multiple debridement continue wound care, wound VAC can be placed today. Monitor CBC periodically Aggressive physical therapy/deconditioning due to prolonged hospitalization Health Concerns: Diabetes mellitus follow diabetic diet adjust dose of insulin as needed Depression continue medications as prescribed Plan of Treatment: Outpatient follow-up with primary care physician call for appointment Gout patient follow-up with general surgeon Dr. Matthew call for appointment 1- 2 weeks Assessment: As above.
[2023-10-02] MEDS: clonazePAM 0.5 MG TABLET PO (09:47)
--- NOTE | 2023-10-02 10:52 | MHC.CM.PN ---
Per Shanika's request (daytime staffing issues), transport has been changed to 5PM apple picker, torres has been inserted (Shanika aware) and wound vac to be placed cat Janea tomorrow (MD aware).
[2023-10-02 11:18] VITALS: BP 127/63; PULSE 71; RESP 18; TEMP 37.1; O2SAT 98
[2023-10-02 11:27] LABS: Glucose, Whole Blood 180 mg/dL (60-115)
[2023-10-02] MEDS: Enoxaparin Sodium 40 MG/0.4 ML SYRINGE SUBCUT (11:41)
[2023-10-02] MEDS: Loperamide HCl 2 MG CAPSULE 4 MG PO (14:32)
[2023-10-02 15:12] VITALS: BP 125/60; PULSE 77; RESP 20; TEMP 36.7; O2SAT 97
[2023-10-02 16:21] LABS: Glucose, Whole Blood 184 mg/dL (60-115)
== END 2023-10-02 17:31 | disposition other institution (70) | DRG 720 ==
LOC: HO.ED 11:45 → HO.EDOVER 13:06 → HO.ICU 13:11 → HO.IMC 09-21 13:47
PROVIDERS: Anesthesiology; Internal Medicine; Internal Medicine Pulmonary Disease; Physician Assistant; Physician Assistant Medical; Registered Nurse Community Health; Surgery; Admitting Provider Internal Medicine Critical Care Medicine; Emergency Provider Student in an Organized Health Care Education/Training Program; PCP Registered Nurse; Referring Provider Registered Nurse; Visit Provider Hospitalist
PROC: 0JBL0ZZ Excision of Right Upper Leg Subcutaneous Tissue and Fascia, Open Approach (ICD-10-PCS; principal; 2023-09-14 16:30)
DX: A41.9 Sepsis, unspecified organism (principal); J96.01 Acute respiratory failure with hypoxia; R65.21 Severe sepsis with septic shock; G72.81 Critical illness myopathy; M72.6 Necrotizing fasciitis; E83.39 Other disorders of phosphorus metabolism; D62 Acute posthemorrhagic anemia; E11.10 Type 2 diabetes mellitus with ketoacidosis without coma; N17.9 Acute kidney failure, unspecified; N49.3 Fournier gangrene; E87.6 Hypokalemia; F33.1 Major depressive disorder, recurrent, moderate; E87.0 Hyperosmolality and hypernatremia; E88.09 Other disorders of plasma-protein metabolism, not elsewhere classified; I10 Essential (primary) hypertension; E11.21 Type 2 diabetes mellitus with diabetic nephropathy; E66.01 Morbid (severe) obesity due to excess calories; Z68.43 Body mass index [BMI] 50.0-59.9, adult; G47.33 Obstructive sleep apnea (adult) (pediatric); F17.210 Nicotine dependence, cigarettes, uncomplicated; Z71.6 Tobacco abuse counseling; Z79.4 Long term (current) use of insulin; Z79.899 Other long term (current) drug therapy; D64.89 Other specified anemias
CPT/HCPCS: 36415; 36600; 71045; 72193; 80048; 80053; 80202; 81001; 82010; 82040; 82271; 82310; 82607; 82728; 82746; 82803; 82947; 83540; 83605; 83735; 84100; 85007; 85014; 85018; 85025; 85027; 85652; 86140; 86850; 86900; 86901; 86923; 87040; 87493; 88304; 92526; 92610; 93005; 94002; 94003; 97116; 97162; 97166; 97530; 99284; C1758; J0131; J0613; J0736; J0878; J1170; J1205; J1650; J1670; J1940; J2185; J2250; J2251; J2371; J2470; J2543; J2598; J2704; J2795; J3010; J3370; J3371; J3480; J7120; P9016; P9047; Q9967

== ENCOUNTER → 2023-09-14 10:34 | Outpatient (BNV) | payer MEDICAID, SELFPAY | PROVIDERS: Admitting Provider Internal Medicine Critical Care Medicine; Emergency Provider Student in an Organized Health Care Education/Training Program; Visit Provider Internal Medicine Cardiovascular Disease | DX: R00.0 Tachycardia, unspecified (principal) | CPT/HCPCS: 93010 ==

== ENCOUNTER → 2023-09-14 13:02 | Outpatient (BNV) | payer MEDICAID, SELFPAY | PROVIDERS: Admitting Provider Internal Medicine Critical Care Medicine; Emergency Provider Student in an Organized Health Care Education/Training Program; Visit Provider Surgery | DX: M79.89 Other specified soft tissue disorders (principal) | CPT/HCPCS: 11042; 11045; 97602; 99232; 99499 ==

== ENCOUNTER → 2023-09-14 13:02 | Outpatient (BNV) | payer OTHER, SELFPAY | PROVIDERS: Admitting Provider Internal Medicine Critical Care Medicine; Emergency Provider Student in an Organized Health Care Education/Training Program; PCP Registered Nurse; Visit Provider Clinical Nurse Specialist Psychiatric/Mental Health | DX: F33.1 Major depressive disorder, recurrent, moderate (principal) | CPT/HCPCS: 99233 ==

== ENCOUNTER → 2023-09-14 13:02 | Outpatient (BNV) | payer MEDICAID, SELFPAY | PROVIDERS: Admitting Provider Internal Medicine Critical Care Medicine; Emergency Provider Student in an Organized Health Care Education/Training Program; Visit Provider Internal Medicine Critical Care Medicine | DX: N49.3 Fournier gangrene (principal); E66.01 Morbid (severe) obesity due to excess calories | CPT/HCPCS: 36556; 36620; 99222; 99291 ==

== ENCOUNTER → 2023-09-14 13:02 | Outpatient (BNV) | payer MEDICAID, SELFPAY | PROVIDERS: Admitting Provider Internal Medicine Critical Care Medicine; Emergency Provider Student in an Organized Health Care Education/Training Program; PCP Registered Nurse; Visit Provider Internal Medicine | DX: E11.52 Type 2 diabetes mellitus with diabetic peripheral angiopathy with gangrene (principal); N49.3 Fournier gangrene; E87.0 Hyperosmolality and hypernatremia | CPT/HCPCS: 99233; 99239 ==

== ENCOUNTER → 2023-09-14 13:02 | Outpatient (BNV) | payer MEDICAID, SELFPAY | PROVIDERS: Admitting Provider Internal Medicine Critical Care Medicine; Emergency Provider Student in an Organized Health Care Education/Training Program; PCP Registered Nurse; Visit Provider Internal Medicine Nephrology | DX: E87.0 Hyperosmolality and hypernatremia (principal) | CPT/HCPCS: 99223; 99232 ==

== ENCOUNTER → 2023-09-14 13:02 | Outpatient (BNV) | payer MEDICAID, SELFPAY | PROVIDERS: Admitting Provider Internal Medicine Critical Care Medicine; Emergency Provider Student in an Organized Health Care Education/Training Program; PCP Registered Nurse; Visit Provider Internal Medicine | DX: E11.9 Type 2 diabetes mellitus without complications (principal); M79.89 Other specified soft tissue disorders; L08.9 Local infection of the skin and subcutaneous tissue, unspecified; E66.01 Morbid (severe) obesity due to excess calories; N49.3 Fournier gangrene | CPT/HCPCS: 99222 ==

== ENCOUNTER → 2023-09-14 13:02 | Outpatient (BNV) | payer MEDICAID, SELFPAY | PROVIDERS: Admitting Provider Internal Medicine Critical Care Medicine; Emergency Provider Student in an Organized Health Care Education/Training Program; PCP Registered Nurse; Visit Provider Internal Medicine Pulmonary Disease | DX: M79.89 Other specified soft tissue disorders (principal); N49.3 Fournier gangrene; E11.10 Type 2 diabetes mellitus with ketoacidosis without coma; A41.9 Sepsis, unspecified organism | CPT/HCPCS: 99233; 99291 ==

== ENCOUNTER 2023-10-24 13:51 | Outpatient (AMB) | payer MEDICAID, SELFPAY ==
--- NOTE | 2023-10-24 13:52 | A.OFFVIS_ITS ---
Vital Signs 10/24/23 13:56 Comment Pt in a stretcher Intake Visit Reasons: Necrotizing soft tissue infection Allergies No Known Allergies Allergy (Verified 09/14/23 11:03) HPI HPI Necrotizing soft tissue infection: Details: 48-year-old male here for a postop visit. He had undergone multiple extensive debridement of the right buttock and perineal areas in the operating room for necrotizing soft tissue infection starting September 21, 2023. He was in intensive care unit and was on the ventilator for several days thereafter because of sepsis. He was also in DKA on admission at that time. He was eventually discharged to [facility] in [place] for wound care with a wound VAC. He currently says that he is feeling much better. He is ambulating and looks well. [facility] Medical History Necrotizing soft tissue infection Soft tissue infection Morbid obesity Back pain KIM (obstructive sleep apnea) Anxiety and depression Elevated WBCs Type 2 diabetes mellitus HTN (hypertension) Surgical History Hx of surgical procedure (~09/17/23) Hx of oral surgery Social History Household Members: None Housing: Apartment Do you presently have visiting nurse or other home services: Yes ([employer] 4 times a week) Alcohol intake: never Patient Tobacco Use Status: Current everyday Tobacco user Tobacco use type: Cigarette Cigarettes Per Day: 2 Years Smoked: 25 e-Cigarette/Vaping Use: Never Used Substance Use Type: Marijuana Advance Directives Date on File: 09/14/23 service: No Review of Systems Const Denies chills and Denies fever(s) Card Denies chest pain, Denies dyspnea and Denies dyspnea on exertion Resp Denies cough, Denies dyspnea and Denies dyspnea on exertion GI Denies hematochezia and Denies change in bowel habits Denies hematuria and Denies difficulty urinating Musc Denies back pain and Denies limited range of motion Neuro Denies focal weakness and Denies convulsions Psych Denies depression and Denies mood swings Physical Exam Const Other: Morbidly obese, looks well General: comfortable and no acute distress Resp Effort & Inspection: normal respiratory effort Back/Spine/Pelvis Other: Large open wound on the right buttock all the way to the posterior thigh, good healthy granulation, clean, Assessment & Plan Assessment & Plan (1) Necrotizing soft tissue infection: Code(s): M79.89 - Other specified soft tissue disorders Category: Medical Plan: Status post multiple wide excisional debridement. His open wound is healing well. It was note of good healthy granulation He should continue with the wound VAC. I will set him up with the Wound Clinic here at the [facility] so he can be back at home. He can follow up with me down the line as well I emphasized to him the importance of good blood sugar control Coding Level of Care Code Global (70172) Diagnoses Necrotizing soft tissue infection M79.89
== END 2023-10-24 14:11 | disposition home or self-care (01) ==
PROVIDERS: PCP Registered Nurse; Visit Provider Surgery
DX: M79.89 Other specified soft tissue disorders (principal)
CPT/HCPCS: 99024

== ENCOUNTER → 2023-10-24 13:51 | Outpatient (BNVA) | payer OTHER, SELFPAY | PROVIDERS: PCP Registered Nurse; Visit Provider Surgery | DX: R79.89 Other specified abnormal findings of blood chemistry (principal) | CPT/HCPCS: 99212 ==

== ENCOUNTER 2023-11-09 14:05 | Outpatient (REF) | payer MEDICAID, SELFPAY ==
[2023-11-09 16:10] LABS: MANUAL DIFF FLAG NO
[2023-11-09 16:16] LABS: Basophils Absolute Auto 0.1 X10*3/uL (0.0-0.2); Basophils Percent Auto 0.4 % (0-2); Eosinophils Absolute Auto 0.3 X10*3/uL (0.0-0.4); Eosinophils Percent Auto 2.1 % (0-4); Hemoglobin 10.2 g/dl (14.0-18.0); Imm Gran Abs Auto 0.08 X10*3/uL (0.00-0.03); Imm Gran Pct Auto 0.6 % (0.0-0.4); Lymphocytes Percent Auto 23.5 % (20-40); Mean Corpuscular HGB Conc 30.9 g/dl (31.0-36.0); Mean Corpuscular Hemoglobin 27.2 pg (27.0-33.0); Mean Platelet Volume 8.7 fL (9.4-12.4); Monocytes Absolute Auto 0.6 X10*3/uL (0.1-1.2); Monocytes Percent Auto 4.5 % (2-11); Neutrophils Absolute Auto 8.9 x10*3/uL (2.0-8.3); Neutrophils Percent Auto 68.9 % (45-73); Platelet Count 387 X10*3/uL (160-400); Red Blood Count 3.75 X10*6/uL (4.60-5.80); Red Cell Distribution Width 15.8 % (11.0-16.0)
[2023-11-09 16:53] LABS: Erythrocyte Sedimentation Rate 51 MM/HR (0-15)
[2023-11-09 17:52] LABS: Alanine Aminotransferase 14 U/L (0-40); Albumin Level 3.2 g/dL (3.5-5.0); Alkaline Phosphatase 65 U/L (39-117); Anion Gap 11 (12-20); Aspartate Amino Transferase 16 U/L (5-37); Bilirubin Total 0.1 mg/dL (0.0-1.0); Blood Urea Nitrogen 9 mg/dL (9-16); C Reactive Protein 5.03 mg/dL (< or = 0.50); Calcium 8.9 mg/dL (8.4-10.2); Carbon Dioxide 25 mmol/L (22-29); Chloride 108 mmol/L (96-108); Estimated Glomerular Filt Rate > 60; Glucose Random 98 mg/dL (60-115); Potassium 3.9 mmol/L (3.3-5.1); Sodium 140 mmol/L (135-145); Total Protein 6.5 g/dL (6.5-8.0)
== END 2023-11-09 14:06 | disposition home or self-care (01) ==
LOC: HO.HHCL 14:05
PROVIDERS: Visit Provider General Practice
DX: D64.9 Anemia, unspecified (principal); E83.42 Hypomagnesemia; N49.3 Fournier gangrene
CPT/HCPCS: 36415; 80053; 83735; 85025; 85652; 86140

== ENCOUNTER 2023-11-28 12:26 | Outpatient (REF) | payer MEDICAID, SELFPAY | END 2023-11-28 12:27 | disposition home or self-care (01) | LOC: HO.HHCL 12:26 | PROVIDERS: Visit Provider Nurse Practitioner Family | DX: Z13.89 Encounter for screening for other disorder (principal) ==

== ENCOUNTER 2024-01-09 10:50 | Outpatient (AMB) | payer MEDICAID, SELFPAY ==
--- NOTE | 2024-01-09 10:50 | MHC.OFFVIS ---
Vital Signs 01/09/24 10:51 Height 5 ft 6 in Weight 319 lb BMI 51.5 BP 137/64 Blood Pressure Location Rt brachial Position Sitting Pulse 97 Intake Visit Reasons: Necrotizing soft tissue infection, poss skin graft Intake Note: This patient presents for wound check, nercotizing soft tissue infection. Pt c/o; reports pain. Casino Slot Supervisor Required: No Accompanied by: Other Relationship Allergies No Known Allergies Allergy (Verified 01/09/24 11:00) HPI HPI Necrotizing soft tissue infection, poss skin graft: Details: 48-year-old male here for a follow-up visit. He had undergone wide excision of necrotizing soft tissue infection involving the right buttock , thigh and groin in the OR on September 14, 2023 and 09/17/2023. He has been undergoing wound care the Wound Clinic. He has had significant improvements since that time. He has gained some weight. He has this chronic pain on the right leg and uses a cane now. Overall, he says that he is doing much better. He is on diabetes medications now. [facility] Medical History (Updated 01/09/24 @ 11:12 by Michael Matthew MD) Open wound Necrotizing soft tissue infection Soft tissue infection Morbid obesity Back pain KIM (obstructive sleep apnea) Anxiety and depression Elevated WBCs Type 2 diabetes mellitus HTN (hypertension) Surgical History Hx of surgical procedure (~09/17/23) Hx of oral surgery Social History Household Members: None Housing: Apartment Do you presently have visiting nurse or other home services: Yes (CAT[employer]OG SPECIALIST 4 times a week) Alcohol intake: never Patient Tobacco Use Status: Current everyday Tobacco user Tobacco use type: Cigarette Cigarettes Per Day: 2 Years Smoked: 25 e-Cigarette/Vaping Use: Never Used Substance Use Type: Marijuana Advance Directives Date on File: 09/14/23 service: No Review of Systems Const Denies chills and Denies fever(s) Card Denies chest pain Resp Denies cough GI Denies abdominal pain Denies difficulty urinating Musc Reports abnormal gait and Reports back pain Neuro Reports abnormal gait Physical Exam Const Other: Morbidly obese General: comfortable and no acute distress Resp Effort & Inspection: normal respiratory effort Cardio Rate: regular rate GI Palpation (GI): Soft to palpation Back/Spine/Pelvis Other: Open wound, on the posterior thigh and right buttock now superficial, much smaller in surface area, triangular in shape, maybe about 9 cm in widest dimension, clean, no cellulitis Assessment & Plan Assessment & Plan (1) Open wound: Code(s): T14.8XXA - Other injury of unspecified body region, initial encounter Category: Medical Plan: He has an open wound on the posterior thigh and buttock after aggressive debridement for soft tissue necrotizing infection last 09/25/2023. This wound actually has significantly decreased in surface area. This also now superficial. This appears clean. I have changed his dressings. I have use dry gauze for now I explained to him and his daughter the option of skin grafting. I detail the technique of this procedure. I reviewed the risks including but not limited to bleeding, further infections, inherent risks of anesthesia, he was the benefits and alternatives He does present with significant anesthesia risks as well in view of morbid obesity. At this time, the daughter prefers to hold off on any further surgical intervention especially in view of the marked improvement of the wound We will see him again in the office in about a month. Medications: New tramadol ok to take 1-2 tabs every 8 hours as needed 50 mg PO Q8H PRN 30 tabs 0RF pain Coding Level of Care Code Est Pt Level 3 (61050) Diagnoses Open wound T14.8XXA
[2024-01-09 10:51] VITALS: BP 137/64; PULSE 97; BMI 51.5
== END 2024-01-09 11:14 | disposition home or self-care (01) ==
PROVIDERS: PCP Nurse Practitioner Family; Visit Provider Surgery
DX: T14.8XXA Other injury of unspecified body region, initial encounter (principal)
CPT/HCPCS: 99213

== ENCOUNTER → 2024-01-09 10:50 | Outpatient (BNVA) | payer MEDICAID, SELFPAY | PROVIDERS: PCP Nurse Practitioner Family; Visit Provider Surgery | DX: S31.819D Unspecified open wound of right buttock, subsequent encounter (principal); S71.101D Unspecified open wound, right thigh, subsequent encounter | CPT/HCPCS: 99212 ==

== ENCOUNTER 2024-01-21 08:30 | Outpatient (REF) | payer MEDICAID, SELFPAY ==
[2024-01-21 12:13] LABS: MANUAL DIFF FLAG NO
[2024-01-21 12:30] LABS: Basophils Percent Auto 0.4 % (0-2); Eosinophils Absolute Auto 0.1 X10*3/uL (0.0-0.4); Eosinophils Percent Auto 1.2 % (0-4); Hematocrit 40.1 % (42.0-52.0); Imm Gran Abs Auto 0.07 X10*3/uL (0.00-0.03); Imm Gran Pct Auto 0.7 % (0.0-0.4); Lymphocytes Absolute Auto 2.8 X10*3/uL (1.2-4.9); Lymphocytes Percent Auto 26.1 % (20-40); Mean Corpuscular HGB Conc 32.4 g/dl (31.0-36.0); Mean Corpuscular Hemoglobin 26.5 pg (27.0-33.0); Mean Corpuscular Volume 81.7 fL (80.0-98.0); Mean Platelet Volume 9.3 fL (9.4-12.4); Monocytes Absolute Auto 0.5 X10*3/uL (0.1-1.2); Monocytes Percent Auto 4.8 % (2-11); Neutrophils Absolute Auto 7.2 x10*3/uL (2.0-8.3); Neutrophils Percent Auto 66.8 % (45-73); Platelet Count 306 X10*3/uL (160-400); Red Blood Count 4.91 X10*6/uL (4.60-5.80); Red Cell Distribution Width 16.9 % (11.0-16.0); White Blood Count 10.7 X10*3/uL (4.8-10.8)
[2024-01-21 12:40] LABS: Estimated Average Glucose 140 mg/dL; Hemoglobin A1C 158.2028 umol/L; Hemoglobin A1c % 6.5 % (<6.0); Total Hemoglobin (HGBA1C) 3338.7367 umol/L
[2024-01-21 12:50] LABS: Alanine Aminotransferase 15 U/L (0-40); Albumin Level 3.8 g/dL (3.5-5.0); Alkaline Phosphatase 107 U/L (39-117); Anion Gap 12 (12-20); Aspartate Amino Transferase 20 U/L (5-37); Bilirubin Total 0.3 mg/dL (0.0-1.0); Blood Urea Nitrogen 16 mg/dL (9-16); Calcium 9.1 mg/dL (8.4-10.2); Carbon Dioxide 26 mmol/L (22-29); Chloride 103 mmol/L (96-108); Cholesterol 149 mg/dL (<200); Estimated Glomerular Filt Rate > 60; Glucose Random 96 mg/dL (60-115); HDL Cholesterol 60 mg/dL (>40); LDL Cholesterol Calculated 61 mg/dL (<100); Potassium 3.7 mmol/L (3.3-5.1); Sodium 137 mmol/L (135-145); Total Protein 7.2 g/dL (6.5-8.0); Triglycerides 144 mg/dL (<150)
[2024-01-21 14:05] LABS: Oxycodone Screen Urine Not Detected (Not Detect)
== END 2024-01-21 08:31 | disposition home or self-care (01) ==
LOC: HO.HHCL 08:30
PROVIDERS: Visit Provider Nurse Practitioner Family
DX: E11.9 Type 2 diabetes mellitus without complications (principal); G89.29 Other chronic pain
CPT/HCPCS: 36415; 80053; 80061; 80307; 83036; 85025

== ENCOUNTER 2024-02-07 09:17 | Outpatient (AMB) | payer MEDICAID, SELFPAY ==
[2024-02-07 09:18] VITALS: BMI 54.9
--- NOTE | 2024-02-07 09:18 | MHC.OFFVIS ---
Vital Signs 02/07/24 09:18 Height 5 ft 6 in Weight 340 lb BMI 54.9 Intake Visit Reasons: 1 month Follow up skin infection Intake Note: This patient presents for wound check. Pt c/o; reports no complaints at this time. Interventional Sale Consultant Required: No Accompanied by: Self / Same As Patient Allergies No Known Allergies Allergy (Verified 02/07/24 09:24) Medication List - Last Reconciled 02/07/24 by Michael Matthew MD amoxicillin-pot clavulanate 875-125 mg 1 tab PO BID cholecalciferol (vitamin D3) (Vitamin D3) 1 cap PO DAILY cyanocobalamin (vitamin B-12) 1 tab PO DAILY doxycycline monohydrate 100 mg PO BID empagliflozin (Jardiance) 1 tab PO DAILY insulin glargine (Lantus U-100 Insulin) 20 units (0.2 mL) subcut BID insulin lispro (Admelog U-100 Insulin lispro) See Protocol units subcut QIDACHS mometasone 200 mcg/actuation (Asmanex HFA) 1 puff inhalation BID oxycodone 5 mg PO Q6H PRN sertraline 150 mg (3 x 50 mg) PO DAILY sodium hypochlorite 0.125% (Dakin's Solution) 1 appl topical DAILY tramadol 50 mg PO Q8H PRN HPI HPI 1 month Follow up skin infection: Details: He continues to do well after excisional debridement for necrotizing infection of the right buttock and thigh last September,. He has a small residual open wound which is granulating well. He does admit to having gained more weight and he blames it on depression. [facility] Medical History (Updated 02/07/24 @ 09:31 by Michael Matthew MD) Morbid obesity with BMI of 50.0-59.9, adult Open wound Necrotizing soft tissue infection Soft tissue infection Morbid obesity Back pain KIM (obstructive sleep apnea) Anxiety and depression Elevated WBCs Type 2 diabetes mellitus HTN (hypertension) Surgical History Hx of surgical procedure (~09/17/23) Hx of oral surgery Social History Household Members: None Housing: Apartment Do you presently have visiting nurse or other home services: Yes ([employer] 4 times a week) Alcohol intake: never Patient Tobacco Use Status: Current everyday Tobacco user Tobacco use type: Cigarette Cigarettes Per Day: 2 Years Smoked: 25 e-Cigarette/Vaping Use: Never Used Substance Use Type: Marijuana Advance Directives Date on File: 09/14/23 service: No Review of Systems Const Denies chills and Denies fever(s) Card Denies chest pain Resp Denies cough GI Denies abdominal pain Physical Exam Vital Signs: BMI result Body Mass Index 54.9 Const Other: Morbidly obese General: comfortable and no acute distress Resp Effort & Inspection: normal respiratory effort Cardio Rate: regular rate GI Other: Has a very large pannus Back/Spine/Pelvis Other: Open wound in the right buttock area now much smaller in size, granulating well, dry, Assessment & Plan Assessment & Plan (1) Open wound: Code(s): T14.8XXA - Other injury of unspecified body region, initial encounter Category: Medical Plan: This continues to heal well. This is now down to a small residual open wound with good healthy granulation tissue I explained to him that this should continue to completely reepithelialized I did advise him the benefits of weight loss as his BMI is now dangerously high at 54. He can follow up on a p.r.n. basis. (2) Morbid obesity with BMI of 50.0-59.9, adult: Code(s): E66.01 - Morbid (severe) obesity due to excess calories; Z68.43 - Body mass index [BMI] 50.0-59.9, adult Category: Medical Plan: He has gained more weight and I explained to him the benefits of weight loss to his overall health including his diabetes. I offered to set him up with the [facility] but he says he he is not willing to do this at this time. Coding Level of Care Code Est Pt Level 3 (15753) Diagnoses Open wound T14.8XXA Morbid obesity with BMI of 50.0-59.9, adult E66.01; Z68.43
== END 2024-02-07 09:41 | disposition home or self-care (01) ==
PROVIDERS: PCP Nurse Practitioner Family; Visit Provider Surgery
DX: T14.8XXA Other injury of unspecified body region, initial encounter (principal); E66.01 Morbid (severe) obesity due to excess calories; Z68.43 Body mass index [BMI] 50.0-59.9, adult
CPT/HCPCS: 99213

== ENCOUNTER → 2024-02-07 09:17 | Outpatient (BNVA) | payer MEDICAID, SELFPAY | PROVIDERS: PCP Nurse Practitioner Family; Visit Provider Surgery | DX: Z48.01 Encounter for change or removal of surgical wound dressing (principal); S39.82XD Other specified injuries of lower back, subsequent encounter; E66.01 Morbid (severe) obesity due to excess calories; Z68.43 Body mass index [BMI] 50.0-59.9, adult | CPT/HCPCS: 99212 ==

== ENCOUNTER 2024-05-01 13:09 | Outpatient (RCR) | payer MEDICAID, SELFPAY | END 2024-07-24 12:10 | disposition home or self-care (01) | LOC: HO.WCC 13:09 | PROVIDERS: PCP Nurse Practitioner Family; Visit Provider Surgery | DX: T81.31XD Disruption of external operation (surgical) wound, not elsewhere classified, subsequent encounter (principal); S71.101D Unspecified open wound, right thigh, subsequent encounter; Z79.85 Long-term (current) use of injectable non-insulin antidiabetic drugs; Z79.891 Long term (current) use of opiate analgesic; Z79.899 Other long term (current) drug therapy | CPT/HCPCS: 11042; 11045; 17250; 97597; 97598; 97606; 99212; 99213 ==

== ENCOUNTER 2024-07-17 08:48 | Outpatient (REF) | payer MEDICAID, SELFPAY ==
--- OUTSIDE RECORDS SUMMARY | 2024-07-17 09:13 | XMS_ITS | Encounter Summary ---
Author Organization [employer] Address [address] [place] [address] Care Team Providers Care Hammer Setter Name Role Phone Kristi BaeP Primary Care Provider [phone] Lois Gaming NP Primary Care Provider [phone] Reason for Visit * Reason Onset Date Comments Medication Question 02/21/2023 Encounter Details Date Type Department Care Team ([facility] st Contact Info) Description 02/21/2023 Telephone [facility] MED[facility]INE [address] [place], [place] [phone] Kristi Bae FNP [address], [place] [phone] Medication Question Social History Tobacco Use Types Packs/Day Years Used Date Smoking Tobacco: Every Day Cigarettes Smokeless Tobacco: Never Alcohol Use Standard Drinks/Week Comments Never 0 (1 standard drink = 0.6 oz pur e alcohol) Depression Answer Date Recorded Patient Health Questionnaire-9 Score 17 02/15/2022 Housing Stability Answer Date Recorded What is your housing situation today? I have adams gutiérrez 02/23/[address] you li ve. Do you have problems with any of the following? None of the above 02/23/2023 Food Insecurity Answer Date Recorded Within the past 12 months, y ou worried that your food would run out before you got money to buy more: Never True 02/23/2023 Within the past 12 months,th e food you bought just didn't last and you didn't have enough money to get more: Never True Transportation Answer Date Recorded In the past 12 months, has l ack of transportation kept you from medical appts, meetings, work or from getting things needed for daily living? No 02/23/2023 Utilities Answer Date Recorded In the past 12 months, has t he electric, gas, oil or water company threatened to shut off services in your home? No 02/23/2023 Depression Answer Date Recorded Patient Health Questionnaire-2 Score 6 02/15/2022 Sex and Gender Information Value Date Recorded Sex Assigned at Male 12/05/2021 10:19 AM EDT Legal Sex Male 10:19 AM EDT Gender Identity Male 12/05/2021 10:19 AM EDT Sexual Orientation Choose not to disclose 2021 10:19 AM EDT documented as of this encounter Miscellaneous Notes * Telephone Encounter - Gabi Freedom - 02/21/2023 3:49 PM EST Tc from pt states he is due for Trulicity 4.5 MG/0.5ML solution pen-injector tomorrow (02/22) and states all pharmacies he contacted are on back order. Would like to know if PCP would like to send an alternative until pharmacies have Trulicity. Please contact pt at [phone] documented in this encounter Plan of Treatment Upcoming Encounters Date Type Department Care Team (Late st Contact Info) Description 07/25/2024 3:30 PM EDT Office Visit [facility]INE [address] [place] [address] Lois Gaming NP [address] [place] [address] 08/27/2024 2:00 PM EDT Office Visit [facility] OPTOMETRY [address] [place] [address] Anitha Villanueva, OD [address] [place] [address] 10/15/2024 9:00 AM EDT Clinical Support [facility] [address] [place] [address] Deborah Logan RN documented as of this encounter Visit Diagnoses Not on filedocumented in this encounter Additional Health Concerns Assessment Noted Time PHQ-9 Depression Total Score: 17 023 9:10 AM EST documented as of this encounter Care Teams Hammer Setter Relationship Specialty Start Date End Date Kristi Bae FNP [address] [place] [address] PCP - General Family Medicine 10/16/22 10/04/23 Lois Gaming NP [address] [place] [address] PCP - General Family Medicine 10/05/23 [facility] 11/11/23 documented as of this encounter
[2024-07-17 11:17] LABS: MANUAL DIFF FLAG NO
[2024-07-17 11:28] LABS: Basophils Percent Auto 0.4 % (0-2); Eosinophils Absolute Auto 0.1 X10*3/uL (0.0-0.4); Eosinophils Percent Auto 1.1 % (0-4); Hematocrit 41.1 % (42.0-52.0); Hemoglobin 13.3 g/dl (14.0-18.0); Imm Gran Abs Auto 0.04 X10*3/uL (0.00-0.03); Imm Gran Pct Auto 0.4 % (0.0-0.4); Lymphocytes Absolute Auto 2.3 X10*3/uL (1.2-4.9); Lymphocytes Percent Auto 22.1 % (20-40); Mean Corpuscular HGB Conc 32.4 g/dl (31.0-36.0); Mean Corpuscular Hemoglobin 27.8 pg (27.0-33.0); Mean Corpuscular Volume 85.8 fL (80.0-98.0); Mean Platelet Volume 9.3 fL (9.4-12.4); Monocytes Absolute Auto 0.6 X10*3/uL (0.1-1.2); Monocytes Percent Auto 5.3 % (2-11); Neutrophils Absolute Auto 7.3 x10*3/uL (2.0-8.3); Neutrophils Percent Auto 70.7 % (45-73); Platelet Count 295 X10*3/uL (160-400); Red Blood Count 4.79 X10*6/uL (4.60-5.80); Red Cell Distribution Width 14.9 % (11.0-16.0); White Blood Count 10.3 X10*3/uL (4.8-10.8)
[2024-07-17 11:32] LABS: Estimated Average Glucose 174 mg/dL; Hemoglobin A1c % 7.7 % (<6.0); Total Hemoglobin (HGBA1C) 3494.3453 umol/L
[2024-07-17 11:37] LABS: Alanine Aminotransferase 15 U/L (0-40); Alkaline Phosphatase 118 U/L (39-117); Anion Gap 13 (12-20); Aspartate Amino Transferase 18 U/L (5-37); Bilirubin Total 0.2 mg/dL (0.0-1.0); Blood Urea Nitrogen 17 mg/dL (9-16); Calcium 8.8 mg/dL (8.4-10.2); Carbon Dioxide 25 mmol/L (22-29); Chloride 103 mmol/L (96-108); Estimated Glomerular Filt Rate > 60; Glucose Random 248 mg/dL (60-115); Potassium 3.9 mmol/L (3.3-5.1); Sodium 137 mmol/L (135-145)
== END 2024-07-17 08:49 | disposition home or self-care (01) ==
LOC: HO.HHCL 08:48
PROVIDERS: Visit Provider Nurse Practitioner Family
DX: E11.3291 Type 2 diabetes mellitus with mild nonproliferative diabetic retinopathy without macular edema, right eye (principal)
CPT/HCPCS: 36415; 80053; 83036; 84443; 85025

== ENCOUNTER 2024-09-22 08:02 | Outpatient (REF) | payer MEDICAID, SELFPAY ==
--- NOTE | ~2024-09-22 | XR_ITS ---
EXAMINATION: XR HAND, LEFT CLINICAL INFORMATION: M79.642 - Pain in left hand COMPARISON: None available. TECHNIQUE: PA, lateral, and oblique views of the left hand. FINDINGS: The bones and soft tissues are normal. No fracture. Alignment is anatomic. Joint spaces are maintained. Negative ulnar variance. No erosions or soft tissue calcifications. XR/XR hand LT min 3V IMPRESSION: No acute bony abnormalities of the left hand. Electronically signed by: Owen De Leon MD 09/22/2024 11:08 AM EDT
--- OUTSIDE RECORDS SUMMARY | 2024-09-22 08:05 | XMS_ITS | Encounter Summary ---
Author Organization [employer] Address [address] [place] [address] Care Team Providers Care Field Observer Name Role Phone Kristi BaeP Primary Care Provider [phone] Lois Gaming NP Primary Care Provider [phone] Reason for Visit * Reason Onset Date Comments Medication Question 02/21/2023 Encounter Details Date Type Department Care Team ([facility] st Contact Info) Description 02/21/2023 Telephone [facility] [address] [place], [place] [phone] Kristi Bae FNP [address] [place], [place] [phone] Medication Question Social History Tobacco Use Types [...] Miscellaneous Notes * Telephone Encounter - Gabi Loja - 02/21/2023 3:49 PM EST Tc from pt states he is due for Trulicity 4.5 MG/0.5ML solution pen-injector tomorrow (02/22) and states all pharmacies he contacted are on back order. Would like to know if PCP would like to send an alternative until pharmacies have Trulicity. Please contact pt at [phone] documented in this encounter Plan of Treatment Upcoming Encounters Date Type Department Care Team (Late st Contact Info) Description 09/26/2024 2:30 PM EDT Office Visit [facility] [address] [place] [phone] Lois Gaming NP [address] [place] [address] 10/15/2024 9:00 AM EDT Clinical Support [facility] [address] [place] [phone] Deborah Logan, BAM documented as of this encounter Visit Diagnoses Not on filedocumented in this encounter Additional Health Concerns Assessment Noted Time PHQ-9 Depression Total Score: 17 023 9:10 AM EST documented as of this encounter Care Teams Field Observer Relationship Specialty Start Date End Date Kristi Bae FNP [address] [place] [phone] PCP - General Family Medicine 10/16/22 10/04/23 Lois Gaming NP [address] [place] [id number] PCP - General Family Medicine 10/05/23 [facility] 11/11/23 documented as of this encounter
--- OUTSIDE RECORDS SUMMARY | 2024-09-22 08:06 | XMS_ITS | Patient Health Record ---
Author Organization [facility] Address [address] [place] [phone] Care Team Providers Care Imaging Nurse Name Role Phone Shannen Jefferson Primary Care Provider Unavaila Grady Perea Jr Unavailable Reason For Referral No Information Medications Medication SIG (Take, Route, Frequency, Duration) Notes Start Date End Date Status clonazePAM 1 MG TAKE 1 TABLET BY JORDON TH TWICE DAILY Oral for 30 Active Mirtazapine 45 MG TAKE 1 TABLET BY OJRDON TH AT BEDTIME Oral for 30 Active MiraLax (colon prep) 17 GM/SCOOP mixed with Gatorade or Crystal Light Orally begin at 5:00 p.m. the day before the procedure for 1 day 02/01/2022 Active Vitamin D3 50 MCG (2000 UT) TAKE 1 CAPSULE BY MOUTH EVERY DAY Oral for 30 Active Perphenazine 4 MG 1 tablet Orally Twic e a day for 30 day(s) Active Gabapentin 300 MG TAKE 1 CAPSULE BY MO UTH TWICE DAILY Oral for 30 Active traMADol HCl 50 MG TAKE 1 TO 2 TABLETS BY MOUTH EVERY 8 HOURS NEEDED Diagnosis Unavailable Oral for 28 Active rOPINIRole HCl 1 MG TAKE 1 TABLET BY JORDON TH AT BEDTIME Oral for 30 Active Vitamin B-12 1000 MCG TAKE 1 TABLET BY M OUTH EVERY DAY Oral for 90 Active Narcan 4 MG/0.1ML as directed Nasally as directed Active Trulicity 3 MG/0.5ML INJECT ONE PEN (= 3 MG) SUBCUTANEOUSLY ONCE A WEEK DIRECTED Diagnosis Unavailable Subcutaneous for 28 Active Simethicone 180 MG 1 capsule after meal s and at bedtime as needed Orally Twice a day Active Lisinopril 20 MG TAKE 1 TABLET BY JORDON TH EVERY DAY Oral for 30 Active Albuterol Sulfate HFA 108 (90 Base) MCG/ACT 1 puff as needed Inhalation every 4 hrs Active Jardiance 25 MG TAKE 1 TABLET BY JORODN TH EVERY DAY IN THE MORNING Oral for 30 Active Colace 100 MG 1 capsule as needed Orally Once a day for 30 day(s) Active Zolpidem Tartrate 10 MG TAKE 1 TABLET BY MOUTH AT BEDTIME NEEDED Oral for 30 Active Immunizations Vaccine Route Administration Date Status Comme nts Influenza Unknown 01/05/2022 Administered Social History Tobacco Use: Social History Observation Description Date Details (start date - stop date) Current Smoker NA - NA Tobacco Use/Smoking Question Answer Notes Patient is a current smoker Alcohol Screen Question Answer Notes Did you have a drink containing alcohol in the p ast year? No Points 0 Interpretation Negative Problems Problem Type SNOMED Code ICD Code Onset Dates Problem Status W/U Status Risk Notes Problem 553587625 Colon cancer screening (Z12.11) Active confirmed Problem [id number] Left lower quadrant pain (R10.32) Active confirmed Plan Of Treatment Future Test Test Name Order Date COLONOSCOPY 02/01/2022 Insurance Providers Payer Name Payer Address Payer Phone Subscriber Number Group Number Insured Name Patient Relationship to Insured Coverage Start Date Coverage End Date MEDICAID OF [place] [address] [place] [phone] [id number] BRETT BENTLEY Self - patient is the insured Medical (General) History Medical History History ICD Code hypertension type 2 diabetes Elevated white blood cell count Anxiety/depression Obstructive sleep apnea, not on CPAP Back pain Surgical History Surgery Date(Month/Year) Hospitalization History Reason Date(Month/Year) UTI
== END 2024-09-22 08:03 | disposition home or self-care (01) ==
LOC: HO.HOSX 08:02
DX: M77.11 Lateral epicondylitis, right elbow (principal); M25.641 Stiffness of right hand, not elsewhere classified; M25.642 Stiffness of left hand, not elsewhere classified; R20.0 Anesthesia of skin; R20.2 Paresthesia of skin; M79.642 Pain in left hand
CPT/HCPCS: 73130; 99212

== ENCOUNTER 2024-09-22 10:34 | Outpatient (AMB) | payer MEDICAID, SELFPAY ==
--- NOTE | 2024-09-22 10:43 | MHC.OFFVIS ---
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 Per referring provider, patient has a history of arthritis in the hands. Patient states pain goes from the left middle finger up to his shoulder. Patient says he does not have enough strength compared to his right hand. Patient also complains of numbness an tingling all around the palm and finger tips. He is also experiencing left thumb and index finger locking and catching, mainly bothering him when doing dishes. Patient has tried Tramadol without relief, no hand braces, no injections, no occupational therapy. Denies surgeries or injuries to the hands. 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 Per referring provider, patient has a history of arthritis in the hands. Patient states pain goes from the left middle finger up to his shoulder. Patient says he does not have enough strength compared to his right hand. Patient also complains of numbness an tingling all around the palm and finger tips. He is also experiencing left thumb and index finger locking and catching, mainly bothering him when doing dishes. The patient reports that he was somewhat recently in a coma, and inquires of the symptoms could be a complication of this event. The patient also reports that he is experiencing significant pain in the right elbow and forearm, primarily on the lateral aspect when lifting things with this and. Patient has tried Tramadol without relief, no hand braces, no injections, no occupational therapy. Denies surgeries or injuries to the hands. History of Type 2 Diabetes Mellitus COUNTS INCLUDE [facility] BEDS AT [facility] Medical History (Updated 09/22/24 @ 11:07 by JARRETT Fraire) Morbid obesity with BMI of 50.0-59.9, adult Open wound Necrotizing soft tissue infection Soft tissue infection Morbid obesity Back pain KIM (obstructive sleep apnea) Anxiety and depression Elevated WBCs Type 2 diabetes mellitus HTN (hypertension) Surgical History Hx of surgical procedure (~09/17/23) Hx of oral surgery Social History Household Members: None Housing: Apartment Do you presently have visiting nurse or other home services: Yes (ELECT[employer]IC [employer]GAN [employer]SEM[employer] AND CHECKER 4 times a week) Alcohol intake: never Patient Tobacco Use Status: Current everyday Tobacco user Tobacco use type: Cigarette Cigarettes Per Day: 2 Years Smoked: 25 e-Cigarette/Vaping Use: Never Used Substance Use Type: Marijuana Advance Directives Date on File: 09/14/23 service: No Review of Systems Const All systems reviewed & are unremarkable except as noted in HPI and below Physical Exam Vital Signs: BMI result Body Mass Index 54.9 Extrem Other: Neuro: Normal sensation of the tips of all digits of bilateral hands in the office today No thenar or intrinsic wasting. Good APB muscle firing and good finger cross. Vascular: Capillary refill brisk. Pain: Significant tenderness to palpation noted of the lateral epicondyle of the right elbow Positive Cozen's test on the right Negative Cozen's test in the left ROM: Patient can make a fist and extend all their digits with encouragement, reports discomfort on the dorsal aspect of the digits of the left hand when doing so, particularly the middle finger No visible or palpable locking and catching of any of the digits of the bilateral hands in the office today Skin: No lacerations or abrasions noted. General: No ecchymosis. No erythema or evidence of infection. Assessment & Plan Assessment & Plan (1) Right lateral epicondylitis: Code(s): M77.11 - Lateral epicondylitis, right elbow Category: Medical (2) Numbness and tingling in both hands: Code(s): R20.0 - Anesthesia of skin; R20.2 - Paresthesia of skin Category: Medical (3) Stiffness of joints of both hands: Code(s): M25.641 - Stiffness of right hand, not elsewhere classified; M25.642 - Stiffness of left hand, not elsewhere classified Category: Medical Plan 1. Numbness and tingling of both hands Symptoms intermittent, almost daily, worse at night Patient is educated about this condition and some of the possible causes of the symptoms, including but not limited to carpal tunnel syndrome, cubital tunnel syndrome, and nerve impingement at the neck Patient is referred for EMG and nerve conduction study to assess the health of the nerves of bilateral upper extremities Patient will follow-up after EMG and nerve conduction study for results review and discussion of further treatment options if indicated Patient is amenable to this plan 2. Right lateral epicondylitis Patient is educated about this condition Patient is educated about the treatment options available, namely occupational therapy symptomatic management with conservative pain management measures Patient is also provided with a lateral epicondylitis brace to wear when his right elbow and forearm are particularly bothering him OT order placed at this time Patient is educated that if 6-8 weeks after beginning occupational therapy he is not noticing improvement in the symptoms of his right elbow, he should call our office for reassessment and discussion of further treatment options Patient understands this is amenable to this plan 3. Stiffness of bilateral hands Worse on the right OT order placed for range of motion, strengthening, proprioception of bilateral hands in the setting of significant stiffness Patient is educated that prior to beginning OT, he should still be working on range of motion exercises to improve his symptoms Patient is also educated conservative pain management measures, such as rest, ice, elevation, and Tylenol and ibuprofen needed Patient understands this and is amenable to this plan Orders: Orders NE nerve conduction velocity Today R20.0 - Anesthesia of skin, R20.2 - Paresthesia of skin OT Evaluation and Treatment Today M25.641 - Stiffness of right hand, not elsewhere classified, M25.642 - Stiffness of left hand, not elsewhere classified, M77.11 - Lateral epicondylitis, right elbow, R20.0 - Anesthesia of skin, R20.2 - Paresthesia of skin XR hand LT min 3V Today M79.642 - Pain in left hand NE electromyogram (EMG) Today R20.0 - Anesthesia of skin, R20.2 - Paresthesia of skin Coding Level of Care Code New Pt Level 4 (66315) Diagnoses Right lateral epicondylitis M77.11 Numbness and tingling in both hands R20.0; R20.2 Stiffness of joints of both hands M25.641; M25.642
[2024-09-22 10:44] VITALS: BMI 54.9
== END 2024-09-22 11:30 | disposition home or self-care (01) ==
LOC: HO.HOS 10:35
PROVIDERS: PCP Nurse Practitioner Family
DX: M77.11 Lateral epicondylitis, right elbow (principal); R20.0 Anesthesia of skin; R20.2 Paresthesia of skin; M25.641 Stiffness of right hand, not elsewhere classified; M25.642 Stiffness of left hand, not elsewhere classified
CPT/HCPCS: 99204

== ENCOUNTER → 2024-09-22 10:37 | Outpatient (BNV) | payer MEDICAID, SELFPAY | PROVIDERS: Visit Provider Radiology Diagnostic Radiology | DX: M79.642 Pain in left hand (principal) | CPT/HCPCS: 73130 ==

== ENCOUNTER 2024-10-09 09:16 | Outpatient (AMB) | payer MEDICAID, SELFPAY ==
[2024-10-09 09:36] VITALS: BP 136/88; PULSE 89; O2SAT 96; BMI 60.7
--- NOTE | 2024-10-09 09:36 | A.OFFVIS_ITS ---
Vital Signs 10/09/24 09:36 Height 5 ft 6 in Weight 376 lb 6 oz BMI 60.7 BP 136/88 Blood Pressure Location Lt brachial Position Sitting Pulse 89 Pulse Source Pulse Oximeter Pulse Oximetry (%) 96 Oxygen Delivery Method Room Air Intake Visit Reasons: ENP-KIM Intake Note: Patient presents [employer]PERVIS[employer] KIM. patient was on CPAP(lost machine) needs new one. Last sleep study was 2018([facility]). Goes to bed around 11pm wakes at 7am. Naps at time for about 1hr. Allergies No Known Allergies Allergy (Verified 10/09/24 09:40) HPI Comments Details: 49 year old male here for an evaluation of obstructive sleep apnea. PMH: Sep 2024 Septic shock in a coma for 2 weeks and 6month hospitilazation day, Shanika in [facility]. Oct 23 2024 he was transferred to [facility] for cyst on r. leg. and was on antibiotics. He has kim and was on cpap therapy and after covid he was never followed up by his sleep company. He goes to bed at 11pm and wakes up at 7am, takes a nap through the day. 3-4 waking up at night for the bathroom. He fell in the bathroom and broke is head and is edentulous. He has dentures. He is followed by pt/ot for arthritis. Mood is good and he takes clonazapem and sertraline and mirtazapine for anxiety and depression which helps with sleep at night. He has heat intolerance difficulty going up and down the stairs which causes coughing, sob, and congestion. BP is well managed. T2DM and is on 3 meds. He has numbness and tingling in hands bilaterally. He smokes MJ, and 8 cigarettes a day, denies alcohol. [facility] Medical History Morbid obesity with BMI of 50.0-59.9, adult Open wound Necrotizing soft tissue infection Soft tissue infection Morbid obesity Back pain KIM (obstructive sleep apnea) Anxiety and depression Elevated WBCs Type 2 diabetes mellitus HTN (hypertension) Surgical History Hx of surgical procedure (~09/17/23) Hx of oral surgery Social History Household Members: None Housing: Apartment Do you presently have visiting nurse or other home services: Yes ([employer] 4 times a week) Alcohol intake: never Patient Tobacco Use Status: Current everyday Tobacco user Tobacco use type: Cigarette Cigarettes Per Day: 2 Years Smoked: 25 e-Cigarette/Vaping Use: Never Used Substance Use Type: Marijuana Advance Directives Date on File: 09/14/23 service: No Physical Exam Vital Signs: Last Vital Signs Pulse 89 10/09/24 09:36 BP 136/88 10/09/24 09:36 Pulse Ox 96 10/09/24 09:36 Oxygen Delivery Method Room Air 10/09/24 09:36 BMI result Body Mass Index 60.7 Const General: cooperative, comfortable and no acute distress Nutritional Appearance: obese Orientation/consciousness: patient oriented x3 HEENT Face and sinus: Yes face symmetric Teeth and gingiva: other (mallampti score of 3) Neck Neck: Yes full ROM Resp Effort & Inspection: normal respiratory effort and able to speak in complete sentences Neuro General: patient oriented x3 and moves all extremities Cranial nerves: Yes Normal accommodation reflex present, Yes Normal facial strength present, Yes Midline tongue present, Yes Ability to bilaterally rotate head present and Yes Ability to bilaterally elevate shoulders present Cognition (Neuro): normal cognition Gait exam (Neuro): Normal gait present, Assistive device used and Other gait observations present Motor exam (neuro): 5/5 motor strength present throughout and Normal motor muscle tone present throughout Psych Appearance: grossly normal Speech and movement: Normal speech and movement present Attitude: cooperative Thought process: Normal thought process present Thought content: Normal thought content present Assessment & Plan Assessment & Plan (1) Excessive daytime sleepiness: Code(s): G47.19 - Other hypersomnia Category: Medical (2) Numbness and tingling in both hands: Code(s): R20.0 - Anesthesia of skin; R20.2 - Paresthesia of skin Category: Medical (3) RLS (restless legs syndrome): Code(s): G25.81 - Restless legs syndrome Category: Medical Plan HST to r/o kim Labs to r/o fatigue Anxiety and depression per psych continue Mirtazapine, Clonazepam and Ropinirole 2mg po at bedtime. RLS will monitor Orders: Orders RT home sleep study Today G47.19 - Other hypersomnia, M25.641 - Stiffness of right hand, not elsewhere classified, M25.642 - Stiffness of left hand, not elsewhere classified Methylmalonic Acid Today G47.19 - Other hypersomnia, G47.9 - Sleep disorder, unspecified, R53.83 - Other fatigue Homocysteine Today G47.19 - Other hypersomnia, G47.9 - Sleep disorder, unspecified, R53.83 - Other fatigue TSH reflex Free T4 Today G47.19 - Other hypersomnia, M25.641 - Stiffness of right hand, not elsewhere classified, M25.642 - Stiffness of left hand, not elsewhere classified Vitamin B1 Today G47.19 - Other hypersomnia, M25.641 - Stiffness of right hand, not elsewhere classified, M25.642 - Stiffness of left hand, not elsewhere classified Vitamin B6 Today G47.19 - Other hypersomnia, M25.641 - Stiffness of right hand, not elsewhere classified, M25.642 - Stiffness of left hand, not elsewhere classified Vitamin D 25-OH Total Today G47.19 - Other hypersomnia, M25.641 - Stiffness of right hand, not elsewhere classified, M25.642 - Stiffness of left hand, not elsewhere classified Ferritin Today G47.19 - Other hypersomnia Vitamin B12 and Folate Today G47.19 - Other hypersomnia, M25.641 - Stiffness of right hand, not elsewhere classified, M25.642 - Stiffness of left hand, not elsewhere classified Coding Level of Care Code New Pt Level 4 (00605) Diagnoses Excessive daytime sleepiness G47.19 Numbness and tingling in both hands R20.0; R20.2 RLS (restless legs syndrome) G25.81 Sleep Questionnaire Difficulty falling asleep: Yes Difficulty staying asleep?: Yes Number of arousals: 6-7 Snoring: Yes Witnessed apneas: Yes Gasping arousals: Yes Nocturia: Yes (3-4) GERD: Yes Vivid dreams: Yes Acting out dreams: No Abnormal behavior in sleep: Yes (talking in his sleep) Abnormal movements in sleep: Yes Morning headaches: No Excessive daytime sleepiness: Yes Daytime naps: Yes Restless legs: Yes Hallucinations: No Sleep paralysis: No Drop attacks: No Sleep Study: Yes CPAP: Yes
--- OUTSIDE RECORDS SUMMARY | 2024-10-09 09:52 | XMS_ITS | Encounter Summary ---
Author Organization [employer] Address [address] [facility] 7t [place] [address] Care Team Providers Care Colon And Rectal Surgeon Name Role Phone Kristi Bae Primary Care Provider [phone] Lois Gaming NP Primary Care Provider [phone] Reason for Visit * Reason Onset Date Comments Med Refill 01/22/2023 Encounter Details Date Type Department Care Team ([facility] st Contact Info) Description 01/22/2023 Telephone [facility] [address] [place], [place] [phone] Kristi Bae FNP [address] [place] [address] Med Refill Social History Tobacco Use Types Packs/Day Years Used Date Smoking Tobacco: Every Day Cigarettes Smokeless Tobacco: Never Alcohol Use Standard Drinks/Week Comments Never 0 (1 standard drink = 0.6 oz pur e alcohol) Depression Answer Date Recorded Patient Health Questionnaire-9 Score 17 02/15/2022 Housing Stability Answer Date Recorded What is your housing situation today? I have adams gutiérrez 11/22/[address] you li ve. Do you have problems with any of the following? None of the above 11/22/2022 Food Insecurity Answer Date Recorded Within the past 12 months, y ou worried that your food would run out before you got money to buy more: Never True 11/22/2022 Within the past 12 months,th e food you bought just didn't last and you didn't have enough money to get more: Never True Transportation Answer Date Recorded In the past 12 months, has l ack of transportation kept you from medical appts, meetings, work or from getting things needed for daily living? No 11/22/2022 Utilities Answer Date Recorded In the past 12 months, has t he electric, gas, oil or water company threatened to shut off services in your home? No 11/22/2022 Depression Answer Date Recorded Patient Health Questionnaire-2 Score 6 02/15/2022 Sex and Gender Information Value Date Recorded Sex Assigned at Male 12/05/2021 10:19 AM EDT Legal Sex Male 10:19 AM EDT Gender Identity Male 12/05/2021 10:19 AM EDT Sexual Orientation Choose not to disclose 2021 10:19 AM EDT documented as of this encounter Miscellaneous Notes * Telephone Encounter - Gabi Loja - 01/22/2023 2:25 PM EST Tc from pt requesting medication refill on Trulicity 4.5 MG/0.5ML solution pen- injector to be sent to [facility] - [place], [place] - [address] [place] [address] documented in this encounter Plan of Treatment Upcoming Encounters Date Type Department Care Team (Late st Contact Info) Description 10/15/2024 9:00 AM EDT Clinical Support [facility] [address] [place] [address] Deborah Logan, RN documented as of this encounter Visit Diagnoses Not on filedocumented in this encounter Additional Health Concerns Assessment Noted Time PHQ-9 Depression Total Score: 17 023 9:10 AM EST documented as of this encounter Care Teams Colon And Rectal Surgeon Relationship Specialty Start Date End Date Kristi Bae FNP [address] [place] [address] PCP - General Family Medicine 10/16/22 10/04/23 Lois Gaming NP [address] [place] [address] PCP - General Family Medicine 10/05/23 [facility] 11/11/23 documented as of this encounter
--- OUTSIDE RECORDS SUMMARY | 2024-10-09 09:52 | XMS_ITS | Encounter Summary ---
Author Organization [employer] Address [address] [facility] [address] [place] [address] Care Team Providers Care Strip Cleaner Name Role Phone Kristi BaeP Primary Care Provider [phone] Lois Gaming NP Primary Care Provider [phone] Reason for Visit * Reason Onset Date Comments PT1 12/18/2022 Encounter Details Date Type Department Care Team ([facility] st Contact Info) Description 12/18/2022 Telephone [facility] [address] [place], [place] [phone] Kristi Bae FNP [address] [place] [address] PT1 Social History Tobacco Use Types Packs/Day Years [...] encounter Miscellaneous Notes * Telephone Encounter - Janine Metcalf - 12/19/2022 10:12 AM EST PT-1 Request Number [id number] is Pending * Telephone Encounter - Batsheva Huffman - 12/18/2022 8:22 AM EST PT1 Name of facility: [facility] Specialty: Future Appt's Location: [address] [place] [id number] Date: N/a Time: n/a fax: [phone] wheelchair: No [employer]: No All future visits within the Clinic. Phone number and Address Verified. documented in this encounter Plan of Treatment Upcoming Encounters Date Type Department Care Team (Late st Contact Info) Description 10/15/2024 9:00 AM EDT Clinical Support [facility] [address] [place] [address] Deborah Logan RN documented as of this encounter Visit Diagnoses Not on filedocumented in this encounter Additional Health Concerns Assessment Noted Time PHQ-9 Depression Total Score: 17 023 9:10 AM EST documented as of this encounter Care Teams Strip Cleaner Relationship Specialty Start Date End Date Kristi Bae FNP [address] [place] [address] PCP - General Family Medicine 10/16/22 10/04/23 Lois Gaming NP [address] [place] [address] PCP - General Family Medicine 10/05/23 [facility] 11/11/23 documented as of this encounter
--- OUTSIDE RECORDS SUMMARY | 2024-10-09 09:52 | XMS_ITS | Encounter Summary ---
Author Organization [employer] Address [address] [facility] 7t [place] [address] Care Team Providers Care Park Landscape Architect Name Role Phone Lois Gaming NP Primary Care Provider [phone] Reason for Visit * Reason Onset Date Comments Call Back Request 07/30/2024 Encounter Details Date Type Department Care Team ([facility] Contact Info) Description 07/30/2024 Telephone [facility] [address] [place] [address] Lois Gaming NP [address] [place], [place] [phone] Call Back Request Social History Tobacco Use Types Packs/Day Years Used Date Smoking Tobacco: Every Day Cigarettes Passive Smoke Exposure: Current Smokeless Tobacco: Never Comments:Smoking since age [age] Alcohol Use Standard Drinks/Week Comments Never 0 (1 standard drink = 0.6 oz pur e alcohol) Depression Answer Date Recorded Patient Health Questionnaire-9 Score 24 04/11/2024 Patient Health Questionnaire-9 Score 24 04/11/2024 Last PHQ-9: Questionnaire Data Not on file 0 04/11/2024 Housing Stability Answer Date Recorded What is your housing situation today? I have adams gutiérrez 02/23/[address] you li ve. Do you have problems with any of the following? None of the above 02/23/2023 Food Insecurity Answer Date Recorded Within the past 12 months, y ou worried that your food would run out before you got money to buy more: Sometimes True 2023 Within the past 12 months,th e food you bought just didn't last and you didn't have enough money to get more: Sometimes True 03/02/2023 Transportation Answer Date Recorded In the past [...] Date Recorded Patient Health Questionnaire-2 Score 6 04/11/2024 Internet Access Answer Date Recorded Internet Access Q1 Yes 02/11/2024 Internet Access Q2 Not on file 02/11/2024 Sex and Gender Information Value Date Recorded Sex Assigned at Male 12/05/2021 10:19 AM EDT Legal Sex Male 10:19 AM EDT Gender Identity Male 12/05/2021 10:19 AM EDT Sexual Orientation Choose not to disclose 2021 10:19 AM EDT documented as of this encounter Miscellaneous Notes * Telephone Encounter - Aury Pillai RN - 07/30/2024 12:57 PM EDT Message below addressed by Lauren Russ. * Telephone Encounter - [place] Solorzano - 07/30/2024 12:35 PM EDT Tc from pt requesting a call back stating he received a text message informing that he is due for acancer screening and pt would like to clarify. Please contact pt at [phone]. documented in this encounter Plan of Treatment Upcoming Encounters Date Type Department Care Team (Late st Contact Info) Description 10/15/2024 9:00 AM EDT Clinical Support [facility] [address] [place] [address] Deborah Logan RN documented as of this encounter Visit Diagnoses Not on filedocumented in this encounter Additional Health Concerns Assessment Noted Time PHQ-9 Depression Total Score: 24 025 10:48 AM EST documented as of this encounter Care Teams Park Landscape Architect Relationship Specialty Start Date End Date Lois Gaming NP [address] [place] [address] PCP - General Family Medicine 10/05/23 [facility] 11/11/23 documented as of this encounter
--- OUTSIDE RECORDS SUMMARY | 2024-10-09 09:52 | XMS_ITS | Encounter Summary ---
Author Organization [employer] Address [address] [facility] 7t [place] [address] Care Team Providers Care Erecting Crane Operator Name Role Phone Lois Gaming NP Primary Care Provider [phone] Reason for Visit * Reason Onset Date Comments Nurse Triage 04/29/2024 Encounter Details Date Type Department Care Team ([facility] st Contact Info) Description 04/29/2024 Telephone [facility] [address] [place], [place] [phone] Lois Gaming NP [address] [place] [address] Nurse Triage Social History Tobacco Use Types Packs/Day Years [...] encounter Miscellaneous Notes * Telephone Encounter - Laura Carter RN - 04/29/2024 2:25 PM EDT Noted. Pt to follow up PRN. * Telephone Encounter - Radha Haider RN - 04/29/2024 11:09 AM EDT called pt to triage, spoke to pt. pt states his Get 3 sensor kept alarming during the night at 40's-60. pt finally got up during the night and took his glucose by finger stick and it was 105. pt reports now 135 and having no symptoms. pt is not sure why there would be a difference between his sensor and the finger stick numbers. advised there is a lag between the two by as much as about severalminutes. also advised that getting out of bed and moving around, his sugar will be higher anyway. pt's current blood sugar is good and having no blurred vision, hunger, shakes, chills, or other associated or severe symptoms. advised home care: take blood sugar readings before bed and have a reasonable snack if <90, do not ignore the alarms but check with the finger stick if reading low, pay attention to any actual symptoms, keep source of sugar such as candy at bedside to use as needed, monitor as needed, insulins as prescribed, and call back if persistent low numbers and call back if worsening or persistent lows. pt starts Zepbound this week and is cautioned to pay close attention to his numbers. pt has scheduled follow up appt for 05/23 and is advised to keep that appt or call sooner if needs. pt understands and agrees with plan. insurance verified. Will task to team nurses to follow up as needed. Protocol Used: Diabetes - Low Blood Sugar (Adult) Protocol-Based Disposition: Home Care Positive Triage Question: * Blood glucose 70 mg/dL (3.9 mmol/l) or below, OR symptomatic, AND cause known * All higher-acuity triage questions were negative Care Advice Discussed: * Reassurance and Education - Low Blood Sugar * Low Blood Sugar (Hypoglycemia) - Definition * Low Blood Sugar - Expected Course * Reasons To Call Back - Symptoms do not improve within 30 minutes - Sleepiness or confusion occur - You become worse * Telephone Encounter - Kylie Cano - 04/29/2024 10:10 AM EDT Symptoms: Low Blood Sugar - Caller Reports, Hand or Wrist Pain - Not From Injury Outcome: Schedule an urgent appointment (within 1 hour) or talk to a nurse or provider soon Reason: Can't use the hand normally The caller accepted this outcome. [phone] Pt states while sleeping the diabetes sensor beeped and indicated low sugar (48, 55 and 67) but when the pt took it reading was 100 and 105. Pt states sweated a lot during the night. documented in this encounter Plan of Treatment Upcoming Encounters Date Type Department Care Team (Late st Contact Info) Description 10/15/2024 9:00 AM EDT Clinical Support [facility] [address] [place] [phone] Deborah Logan, BAM documented as of this encounter Visit Diagnoses Not on filedocumented in this encounter Additional Health Concerns Assessment Noted Time PHQ-9 Depression Total Score: 24 04/11/ 025 10:48 AM EST documented as of this encounter Care Teams Erecting Crane Operator Relationship Specialty Start Date End Date Lois Gaming NP [address] [place] [address] PCP - General Family Medicine 10/05/23 [facility] 11/11/23 documented as of this encounter
--- OUTSIDE RECORDS SUMMARY | 2024-10-09 09:52 | XMS_ITS | Patient Health Record ---
Author Organization [facility] Address [address] [place] [address] Care Team Providers Care Derrick Boat Captain Name Role Phone Shannen Jefferson Primary Care Provider Unavaila Grady Perea Jr Unavailable Reason For Referral No Information Medications Medication SIG (Take, Route, Frequency, Duration) Notes Start Date End Date Status clonazePAM 1 MG TAKE 1 TABLET BY JORDON TH TWICE DAILY Oral for 30 Active Mirtazapine 45 MG TAKE 1 TABLET BY JORDON TH [...] Jardiance 25 MG TAKE 1 TABLET BY JORDON TH EVERY DAY IN THE MORNING Oral [...] Problem Status W/U Status Risk Notes Problem [id number] Colon cancer screening (Z12.11) Active confirmed Problem [id number] Left lower quadrant pain (R10.32) Active confirmed Plan Of Treatment Future Test Test Name Order Date COLONOSCOPY 02/01/2022 Insurance Providers Payer Name Payer Address Payer Phone Subscriber Number Group Number Insured Name Patient Relationship to Insured Coverage Start Date Coverage End Date MEDICAID OF [employer] [address] [place] [phone] [id number] BRETT BENTLEY Self - patient is the insured Medical (General) History Medical History History ICD Code hypertension type 2 diabetes Elevated white blood cell count Anxiety/depression Obstructive sleep apnea, not on CPAP Back pain Surgical History Surgery Date(Month/Year) Hospitalization History Reason Date(Month/Year) UTI
--- OUTSIDE RECORDS SUMMARY | 2024-10-09 09:52 | XMS_ITS | Encounter Summary ---
Author Organization [employer] Address [address] [facility] [address] 7t [place] [address] Care Team Providers Care Alley Worker Name Role Phone CarmellaKristi sahu SUPERVISOR DECORATING Primary Care Provider [phone] Lois Gaming NP Primary Care Provider [phone] Reason for Visit * Reason Comments Med Refill Encounter Details Date Type Department Care Team ([facility] st Contact Info) Description 01/22/2023 Refill [facility] [address] [place], [place] [phone] Dillon Alcantara AGNP Social History Tobacco Use Types Packs/Day Years Used Date Smoking Tobacco: Every Day Cigarettes Smokeless Tobacco: Never Alcohol Use Standard Drinks/Week Comments Never 0 (1 standard drink = 0.6 oz pur e alcohol) Depression Answer Date Recorded Patient Health Questionnaire-9 Score 17 02/15/2022 Housing Stability Answer Date Recorded What is your housing situation today? I have adamsanton gutiérrez 11/22/[address] you [...] AM EDT documented as of this encounter Plan of Treatment Upcoming Encounters Date Type Department Care Team (Late st Contact Info) Description 10/15/2024 9:00 AM EDT Clinical Support [facility] [address] [place] [address] Deborah Logan RN documented as of this encounter Visit Diagnoses Not on filedocumented in this encounter Additional Health Concerns Assessment Noted Time PHQ-9 Depression Total Score: 17 023 9:10 AM EST documented as of this encounter Care Teams Alley Worker Relationship Specialty Start Date End Date Kristi Bae FNP [address] [place] [address] PCP - General Family Medicine 10/16/22 10/04/23 Lois Gaming NP [address] [place] [address] PCP - General Family Medicine 10/05/23 [facility] 11/11/23 documented as of this encounter
--- OUTSIDE RECORDS SUMMARY | 2024-10-09 09:52 | XMS_ITS | Encounter Summary ---
Author Organization [employer] Address [address] [facility] 7t [place] [address] Care Team Providers Care Field Contact Person Name Role Phone Lois Gaming NP Primary Care Provider [phone] Reason for Visit * Reason Comments Care [facility]ination [facility] Encounter Details Date Type Department Care Team (Latest Contact Info) Description 10/08/2024 Patient Outreach [facility] [address] [place] [address] Lois Gaming NP [address] [place] [address] Care Coordination (C3 GAIL Dunne outreach pt 1) Social History Tobacco Use Types Packs/Day Years [...] AM EDT documented as of this encounter Progress Notes * Deepika Dunne - 10/08/2024 4:22 PM EDT CHW Deepika dunne submitted PT 1 to [facility] expires on 10/08/2025 documented in this encounter Plan of Treatment Upcoming Encounters Date Type Department Care Team (Late st Contact Info) Description 10/15/2024 9:00 AM EDT Clinical Support [facility] [address] [place] [address] Deobrah Logan RN documented as of this encounter Visit Diagnoses Not on filedocumented in this encounter Additional Health Concerns Assessment Noted Time PHQ-9 Depression Total Score: 24 025 10:48 AM EST documented as of this encounter Care Teams Field Contact Person Relationship Specialty Start Date End Date Lois Gaming NP [address] [place] [address] PCP - General Family Medicine 10/05/23 [facility] 11/11/23 documented as of this encounter
--- OUTSIDE RECORDS SUMMARY | 2024-10-09 09:52 | XMS_ITS | Encounter Summary ---
Author Organization [employer] Address 75 [facility] 7t [place] [address] Care Team Providers Care Information Clerk Automobile Club Name Role Phone Kristi BaeP Primary Care Provider [phone] Lois Gaming NP Primary Care Provider [phone] Reason for Visit * Reason Comments Med Refill Encounter Details Date Type Department Care Team ([facility] st Contact Info) Description 11/14/2022 Refill [facility] MED[facility]INE [address] [place], [place] [phone] Kristi aBe FNP [address] [place] [address] Chronic low back pain, unspecified back pain laterality, unspecified whether sciatica present Social History Tobacco Use Types Packs/Day Years Used Date Smoking Tobacco: Every Day Cigarettes Smokeless Tobacco: Never Alcohol Use Standard Drinks/Week Comments Never 0 (1 standard drink = 0.6 oz pur e alcohol) Depression Answer Date Recorded Patient Health Questionnaire-9 Score 17 02/15/2022 Housing Stability Answer Date Recorded What is your housing situation today? I have adams gutiérrez 11/12/[address] you li ve. Do you have problems with any of the following? None of the above 11/12/2022 Food Insecurity Answer Date Recorded Within the past 12 months, y ou worried that your food would run out before you got money to buy more: Never True 11/12/2022 Within the past 12 months,th e food you bought just didn't last and you didn't have enough money to get more: Never True 09/2022 Transportation Answer Date Recorded In the past 12 months, has l ack of transportation kept you from medical appts, meetings, work or from getting things needed for daily living? No 11/12/2022 Utilities Answer Date Recorded In the past 12 months, has t he electric, gas, oil or water company threatened to shut off services in your home? No 11/12/2022 Depression Answer Date Recorded Patient Health Questionnaire-2 [...] Description 10/15/2024 9:00 AM EDT Clinical Support [facility] [address] [place] [address] Deborah Logan RN documented as of this encounter Visit Diagnoses Diagnosis Chronic low back pain, unspecified back pain laterality, unspecified whether sciatica present documented in this encounter Additional Health Concerns Assessment Noted Time PHQ-9 Depression Total Score: 17 023 9:10 AM EST documented as of this encounter Care Teams Information Clerk Automobile Club Relationship Specialty Start Date End Date Kristi Bae FNP [address] [place] [address] PCP - General Family Medicine 10/16/22 10/04/23 Lois Gaming NP [address] [place] [address] PCP - General Family Medicine 10/05/23 [facility] 11/11/23 documented as of this encounter
--- OUTSIDE RECORDS SUMMARY | 2024-10-09 09:52 | XMS_ITS | Encounter Summary ---
Author Organization [employer] Address [address] [facility] 7t [place] [address] Care Team Providers Care Process Mechanic Name Role Phone Lois Gaming NP Primary Care Provider [phone] Reason for Visit * Reason Onset Date Comments PT1 08/14/2024 Encounter Details Date Type Department Care Team ([facility] st Contact Info) Description 08/14/2024 Telephone [facility] MEDICINE [address] [place], [place] [phone] Lois Gaming NP [address] [place] [address] PT1 Social History Tobacco Use Types Packs/Day [...] encounter Miscellaneous Notes * Telephone Encounter - Katherine Pelletier - 08/14/2024 12:12 PM EDT Patient calling requesting PT1 Home Address verified: Y/N: Yes Provider name or facility name: [facility] [address] [place] [address] Escort needed: Y/N: No Do you have a wheelchair: Y/N: No If yes- Manual or electric: n/a Visits: 4 x monthly Appt Day: 09/22/24 10:30am documented in this encounter Plan of Treatment Upcoming Encounters Date Type Department Care Team (Late st Contact Info) Description 10/15/2024 9:00 AM EDT Clinical Support [facility] MEDICINE [address] [place] [address] Deborah Logan RN documented as of this encounter Visit Diagnoses Not on filedocumented in this encounter Additional Health Concerns Assessment Noted Time PHQ-9 Depression Total Score: 24 025 10:48 AM EST documented as of this encounter Care Teams Process Mechanic Relationship Specialty Start Date End Date Lois Gaming NP [address] [place] [address] PCP - General Family Medicine 10/05/23 [facility] 11/11/23 documented as of this encounter
--- OUTSIDE RECORDS SUMMARY | 2024-10-09 09:52 | XMS_ITS | Encounter Summary ---
Author Organization [employer] Address 75 [facility] 7t [place] [address] Care Team Providers Care Parts Counter Representative Name Role Phone Lois Gaming NP Primary Care Provider [phone] Reason for Visit * Reason Onset Date Comments PT-1 10/08/2024 Encounter Details Date Type Department Care Team ([facility] st Contact Info) Description 10/08/[address] [facility] MEDICINE [address] [place] [address] Lois Gaming NP [address] [place], [place] [phone] PT-1 Social History Tobacco Use Types Packs/Day Years [...] encounter Miscellaneous Notes * Telephone Encounter - Washington Solorzano - 10/08/2024 4:01 PM EDT Patient calling requesting PT1 Home Address verified: Y/N: Yes Provider name or facility name: [facility] Facility Address: [address] [place] [address] Escort needed: Y/N: No Do you have a wheelchair: Y/N: No If yes- Manual or electric: N/A Visits: Twice a week documented in this encounter Plan of Treatment Upcoming Encounters Date Type Department Care Team (Late st Contact Info) Description 10/15/2024 9:00 AM EDT Clinical Support [facility] MEDICINE [address] [place] [address] Deborah Logan RN documented as of this encounter Visit Diagnoses Not on filedocumented in this encounter Additional Health Concerns Assessment Noted Time PHQ-9 Depression Total Score: 24 025 10:48 AM EST documented as of this encounter Care Teams Parts Counter Representative Relationship Specialty Start Date End Date Lois Gaming NP [address] [place] [address] PCP - General Family Medicine 10/05/23 [facility] 11/11/23 documented as of this encounter
--- OUTSIDE RECORDS SUMMARY | 2024-10-09 09:52 | XMS_ITS | Encounter Summary ---
Author Organization [employer] Address [address] [facility] [address] 7t [place] [address] Care Team Providers Care Mat Roller Name Role Phone Lois Gaming NP Primary Care Provider [phone] Reason for Visit * Reason Comments Med Refill Encounter Details Date Type Department Care Team ([facility] st Contact Info) Description 02/18/2024 Refill [facility] MED[facility]INE 230 [place], [place] [phone] Lois Gaming NP 230 [place], [place] [phone] Encounter for management of wound VAC Social History Tobacco Use Types Packs/Day Years Used Date Smoking Tobacco: Every Day Cigarettes Passive Smoke Exposure: Current Smokeless Tobacco: Never Comments:Smoking since age 2 0 Alcohol Use Standard Drinks/Week Comments Never 0 (1 standard drink = 0.6 oz pur e alcohol) Depression Answer Date Recorded Patient Health Questionnaire-9 Score 23 12/21/2023 Patient Health Questionnaire-9 Score 23 12/21/2023 Last PHQ-9: Questionnaire Data Not on file 1 02/19/2023 Housing Stability Answer Date Recorded What is [...] Date Recorded Patient Health Questionnaire-2 Score 6 12/21/2023 Internet Access Answer Date Recorded Internet Access [...] Description 10/15/2024 9:00 AM EDT Clinical Support [facility] [address] [place] [address] Deborah Logan RN documented as of this encounter Visit Diagnoses Diagnosis Encounter for management of wound VAC documented in this encounter Additional Health Concerns Assessment Noted Time PHQ-9 Depression Total Score: 23 024 3:28 PM EST documented as of this encounter Care Teams Mat Roller Relationship Specialty Start Date End Date Lois Gaming NP [address] [place] [address] PCP - General Family Medicine 10/05/23 [facility] 11/11/23 documented as of this encounter
--- OUTSIDE RECORDS SUMMARY | 2024-10-09 09:52 | XMS_ITS | Encounter Summary ---
Author Organization [employer] Address 75 [facility] 7t [place] [address] Care Team Providers Care Gas Tester Name Role Phone Kristi BaeP Primary Care Provider [phone] Lois Gaming NP Primary Care Provider [phone] Reason for Visit * Reason Comments Med Refill Encounter Details Date Type Department Care Team ([facility] st Contact Info) Description 11/14/2022 Refill [facility] MEDICINE [address] [place], [place] [phone] Kristi Bae FNP [address] [place] [address] Chronic low back pain, unspecified back pain [...] Description 10/15/2024 9:00 AM EDT Clinical Support [facility] [address] [place] [address] Deborah Logan RN documented as of this encounter Visit Diagnoses Diagnosis Chronic low back pain, unspecified back pain laterality, unspecified whether sciatica present documented in this encounter Additional Health Concerns Assessment Noted Time PHQ-9 Depression Total Score: 17 023 9:10 AM EST documented as of this encounter Care Teams Gas Tester Relationship Specialty Start Date End Date Kristi Bae FNP [address] [place] [address] PCP - General Family Medicine 10/16/22 10/04/23 Lois Gaming NP [address] [place] [address] PCP - General Family Medicine 10/05/23 [facility] 11/11/23 documented as of this encounter
--- OUTSIDE RECORDS SUMMARY | 2024-10-09 09:52 | XMS_ITS | Encounter Summary ---
Author Organization [employer] Address 75 [facility] 7t [place] [address] Care Team Providers Care Night Time Babysitter Name Role Phone Kristi BaeP Primary Care Provider [phone] Lois Gaming NP Primary Care Provider [phone] Reason for Visit * Reason Onset Date Comments Medication Question 02/21/2023 Encounter Details Date Type Department Care Team ([facility] st Contact Info) Description 02/21/2023 Telephone [facility] MEDICINE 230 [place], [place] [phone] Kristi Bae FNP 230 [place], [place] [phone] Medication Question Social History Tobacco Use Types [...] pharmacies have Trulicity. Please contact pt at [phone] documented in this encounter Plan of Treatment Upcoming Encounters Date Type Department Care Team (Late st Contact Info) Description 10/15/2024 9:00 AM EDT Clinical Support [facility] MEDICINE [address] [place] [address] Deborah Logan RN documented as of this encounter Visit Diagnoses Not on filedocumented in this encounter Additional Health Concerns Assessment Noted Time PHQ-9 Depression Total Score: 17 023 9:10 AM EST documented as of this encounter Care Teams Night Time Babysitter Relationship Specialty Start Date End Date Kristi Bae FNP 230 [place] [address] PCP - General Family Medicine 10/16/22 10/04/23 Lois Gaming NP [address] [place] [address] PCP - General Family Medicine 10/05/23 [facility] 11/11/23 documented as of this encounter
--- OUTSIDE RECORDS SUMMARY | 2024-10-09 09:52 | XMS_ITS | Encounter Summary ---
Author Organization [email or web address] Address [address] [facility] [address] 7t [place] [address] Care Team Providers Care Telephone Maintainer Name Role Phone CarmellaKristi sahu CLAIM AUDITOR Primary Care Provider [phone] Lois Gaming NP Primary Care Provider [phone] Reason for Visit * Reason Comments Med Refill Encounter Details Date Type Department Care Team ([facility] st Contact Info) Description 03/06/2023 Refill [facility] MEDICINE 230 [place], [place] [phone] Dillon Alcantara AGNP Social History Tobacco Use Types Packs/Day Years Used Date Smoking Tobacco: Every Day Cigarettes Smokeless Tobacco: Never Comments:Smoking since age 2 0 Alcohol Use Standard Drinks/Week Comments Never 0 (1 standard drink = 0.6 oz pur e alcohol) Depression Answer Date Recorded Patient Health Questionnaire-9 Score 22 03/02/2023 Patient Health Questionnaire-9 Score 22 03/02/2023 Last PHQ-9: Questionnaire Data Not on file 0 03/02/2023 Housing Stability Answer Date Recorded What is [...] Date Recorded Patient Health Questionnaire-2 Score 6 03/02/2023 Sex and Gender Information Value Date Recorded [...] Description 10/15/2024 9:00 AM EDT Clinical Support [facility]INE [address] [place] [address] Deborah Logan RN documented as of this encounter Visit Diagnoses Not on filedocumented in this encounter Additional Health Concerns Assessment Noted Time PHQ-9 Depression Total Score: 22 024 10:32 AM EST documented as of this encounter Care Teams Telephone Maintainer Relationship Specialty Start Date End Date Kristi Bae FNP [address] [place] [address] PCP - General Family Medicine 10/16/22 10/04/23 Lois Gaming NP 230 [place] [address] PCP - General Family Medicine 10/05/23 [facility] 11/11/23 documented as of this encounter
--- OUTSIDE RECORDS SUMMARY | 2024-10-09 09:52 | XMS_ITS | Encounter Summary ---
Author Organization [employer] Address 75 [facility] 7t [place] [address] Care Team Providers Care Boiler House Supervisor Name Role Phone Lois Gaming NP Primary Care Provider [phone] Reason for Visit * Reason Onset Date Comments Prior Authorization 02/15/2024 Encounter Details Date Type Department Care Team ([facility] st Contact Info) Description 02/15/2024 Telephone [facility] MEDICINE [address] [place], [place] [phone] Lois Gaming NP [address] [place], [place] [phone] Prior Authorization Social History Tobacco Use Types Packs/Day Years [...] encounter Miscellaneous Notes * Telephone Encounter - Lois Gaming NP - 02/22/2024 2:25 PM EST Signed thank you * Telephone Encounter - Reyna Mendoza - 02/22/2024 10:46 AM EST PA req form generated and sent to pcp for review and signature via [email or web address]. * Telephone Encounter - Mile Chairez - 02/18/2024 9:20 AM EST Tc from pt requesting a PA for medication (Tramadol) as he been calling since last week. * Telephone Encounter - Washington Solorzano - 02/15/2024 1:06 PM EST Tc from pt stating Tramadol needs a medication refill. Please contact pt at [phone]. (Indian Speaker) documented in this encounter Plan of Treatment Upcoming Encounters Date Type Department Care Team (Late st Contact Info) Description 10/15/2024 9:00 AM EDT Clinical Support [facility] MEDICINE [address] [place] [address] Deborah Logan, RN documented as of this encounter Visit Diagnoses Not on filedocumented in this encounter Additional Health Concerns Assessment Noted Time PHQ-9 Depression Total Score: 23 024 3:28 PM EST documented as of this encounter Care Teams Boiler House Supervisor Relationship Specialty Start Date End Date Lois Gaming NP [address] [place] [address] PCP - General Family Medicine 10/05/23 [facility] 11/11/23 documented as of this encounter
--- OUTSIDE RECORDS SUMMARY | 2024-10-09 09:52 | XMS_ITS | Encounter Summary ---
Author Organization [employer] Address [address] [facility] [address] 7t [place] [address] Care Team Providers Care Retail Sales Director Name Role Phone Lois Gaming SHANNA Primary Care Provider [phone] Encounter Details Date Type Department Care Team (Latest Contact Info) Description 10/08/2024 Travel Social History Tobacco Use Types Packs/Day Years [...] Description 10/15/2024 9:00 AM EDT Clinical Support [facility] MEDICINE [address] [place] [address] Deborah Logan RN documented as of this encounter Visit Diagnoses Not on filedocumented in this encounter Additional Health Concerns Assessment Noted Time PHQ-9 Depression Total Score: 24 025 10:48 AM EST documented as of this encounter Care Teams Retail Sales Director Relationship Specialty Start Date End Date Lois Gaming NP [address] [place] [address] PCP - General Family Medicine 10/05/23 [facility] [place] 11/11/23 documented as of this encounter
--- OUTSIDE RECORDS SUMMARY | 2024-10-09 09:53 | XMS_ITS | Encounter Summary ---
Author Organization [employer] Address 75 [facility] 7t [place] [address] Care Team Providers Care Inspector Printed Circuit Boards Name Role Phone Dillon Alcantara AGNMarlon Primary Care Provider Unavail Kristi PalomoP Primary Care Provider [phone] Lois Gaming NP Primary Care Provider [phone] Reason for Visit * Reason Comments Med Refill Encounter Details Date Type Department Care Team ([facility] Contact Info) Description 02/22/2022 Refill [facility] MEDICINE [address] [place] [address] Kaylynn Whiting MD [address] [place] [address] Chronic pain of both knees Social History Tobacco Use Types Packs/Day Years Used Date Smoking Tobacco: Every Day Cigarettes Smokeless Tobacco: Never Alcohol Use Standard Drinks/Week Comments Never 0 (1 standard drink = 0.6 oz pur e alcohol) Depression Answer Date Recorded Patient Health Questionnaire-9 Score 17 02/15/2022 Depression Answer Date Recorded Patient Health Questionnaire-2 Score 6 02/15/2022 Sex and Gender Information Value Date Recorded Sex Assigned at Male 12/05/2021 10:19 AM EDT Legal Sex Male 10:19 AM EDT Gender Identity Male 12/05/2021 10:19 AM EDT Sexual Orientation Choose not to disclose 2021 10:19 AM EDT COVID-19 Exposure Response Date Recorded In the last 10 days, have yo u been in contact with someone who was confirmed or suspected to have Coronavirus/COVID-19? No / Unsure 02/21/2022 8:36 AM EST documented as of this encounter Plan of Treatment Upcoming Encounters Date Type Department Care Team (Late st Contact Info) Description 10/15/2024 9:00 AM EDT Clinical Support [facility] MEDICINE [address] [place] [address] Deborah Logan RN documented as of this encounter Visit Diagnoses Diagnosis Chronic pain of both knees documented in this encounter Additional Health Concerns Assessment Noted Time PHQ-9 Depression Total Score: 17 023 9:10 AM EST documented as of this encounter Care Teams Inspector Printed Circuit Boards Relationship Specialty Start Date End Date Dillon Alcantara AGNP PCP - General Family Medicine 01/05/22 10/15/22 Kristi Bae FNP [address] [place] [address] PCP - General Family Medicine 10/16/22 10/04/23 Lois Gaming NP [address] [place] [address] PCP - General Family Medicine 10/05/23 [facility] 11/11/23 documented as of this encounter
--- OUTSIDE RECORDS SUMMARY | 2024-10-09 09:53 | XMS_ITS | Encounter Summary ---
Author Organization [employer] Address [address] [facility] 7t [place] [address] Care Team Providers Care Data Processing Specialist Name Role Phone Kristi BaeP Primary Care Provider [phone] Lois Gaming NP Primary Care Provider [phone] Reason for Visit * Reason Onset Date Comments New Med Request 09/12/2023 Encounter Details Date Type Department Care Team ([facility] st Contact Info) Description 09/12/2023 Telephone [facility] MEDICINE [address] [place], [place] [phone] Kristi Bae FNP [address] [place] [address] New Med Request Social History Tobacco Use Types Packs/Day [...] encounter Miscellaneous Notes * Telephone Encounter - Robinson Simpson - 09/12/2023 8:24 AM EDT Tc from patient calling to request a medication called Omeprazole for heart burn states was gettingthis medication a while ago however health science writer does not see on med list documented in this encounter Plan of Treatment Upcoming Encounters Date Type Department Care Team (Late st Contact Info) Description 10/15/2024 9:00 AM EDT Clinical Support [facility] MEDICINE [address] [place] [address] Deborah Logan RN documented as of this encounter Visit Diagnoses Not on filedocumented in this encounter Additional Health Concerns Assessment Noted Time PHQ-9 Depression Total Score: 22 024 10:32 AM EST documented as of this encounter Care Teams Data Processing Specialist Relationship Specialty Start Date End Date Kristi Bae FNP [address] [place] [address] PCP - General Family Medicine 10/16/22 10/04/23 Lois Gaming NP [address] [place] [address] PCP - General Family Medicine 10/05/23 [facility] 11/11/23 documented as of this encounter
--- OUTSIDE RECORDS SUMMARY | 2024-10-09 09:53 | XMS_ITS | Encounter Summary ---
Author Organization [employer] Address 75 [facility] 7t [place] [address] Care Team Providers Care Medical Equipment Technician Name Role Phone Dillon Alcantara AGNMarlon Primary Care Provider Unavail Kristi PalomoP Primary Care Provider [phone] Lois Gaming NP Primary Care Provider [phone] Reason for Visit * Reason Comments Med Refill Encounter Details Date Type Department Care Team ([facility] Contact Info) Description 02/22/2022 Refill [facility] MEDICINE 230 [place] [address] Kaylynn Whiting MD [address] [place] [address] Chronic pain of both knees Social History [...] Description 10/15/2024 9:00 AM EDT Clinical Support [facility] MEDICINE 230 [place] [address] Deborah Logan RN documented as of this encounter Visit Diagnoses Diagnosis Chronic pain of both knees documented in this encounter Additional Health Concerns Assessment Noted Time PHQ-9 Depression Total Score: 17 023 9:10 AM EST documented as of this encounter Care Teams Medical Equipment Technician Relationship Specialty Start Date End Date Dillon Alcantara AGNP PCP - General Family Medicine 01/05/22 10/15/22 Kristi Bae FNP [address] [place] [address] PCP - General Family Medicine 10/16/22 10/04/23 Lois Gaming NP [address] [place] [address] PCP - General Family Medicine 10/05/23 [facility] [place] 11/11/23 documented as of this encounter
--- OUTSIDE RECORDS SUMMARY | 2024-10-09 09:53 | XMS_ITS | Encounter Summary ---
Author Organization [employer] Address [address] [facility] 7t [place] [address] Care Team Providers Care Supervisor Finish End Name Role Phone Lois Gaming NP Primary Care Provider [phone] Reason for Visit * Reason Comments Med Refill Encounter Details Date Type Department Care Team ([facility] st Contact Info) Description 2024 Refill [facility] MEDICINE 230 [place], [place] [phone] Lois Gaming NP [address] [place], [place] [phone] Low vitamin D level Social History Tobacco Use Types Packs/Day Years [...] Description 10/15/2024 9:00 AM EDT Clinical Support [facility] MEDICINE [address] [place] [address] Deborah Logan RN documented as of this encounter Visit Diagnoses Diagnosis Low vitamin D level documented in this encounter Additional Health Concerns Assessment Noted Time PHQ-9 Depression Total Score: 24 025 10:48 AM EST documented as of this encounter Care Teams Supervisor Finish End Relationship Specialty Start Date End Date Lois Gaming NP [address] [place] [address] PCP - General Family Medicine 10/05/23 [facility] 11/11/23 documented as of this encounter
--- OUTSIDE RECORDS SUMMARY | 2024-10-09 09:53 | XMS_ITS | Encounter Summary ---
Author Organization [employer] Address [address] [facility] [address] [place] [address] Care Team Providers Care Political Worker Name Role Phone Kristi BaeP Primary Care Provider [phone] Lois Gaming NP Primary Care Provider [phone] Reason for Visit * Reason Comments Med Refill Encounter Details Date Type Department Care Team ([facility] st Contact Info) Description 09/12/2023 Refill [facility] MEDICINE [address] [place], [place] [phone] Kristi Bae FNP [address] [place] [address] Chronic low back pain, unspecified back pain [...] Description 10/15/2024 9:00 AM EDT Clinical Support [facility] MEDICINE [address] [place] [address] Deborah Logan RN documented as of this encounter Visit Diagnoses Diagnosis Chronic low back pain, unspecified back pain laterality, unspecified whether sciatica present documented in this encounter Additional Health Concerns Assessment Noted Time PHQ-9 Depression Total Score: 22 024 10:32 AM EST documented as of this encounter Care Teams Political Worker Relationship Specialty Start Date End Date Kristi Bae FNP [address] [place] [address] PCP - General Family Medicine 10/16/22 10/04/23 Lois Gaming NP [address] [place] [address] PCP - General Family Medicine 10/05/23 [facility] 11/11/23 documented as of this encounter
--- OUTSIDE RECORDS SUMMARY | 2024-10-09 09:53 | XMS_ITS | Encounter Summary ---
Author Organization [employer] Address [address] [facility] [address] [place] [address] Care Team Providers Care Patroller Name Role Phone Dillon Alcantara AGNMarlon Primary Care Provider Unavail able Kristi BaeP Primary Care Provider Lois Gaming NP Primary Care Provider [phone] Reason for Visit * Reason Onset Date Comments Appointment Request 02/02/2022 Encounter Details Date Type Department Care Team (Late Contact Info) Description 02/02/2022 Telephone [facility] MEDICINE [address] [place] [phone] Dillon Alcantara AGNP Appointment Request Social History Tobacco Use Types Packs/Day Years Used Date Smoking Tobacco: Never Assessed Sex and Gender Information Value Date Recorded Sex Assigned at Male 12/05/2021 10:19 AM EDT Legal Sex Male 10:19 AM EDT Gender Identity Male 12/05/2021 10:19 AM EDT Sexual Orientation Choose not to disclose 2021 10:19 AM EDT documented as of this encounter Miscellaneous Notes * Telephone Encounter - Charley Chang - 02/02/2022 8:34 AM EST Tc from Deepika from [facility] requesting a TP appt. documented in this encounter Plan of Treatment Upcoming Encounters Date Type Department Care Team (Late st Contact Info) Description 10/15/2024 9:00 AM EDT Clinical Support [address] [phone] Deborah Logan RN documented as of this encounter Visit Diagnoses Not on filedocumented in this encounter Care Teams Patroller Relationship Specialty Start Date End Date Dillon Alcantara AGNP PCP - General Family Medicine 01/05/22 10/15/22 Kristi Bae FNP [address] [place] [address] PCP - General Family Medicine 10/16/22 10/04/23 Lois Gaming NP [address] [place] [address] PCP - General Family Medicine 10/05/23 [facility] 11/11/23 documented as of this encounter
--- OUTSIDE RECORDS SUMMARY | 2024-10-09 09:53 | XMS_ITS | Encounter Summary ---
Author Organization [employer] Address [address] [facility] 7[address] [place] [address] Care Team Providers Care Websphere Consultant Name Role Phone Kristi BaeP Primary Care Provider [phone] Lois Gaming NP Primary Care Provider [phone] Reason for Visit * Reason Onset Date Comments Medication Question 03/09/2023 Encounter Details Date Type Department Care Team ([facility] st Contact Info) Description 03/09/2023 Telephone [facility] MEDICINE [address] [place], [place] [phone] Kristi Bae FNP [address] [place], [place] [phone] Medication Question Social History Tobacco Use Types [...] encounter Miscellaneous Notes * Telephone Encounter - Bobo Scott RN - 03/13/2023 9:48 AM EST T/C to [facility] pharmacy for below message for medication, pharmacy states medication will be ready with in couples hours. T/C to pt. For inform above message from pharmacy, pt. Verbally agreed and understood. * Telephone Encounter - Washington Solorzano - 03/12/2023 4:50 PM EST Tc from pt requesting status on medication empagliflozin (Jardiance) 25 MG. Please contact pt at [phone]. * Telephone Encounter - Gabi Loja - 03/09/2023 11:53 AM EST Tc from pt requesting for empagliflozin (Jardiance) 25 MG to be sent to [id number]- [place], [place] - [address] [facility] [address] [place]. Pt is out of medication. Pt states hecontact [facility] pharmacy and was advised it was transferred but pt called [facility] and was told they don't have a script. documented in this encounter Plan of Treatment Upcoming Encounters Date Type Department Care Team (Late st Contact Info) Description 10/15/2024 9:00 AM EDT Clinical Support [facility] MEDICINE [address] [place] [address] Deborah Logan, RN documented as of this encounter Visit Diagnoses Not on filedocumented in this encounter Additional Health Concerns Assessment Noted Time PHQ-9 Depression Total Score: 22 024 10:32 AM EST documented as of this encounter Care Teams Websphere Consultant Relationship Specialty Start Date End Date Kristi Bae FNP [address] [place] [address] PCP - General Family Medicine 10/16/22 10/04/23 Lois Gaming NP [address] [place] [address] PCP - General Family Medicine 10/05/23 [facility] 11/11/23 documented as of this encounter
--- OUTSIDE RECORDS SUMMARY | 2024-10-09 09:53 | XMS_ITS | Encounter Summary ---
Author Organization [employer] Address [address] [facility] [address] [place] [address] Care Team Providers Care Bindery Assistant Name Role Phone Kristi BaeP Primary Care Provider [phone] Lois Gaming NP Primary Care Provider [phone] Reason for Visit * Reason Comments Med Refill Encounter Details Date Type Department Care Team ([facility] st Contact Info) Description 03/12/2023 Refill [facility] MEDICINE [address] [place], [place] [phone] Kristi Bae FNP [address] [place] [address] Social History Tobacco Use Types Packs/Day Years [...] Description 10/15/2024 9:00 AM EDT Clinical Support [facility] MEDICINE [address] [place] [address] Deborah Logan, RN documented as of this encounter Visit Diagnoses Not on filedocumented in this encounter Additional Health Concerns Assessment Noted Time PHQ-9 Depression Total Score: 22 024 10:32 AM EST documented as of this encounter Care Teams Bindery Assistant Relationship Specialty Start Date End Date Kristi Bae FNP [address] [place] [address] PCP - General Family Medicine 10/16/22 10/04/23 Lois Gaming NP [address] [place] [address] PCP - General Family Medicine 10/05/23 [facility] 11/11/23 documented as of this encounter
--- OUTSIDE RECORDS SUMMARY | 2024-10-09 09:53 | XMS_ITS | Encounter Summary ---
Author Organization [employer] Address [address] [facility] [address] [place] [address] Care Team Providers Care Manufacturing Engineer Paint Name Role Phone Dillon Alcantara AGNMarlon Primary Care Provider Unavail Kristi PalomoP Primary Care Provider [phone] Lois Gaming NP Primary Care Provider [phone] Reason for Visit * Reason Comments Med Refill Encounter Details Date Type Department Care Team ([facility] Contact Info) Description 02/22/[address] [facility] MEDICINE [address] [place] [address] Kaylynn Whiting MD [address] [place] [address] Chronic pain of both knees Social History [...] Description 10/15/2024 9:00 AM EDT Clinical Support [facility] MEDICINE [address] [place] [address] Deborah Logan RN documented as of this encounter Visit Diagnoses Diagnosis Chronic pain of both knees documented in this encounter Additional Health Concerns Assessment Noted Time PHQ-9 Depression Total Score: 17 023 9:10 AM EST documented as of this encounter Care Teams Manufacturing Engineer Paint Relationship Specialty Start Date End Date Dillon Alcantara AGNP PCP - General Family Medicine 01/05/22 10/15/22 Kristi Bae FNP [address] [place] [address] PCP - General Family Medicine 10/16/22 10/04/23 Lois Gaming NP [address] [place] [address] PCP - General Family Medicine 10/05/23 [facility] 11/11/23 documented as of this encounter
--- OUTSIDE RECORDS SUMMARY | 2024-10-09 09:53 | XMS_ITS | Clinical Summary ---
Author Organization [employer] Address [address] [facility] [address] [place] [address] Care Team Providers Care Emergency Response Technician Name Role Phone Lois Gaming SHANNA Primary Care Provider [phone] Allergies No known active allergies Medications mirtazapine (Remeron) 45 MG tablet Take 45 mg by mouth at bedtime. 022 Active rOPINIRole (Requip) 1 MG tablet Take 1 mg by mouth at bedtime. 022 Active sertraline (Zoloft) 100 MG tablet TAKE 2 TABLETS BY MOUTH EVERY DAY DIRECTED 022 Active albuterol 108 (90 Base) MCG/ACT inhaler 1 puff as needed 18 g 11 023 Active naloxone (Narcan) 4 mg/0.1 mL nasal spray as directed 2 each 2 023 Active ziprasidone (Geodon) 40 MG capsule TAKE 1 CAPSULE BY MOUTH EVERY EVENING WITH MEALS 024 Active omeprazole (PriLOSEC) [address] capsule Take 20 mg by mouth Once per day. 024 Active Blood Glucose Monitoring Suppl (FreeStyle Lite) deviceIndications: Type 2 diabetes 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, without long-term current use of insulin ([facility]) Inject 1 each under the skin 2 times daily. 1 each 024 Active insulin lispro (HumaLOG Rhys KwikPen) 100 UNIT/ML pen Inject 6 Units under the skin with breakfast, with lunch, and with evening meal. Per sliding scale BG <111 0 units, 111-150 - 0 units, 151-200 2 units, 201-250 4 units, 251-300 6 units, 301-350 8 units, >350 10 units 6 mL 12 024 11/08 Active glucose blood (FREESTYLE LITE) test stripIndications:T ype 2 diabetes mellitus without complication, unspecified whether jail insulin use ([facility]) USE TO TEST TWICE DAILY 100 each 5 024 Active FreeStyle lancetsIndications :Type 2 diabetes mellitus without complication, unspecified whether keno terminal operator insulin use ([facility]) 1 each by Other route 2 times daily. 100 each 11 024 Active cholecalciferol VITAMIN D (Vitamin D-3) 50 MCG (1999) capsuleIndications :Low vitamin D level TAKE 1 CAPSULE BY MOUTH EVERY DAY 90 capsule 1 Active Continuous Glucose Spinner Iron (FreeStyle Get 3 [place]) deviceIndications: Type 2 diabetes mellitus treated with insulin ([facility]) 1 each Once per day. Use as directed for CGM 1 each Active Continuous Glucose Sensor (FreeStyle Get 3 Plus Sensor) miscIndications:Ty pe 2 diabetes mellitus treated with insulin ([facility]) 1 each every 15 days. Apply 1 every 15 days as directed for CGM 2 each Active glucose blood (FreeStyle Precision Neal Test) test stripIndications:T ype 2 diabetes mellitus treated with insulin ([facility]) Use to test blood sugar 4 times daily in case of CGM failure or extremes of BG 100 each 11 025 04/11 Active senna-docusate sodium (Senokot-S) 8.6-50 MG tabletIndications: Drug-induced constipation Take 2 tablets by mouth 2 (two) times a week. Take 2 tablets by mouth daily as needed for consipation, do not exceed 4 tablets per week 9 tablet 025 04/14 Active Alcohol Swabs (Alcohol Prep) padsIndications:Ty pe 2 diabetes 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, without long-term current use of insulin ([facility]),Type 2 diabetes mellitus treated with insulin ([facility]) 1 Pad 6 (six) times a day. 300 each 1 025 Active lisinopril 20 MG tabletIndications: Essential hypertension TAKE 1 TABLET(20 MG) BY MOUTH IN THE MORNING 90 tablet 1 Active cyanocobalamin (Vitamin B-12) 1000 MCG tablet TAKE 1 TABLET BY MOUTH EVERY MORNING 90 tablet 1 Active docusate sodium (Colace) 100 MG capsule TAKE 1 CAPSULE BY MOUTH TWICE DAILY 180 capsule Active Asmanex HFA 200 MCG/ACT aerosolIndications :Mild persistent asthma without complication INHALE 1 PUFF BY MOUTH TWICE DAILY 13 g 3 Active insulin glargine (Lantus) 100 UNIT/ML injection Inject 20 Units under the skin 2 times daily. 10 mL 12 025 08/22 Active Alcohol Swabs (Alcohol Prep) 70 % padsIndications:Ty pe 2 diabetes mellitus without complication, unspecified whether jail insulin use (CMS/HCC) USE 1 SWAB BY TOPICAL ROUTE TWICE DAILY 100 each 5 Active ketoconazole (NIZOral) 2 % creamIndications:I ntertrigo APPLY TOPICALLY TO THE AFFECTED AREA(S) EVERY DAY 30 g Active pen needle 31G x 6 mm misc Use as instructed 100 each 12 025 09/08 Active clonazePAM (KlonoPIN) 0.5 MG tablet Take 1 tablet by mouth every 6 (six) hours during the day. Active acetaminophen (Tylenol 8 Hour) 650 MG ER tablet TAKE 1 TABLET BY MOUTH EVERY 8 HOURS NEEDED FOR MILD PAIN FOR UP TO 10 DAYS NEEDED. DO NOT BREAK, CRUSH, DISSOLVE OR CHEW. 90 tablet 2 Active gabapentin (Neurontin) 300 MG capsuleIndications :Numbness of upper extremity Take 1 capsule (300 mg) by mouth 2 times daily. 56 capsule 2 Active ferrous gluconate (Fergon) 324 (38 Fe) MG tabletIndications: Other iron deficiency anemia Take 1 pill every Sunday, Sunday, and Sunday. Take with a full glass of water 46 tablet 2 Active traMADol (Ultram) 50 MG tabletIndications: Chronic low back pain, unspecified back pain laterality, unspecified whether sciatica present Take 1 tablet (50 mg) by mouth See administration instructions for 28 days. May take 1-2 tablets by mouth every 6 hours as needed for severe pain. Do not start before September 30, 2024. 224 tablet 025 10/28 Active Tirzepatide-Weight Management (Zepbound) 7.5 MG/0.5ML solution auto-injectorIndic ations:Type 2 diabetes 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, without long-term current use of insulin ([facility]) Inject 0.5 mL (7.5 mg) under the skin 1 (one) time per week for 28 days. INJECT ONE PEN (=7.5MG) SUBCUTANEOUSLY ONCE A WEEK DIRECTED 2 mL 025 11/04 Active clonazePAM (KlonoPIN) 1 MG tablet Take 1 mg by mouth 2 times daily. 022 09/11 Discontinued( Therapy completed) ferrous gluconate (Fergon) 324 (38 Fe) MG tablet Take 1 pill every Sunday, Sunday, and Sunday. Take with a full glass of water 46 tablet 2 024 09/26 Discontinued( Reorder (will not trigger notification to Pharmacy)) gabapentin (Neurontin) 300 MG capsuleIndications :Numbness of upper extremity TAKE 1 CAPSULE BY MOUTH TWICE DAILY 56 capsule 2 025 09/23 Discontinued acetaminophen (Tylenol 8 Hour) 650 MG ER tablet TAKE 1 TABLET BY MOUTH EVERY 8 HOURS NEEDED FOR MILD PAIN FOR UP TO 10 DAYS NEEDED. DO NOT BREAK, CRUSH, DISSOLVE OR CHEW. 30 tablet 025 09/26 Discontinued( Reorder (will not trigger notification to Pharmacy)) traMADol (Ultram) 50 MG tabletIndications: Chronic low back pain, unspecified back pain laterality, unspecified whether sciatica present Take 1 tablet (50 mg) by mouth See administration instructions for 28 days. May take 1-2 tablets by mouth every 6 hours as needed for severe pain. Do not start before September 02, 2024. 224 tablet 025 09/26 Discontinued( Reorder (will not trigger notification to Pharmacy)) Zepbound 7.5 MG/0.5ML solution auto-injectorIndic ations:Type 2 diabetes 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, without long-term current use of insulin ([facility]) INJECT ONE PEN (=7.5MG) SUBCUTANEOUSLY ONCE A WEEK DIRECTED 2 mL 025 10/07 Discontinued( Reorder (will not trigger notification to Pharmacy)) gabapentin (Neurontin) 300 MG capsuleIndications :Numbness of upper extremity TAKE 1 CAPSULE BY MOUTH TWICE DAILY 56 capsule 2 025 09/26 Discontinued( Reorder (will not trigger notification to Pharmacy)) Active Problems Problem Noted Date Diagnosed Date Morbid obesity 09/26/2024 Iron deficiency anemia 09/26/2024 Type 2 diabetes mellitus wit h hyperglycemia, with long-term current use of insulin 08/22/2024 Left hand pain 07/25/2024 Assessment & Plan (08/11/2024 11:18 AM EDT): Referral to ortho Sleep apnea 07/25/2024 Assessment & Plan (08/11/2024 11:18 AM EDT): Referral to sleep medicine Intertrigo 07/25/2024 Assessment & Plan (08/11/2024 11:17 AM EDT): In groin, prn topical therapies as rx'd below [facility] (current) use of opiate analgesic 04/05 Exercise counseling 02/11/2024 Assessment & Plan (02/11/2024 5:31 PM EST): Pt will ambulate daily Dietary counseling 02/11/2024 Assessment & Plan (02/11/2024 5:31 PM EST): Encouraged healthy nutrition as it aides in healing RLS (restless legs syndrome) 01/11/2024 Assessment & Plan (04/11/2024 12:10 PM EST): Increase gabapentin 300 mg bid , pt notes benefit Assessment & Plan (01/12/2024 1:39 PM EST): Pt endorses worsening rls symptoms, labs pending Will restart gabapentin 300 mg at at bedtime Other chronic pain 11/28/2023 Assessment & Plan (04/11/2024 12:14 PM EST): Stable in tramadol Insightful regarding relationship with oxycodone Assessment & Plan (02/11/2024 5:31 PM EST): discontinue oxycodone Continue tramadol Assessment & Plan (01/12/2024 1:41 PM EST): Will add prn oxycodone for bedtime when pain flares. Outreach Sunday from blue team or crs regarding pain, pt is due for tramadol refill, has enough for weekend will check in regarding pain with addition of prn night time dose before rx Assessment & Plan (12/25/2023 11:04 PM EST): Pain management medication was recently switched to tramadol 50 - 100 mg to wean off from Oxycodone 10 mg 12/18/2023. Reports that his pain is not well managed on tramadol. Discussed with patient he recently transitioned to Tramadol and to give it time. Plan Continue to use tramadol and use 5-10 mg oxycodone for break through pain . If pain not well managed return unused tramadol to pharmacy and will prescribe oxycodone Assessment & Plan (12/23/2023 11:09 AM EST): Pt is tapering oxycodone and interested in transitioning back to tramadol Has discontinued neruontin without increased pain Type 2 diabetes mellitus without complication Assessment & Plan (12/01/2023 12:01 PM EDT): Stable on current regimen Drug-induced constipation 11/13/2023 Assessment & Plan (04/11/2024 12:10 PM EST): Resume colace daily, prn senna Assessment & Plan (12/01/2023 12:00 PM EDT): Colace rx sent Edema due to malnutrition 11/13/2023 Assessment & Plan (12/01/2023 12:00 PM EDT): Will discontinue neurontin, encouraged elevation Monitor for increased pain Colon cancer screening 11/07/2023 Necrotizing fasciitis 11/03/2023 Assessment & Plan (12/25/2023 11:08 PM EST): Right gluteal cleft wound dressed and attached to wound vacuum. Plan Follow instructions as per wound nurse and surgeon Keep all appointments Increase protein intake to assist wound healing Smoking cessation to assist wound healing Assessment & Plan (12/23/2023 11:09 AM EST): In care with wound clinic, continue wound vac Assessment & Plan (12/01/2023 12:01 PM EDT): Stable, healing s/p skin graft, home care established as well as wound care Sepsis 09/14/2023 Assessment & Plan (09/14/2023 9:51 AM EDT): I presented case to [place] emergency room Im sending patient via ambulance JENIFER Arthritis of both knees 05/11/2022 Low vitamin D level 05/11/2022 Assessment & Plan (05/11/2022 3:21 PM EDT): Ask patient about current prescription, is he taking this? Low HDL (under 40) 05/11/2022 Assessment & Plan (05/12/2022 12:47 PM EDT): Patient has a history of low HDL, we will try some omega fatty acids and check his lipids at his DM2 f/up in 3 months. Component Ref Range & Units 1 mo ago (03/20/22) 1 yr ago (01/26/21) 2 yr ago (01/19/20) 2 yr ago (10/28/19) Cholesterol, Total <200 mg/dL 141 121 111 121 HDL Cholesterol > OR = 40 mg/dL 42 37 Low 37 Low 38 Low Triglycerides <150 mg/dL 248 High 165 High 135 189 High Comment: If a non-fasting specimen was collected, consider repeat triglyceride testing on a fasting specimen if clinically indicated. Kecia et al. J. of Clin. Lipidol. 2015;9:129-169. LDL Cholesterol mg/dL (calc) 70 60 CM 52 CM 57 CM Comment: Reference range: <100 Desirable range <100 mg/dL for primary prevention; <70 mg/dL for patients with CHD or diabetic patients with > or = 2 CHD risk factors. LDL-C is now calculated using the Tonny calculation, which is a validated novel method providing better accuracy than the Friedewald equation in the estimation of LDL-C. Christiano SS et al. ABBY. 2013;310(35): 7915-5762 (http://education.Sellaround/faq/DIS124) Chol/HDLC Ratio <5.0 (calc) 3.4 3.3 3.0 3.2 Non-HDL Cholesterol <130 mg/dL (calc) 99 84 CM 74 CM 83 CM Routine adult health maintenance 05/11/2022 Assessment & Plan (12/25/2023 11:14 PM EST): No labs available for review at this time. Patient to complete blood work Class 3 severe obesity due t o excess calories with body mass index (BMI) of 50.0 to 59.9 in adult 02/15/2022 Assessment & Plan (08/11/2024 11:16 AM EDT): Increase zepbound to 7.5, hold on insulin adjustments (consider increasing latus from 15 bid to 20 bid) until 2 doses of higher zepbound have been administered Assessment & Plan (04/11/2024 12:14 PM EST): Wt gain of 30 lbs which pt attributes to stopping glp-1 Will resume Assessment & Plan (12/25/2023 11:09 PM EST): Eat 3 meals a day, especially breakfast Eat healthy and focus on healthyfood choices daily fruits, vegetables, grains, low fat milk, low carbohydrate and fat Maintain healthy weight. Be physically active at least 45 minutes a day Left lower quadrant pain 02/13/2022 Chronic neutrophilia 01/21/2020 Type 2 diabetes mellitus wit h right eye affected by mild nonproliferative retinopathy without macular edema, without long-term current use of insulin 12/10/2019 Assessment & Plan (09/26/2024 6:08 PM EDT): Pt continuing on mounjaro, improved glucose control Referral to linen aide Follow up in 3 months sooner prn Assessment & Plan (08/11/2024 11:17 AM EDT): Increase zepbound 7.5 mg If fasting sugars remain elevated after two weeks of dose increase, consider increasing lantus from 15 units to 20 units Assessment & Plan (04/11/2024 12:12 PM EST): Resume glp-1, reduce lantus by 10 units daily (5units per dose) pt reports hx tolerating and sig reduction in appetite, Cgm ordered If hyperglycemic after two doses of glp-1 will increases lantus Assessment & Plan (02/11/2024 5:30 PM EST): Continue current regimen, pt motivated to exercise despite pain Assessment & Plan (12/23/2023 11:07 AM EST): Pt sugars are at goal, continue current regimen Assessment & Plan (08/14/2022 9:45 AM EDT): A1C = 6.6 Glu = 101 DM2 well managed, no changes to medication regimen made today. Will follow up in 3 months for DM2 Counseled weight loss, dietary changes including watching carbs, exercise 30 min/ day, most days. ED precautions discussed. Assessment & Plan (05/12/2022 12:51 PM EDT): Glucose 174 A1C 7.9 He is not interested in adding medications or going to nutrition. He is determined to get his diet under control. He agreed to make some aggressive dietary changes and come back in 3 months to get his A1C checked. F/up 3 months for DM2 Essential hypertension 01/02/2018 Assessment & Plan (12/01/2023 12:00 PM EDT): At goal, continue current regimen Anxiety 08/03/2017 Assessment & Plan (02/11/2024 5:30 PM EST): Increased depression symptoms in care with psychiatry. Reports active discussion of symptoms and pain Chronic low back pain 08/03/2017 Assessment & Plan (08/11/2024 11:17 AM EDT): May increase tramadol as prescribed below Assessment & Plan (05/11/2022 3:32 PM EDT): Patient has had 2 negative drug tests? Tramadol? Knee pain 08/03/2017 Assessment & Plan (05/12/2022 12:51 PM EDT): He has lost 7 lbs since last time I saw him. He feels positive about losing weight and feels he is on the right path. He used to [address]. He would like to continue working on weight loss before considering other options. We will continue on this weight loss path and he will contact the office to set up an appointment if he cannot manage his knee pain. Nicotine dependence 08/03/2017 Assessment & Plan (04/11/2024 12:13 PM EST): Consider buproprion with psychiatry for appetite and tobacco cessation, will discuss with psych Obstructive sleep apnea syndrome 08/03/2017 Assessment & Plan (09/26/2024 6:09 PM EDT): Upcoming visit with sleep medicine Assessment & Plan (12/01/2023 12:00 PM EDT): Reports nightly compliance with mask Encounters Date Type Department Care Team Description 10/08/2024 Patient Outreach [facility] [address] [place] [address] Lois Gaming NP Care Coordination (C3 CM-W Deepika Pelletier outreach pt 1) 10/08/2024 Telephone [facility] [address] [place] [address] Lois Gaming NP PT-1 10/08/2024 Travel 10/07/2024 Telephone [facility] [address] [place] [address] Lois Gaming NP Prior Authorization 10/07/2024 Refill [facility] [address] [place] [address] Lois Gaming NP Type 2 diabetes 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, without long-term current use of insulin ([facility]) 09/26/2024 2:30 PM EDT Office Visit [facility] [address] [place] [address] Lois Gaming NP Morbid obesity (CMS/[facility]) (Primary Dx); Type 2 diabetes 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, without long-term current use of insulin ([facility]); Numbness of upper extremity; Other iron deficiency anemia; Obstructive sleep apnea syndrome; Chronic low back pain, unspecified back pain laterality, unspecified whether sciatica present 09/25/2024 Telephone [facility] [address] [place] [address] Lois Gaming NP Chart Prep 09/22/2024 Refill [facility] [address] [place] [address] Lois Gaming NP Numbness of upper extremity 09/19/2024 Travel 09/08/2024 Refill [facility] [address] [place] [address] Lois Gaming NP Type 2 diabetes 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, without long-term current use of insulin ([facility]) 09/07/2024 Refill [facility] [address] [place] [address] Kadie Villalpando MD 09/01/2024 Refill [facility] [address] [place] [address] Lois Gaming NP Chronic low back pain, unspecified back pain laterality, unspecified whether sciatica present 08/29/2024 Refill [facility] [address] [place] [address] Lois Gaming NP Intertrigo 08/27/2024 2:00 PM EDT Office Visit [facility] [address] [place] [address] Rich, Anitha, OD Diabetes type 2, no ocular involvement ([facility]) (Primary Dx); White without pressure of peripheral retina of both eyes; Presbyopia 08/27/2024 Travel 08/26/[address] [address] Lois Gaming NP 08/26/2024 Refill [facility] [address] [place] [address] Lois Gaming NP Type 2 diabetes mellitus without complication, unspecified whether jail insulin use (CMS/[facility]) 08/22/[address] [address] Lois Gaming NP [address] [address] Lois Gaming NP Low vitamin D level 08/14/2024 Patient Outreach [address] [address] Lois Gaming NP Care Coordination (CH[facility] outreach for SDOH PT-1 and food needs-referral completed /) 08/14/[address] [address] Lois Gaming NP PT1 08/11/[address] [address] Lois Gaming NP Medication Question 08/07/[address] [address] Lois Gaming NP 08/01/[address] [address] Lois Gaming NP Prior Authorization 08/01/[address] [address] Lois Gaming NP Medication Question 08/01/[address] [address] Lois Gaming NP 08/01/2024 Refill [facility] [address] [place] [address] Lois Gaming NP Chronic low back pain, unspecified back pain laterality, unspecified whether sciatica present 07/30/[address] [address] Lois Gaming NP Call Back Request 07/25/2024 3:30 PM EDT Office Visit [address] [address] Lois Gaming NP Class 3 severe obesity due to excess calories with body mass index (BMI) of 50.0 to 59.9 in adult (Primary Dx); Type 2 diabetes 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, without long-term current use of insulin ([facility]); Left hand pain; Chronic low back pain, unspecified back pain laterality, unspecified whether sciatica present; Sleep apnea, unspecified type; Intertrigo 07/25/2024 Travel 07/23/[address] [address] Falguni Luo [place] Chart prep 07/17/2024 9:00 AM EDT Clinical Support [address] [address] Deborah Logan RN [facility] (current) use of opiate analgesic (Primary Dx) 07/17/[address] [address] Deborah Logan RN BPI updated 07/17/2024 Travel 07/16/[address] [address] Lois Gaming NP Mild persistent asthma without complication from Last 3 Months Immunizations Immunization Administration Dates Next Due Hep B, adult 07/30/2020,03/03/2020,02/02/2020 Influenza Injectable Quadriv alant Preservative Free IIV4 MDCK 12/20/2022 Influenza injectable quadriv alent IIV4 with preservative 11/02/2017,12/22/2015 Influenza injectable quadriv alent preservative free 10/24/2021,10/28/2019,11/11/2018 Influenza, IIV3, injectable 01/05/2022, 5 Influenza, seasonal, injecta ble, preservative free 02/11/2024,01/10/2017 Pfizer Covid-19 Vaccine 12+ 02/11/2024, 4 Pneumococcal Conjugate PCV 20 03/02/2023 Pneumococcal Polysaccharide PPSV23 12/31/2018 Tdap 12/04/2018,12/22/2015 Social History Tobacco Use Types Packs/Day Years Used Date Smoking Tobacco: Every Day Cigarettes Passive Smoke Exposure: Current Smokeless Tobacco: Never Tobacco Cessation:Ready to Q uit: Not Asked; Counseling Given: Not Answered Comments:Smoking since age 11 Alcohol Use Standard Drinks/Week Comments Never 0 [...] not to disclose 2021 10:19 AM EDT Last Filed Vital Signs Vital Sign Reading Time Taken Comments Blood Pressure 120/86 09/26/2024 2:45 PM EDT Pulse 114 09/26/2024 2:45 PM EDT Temperature 36.6 C (97.9 F) 09/26/2024 2:45 PM EDT Respiratory Rate 26 09/26/2024 2:45 PM EDT Oxygen Saturation 97% 09/26/2024 2:45 PM EDT Inhaled Oxygen Concentration - - Weight 169 kg (371 lb 9.6 oz) 09/26/2024 2:45 PM EDT Height 167.6 cm (5' 6 ) 09/26/2024 2:45 PM EDT Body Mass Index 59.98 09/26/2024 2:45 PM EDT Plan of Treatment Upcoming Encounters Date Type Department Care Team (Late st Contact Info) Description 10/15/2024 9:00 AM EDT Clinical Support [facility] [address] [place] [address] Deborah Logan, RN Health Maintenance Due Date Last Done Comments CT Colonography 1976 FIT DNA/Cologuard 1976 FIT 1976 FOBT 1976 Sigmoidoscopy 1976 Diabetes: Foot Exam 1986 Family Planning (PISQ) 08/16/1991 Zoster Vaccines (1 of 2) 08/16/1995 Diabetes: Urine Protein Screening 01/26/2022 01/26/2021, 01/19/2020, 10/28/2019 COVID-19 Vaccine (6 - Moderna risk season) 2024 02/11/2024, 03/02/2023, 02/22/2021, Additional history exists Influenza Vaccine (#1) 2024 , 12/20/2022, 01/05/2022, Additional history exists Depression Monitoring 10/12/2024 04/11/2024, 025 Diabetes: Hemoglobin A1C 10/17/2024 025, 01/21/2024, 11/09/2023, Additional history exists Alcohol/Substance Use Screening 12/20/2024 12/21/2023 Lipid Panel 01/20/2025 01/21/2024, 0208/2023, 03/20/2022, Additional history exists SDOH Screening 02/10/2025 02/11/2024 Eye Exam 08/27/2025 08/27/2024, 08/06, 08/27/2024, Additional history exists Tobacco Screening 09/26/2025 09/26/2024 Disability Screening 10/08/2025 10/08/2024 DTaP/Tdap/Td Vaccines (3 - Td or Tdap) 12/04/2028 12/04/2018, 12/22/2015 Colonoscopy 03/14/2029 03/14/2022 Colorectal Cancer Screening 03/14/2029 RSV Patients and Patients Aged 60 years or older (1 - 1-dose 75+ series) 08/16/2051 Hepatitis B Vaccines Completed 07/30/2020, 03/03/2020, 02/02/2020 HIV Screening Completed 03/20/2022 Hepatitis C Screening Completed 03/20/2022 Pneumococcal Vaccine: Pediatrics (0 to 5 Years) and At-Risk Patients (6 to 49) Years Completed 03/02/2023, 12/31/2018 HIB Vaccines Aged Out No longer eligi ble based on patient's age to complete this topic HPV Vaccines Aged Out No longer eligi ble based on patient's age to complete this topic Hepatitis A Vaccines Aged Out No long er eligible based on patient's age to complete this topic IPV Vaccines Aged Out No longer eligi ble based on patient's age to complete this topic Meningococcal B Vaccine Aged Out No l onger eligible based on patient's age to complete this topic Meningococcal Vaccine Aged Out No mariah ni eligible based on patient's age to complete this topic RSV under 20 months Aged Out No longe r eligible based on patient's age to complete this topic Rotavirus Vaccines Aged Out No longer eligible based on patient's age to complete this topic Procedures Procedure Name Priority Date/Time Associated Diagnosis Comments POCT GLUCOSE Routine 09/26/2024 2:47 PM EDT Type 2 diabetes 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, without long-term current use of insulin (CMS/HCC) POCT GLUCOSE Routine 07/25/2024 3:25 PM EDT Type 2 diabetes 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, without long-term current use of insulin (CMS/HCC) POCT KIMMY-14 URINE DRUG SCREEN Routine 07/17/2024 9:29 AM EDT [facility] (current) use of opiate analgesic HEMOGLOBIN A1C Routine 07/17/2024 8:49 AM EDT Type 2 diabetes 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, without long-term current use of insulin (CMS/HCC) TSH W/REFLEX TO FT4 Routine 07/17/2024 8 :49 AM EDT Type 2 diabetes 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, without long-term current use of insulin (CMS/HCC) COMPREHENSIVE METABOLIC PANEL Routine 07/17/2024 8:49 AM EDT Type 2 diabetes 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, without long-term current use of insulin (CMS/HCC) CBC WITH AUTO DIFFERENTIAL Routine 07/17/2024 8:49 AM EDT Type 2 diabetes 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, without long-term current use of insulin (CMS/HCC) LIPID PANEL, STANDARD Routine 01/21/2024 8:37 AM EST Type 2 diabetes mellitus without complication, unspecified whether jail insulin use (CMS/HCC) HEPATITIS C AB W/REFL TO HCV RNA, QN, PCR Routine 03/20/2022 8:20 AM EST HIV 1 RNA, QN PCR W/RFL REBECA (RTI,PI,INTEGRASE) Routine 03/20/2022 8:20 AM EST HM COLONOSCOPY Routine 03/14/2022 ALBUMIN, RANDOM URINE W/CREATININE Routine 01/26/2021 8:20 AM EST from Last 3 Months or Most Recently Relevant to Health Maintenance Results * POCT Glucose (09/26/2024 2:47 PM EDT) Only the most recent of2 resultswithin the time period is included. Pathologist [facility] Glucose Blood, POC 193 60 - 200 mg/dL QC Media Lot # [id number] Lot# Expiration Date Blood Capillary blood specimen / Unknown 09/26/2024 2:47 PM EDT Lois Gaming NP POINT OF CARE TEST ENTER/EDIT OR DERABLES Final Result * POCT KIMMY-14 Urine Drug Screen (07/17/2024 9:29 AM EDT) Pathologist [facility] THC Positive Cocaine Screen, Urine Negative Opiate Screen, Urine Negative Methamphetamine Screen Urine Negative Amphetamine Screen, Urine Negative Benzodiazepines Screen, Urine Negative Barbiturate Screen, Urine Negative Methadone Screen, Urine Negative Buprenophine Screen, Urine Negative TCA, Urine Negative MDMA Urine Negative ng/mL Oxycodone Screen, Urine Negative Phencyclidine (PCP), Urine Negative Propoxyphene, Urine Negative Fentanyl, Urine Negative Urine Urine specimen obtained by clean catch procedure / Unknown 07/17/2024 9:29 AM EDT Narrative Deborah Logan RN - 07/17/2024 9:29 AM EDT UTOX cup Lot#[id number] Exp. 12/05/25 Internal Pass Control Lois Gaming NP POINT OF CARE TEST ENTER/EDIT OR DERABLES Final Result * TSH W/Reflex to FT4 (07/17/2024 8:49 AM EDT) Pathologist [facility] TSH reflex Free T4 2.40 0.32 - 4.0 uIU/mL [facility] Blood Venous blood specimen / Unknown 07/17/2024 8:49 AM EDT 07/17/2024 11:10 AM EDT us Lois Gaming COMMERCIAL ART INSTRUCTOR LAB BLOOD ORDERABLES Final Resul t [facility] [address] [place] [phone] [phone] * (ABNORMAL) CBC auto differential (07/17/2024 8:49 AM EDT) White Blood Count 10.3 4.8 - 10.8 X10*3/uL [facility] Red Blood Count 4.79 4.60 - 5.80 X10*6/uL [facility] Hemoglobin 13.3(L) 14.0 - 18.0 g/dl [facility] Hematocrit 41.1(L) 42.0 - 52.0 % [facility] Mean Corpuscular Volume 85.8 80.0 - 98.0 fL [facility] Mean Corpuscular Hemoglobin 27.8 27.0 - 33.0 pg [facility] Mean Corpuscular HGB Conc 32.4 31.0 - 36.0 g/dl [facility] Red Cell Distribution Width 14.9 11.0 - 16.0 % [facility] Platelet Count 295 160 - 400 X10*3/uL [facility] Mean Platelet Volume 9.3(L) 9.4 - 12.4 fL [facility] Neutrophils Percent Auto 70.7 45 - 73 % [facility] Imm Gran Pct Auto 0.4 0.0 - 0.4 % [facility] Lymphocytes Percent Auto 22.1 20 - 40 % [facility] Monocytes Percent Auto 5.3 2 - 11 % [facility] Eosinophils Percent Auto 1.1 0 - 4 % [facility] Basophils Percent Auto 0.4 0 - 2 % [facility] NRBC Pct Auto 0.0 0.0 - 0.2 /100WBC [facility] Neutrophils Absolute Auto 7.3 2.0 - 8.3 x10*3/uL [facility] Imm Gran Abs Auto 0.04(H) 0.00 - 0.03 X10*3/uL [facility] Lymphocytes Absolute Auto 2.3 1.2 - 4.9 X10*3/uL [facility] Monocytes Absolute Auto 0.6 0.1 - 1.2 X10*3/uL [facility] Eosinophils Absolute Auto 0.1 0.0 - 0.4 X10*3/uL [facility] Basophils Absolute Auto 0.0 0.0 - 0.2 X10*3/uL [facility] NRBC Abs Auto 0.000 0.0 - 0.012 X10*3/uL [facility] Blood Venous blood specimen / Unknown 07/17/2024 8:49 AM EDT 07/17/2024 11:10 AM EDT us Lois Gaming NP LAB BLOOD ORDERABLES Final Resul t [facility] [address] [place] [phone] * (ABNORMAL) Hemoglobin A1c (07/17/2024 8:49 AM EDT) Hemoglobin A1c 7.7(H) <6.0 % [facility] Comment:Hemoglobin A1C Refer ence Range Adults: 4.8 - 6.0 % Non diabetic: < 6.0 % Goal: < 7.0 %Additional Action Suggested: > 8.0 %Note: Hemoglobin A1c results are invalid for patients with abnormal amounts of HbF. Blood transfusions may impact the HbA1c concentration in the patient sample. Estimated Average Glucose 174 mg/dL [facility] Comment:eAG = Estimated ave rage glucose which is %A1C expressed asaverage glucose, using the formula of the T5A-QuiblnfUjrmtrm Glucose study (ADAG), Diabetes Care, Vol.31,#8,Sep. 2007 Blood Venous blood specimen / Unknown 07/17/2024 8:49 AM EDT 07/17/2024 11:10 AM EDT us Lois Graef COMMERCIAL ART INSTRUCTOR LAB BLOOD ORDERABLES Final Resul t Performing Organization Address [facility]/ZIP Co de Phone Number [facility] [address] [place] [phone] [phone] * (ABNORMAL) Comprehensive Metabolic Panel (07/17/2024 8:49 AM EDT) Sodium 137 135 - 145 mmol/L [facility] Potassium 3.9 3.3 - 5.1 mmol/L [facility] Chloride 103 96 - 108 mmol/L [facility] Carbon Dioxide 25 22 - 29 mmol/L [facility] Anion Gap 13 12 - 20 [facility] Urea Nitrogen (BUN) 17(H) 9 - 16 mg/dL [facility] Creatinine, Serum 0.79 0.5 - 1.4 mg/dL [facility] Estimated Glomerular Filt Rate >60 [facility] Comment:Chronic Kidney Disea se: Estimated GFR < 60 mL/min/1.29x7Zxtsln Kidney Disease: Estimated GFR < 15 mL/min/1.73m2 Glucose 248(H) 60 - 115 mg/dL [facility] Calcium 8.8 8.4 - 10.2 mg/dL [facility] Bilirubin, Total 0.2 0.0 - 1.0 mg/dL [facility] Aspartate Amino Transferase 18 5 - 37 U/L [facility] Alanine Aminotransferase 15 0 - 40 U/L [facility] Total Protein 7.0 6.5 - 8.0 g/dL [facility] Albumin Level 4.0 3.5 - 5.0 g/dL [facility] Alkaline Phosphatase 118(H) 39 - 117 U/L [facility] Blood Venous blood specimen / Unknown 07/17/2024 8:49 AM EDT 07/17/2024 11:10 AM EDT us Lois Gaming COMMERCIAL ART INSTRUCTOR LAB BLOOD ORDERABLES Final Resul t Performing Organization Address [facility]/ZIP Co de Phone Number [facility] [address] [place] [phone] [phone] * Lipid Panel, Standard (01/21/2024 8:37 AM EST) Triglycerides 144 <150 mg/dL [facility] Comment:Desirable Triglyceri de: less than 150 mg/dLBorderline High Triglyceride 150-199 mg/dLHigh Triglyceride: 200-499 mg/dLVery High Triglyceride: greater than or equal to 5OO mg/dL Cholesterol 149 <200 mg/dL [facility] Comment:Desirable Cholestero l: less than 200 mg/dLBorderline High Cholesterol: 200-239 mg/dLHigh Cholesterol: greater than 239 mg/dL LDL Cholesterol Calculated 61 <100 mg/dL [facility] Comment:Desirable LDL: less than 100 mg/dLNear Optimal/Above Optimal LDL: 110- 129 mg/dLBorderline High LDL: 130-159 mg/dLHigh LDL: 160-189 mg/dLVery High LDL: greater than or equal to 190 mg/dL HDL Cholesterol 60 >40 mg/dL [facility] Comment:Desirable HDL: great er than 40 mg/dL Note: This HDL assay may give artificially low results in patients with liver disease. Blood Venous blood specimen / Unknown 01/21/2024 8:37 AM EST 01/21/2024 12:12 PM EST us Lois Gaming NP LAB BLOOD ORDERABLES Final Resul t [facility] [address] [place] [phone] * HIV-1 RNA, Quantitative, Real-Time PCR with Reflex to Genotype (RTI, PI, Integrase) (03/20/2022 8:20 AM EST) HIV 1 RNA, QN PCR NOT DETECTED copies/mL [facility], HIV 1 RNA, QN PCR NOT DETECTED Log copies/mL [facility], Comment: REFERENCE RANGE: NOT DETECTED copies/mL NOT DETECTED Log copies/mL This test was performed using Real-Time Polymerase Chain Reaction. Reportable range is 20 to 10,000,000 copies/mL (1.30-7.00 Log copies/mL). 03/20/2022 8:20 AM EST 03/20/2022 8:21 AM EST Narrative [facility] - 03/23/2022 8:05 PM EST FASTING:YES FASTING: YES Dillon Alcantara [facility] LAB BLOOD ORDERABLES Final Res ult Performing Organization Address [facility]/ZIP Co de Phone Number [address], [facility] [address] [employer]/[facility], [id number] [place] [address], [place] [phone] * Hepatitis C Antibody with Reflex to HCV, RNA, Quantitative, Real-Time PCR (03/20/2022 8:20 AM EST) Hepatitis C Antibody NON-REACT TAY NON-REACT TAY [employer] [place] [employer] Index 0.04 <1.00 [employer] Comment: HCV antibody was non-reactive. There is no laboratory evidence of HCV infection. In most cases, no further action is required. However, if recent HCV exposure is suspected, a test for HCV RNA (test code 94714) is suggested. For additional information please refer to http://education.Futon/faq/GCA12s5 (This link is being provided for informational/ educational purposes only.) 03/20/2022 8:20 AM EST 03/20/2022 8:21 AM EST Narrative [facility] - 03/23/2022 8:05 PM EST FASTING:YES FASTING: YES Dillon Alcantara [facility] LAB BLOOD ORDERABLES Final Res ult Performing Organization Address City/[facility]/ZIP Co de Phone Number [address], [place] [address] [employer] [address] [facility], (Nl2) [place] [address] * Hm Colonoscopy (03/14/2022) Colonoscopy Normal Normal us Historical Provider HEALTH MAINTENANCE Final Result * ALBUMIN, RANDOM URINE W/CREATININE (01/26/2021 8:20 AM EST) Microalbumin Urine 0.2 See Note: mg/dL [facility] Comment: Reference Range: Reference Range Not established Microalb/Creat Ratio 2 <30 mcg/mg creat [facility] Comment: The ADA defines abnormalities in albumin excretion as follows: Albuminuria Category Result (mcg/mg creatinine) Normal to Mildly increased <30 Moderately increased 30-299 Severely increased > OR = 300 The ADA recommends that at least two of three specimens collected within a 3-6 month period be abnormal before considering a patient to be within a diagnostic category. Creatinine, Urine 85 20 - 320 mg/dL [facility] 01/26/2021 8:20 AM EST Shannen Jefferson MD LAB URINE ORDERABLES Final R esult Performing Organization Address City/State/[facility] Co de Phone Number [facility] [address] [place] [address] from Last 3 Months or Most Recently Relevant to Health Maintenance Insurance [facility] C3 Care Teams Emergency Response Technician Relationship Specialty Start Date End Date Lois Gaming NP [address] [place] [phone] PCP - General Family Medicine 10/05/23 [facility] [place] 11/11/23
--- OUTSIDE RECORDS SUMMARY | 2024-10-09 09:53 | XMS_ITS | Encounter Summary ---
Author Organization [employer] Address [address] [facility] 7t [place] [address] Care Team Providers Care Electro Mechanic Name Role Phone Lois Gaming SHANNA Primary Care Provider [phone] Reason for Visit * Reason Comments Med Refill Encounter Details Date Type Department Care Team ([facility] st Contact Info) Description 09/07/2024 Refill [facility] [address] [place], [place] [phone] Kadie Villalpando MD [address] [place], [place] [phone] Social History Tobacco Use Types Packs/Day Years [...] Description 10/15/2024 9:00 AM EDT Clinical Support [facility] [address] [place] [address] Deborah Logan RN documented as of this encounter Visit Diagnoses Not on filedocumented in this encounter Additional Health Concerns Assessment Noted Time PHQ-9 Depression Total Score: 24 025 10:48 AM EST documented as of this encounter Care Teams Electro Mechanic Relationship Specialty Start Date End Date Lois Gaming NP [address] [place] [address] PCP - General Family Medicine 10/05/23 [facility] 11/11/23 documented as of this encounter
--- OUTSIDE RECORDS SUMMARY | 2024-10-09 09:53 | XMS_ITS | Encounter Summary ---
Author Organization [employer] Address [address] [facility] 7t [place] [address] Care Team Providers Care Optician Apprentice Dispensing Name Role Phone Quinton Dillon AGNMarlon Primary Care Provider Unavail Kristi PalomoP Primary Care Provider [phone] Lois Gaming NP Primary Care Provider Reason for Visit * Reason Comments Med Refill Encounter Details Date Type Department Care Team (Late st Contact Info) Description 02/22/2022 Refill [facility] [address] [place] [address] Mireya Andersen MD [address] [place], [place] [phone] Numbness of upper extremity (Primary Dx); Low vitamin D level Social History Tobacco [...] Clinical Support [facility] [address] [place] [address] Deborah Logan, RN documented as of this encounter Visit Diagnoses Diagnosis Numbness of upper extremity- Primary Low vitamin D level documented in this encounter Additional Health Concerns Assessment Noted Time PHQ-9 Depression Total Score: 17 023 9:10 AM EST documented as of this encounter Care Teams Optician Apprentice Dispensing Relationship Specialty Start Date End Date Dillon Alcantara AGNP PCP - General Family Medicine 01/05/22 10/15/22 Kristi Bae FNP [address] [place] [address] PCP - General Family Medicine 10/16/22 10/04/23 Lois Gaming NP [address] [place] [address] PCP - General Family Medicine 10/05/23 [facility] 11/11/23 documented as of this encounter
--- OUTSIDE RECORDS SUMMARY | 2024-10-09 09:53 | XMS_ITS | Encounter Summary ---
Author Organization [employer] Address [address] [facility] 7t [place] [address] Care Team Providers Care Coil Spring Assembler Name Role Phone Dillon Alcantara AGNMarlon Primary Care Provider Unavail able Kristi BaeP Primary Care Provider [phone] Lois Gaming NP Primary Care Provider Reason for Visit * Reason Onset Date Comments Durable Medical Equipment 06/07/2022 Encounter Details Date Type Department Care Team (Late st Contact Info) Description 06/07/2022 Telephone [facility] [address] [place] [address] Dillon Alcantara AGNP Durable Medical Equipment Social History Tobacco Use Types Packs/Day Years [...] suspected to have Coronavirus/COVID-19? 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 States he has been waking up at 3am with sharp pain in his neck and taking an additional Tramadol. Pill count performed. Pt has 56 pills at this time, 64 were at least expected. Reviewed his Tramadol order. Explained that he is to take 1 or 2 tablets every 8 hours. Explained that if his pain has changed he will need to communicate to his PCP to see if PCP will allow changes to his pain medication. Also reviewed that he wont be able to receive an early refill. 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 Any questions may contact phone # [phone]. documented in this encounter Plan of Treatment Upcoming Encounters Date Type Department Care Team (Late st Contact Info) Description 10/15/2024 9:00 AM EDT Clinical Support [facility] [address] [place] [address] Deborah Logan, BAM documented as of this encounter Visit Diagnoses Not on filedocumented in this encounter Additional Health Concerns Assessment Noted Time PHQ-9 Depression Total Score: 17 023 9:10 AM EST documented as of this encounter Care Teams Coil Spring Assembler Relationship Specialty Start Date End Date Dillon Alcantara AGNP PCP - General Family Medicine 01/05/22 10/15/22 Kristi Bae FNP [address] [place] [address] PCP - General Family Medicine 10/16/22 10/04/23 Lois Gaming NP [address] [place] [address] PCP - General Family Medicine 10/05/23 [facility] 11/11/23 documented as of this encounter
--- OUTSIDE RECORDS SUMMARY | 2024-10-09 09:53 | XMS_ITS | Encounter Summary ---
Author Organization [employer] Address [address] [facility] 7t [place] [address] Care Team Providers Care Retail Salesperson Name Role Phone Dillon Alcantara AGNMarlon Primary Care Provider Unavail able Kristi BaeP Primary Care Provider [phone] Lois Gaming NP Primary Care Provider [phone] Reason for Visit * Reason Comments Med Refill Encounter Details Date Type Department Care Team ([facility] Contact Info) Description 06/22/2022 Refill [facility] [address] [place] [address] Dillon Alcantara AGNP Chronic low back pain, unspecified back pain [...] suspected to have Coronavirus/COVID-19? No / Unsure 06/15/2022 8:40 AM EDT documented as of this encounter Plan of Treatment Upcoming Encounters Date Type Department Care Team ([facility] Contact Info) Description 10/15/2024 9:00 AM EDT Clinical Support [facility] [address] [place] [address] Deborah Logan, BAM documented as of this encounter Visit Diagnoses Diagnosis Chronic low back pain, unspecified back pain laterality, unspecified whether sciatica present documented in this encounter Additional Health Concerns Assessment Noted Time PHQ-9 Depression Total Score: 17 023 9:10 AM EST documented as of this encounter Care Teams Retail Salesperson Relationship Specialty Start Date End Date Dillon Alcantara AGNP PCP - General Family Medicine 01/05/22 10/15/22 Kristi Bae FNP [address] [place] [address] PCP - General Family Medicine 10/16/22 10/04/23 Lois Gaming NP [address] [place] [address] PCP - General Family Medicine 10/05/23 [facility] 11/11/23 documented as of this encounter
--- OUTSIDE RECORDS SUMMARY | 2024-10-09 09:53 | XMS_ITS | Encounter Summary ---
Author Organization [employer] Address [address] [place] [address] Care Team Providers Care Tube Filler Name Role Phone Lois Gaming NP Primary Care Provider [phone] Reason for Visit * Reason Onset Date Comments Prior Authorization 10/07/2024 Encounter Details Date Type Department Care Team ([facility] st Contact Info) Description 10/07/2024 Telephone [facility] CHC MED & PEDS [address] [place] [address] Lois Gaming NP [address] [place] [address] Prior Authorization Social History Tobacco Use Types [...] encounter Miscellaneous Notes * Telephone Encounter - Neno Simpson - 10/07/2024 4:44 PM EDT Script for Tirzepatide-Weight Management (Zepbound) 7.5 MG/0.5ML solution auto- injector requires a prior authorization. documented in this encounter Plan of Treatment Upcoming Encounters Date Type Department Care Team (Late st Contact Info) Description 10/15/2024 9:00 AM EDT Clinical Support [facility] MEDICINE [address] [place] [address] Deborah Logan RN documented as of this encounter Visit Diagnoses Not on filedocumented in this encounter Additional Health Concerns Assessment Noted Time PHQ-9 Depression Total Score: 24 025 10:48 AM EST documented as of this encounter Care Teams Tube Filler Relationship Specialty Start Date End Date Lois Gaming NP [address] [place] [address] PCP - General Family Medicine 10/05/23 [facility] 11/11/23 documented as of this encounter
--- OUTSIDE RECORDS SUMMARY | 2024-10-09 09:53 | XMS_ITS | Encounter Summary ---
Author Organization [employer] Address [address] [place] [address] Care Team Providers Care Wet Washer Machine Name Role Phone Lois Gaming SHANNA Primary Care Provider [phone] Encounter Details Date Type Department Care Team (Late st Contact Info) Description 10/08/2023 Orders Only [facility] CHC MED & PEDS [address] [place], [place] [phone] Kristi Bae FNP [address] [place] [address] Social History Tobacco Use Types Packs/Day Years [...] Description 10/15/2024 9:00 AM EDT Clinical Support [facility] MEDICINE [address] [place] [address] Deborah Logan RN documented as of this encounter Visit Diagnoses Not on filedocumented in this encounter Additional Health Concerns Assessment Noted Time PHQ-9 Depression Total Score: 22 024 10:32 AM EST documented as of this encounter Care Teams Wet Washer Machine Relationship Specialty Start Date End Date Lois Gaming NP [address] [place] [address] PCP - General Family Medicine 10/05/23 [facility] 11/11/23 documented as of this encounter
--- OUTSIDE RECORDS SUMMARY | 2024-10-09 09:53 | XMS_ITS | Encounter Summary ---
Author Organization [employer] Address [address] [place] [address] Care Team Providers Care Receiving Teller Name Role Phone Kristi BaeP Primary Care Provider [phone] Lois Gaming NP Primary Care Provider Reason for Visit * Reason Onset Date Comments Med Refill 05/02/2023 Encounter Details Date Type Department Care Team ([facility] st Contact Info) Description 05/02/2023 Telephone [facility] MEDICINE [address] [place], [place] [phone] Kristi Bae FNP [address] [place], [place] [phone] Med Refill Social History Tobacco Use Types [...] encounter Miscellaneous Notes * Telephone Encounter - Windy Donahue LPN - 05/02/2023 8:43 AM EDT Medication pended to PCP. * Telephone Encounter - Lucy Schmitz - 05/02/2023 8:09 AM EDT TC from pt requesting medication refill. Medications needing refill : acetaminophen (Tylenol 8 Hour) 650 MG ER tablet cyanocobalamin (Vitamin B-12) 1000 MCG tablet To be sent to: [id number] - [place], [place] - [facility] [place] [facility] [place] documented in this encounter Plan of Treatment Upcoming Encounters Date Type Department Care Team (Late st Contact Info) Description 10/15/2024 9:00 AM EDT Clinical Support [facility] MEDICINE [address] [place] [phone] Deborah Logan RN documented as of this encounter Visit Diagnoses Not on filedocumented in this encounter Additional Health Concerns Assessment Noted Time PHQ-9 Depression Total Score: 22 024 10:32 AM EST documented as of this encounter Care Teams Receiving Teller Relationship Specialty Start Date End Date Kristi Bae FNP [address] [place] [address] PCP - General Family Medicine 10/16/22 10/04/23 Lois Gaming NP [address] [place] [address] PCP - General Family Medicine 10/05/23 [facility] [place] 11/11/23 documented as of this encounter
--- OUTSIDE RECORDS SUMMARY | 2024-10-09 09:53 | XMS_ITS | Encounter Summary ---
Author Organization [employer] Address [address] [place] [address] Care Team Providers Care Test Evaluator Name Role Phone Lois Gaming NP Primary Care Provider [phone] Reason for Visit * Reason Onset Date Comments Med Refill 10/07/2024 Encounter Details Date Type Department Care Team (Late st Contact Info) Description 10/07/2024 Refill [facility] CHC MED & PEDS [address] [place], [place] [phone] Lois Gaming NP [address] [place] [address] Type 2 diabetes 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, without long-term current use of insulin ([facility]) Social History Tobacco Use Types Packs/Day Years [...] your housing situation today? I have adams marla 02/23/[address] you li [...] encounter Miscellaneous Notes * Telephone Encounter - Lizzie Delgado LPN - 10/07/2024 11:19 AM EDT Last seen 09.26.24 documented in this encounter Plan of Treatment Upcoming Encounters Date Type Department Care Team (Late st Contact Info) Description 10/15/2024 9:00 AM EDT Clinical Support [facility] MEDICINE [address] [place] [address] Deborah Logan RN documented as of this encounter Visit Diagnoses Diagnosis Type 2 diabetes 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, without long-term current use of insulin ([facility]) documented in this encounter Additional Health Concerns Assessment Noted Time PHQ-9 Depression Total Score: 24 025 10:48 AM EST documented as of this encounter Care Teams Test Evaluator Relationship Specialty Start Date End Date Lois Gaming NP [address] [place] [address] PCP - General Family Medicine 10/05/23 [facility] [place] 11/11/23 documented as of this encounter
== END 2024-10-09 10:25 | disposition home or self-care (01) ==
LOC: HO.HSMS 09:17
PROVIDERS: PCP Nurse Practitioner Family; Visit Provider Physician Assistant Medical
DX: G47.19 Other hypersomnia (principal); R20.0 Anesthesia of skin; R20.2 Paresthesia of skin; G25.81 Restless legs syndrome
CPT/HCPCS: 99204

== ENCOUNTER → 2024-10-09 09:16 | Outpatient (BNVA) | payer MEDICAID, SELFPAY | PROVIDERS: PCP Nurse Practitioner Family; Visit Provider Physician Assistant Medical | DX: G47.19 Other hypersomnia (principal); R20.2 Paresthesia of skin; R20.0 Anesthesia of skin; G25.81 Restless legs syndrome | CPT/HCPCS: 99212 ==

== ENCOUNTER 2024-10-12 13:55 | Emergency (ER) | payer MEDICAID, SELFPAY ==
--- NOTE | ~2024-10-12 | CT_ITS ---
CLINICAL HISTORY: left sided neck swelling CT soft tissue neck with contrast Comparison: None provided Findings: Images associated with a left shoulder CT were included with this image set. These are reported separately. The visualized intracranial contents are unremarkable. No prevertebral fluid. Epiglottis is within normal limits. Pharyngeal mucosal space and parapharyngeal fat are normal. Apparent focal narrowing of the airway at the level of the palatine tonsils is likely transient and incidental. Salivary glands are unremarkable. No sialoliths. Thyroid gland is unremarkable. No consolidation at the lung apices. There is a tiny cortical defect and adjacent tiny bone fragments associated with the posterior inferior cortex of the medial aspect of the left clavicle with adjacent soft tissue edema ( series 6 images [id number] ). Additional tiny bone fragment adjacent to the anteromedial aspect of the left 1st rib. IMPRESSION: 1. There are tiny avulsion fractures of the left clavicle and left 1st rib. These may be at the level of the costoclavicular ligament. This document has been electronically signed by: Aury Cantu MD on 10/12/2024 19:21:07
--- NOTE | ~2024-10-12 | CT_ITS ---
CLINICAL HISTORY: shoulder --- Additional Notes or Special Instructions: left shoulder pain. tender to ROM CT left shoulder with contrast Comparison: 10/12/2024 Findings: Images associated with a CT soft tissue neck examination were included with this image set. These are reported separately. There is no fracture or dislocation. There is no shoulder effusion. There are mild arthritic changes. There is no soft tissue mass, hematoma or radiopaque foreign body. The visualized left lung is unremarkable. Impression: 1. No acute bony abnormality. This document has been electronically signed by: Aury Cantu MD on 10/12/2024 19:14:12
--- NOTE | ~2024-10-12 | XR_ITS ---
CLINICAL HISTORY: pain 4 view left shoulder Comparison: None provided Findings: Bones intact. No dislocations. Very mild arthritic change. No erosions. No radiopaque foreign body. IMPRESSION: 1. No acute findings This document has been electronically signed by: Aury Cantu MD on 10/12/2024 16:25:19
[2024-10-12 14:04] VITALS: BP 162/90; PULSE 119; O2SAT 98
[2024-10-12 14:19] VITALS: BP 156/73; PULSE 106; RESP 20; TEMP 36.6; O2SAT 96; BMI 59.3
--- NOTE | 2024-10-12 14:49 | ECG_ITS ---
Test Reason : SHOULDER PAIN Blood Pressure : */* mmHG Vent. Rate : 98 BPM Atrial Rate : 98 BPM P-R Int : 136 ms QRS Dur : 74 ms QT Int : 320 ms P-R-T Axes : 48 -1 41 degrees QTcB Int : 408 ms Normal sinus rhythm Normal ECG When compared with ECG of 14-Sep-2023 10:34, QT has shortened Referred By: Nico Hoyt Electronically Signed By: RADHA BEAVER MD
--- NOTE | 2024-10-12 15:00 | ED.EXTPRO ---
HPI - Extremity Problem General Chief complaint: Extremity Injury, Upper Stated complaint: SHOULDR PAIN AFTER PT ON WED Time Seen by Provider: 10/12/24 15:38 Source: patient Mode of arrival: ambulatory Limitations: no limitations History of Present Illness ED Provider: Dr. Stanley HPI Narrative: 49-year-old male history of necrotizing fasciitis, diabetes presented hospital today for left shoulder pain that has been worsening. Patient states she did follow up with his primary care doctor which refer him to PT. However he is concerned about swelling on his left neck. Patient stated the pain is worsening. Therefore he come to the ER for evaluation. Denies any fever. He states he feels his shoulder is swollen. Patient has difficulty range of motion due to the pain. Denies any history of IV drug use. Denies any trauma. Related Data Home Medications ?Medication ?Instructions ?Recorded ?Confirmed cholecalciferol (vitamin D3) 50 1 cap PO DAILY 02/27/22 02/07/24 mcg (2,000 unit) capsule (Vitamin D3) cyanocobalamin (vitamin B-12) 1 tab PO DAILY 02/27/22 02/07/24 1,000 mcg tablet mometasone 200 mcg/actuation HFA 1 puff inhalation BID 09/14/23 02/07/24 aerosol inhaler (Asmanex HFA) clonazepam 0.5 mg tablet 0.5 mg PO TID 09/22/24 tirzepatide (weight loss) 7.5 mg subcut QWEEK 09/22/24 mg/0.5 mL subcutaneous pen injector (Zepbound) alcohol swabs (Alcohol Prep Pads) pad topical BID 10/09/24 blood sugar diagnostic (FreeStyle #10 ea 10/09/24 Precision Neal Strips) blood-glucose sensor (FreeStyle #1 ea 10/09/24 Get 3 Plus Sensor device) ferrous gluconate 324 mg (38 mg 324 mg PO 3XW 10/09/24 iron) tablet gabapentin 300 mg capsule 300 mg PO BID 10/09/24 insulin glargine 100 unit/mL (3 20 unit subcut BID 10/09/24 mL) subcutaneous pen (Lantus Solostar U-100 Insulin) lancets 33 gauge (TRUEplus Lancets) #100 ea 10/09/24 mirtazapine 45 mg tablet 45 mg PO BEDTIME 10/09/24 omeprazole 20 mg capsule,delayed 20 mg PO DAILY 10/09/24 release pen needle, diabetic 31 gauge x #100 ea 10/09/24/ (Easy Touch) ropinirole 1 mg tablet 2 mg PO BEDTIME 10/09/24 Previous Rx's ?Medication ?Instructions ?Recorded insulin lispro 100 unit/mL See Protocol subcut QIDACHS #10 mL 10/02/23 subcutaneous solution (Admelog U-100 Insulin lispro) sertraline 50 mg tablet 150 mg (3 x 50 mg) PO DAILY #30 10/02/23 tabs sodium hypochlorite 0.125 % 1 appl topical DAILY #473 mL 10/02/23 solution (Dakin's Solution) tramadol 50 mg tablet 50 mg PO Q8H PRN pain #30 tabs 01/09/24 acetaminophen 500 mg tablet 1,000 mg (2 x 500 mg) PO Q8H 14 10/12/24 (Tylenol Extra Strength) days #84 tabs ibuprofen 400 mg tablet 400 mg PO Q8H 14 days #42 tabs 10/12/24 lidocaine 5 % topical patch 1 patch topical DAILY #10 ea 10/12/24 oxycodone 5 mg capsule 5 mg PO Q8H PRN pain 4 days #12 10/12/24 caps Allergies Allergy/AdvReac Type Severity Reaction Status Date / Time No Known Allergies Allergy Verified 10/12/24 14:20 Review of Systems Review of Systems: Pertinent review of systems as mentioned in HPI. All other system otherwise negative. [facility] Past Medical History [facility] Narrative: Medical history as mentioned in HPI Medical History Morbid obesity with BMI of 50.0-59.9, adult Open wound Necrotizing soft tissue infection Soft tissue infection Morbid obesity Back pain KIM (obstructive sleep apnea) Anxiety and depression Elevated WBCs Type 2 diabetes mellitus HTN (hypertension) Surgical History Hx of surgical procedure (~09/17/23) Hx of oral surgery Social History Social History Household Members: None Housing: Apartment Do you presently have visiting nurse or other home services: Yes ([employer] 4 times a week) Alcohol intake: never Patient Tobacco Use Status: Current everyday Tobacco user Tobacco use type: Cigarette Cigarettes Per Day: 2 Years Smoked: 25 e-Cigarette/Vaping Use: Never Used Substance Use Type: Marijuana Advance Directives Date on File: 10/03/23 service: No Physical Exam Exam: Exam: General: Pleasant, no distress, interacting appropriately Head: Normacephalic, atraumatic ENT: oral mucosa moist, neck supple, no tracheal deviation Cardiovascular: regular rate, regular rhythm, no murmurs, rubbing, gallops Respiratory: CTAB, no wheeze, rales, rhonchi Gastrointestinal: Soft, non distended, non tender, non guarding Extremities: Left shoulder pain on movement, CMS intact in the left arm. Patient does have slight swelling over the left supraclavicular area. No erythema over the left shoulder joint Neurological: Awake and alert, no facial droop noted Skin: Warm and dry Psychiatric: Appropriate mood and thoughts Vital Signs: Vital Signs: Last Vital Signs Temp 98.6 F 10/12/24 20:33 Pulse 81 10/12/24 20:33 Resp 18 10/12/24 20:33 BP 131/76 10/12/24 20:33 Pulse Ox 96 10/12/24 20:33 O2 Del Method Room Air 10/12/24 20:33 BMI result Body Mass Index 59.3 Course Course Course Narrative: RME: 49 year male presents to ED for left shoulder pain that occurred ever since having physical therapy on the shoulder this past Sunday. Patient denies any chest pain shortness of breath or neck pain. Patient states pain worse on movement. Labs EKG x-ray ordered Medications Administered Discontinued Medications Generic Name Dose Route Start Last Admin Trade Name Robbiq PRN Reason Stop Dose Admin Ceftriaxone Sodium 1 gm 10/12/24 16:25 10/12/24 17:16 Ceftriaxone Sodium 1 Gm Vial IVPUSH 10/12/24 16:26 1 gm ONCE ONE Administration Sodium Chloride 1,000 mls @ 999 mls/hr 10/12/24 16:30 10/12/24 18:17 Ns IV 10/12/24 17:30 Infused .Q1H1M VIKTORIYA Infusion Iohexol 100 ml 10/12/24 17:52 10/12/24 17:53 Iohexol 350 Mg/Ml 100 Ml Infus..Btl IV 10/12/24 17:53 80 ml ONCE ONE Administration Morphine Sulfate 4 mg 10/12/24 16:23 10/12/24 17:16 Morphine Sulfate 4 Mg/Ml Cartridge IVPUSH 10/12/24 16:24 4 mg ONCE ONE Administration Protocol Medical Decision Making Medical Decision Making [facility] Narrative: Ultrasound-guided IV I placed a 20 gauge needle into the patient's right forearm. Flush as well and draws back well. This was performed under real-time ultrasound guidance 49-year-old male history of diabetes necrotizing fasciitis presented hospital today for left shoulder pain. Given patient's history of necrotizing fascitis worsening of his left shoulder pain and leukocytosis on lab work, tachycardia, we will pursue a sepsis workup. We will obtain a CT imaging of his left shoulder as well. Patient does not appear to be acutely toxic on exam. No signs of fever. The shoulder joint does not appear to be red. There was no signs of trauma to the left shoulder as well. A focused sepsis exam was performed at that time with the encounter. Lab work was review leukocytosis of 14.0. Patient lactic acid is not elevated. Patient is tachycardic has resolved after IV fluid. Patient's CT imaging did show avulsion fracture of patient's clavicle and 1st rib. Consistent with a clavicle costal ligament. I suspect this is likely the source of his swelling in his right shoulder. I did evaluate his left shoulder joint with point of care ultrasound of his left shoulder joint. No signs of shoulder effusion. I do not think the septic arthritis given this finding. At this point we will plan to discharge patient is lidocaine patch, we will also plan to give him a short course of pain medication until he follows up with orthopedic clinic for his avulsion fracture. Sling will be provided to patient per his request for comfort. Differential Diagnosis Differential Diagnoses: The differential diagnosis associated with the presentation includes Fracture, dislocation, septic arthritis, arthritis, shoulder effusion Admission/Observation Consideration of admission/observation: Escalation of care including admission/observation considered Lab Data [facility] Lab Attestation statement: I reviewed the patient's lab results. 10/12/24 15:14 10/12/24 15:14 Labs: Lab Results 10/12/24 10/12/24 Range/Units 15:14 17:14 WBC 14.0 H (4.8-10.8) X10*3/uL RBC 4.90 (4.60-5.80) X10*6/uL Hgb 13.9 L (14.0-18.0) g/dl Hct 40.1 L (42.0-52.0) % MCV 81.8 (80.0-98.0) fL MCH 28.4 (27.0-33.0) pg MCHC 34.7 (31.0-36.0) g/dl RDW 14.0 (11.0-16.0) % Plt Count 256 (160-400) X10*3/uL MPV 9.2 L (9.4-12.4) fL Immature Gran % (Auto) 0.4 (0.0-0.4) % Neut % (Auto) 75.9 H (45-73) % Lymph % (Auto) 17.6 L (20-40) % [place] % (Auto) 5.3 (2-11) % Eos % (Auto) 0.6 (0-4) % Baso % (Auto) 0.2 (0-2) % Lymph # (Auto) 2.5 (1.2-4.9) X10*3/uL [place] # (Auto) 0.7 (0.1-1.2) X10*3/uL Eos # (Auto) 0.1 (0.0-0.4) X10*3/uL Baso # (Auto) 0.0 (0.0-0.2) X10*3/uL Abs Immat Gran (auto) 0.06 H (0.00-0.03) X10*3/uL Absolute Neuts (auto) 10.7 H (2.0-8.3) x10*3/uL Absolute Nucleated RBC 0.000 (0.0-0.012) X10*3/uL Nucleated RBC % (auto) 0.0 (0.0-0.2) /100WBC PT 11.3 (10.9-12.4) SEC INR 1.0 (0.9-1.1) APTT 27.9 (26.7-34.1) SEC Sodium 137 (135-145) mmol/L Potassium 4.1 (3.3-5.1) mmol/L Chloride 104 (96-108) mmol/L Carbon Dioxide 22 (22-29) mmol/L Anion Gap 15 (12-20) BUN 15 (9-16) mg/dL Creatinine 0.64 (0.5-1.4) mg/dL Estim Creat Clear Calc 209.5 Estimated GFR > 60 Random Glucose 155 H (60-115) mg/dL Lactic Acid 1.0 (0.5-2.0) mmol/L Calcium 9.2 (8.4-10.2) mg/dL Total Bilirubin 0.3 (0.0-1.0) mg/dL AST 14 (5-37) U/L ALT 15 (0-40) U/L Alkaline Phosphatase 121 H (39-117) U/L Troponin I High Sens < 2.7 (<3.5-35.0) ng/L Total Protein 7.5 (6.5-8.0) g/dL Albumin 4.2 (3.5-5.0) g/dL Independent Interpretation I performed an independent interpretation of an: Plain X-Ray and CT Scan Radiology Impression Discussion of test interpretation with radiology: I have reviewed the radiologist's reading. Discharge Plan Discharge Clinical Impression: Avulsion fracture Patient Disposition: Home, Self-Care Additional Instructions: Your CT imaging shows avulsion fracture of the clavicle and 1st rib consistent with the ligament of costoclavicular. Take ibuprofen 400mg every 8 hours. Tylenol 1000 mg every 8 hours. Take oxycodone as needed for pain. Avoid driving or operating heavy machinery. Use the lidocaine patch as well for pain control. Prescriptions: New lidocaine 5 % adhesive patch,medicated 1 patch topical DAILY Qty: 10 0RF Rx Instructions: leave on most painful area for up to 12 hrs acetaminophen [Tylenol Extra Strength] 500 mg tablet 1,000 mg PO Q8H 14 Days Qty: 84 0RF oxycodone 5 mg capsule 5 mg PO Q8H PRN (Reason: pain) 4 Days Qty: 12 0RF Rx Instructions: Partial Fill upon patient request. ibuprofen 400 mg tablet 400 mg PO Q8H 14 Days Qty: 42 0RF No Action cyanocobalamin (vitamin B-12) 1,000 mcg tablet 1 tab PO DAILY cholecalciferol (vitamin D3) [Vitamin D3] 50 mcg (2,000 unit) capsule 1 cap PO DAILY Asmanex HFA 200 mcg/actuation HFA aerosol inhaler 1 puff INHALATION BID sertraline 50 mg Tablet 150 mg PO DAILY Qty: 30 0RF Dakin's Solution 0.125 % Solution 1 appl topical DAILY Qty: 473 0RF insulin lispro [Admelog U-100 Insulin lispro] 100 unit/mL Solution See Protocol subcut QIDACHS Qty: 10 0RF Protocol: Insulin Correction Scale Less than or equal to 110 ---- Give (units): 0 111 to 150 Give (units): 0 151 to 200 Give (units): 2 201 to 250 Give (units): 10 251 to 300 Give (units): 12 301 to 350 Give (units): 14 Greater than 350 Give (units): 16 Call MD if Blood Glucose > : 350 Rx Instructions: BG <111 0 units, 111-150 - 0 units, 151-200 2 units, 201-250 4 units, 251-300 6 units, 301-350 8 units, >350 10 units tramadol 50 mg tablet 50 mg PO Q8H PRN (Reason: pain) Qty: 30 0RF Rx Instructions: ok to take 1-2 tabs every 8 hours as needed clonazepam 0.5 mg tablet 0.5 mg PO TID Zepbound 7.5 mg/0.5 mL pen injector subcut QWEEK ropinirole 1 mg tablet 2 mg PO BEDTIME Rx Instructions: administer 1-3 hours before bedtime (DME) FreeStyle Precision Neal Strips Strip See Rx Instructions .ROUTE QID Qty: 10 Rx Instructions: As directed gabapentin 300 mg capsule 300 mg PO BID mirtazapine 45 mg tablet 45 mg PO BEDTIME alcohol swabs [Alcohol Prep Pads] Pads, Medicated topical BID (DME) pen needle, diabetic [Easy Touch] 31 gauge x 1/4 needle See Rx Instructions .ROUTE .MEDSUPPLY Qty: 100 Rx Instructions: As directed insulin glargine [Lantus Solostar U-100 Insulin] 100 unit/mL (3 mL) insulin pen 20 unit subcut BID (DME) FreeStyle Get 3 Plus Sensor Device See Rx Instructions .ROUTE DIRECTED Qty: 1 Rx Instructions: As directed (DME) lancets [TRUEplus Lancets] 33 gauge misc See Rx Instructions .ROUTE BID Qty: 100 Rx Instructions: As directed omeprazole 20 mg capsule,delayed release(DR/EC) 20 mg PO DAILY ferrous gluconate 324 mg (38 mg iron) tablet 324 mg PO 3XW Interventions: ED Discharge Assessment Last Done: 10/12/24 20:33 Discharge Date/Time: 10/12/24 20:34 Print Language: Indonesian
[2024-10-12 15:20] LABS: Hematocrit 40.1 % (42.0-52.0); Hemoglobin 13.9 g/dl (14.0-18.0); Imm Gran Abs Auto 0.06 X10*3/uL (0.00-0.03); Imm Gran Pct Auto 0.4 % (0.0-0.4); Lymphocytes Absolute Auto 2.5 X10*3/uL (1.2-4.9); MANUAL DIFF FLAG NO; Mean Corpuscular HGB Conc 34.7 g/dl (31.0-36.0); Mean Corpuscular Hemoglobin 28.4 pg (27.0-33.0); Mean Corpuscular Volume 81.8 fL (80.0-98.0); NRBC Abs Auto 0.000 X10*3/uL (0.0-0.012); NRBC Pct Auto 0.0 /100WBC (0.0-0.2); Platelet Count 256 X10*3/uL (160-400); Red Blood Count 4.90 X10*6/uL (4.60-5.80); White Blood Count 14.0 X10*3/uL (4.8-10.8)
[2024-10-12 15:27] LABS: INTERNATIONAL NORM RATIO 1.0 (0.9-1.1); Prothrombin Time 11.3 SEC (10.9-12.4)
[2024-10-12 15:29] LABS: Partial Thromboplastin Time 27.9 SEC (26.7-34.1)
[2024-10-12 15:37] LABS: Alanine Aminotransferase 15 U/L (0-40); Albumin Level 4.2 g/dL (3.5-5.0); Alkaline Phosphatase 121 U/L (39-117); Anion Gap 15 (12-20); Aspartate Amino Transferase 14 U/L (5-37); Blood Urea Nitrogen 15 mg/dL (9-16); Calcium 9.2 mg/dL (8.4-10.2); Carbon Dioxide 22 mmol/L (22-29); Chloride 104 mmol/L (96-108); Creatinine Clr Calc Pharmacy 209.5; Estimated Glomerular Filt Rate > 60; Potassium 4.1 mmol/L (3.3-5.1); Sodium 137 mmol/L (135-145); Total Protein 7.5 g/dL (6.5-8.0)
[2024-10-12 15:45] LABS: Troponin-I High Sensitivity < 2.7 ng/L (<3.5-35.0)
--- OUTSIDE RECORDS SUMMARY | 2024-10-12 16:20 | XMS_ITS | Encounter Summary ---
Author Organization [employer] Address [address] [place] [address] Care Team Providers Care Hand Braille Transcriber Name Role Phone Lois Gaming NP Primary Care Provider [phone] Reason for Visit * Reason Onset Date Comments Prior Authorization 02/15/2024 Encounter Details Date Type Department Care Team ([facility] st Contact Info) Description 02/15/2024 Telephone [facility] MEDICINE [address] [place], [place] [phone] Lois Gaming NP [address] [place], [place] [phone] Prior Authorization Social History Tobacco Use Types [...] to pcp for review and signature via [email or web address]. * Telephone Encounter - Mile Chairez - 02/18/2024 9:20 AM EST Tc from pt requesting a PA for medication (Tramadol) as he been calling since last week. * Telephone Encounter - Washington Sloorzano - 02/15/2024 1:06 PM EST Tc from pt stating Tramadol needs a medication refill. Please contact pt at [phone]. (Algerian Speaker) documented in this encounter Plan of Treatment Upcoming Encounters Date Type Department Care Team (Late st Contact Info) Description 10/15/2024 9:00 AM EDT Clinical Support [facility] [address] [place] [address] Deborah Logan, RN documented as of this encounter Visit Diagnoses Not on filedocumented in this encounter Additional Health Concerns Assessment Noted Time PHQ-9 Depression Total Score: 23 024 3:28 PM EST documented as of this encounter Care Teams Hand Braille Transcriber Relationship Specialty Start Date End Date Lois Gaming NP [address] [place] [address] PCP - General Family Medicine 10/05/23 [facility] [place] 11/11/23 documented as of this encounter
--- OUTSIDE RECORDS SUMMARY | 2024-10-12 16:20 | XMS_ITS | Encounter Summary ---
Author Organization [employer] Address [address] [place] [address] Care Team Providers Care Outcome Analyst Name Role Phone Lois Gaming NP Primary Care Provider [phone] Reason for Visit * Reason Comments Med Refill Encounter Details Date Type Department Care Team ([facility] st Contact Info) Description 02/18/2024 Refill [facility] [address] [place], [place] [phone] Lois Gaming NP [address] [place], [place] [phone] Encounter for management of wound VAC Social [...] Description 10/15/2024 9:00 AM EDT Clinical Support [facility] [address] [place] [address] Deborah Logan RN documented as of this encounter Visit Diagnoses Diagnosis Encounter for management of wound VAC documented in this encounter Additional Health Concerns Assessment Noted Time PHQ-9 Depression Total Score: 23 024 3:28 PM EST documented as of this encounter Care Teams Outcome Analyst Relationship Specialty Start Date End Date Lois Gaming NP [address] [place] [address] PCP - General Family Medicine 10/05/23 [facility] 11/11/23 documented as of this encounter
--- OUTSIDE RECORDS SUMMARY | 2024-10-12 16:20 | XMS_ITS | Encounter Summary ---
Author Organization [employer] Address [address] 7[address] [place] [address] Care Team Providers Care Chain Person Name Role Phone CarmellaKristi sahu INTERNAL AFFAIRS COMMANDER Primary Care Provider [phone] Lois Gaming NP Primary Care Provider [phone] Reason for Visit * Reason Comments Med Refill Encounter Details Date Type Department Care Team ([facility] st Contact Info) Description 03/06/2023 Refill [facility] MED[facility]INE [address] [place], [place] [phone] Dillon Alcantara AGNP Social History Tobacco Use [...] Description 10/15/2024 9:00 AM EDT Clinical Support [facility] MED[facility]INE [address] [place] [address] Deborah Logan RN documented as of this encounter Visit Diagnoses Not on filedocumented in this encounter Additional Health Concerns Assessment Noted Time PHQ-9 Depression Total Score: 22 024 10:32 AM EST documented as of this encounter Care Teams Chain Person Relationship Specialty Start Date End Date Kristi Bae FNP [address] [place] [address] PCP - General Family Medicine 10/16/22 10/04/23 Lois Gaming NP [address] [place] [address] PCP - General Family Medicine 10/05/23 [facility] 11/11/23 documented as of this encounter
--- OUTSIDE RECORDS SUMMARY | 2024-10-12 16:20 | XMS_ITS | Clinical Summary ---
Author Organization [employer] Address [address] [facility] 7[address] [place] [address] Care Team Providers Care Digital Content Specialist Name Role Phone Lois Gaming SHANNA Primary Care Provider [phone] Allergies No known active allergies Medications mirtazapine (Remeron) 45 MG tablet Take 45 mg by mouth at bedtime. Active rOPINIRole (Requip) 1 MG tablet Take [...] edema, without long-term current use of insulin ([facility]) Inject 1 each under the skin 2 [...] 2 diabetes mellitus without complication, unspecified whether alf insulin use ([facility]) USE TO TEST TWICE DAILY 100 each 5 024 Active FreeStyle lancetsIndications :Type 2 diabetes mellitus without complication, unspecified whether karate instructor insulin use ([facility]) 1 each by Other route 2 times daily. 100 each 11 024 Active cholecalciferol VITAMIN D (Vitamin D-3) 50 MCG (1999) capsuleIndications :Low vitamin D level TAKE 1 CAPSULE BY MOUTH EVERY DAY 90 capsule 1 Active Continuous Glucose Manager Transition (FreeStyle Get 3 Freeport) deviceIndications: Type 2 diabetes mellitus treated with insulin ([facility]) 1 each Once per day. Use as directed for CGM 1 each Active Continuous Glucose Sensor (FreeStyle Get 3 Plus Sensor) miscIndications:Ty pe 2 diabetes mellitus treated with insulin ([facility]) 1 each every 15 days. Apply 1 every 15 days as directed for CGM 2 each Active glucose blood (FreeStyle Precision Neal Test) test stripIndications:T ype 2 diabetes mellitus treated with insulin ([facility]) Use to test blood sugar 4 times [...] edema, without long-term current use of insulin ([facility]),Type 2 diabetes mellitus treated with insulin ([facility]) 1 Pad 6 (six) times a day. [...] 2 diabetes mellitus without complication, unspecified whether alf insulin use (CMS/HCC) USE 1 SWAB BY [...] edema, without long-term current use of insulin ([facility]) Inject 0.5 mL (7.5 mg) under the skin 1 (one) time per week for 28 days. 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 Christiano AVELAR et al. ABBY. 2013;310(00): 8651-9706 (http://education.[employer]/faq/MZB162) Chol/HDLC Ratio <5.0 (calc) 3.4 3.3 3.0 [...] on mounjaro, improved glucose control Referral to insert molding operator Follow up in 3 months sooner prn [...] Department Care Team Description 10/08/2024 Patient Outreach [facility] MEDICINE [address] [place] [address] Lois Gaming NP Care Coordination (C3 CM-W Deepika Pelletier outreach pt 1) 10/08/[address] [facility] MEDICINE [address] [place] [address] Lois Gaming NP PT-1 10/08/2024 Travel 10/07/2024 Telephone [facility] MED & PEDS [address] [place] [address] Lois Gaming NP Prior Authorization 10/07/2024 Refill [facility] MED & PEDS [address] [place] [address] Lois Gaming NP Type 2 diabetes 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, without long-term current use of insulin ([facility]) 09/26/2024 2:30 PM EDT Office Visit [facility] MEDICINE [address] [place] [address] Lois Gaming NP Morbid obesity ([facility]) (Primary Dx); Type 2 diabetes 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, without long-term current use of insulin ([facility]); Numbness of upper extremity; Other iron deficiency anemia; Obstructive sleep apnea syndrome; Chronic low back pain, unspecified back pain laterality, unspecified whether sciatica present 09/25/[address] [facility] MEDICINE [address] [place] [address] Lois Gaming NP Chart Prep 09/22/[address] [facility] MED & PEDS [address] [place] [address] Lois Gaming NP Numbness of upper extremity 09/19/2024 Travel 09/08/[address] [facility] MEDICINE [address] [place] [address] Lois Gaming NP Type 2 diabetes 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, without long-term current use of insulin ([facility]) 09/07/[address] [facility] MEDICINE [address] [place] [address] Kadie Villalpando MD 09/01/[address] [facility] MEDICINE [address] [place] [address] Lois Gaming NP Chronic low back pain, unspecified back pain laterality, unspecified whether sciatica present 08/29/[address] [facility] MEDICINE [address] [place] [address] Lois Gaming NP Intertrigo 08/27/2024 2:00 PM EDT Office Visit [facility] OPTOMETRY [address] [place] [address] Rich, Anitha, OD Diabetes type 2, no ocular involvement (CMS/[facility]) (Primary Dx); White without pressure of peripheral retina of both eyes; Presbyopia 08/27/2024 Travel 08/26/[address] [facility] MEDICINE [address] [place] [phone] Lois Gaming NP 08/26/2024 Refill [facility] MED & PEDS [address] [place] [address] Lois Gaming NP Type 2 diabetes mellitus without complication, unspecified whether alf insulin use (CMS/[facility]) 08/22/[address] [address] Lois Gaming NP [address] [address] Lois Gaming NP Low vitamin D level 08/14/2024 Patient Outreach [address] [address] Lois Gaming NP Care Coordination (CHW outreach for SDOH PT-1 and food needs-referral completed /) 08/14/[address] [address] Lois Gaming NP PT1 08/11/[address] [address] Lois Gaming NP Medication Question 08/07/[address] [address] Lois Gaming NP 08/01/[address] [address] Lois Gaming NP Prior Authorization 08/01/[address] [address] Lois Gaming NP Medication Question 08/01/[address] [facility] MEDICINE [address] [place] [phone] Lois Gaming NP 08/01/[address] [address] Lois Gaming NP Chronic low back pain, unspecified back pain laterality, unspecified whether sciatica present 07/30/[address] [facility] MEDICINE [address] [place] [address] Lois Gaming NP Call Back Request 07/25/2024 3:30 PM EDT Office Visit [address] [address] Lois Gaming NP Class 3 severe obesity due to excess calories with body mass index (BMI) of 50.0 to 59.9 in adult (Primary Dx); Type 2 diabetes 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, without long-term current use of insulin ([facility]); Left hand pain; Chronic low back pain, unspecified back pain laterality, unspecified whether sciatica present; Sleep apnea, unspecified type; Intertrigo 07/25/2024 Travel 07/23/[address] [address] Falguni Luo [place] Chart prep 07/17/2024 9:00 AM EDT Clinical Support [address] [address] Deborah Logan, BAM 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 (Primary Dx) 07/17/[address] [address] Deborah Logan, RN BPI updated 07/17/2024 Travel 07/16/[address] [address] Lois Gaming NP Mild persistent asthma without complication from Last 3 Months Immunizations Immunization Administration Dates Next Due Hep B, adult 07/30/2020,03/03/2020,02/02/2020 Influenza Injectable Quadriv alant Preservative Free IIV4 MDCK 12/20/2022 Influenza injectable quadriv alent IIV4 with preservative 11/02/2017,12/22/2015 Influenza injectable quadriv alent preservative free 10/24/2021,10/28/2019,11/11/2018 Influenza, IIV3, injectable 01/05/2022,12/07/201 5 Influenza, seasonal, injecta ble, preservative free 02/11/2024,01/10/2017 Pfizer Covid-19 Vaccine 12+ 02/11/2024, Pneumococcal Conjugate PCV 20 03/02/2023 Pneumococcal Polysaccharide [...] Description 10/15/2024 9:00 AM EDT Clinical Support [address] [address] Deborah Logan, RN Health Maintenance Due Date [...] Screening 12/20/2024 12/21/2023 Lipid Panel 01/20/2025 01/21/2024, 02/0 08/2023, 03/20/2022, Additional history exists SDOH Screening 02/10/2025 02/11/2024 Eye Exam 08/27/2025 08/27/2024, 0704/2024, 08/27/2024, Additional history exists Tobacco Screening 09/26/2025 [...] edema, without long-term current use of insulin ([facility]) POCT GLUCOSE Routine 07/25/2024 3:25 PM EDT Type 2 diabetes 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, without long-term current use of insulin (CMS/HCC) POCT KIMMY-14 URINE DRUG SCREEN Routine 07/17/2024 9:29 AM EDT 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 Glucose Blood, POC 193 60 - 200 mg/dL QC Media Lot # [id number] Lot# Expiration Date Blood Capillary blood specimen / Unknown 09/26/2024 2:47 PM EDT Lois Gaming NP POINT OF CARE TEST ENTER/EDIT OR DERABLES Final Result * POCT KIMMY-14 Urine Drug Screen (07/17/2024 9:29 AM EDT) THC Positive Cocaine Screen, Urine Negative Opiate [...] - 07/17/2024 9:29 AM EDT UTOX cup Lot#[id number] Exp. 12/05/25 Internal Pass Control Lois Gaming NP POINT OF CARE TEST ENTER/EDIT OR DERABLES Final Result * TSH W/Reflex to FT4 (07/17/2024 8:49 AM EDT) TSH reflex Free T4 2.40 0.32 - 4.0 uIU/mL [facility] Blood Venous blood specimen / Unknown 07/17/2024 8:49 AM EDT 07/17/2024 11:10 AM EDT Lois Graef STAGE MANAGER LAB BLOOD ORDERABLES Final Resul t [facility] [address] [place], [place] [phone] * (ABNORMAL) CBC auto differential (07/17/2024 8:49 AM EDT) White Blood Count 10.3 4.8 - 10.8 X10*3/uL [facility] Red Blood Count 4.79 4.60 - 5.80 X10*6/uL [facility] Hemoglobin 13.3(L) 14.0 - 18.0 g/dl [facility] Hematocrit 41.1(L) 42.0 - 52.0 % [facility] Mean Corpuscular Volume 85.8 80.0 - 98.0 fL [facility] Mean Corpuscular Hemoglobin 27.8 27.0 - 33.0 pg [facility] Mean Corpuscular HGB Conc 32.4 31.0 - 36.0 g/dl [facility] Red Cell Distribution Width 14.9 11.0 - 16.0 % [facility] Platelet Count 295 160 - 400 X10*3/uL [facility] Mean Platelet Volume 9.3(L) 9.4 - 12.4 fL [facility] Neutrophils Percent Auto 70.7 45 - 73 % [facility] Imm Gran Pct Auto 0.4 0.0 - 0.4 % [facility] Lymphocytes Percent Auto 22.1 20 - 40 % [facility] Monocytes Percent Auto 5.3 2 - 11 % [facility] Eosinophils Percent Auto 1.1 0 - 4 % [facility] Basophils Percent Auto 0.4 0 - 2 % [facility] NRBC Pct Auto 0.0 0.0 - 0.2 /100WBC [facility] Neutrophils Absolute Auto 7.3 2.0 - 8.3 x10*3/uL [facility] Imm Gran Abs Auto 0.04(H) 0.00 - 0.03 X10*3/uL [facility] Lymphocytes Absolute Auto 2.3 1.2 - 4.9 X10*3/uL [facility] Monocytes Absolute Auto 0.6 0.1 - 1.2 X10*3/uL [facility] Eosinophils Absolute Auto 0.1 0.0 - 0.4 X10*3/uL [facility] Basophils Absolute Auto 0.0 0.0 - 0.2 X10*3/uL [facility] NRBC Abs Auto 0.000 0.0 - 0.012 X10*3/uL [facility] Blood Venous blood specimen / Unknown 07/17/2024 8:49 AM EDT 07/17/2024 11:10 AM EDT us Lois Gaming STAGE MANAGER LAB BLOOD ORDERABLES Final Resul t Performing Organization Address [facility] de Phone Number [facility] [address] [place] [phone] * (ABNORMAL) Hemoglobin A1c (07/17/2024 8:49 AM EDT) Hemoglobin A1c 7.7(H) <6.0 % [facility] Comment:Hemoglobin A1C Refer ence Range Adults: 4.8 - 6.0 % Non diabetic: < 6.0 % Goal: < 7.0 %Additional Action Suggested: > 8.0 %Note: Hemoglobin A1c results are invalid for patients with abnormal amounts of HbF. Blood transfusions may impact the HbA1c concentration in the patient sample. Estimated Average Glucose 174 mg/dL [facility] Comment:eAG = Estimated ave rage glucose which is %A1C expressed asaverage glucose, using the formula of the [id number] Glucose study (ADAG), Diabetes Care, Vol.31,#8,2007 Blood Venous blood specimen / Unknown 07/17/2024 8:49 AM EDT 07/17/2024 11:10 AM EDT us Lois Gaming STAGE MANAGER LAB BLOOD ORDERABLES Final Resul t Performing Organization Address [facility] Co de Phone Number [facility] [address] [place] [phone] * (ABNORMAL) Comprehensive Metabolic Panel (07/17/2024 8:49 AM EDT) Pathologist [facility] Sodium 137 135 - 145 mmol/L [facility] Potassium 3.9 3.3 - 5.1 mmol/L [facility] Chloride 103 96 - 108 mmol/L [facility] Carbon Dioxide 25 22 - 29 mmol/L [facility] Anion Gap 13 12 - 20 [facility] Urea Nitrogen (BUN) 17(H) 9 - 16 mg/dL [facility] Creatinine, Serum 0.79 0.5 - 1.4 mg/dL [facility] Estimated Glomerular Filt Rate >60 [facility] Comment:Chronic Kidney Disea se: Estimated GFR < 60 mL/min/1.83u9Sbxehx Kidney Disease: Estimated GFR < 15 mL/min/1.73m2 Glucose 248(H) 60 - 115 mg/dL [facility] Calcium 8.8 8.4 - 10.2 mg/dL [facility] Bilirubin, Total 0.2 0.0 - 1.0 mg/dL [facility] Aspartate Amino Transferase 18 5 - 37 U/L [facility] Alanine Aminotransferase 15 0 - 40 U/L [facility] Total Protein 7.0 6.5 - 8.0 g/dL [facility] Albumin Level 4.0 3.5 - 5.0 g/dL [facility] Alkaline Phosphatase 118(H) 39 - 117 U/L [facility] Blood Venous blood specimen / Unknown 07/17/2024 8:49 AM EDT 07/17/2024 11:10 AM EDT us Lois Gaming NP LAB BLOOD ORDERABLES Final Resul t [facility] [address] [place] [phone] * Lipid Panel, Standard (01/21/2024 8:37 AM EST) Pathologist [facility] Triglycerides 144 <150 mg/dL [facility] Comment:Desirable Triglyceri de: less than 150 mg/dLBorderline High Triglyceride 150-199 mg/dLHigh Triglyceride: 200-499 mg/dLVery High Triglyceride: greater than or equal to 5OO mg/dL Cholesterol 149 <200 mg/dL [facility] Comment:Desirable Cholestero l: less than 200 mg/dLBorderline High Cholesterol: 200-239 mg/dLHigh Cholesterol: greater than 239 mg/dL LDL Cholesterol Calculated 61 <100 mg/dL [facility] Comment:Desirable LDL: less than 100 mg/dLNear Optimal/Above Optimal LDL: 110- 129 mg/dLBorderline High LDL: 130-159 mg/dLHigh LDL: 160-189 mg/dLVery High LDL: greater than or equal to 190 mg/dL HDL Cholesterol 60 >40 mg/dL [facility] Comment:Desirable HDL: great er than 40 mg/dL Note: This HDL assay may give artificially low results in patients with liver disease. Blood Venous blood specimen / Unknown 01/21/2024 8:37 AM EST 01/21/2024 12:12 PM EST us Lois Gaming NP LAB BLOOD ORDERABLES Final Resul t [facility] [address] [place] [phone] * HIV-1 RNA, Quantitative, Real-Time PCR with Reflex to Genotype (RTI, PI, Integrase) (03/20/2022 8:20 AM EST) HIV 1 RNA, QN PCR NOT DETECTED copies/mL [facility], HIV 1 RNA, QN PCR NOT DETECTED Log copies/mL [facility], Comment: REFERENCE RANGE: NOT DETECTED copies/mL NOT DETECTED Log copies/mL This test was performed using Real-Time Polymerase Chain Reaction. Reportable range is 20 to 10,000,000 copies/mL (1.30-7.00 Log copies/mL). 03/20/2022 8:20 AM EST 03/20/2022 8:21 AM EST Narrative [facility] - 03/23/2022 8:05 PM EST FASTING:YES FASTING: YES Dillon Alcantara [facility] LAB BLOOD ORDERABLES Final Res ult Performing Organization Address [facility]/ZIP Co de Phone Number [facility] [address] [place] [address], [place] [address] [employer]/[facility], [address] [place] [address] * Hepatitis C Antibody with Reflex to HCV, RNA, Quantitative, Real-Time PCR (03/20/2022 8:20 AM EST) Hepatitis C Antibody NON-REACT TAY NON-REACT TAY [facility] Index 0.04 <1.00 [facility] Comment: HCV antibody was non-reactive. There is no laboratory evidence of HCV infection. In most cases, no further action is required. However, if recent HCV exposure is suspected, a test for HCV RNA (test code 16964) is suggested. For additional information please refer to http://education.[employer]/faq/RRK92b2 (This link is being provided for informational/ educational purposes only.) 03/20/2022 8:20 AM EST 03/20/2022 8:21 AM EST Narrative [facility] - 03/23/2022 8:05 PM EST FASTING:YES FASTING: YES Dillon Alcantara [facility] LAB BLOOD ORDERABLES Final Res ult Performing Organization Address City/[facility]/ZIP Co de Phone Number [facility] [address], [place] [address] [employer] [place] [employer] [address] [facility], ([address]) [place] [address] * Hm Colonoscopy (03/14/2022) Colonoscopy Normal Normal Historical Provider HEALTH MAINTENANCE Final Result * [...] [facility] 01/26/2021 8:20 AM EST us Shannen Jefferson MD LAB URINE ORDERABLES Final R esult [facility] [address] from Last 3 Months or Most Recently Relevant to Health Maintenance Insurance [facility] C3 Care Teams Digital Content Specialist Relationship Specialty Start Date End Date Lois Gaming NP [address] [place] [address] PCP - General Family Medicine 10/05/23 [facility] 11/11/23
--- OUTSIDE RECORDS SUMMARY | 2024-10-12 16:20 | XMS_ITS | Encounter Summary ---
Author Organization [employer] Address [address] [facility] 7t [place] [address] Care Team Providers Care Chief Executive Officer Name Role Phone Lois Gaming NP Primary Care Provider [phone] Reason for Visit * Reason Onset Date Comments PT1 08/14/2024 Encounter Details Date Type Department Care Team ([facility] st Contact Info) Description 08/14/2024 Telephone [facility] MEDICINE [address] [place], [place] [phone] Lois Gaming NP [address] [place] [address] PT1 Social History Tobacco Use Types Packs/Day [...] Y/N: Yes Provider name or facility name: [facility] [address] [facility] [address] Escort needed: Y/N: No Do you have a wheelchair: Y/N: No If yes- Manual or electric: n/a Visits: 4 x monthly Appt Day: 09/22/24 10:30am documented in this encounter Plan of Treatment Upcoming Encounters Date Type Department Care Team (Late st Contact Info) Description 10/15/2024 9:00 AM EDT Clinical Support [facility] MEDICINE [address] [place] [address] Deborah Logan RN documented as of this encounter Visit Diagnoses Not on filedocumented in this encounter Additional Health Concerns Assessment Noted Time PHQ-9 Depression Total Score: 24 025 10:48 AM EST documented as of this encounter Care Teams Chief Executive Officer Relationship Specialty Start Date End Date Lois Gaming NP [address] [place] [address] PCP - General Family Medicine 10/05/23 [facility] 11/11/23 documented as of this encounter
--- OUTSIDE RECORDS SUMMARY | 2024-10-12 16:20 | XMS_ITS | Encounter Summary ---
Author Organization [employer] Address [address] 7[address] [place] [address] Care Team Providers Care Lay Out Carpenter Name Role Phone Lois Gaming NP Primary Care Provider [phone] Reason for Visit * Reason Onset Date Comments Prior Authorization 10/07/2024 Encounter Details Date Type Department Care Team ([facility] st Contact Info) Description 10/07/2024 Telephone [facility] MED & PEDS [address] [place] [address] Lois Gaming NP [address] [place] [address] Prior Authorization Social History Tobacco Use Types [...] Description 10/15/2024 9:00 AM EDT Clinical Support [facility] MEDICINE [address] [place] [address] Deborah Logan RN documented as of this encounter Visit Diagnoses Not on filedocumented in this encounter Additional Health Concerns Assessment Noted Time PHQ-9 Depression Total Score: 24 025 10:48 AM EST documented as of this encounter Care Teams Lay Out Carpenter Relationship Specialty Start Date End Date Lois Gaming NP [address] [place] [address] PCP - General Family Medicine 10/05/23 [facility] 11/11/23 documented as of this encounter
--- OUTSIDE RECORDS SUMMARY | 2024-10-12 16:20 | XMS_ITS | Encounter Summary ---
Author Organization [employer] Address [address] [facility] [address] 7t [place] [address] Care Team Providers Care Phone Representative Name Role Phone CarmellaKristi sahu INDUSTRIAL TECHNOLOGY EDUCATION TEACHER Primary Care Provider [phone] Lois Gaming NP Primary Care Provider [phone] Reason for Visit * Reason Comments Med Refill Encounter Details Date Type Department Care Team ([facility] st Contact Info) Description 01/22/[address] [facility] MEDICINE [address] [place], [place] [phone] Dillon Alcantara AGNP Social History Tobacco Use [...] AM EDT Clinical Support [facility] MEDICINE [address] [place] [address] Deborah Logan RN documented as of this encounter Visit Diagnoses Not on filedocumented in this encounter Additional Health Concerns Assessment Noted Time PHQ-9 Depression Total Score: 17 023 9:10 AM EST documented as of this encounter Care Teams Phone Representative Relationship Specialty Start Date End Date Kristi Bae FNP 230 [place] [address] PCP - General Family Medicine 10/16/22 10/04/23 Lois Gaming NP 230 [place] [address] PCP - General Family Medicine 10/05/23 [facility] 11/11/23 documented as of this encounter
--- OUTSIDE RECORDS SUMMARY | 2024-10-12 16:20 | XMS_ITS | Encounter Summary ---
Author Organization [employer] Address 75 [facility] 7t [place] [address] Care Team Providers Care Therapy Aide Name Role Phone Kristi Bae Primary Care Provider [phone] Lois Gaming NP Primary Care Provider [phone] Reason for Visit * Reason Comments Med Refill Encounter Details Date Type Department Care Team ([facility] st Contact Info) Description 11/14/2022 Refill [facility] MEDICINE 230 [place], [place] [phone] Kristi Bae FNP 230 [place] [address] Chronic low back pain, unspecified back pain [...] Description 10/15/2024 9:00 AM EDT Clinical Support [facility] MEDICINE [address] [place] [address] Deborah Logan RN documented as of this encounter Visit Diagnoses Diagnosis Chronic low back pain, unspecified back pain laterality, unspecified whether sciatica present documented in this encounter Additional Health Concerns Assessment Noted Time PHQ-9 Depression Total Score: 17 023 9:10 AM EST documented as of this encounter Care Teams Therapy Aide Relationship Specialty Start Date End Date Kristi Bae FNP [address] [place] [address] PCP - General Family Medicine 10/16/22 10/04/23 Lois Gaming NP [address] [place] [address] PCP - General Family Medicine 10/05/23 [facility] 11/11/23 documented as of this encounter
--- OUTSIDE RECORDS SUMMARY | 2024-10-12 16:20 | XMS_ITS | Encounter Summary ---
Author Organization [employer] Address 75 [facility] 7t [place] [address] Care Team Providers Care Cornice Maker Name Role Phone Kristi Bae Primary Care Provider [phone] Lois Gaming NP Primary Care Provider [phone] Reason for Visit * Reason Comments Med Refill Encounter Details Date Type Department Care Team ([facility] st Contact Info) Description 11/14/2022 Refill [facility] MEDICINE 230 [place], [place] [phone] Kristi Bae FNP 230 [place] [address] Chronic low back pain, unspecified back pain [...] Description 10/15/2024 9:00 AM EDT Clinical Support [facility] MEDICINE [address] [place] [address] Deborah Logan RN documented as of this encounter Visit Diagnoses Diagnosis Chronic low back pain, unspecified back pain laterality, unspecified whether sciatica present documented in this encounter Additional Health Concerns Assessment Noted Time PHQ-9 Depression Total Score: 17 023 9:10 AM EST documented as of this encounter Care Teams Cornice Maker Relationship Specialty Start Date End Date Kristi Bae FNP [address] [place] [address] PCP - General Family Medicine 10/16/22 10/04/23 Lois Gaming NP [address] [place] [address] PCP - General Family Medicine 10/05/23 [facility] 11/11/23 documented as of this encounter
--- OUTSIDE RECORDS SUMMARY | 2024-10-12 16:20 | XMS_ITS | Encounter Summary ---
Author Organization [employer] Address [address] [facility] [address] 7t [place] [address] Care Team Providers Care Latent Print Examiner Name Role Phone Kristi BaeP Primary Care Provider [phone] Lois Gaming NP Primary Care Provider [phone] Reason for Visit * Reason Onset Date Comments PT1 12/18/2022 Encounter Details Date Type Department Care Team ([facility] st Contact Info) Description 12/18/2022 Telephone [facility] MEDICINE 230 [place], [place] [phone] Kristi Bae FNP 230 [place] [address] PT1 Social History Tobacco Use Types Packs/Day [...] 12/19/2022 10:12 AM EST PT-1 Request Number [id number] is Pending * Telephone Encounter - Batsheva Huffman - 12/18/2022 8:22 AM EST PT1 Name of facility: [facility] Specialty: Future Appt's Location: [address] [place] [address] Date: N/a Time: n/a fax: [phone] wheelchair: No Film Splicer: No All future visits within the Clinic. Phone number and Address Verified. documented in this encounter Plan of Treatment Upcoming Encounters Date Type Department Care Team (Late st Contact Info) Description 10/15/2024 9:00 AM EDT Clinical Support [facility] MEDICINE 230 [place] [address] Deborah Logan RN documented as of this encounter Visit Diagnoses Not on filedocumented in this encounter Additional Health Concerns Assessment Noted Time PHQ-9 Depression Total Score: 17 023 9:10 AM EST documented as of this encounter Care Teams Latent Print Examiner Relationship Specialty Start Date End Date Kristi Bae FNP 230 [place] [address] PCP - General Family Medicine 10/16/22 10/04/23 Lois Gaming NP [address] [place] [address] PCP - General Family Medicine 10/05/23 [facility] 11/11/23 documented as of this encounter
--- OUTSIDE RECORDS SUMMARY | 2024-10-12 16:20 | XMS_ITS | Encounter Summary ---
Author Organization [employer] Address [address] [facility] [address] 7t [place] [address] Care Team Providers Care Stunt Double Name Role Phone Lois Gaming SHANNA Primary Care Provider [phone] Reason for Visit * Reason Comments Med Refill Encounter Details Date Type Department Care Team ([facility] st Contact Info) Description 09/07/2024 Refill [facility] MEDICINE 230 [place], [place] [phone] Kadie Villalpando MD 230 [place], [place] [phone] Social History Tobacco Use Types Packs/Day Years [...] Clinical Support [facility] MEDICINE 230 [place] [address] Deborah Logan RN documented as of this encounter Visit Diagnoses Not on filedocumented in this encounter Additional Health Concerns Assessment Noted Time PHQ-9 Depression Total Score: 24 025 10:48 AM EST documented as of this encounter Care Teams Stunt Double Relationship Specialty Start Date End Date Lois Gaming NP 230 [place] [address] PCP - General Family Medicine 10/05/23 [facility] 11/11/23 documented as of this encounter
--- OUTSIDE RECORDS SUMMARY | 2024-10-12 16:20 | XMS_ITS | Encounter Summary ---
Author Organization [employer] Address 75 [facility] 7t [place] [address] Care Team Providers Care Electronic Engraver Name Role Phone Lois Gaming NP Primary Care Provider [phone] Reason for Visit * Reason Comments Care Coordination [facility] Encounter Details Date Type Department Care Team (Latest Contact Info) Description 10/08/2024 Patient Outreach [facility] MEDICINE 230 [place] [address] Lois Gaming NP 230 [place] [address] Care Coordination (C3 GAIL Dunne outreach pt [...] CHW Deepika dunne submitted PT 1 to [facility] expires on 10/08/2025 documented in this encounter Plan of Treatment Upcoming Encounters Date Type Department Care Team (Late st Contact Info) Description 10/15/2024 9:00 AM EDT Clinical Support [facility] MEDICINE [address] [place] [address] Deborah Lgoan RN documented as of this encounter Visit Diagnoses Not on filedocumented in this encounter Additional Health Concerns Assessment Noted Time PHQ-9 Depression Total Score: 24 025 10:48 AM EST documented as of this encounter Care Teams Electronic Engraver Relationship Specialty Start Date End Date Lois Gaming NP 230 [place] [address] PCP - General Family Medicine 10/05/23 [facility] 11/11/23 documented as of this encounter
--- OUTSIDE RECORDS SUMMARY | 2024-10-12 16:20 | XMS_ITS | Encounter Summary ---
Author Organization [employer] Address 75 [facility] 7t [place] [address] Care Team Providers Care Advertising Coordinator Name Role Phone Dillon Alcantara AGNMarlon Primary Care Provider Unavail able Kristi BaeP Primary Care Provider [phone] Lois Gaming NP Primary Care Provider [phone] Reason for Visit * Reason Onset Date Comments Durable Medical Equipment 06/07/2022 Encounter Details Date Type Department Care Team (Late st Contact Info) Description 06/07/2022 Telephone [facility] MEDICINE 230 [place] [address] Dillon Alcantara AGNP Durable Medical Equipment Social [...] - 06/15/2022 9:07 AM EDT Fyi, had WELFARE SUPERVISOR visit today: States he has been taking [...] 06/07/2022 12:23 PM EDT Tc from Heather case advocate from [facility] requesting a quad cane and shower handle that can be screwed to the wall . Any questions may contact phone # [phone]. documented in this encounter Plan of Treatment Upcoming Encounters Date Type Department Care Team (Late st Contact Info) Description 10/15/2024 9:00 AM EDT Clinical Support [facility] MEDICINE 230 [place] [address] Deborah Logan, BAM documented as of this encounter Visit Diagnoses Not on filedocumented in this encounter Additional Health Concerns Assessment Noted Time PHQ-9 Depression Total Score: 17 023 9:10 AM EST documented as of this encounter Care Teams Advertising Coordinator Relationship Specialty Start Date End Date Dillon Alcantara AGNP PCP - General Family Medicine 01/05/22 10/15/22 Kristi Bae FNP 230 [place] [address] PCP - General Family Medicine 10/16/22 10/04/23 Lois Gaming NP [address] [place] [address] PCP - General Family Medicine 10/05/23 [facility] 11/11/23 documented as of this encounter
--- OUTSIDE RECORDS SUMMARY | 2024-10-12 16:20 | XMS_ITS | Encounter Summary ---
Author Organization [employer] Address 75 [facility] 7t [place] [address] Care Team Providers Care Theoretical Physicist Name Role Phone Kristi Bae Primary Care Provider [phone] Lois Gaming NP Primary Care Provider [phone] Reason for Visit * Reason Onset Date Comments Med Refill 01/22/2023 Encounter Details Date Type Department Care Team ([facility] st Contact Info) Description 01/22/[address] [facility] MEDICINE 230 [place], [place] [phone] rKisti Bae FNP [address] [place] [address] Med Refill Social History Tobacco Use Types Packs/Day Years Used Date Smoking Tobacco: Every Day Cigarettes Smokeless Tobacco: Never Alcohol Use Standard Drinks/Week Comments Never 0 (1 standard drink = 0.6 oz pur e alcohol) Depression Answer Date Recorded Patient Health Questionnaire-9 Score 17 02/15/2022 Housing Stability Answer Date Recorded What is your housing situation today? I have admas gutiérrez 11/22/[address] you [...] solution pen- injector to be sent to [facility] - [place], [place] - [address] [place] [address] documented in this encounter Plan of Treatment Upcoming Encounters Date Type Department Care Team (Late st Contact Info) Description 10/15/2024 9:00 AM EDT Clinical Support [facility] MEDICINE 230 [place] [address] Deborah Logan, RN documented as of this encounter Visit Diagnoses Not on filedocumented in this encounter Additional Health Concerns Assessment Noted Time PHQ-9 Depression Total Score: 17 023 9:10 AM EST documented as of this encounter Care Teams Theoretical Physicist Relationship Specialty Start Date End Date Kristi Bae FNP 230 [place] [address] PCP - General Family Medicine 10/16/22 10/04/23 Lois Gaming NP 230 [place] [address] PCP - General Family Medicine 10/05/23 [facility] 11/11/23 documented as of this encounter
--- OUTSIDE RECORDS SUMMARY | 2024-10-12 16:20 | XMS_ITS | Encounter Summary ---
Author Organization [employer] Address 75 [facility] 7t [place] [address] Care Team Providers Care Smoke Chaser Name Role Phone Lois Gaming NP Primary Care Provider [phone] Reason for Visit * Reason Onset Date Comments Call Back Request 07/30/2024 Encounter Details Date Type Department Care Team ([facility] Contact Info) Description 07/30/2024 Telephone [facility] MEDICINE 230 [place] [address] Lois Gaming NP 230 [place], [place] [phone] Call Back Request Social History Tobacco Use [...] like to clarify. Please contact pt at [phone]. documented in this encounter Plan of Treatment Upcoming Encounters Date Type Department Care Team (Late st Contact Info) Description 10/15/2024 9:00 AM EDT Clinical Support [facility] MEDICINE 230 [place] [address] Deborah Logan RN documented as of this encounter Visit Diagnoses Not on filedocumented in this encounter Additional Health Concerns Assessment Noted Time PHQ-9 Depression Total Score: 24 025 10:48 AM EST documented as of this encounter Care Teams Smoke Chaser Relationship Specialty Start Date End Date Lois Gaming NP 230 [place] [address] PCP - General Family Medicine 10/05/23 [facility] 11/11/23 documented as of this encounter
--- OUTSIDE RECORDS SUMMARY | 2024-10-12 16:20 | XMS_ITS | Encounter Summary ---
Author Organization [employer] Address 75 [facility] 7t [place] [address] Care Team Providers Care Production Line Mechanic Name Role Phone Dillon Alcantara AGNMarlon Primary Care Provider Unavail able Kristi BaeP Primary Care Provider [phone] Lois Gaming NP Primary Care Provider [phone] Reason for Visit * Reason Comments Med Refill Encounter Details Date Type Department Care Team ([facility] Contact Info) Description 06/22/2022 Refill [facility] MEDICINE [address] [place] [address] Dillon Alcantara AGNP Chronic low back pain, [...] Upcoming Encounters Date Type Department Care Team ([facility] Contact Info) Description 10/15/2024 9:00 AM EDT Clinical Support [facility] MEDICINE [address] [place] [address] Deborah Logan, BAM documented as of this encounter Visit Diagnoses Diagnosis Chronic low back pain, unspecified back pain laterality, unspecified whether sciatica present documented in this encounter Additional Health Concerns Assessment Noted Time PHQ-9 Depression Total Score: 17 023 9:10 AM EST documented as of this encounter Care Teams Production Line Mechanic Relationship Specialty Start Date End Date Dillon Alcantara AGNP PCP - General Family Medicine 01/05/22 10/15/22 Kristi Bae FNP [address] [place] [address] PCP - General Family Medicine 10/16/22 10/04/23 Lois Gaming NP 230 [place] [address] PCP - General Family Medicine 10/05/23 [facility] 11/11/23 documented as of this encounter
--- OUTSIDE RECORDS SUMMARY | 2024-10-12 16:20 | XMS_ITS | Encounter Summary ---
Author Organization [employer] Address 75 [facility] 7t [place] [address] Care Team Providers Care Manager Product Support Name Role Phone Kristi BaeP Primary Care Provider [phone] Lois Gaming NP Primary Care Provider [phone] Reason for Visit * Reason Onset Date Comments Medication Question 02/21/2023 Encounter Details Date Type Department Care Team ([facility] st Contact Info) Description 02/21/2023 Telephone [facility] MEDICINE 230 [place], [place] [phone] Kristi Bae FNP 230 [place], [place] [phone] Medication Question Social History Tobacco Use Types [...] pharmacies have Trulicity. Please contact pt at [phone] documented in this encounter Plan of Treatment Upcoming Encounters Date Type Department Care Team (Late st Contact Info) Description 10/15/2024 9:00 AM EDT Clinical Support [facility] MEDICINE [address] [place] [address] Deborah Logan RN documented as of this encounter Visit Diagnoses Not on filedocumented in this encounter Additional Health Concerns Assessment Noted Time PHQ-9 Depression Total Score: 17 023 9:10 AM EST documented as of this encounter Care Teams Manager Product Support Relationship Specialty Start Date End Date Kristi Bae FNP [address] [place] [address] PCP - General Family Medicine 10/16/22 10/04/23 Lois Gaming NP 230 [place] [address] PCP - General Family Medicine 10/05/23 [facility] 11/11/23 documented as of this encounter
--- OUTSIDE RECORDS SUMMARY | 2024-10-12 16:20 | XMS_ITS | Encounter Summary ---
Author Organization [employer] Address 75 [facility] 7t [place] [address] Care Team Providers Care Channel Lip Stiffener Insoles Name Role Phone Lois Gaming NP Primary Care Provider [phone] Reason for Visit * Reason Onset Date Comments PT-1 10/08/2024 Encounter Details Date Type Department Care Team ([facility] st Contact Info) Description 10/08/2024 Telephone [facility] MEDICINE 230 [place] [address] Lois Gaming NP 230 [place], [place] [phone] PT-1 Social History Tobacco Use Types Packs/Day [...] Y/N: Yes Provider name or facility name: [facility] Facility Address: [address] [place] [address] Escort needed: Y/N: No Do you have a wheelchair: Y/N: No If yes- Manual or electric: N/A Visits: Twice a week documented in this encounter Plan of Treatment Upcoming Encounters Date Type Department Care Team (Late st Contact Info) Description 10/15/2024 9:00 AM EDT Clinical Support [facility] MEDICINE 230 [place] [address] Deborah Logan RN documented as of this encounter Visit Diagnoses Not on filedocumented in this encounter Additional Health Concerns Assessment Noted Time PHQ-9 Depression Total Score: 24 025 10:48 AM EST documented as of this encounter Care Teams Channel Lip Stiffener Insoles Relationship Specialty Start Date End Date Lois Gaming NP 230 [place] [address] PCP - General Family Medicine 10/05/23 [facility] 11/11/23 documented as of this encounter
--- OUTSIDE RECORDS SUMMARY | 2024-10-12 16:20 | XMS_ITS | Encounter Summary ---
Author Organization [employer] Address [address] [facility] [address] 7t [place] [address] Care Team Providers Care Installation And Service Technician Name Role Phone Lois Gaming NP Primary Care Provider [phone] Reason for Visit * Reason Onset Date Comments Med Refill 10/07/2024 Encounter Details Date Type Department Care Team (Late st Contact Info) Description 10/07/2024 Refill [facility] [address] [place], [place] [phone] Lois Gaming NP 230 [place] [address] Type 2 diabetes 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, without long-term current use of insulin ([facility]) Social History Tobacco Use Types Packs/Day Years [...] Description 10/15/2024 9:00 AM EDT Clinical Support [facility] MEDICINE 230 [place] [address] Deborah Logan RN documented as of this encounter Visit Diagnoses Diagnosis Type 2 diabetes 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, without long-term current use of insulin ([facility]) documented in this encounter Additional Health Concerns Assessment Noted Time PHQ-9 Depression Total Score: 24 025 10:48 AM EST documented as of this encounter Care Teams Installation And Service Technician Relationship Specialty Start Date End Date Lois Gaming NP 230 [place] [address] PCP - General Family Medicine 10/05/23 [facility] 11/11/23 documented as of this encounter
--- OUTSIDE RECORDS SUMMARY | 2024-10-12 16:20 | XMS_ITS | Encounter Summary ---
Author Organization [employer] Address [address] [facility] [address] 7t [place] [address] Care Team Providers Care Dinkey Operator Name Role Phone Lois Gaming SHANNA Primary Care Provider [phone] Encounter Details Date Type Department Care Team [...] 9:00 AM EDT Clinical Support [facility] MEDICINE 230 [place] [address] Deborah Logan RN documented as of this encounter Visit Diagnoses Not on filedocumented in this encounter Additional Health Concerns Assessment Noted Time PHQ-9 Depression Total Score: 24 025 10:48 AM EST documented as of this encounter Care Teams Dinkey Operator Relationship Specialty Start Date End Date Lois Gaming NP 230 [place] [address] PCP - General Family Medicine 10/05/23 [facility] 11/11/23 documented as of this encounter
--- OUTSIDE RECORDS SUMMARY | 2024-10-12 16:20 | XMS_ITS | Encounter Summary ---
Author Organization [employer] Address 75 [facility] 7t [place] [address] Care Team Providers Care Flow Nurse Name Role Phone Lois Gaming NP Primary Care Provider [phone] Reason for Visit * Reason Onset Date Comments Nurse Triage 04/29/2024 Encounter Details Date Type Department Care Team ([facility] st Contact Info) Description 04/29/2024 Telephone [facility] MEDICINE 230 [place], [place] [phone] Lois Gaming NP 230 [place] [address] Nurse Triage Social History Tobacco Use Types [...] hand normally The caller accepted this outcome. [phone] Pt states while sleeping the diabetes sensor beeped and indicated low sugar (48, 55 and 67) but when the pt took it reading was 100 and 105. Pt states sweated a lot during the night. documented in this encounter Plan of Treatment Upcoming Encounters Date Type Department Care Team (Late st Contact Info) Description 10/15/2024 9:00 AM EDT Clinical Support [facility] MEDICINE [address] [place] [phone] Deborah Logan, BAM documented as of this encounter Visit Diagnoses Not on filedocumented in this encounter Additional Health Concerns Assessment Noted Time PHQ-9 Depression Total Score: 24 04/11/ 025 10:48 AM EST documented as of this encounter Care Teams Flow Nurse Relationship Specialty Start Date End Date Lois Gaming NP 230 [place] [address] PCP - General Family Medicine 10/05/23 [facility] 11/11/23 documented as of this encounter
--- OUTSIDE RECORDS SUMMARY | 2024-10-12 16:20 | XMS_ITS | Patient Health Record ---
Author Organization [facility] Address [address] [place] [address] Care Team Providers Care Brass Plater Name Role Phone Shannen Jefferson Primary Care [...] Problem Status W/U Status Risk Notes Problem [id number] Colon cancer screening (Z12.11) Active confirmed Problem [id number] Left lower quadrant pain (R10.32) Active confirmed Plan Of Treatment Future Test Test Name Order Date COLONOSCOPY 02/01/2022 Insurance Providers Payer Name Payer Address Payer Phone Subscriber Number Group Number Insured Name Patient Relationship to Insured Coverage Start Date Coverage End Date MEDICAID OF [employer] [address] [place] [phone] [id number] BRETT BENTLEY Self - patient is the insured Medical (General) History Medical History History ICD Code hypertension type 2 diabetes Elevated white blood cell count Anxiety/depression Obstructive sleep apnea, not on CPAP Back pain Surgical History Surgery Date(Month/Year) Hospitalization History Reason Date(Month/Year) UTI
--- OUTSIDE RECORDS SUMMARY | 2024-10-12 16:20 | XMS_ITS | Encounter Summary ---
Author Organization [employer] Address [address] [facility] 7t [place] [address] Care Team Providers Care Master Electrician Name Role Phone Quinton Dillon AGNMarlon Primary Care Provider Unavail Kristi PalomoP Primary Care Provider [phone] Lois Gaming NP Primary Care Provider [phone] Reason for Visit * Reason Comments Med Refill Encounter Details Date Type Department Care Team (Late st Contact Info) Description 02/22/2022 Refill [facility] MEDICINE [address] [place] [address] Mireya Andersen MD 230 [place], [place] [phone] Numbness of upper extremity (Primary Dx); Low [...] Clinical Support [facility] [address] [place] [address] Deborah Logan, RN documented as of this encounter Visit Diagnoses Diagnosis Numbness of upper extremity- Primary Low vitamin D level documented in this encounter Additional Health Concerns Assessment Noted Time PHQ-9 Depression Total Score: 17 023 9:10 AM EST documented as of this encounter Care Teams Master Electrician Relationship Specialty Start Date End Date Dillon Alcantara AGNP PCP - General Family Medicine 01/05/22 10/15/22 Kristi Bae FNP [address] [place] [address] PCP - General Family Medicine 10/16/22 10/04/23 Lois Gaming NP [address] [place] [address] PCP - General Family Medicine 10/05/23 [facility] 11/11/23 documented as of this encounter
--- OUTSIDE RECORDS SUMMARY | 2024-10-12 16:20 | XMS_ITS | Encounter Summary ---
Author Organization [employer] Address [address] 7t [place] [address] Care Team Providers Care Invoice Clerk Name Role Phone Lois Gaming NP Primary Care Provider [phone] Reason for Visit * Reason Comments Med Refill Encounter Details Date Type Department Care Team ([facility] st Contact Info) Description 2024 Refill [facility] MED[facility]INE [address] [place], [place] [phone] Lois Gaming NP 230 [place], [place] [phone] Low vitamin D level Social History Tobacco [...] 9:00 AM EDT Clinical Support [facility] [address] [place] [address] Deborah Logan RN documented as of this encounter Visit Diagnoses Diagnosis Low vitamin D level documented in this encounter Additional Health Concerns Assessment Noted Time PHQ-9 Depression Total Score: 24 025 10:48 AM EST documented as of this encounter Care Teams Invoice Clerk Relationship Specialty Start Date End Date Lois Gaming NP [address] [place] [address] PCP - General Family Medicine 10/05/23 [facility] 11/11/23 documented as of this encounter
--- OUTSIDE RECORDS SUMMARY | 2024-10-12 16:21 | XMS_ITS | Encounter Summary ---
Author Organization [employer] Address [address] [facility] 7t [place] [address] Care Team Providers Care Broadcast Director Operations Name Role Phone Kristi BaeP Primary Care Provider [phone] Lois Gaming NP Primary Care Provider [phone] Reason for Visit * Reason Onset Date Comments Medication Question 03/09/2023 Encounter Details Date Type Department Care Team ([facility] st Contact Info) Description 03/09/2023 Telephone [facility] MEDICINE [address] [place], [place] [phone] Kristi Bae FNP [address] [place], [place] [phone] Medication Question Social History Tobacco Use Types [...] - 03/13/2023 9:48 AM EST T/C to [facility] pharmacy for below message for medication, pharmacy states medication will be ready with in couples hours. T/C to pt. For inform above message from pharmacy, pt. Verbally agreed and understood. * Telephone Encounter - Washington Solorzano - 03/12/2023 4:50 PM EST Tc from pt requesting status on medication empagliflozin (Jardiance) 25 MG. Please contact pt at [phone]. * Telephone Encounter - Gabi Loja - 03/09/2023 11:53 AM EST Tc from pt requesting for empagliflozin (Jardiance) 25 MG to be sent to [id number]- [place], [place] - [address] [facility] [place]. Pt is out of medication. Pt states hecontact [facility] pharmacy and was advised it was transferred but pt called [facility] and was told they don't have a script. documented in this encounter Plan of Treatment Upcoming Encounters Date Type Department Care Team (Late st Contact Info) Description 10/15/2024 9:00 AM EDT Clinical Support [facility] MEDICINE [address] [place] [address] Deborah Logan, RN documented as of this encounter Visit Diagnoses Not on filedocumented in this encounter Additional Health Concerns Assessment Noted Time PHQ-9 Depression Total Score: 22 024 10:32 AM EST documented as of this encounter Care Teams Broadcast Director Operations Relationship Specialty Start Date End Date Kristi Bae FNP 230 [place] [address] PCP - General Family Medicine 10/16/22 10/04/23 Lois Gaming NP 230 [place] [address] PCP - General Family Medicine 10/05/23 [facility] 11/11/23 documented as of this encounter
--- OUTSIDE RECORDS SUMMARY | 2024-10-12 16:21 | XMS_ITS | Encounter Summary ---
Author Organization [employer] Address [address] [facility] 7t [place] [address] Care Team Providers Care Retail Service Specialist Name Role Phone Dillon Alcantara AGNMarlon Primary Care Provider Unavail Kristi PalomoP Primary Care Provider [phone] Lois Gaming NP Primary Care Provider [phone] Reason for Visit * Reason Comments Med Refill Encounter Details Date Type Department Care Team ([facility] Contact Info) Description 02/22/2022 Refill [facility] MEDICINE 230 [place] [address] Kaylynn Whiting MD [address] [place] [address] Chronic pain of both knees Social History [...] Description 10/15/2024 9:00 AM EDT Clinical Support [facility] MEDICINE 230 [place] [address] Deborah Logan RN documented as of this encounter Visit Diagnoses Diagnosis Chronic pain of both knees documented in this encounter Additional Health Concerns Assessment Noted Time PHQ-9 Depression Total Score: 17 023 9:10 AM EST documented as of this encounter Care Teams Retail Service Specialist Relationship Specialty Start Date End Date Dillon Alcantara AGNP PCP - General Family Medicine 01/05/22 10/15/22 Kristi Bae FNP [address] [place] [address] PCP - General Family Medicine 10/16/22 10/04/23 Lois Gaming NP [address] [place] [address] PCP - General Family Medicine 10/05/23 [facility] 11/11/23 documented as of this encounter
--- OUTSIDE RECORDS SUMMARY | 2024-10-12 16:21 | XMS_ITS | Encounter Summary ---
Author Organization [employer] Address [address] [facility] [address] [place] [address] Care Team Providers Care Splunk Dashboard Developer Name Role Phone Dillon Alcantara AGNMarlon Primary Care Provider Unavail able Kristi BaeP Primary Care Provider [phone] Lois Gaming NP Primary Care Provider [phone] Reason for Visit * Reason Onset Date Comments Appointment Request 02/02/2022 Encounter Details Date Type Department Care Team (Late Contact Info) Description 02/02/2022 Telephone [facility] MEDICINE [address] [place] [phone] Dillon Alcantara AGNP Appointment Request Social History [...] 8:34 AM EST Tc from Deepika from [facility] requesting a TP appt. documented in this encounter Plan of Treatment Upcoming Encounters Date Type Department Care Team (Late st Contact Info) Description 10/15/2024 9:00 AM EDT Clinical Support [address] [address] Deborah Logan RN documented as of this encounter Visit Diagnoses Not on filedocumented in this encounter Care Teams Splunk Dashboard Developer Relationship Specialty Start Date End Date Dillon Alcantara AGNP PCP - General Family Medicine 01/05/22 10/15/22 Kristi Bae FNP 230 [place] [address] PCP - General Family Medicine 10/16/22 10/04/23 Lois Gaming NP 230 [place] [address] PCP - General Family Medicine 10/05/23 [facility] 11/11/23 documented as of this encounter
--- OUTSIDE RECORDS SUMMARY | 2024-10-12 16:21 | XMS_ITS | Encounter Summary ---
Author Organization [employer] Address [address] [facility] 7t [place] [address] Care Team Providers Care Event Av Operator Name Role Phone Kristi BaeP Primary Care Provider [phone] Lois Gaming NP Primary Care Provider [phone] Reason for Visit * Reason Onset Date Comments New Med Request 09/12/2023 Encounter Details Date Type Department Care Team ([facility] st Contact Info) Description 09/12/2023 Telephone [facility] MEDICINE [address] [place], [place] [phone] Kristi Bae FNP 230 [place] [address] New Med Request Social History Tobacco Use [...] was gettingthis medication a while ago however loan underwriter does not see on med list documented in this encounter Plan of Treatment Upcoming Encounters Date Type Department Care Team (Late st Contact Info) Description 10/15/2024 9:00 AM EDT Clinical Support [facility] [address] [place] [address] Deborah Logan RN documented as of this encounter Visit Diagnoses Not on filedocumented in this encounter Additional Health Concerns Assessment Noted Time PHQ-9 Depression Total Score: 22 024 10:32 AM EST documented as of this encounter Care Teams Event Av Operator Relationship Specialty Start Date End Date Kristi Bae FNP 230 [place] [address] PCP - General Family Medicine 10/16/22 10/04/23 Lois Gaming NP 230 [place] [address] PCP - General Family Medicine 10/05/23 [facility] 11/11/23 documented as of this encounter
--- OUTSIDE RECORDS SUMMARY | 2024-10-12 16:21 | XMS_ITS | Encounter Summary ---
Author Organization [employer] Address [address] [facility] 7t [place] [address] Care Team Providers Care Roller Presser Operator Name Role Phone Kristi Bae Primary Care Provider [phone] Lois Gaming NP Primary Care Provider [phone] Reason for Visit * Reason Comments Med Refill Encounter Details Date Type Department Care Team ([facility] Contact Info) Description 03/12/2023 Refill [facility] MEDICINE 230 [place], [place] [phone] Kristi Bae FNP [address] [place] [address] Social History Tobacco Use Types Packs/Day Years [...] 9:00 AM EDT Clinical Support [facility] MEDICINE [address] [place] [address] Deborah Logan, RN documented as of this encounter Visit Diagnoses Not on filedocumented in this encounter Additional Health Concerns Assessment Noted Time PHQ-9 Depression Total Score: 22 024 10:32 AM EST documented as of this encounter Care Teams Roller Presser Operator Relationship Specialty Start Date End Date Kristi Bae FNP [address] [place] [address] PCP - General Family Medicine 10/16/22 10/04/23 Lois Gaming NP 230 [place] [address] PCP - General Family Medicine 10/05/23 [facility] 11/11/23 documented as of this encounter
--- OUTSIDE RECORDS SUMMARY | 2024-10-12 16:21 | XMS_ITS | Encounter Summary ---
Author Organization [employer] Address [address] [facility] [address] 7t [place] [address] Care Team Providers Care Vice President Research Name Role Phone Lois Gaming SHANNA Primary Care Provider [phone] Encounter Details Date Type Department Care Team (Late st Contact Info) Description 10/08/2023 Orders Only [facility]S [address] [place], [place] [phone] Kristi Bae FNP [address] [place] [address] Social History Tobacco Use Types Packs/Day Years [...] Description 10/15/2024 9:00 AM EDT Clinical Support [facility] MEDICINE [address] [place] [address] Deborah Logan RN documented as of this encounter Visit Diagnoses Not on filedocumented in this encounter Additional Health Concerns Assessment Noted Time PHQ-9 Depression Total Score: 22 024 10:32 AM EST documented as of this encounter Care Teams Vice President Research Relationship Specialty Start Date End Date Lois Gaming NP [address] [place] [address] PCP - General Family Medicine 10/05/23 [facility] 11/11/23 documented as of this encounter
--- OUTSIDE RECORDS SUMMARY | 2024-10-12 16:21 | XMS_ITS | Encounter Summary ---
Author Organization [employer] Address [address] [facility] 7t [place] [address] Care Team Providers Care Family Resource Management Professor Name Role Phone Kristi BaeP Primary Care Provider [phone] Lois Gaming NP Primary Care Provider Reason for Visit * Reason Onset Date Comments Med Refill 05/02/2023 Encounter Details Date Type Department Care Team ([facility] st Contact Info) Description 05/02/2023 Telephone [facility] MEDICINE [address] [place], [place] [phone] Kristi Bae FNP [address] [place], [place] [phone] Med Refill Social History Tobacco Use Types [...] 1000 MCG tablet To be sent to: [id number] - [place], [place] - [facility] documented in this encounter Plan of Treatment Upcoming Encounters Date Type Department Care Team (Late st Contact Info) Description 10/15/2024 9:00 AM EDT Clinical Support [facility] MEDICINE [address] [place] [phone] Deborah Logan RN documented as of this encounter Visit Diagnoses Not on filedocumented in this encounter Additional Health Concerns Assessment Noted Time PHQ-9 Depression Total Score: 22 024 10:32 AM EST documented as of this encounter Care Teams Family Resource Management Professor Relationship Specialty Start Date End Date Kristi Bae FNP [address] [place] [address] PCP - General Family Medicine 10/16/22 10/04/23 Lois Gaming NP 230 [place] [address] PCP - General Family Medicine 10/05/23 [facility] 11/11/23 documented as of this encounter
--- OUTSIDE RECORDS SUMMARY | 2024-10-12 16:21 | XMS_ITS | Encounter Summary ---
Author Organization [employer] Address [address] [facility] 7t [place] [address] Care Team Providers Care Goldsmith Apprentice Name Role Phone Dillon Alcantara AGNMarlon Primary Care Provider Unavail Kristi PalomoP Primary Care Provider [phone] Lois Gaming NP Primary Care Provider [phone] Reason for Visit * Reason Comments Med Refill Encounter Details Date Type Department Care Team ([facility] Contact Info) Description 02/22/2022 Refill [facility] MEDICINE [address] [place] [address] Kaylynn Whiting MD [address] [place] [address] Chronic pain of both knees Social History [...] Clinical Support [facility] MEDICINE [address] [place] [address] Deborah Logan RN documented as of this encounter Visit Diagnoses Diagnosis Chronic pain of both knees documented in this encounter Additional Health Concerns Assessment Noted Time PHQ-9 Depression Total Score: 17 023 9:10 AM EST documented as of this encounter Care Teams Goldsmith Apprentice Relationship Specialty Start Date End Date Dillon Alcantara AGNP PCP - General Family Medicine 01/05/22 10/15/22 Kristi Bae FNP 230 [place] [address] PCP - General Family Medicine 10/16/22 10/04/23 Lois Gaming NP 230 [place] [address] PCP - General Family Medicine 10/05/23 [facility] 11/11/23 documented as of this encounter
--- OUTSIDE RECORDS SUMMARY | 2024-10-12 16:21 | XMS_ITS | Encounter Summary ---
Author Organization [employer] Address [address] [facility] 7t [place] [address] Care Team Providers Care Process Controller Name Role Phone Kristi BaeP Primary Care Provider [phone] Lois Gaming NP Primary Care Provider [phone] Reason for Visit * Reason Comments Med Refill Encounter Details Date Type Department Care Team ([facility] st Contact Info) Description 09/12/2023 Refill [facility] MEDICINE [address] [place], [place] [phone] Kristi Bae FNP [address] [place] [address] Chronic low back pain, unspecified back pain [...] is your housing situation today? I have daams gutiérrez 02/23/[address] you [...] 10/15/2024 9:00 AM EDT Clinical Support [facility] MEDICINE [address] [place] [address] Deborah Logan RN documented as of this encounter Visit Diagnoses Diagnosis Chronic low back pain, unspecified back pain laterality, unspecified whether sciatica present documented in this encounter Additional Health Concerns Assessment Noted Time PHQ-9 Depression Total Score: 22 024 10:32 AM EST documented as of this encounter Care Teams Process Controller Relationship Specialty Start Date End Date Kristi Bae FNP [address] [place] [address] PCP - General Family Medicine 10/16/22 10/04/23 Lois Gaming NP [address] [place] [address] PCP - General Family Medicine 10/05/23 [facility] 11/11/23 documented as of this encounter
--- OUTSIDE RECORDS SUMMARY | 2024-10-12 16:21 | XMS_ITS | Encounter Summary ---
Author Organization [employer] Address [address] [facility] 7t [place] [address] Care Team Providers Care Phototypesetter Operator Name Role Phone Dillon Alcantara AGNMarlon Primary Care Provider Unavail Kristi PalomoP Primary Care Provider [phone] Lois Gaming NP Primary Care Provider [phone] Reason for Visit * Reason Comments Med Refill Encounter Details Date Type Department Care Team ([facility] Contact Info) Description 02/22/2022 Refill [facility] MEDICINE [address] [place] [address] Kaylynn Whiting MD [address] [place] [address] Chronic pain of both knees Social History [...] Support [facility] MEDICINE [address] [place] [address] Deborah Logan RN documented as of this encounter Visit Diagnoses Diagnosis Chronic pain of both knees documented in this encounter Additional Health Concerns Assessment Noted Time PHQ-9 Depression Total Score: 17 023 9:10 AM EST documented as of this encounter Care Teams Phototypesetter Operator Relationship Specialty Start Date End Date Dillon Alcantara AGNP PCP - General Family Medicine 01/05/22 10/15/22 Kristi Bae FNP [address] [place] [address] PCP - General Family Medicine 10/16/22 10/04/23 Lois Gaming NP 230 [place] [address] PCP - General Family Medicine 10/05/23 [facility] 11/11/23 documented as of this encounter
[2024-10-12] MEDS: iohexoL 350 MG/ML 100 ML INFUS..BTL IV (17:53)
[2024-10-12 18:42] VITALS: BP 131/76; PULSE 81; RESP 18; TEMP 37; O2SAT 96
[2024-10-12 20:33] VITALS: BP 131/76; PULSE 81; RESP 18; TEMP 37; O2SAT 96
== END 2024-10-12 20:34 | disposition home or self-care (01) ==
PROVIDERS: Physician Assistant; Emergency Provider Student in an Organized Health Care Education/Training Program; PCP Nurse Practitioner Family
DX: S42.002A Fracture of unspecified part of left clavicle, initial encounter for closed fracture (principal); I10 Essential (primary) hypertension; E66.01 Morbid (severe) obesity due to excess calories; G54.0 Brachial plexus disorders; X58.XXXA Exposure to other specified factors, initial encounter; Y93.89 Activity, other specified; Y92.89 Other specified places as the place of occurrence of the external cause; Y99.8 Other external cause status; Z68.43 Body mass index [BMI] 50.0-59.9, adult; Z79.899 Other long term (current) drug therapy
CPT/HCPCS: 36415; 70491; 73030; 73201; 80053; 83605; 84484; 85025; 85610; 85730; 87040; 93005; 96361; 96374; 96375; 99284; 99285; J0696; J2270; Q9967

== ENCOUNTER → 2024-10-12 14:49 | Outpatient (BNV) | payer MEDICAID, SELFPAY | PROVIDERS: Emergency Provider Student in an Organized Health Care Education/Training Program; PCP Nurse Practitioner Family; Visit Provider Radiology Diagnostic Radiology | DX: S42.002A Fracture of unspecified part of left clavicle, initial encounter for closed fracture (principal); S22.32XA Fracture of one rib, left side, initial encounter for closed fracture; M25.512 Pain in left shoulder | CPT/HCPCS: 70491; 73030; 73201 ==

== ENCOUNTER → 2024-10-12 14:49 | Outpatient (BNV) | payer MEDICAID, SELFPAY | PROVIDERS: Emergency Provider Student in an Organized Health Care Education/Training Program; PCP Nurse Practitioner Family; Visit Provider Internal Medicine Cardiovascular Disease | DX: M25.512 Pain in left shoulder (principal) | CPT/HCPCS: 93010 ==

== ENCOUNTER 2024-11-03 08:31 | Outpatient (AMB) | payer MEDICAID, SELFPAY ==
--- NOTE | 2024-11-03 08:37 | MHC.OFFVIS ---
Vital Signs 11/03/24 08:43 Height 5 ft 6 in Weight 367 lb BMI 59.2 Intake Visit Reasons: FC-LT clavicle avulsion fx Intake Note: Kodi is a 49 year old right hand dominant male who presents today as a new patient to evaluate left clavicle fracture. Patient reports having pain in his shoulder for a couple of months. He was seen by his PCP who referred to physical therapy, states after attending his pain increased his pain. He presented to [facility] ER where a CT scan was obtained and referred to orthopedics. He is unaware of any traumatic injury. Finds some relief with Tylenol, Motrin and tramadol. Allergies No Known Allergies Allergy (Verified 11/03/24 08:47) Medication List - Last Reconciled 11/03/24 by Evelin Hatch PA-C acetaminophen (Tylenol Extra Strength) 1,000 mg (2 x 500 mg) PO Q8H 14 days alcohol swabs (Alcohol Prep Pads) pad topical BID blood sugar diagnostic (FreeStyle Precision Neal Strips) As directed blood-glucose sensor (FreeStyle Get 3 Plus Sensor device) As directed cholecalciferol (vitamin D3) (Vitamin D3) 1 cap PO DAILY clonazepam 0.5 mg PO TID cyanocobalamin (vitamin B-12) 1 tab PO DAILY ferrous gluconate 324 mg PO 3XW gabapentin 300 mg PO BID ibuprofen 400 mg PO Q8H 14 days insulin glargine (Lantus Solostar U-100 Insulin) 20 units subcut BID insulin lispro (Admelog U-100 Insulin lispro) See Protocol units subcut QIDACHS lancets (TRUEplus Lancets) As directed lidocaine 5% 1 patch topical DAILY mirtazapine 45 mg PO BEDTIME mometasone 200 mcg/actuation (Asmanex HFA) 1 puff inhalation BID omeprazole 20 mg PO DAILY pen needle, diabetic (Easy Touch) As directed ropinirole 2 mg PO BEDTIME sertraline 150 mg (3 x 50 mg) PO DAILY sodium hypochlorite 0.125% (Dakin's Solution) 1 appl topical DAILY tirzepatide (weight loss) (Zepbound) mg subcut QWEEK tramadol 50 mg PO Q8H PRN HPI HPI FC-LT clavicle avulsion fx: Details: 49-year-old gentleman presents to the office today for pain in his left shoulder. He was seen in the emergency department on 10/12/2024 due to worsening pain in the left shoulder. Denies injury. While in the emergency department he had an x-ray and CT scan of his shoulder and neck which was significant for an avulsion fracture of the clavicle along with the fracture through the 1st rib. The patient states there is no recollection of any incident that may have caused this. He is currently in physical therapy and he has no concerns today. [facility] Medical History Morbid obesity with BMI of 50.0-59.9, adult Open wound Necrotizing soft tissue infection Soft tissue infection Morbid obesity Back pain KIM (obstructive sleep apnea) Anxiety and depression Elevated WBCs Type 2 diabetes mellitus HTN (hypertension) Surgical History Hx of surgical procedure (~09/17/23) Hx of oral surgery Social History Household Members: None Housing: Apartment Do you presently have visiting nurse or other home services: Yes (MARKETING RESEARCH COORDINATOR 4 times a week) Alcohol intake: never Patient Tobacco Use Status: Current everyday Tobacco user Tobacco use type: Cigarette Cigarettes Per Day: 2 Years Smoked: 25 e-Cigarette/Vaping Use: Never Used Substance Use Type: Marijuana Advance Directives Date on File: 10/03/23 service: No Review of Systems Const All systems reviewed & are unremarkable except as noted in HPI and below Physical Exam Vital Signs: BMI result Body Mass Index 59.2 Const General: cooperative and no acute distress Orientation/consciousness: patient oriented x3 Resp Effort & Inspection: normal respiratory effort and able to speak in complete sentences Cardio Peripheral pulses: Peripheral pulses 2+ throughout Neuro General: patient oriented x3 Extrem Other: Left shoulder full range of motion. Mild crepitus. No tenderness to palpation. Neurovascularly intact. Results Reviewed Results Reviewed: IMPRESSION: 1. There are tiny avulsion fractures of the left clavicle and left 1st rib. These may be at the level of the costoclavicular ligament. Assessment & Plan Assessment & Plan (1) Left shoulder tendonitis: Code(s): M77.8 - Other enthesopathies, not elsewhere classified Category: Medical Plan: Patient will continue with physical therapy and activities as tolerated. If there is any questions or concerns he will contact our office otherwise follow up as needed. Coding Level of Care Code New Pt Level 3 (21692) Complex EM visit Add On G2211 Diagnoses Left shoulder tendonitis M77.8
[2024-11-03 08:43] VITALS: BMI 59.2
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
--- OUTSIDE RECORDS SUMMARY | 2024-11-03 08:53 | XMS_ITS | Encounter Summary ---
Author Organization [employer] Address [address] [facility] 7t [place] [address] Care Team Providers Care Rent Collector Name Role Phone Kristi Bae Primary Care Provider [phone] Lois Gaming NP Primary Care Provider [phone] Kuldeep Matthews RN Unavailable [phone] Deepika Pelletier Unavailable Reason for Visit * Reason Onset Date Comments PT1 12/18/2022 Encounter Details Date Type Department Care Team (Late st Contact Info) Description 12/18/2022 Telephone [facility] MEDICINE [address] [place], [place] [phone] Kristi Bae FNP [address] [place], [place] [phone] PT1 Social History Tobacco Use Types Packs/Day [...] 12/19/2022 10:12 AM EST PT-1 Request Number [id number] is Pending * Telephone Encounter - Batsheva Huffman - 12/18/2022 8:22 AM EST PT1 Name of facility: [facility] Specialty: Future Appt's Location: [address] [place] [address] Date: N/a Time: n/a fax: [phone] wheelchair: No Bulk Picker: No All future visits within the Clinic. Phone number and Address Verified. documented in this encounter Plan of Treatment Upcoming Encounters Date Type Department Care Team ([facility] st Contact Info) Description 12/30/2024 1:45 PM EST Office Visit [facility] [address] [place] [address] Lois Gaming NP [address] [place] [address] 01/15/2025 9:00 AM EST Clinical Support [facility] [address] [place] [address] Deborah Logan, RN documented as of this encounter Visit Diagnoses Not on filedocumented in this encounter Additional Health Concerns Assessment Noted Time PHQ-9 Depression Total Score: 17 023 9:10 AM EST documented as of this encounter Care Teams Rent Collector Relationship Specialty Start Date End Date Kristi Bae FNP [address] [place] [address] PCP - General Family Medicine 10/16/22 10/04/23 Lois Gaming NP [address] [place] [address] PCP - General Family Medicine 10/05/23 Kuldeep Matthews, BAM [address] [place] [address] Registered Nurse Family Medicine 10/13/24 Deepika Pelletier 10/13/24 [facility] 11/11/23 documented as of this encounter
--- OUTSIDE RECORDS SUMMARY | 2024-11-03 08:53 | XMS_ITS | Encounter Summary ---
Author Organization [employer] Address [address] [facility] [address] 7t [place] [address] Care Team Providers Care Environmental Management Specialist Name Role Phone Kristi Bae WINDOWS DESKTOP SUPPORT Primary Care Provider [phone] Lois Gaming NP Primary Care Provider [phone] Kuldeep Matthews RN Unavailable [phone] Deepika Pelletier Unavailable Reason for Visit * Reason Comments Med Refill Encounter Details Date Type Department Care Team (Late st Contact Info) Description 03/06/2023 Refill [facility] [address] [place] [address] Dillon Alcantara AGNP Social History Tobacco Use [...] Description 12/30/2024 1:45 PM EST Office Visit [address] [place] [address] [address] Lois Gaming NP [address] [place] [address] 01/15/2025 9:00 AM EST Clinical Support [address] [place] [address] [address] Deborah Logan RN documented as of this encounter Visit Diagnoses Not on filedocumented in this encounter Additional Health Concerns Assessment Noted Time PHQ-9 Depression Total Score: 22 024 10:32 AM EST documented as of this encounter Care Teams Environmental Management Specialist Relationship Specialty Start Date End Date Kristi Bae FNP [address] [place] [address] PCP - General Family Medicine 10/16/22 10/04/23 Lois Gaming NP [address] [place] [address] PCP - General Family Medicine 10/05/23 Kuldeep Matthews RN [address] [place] [address] Registered Nurse Family Medicine 10/13/24 Deepika Pelletier 10/13/24 [facility] 11/11/23 documented as of this encounter
--- OUTSIDE RECORDS SUMMARY | 2024-11-03 08:53 | XMS_ITS | Encounter Summary ---
Author Organization [employer] Address [address] [facility] 7t [place] [address] Care Team Providers Care Agile Java Developer Name Role Phone Kristi Bae Primary Care Provider [phone] Lois Gaming NP Primary Care Provider [phone] Kuldeep Matthews RN Unavailable [phone] Deepika Pelletier Unavailable Reason for Visit * Reason Onset Date Comments Medication Question 02/21/2023 Encounter Details Date Type Department Care Team ([facility] st Contact Info) Description 02/21/2023 Telephone [facility] [address] [place], [place] [phone] Kristi Bae FNP [address] [place], [place] [phone] Medication Question Social History Tobacco Use Types Packs/Day Years Used Date Smoking Tobacco: Every Day Cigarettes Smokeless Tobacco: Never Alcohol Use Standard Drinks/Week Comments Never 0 (1 standard drink = 0.6 oz pur e alcohol) Depression Answer Date Recorded Patient Health Questionnaire-9 Score 17 02/15/2022 Housing Stability Answer Date Recorded What is your housing situation today? I have adams sing 02/23/[address] you li [...] pharmacies have Trulicity. Please contact pt at [phone] documented in this encounter Plan of Treatment Upcoming Encounters Date Type Department Care Team (Late st Contact Info) Description 12/30/2024 1:45 PM EST Office Visit [facility] [address] [place] [address] Lois Gaming NP [address] [place] [address] 01/15/2025 9:00 AM EST Clinical Support [facility] [address] [place] [address] Deborah Logan RN documented as of this encounter Visit Diagnoses Not on filedocumented in this encounter Additional Health Concerns Assessment Noted Time PHQ-9 Depression Total Score: 17 023 9:10 AM EST documented as of this encounter Care Teams Agile Java Developer Relationship Specialty Start Date End Date Kristi Bae FNP [address] [place] [address] PCP - General Family Medicine 10/16/22 10/04/23 Lois Gaming NP [address] [place] [address] PCP - General Family Medicine 10/05/23 Kuldeep Matthews, BAM [address] [place] [address] Registered Nurse Family Medicine 10/13/24 Deepika Pelletier 10/13/24 [facility] 11/11/23 documented as of this encounter
--- OUTSIDE RECORDS SUMMARY | 2024-11-03 08:53 | XMS_ITS ---
Author Organization [employer] Address [address] [facility] 7t [place] [address] Care Team Providers Care Crusher And Blender Operator Name Role Phone Lois Gaming NP Primary Care Provider [phone] Kuldeep Matthews RN Unavailable [phone] Deepika Pelletier Unavailable CM Complex Status:Enrolled (Active) Start date:10/13/2024 Enrollment date:10/23/2024 Enrollment reason:ADT Feed Overview ED- Pt went to [facility] ED on 10/12/24. Case Team Name Relationship Phone Kuldeep Matthews RN(Responsible Staff) Registered N [facility] [phone] Continued Care and Services Coordination
--- OUTSIDE RECORDS SUMMARY | 2024-11-03 08:53 | XMS_ITS | Encounter Summary ---
Author Organization [employer] Address [address] [facility] [address] [place] [address] Care Team Providers Care Athletic Instructor Name Role Phone CarmellaKristi sahu CONCRETE WALL GRINDER OPERATOR Primary Care Provider [phone] Lois Gaming NP Primary Care Provider [phone] Kuldeep Matthews RN Unavailable [phone] Deepika Pelletier Unavailable Reason for Visit * Reason Comments Med Refill Encounter Details Date Type Department Care Team (Late st Contact Info) Description 01/22/2023 Refill [facility] [address] [place] [address] Dillon Alcantara AGNP Social History Tobacco Use [...] Description 12/30/2024 1:45 PM EST Office Visit [address] [address] Lois Gaming NP [address] [place] [address] 01/15/2025 9:00 AM EST Clinical Support [address] [address] Deborah Logan RN documented as of this encounter Visit Diagnoses Not on filedocumented in this encounter Additional Health Concerns Assessment Noted Time PHQ-9 Depression Total Score: 17 023 9:10 AM EST documented as of this encounter Care Teams Athletic Instructor Relationship Specialty Start Date End Date Kristi Bae FNP [address] [place] [address] PCP - General Family Medicine 10/16/22 10/04/23 Lois Gaimng NP [address] [place] [address] PCP - General Family Medicine 10/05/23 Kuldeep Matthews, RN [address] [place] [address] Registered Nurse Family Medicine 10/13/24 Deepika Pelletier 10/13/24 [facility] 11/11/23 documented as of this encounter
--- OUTSIDE RECORDS SUMMARY | 2024-11-03 08:53 | XMS_ITS | Encounter Summary ---
Author Organization [employer] Address [address] [facility] 7t [place] [address] Care Team Providers Care Transport Truck Driver Name Role Phone Lois Gaming NP Primary Care Provider [phone] Kuldeep Matthews RN Unavailable [phone] Deepika Pelletier Unavailable Reason for Visit * Reason Onset Date Comments Prior Authorization 02/15/2024 Encounter Details Date Type Department Care Team (Late st Contact Info) Description 02/15/2024 Telephone [facility] [address] [place], [place] [phone] Lois Gaming NP [address] [place], [place] [phone] Prior Authorization Social History Tobacco Use Types [...] to pcp for review and signature via Bkam. * Telephone Encounter - Mile Chairez - 02/18/2024 9:20 AM EST Tc from pt requesting a PA for medication (Tramadol) as he been calling since last week. * Telephone Encounter - Washington Solorzano - 02/15/2024 1:06 PM EST Tc from pt stating Tramadol needs a medication refill. Please contact pt at [phone]. (Serbian Speaker) documented in this encounter Plan of Treatment Upcoming Encounters Date Type Department Care Team (Late st Contact Info) Description 12/30/2024 1:45 PM EST Office Visit [address] [address] Lois Gaming NP [address] [place] [address] 01/15/2025 9:00 AM EST Clinical Support [address] [address] Deborah Logan, BAM documented as of this encounter Visit Diagnoses Not on filedocumented in this encounter Additional Health Concerns Assessment Noted Time PHQ-9 Depression Total Score: 23 024 3:28 PM EST documented as of this encounter Care Teams Transport Truck Driver Relationship Specialty Start Date End Date Lois Gaming NP [address] [place] [address] PCP - General Family Medicine 10/05/23 Kuldeep Matthews, RN [address] [place] [address] Registered Nurse Family Medicine 10/13/24 Deepika Pelletier 10/13/24 [facility] 11/11/23 documented as of this encounter
--- OUTSIDE RECORDS SUMMARY | 2024-11-03 08:53 | XMS_ITS ---
Author Organization [employer] Address [address] [facility] 7t [place] [address] Care Team Providers Care Registry Np Name Role Phone Lois Gaming NP Primary Care Provider [phone] Kuldeep Matthews RN Unavailable Deepika Pelletier Unavailable [facility] Complex Status:Enrolled (Active) Start date:10/13/2024 Enrollment date:10/13/2024 Enrollment reason:ADT Feed Overview ED- Pt went to [facility] ED on 10/12/24. Case Team Name Relationship Phone Deepika Pelletier(Responsible Staff) [phone] Continued Care and Services Coordination
--- OUTSIDE RECORDS SUMMARY | 2024-11-03 08:53 | XMS_ITS | Encounter Summary ---
Author Organization [employer] Address [address] [facility] 7t [place] [address] Care Team Providers Care Machine Chocolate Molder Name Role Phone Kristi Bae Primary Care Provider [phone] Lois Gaming NP Primary Care Provider [phone] Kuldeep Matthews RN Unavailable [phone] Deepika Pelletier Unavailable Reason for Visit * Reason Comments Med Refill Encounter Details Date Type Department Care Team (Late st Contact Info) Description 11/14/2022 Refill [facility]INE [address] [place], [place] [phone] Kristi Bae FNP [address] [place] [address] Chronic low back pain, unspecified back pain [...] housing situation today? I have adams marla 11/12/[address] you li [...] Description 12/30/2024 1:45 PM EST Office Visit [address] [address] Lois Gaming NP [address] [place] [address] 01/15/2025 9:00 AM EST Clinical Support [address] [address] Deborah Logan RN documented as of this encounter Visit Diagnoses Diagnosis Chronic low back pain, unspecified back pain laterality, unspecified whether sciatica present documented in this encounter Additional Health Concerns Assessment Noted Time PHQ-9 Depression Total Score: 17 023 9:10 AM EST documented as of this encounter Care Teams Machine Chocolate Molder Relationship Specialty Start Date End Date Kristi Bae FNP [address] [place] [address] PCP - General Family Medicine 10/16/22 10/04/23 Lois Gaming NP [address] [place] [address] PCP - General Family Medicine 10/05/23 Kuldeep Matthews, RN [address] [place] [address] Registered Nurse Family Medicine 10/13/24 Deepika Pelletier 10/13/24 [facility] 11/11/23 documented as of this encounter
--- OUTSIDE RECORDS SUMMARY | 2024-11-03 08:53 | XMS_ITS | Encounter Summary ---
Author Organization [employer] Address 75 [facility] 7t [place] [address] Care Team Providers Care Dependency Program Director Name Role Phone Lois Gaming NP Primary Care Provider [phone] Kuldeep Matthews RN Unavailable [phone] Deepika Pelletier Unavailable Reason for Visit * Reason Onset Date Comments Med Refill 10/27/2024 Encounter Details Date Type Department Care Team (Late st Contact Info) Description 10/27/2024 Telephone [facility] MEDICINE 230 [place], [place] [phone] Lois Gaming NP 230 [place], [place] [phone] Med Refill Social History Tobacco Use Types [...] the past 12 months, has t he [email or web address] gas, oil or water company threatened to [...] Telephone Encounter - Windy Donahue LPN - 10/27/2024 8:57 AM EDT Medication pended to PCP. * Telephone Encounter - Katherine Pelletier - 10/27/2024 8:50 AM EDT TC from pt requesting medication refill. Medications needing refill : - lisinopril 20 MG tablet To be sent to: - [id number] - [place] - [address] [facility] documented in this encounter Plan of Treatment Upcoming Encounters Date Type Department Care Team (Late st Contact Info) Description 12/30/2024 1:45 PM EST Office Visit [address] [address] Lois Gaming NP [address] [place] [address] 01/15/2025 9:00 AM EST Clinical Support [address] [address] Deborah Logan, BAM documented as of this encounter Visit Diagnoses Not on filedocumented in this encounter Additional Health Concerns Assessment Noted Time PHQ-9 Depression Total Score: 24 025 10:48 AM EST documented as of this encounter Care Teams Dependency Program Director Relationship Specialty Start Date End Date Lois Gaming NP [address] [place] [address] PCP - General Family Medicine 10/05/23 Kuldeep Matthews, RN [address] [place] [address] Registered Nurse Family Medicine 10/13/24 Deepika Pelletier 10/13/24 [facility] 11/11/23 documented as of this encounter
--- OUTSIDE RECORDS SUMMARY | 2024-11-03 08:53 | XMS_ITS | Encounter Summary ---
Author Organization [employer] Address 75 [facility] 7t [place] [address] Care Team Providers Care Detacker Name Role Phone Kristi Bae Primary Care Provider [phone] Lois Gaming NP Primary Care Provider [phone] Kuldeep Matthews RN Unavailable [phone] Deepika Pelletier Unavailable Reason for Visit * Reason Comments Med Refill Encounter Details Date Type Department Care Team (Late st Contact Info) Description 11/14/2022 Refill [facility] MEDICINE 230 [place], [place] [phone] Kristi Bae FNP 230 [place] [address] Chronic low back pain, unspecified back pain [...] Description 12/30/2024 1:45 PM EST Office Visit [address] [address] Lois Gaming NP [address] [place] [address] 01/15/2025 9:00 AM EST Clinical Support [address] [address] Deborah Logan RN documented as of this encounter Visit Diagnoses Diagnosis Chronic low back pain, unspecified back pain laterality, unspecified whether sciatica present documented in this encounter Additional Health Concerns Assessment Noted Time PHQ-9 Depression Total Score: 17 023 9:10 AM EST documented as of this encounter Care Teams Detacker Relationship Specialty Start Date End Date Kristi Bae FNP [address] [place] [address] PCP - General Family Medicine 10/16/22 10/04/23 Lois Gaming NP [address] [place] [address] PCP - General Family Medicine 10/05/23 Kuldeep Matthews, RN [address] [place] [address] Registered Nurse Family Medicine 10/13/24 Deepika Pelletier 10/13/24 [facility] 11/11/23 documented as of this encounter
--- OUTSIDE RECORDS SUMMARY | 2024-11-03 08:53 | XMS_ITS | Encounter Summary ---
Author Organization [employer] Address 75 [facility] 7t [place] [address] Care Team Providers Care Informatics Analyst Name Role Phone Lois Gaming NP Primary Care Provider [phone] Kuldeep Matthews RN Unavailable [phone] Deepika Pelletier Unavailable Reason for Visit * Reason Onset Date Comments Nurse Triage 04/29/2024 Encounter Details Date Type Department Care Team ([facility] st Contact Info) Description 04/29/2024 Telephone [facility] MEDICINE 230 [place], [place] [phone] Lois Gaming NP 230 [place], [place] [phone] Nurse Triage Social History Tobacco Use Types [...] hand normally The caller accepted this outcome. [phone] Pt states while sleeping the diabetes sensor beeped and indicated low sugar (48, 55 and 67) but when the pt took it reading was 100 and 105. Pt states sweated a lot during the night. documented in this encounter Plan of Treatment Upcoming Encounters Date Type Department Care Team (Late st Contact Info) Description 12/30/2024 1:45 PM EST Office Visit [facility] MEDICINE 230 [place] [address] Lois Gaming NP 230 [place], [place] [phone] 01/15/2025 9:00 AM EST Clinical Support [facility] MEDICINE [address] [place] [address] Deborah Logan, BAM documented as of this encounter Visit Diagnoses Not on filedocumented in this encounter Additional Health Concerns Assessment Noted Time PHQ-9 Depression Total Score: 24 04/11/ 025 10:48 AM EST documented as of this encounter Care Teams Informatics Analyst Relationship Specialty Start Date End Date Lois Gaming NP 230 [place] [address] PCP - General Family Medicine 10/05/23 Kuldeep Matthews, BAM [address] [place] [address] Registered Nurse Family Medicine 10/13/24 Deepika Pelletier 10/13/24 [facility] 11/11/23 documented as of this encounter
--- OUTSIDE RECORDS SUMMARY | 2024-11-03 08:53 | XMS_ITS | Patient Health Record ---
Author Organization [facility] Address [address] [place] [phone] Care Team Providers Care Offc Spec Name Role Phone Shannen Jefferson Primary Care [...] Problem Status W/U Status Risk Notes Problem [id number] Colon cancer screening (Z12.11) Active confirmed Problem [id number] Left lower quadrant pain (R10.32) Active confirmed Plan Of Treatment Future Test Test Name Order Date COLONOSCOPY 02/01/2022 Insurance Providers Payer Name Payer Address Payer Phone Subscriber Number Group Number Insured Name Patient Relationship to Insured Coverage Start Date Coverage End Date MED[place] OF [place] [address] [place] [phone] [id number] BRETT BENTLEY Self - patient is the insured Medical (General) History Medical History History ICD Code hypertension type 2 diabetes Elevated white blood cell count Anxiety/depression Obstructive sleep apnea, not on CPAP Back pain Surgical History Surgery Date(Month/Year) Hospitalization History Reason Date(Month/Year) UTI
--- OUTSIDE RECORDS SUMMARY | 2024-11-03 08:53 | XMS_ITS | Encounter Summary ---
Author Organization [employer] Address 75 [facility] 7t [place] [address] Care Team Providers Care Potato Chip Sorter Name Role Phone Kristi Bae Primary Care Provider [phone] Lois Gaming NP Primary Care Provider [phone] Kuldeep Matthews RN Unavailable [phone] Deepika Pelletier Unavailable Reason for Visit * Reason Onset Date Comments Med Refill 01/22/2023 Encounter Details Date Type Department Care Team (Late st Contact Info) Description 01/22/2023 Telephone [facility] MEDICINE 230 [place], [place] [phone] Kristi Bae FNP 230 [place], [place] [phone] Med Refill Social History Tobacco Use Types [...] solution pen- injector to be sent to [facility] - [place], [place] - [address] [place] [address] documented in this encounter Plan of Treatment Upcoming Encounters Date Type Department Care Team ([facility] st Contact Info) Description 12/30/2024 1:45 PM EST Office Visit [facility] MEDICINE [address] [place] [address] Lois Gaming NP 230 [place] [address] 01/15/2025 9:00 AM EST Clinical Support [facility] [address] [place] [address] Deborah Logan RN documented as of this encounter Visit Diagnoses Not on filedocumented in this encounter Additional Health Concerns Assessment Noted Time PHQ-9 Depression Total Score: 17 023 9:10 AM EST documented as of this encounter Care Teams Potato Chip Sorter Relationship Specialty Start Date End Date Kristi Bae FNP 230 [place] [address] PCP - General Family Medicine 10/16/22 10/04/23 Lois Gaming NP [address] [place] [address] PCP - General Family Medicine 10/05/23 Kuldeep Matthews, BAM [address] [place] [address] Registered Nurse Family Medicine 10/13/24 Deepika Pelletier 10/13/24 [facility] 11/11/23 documented as of this encounter
--- OUTSIDE RECORDS SUMMARY | 2024-11-03 08:54 | XMS_ITS | Encounter Summary ---
Author Organization [employer] Address 75 [facility] 7t [place] [address] Care Team Providers Care Gluing Machine Feeder Name Role Phone Lois Gaming NP Primary Care Provider [phone] Kuldeep Matthews RN Unavailable [phone] Deepika Pelletier Unavailable Reason for Visit * Reason Onset Date Comments Call Back Request 07/30/2024 Encounter Details Date Type Department Care Team ([facility] st Contact Info) Description 07/30/2024 Telephone [facility] MEDICINE 230 [place], [place] [phone] Lois Gaming NP 230 [place], [place] [phone] Call Back Request Social History Tobacco Use [...] like to clarify. Please contact pt at [phone]. documented in this encounter Plan of Treatment Upcoming Encounters Date Type Department Care Team (Late st Contact Info) Description 12/30/2024 1:45 PM EST Office Visit [address] [address] Lois Gaming NP 230 [place] [address] 01/15/2025 9:00 AM EST Clinical Support [address] [address] Deborah Logan, RN documented as of this encounter Visit Diagnoses Not on filedocumented in this encounter Additional Health Concerns Assessment Noted Time PHQ-9 Depression Total Score: 24 025 10:48 AM EST documented as of this encounter Care Teams Gluing Machine Feeder Relationship Specialty Start Date End Date Lois Gaming NP 230 [place] [address] PCP - General Family Medicine 10/05/23 Kuldeep Matthews, BAM 505 [place] [address] Registered Nurse Family Medicine 10/13/24 Deepika Pelletier 10/13/24 [facility] 11/11/23 documented as of this encounter
--- OUTSIDE RECORDS SUMMARY | 2024-11-03 08:54 | XMS_ITS | Encounter Summary ---
Author Organization [employer] Address [address] [facility] 7t [place] [address] Care Team Providers Care Bus And Rail Operator Name Role Phone Lois Gaming NP Primary Care Provider [phone] Kuldeep Matthews RN Unavailable [phone] Deepika Pelletier Unavailable Reason for Visit * Reason Comments Med Refill Encounter Details Date Type Department Care Team ([facility] st Contact Info) Description 02/18/2024 Refill [facility] MEDICINE 230 [place], [place] [phone] Lois Gaming NP 230 [place], [place] [phone] Encounter for management of wound VAC Social [...] Description 12/30/2024 1:45 PM EST Office Visit [address] [address] Lois Gaming NP [address] [place] [address] 01/15/2025 9:00 AM EST Clinical Support [address] [address] Deborah Logan RN documented as of this encounter Visit Diagnoses Diagnosis Encounter for management of wound VAC documented in this encounter Additional Health Concerns Assessment Noted Time PHQ-9 Depression Total Score: 23 024 3:28 PM EST documented as of this encounter Care Teams Bus And Rail Operator Relationship Specialty Start Date End Date Lois Gaming NP 230 [place] [address] PCP - General Family Medicine 10/05/23 Kuldeep Matthews, BAM [address] [place] [address] Registered Nurse Family Medicine 10/13/24 Deepika Pelletier 10/13/24 [facility] 11/11/23 documented as of this encounter
--- OUTSIDE RECORDS SUMMARY | 2024-11-03 08:54 | XMS_ITS | Encounter Summary ---
Author Organization [employer] Address 75 [facility] 7t [place] [address] Care Team Providers Care Composition Worker Name Role Phone Lois Gaming NP Primary Care Provider Kuldeep Matthews RN Unavailable [phone] Deepika Pelletier Unavailable Reason for Visit * Reason Onset Date Comments PT-1 10/08/2024 Encounter Details Date Type Department Care Team (Late st Contact Info) Description 10/08/2024 Telephone [facility] MEDICINE 230 [place], [place] [phone] Lois Gaming NP 230 [place], [place] [phone] PT-1 Social History Tobacco Use Types Packs/Day [...] Y/N: Yes Provider name or facility name: [facility] Facility Address: [address] [place] [address] Escort needed: Y/N: No Do you have a wheelchair: Y/N: No If yes- Manual or electric: N/A Visits: Twice a week documented in this encounter Plan of Treatment Upcoming Encounters Date Type Department Care Team (Late st Contact Info) Description 12/30/2024 1:45 PM EST Office Visit [facility] MEDICINE [address] [place] [address] Lois Gaming NP 230 [place] [address] 01/15/2025 9:00 AM EST Clinical Support [address] [address] Deborah Logan RN documented as of this encounter Visit Diagnoses Not on filedocumented in this encounter Additional Health Concerns Assessment Noted Time PHQ-9 Depression Total Score: 24 025 10:48 AM EST documented as of this encounter Care Teams Composition Worker Relationship Specialty Start Date End Date Lois Gaming NP 230 [place] [address] PCP - General Family Medicine 10/05/23 Kuldeep Matthews, BAM [address] [place] [address] Registered Nurse Family Medicine 10/13/24 Deepika Pelletier 10/13/24 [facility] 11/11/23 documented as of this encounter
--- OUTSIDE RECORDS SUMMARY | 2024-11-03 08:54 | XMS_ITS | Encounter Summary ---
Author Organization [employer] Address 75 [facility] 7t [place] [address] Care Team Providers Care Access Manager Name Role Phone Dillon Alcantara Primary Care Provider Unavail able Kristi BaeP Primary Care Provider [phone] Lois Gaming NP Primary Care Provider [phone] Kuldeep Matthews RN Unavailable [phone] Deepika Pelletier Unavailable Reason for Visit * Reason Comments Med Refill Encounter Details Date Type Department Care Team (Late st Contact Info) Description 06/22/[address] [facility] MEDICINE 230 [place] [address] Dillon Alcantara AGNP Chronic low back pain, [...] Description 12/30/2024 1:45 PM EST Office Visit [address] [address] Lois Gaming NP [address] [place] [address] 01/15/2025 9:00 AM EST Clinical Support [address] [address] Deborah Logan, BAM documented as of this encounter Visit Diagnoses Diagnosis Chronic low back pain, unspecified back pain laterality, unspecified whether sciatica present documented in this encounter Additional Health Concerns Assessment Noted Time PHQ-9 Depression Total Score: 17 023 9:10 AM EST documented as of this encounter Care Teams Access Manager Relationship Specialty Start Date End Date Dillon Alcantara AGNP PCP - General Family Medicine 01/05/22 10/15/22 Kristi Bae FNP [address] [place] [address] PCP - General Family Medicine 10/16/22 10/04/23 Lois Gaming NP [address] [place] [address] PCP - General Family Medicine 10/05/23 Kuldeep Matthews, RN [address] [place] [address] Registered Nurse Family Medicine 10/13/24 Deepika Pelletier 10/13/24 [facility] 11/11/23 documented as of this encounter
--- OUTSIDE RECORDS SUMMARY | 2024-11-03 08:54 | XMS_ITS | Encounter Summary ---
Author Organization [employer] Address 75 [facility] 7t [place] [address] Care Team Providers Care Wet Washer Machine Name Role Phone Dillon Alcantara AGNMarlon Primary Care Provider Unavail able Kristi BaeP Primary Care Provider [phone] Lois Gaming NP Primary Care Provider [phone] Kuldeep Matthews RN Unavailable [phone] Deepika Pelletier Unavailable Reason for Visit * Reason Comments Med Refill Encounter Details Date Type Department Care Team (Late st Contact Info) Description 02/22/2022 Refill [facility] MEDICINE 230 [place], [place] [phone] Mireya Andersen MD 230 [place], [place] [phone] Numbness of upper extremity (Primary Dx); Low [...] Description 12/30/2024 1:45 PM EST Office Visit [address] [address] Lois Gaming, SHANNA 230 [place] [address] 01/15/2025 9:00 AM EST Clinical Support [address] [address] Deborah Logan, BAM documented as of this encounter Visit Diagnoses Diagnosis Numbness of upper extremity- Primary Low vitamin D level documented in this encounter Additional Health Concerns Assessment Noted Time PHQ-9 Depression Total Score: 17 023 9:10 AM EST documented as of this encounter Care Teams Wet Washer Machine Relationship Specialty Start Date End Date Dillon Alcantara AGNP PCP - General Family Medicine 01/05/22 10/15/22 Kristi Bae FNP 230 [place] [address] PCP - General Family Medicine 10/16/22 10/04/23 Lois Gaming NP 230 [place] [address] PCP - General Family Medicine 10/05/23 Kuldeep Matthews, RN [address] [place] [address] Registered Nurse Family Medicine 10/13/24 Deepika Pelletier 10/13/24 [facility] 11/11/23 documented as of this encounter
--- OUTSIDE RECORDS SUMMARY | 2024-11-03 08:54 | XMS_ITS | Encounter Summary ---
Author Organization [employer] Address 75 [facility] 7t [place] [address] Care Team Providers Care Information Systems Security Specialist Name Role Phone Dillon Alcantara AGNMarlon Primary Care Provider Unavail able Kristi aBeP Primary Care Provider [phone] Lois Gaming NP Primary Care Provider [phone] Kuldeep Matthews RN Unavailable [phone] Deepika Pelletier Unavailable Reason for Visit * Reason Comments Med Refill Encounter Details Date Type Department Care Team (Late st Contact Info) Description 02/22/[address] [facility] MEDICINE 230 [place] [address] Kaylynn Whiting MD 505 [place] [address] Chronic pain of both knees Social History [...] Description 12/30/2024 1:45 PM EST Office Visit [address] [address] Lois Gaming, SHANNA [address] [place] [address] 01/15/2025 9:00 AM EST Clinical Support [address] [address] Deborah Logan, BAM documented as of this encounter Visit Diagnoses Diagnosis Chronic pain of both knees documented in this encounter Additional Health Concerns Assessment Noted Time PHQ-9 Depression Total Score: 17 023 9:10 AM EST documented as of this encounter Care Teams Information Systems Security Specialist Relationship Specialty Start Date End Date Dillon Alcantara AGNP PCP - General Family Medicine 01/05/22 10/15/22 Kristi Bae FNP [address] [place] [address] PCP - General Family Medicine 10/16/22 10/04/23 Lois Gaming NP [address] [place] [address] PCP - General Family Medicine 10/05/23 Kuldeep Matthews, RN [address] [place] [address] Registered Nurse Family Medicine 10/13/24 Deepika Pelletier 10/13/24 [facility] 11/11/23 documented as of this encounter
--- OUTSIDE RECORDS SUMMARY | 2024-11-03 08:54 | XMS_ITS | Encounter Summary ---
Author Organization [employer] Address 75 [facility] 7t [place] [address] Care Team Providers Care Jawbone Puller Name Role Phone Dillon Alcantara AGNMarlon Primary Care Provider Unavail able Kristi BaeP Primary Care Provider [phone] Lois Gaming NP Primary Care Provider [phone] Kuldeep Matthews RN Unavailable [phone] Deepika Pelletier Unavailable Reason for Visit * Reason Comments Med Refill Encounter Details Date Type Department Care Team (Late st Contact Info) Description 02/22/2022 Refill [facility] MEDICINE 230 [place] [address] Kaylynn Whiting MD 505 [place] [address] Chronic pain of both knees Social History [...] 12/30/2024 1:45 PM EST Office Visit [address] [address] Lois Gaming, SHANNA [address] [place] [address] 01/15/2025 9:00 AM EST Clinical Support [address] [address] Deborah Logan, BAM documented as of this encounter Visit Diagnoses Diagnosis Chronic pain of both knees documented in this encounter Additional Health Concerns Assessment Noted Time PHQ-9 Depression Total Score: 17 023 9:10 AM EST documented as of this encounter Care Teams Jawbone Puller Relationship Specialty Start Date End Date Dillon Alcantara AGNP PCP - General Family Medicine 01/05/22 10/15/22 Kristi Bae FNP [address] [place] [address] PCP - General Family Medicine 10/16/22 10/04/23 Lois Gaming NP [address] [place] [address] PCP - General Family Medicine 10/05/23 Kuldeep Matthews, RN [address] [place] [address] Registered Nurse Family Medicine 10/13/24 Deepika Pelletier 10/13/24 [facility] 11/11/23 documented as of this encounter
--- OUTSIDE RECORDS SUMMARY | 2024-11-03 08:54 | XMS_ITS | Encounter Summary ---
Author Organization [employer] Address 75 [facility] 7t [place] [address] Care Team Providers Care School Examiner Name Role Phone Dillon Alcantara Primary Care Provider Unavail able Kristi BaeP Primary Care Provider [phone] Lois Gaming NP Primary Care Provider [phone] Kuldeep Matthews RN Unavailable [phone] Deepika Pelletier Unavailable Reason for Visit * Reason Onset Date Comments Durable Medical Equipment 06/07/2022 Encounter Details Date Type Department Care Team (Late st Contact Info) Description 06/07/2022 Telephone [facility] MEDICINE 230 [place] [address] Dillon Alcantara AGNP Durable Medical Equipment Social [...] Logan RN - 06/15/2022 9:07 AM EDT 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 Any questions may contact phone # [phone]. documented in this encounter Plan of Treatment Upcoming Encounters Date Type Department Care Team (Late st Contact Info) Description 12/30/2024 1:45 PM EST Office Visit [address] [address] Lois Gaming NP 230 [place] [address] 01/15/2025 9:00 AM EST Clinical Support [address] [address] Deborah Logan RN documented as of this encounter Visit Diagnoses Not on filedocumented in this encounter Additional Health Concerns Assessment Noted Time PHQ-9 Depression Total Score: 17 023 9:10 AM EST documented as of this encounter Care Teams School Examiner Relationship Specialty Start Date End Date Dillon Alcantara AGNP PCP - General Family Medicine 01/05/22 10/15/22 Kristi Bae FNP 230 [place] [address] PCP - General Family Medicine 10/16/22 10/04/23 Lois Gaming NP 230 [place] [address] PCP - General Family Medicine 10/05/23 Kuldeep Matthews, BAM [address] [place] [address] Registered Nurse Family Medicine 10/13/24 Deepika Pelletier 10/13/24 [facility] 11/11/23 documented as of this encounter
--- OUTSIDE RECORDS SUMMARY | 2024-11-03 08:54 | XMS_ITS | Clinical Summary ---
Author Organization [employer] Address [address] [place] [address] Care Team Providers Care Upset Welding Machine Operator Name Role Phone Lois Gaming NP Primary Care Provider [phone] Kuldeep Matthews RN Unavailable [phone] Deepika Pelletier Unavailable Allergies No known active allergies Medications mirtazapine (Remeron) 45 MG tablet Take 45 mg by mouth at bedtime. Active rOPINIRole (Requip) 1 MG tablet Take 1 mg by mouth at bedtime. 022 Active sertraline (Zoloft) 100 MG tablet Active albuterol 108 (90 Base) MCG/ACT inhaler 1 puff as needed 18 g 11 023 Active Additional Information Patient not taking.Reported on 10/23/2024 ziprasidone (Geodon) 40 MG capsule TAKE 1 CAPSULE BY MOUTH EVERY EVENING WITH MEALS Active omeprazole (PriLOSEC) [address] capsule Take 20 mg by mouth Once per day. Active Blood Glucose Monitoring Suppl (FreeStyle Lite) deviceIndications: Type 2 diabetes 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, without long-term current use of insulin (HCC) Inject 1 each under the skin 2 times daily. 1 each Active Additional Information Patient not taking.Reported on 10/23/2024 insulin lispro (HumaLOG Rhys KwikPen) 100 UNIT/ML [...] 2 diabetes mellitus without complication, unspecified whether custodial insulin use USE TO TEST TWICE DAILY 100 each 5 024 Active Additional Information Patient not taking.Reported on 10/23/2024 FreeStyle lancetsIndications :Type 2 diabetes mellitus without complication, unspecified whether watcher automat long goods insulin use 1 each by Other route 2 times daily. 100 each 11 024 Active Continuous Glucose Electric Detector Operator (FreeStyle Get 3 [place]) deviceIndications: Type 2 diabetes mellitus treated with insulin ([facility]) 1 each Once per day. Use as directed for CGM 1 each 025 Active Continuous Glucose Sensor (FreeStyle Get 3 Plus Sensor) miscIndications:Ty pe 2 diabetes mellitus treated with insulin ([facility]) 1 each every 15 days. Apply 1 every 15 days as directed for CGM 2 each 025 Active glucose blood (FreeStyle Precision Neal Test) test stripIndications:T ype 2 diabetes mellitus treated with insulin ([facility]) Use to test blood sugar 4 times [...] edema, without long-term current use of insulin ([facility]),Type 2 diabetes mellitus treated with insulin ([facility]) 1 Pad 6 (six) times a day. 300 each 1 025 Active docusate sodium (Colace) 100 MG capsule TAKE 1 CAPSULE BY MOUTH TWICE DAILY 180 capsule 025 Active Asmanex HFA 200 MCG/ACT aerosolIndications :Mild persistent asthma without complication INHALE 1 PUFF BY MOUTH TWICE DAILY 13 g 3 Active insulin glargine (Lantus) 100 UNIT/ML injection Inject 20 Units under the skin 2 times daily. 10 mL 12 025 08/22 Active Alcohol Swabs (Alcohol Prep) 70 % padsIndications:Ty pe 2 diabetes mellitus without complication, unspecified whether custodial insulin use USE 1 SWAB BY TOPICAL ROUTE TWICE [...] glass of water 46 tablet 2 Active Tirzepatide-Weight Management (Zepbound) 7.5 MG/0.5ML solution auto-injectorIndic ations:Type 2 diabetes 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, without long-term current use of insulin (HCC) Inject 0.5 mL (7.5 mg) under the skin 1 (one) time per week for 28 days. INJECT ONE PEN (=7.5MG) SUBCUTANEOUSLY ONCE A WEEK DIRECTED 2 mL 025 11/04 Active Additional Information Patient not taking.Reported on 10/23/2024 ibuprofen 400 MG tablet TAKE 1 TABLET BY MOUTH EVERY 8 HOURS FOR 14 DAYS Active lidocaine (Lidoderm) 5 % patch APPLY 1 PATCH TOPICALLY EVERY DAY. LEAVE ON MOST PAINFUL AREA FOR UP TO 12 HOURS Active oxyCODONE (Oxy-IR) 5 MG immediate release capsule TAKE 1 CAPSULE BY MOUTH EVERY 8 HOURS FOR 4 DAYS NEEDED FOR PAIN Active naloxone (Narcan) 4 mg/0.1 mL nasal sprayIndications:L charity term (current) use of opiate analgesic as directed 2 each 2 025 Active cholecalciferol VITAMIN D (Vitamin D-3) 50 MCG (1999 UT) capsuleIndications :Low vitamin D level TAKE 1 CAPSULE BY MOUTH EVERY DAY 90 capsule 1 Active cyanocobalamin (Vitamin B-12) 1000 MCG tablet TAKE 1 TABLET BY MOUTH EVERY MORNING 90 tablet 1 Active traMADol (Ultram) 50 MG tabletIndications: Chronic low back pain, unspecified back pain laterality, unspecified whether sciatica present TAKE 1 TO 2 TABLETS BY MOUTH EVERY 6 HOURS NEEDED FOR SEVERE PAIN 224 tablet 025 11/25 Active lisinopril 20 MG tabletIndications: Essential hypertension TAKE 1 TABLET(20 MG) BY MOUTH IN THE MORNING 90 tablet 1 Active Tirzepatide (Mounjaro) 2.5 MG/0.5ML solution auto-injector Inject 2.5 mg under the skin 1 (one) time per week. 2 mL 1 Active naloxone (Narcan) 4 mg/0.1 mL nasal spray as directed 2 each 2 023 10/15 Discontinued( Reorder (will not trigger notification to Pharmacy)) cholecalciferol VITAMIN D (Vitamin D-3) 50 MCG (1999 UT) capsuleIndications :Low vitamin D level TAKE 1 CAPSULE BY MOUTH EVERY DAY 90 capsule 1 025 10/20 Discontinued lisinopril 20 MG tabletIndications: Essential hypertension TAKE 1 TABLET(20 MG) BY MOUTH IN THE MORNING 90 tablet 1 025 10/27 Discontinued cyanocobalamin (Vitamin B-12) 1000 MCG tablet TAKE 1 TABLET BY MOUTH EVERY MORNING 90 tablet 1 025 10/20 Discontinued Zepbound 7.5 MG/0.5ML solution auto-injectorIndic ations:Type 2 diabetes 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, without long-term current use of insulin ([facility]) INJECT ONE PEN (=7.5MG) SUBCUTANEOUSLY ONCE A [...] before September 30, 2024. 224 tablet 025 10/24 Discontinued Active Problems Problem Noted Date Diagnosed Date Morbid obesity ([facility]) 09/26/2024 Iron deficiency anemia 09/26/2024 Type 2 [...] groin, prn topical therapies as rx'd below 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 04/05 Exercise [...] pain Colon cancer screening 11/07/2023 Necrotizing fasciitis ([facility]) 11/03/2023 Assessment & Plan (12/25/2023 11:08 PM [...] established as well as wound care Sepsis ([facility]) 09/14/2023 Assessment & Plan (09/14/2023 9:51 AM EDT): I presented case to [place] emergency room Im sending patient via ambulance [...] of LDL-C. Christiano AVELAR et al. ABBY. 2013;310(19): 2622-5318 (http://education.Geotender/faq/CZI139) Chol/HDLC Ratio <5.0 (calc) 3.4 3.3 3.0 [...] on mounjaro, improved glucose control Referral to tray checker Follow up in 3 months sooner prn [...] Encounters Date Type Department Care Team Description 10/29/2024 Orders Only [facility] [address] [place] [address] Lois Gaming NP Type 2 diabetes mellitus with hyperglycemia, with long-term current use of insulin ([facility]) (Primary Dx) 10/27/2024 Plan of Care Documentation [address] [address] 10/27/[address] [address] Lois Gaming NP call back request 10/27/[address] [address] Lois Gaming NP Med Refill 10/27/[address] [address] Lois Gaming NP Med Refill 10/26/[address] [address] Lois Gaming NP Essential hypertension 10/24/[address] [address] Lois Gaming NP Prior Authorization 10/24/[address] [address] Lois Gaming NP Chronic low back pain, unspecified back pain laterality, unspecified whether sciatica present 10/23/2024 Patient Outreach [address] [address] Lois Gaming NP Care Management (C3CM- Initial assessment/enrollment) 10/22/2024 Patient Outreach [address] [address] Lois Gaming NP Care Coordination (C3 CM-W Deepika Pelletier telephone call outreach) 10/18/[address] [address] Lois Gaming NP Low vitamin D level 10/17/2024 Outside Procedure [facility] [place] [address] Rich, Anitha, OD Presbyopia (Primary Dx) 10/17/[address] [address] Lois Gaming NP December Recall 10/15/2024 9:00 AM EDT Clinical Support [address] [address] Deborah Logan, RN 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 (Primary Dx) 10/15/[address] [address] Deborah Logan, RN snf (current) use of opiate analgesic (Primary Dx) 10/15/2024 Travel 10/13/2024 Patient Outreach [address] [address] Lois Gaming NP Care Coordination ([facility]) 10/13/2024 Patient Outreach [address] [address] Lois Gaming NP Care Coordination ([facility] chart review) 10/13/2024 Patient Outreach [address] [address] Lois Gaming NP Care Coordination (C3- chart review) 10/13/2024 Patient Outreach [address] [address] Lois Gaming NP 10/12/2024 Orders Only [facility] External Provider, [facility] 10/08/2024 Patient Outreach [address] [address] Lois Gaming NP Care Coordination (C3 [facility] outreach pt 1) 10/08/[address] [address] Lois Gaming NP PT-1 10/08/2024 Travel 10/07/2024 Telephone [facility] [address] [place] [address] Lois Gaming NP Prior Authorization 10/07/2024 Refill [facility] [address] [place] [address] Lois Gaming NP Type 2 diabetes 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, without long-term current use of insulin ([facility]) 09/26/2024 2:30 PM EDT Office Visit [facility] [address] [place] [address] Lois Gaming NP Morbid obesity ([facility]) (Primary Dx); Type 2 diabetes 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, without long-term current use of insulin ([facility]); Numbness of upper extremity; Other iron deficiency anemia; Obstructive sleep apnea syndrome; Chronic low back pain, unspecified back pain laterality, unspecified whether sciatica present 09/26/2024 10:15 AM EDT Office Visit [facility] [address] [place] [address] Rich, Anitha, OD Hypermetropia, right (Primary Dx) 09/25/2024 Telephone [facility] [address] [place] [address] Lois Gaming NP Chart Prep 09/22/2024 Refill [facility] [address] [place] [address] Lois Gaming NP Numbness of upper extremity 09/19/2024 Travel 09/08/2024 Refill [facility] [address] [place] [address] Lois Gaming NP Type 2 diabetes 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, without long-term current use of insulin ([facility]) 09/07/2024 Refill [facility] [address] [place] [address] Kadie Villalpando MD 09/01/2024 Refill [facility] [address] [place] [address] Lois Gaming NP Chronic low back pain, unspecified back pain laterality, unspecified whether sciatica present 08/29/2024 Refill [facility] [address] [place] [address] Lois Gaming NP Intertrigo 08/27/2024 2:00 PM EDT Office Visit [facility] [address] [place] [address] Rich, Anitha, OD Diabetes type 2, no ocular involvement ([facility]) (Primary Dx); White without pressure of peripheral retina of both eyes; Presbyopia 08/27/2024 Travel 08/26/2024 Telephone [facility] [address] [place] [address] Lois Gaming NP 08/26/2024 Refill [facility] [address] [place], [place] [phone] Lois Gaming NP Type 2 diabetes mellitus without complication, unspecified whether custodial insulin use ([facility]) 08/22/[address] [address] Lois Gaming NP [address] [address] Lois Gaming NP Low vitamin D level 08/14/2024 Patient Outreach [address] [address] Lois Gaming NP Care Coordination (CH[facility] outreach for SDOH PT-1 and food needs-referral completed /) 08/14/[address] [address] Lois Gaming NP PT1 08/11/[address] [address] Lois Gaming NP Medication Question 08/07/[address] [address] Lois Gaming NP from Last 3 Months Immunizations Immunization Administration [...] Description 12/30/2024 1:45 PM EST Office Visit [facility] [address] [place] [phone] Lois Gaming NP [address] [place] [address] 01/15/2025 9:00 AM EST Clinical Support [facility] [address] [place] [address] Deborah Logan, RN Health Maintenance Due Date [...] 01/21/2024, 02/0 08/2023, 03/20/2022, Additional history exists Eye Exam 08/27/2025 08/27/2024, 08/06, 08/27/2024, Additional history exists Tobacco Screening 09/26/2025 09/26/2024 Disability Screening 10/08/2025 10/08/2024 SDOH Screening 10/13/2025 10/13/2024 DTaP/Tdap/Td Vaccines (3 - Td or Tdap) [...] Name Priority Date/Time Associated Diagnosis Comments POCT KIMMY-14 URINE DRUG SCREEN Routine 10/15/2024 9:12 AM EDT 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 CT SOFT TISSUE NECK W CONTRAST Routine 10/12/2024 7:[address] SHOULDER LEFT W CONTRAST Routine 10/12/2024 7:14 PM EDT LACTIC ACID Routine 10/12/2024 5:14 PM EDT BLOOD CULTURE (FIRST) Routine 10/12/2024 5:14 PM EDT BLOOD CULTURE (SECOND) Routine 10/12/2024 5:14 PM EDT XR SHOULDER 2+ VIEWS LEFT Routine 10/12/2024 4:25 PM EDT POCT GLUCOSE Routine 09/26/2024 2:47 PM EDT Type 2 diabetes 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, without long-term current use of insulin ([facility]) HEMOGLOBIN A1C Routine 07/17/2024 8:49 AM EDT Type 2 diabetes 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, without long-term current use of insulin ([facility]) LIPID PANEL, STANDARD Routine 01/21/2024 8:37 AM EST Type 2 diabetes mellitus without complication, unspecified whether custodial insulin use (CMS/HCC) HEPATITIS C AB W/REFL TO HCV RNA, QN, PCR Routine 03/20/2022 8:20 AM EST HIV 1 RNA, QN PCR W/RFL REBECA (RTI,PI,INTEGRASE) Routine 03/20/2022 8:20 AM EST HM COLONOSCOPY Routine 03/14/2022 ALBUMIN, RANDOM URINE W/CREATININE Routine 01/26/2021 8:20 AM EST from Last 3 Months or Most Recently Relevant to Health Maintenance Results * POCT KIMMY-14 Urine Drug Screen (10/15/2024 9:12 AM EDT) THC Positive Negative Cocaine Screen, Urine Negative Negative Opiate Screen, Urine Negative Negative Methamphetamine Screen Urine Negative Negative Amphetamine Screen, Urine Negative Negative Benzodiazepines Screen, Urine Negative Negative Barbiturate Screen, Urine Negative Negative Methadone Screen, Urine Negative Negative Buprenophine Screen, Urine Negative Negative TCA, Urine Negative Negative MDMA Urine Negative Negative ng/mL Oxycodone Screen, Urine Positive Negative Phencyclidine (PCP), Urine Negative Negative Propoxyphene, Urine Negative Negative Fentanyl, Urine Negative Negative Urine Urine specimen obtained by clean catch procedure / Unknown 10/15/2024 9:12 AM EDT Deborah Steen RN - 10/15/2024 9:12 AM EDT UTOX cup Lot#[id number] Exp. 11/11/25 Internal Pass Control Lois Gaming NP POINT OF CARE TEST ENTER/EDIT OR DERABLES Final Result * CT Soft Tissue Neck w/ Contrast (10/12/2024 7:21 PM EDT) Anatomical Region Laterality Modality Head, Neck Computed Tomogra phy 10/12/2024 7:21 PM EDT Narrative 10/12/2024 7:22 PM EDT [place] [address] [address] Scan Report Signed Patient: Kodi Cummings MR#: [id number] : 1975 Acct:[id number] Age/Sex: 49 / M ADM Date: 10/12/24 Loc: HO.ED Attending Dr: Ordering Physician: Isabel Stanley DO Date of Service: 10/12/24 Procedure(s): CT soft tissue neck w IV con Accession Number(s): [id number] cc: Isabel Stalney DO; Lois Gaming NANOSYSTEMS ENGINEER Report Number: [id number]: Total DLP = 831.00 mGy-cm Reason for Exam: left sided neck swelling CLINICAL HISTORY: left sided neck swelling CT soft tissue neck with contrast Comparison: None provided Findings: Images associated with a left shoulder CT were included with this image set. These are reported separately. The visualized intracranial contents are unremarkable. No prevertebral fluid. Epiglottis is within normal limits. Pharyngeal mucosal space and parapharyngeal fat are normal. Apparent focal narrowing of the airway at the level of the palatine tonsils is likely transient and incidental. Salivary glands are unremarkable. No sialoliths. Thyroid gland is unremarkable. No consolidation at the lung apices. There is a tiny cortical defect and adjacent tiny bone fragments associated with the posterior inferior cortex of the medial aspect of the left clavicle with adjacent soft tissue edema ( series 6 images [id number] ). Additional tiny bone fragment adjacent to the anteromedial aspect of the left 1st rib. IMPRESSION: 1. There are tiny avulsion fractures of the left clavicle and left 1st rib. These may be at the level of the costoclavicular ligament. This document has been electronically signed by: Aury Cantu MD on 10/12/2024 19:21:07 Dictated By: Aury Cantu MD Signed By: <Electronically signed by Aury Cantu MD in OV> 10/12/241920 DD/ 20 TD/TT: 10/12/241920 Injection Machine Operator: Procedure Note Donotuseinterpreter, Image - 10/12/[address] [address] [address] Scan Report Signed Patient: Kodi CummingsMR#: [id number] : 1975Acct:[id number] Age/Sex: 49 / MADM Date: 10/12/24 Loc: HO.ED Attending Dr: Ordering Physician: Isabel Stanley DO Date of Service: 10/12/24 Procedure(s): CT soft tissue neck w IV con Accession Number(s): [id number] cc: Isabel Stanley DO; Lois Gaming NANOSYSTEMS ENGINEER Report Number: [id number]: Total DLP = 831.00 mGy-cm Reason for Exam: left sided neck swelling CLINICAL HISTORY: left sided neck swelling CT soft tissue neck with contrast Comparison: None provided Findings: Images associated with a left shoulder CT were included with this image set. These are reported separately. The visualized intracranial contents are unremarkable. No prevertebral fluid. Epiglottis is within normal limits. Pharyngeal mucosal space and parapharyngeal fat are normal. Apparent focal narrowing of the airway at the level of the palatine tonsils is likely transient and incidental. Salivary glands are unremarkable. No sialoliths. Thyroid gland is unremarkable. No consolidation at the lung apices. There is a tiny cortical defect and adjacent tiny bone fragments associated with the posterior inferior cortex of the medial aspect of the left clavicle with adjacent soft tissue edema ( series 6 images [id number] ). Additional tiny bone fragment adjacent to the anteromedial aspect of the left 1st rib. IMPRESSION: 1. There are tiny avulsion fractures of the left clavicle and left 1st rib. These may be at the level of the costoclavicular ligament. This document has been electronically signed by: Aury Cantu MD on 10/12/2024 19:21:07 Dictated By: Aury Cantu MD Signed By: <Electronically signed by Aury Cantu MD in OV> 10/12/241920 DD/ 20 TD/TT: 10/12/241920 Injection Machine Operator: [facility] External Provider IMG CT PROCEDURES Edited Result - Final * CT Shoulder Left w/Contrast (10/12/2024 7:14 PM EDT) Anatomical Region Laterality Modality Computed Tomogra phy 10/12/2024 7:14 PM EDT Narrative 10/12/2024 7:15 PM EDT [address] [address] [address] Scan Report Signed Patient: Kodi Cummings MR#: [id number] : 1975 Acct:[id number] Age/Sex: 49 / M ADM Date: 10/12/24 Loc: HO.ED Attending Dr: Ordering Physician: Isabel Stanley DO Date of Service: 10/12/24 Procedure(s): CT shoulder LT w IV con Accession Number(s): [id number] cc: Isabel Stanley DO; Lois Gaming NANOSYSTEMS ENGINEER Report Number: [id number]: Total DLP = 409.00 mGy-cm Reason for Exam: shoulder CLINICAL HISTORY: shoulder --- Additional Notes or Special Instructions: left shoulder pain. tender to ROM CT left shoulder with contrast Comparison: 10/12/2024 Findings: Images associated with a CT soft tissue neck examination were included with this image set. These are reported separately. There is no fracture or dislocation. There is no shoulder effusion. There are mild arthritic changes. There is no soft tissue mass, hematoma or radiopaque foreign body. The visualized left lung is unremarkable. Impression: 1. No acute bony abnormality. This document has been electronically signed by: Aury Cantu MD on 10/12/2024 19:14:12 Dictated By: Aury Cantu MD Signed By: <Electronically signed by Aury Cantu MD in OV> 10/12/241914 DD/ 13 TD/TT: 10/12/241913 Injection Machine Operator: Procedure Note Donotuseinterpreter, Image - 10/12/[address] [address] [address] Scan Report Signed Patient: Kodi CummingsMR#: [id number] : 1975Acct:[id number] Age/Sex: 49 / MADM Date: 10/12/24 Loc: HO.ED Attending Dr: Ordering Physician: Isabel Stanley DO Date of Service: 10/12/24 Procedure(s): CT shoulder LT w IV con Accession Number(s): [id number] cc: Isabel Stanley DO; Lois Gaming NANOSYSTEMS ENGINEER Report Number: [id number]: Total DLP = 409.00 mGy-cm Reason for Exam: shoulder CLINICAL HISTORY: shoulder --- Additional Notes or Special Instructions:left shoulder pain. tender to ROM CT left shoulder with contrast Comparison: 10/12/2024 Findings: Images associated with a CT soft tissue neck examination were included with this image set. These are reported separately. There is no fracture or dislocation. There is no shoulder effusion. There are mild arthritic changes. There is no soft tissue mass, hematoma or radiopaque foreign body. The visualized left lung is unremarkable. Impression: 1. No acute bony abnormality. This document has been electronically signed by: Aury Cantu MD on 10/12/2024 19:14:12 Dictated By: Aury Cantu MD Signed By: <Electronically signed by Aury Cantu MD in OV> 10/12/241914 DD/ 13 TD/TT: 10/12/241913 Injection Machine Operator: [facility] External Provider IMG CT PROCEDURES Edited Result - Final * Blood Culture (First) (10/12/2024 5:14 PM EDT) Blood Venous blood specimen / Unknown 10/12/2024 5:14 PM EDT 10/12/2024 5:18 PM EDT Comment:Blood Narrative [facility] - 10/17/2024 7:18 PM EDT Blood Culture (First) No growth after 5 days. Specimen Source: Blood Generic External Data Provider LAB MICROBIOLOGY - GENERAL ORDERABLES Final Result [facility] [address] [place] [phone] * Blood Culture (Second) (10/12/2024 5:14 PM EDT) Blood Venous blood specimen / Unknown 10/12/2024 5:14 PM EDT 10/12/2024 5:18 PM EDT Comment:Blood Narrative [facility] - 10/17/2024 7:18 PM EDT Blood Culture (Second) No growth after 5 days. Specimen Source: Blood Generic External Data Provider LAB MICROBIOLOGY - GENERAL ORDERABLES Final Result Performing Organization Address [facility] Co de Phone Number [facility] [address] [place] [phone] * Lactic Acid (10/12/2024 5:14 PM EDT) Lactic Acid 1.0 0.5 - 2.0 mmol/L [facility] 10/12/2024 5:14 PM EDT 10/12/2024 5:18 PM EDT Generic External Data Provider LAB BLOOD ORDERAB LES Final Result Performing Organization Address [facility] de Phone Number [facility] [address] [place] [address] [phone] * XR Shoulder 2+ Views Left (10/12/2024 4:25 PM EDT) Anatomical Region Laterality Modality Upper Extremities, Shoulder Left Radi ographic Imaging 10/12/2024 4:25 PM EDT Narrative 10/12/2024 4:26 PM EDT [address] [address] XRay Report Signed Patient: Kodi Cummings MR#: [id number] : 1975 Acct:[id number] Age/Sex: 49 / M ADM Date: 10/12/24 Loc: .ED Attending Dr: Ordering Physician: Nico Hoyt Date of Service: 10/12/24 Procedure(s): XR shoulder LT min 2V Accession Number(s): [id number] cc: Nico Hoyt; Graef,Lois B NANOSYSTEMS ENGINEER Reason for Exam: pain CLINICAL HISTORY: pain 4 view left shoulder Comparison: None provided Findings: Bones intact. No dislocations. Very mild arthritic change. No erosions. No radiopaque foreign body. IMPRESSION: 1. No acute findings This document has been electronically signed by: Aury Cantu MD on 10/12/2024 16:25:19 Dictated By: Aury Cantu MD Signed By: <Electronically signed by Aury Cantu MD in OV> 10/12/241624 DD/ 24 TD/TT: 10/12/241624 Injection Machine Operator: Procedure Note Donotuseinterpreter, Image - 10/12/2024 [place] [address] XRay Report Signed Patient: Kodi CummingsMR#: [id number] : 1975Acct:[id number] Age/Sex: 49 / MADM Date: 10/12/24 Loc: HO.ED Attending Dr: Ordering Physician: Nico Hoyt Date of Service: 10/12/24 Procedure(s): XR shoulder LT min 2V Accession Number(s): [id number] cc: Nico Hoyt; Lois Gaming NANOSYSTEMS ENGINEER Reason for Exam: pain CLINICAL HISTORY: pain 4 view left shoulder Comparison: None provided Findings: Bones intact. No dislocations. Very mild arthritic change. No erosions. No radiopaque foreign body. IMPRESSION: 1. No acute findings This document has been electronically signed by: Aury Cantu MD on 10/12/2024 16:25:19 Dictated By: Aury Cantu MD Signed By: <Electronically signed by Aury Cantu MD in OV> 10/12/241624 DD/ 24 TD/TT: 10/12/241624 Injection Machine Operator: [facility] External Provider IMG XR PROCEDURES Edited Result - Final * POCT Glucose (09/26/2024 2:47 PM EDT) Glucose Blood, POC 193 60 - 200 mg/dL QC Media Lot # [id number] Lot# Expiration Date Blood Capillary blood specimen / Unknown 09/26/2024 2:47 PM EDT Lois Gaming NP POINT OF CARE TEST ENTER/EDIT OR DERABLES Final Result * (ABNORMAL) Hemoglobin A1c (07/17/2024 8:49 AM EDT) Hemoglobin A1c 7.7(H) <6.0 % [facility] Comment:Hemoglobin A1C Refer ence Range Adults: 4.8 - 6.0 % Non diabetic: < 6.0 % Goal: < 7.0 %Additional Action Suggested: > 8.0 %Note: Hemoglobin A1c results are invalid for patients with abnormal amounts of HbF. Blood transfusions may impact the HbA1c concentration in the patient sample. Estimated Average Glucose 174 mg/dL [facility] Comment:eAG = Estimated ave rage glucose which is %A1C expressed asaverage glucose, using the formula of the I8P-OdwaozbYrgukrx Glucose study (ADAG), Diabetes Care, Vol.31,#8,Sep. 2007 Blood Venous blood specimen / Unknown 07/17/2024 8:49 AM EDT 07/17/2024 11:10 AM EDT Lois Gamign NP LAB BLOOD ORDERABLES Final Resul t [facility] [place] [address] [phone] * Lipid Panel, Standard (01/21/2024 8:37 AM EST) Triglycerides 144 <150 mg/dL [facility] Comment:Desirable Triglyceri de: less than 150 mg/dLBorderline High Triglyceride 150-199 mg/dLHigh Triglyceride: 200-499 mg/dLVery High Triglyceride: greater than or equal to 5OO mg/dL Cholesterol 149 <200 mg/dL [facility] Comment:Desirable Cholestero l: less than 200 mg/dLBorderline High Cholesterol: 200-239 mg/dLHigh Cholesterol: greater than 239 mg/dL LDL Cholesterol Calculated 61 <100 mg/dL [facility] Comment:Desirable LDL: less than 100 mg/dLNear Optimal/Above Optimal LDL: 110- 129 mg/dLBorderline High LDL: 130-159 mg/dLHigh LDL: 160-189 mg/dLVery High LDL: greater than or equal to 190 mg/dL HDL Cholesterol 60 >40 mg/dL [facility] Comment:Desirable HDL: great er than 40 mg/dL Note: This HDL assay may give artificially low results in patients with liver disease. Blood Venous blood specimen / Unknown 01/21/2024 8:37 AM EST 01/21/2024 12:12 PM EST us Lois Gaming NANOSYSTEMS ENGINEER LAB BLOOD ORDERABLES Final Resul t [facility] [address] [place] [phone] * HIV-1 RNA, Quantitative, Real-Time PCR with Reflex to Genotype (RTI, PI, Integrase) (03/20/2022 8:20 AM EST) Pathologist [facility] HIV 1 RNA, QN PCR NOT DETECTED copies/mL [facility], HIV 1 RNA, QN PCR NOT DETECTED Log copies/mL [facility], Comment: REFERENCE RANGE: NOT DETECTED copies/mL NOT DETECTED Log copies/mL This test was performed using Real-Time Polymerase Chain Reaction. Reportable range is 20 to 10,000,000 copies/mL (1.30-7.00 Log copies/mL). 03/20/2022 8:20 AM EST 03/20/2022 8:21 AM EST Narrative [facility] - 03/23/2022 8:05 PM EST FASTING:YES FASTING: YES us Dillon GREERP LAB BLOOD ORDERABLES Final Res ult [facility] [address], [place] [address] [facility] [facility], [address] [place] [address] * Hepatitis C Antibody with Reflex to HCV, RNA, Quantitative, Real-Time PCR (03/20/2022 8:20 AM EST) [facility] Hepatitis C Antibody NON-REACT TAY NON-REACT TAY [employer] [place] [employer]: [employer] Index 0.04 <1.00 [employer] [place] [employer]: [employer] Comment: HCV antibody was non-reactive. There is no laboratory evidence of HCV infection. In most cases, no further action is required. However, if recent HCV exposure is suspected, a test for HCV RNA (test code 63959) is suggested. For additional information please refer to http://education.[employer]/faq/TOG32k6 (This link is being provided for informational/ educational purposes only.) 03/20/2022 8:20 AM EST 03/20/2022 8:21 AM EST Narrative [facility] - 03/23/2022 8:05 PM EST FASTING:YES FASTING: YES Dillon Alcantara [facility] LAB BLOOD ORDERABLES Final Res ult [facility] [address] [facility], [facility], [place] [address] [employer] [place] [employer]: [employer] [address] ([address]) [place] [address] * Colonoscopy (03/14/2022) [facility] Colonoscopy Normal Normal Historical Provider HEALTH MAINTENANCE Final Result * ALBUMIN, RANDOM URINE W/CREATININE (01/26/2021 8:20 AM EST) [facility] Microalbumin Urine 0.2 See Note: mg/dL [facility] Comment: Reference Range: Reference Range [...] Creatinine, Urine 85 20 - 320 mg/dL [facility] 01/26/2021 8:20 AM EST Shannen Jefferson MD LAB URINE ORDERABLES Final R esult [facility] [address] from Last 3 Months or Most Recently Relevant to Health Maintenance Insurance [employer] C3 Care Teams Upset Welding Machine Operator Relationship Specialty Start Date End Date Lois Gaming NP [address] [place] [address] PCP - General Family Medicine 10/05/23 Kuldeep Matthews RN [address] [place] [address] [place] [address] Registered Nurse Family Medicine 10/13/24 Deepika Pelletier 10/13/24 [facility] 11/11/23
--- OUTSIDE RECORDS SUMMARY | 2024-11-03 08:54 | XMS_ITS | Encounter Summary ---
Author Organization [employer] Address [address] [facility] [address] 7t [place] [address] Care Team Providers Care Health Unit Coordinator Name Role Phone Lois Gaming NP Primary Care Provider [phone] Kuldeep Matthews RN Unavailable [phone] Deepika Pelletier Unavailable Encounter Details Date Type Department Care Team (Late st Contact Info) Description 10/29/2024 Orders Only [facility] [address] [place], [place] [phone] Lois Gaming NP [address] [place], [place] [phone] Type 2 diabetes mellitus with hyperglycemia, with long-term current use of insulin ([facility]) (Primary Dx) Social History Tobacco Use Types Packs/Day Years [...] the past 12 months, has t he [employer], gas, oil or water company threatened to [...] Description 12/30/2024 1:45 PM EST Office Visit [facility] [address] [place] [address] Lois Gaming NP [address] [place] [address] 01/15/2025 9:00 AM EST Clinical Support [facility] [address] [place] [address] Doreen, Deborah, RN documented as of this encounter Visit Diagnoses Diagnosis Type 2 diabetes mellitus with hyperglycemia, with long-term current use of insulin (HCC)- Primary documented in this encounter Additional Health Concerns Assessment Noted Time PHQ-9 Depression Total Score: 24 025 10:48 AM EST documented as of this encounter Care Teams Health Unit Coordinator Relationship Specialty Start Date End Date Lois Gaming NP [address] [place] [address] PCP - General Family Medicine 10/05/23 Kuldeep Matthews RN [address] [place] [address] Registered Nurse Family Medicine 10/13/24 Deepika Pelletier 10/13/24 [facility] 11/11/23 documented as of this encounter
--- OUTSIDE RECORDS SUMMARY | 2024-11-03 08:54 | XMS_ITS | Encounter Summary ---
Author Organization [employer] Address [address] [facility] [address] 7t [place] [address] Care Team Providers Care Waste Hand Name Role Phone Mekhi Lois OTERO Primary Care Provider [phone] Kuldeep Matthews RN Unavailable [phone] Deepika Pelletier Unavailable Reason for Visit * Reason Comments Med Refill Encounter Details Date Type Department Care Team ([facility] st Contact Info) Description 09/07/2024 Refill [facility] 230 [place], [place] [phone] Kadie Villalpando MD 230 [place], [place] [phone] Social History Tobacco Use Types Packs/Day Years [...] Description 12/30/2024 1:45 PM EST Office Visit [address] [address] Lois Gaming NP [address] [place] [address] 01/15/2025 9:00 AM EST Clinical Support [address] [address] Deborah Logan RN documented as of this encounter Visit Diagnoses Not on filedocumented in this encounter Additional Health Concerns Assessment Noted Time PHQ-9 Depression Total Score: 24 025 10:48 AM EST documented as of this encounter Care Teams Waste Hand Relationship Specialty Start Date End Date Lois Gaming NP 230 [place] [address] PCP - General Family Medicine 10/05/23 Kuldeep Matthews, BAM [address] [place] [address] Registered Nurse Family Medicine 10/13/24 Deepika Pelletier 10/13/24 [facility] [place] 11/11/23 documented as of this encounter
--- OUTSIDE RECORDS SUMMARY | 2024-11-03 08:54 | XMS_ITS | Encounter Summary ---
Author Organization [employer] Address [address] [facility] 7t [place] [address] Care Team Providers Care Sap Gatherer Name Role Phone Dillon Alcantara AGNMarlon Primary Care Provider Unavail able Kristi BaeP Primary Care Provider [phone] Lois Gaming NP Primary Care Provider [phone] Kuldeep Matthews RN Unavailable [phone] Deepika Pelletier Unavailable Reason for Visit * Reason Comments Med Refill Encounter Details Date Type Department Care Team (Late st Contact Info) Description 02/22/2022 Refill [facility] 230 [place] [address] Kaylynn Whiting MD 505 [place] [address] Chronic pain of both knees Social History [...] Description 12/30/2024 1:45 PM EST Office Visit [address] [address] Lois Gaming, SHANNA [address] [place] [address] 01/15/2025 9:00 AM EST Clinical Support [address] [address] Deborah Logan, BAM documented as of this encounter Visit Diagnoses Diagnosis Chronic pain of both knees documented in this encounter Additional Health Concerns Assessment Noted Time PHQ-9 Depression Total Score: 17 023 9:10 AM EST documented as of this encounter Care Teams Sap Gatherer Relationship Specialty Start Date End Date Dillon Alcantara AGNP PCP - General Family Medicine 01/05/22 10/15/22 Kristi Bae FNP [address] [place] [address] PCP - General Family Medicine 10/16/22 10/04/23 Lois Gaming NP [address] [place] [address] PCP - General Family Medicine 10/05/23 Kuldeep Matthews, RN [address] [place] [address] Registered Nurse Family Medicine 10/13/24 Deepika Pelletier 10/13/24 [facility] 11/11/23 documented as of this encounter
--- OUTSIDE RECORDS SUMMARY | 2024-11-03 08:54 | XMS_ITS | Encounter Summary ---
Author Organization [employer] Address 75 [facility] 7t [place] [address] Care Team Providers Care News Production Assistant Name Role Phone Kristi Bae Primary Care Provider [phone] Lois Gaming NP Primary Care Provider [phone] Kuldeep Matthews RN Unavailable [phone] Deepika Pelletier Unavailable Reason for Visit * Reason Comments Med Refill Encounter Details Date Type Department Care Team (Late st Contact Info) Description 09/12/2023 Refill [facility] 230 [place], [place] [phone] Kristi Bae FNP 230 [place], [place] [phone] Chronic low back pain, unspecified back pain [...] 12/30/2024 1:45 PM EST Office Visit [address] [address] Lois Gaming NP [address] [place] [address] 01/15/2025 9:00 AM EST Clinical Support [address] [address] Deborah Logan RN documented as of this encounter Visit Diagnoses Diagnosis Chronic low back pain, unspecified back pain laterality, unspecified whether sciatica present documented in this encounter Additional Health Concerns Assessment Noted Time PHQ-9 Depression Total Score: 22 024 10:32 AM EST documented as of this encounter Care Teams News Production Assistant Relationship Specialty Start Date End Date Kristi Bae FNP [address] [place] [address] PCP - General Family Medicine 10/16/22 10/04/23 Lois Gaming NP [address] [place] [address] PCP - General Family Medicine 10/05/23 Kuldeep Matthews, RN [address] [place] [address] [place] [address] Registered Nurse Family Medicine 10/13/24 Deepika Pelletier 10/13/24 [facility] 11/11/23 documented as of this encounter
--- OUTSIDE RECORDS SUMMARY | 2024-11-03 08:54 | XMS_ITS | Encounter Summary ---
Author Organization [employer] Address 75 [facility] 7t [place] [address] Care Team Providers Care Finance Manager Name Role Phone Lois Gaming NP Primary Care Provider [phone] Kuldeep Matthews RN Unavailable Deepika Pelletier Unavailable Reason for Visit * Reason Comments Med Refill Encounter Details Date Type Department Care Team ([facility] st Contact Info) Description 2024 Refill [facility] 230 [place], [place] [phone] Lois Gaming NP 230 [place], [place] [phone] Low vitamin D level Social History Tobacco [...] Description 12/30/2024 1:45 PM EST Office Visit [address] [address] Lois Gaming NP [address] [place] [address] 01/15/2025 9:00 AM EST Clinical Support [address] [address] Deborah Logan RN documented as of this encounter Visit Diagnoses Diagnosis Low vitamin D level documented in this encounter Additional Health Concerns Assessment Noted Time PHQ-9 Depression Total Score: 24 025 10:48 AM EST documented as of this encounter Care Teams Finance Manager Relationship Specialty Start Date End Date Lois Gaming NP [address] [place] [address] PCP - General Family Medicine 10/05/23 Kuldeep Matthews, BAM 505 [place] [address] Registered Nurse Family Medicine 10/13/24 Deepika Pelletier 10/13/24 [facility] 11/11/23 documented as of this encounter
--- OUTSIDE RECORDS SUMMARY | 2024-11-03 08:55 | XMS_ITS | Encounter Summary ---
Author Organization [employer] Address [address] [facility] 7t [place] [address] Care Team Providers Care Record Press Supervisor Name Role Phone Dillon Alcantara Primary Care Provider Unavail able Kristi BaeP Primary Care Provider [phone] Lois Gaming NP Primary Care Provider [phone] Kuldeep Matthews RN Unavailable Deepika Pelletier Unavailable Reason for Visit * Reason Onset Date Comments Appointment Request 02/02/2022 Encounter Details Date Type Department Care Team (Late Contact Info) Description 02/02/[address] [phone] Dillon Alcantara AGNP Appointment Request Social History [...] 8:34 AM EST [facility] documented in this encounter Plan of Treatment Upcoming Encounters Date Type Department Care Team (Late Contact Info) Description 12/30/2024 1:45 PM EST Office Visit [facility] 230 [place] [address] Lois Gaming, SHANNA 230 [place] [address] 01/15/2025 9:00 AM EST Clinical Support [facility] 230 [place], [place] [phone] Deborah Logan, RN documented as of this encounter Visit Diagnoses Not on filedocumented in this encounter Care Teams Record Press Supervisor Relationship Specialty Start Date End Date Dillon Alcantara AGNP PCP - General Family Medicine 01/05/22 10/15/22 Kristi Bae FNP 230 [place] [address] PCP - General Family Medicine 10/16/22 10/04/23 Lois Gaming, SHANNA [address] [place] [phone] PCP - General Family Medicine 10/05/23 Kuldeep Matthews, BAM [address] [place] [address] Registered Nurse Family Medicine 10/13/24 Deepika Pelletier 10/13/24 [facility] 11/11/23 documented as of this encounter
--- OUTSIDE RECORDS SUMMARY | 2024-11-03 08:55 | XMS_ITS | Encounter Summary ---
Author Organization [employer] Address [address] [facility] 7t [place] [address] Care Team Providers Care Huller Operator Name Role Phone Kristi Bae Primary Care Provider [phone] Lois Gaming NP Primary Care Provider [phone] Kuldeep Matthews RN Unavailable [phone] Deepika Pelletier Unavailable Reason for Visit * Reason Onset Date Comments Medication Question 03/09/2023 Encounter Details Date Type Department Care Team (Late st Contact Info) Description 03/09/2023 Telephone [facility] 230 [place], [place] [phone] Kristi Bae FNP [address] [place], [place] [phone] Medication Question Social History Tobacco Use Types [...] - 03/13/2023 9:48 AM EST T/C to [facility] pharmacy for below message for medication, pharmacy states medication will be ready with in couples hours. T/C to pt. For inform above message from pharmacy, pt. Verbally agreed and understood. * Telephone Encounter - Washington Solorzano - 03/12/2023 4:50 PM EST Tc from pt requesting status on medication empagliflozin (Jardiance) 25 MG. Please contact pt at [phone]. * Telephone Encounter - Gabi Loja - 03/09/2023 11:53 AM EST Tc from pt requesting for empagliflozin (Jardiance) 25 MG to be sent to [id number]- [place], [place] - [address] [facility]. Pt is out of medication. Pt states hecontact [facility] pharmacy and was advised it was transferred but pt called [facility] and was told they don't have a script. documented in this encounter Plan of Treatment Upcoming Encounters Date Type Department Care Team (Late st Contact Info) Description 12/30/2024 1:45 PM EST Office Visit [address] [address] Lois Gaming NP 230 [place] [address] 01/15/2025 9:00 AM EST Clinical Support [address] [address] Deborah Logan, BAM documented as of this encounter Visit Diagnoses Not on filedocumented in this encounter Additional Health Concerns Assessment Noted Time PHQ-9 Depression Total Score: 22 024 10:32 AM EST documented as of this encounter Care Teams Huller Operator Relationship Specialty Start Date End Date Kristi Bae FNP [address] [place] [address] PCP - General Family Medicine 10/16/22 10/04/23 Lois Gaming NP [address] [place] [address] PCP - General Family Medicine 10/05/23 Kuldeep Matthews, BAM [address] [place] [address] Registered Nurse Family Medicine 10/13/24 Deepika Pelletier 10/13/24 [facility] 11/11/23 documented as of this encounter
--- OUTSIDE RECORDS SUMMARY | 2024-11-03 08:55 | XMS_ITS | Encounter Summary ---
Author Organization [employer] Address [address] [facility] 7t [place] [address] Care Team Providers Care Practice Lead Name Role Phone Kristi Bae Primary Care Provider [phone] Lois Gaming NP Primary Care Provider [phone] Kuldeep Matthews RN Unavailable [phone] Deepika Pelletier Unavailable Reason for Visit * Reason Onset Date Comments New Med Request 09/12/2023 Encounter Details Date Type Department Care Team (Late st Contact Info) Description 09/12/2023 Telephone [facility] 230 [place], [place] [phone] Kristi Bae FNP 230 [place], [place] [phone] New Med Request Social History Tobacco Use [...] was gettingthis medication a while ago however ticket writer does not see on med list documented in this encounter Plan of Treatment Upcoming Encounters Date Type Department Care Team (Late st Contact Info) Description 12/30/2024 1:45 PM EST Office Visit [facility] [address] [place] [address] Lois Gaming NP 230 [place] [address] 01/15/2025 9:00 AM EST Clinical Support [facility] [address] [place] [address] Deborah Logan, BAM documented as of this encounter Visit Diagnoses Not on filedocumented in this encounter Additional Health Concerns Assessment Noted Time PHQ-9 Depression Total Score: 22 024 10:32 AM EST documented as of this encounter Care Teams Practice Lead Relationship Specialty Start Date End Date Kristi Bae FNP 230 [place] [address] PCP - General Family Medicine 10/16/22 10/04/23 Lois Gaming NP 230 [place] [address] PCP - General Family Medicine 10/05/23 Kuldeep Matthews, BAM [address] [place] [address] Registered Nurse Family Medicine 10/13/24 Deepika Pelletier 10/13/24 [facility] 11/11/23 documented as of this encounter
--- OUTSIDE RECORDS SUMMARY | 2024-11-03 08:55 | XMS_ITS | Encounter Summary ---
Author Organization [employer] Address [address] [facility] [address]t [place] [address] Care Team Providers Care Bookstore Manager Name Role Phone Kristi Bae Primary Care Provider [phone] Lois Gaming NP Primary Care Provider [phone] Kuldeep Matthews RN Unavailable [phone] Deepika Pelletier Unavailable Reason for Visit * Reason Onset Date Comments Med Refill 05/02/2023 Encounter Details Date Type Department Care Team (Late st Contact Info) Description 05/02/2023 Telephone [facility] [address] [place], [place] [phone] Kristi Bae FNP [address] [place], [place] [phone] Med Refill Social History Tobacco Use Types [...] 1000 MCG tablet To be sent to: [id number] - [place], [place] - [address] [facility] [place] documented in this encounter Plan of Treatment Upcoming Encounters Date Type Department Care Team ([place] st Contact Info) Description 12/30/2024 1:45 PM EST Office Visit [facility] [address] [place] [address] Lois Gaming NP [address] [place] [address] 01/15/2025 9:00 AM EST Clinical Support [facility] [address] [place] [address] Deborah Logan, RN documented as of this encounter Visit Diagnoses Not on filedocumented in this encounter Additional Health Concerns Assessment Noted Time PHQ-9 Depression Total Score: 22 024 10:32 AM EST documented as of this encounter Care Teams Bookstore Manager Relationship Specialty Start Date End Date Kristi Bae FNP [address] [place] [address] PCP - General Family Medicine 10/16/22 10/04/23 Lois Gaming NP [address] [place] [address] PCP - General Family Medicine 10/05/23 Kuldeep Matthews RN [address] [place] [address] Registered Nurse Family Medicine 10/13/24 Deepika Pelletier 10/13/24 [facility] [place] 11/11/23 documented as of this encounter
--- OUTSIDE RECORDS SUMMARY | 2024-11-03 08:55 | XMS_ITS | Encounter Summary ---
Author Organization [employer] Address [address] [facility] 7t [place] [address] Care Team Providers Care Mission Manager Name Role Phone Kristi Bae Primary Care Provider [phone] Lois Gaming NP Primary Care Provider [phone] Kuldeep Matthews RN Unavailable [phone] Deepika Pelletier Unavailable Reason for Visit * Reason Comments Med Refill Encounter Details Date Type Department Care Team (Late st Contact Info) Description 03/12/2023 Refill [facility] MEDICINE [address] [place], [place] [phone] Kristi Bae FNP [address] [place], [place] [phone] Social History Tobacco Use Types Packs/Day Years [...] Description 12/30/2024 1:45 PM EST Office Visit [address] [address] Lois Gaming NP [address] [place] [address] 01/15/2025 9:00 AM EST Clinical Support [address] [address] Deborah Logan RN documented as of this encounter Visit Diagnoses Not on filedocumented in this encounter Additional Health Concerns Assessment Noted Time PHQ-9 Depression Total Score: 22 024 10:32 AM EST documented as of this encounter Care Teams Mission Manager Relationship Specialty Start Date End Date Kristi Bae FNP [address] [place] [address] PCP - General Family Medicine 10/16/22 10/04/23 Lois Gaming NP [address] [place] [address] PCP - General Family Medicine 10/05/23 Kuldeep Matthews, RN [address] [place] [address] Registered Nurse Family Medicine 10/13/24 Deepika Pelletier 10/13/24 [facility] 11/11/23 documented as of this encounter
--- OUTSIDE RECORDS SUMMARY | 2024-11-03 08:55 | XMS_ITS | Encounter Summary ---
Author Organization [employer] Address [address] [facility] [place] [address] Care Team Providers Care Aquaculture Director Name Role Phone Mekhi Lois SHANNA Primary Care Provider [phone] Kuldeep Matthews RN Unavailable [phone] Deepika Pelletier Unavailable Encounter Details Date Type Department Care Team (Late st Contact Info) Description 10/08/2023 Orders Only [facility] P[facility] [address] [place] [address] Kristi Bae FNP [address] [place] [address] Social History Tobacco Use Types Packs/Day Years [...] 12/30/2024 1:45 PM EST Office Visit [address] [address] Lois Gaming NP [address] [place] [address] 01/15/2025 9:00 AM EST Clinical Support [address] [address] Deborah Logan RN documented as of this encounter Visit Diagnoses Not on filedocumented in this encounter Additional Health Concerns Assessment Noted Time PHQ-9 Depression Total Score: 22 024 10:32 AM EST documented as of this encounter Care Teams Aquaculture Director Relationship Specialty Start Date End Date Lois Gaming NP [address] [place] [address] PCP - General Family Medicine 10/05/23 Kuldeep Matthews, RN [address] [place] [address] Registered Nurse Family Medicine 10/13/24 Deepika Pelletier 10/13/24 [facility] 11/11/23 documented as of this encounter
== END 2024-11-03 09:17 | disposition home or self-care (01) ==
LOC: HO.HOS 08:32
PROVIDERS: PCP Nurse Practitioner Family; Visit Provider Physician Assistant
DX: M77.8 Other enthesopathies, not elsewhere classified (principal)
CPT/HCPCS: 99213

== ENCOUNTER → 2024-11-03 08:31 | Outpatient (BNVA) | payer MEDICAID, SELFPAY | PROVIDERS: PCP Nurse Practitioner Family; Visit Provider Physician Assistant | DX: M25.512 Pain in left shoulder (principal); M77.8 Other enthesopathies, not elsewhere classified | CPT/HCPCS: 99212 ==

== ENCOUNTER → 2024-12-16 13:22 | Outpatient (REF) | payer MEDICAID, SELFPAY ==
--- OUTSIDE RECORDS SUMMARY | 2024-12-16 15:01 | XMS_ITS | Encounter Summary ---
Author Organization [employer] Address [address] [facility] [address] [place] [address] Care Team Providers Care Claims Assistant Name Role Phone Kristi Bae Primary Care Provider [phone] Lois Gaming NP Primary Care Provider [phone] Kuldeep Matthews RN Unavailable [phone] Deepika Pelletier Unavailable Reason for Visit * Reason Onset Date Comments Medication Question 02/21/2023 Encounter Details Date Type Department Care Team (Late st Contact Info) Description 02/21/2023 Telephone [facility] MEDICINE [address] [place], [place] [phone] Kristi Bae FNP [address] [place], [place] [phone] Medication Question Social History Tobacco Use Types [...] pharmacies have [facility]. Please contact pt at [phone] documented in this encounter Plan of Treatment Upcoming Encounters Date Type Department Care Team (Late st Contact Info) Description 12/30/2024 1:45 PM EST Office Visit [facility] MEDICINE [address] [place] [address] Lois Gaming NP [address] [place] [address] 01/15/2025 9:00 AM EST Clinical Support [facility] [address] [place] [address] Deborah Logan RN documented as of this encounter Visit Diagnoses Not on filedocumented in this encounter Additional Health Concerns Assessment Noted Time PHQ-9 Depression Total Score: 17 023 9:10 AM EST documented as of this encounter Care Teams Claims Assistant Relationship Specialty Start Date End Date Kristi Bae FNP [address] [place] [address] PCP - General Family Medicine 10/16/22 10/04/23 Lois Gaming NP [address] [place] [address] PCP - General Family Medicine 10/05/23 Kuldeep Matthews, BAM [address] [place] [address] Registered Nurse Family Medicine 10/13/24 Deepika Pelletier 10/13/24 [facility] 11/11/23 documented as of this encounter
--- OUTSIDE RECORDS SUMMARY | 2024-12-16 15:02 | XMS_ITS | Encounter Summary ---
Author Organization [employer] Address [address] [facility] 7t [place] [address] Care Team Providers Care Vice President Diversity Name Role Phone Lois Gaming NP Primary Care Provider [phone] Kuldeep Matthews RN Unavailable [phone] Deepika Pelletier Unavailable Reason for Visit * Reason Comments Med Refill Encounter Details Date Type Department Care Team ([facility] st Contact Info) Description 2024 Refill [facility] MED[facility]INE [address] [place], [place] [phone] Lois Gaming NP [address] [place], [place] [phone] Low vitamin D level Social History Tobacco [...] Description 12/30/2024 1:45 PM EST Office Visit [address] [address] Lois Gaming NP [address] [place] [address] 01/15/2025 9:00 AM EST Clinical Support [address] [address] Deborah Logan RN documented as of this encounter Visit Diagnoses Diagnosis Low vitamin D level documented in this encounter Additional Health Concerns Assessment Noted Time PHQ-9 Depression Total Score: 24 025 10:48 AM EST documented as of this encounter Care Teams Vice President Diversity Relationship Specialty Start Date End Date Lois Gaming NP [address] [place] [address] PCP - General Family Medicine 10/05/23 Kuldeep Matthews, BAM [address] [place] [address] Registered Nurse Family Medicine 10/13/24 Deepika Pelletier 10/13/24 [facility] 11/11/23 documented as of this encounter
--- OUTSIDE RECORDS SUMMARY | 2024-12-16 15:02 | XMS_ITS | Encounter Summary ---
Author Organization [employer] Address [address] [facility] 7t [place] [address] Care Team Providers Care Dragline Engineer Name Role Phone Kristi Bae Primary Care Provider [phone] Lois Gaming NP Primary Care Provider [phone] Kuldeep Matthews RN Unavailable [phone] Deepika Pelletier Unavailable Reason for Visit * Reason Onset Date Comments New Med Request 09/12/2023 Encounter Details Date Type Department Care Team (Late st Contact Info) Description 09/12/2023 Telephone [facility] MEDICINE [address] [place], [place] [phone] Kristi Bae FNP [address] [place], [place] [phone] New Med Request Social History Tobacco Use [...] Description 12/30/2024 1:45 PM EST Office Visit [facility] [address] [place] [address] Lois Gaming NP [address] [place] [address] 01/15/2025 9:00 AM EST Clinical Support [facility] [address] [place] [address] Deborah Logan, BAM documented as of this encounter Visit Diagnoses Not on filedocumented in this encounter Additional Health Concerns Assessment Noted Time PHQ-9 Depression Total Score: 22 024 10:32 AM EST documented as of this encounter Care Teams Dragline Engineer Relationship Specialty Start Date End Date Kristi Bae FNP [address] [place] [address] PCP - General Family Medicine 10/16/22 10/04/23 Lois Gaming NP [address] [place] [address] PCP - General Family Medicine 10/05/23 Kuldeep Matthews, BAM [address] [place] [address] Registered Nurse Family Medicine 10/13/24 Deepika Pelletier 10/13/24 [facility] 11/11/23 documented as of this encounter
--- OUTSIDE RECORDS SUMMARY | 2024-12-16 15:02 | XMS_ITS | Clinical Summary ---
Author Organization [employer] Address [address] [place] [address] Care Team Providers Care Configurator Name Role Phone Lois Gaming NP Primary Care Provider [phone] Kuldeep Matthews RN Unavailable [phone] Deepika Pelletier Unavailable Allergies No known active allergies Medications mirtazapine (Remeron) 45 MG tablet Take 45 mg by mouth at bedtime. Active rOPINIRole (Requip) 1 MG tablet Take 1 mg by mouth at bedtime. 022 Active sertraline (Zoloft) 100 MG tablet Active albuterol 108 (90 Base) MCG/ACT inhaler 1 puff as needed 18 g 11 Active Additional Information Patient not taking.Reported on [...] Additional Information Patient not taking.Reported on 10/23/2024 glucose blood (FREESTYLE LITE) test stripIndications:T ype 2 diabetes mellitus without complication, unspecified whether automation machine builder insulin use USE TO TEST TWICE DAILY 100 each 5 Active Additional Information Patient not taking.Reported on 10/23/2024 FreeStyle lancetsIndications :Type 2 diabetes mellitus without complication, unspecified whether automation machine builder insulin use 1 each by Other route 2 times daily. 100 each 11 Active Continuous Glucose Oil And Gas Exploration Technician (FreeStyle Get 3 Burnet) deviceIndications: Type 2 diabetes mellitus treated with insulin ([facility]) 1 each Once per day. Use as directed for CGM 1 each Active Continuous Glucose Sensor (FreeStyle Get 3 Plus Sensor) miscIndications:Ty pe 2 diabetes mellitus treated with insulin ([facility]) 1 each every 15 days. Apply 1 every 15 days as directed for CGM 2 each Active glucose blood (FreeStyle Precision Neal Test) test stripIndications:T ype 2 diabetes mellitus treated with insulin ([facility]) Use to test blood sugar 4 times daily in case of CGM failure or extremes of BG 100 each 11 025 04/11 Active senna-docusate sodium (Senokot-S) 8.6-50 MG tabletIndications: Drug-induced constipation Take 2 tablets by mouth 2 (two) times a week. Take 2 tablets by mouth daily as needed for consipation, do not exceed 4 tablets per week 9 tablet 025 04/14 Active insulin glargine (Lantus) 100 UNIT/ML injection Inject 20 Units under the skin 2 times daily. 10 mL 12 025 08/22 Active Alcohol Swabs (Alcohol Prep) 70 % padsIndications:Ty pe 2 diabetes mellitus without complication, unspecified whether automation machine builder insulin use USE 1 SWAB BY TOPICAL ROUTE TWICE DAILY 100 each 5 Active pen needle 31G x 6 mm [...] DISSOLVE OR CHEW. 90 tablet 2 Active ferrous gluconate (Fergon) 324 (38 Fe) MG tabletIndications: Other iron deficiency anemia Take 1 pill every Sunday, Sunday, and Sunday. Take with a full glass of water 46 tablet 2 Active ibuprofen 400 MG tablet TAKE 1 TABLET [...] opiate analgesic as directed 2 each 2 Active cholecalciferol VITAMIN D (Vitamin D-3) 50 MCG (2000 UT) capsuleIndications :Low vitamin D level TAKE 1 CAPSULE BY MOUTH EVERY DAY 90 capsule Active cyanocobalamin (Vitamin B-12) 1000 MCG tablet TAKE 1 TABLET BY MOUTH EVERY MORNING 90 tablet 1 Active lisinopril 20 MG tabletIndications: Essential hypertension TAKE 1 TABLET(20 MG) BY MOUTH IN THE MORNING 90 tablet 1 Active Alcohol Swabs (Alcohol Prep) padsIndications:Ty pe 2 diabetes 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 200 each 11 Active Asmanex HFA 200 MCG/ACT aerosolIndications :Mild persistent asthma without complication INHALE 1 PUFF BY MOUTH TWICE DAILY 13 g 3 025 Active traMADol (Ultram) 50 MG tabletIndications: Chronic low back pain, unspecified back pain laterality, unspecified whether sciatica present TAKE 1 TO 2 TABLETS BY MOUTH EVERY 6 HOURS NEEDED FOR SEVERE PAIN 224 tablet 025 12/23 Active ketoconazole (NIZOral) 2 % creamIndications:I ntertrigo APPLY TOPICALLY TO THE AFFECTED AREA(S) EVERY DAY 30 g 025 Active docusate sodium (Colace) 100 MG capsule TAKE 1 CAPSULE BY MOUTH TWICE DAILY 180 capsule Active insulin lispro (HumaLOG Rhys KwikPen) 100 UNIT/ML pen Inject 6 Units under the skin with breakfast, with lunch, and with evening meal. Per sliding scale BG <111 0 units, 111-150 - 0 units, 151-200 2 units, 201-250 4 units, 251-300 6 units, 301-350 8 units, >350 10 units 6 mL 12 025 12/12 Active gabapentin (Neurontin) 300 MG capsuleIndications :Numbness of upper extremity TAKE 1 CAPSULE BY MOUTH TWICE DAILY 56 capsule 2 Active Mounjaro 2.5 MG/0.5ML solution auto-injector INJECT ONE PEN (=2.5MG) SUBCUTANEOUSLY ONCE A WEEK DIRECTED 2 mL 1 Active insulin lispro (HumaLOG Rhys KwikPen) 100 UNIT/ML pen Inject 6 Units under the skin with breakfast, with lunch, and with evening meal. Per sliding scale BG <111 0 units, 111-150 - 0 units, 151-200 2 units, 201-250 4 units, 251-300 6 units, 301-350 8 units, >350 10 units 6 mL 12 024 12/11 Discontinued( Reorder (will not trigger notification to Pharmacy)) docusate sodium (Colace) 100 MG capsule TAKE 1 CAPSULE BY MOUTH TWICE DAILY 180 capsule 025 12/11 Discontinued( Reorder (will not trigger notification to Pharmacy)) Asmanex HFA 200 MCG/ACT aerosolIndications :Mild persistent asthma without complication INHALE 1 PUFF BY MOUTH TWICE DAILY 13 g 3 025 11/17 Discontinued ketoconazole (NIZOral) 2 % creamIndications:I ntertrigo APPLY TOPICALLY TO THE AFFECTED AREA(S) EVERY DAY 30 g 025 11/21 Discontinued gabapentin (Neurontin) 300 MG capsuleIndications :Numbness of upper extremity Take 1 capsule (300 mg) by mouth 2 times daily. 56 capsule 2 025 12/16 Discontinued traMADol (Ultram) 50 MG tabletIndications: Chronic low back pain, unspecified back pain laterality, unspecified whether sciatica present TAKE 1 TO 2 TABLETS BY MOUTH EVERY 6 HOURS NEEDED FOR SEVERE PAIN 224 tablet 025 11/21 Discontinued Tirzepatide (Mounjaro) 2.5 MG/0.5ML solution auto-injector Inject 2.5 mg under the skin 1 (one) time per week. 2 mL 1 025 12/16 Discontinued Active Problems Problem Noted Date Diagnosed Date Morbid obesity (CMS/HCC) 09/26/2024 Iron deficiency anemia 09/26/2024 Type 2 [...] groin, prn topical therapies as rx'd below [facility] (current) use of opiate analgesic 04/05 Exercise [...] pain Colon cancer screening 11/07/2023 Necrotizing fasciitis (CMS/HCC) 11/03/2023 Assessment & Plan (12/25/2023 11:08 PM [...] established as well as wound care Sepsis ([facility]) 09/14/2023 Assessment & Plan (09/14/2023 9:51 AM EDT): I presented case to [facility] emergency room Im sending patient via ambulance [...] factors. LDL-C is now calculated using the Christiano-David calculation, which is a validated novel method providing better accuracy than the Friedewald equation in the estimation of LDL-C. Christiano AVELAR et al. ABBY. 2013;310(19): 0542-7693 (http://education.slinkset/faq/VVN910) Chol/HDLC Ratio <5.0 (calc) 3.4 3.3 3.0 [...] on mounjaro, improved glucose control Referral to clinical appeals auditor Follow up in 3 months sooner prn [...] Encounters Date Type Department Care Team Description 12/15/2024 Refill [facility] MEDICINE [address] [place] [address] Lois Gaming NP Numbness of upper extremity 12/11/2024 Refill [facility] PEDS [address] [place] [address] Lois Gaming NP 11/20/2024 Refill [facility] [address] [place] [address] Lois Gaming NP Chronic low back pain, unspecified back pain laterality, unspecified whether sciatica present; Intertrigo 11/15/2024 Refill [facility] [address] [place] [phone] Lois Gaming NP Mild persistent asthma without complication 11/05/2024 Patient Outreach [facility] [address] [place] [phone] Lois Gaming NP Care Coordination ([address] Deepika Pelletier telephone call outreach) 11/03/2024 Refill [facility] [address] [place] [phone] Lois Gaming NP Type 2 diabetes 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, without long-term current use of insulin ([facility]); Type 2 diabetes mellitus treated with insulin ([facility]) 10/29/2024 Orders Only [facility] [address] [place] [phone] Lois Gaming NP Type 2 diabetes mellitus with hyperglycemia, with long-term current use of insulin ([facility]) (Primary Dx) 10/27/2024 Plan of Care Documentation [facility] [address] [place] [phone] 10/27/[address] [phone] Lois Gaming NP call back request 10/27/[address] [address] Lois Gaming NP Med Refill 10/27/[address] [address] Lois Gaming NP Med Refill 10/26/2024 Refill [facility] [address] [place] [address] Lois Gaming NP Essential hypertension 10/24/[address] [address] Lois Gaming NP Prior Authorization 10/24/2024 Refill [facility] [address] [place] [address] Lois Gaming NP Chronic low back pain, unspecified back pain laterality, unspecified whether sciatica present 10/23/2024 Patient Outreach [address] [address] Lois Gaming NP Care Management (C3CM- Initial assessment/enrollment) 10/22/2024 Patient Outreach [address] [phone] Lois Gaming NP [facility] 10/18/[address] [address] Lois Gaming NP Low vitamin D level 10/17/2024 Outside Procedure [facility] OPTOMETRY [address] [place] [phone] Rich, Anitha, OD Presbyopia (Primary Dx) 10/17/[address] [address] Lois Gaming NP December10/15/2024 9:00 AM EDT Clinical Support [address] [address] Deborah Logan, RN [facility] (current) use of opiate analgesic (Primary Dx) 10/15/[address] [address] Deborah Logan, RN jewelry drill operator (current) use of opiate analgesic (Primary Dx) 10/15/2024 Travel 10/13/2024 Patient Outreach [address] [phone] Lois Gaming NP Care Coordination (C3 CM-[facility] Deepika Pelletier telephone call outreach) 10/13/2024 Patient Outreach [address] [address] Lois Gaming NP Care Coordination (C3 CM-[facility] Deepika Pelletier chart review) 10/13/2024 Patient Outreach [address] [address] Lois Gaming NP Care Coordination (C3- chart review) 10/13/2024 Patient Outreach [facility] [address] [place] [phone] Lois Gaming NP 10/12/2024 Orders Only [facility] External Provider, [facility] 10/08/2024 Patient Outreach [facility] [address] [place] [phone] Lois Gaming NP Care Coordination (C3 -W Deepika Pelletier outreach pt 1) 10/08/[address] [address] Lois Gaming NP PT-1 10/08/2024 Travel 10/07/2024 Telephone [facility] [address] [place] [address] Lois Gaming NP Prior Authorization 10/07/2024 Refill [facility] [address] [place] [address] Lois Gaming NP Type 2 diabetes 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, without long-term current use of insulin ([facility]) 09/26/2024 2:30 PM EDT Office Visit [facility] [address] [place] [phone] Lois Gaming NP Morbid obesity ([facility]) (Primary Dx); Type 2 diabetes 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, without long-term current use of insulin ([facility]); Numbness of upper extremity; Other iron deficiency anemia; Obstructive sleep apnea syndrome; Chronic low back pain, unspecified back pain laterality, unspecified whether sciatica present 09/26/2024 10:15 AM EDT Office Visit [facility] OPTOMETRY [address] [place] [address] Rich, Anitha, OD Hypermetropia, right (Primary Dx) 09/25/2024 Telephone [facility] MED[facility]INE [address] [place] [address] Lois Gaming NP Chart Prep 09/22/2024 Refill [facility] [address], [place] [phone] Graef, Lois, CT SCAN TECHNICIAN Numbness of upper extremity 09/19/2024 Travel from Last 3 Months Immunizations Immunization Administration [...] Description 12/30/2024 1:45 PM EST Office Visit [facility] MEDICINE [address] [place] [address] Lois Gaming, SHANNA [address] [place] [address] 01/15/2025 9:00 AM EST Clinical Support [facility] [address] [place] [address] Deborah Loagn, RN Health Maintenance Due Date Last Done [...] DRUG SCREEN Routine 10/15/2024 9:12 AM EDT [facility] (current) use of opiate analgesic CT SOFT [...] without long-term current use of insulin (CMS/HCC) HEMOGLOBIN A1C Routine 07/17/2024 8:49 AM EDT Type 2 diabetes 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, without long-term current use of insulin (CMS/HCC) LIPID PANEL, STANDARD Routine 01/21/2024 8:37 AM EST Type 2 diabetes mellitus without complication, unspecified whether automation machine builder insulin use (CMS/HCC) HEPATITIS C AB W/REFL [...] - 10/15/2024 9:12 AM EDT UTOX cup Lot#[id number] Exp. 11/11/25 Internal Pass Control Lois Gaming NP POINT OF CARE TEST ENTER/EDIT OR DERABLES Final Result * CT Soft Tissue Neck w/ Contrast (10/12/2024 7:21 PM EDT) Anatomical Region Laterality Modality Head, Neck Computed Tomogra phy 10/12/2024 7:21 PM EDT Narrative 10/12/2024 7:22 PM EDT [place] [address] CT Scan Report Signed Patient: Kodi Cummings MR#: [id number] : 1975 Acct:[id number] Age/Sex: 49 / M ADM Date: 10/12/24 Loc: .ED Attending Dr: Ordering Physician: Isabel Stanley DO Date of Service: 10/12/24 Procedure(s): CT soft tissue neck w IV con Accession Number(s): [id number] cc: Isabel Stanley DO; Lois Gaming CT SCAN TECHNICIAN Report Number: [id number]: Total DLP = 831.00 mGy-cm Reason for [...] in OV> 10/12/241920 DD/ 20 TD/TT: 10/12/241920 Materials Supervisor: Procedure Note Donotuseinterpreter, Image - 10/12/[address] [address] [address] Scan Report Signed Patient: Kodi CummingsMR#: [id number] : 1975Acct:[id number] Age/Sex: 49 / MADM Date: 10/12/24 Loc: HO.ED Attending Dr: Ordering Physician: Isabel Stanley DO Date of Service: 10/12/24 Procedure(s): CT soft tissue neck w IV con Accession Number(s): [id number] cc: Isabel Stanley DO; Lois Gaming CT SCAN TECHNICIAN Report Number: [id number]: Total DLP = 831.00 mGy-cm Reason for [...] in OV> 10/12/241920 DD/ 20 TD/TT: 10/12/241920 Materials Supervisor: [facility] External Provider IMG CT PROCEDURES Edited Result - Final * CT Shoulder Left w/Contrast (10/12/2024 7:14 PM EDT) Anatomical Region Laterality Modality Computed Tomogra phy 10/12/2024 7:14 PM EDT Narrative 10/12/2024 7:15 PM EDT [place] [address] CT Scan Report Signed Patient: Kodi Cummings MR#: [id number] : 1975 Acct:[id number] Age/Sex: 49 / M ADM Date: 10/12/24 Loc: .ED Attending Dr: Ordering Physician: Isabel Stanley DO Date of Service: 10/12/24 Procedure(s): CT shoulder LT w IV con Accession Number(s): [id number] cc: Isabel Stanley DO; Lois Gaming CT SCAN TECHNICIAN Report Number: [id number]: Total DLP = 409.00 mGy-cm Reason for [...] in OV> 10/12/241914 DD/ 13 TD/TT: 10/12/241913 Materials Supervisor: Procedure Note Donotuseinterpreter, Image - 10/12/[address] [address] [address] Scan Report Signed Patient: Dm Cummings#: [id number] : 1975Acct:[id number] Age/Sex: 49 / MADM Date: 10/12/24 Loc: HO.ED Attending Dr: Ordering Physician: Isabel Stanley DO Date of Service: 10/12/24 Procedure(s): CT shoulder LT w IV con Accession Number(s): [id number] cc: Isabel Stanley DO; Lois Gaming CT SCAN TECHNICIAN Report Number: [id number]: Total DLP = 409.00 mGy-cm Reason for [...] in OV> 10/12/241914 DD/ 13 TD/TT: 10/12/241913 Materials Supervisor: [facility] External Provider IMG CT PROCEDURES Edited Result - Final * Blood Culture (First) (10/12/2024 5:14 PM EDT) Blood Venous blood specimen / Unknown 10/12/2024 5:14 PM EDT 10/12/2024 5:18 PM EDT Comment:Blood Narrative [facility] - 10/17/2024 7:18 PM EDT Blood Culture (First) No growth after 5 days. Specimen Source: Blood Generic External Data Provider LAB MICROBIOLOGY - GENERAL ORDERABLES Final Result Performing Organization Address [facility] Co de Phone Number [facility] [address] [place] [phone] * Blood Culture (Second) (10/12/2024 5:14 PM EDT) Blood Venous blood specimen / Unknown 10/12/2024 5:14 PM EDT 10/12/2024 5:18 PM EDT Comment:Blood Narrative [facility] - 10/17/2024 7:18 PM EDT Blood Culture (Second) No growth after 5 days. Specimen Source: Blood Generic External Data Provider LAB MICROBIOLOGY - GENERAL ORDERABLES Final Result Performing Organization Address [facility] Co de Phone Number [facility] [address] [place] [phone] * Lactic Acid (10/12/2024 5:14 PM EDT) Lactic Acid 1.0 0.5 - 2.0 mmol/L [facility] 10/12/2024 5:14 PM EDT 10/12/2024 5:18 PM EDT Generic External Data Provider LAB BLOOD ORDERAB LES Final Result Performing Organization Address [facility] Co de Phone Number [facility] [address] [place] [phone] * XR Shoulder 2+ Views Left (10/12/2024 4:25 PM EDT) Anatomical Region Laterality Modality Upper Extremities, Shoulder Left Radi ographic Imaging 10/12/2024 4:25 PM EDT Narrative 10/12/2024 4:26 PM EDT [address] [address] XRay Report Signed Patient: Kodi Cummings MR#: [id number] : 1975 Acct:[id number] Age/Sex: 49 / M ADM Date: 10/12/24 Loc: HO.ED Attending Dr: Ordering Physician: Nico Hoyt Date of Service: 10/12/24 Procedure(s): XR shoulder LT min 2V Accession Number(s): [id number] cc: Nico Hoyt; Lois Gaming CT SCAN TECHNICIAN Reason for Exam: pain CLINICAL HISTORY: pain 4 view left shoulder Comparison: None provided Findings: Bones intact. No dislocations. Very mild arthritic change. No erosions. No radiopaque foreign body. IMPRESSION: 1. No acute findings This document has been electronically signed by: Aury Cantu MD on 10/12/2024 16:25:19 Dictated By: Aury Cantu MD Signed By: <Electronically signed by Aury Cantu MD in OV> 10/12/24 1625 DD/ 1625 TD/TT: 10/12/24 162 Materials Supervisor: Procedure Note Donotuseinterpreter, Image - 10/12/[address] [address] XRay Report Signed Patient: Kodi CummingsMR#: [id number] : 1975Acct:[id number] Age/Sex: 49 / MADM Date: 10/12/24 Loc: HO.ED Attending Dr: Ordering Physician: Nico Hoyt Date of Service: 10/12/24 Procedure(s): XR shoulder LT min 2V Accession Number(s): [id number] cc: Nico Hoyt; Lois Gaming CT SCAN TECHNICIAN Reason for Exam: pain CLINICAL HISTORY: pain 4 view left shoulder Comparison: None provided Findings: Bones intact. No dislocations. Very mild arthritic change. No erosions. No radiopaque foreign body. IMPRESSION: 1. No acute findings This document has been electronically signed by: Aury Cantu MD on 10/12/2024 16:25:19 Dictated By: Aury Cantu MD Signed By: <Electronically signed by Aury Cantu MD in OV> 10/12/24 1625 DD/ 162 TD/TT: 10/12/24 162 Materials Supervisor: [facility] External Provider IMG XR PROCEDURES Edited Result - Final * POCT Glucose (09/26/2024 2:47 PM EDT) Glucose Blood, POC 193 60 - 200 mg/dL QC Media Lot # [id number] Lot# Expiration Date Blood Capillary blood specimen / Unknown 09/26/2024 2:47 PM EDT Result [facility] Lois Gaming NP POINT OF CARE TEST ENTER/EDIT OR DERABLES Final Result * (ABNORMAL) Hemoglobin A1c (07/17/2024 8:49 AM EDT) Hemoglobin A1c 7.7(H) <6.0 % [facility] Comment:Hemoglobin A1C Refer ence Range Adults: 4.8 - 6.0 % Non diabetic: < 6.0 % Goal: < 7.0 %Additional Action Suggested: > 8.0 %Note: Hemoglobin A1c results are invalid for patients with abnormal amounts of HbF. Blood transfusions may impact the HbA1c concentration in the patient sample. Estimated Average Glucose 174 mg/dL [facility] Comment:eAG = Estimated ave rage glucose which is %A1C expressed asaverage glucose, using the formula of the [id number]-[id number] Glucose study (ADAG), Diabetes Care, Vol.31,#8,Sep. 2007 Blood Venous blood specimen / Unknown 07/17/2024 8:49 AM EDT 07/17/2024 11:10 AM EDT Lois Gaming NP LAB BLOOD ORDERABLES Final Resul t [facility] [address] [place] [phone] * Lipid Panel, Standard (01/21/2024 8:37 AM EST) Triglycerides 144 <150 mg/dL [facility] Comment:Desirable Triglyceri de: less than 150 mg/dLBorderline High Triglyceride 150-199 mg/dLHigh Triglyceride: 200-499 mg/dLVery High Triglyceride: greater than or equal to 5OO mg/dL Cholesterol 149 <200 mg/dL [facility] Comment:Desirable Cholestero l: less than 200 mg/dLBorderline High Cholesterol: 200-239 mg/dLHigh Cholesterol: greater than 239 mg/dL LDL Cholesterol Calculated 61 <100 mg/dL [facility] Comment:Desirable LDL: less than 100 mg/dLNear Optimal/Above Optimal LDL: 110- 129 mg/dLBorderline High LDL: 130-159 mg/dLHigh LDL: 160-189 mg/dLVery High LDL: greater than or equal to 190 mg/dL HDL Cholesterol 60 >40 mg/dL [facility] Comment:Desirable HDL: great er than 40 mg/dL Note: This HDL assay may give artificially low results in patients with liver disease. Blood Venous blood specimen / Unknown 01/21/2024 8:37 AM EST 01/21/2024 12:12 PM EST Lois Gaming NP LAB BLOOD ORDERABLES Final Resul t [facility] [address] [place] [phone] * HIV-1 RNA, Quantitative, Real-Time PCR with Reflex to Genotype (RTI, PI, Integrase) (03/20/2022 8:20 AM EST) HIV 1 RNA, QN PCR NOT DETECTED copies/mL [facility], HIV 1 RNA, QN PCR NOT DETECTED Log copies/mL [facility], Comment: REFERENCE RANGE: NOT DETECTED copies/mL NOT DETECTED Log copies/mL This test was performed using Real-Time Polymerase Chain Reaction. Reportable range is 20 to 10,000,000 copies/mL (1.30-7.00 Log copies/mL). 03/20/2022 8:20 AM EST 03/20/2022 8:21 AM EST Narrative [facility] - 03/23/2022 8:05 PM EST FASTING:YES FASTING: YES Dillon Alcantara [facility] LAB BLOOD ORDERABLES Final Res ult Performing Organization Address City/[facility]/ZIP Co de Phone Number [address], [place] [address] [employer]/[facility], [address] [place] [address] * Hepatitis C Antibody with Reflex to HCV, RNA, Quantitative, Real-Time PCR (03/20/2022 8:20 AM EST) Hepatitis C Antibody NON-REACT TAY NON-REACT TAY [employer] Index 0.04 <1.00 [employer] Comment: HCV antibody was non-reactive. There is no laboratory evidence of HCV infection. In most cases, no further action is required. However, if recent HCV exposure is suspected, a test for HCV RNA (test code 93012) is suggested. For additional information please refer to http://education.Proenza Schouer/faq/ZVD99m1 (This link is being provided for informational/ educational purposes only.) 03/20/2022 8:20 AM EST 03/20/2022 8:21 AM EST Narrative [facility] - 03/23/2022 8:05 PM EST FASTING:YES FASTING: YES Dillon Alcantara [facility] LAB BLOOD ORDERABLES Final Res ult Performing Organization Address City/[facility]/ZIP Co de Phone Number [address], [place] [address] [employer] [address] [place] [address], ([address]) [place] [address] * Hm Colonoscopy (03/14/2022) Colonoscopy Normal Normal Historical Provider HEALTH MAINTENANCE Final Result * ALBUMIN, RANDOM URINE W/CREATININE (01/26/2021 8:20 AM EST) Microalbumin Urine 0.2 See Note: mg/dL [facility] [...] Final R esult [facility] [address] [place] [address] from Last 3 Months or Most Recently Relevant to Health Maintenance Insurance [facility] C3 Care Teams Configurator Relationship Specialty Start Date End Date Lois Gaming NP [address] [place] [address] PCP - General Family Medicine 10/05/23 Kuldeep Matthews, BAM [address] [place] [address] [place] [address] Registered Nurse Family Medicine 10/13/24 Deepika Pelletier 10/13/24 [facility] 11/11/23
--- OUTSIDE RECORDS SUMMARY | 2024-12-16 15:02 | XMS_ITS | Encounter Summary ---
Author Organization [employer] Address 75 [facility] 7t [place] [address] Care Team Providers Care Education Diagnostician Name Role Phone Dillon Alcantara AGNMarlon Primary Care Provider Unavail able Kristi BaeP Primary Care Provider [phone] Lois Gaming NP Primary Care Provider [phone] Kuldeep Matthews RN Unavailable [phone] Deepika Pelletier Unavailable Reason for Visit * Reason Comments Med Refill Encounter Details Date Type Department Care Team (Late st Contact Info) Description 02/22/2022 Refill [facility] 230 [place] [address] Kaylynn Whiting MD [address] [place] [address] Chronic pain of both knees Social History [...] Description 12/30/2024 1:45 PM EST Office Visit [address] [address] Lois Gaming, SHANNA [address] [place] [address] 01/15/2025 9:00 AM EST Clinical Support [address] [address] Deborah Logan, BAM documented as of this encounter Visit Diagnoses Diagnosis Chronic pain of both knees documented in this encounter Additional Health Concerns Assessment Noted Time PHQ-9 Depression Total Score: 17 023 9:10 AM EST documented as of this encounter Care Teams Education Diagnostician Relationship Specialty Start Date End Date Dillon Alcantara AGNP PCP - General Family Medicine 01/05/22 10/15/22 Kristi Bae FNP [address] [place] [address] PCP - General Family Medicine 10/16/22 10/04/23 Lois Gaming NP [address] [place] [address] PCP - General Family Medicine 10/05/23 Kuldeep Matthews, RN [address] [place] [address] Registered Nurse Family Medicine 10/13/24 Deepika Pelletier 10/13/24 [facility] 11/11/23 documented as of this encounter
--- OUTSIDE RECORDS SUMMARY | 2024-12-16 15:02 | XMS_ITS | Encounter Summary ---
Author Organization [employer] Address [address] [facility] [address] 7t [place] [address] Care Team Providers Care Air Intercept Controller Supervisor Name Role Phone Mekhi Lois OTERO Primary Care Provider [phone] Kuldeep Matthews RN Unavailable [phone] Deepika Pelletier Unavailable Reason for Visit * Reason Comments Med Refill Encounter Details Date Type Department Care Team ([facility] st Contact Info) Description 09/07/2024 Refill [facility] 230 [place], [place] [phone] Kadie Villalpando MD 230 [place], [place] [phone] Social History Tobacco Use Types Packs/Day Years [...] Description 12/30/2024 1:45 PM EST Office Visit [address] [address] Lois Gaming NP [address] [place] [address] 01/15/2025 9:00 AM EST Clinical Support [address] [address] Deborah Logan RN documented as of this encounter Visit Diagnoses Not on filedocumented in this encounter Additional Health Concerns Assessment Noted Time PHQ-9 Depression Total Score: 24 025 10:48 AM EST documented as of this encounter Care Teams Air Intercept Controller Supervisor Relationship Specialty Start Date End Date Lois Gaming NP 230 [place] [address] PCP - General Family Medicine 10/05/23 Kuldeep Matthews, BAM [address] [place] [address] Registered Nurse Family Medicine 10/13/24 Deepika Pelletier 10/13/24 [facility] 11/11/23 documented as of this encounter
--- OUTSIDE RECORDS SUMMARY | 2024-12-16 15:02 | XMS_ITS ---
Author Organization [employer] Address 75 [facility] 7t [place] [address] Care Team Providers Care Forest Fire Specialist Supervisor Name Role Phone Lois Gaming NP Primary Care Provider [phone] Kuldeep Matthews RN Unavailable [phone] Deepika Pelletier Unavailable [facility] Status:Enrolled (Active) Start date:10/13/2024 Enrollment date:10/13/2024 Enrollment reason:ADT Feed Overview ED- Pt went to [facility] ED on 10/12/24. Case Team Name Relationship Phone Deepika Pelletier(Responsible Staff) [phone] Continued Care and Services Coordination
--- OUTSIDE RECORDS SUMMARY | 2024-12-16 15:02 | XMS_ITS | Encounter Summary ---
Author Organization [employer] Address 75 [facility] 7t [place] [address] Care Team Providers Care Fine Grade Bulldozer Operator Name Role Phone Kristi Bae Primary Care Provider [phone] Lois Gaming NP Primary Care Provider [phone] Kuldeep Matthews RN Unavailable [phone] Deepika Pelletier Unavailable Reason for Visit * Reason Comments Med Refill Encounter Details Date Type Department Care Team (Late st Contact Info) Description 09/12/2023 Refill [facility] 230 [place], [place] [phone] Kristi Bae FNP 230 [place], [place] [phone] Chronic low back pain, unspecified back pain [...] Description 12/30/2024 1:45 PM EST Office Visit [address] [address] Lois Gaming NP [address] [place] [address] 01/15/2025 9:00 AM EST Clinical Support [address] [address] Deborah Logan RN documented as of this encounter Visit Diagnoses Diagnosis Chronic low back pain, unspecified back pain laterality, unspecified whether sciatica present documented in this encounter Additional Health Concerns Assessment Noted Time PHQ-9 Depression Total Score: 22 024 10:32 AM EST documented as of this encounter Care Teams Fine Grade Bulldozer Operator Relationship Specialty Start Date End Date Kristi Bae FNP [address] [place] [address] PCP - General Family Medicine 10/16/22 10/04/23 Lois Gaming NP [address] [place] [address] PCP - General Family Medicine 10/05/23 Kuldeep Matthews, RN [address] [place] [address] [place] [address] Registered Nurse Family Medicine 10/13/24 Deepika Pelletier 10/13/24 [facility] 11/11/23 documented as of this encounter
--- OUTSIDE RECORDS SUMMARY | 2024-12-16 15:02 | XMS_ITS | Patient Health Record ---
Author Organization [facility] Address [address] [place] [address] Care Team Providers Care School Inspector Name Role Phone Shannen Jefferson Primary Care Provider Unavaila Grady Perea Jr Unavailable [phone] Reason For Referral No Information Medications Medication SIG (Take, Route, Frequency, Duration) Notes Start Date End Date Status clonazePAM 1 MG TAKE 1 TABLET BY JORDON TH TWICE DAILY Oral; Duration: 30 Active Mirtazapine 45 MG TAKE 1 TABLET BY JORDON TH AT BEDTIME Oral; Duration: 30 Activ e MiraLax (colon prep) 17 GM/SCOOP mixed with Gatorade or Crystal Light Orally begin at 5:00 p.m. the day before the procedure; Duration: 1 day 02/01/2022 Active Vitamin D3 50 MCG (1999 UT) TAKE 1 CAPSULE BY MOUTH EVERY DAY Oral; Duration: 30 Active Perphenazine 4 MG 1 tablet Orally Twic e a day; Duration: 30 day(s) Active Gabapentin 300 MG TAKE 1 CAPSULE BY MO UTH TWICE DAILY Oral; Duration: 30 Active traMADol HCl 50 MG TAKE 1 TO 2 TABLETS BY MOUTH EVERY 8 HOURS NEEDED Diagnosis Unavailable Oral; Duration: 28 Active rOPINIRole HCl 1 MG TAKE 1 TABLET BY JORDON TH AT BEDTIME Oral; Duration: 30 Activ e Vitamin B-12 1000 MCG TAKE 1 TABLET BY M OUTH EVERY DAY Oral; Duration: 90 Active Narcan 4 MG/0.1ML as directed Nasally as directed Active Trulicity 3 MG/0.5ML INJECT ONE PEN (= 3 MG) SUBCUTANEOUSLY ONCE A WEEK DIRECTED Diagnosis Unavailable Subcutaneous; Duration: 28 Active Simethicone 180 MG 1 capsule after meal s and at bedtime as needed Orally Twice a day Active Lisinopril 20 MG TAKE 1 TABLET BY JORDON TH EVERY DAY Oral; Duration: 30 Active Albuterol Sulfate HFA 108 (90 Base) MCG/ACT 1 puff as needed Inhalation every 4 hrs Active Jardiance 25 MG TAKE 1 TABLET BY JORDON TH EVERY DAY IN THE MORNING Oral; Duration: 30 Active Colace 100 MG 1 capsule as needed Orally Once a day; Duration: 30 day(s) Active Zolpidem Tartrate 10 MG TAKE 1 TABLET BY MOUTH AT BEDTIME NEEDED Oral; Duration: 30 Active Immunizations Vaccine Route Administration Date [...] Problem Status W/U Status Risk Notes Problem Colon cancer screening (274947124) Colon cancer screening (Z12.11) Active confirmed Problem Left lower quadrant pain (433879131) Left lower quadrant pain (R10.32) Active confirmed Plan Of Treatment Future Test Test Name Order Date COLONOSCOPY 02/01/2022 Insurance Providers Payer Name Payer Address Payer Phone Subscriber Number Group Number Insured Name Patient Relationship to Insured Coverage Start Date Coverage End Date [facility] [address] [place] [phone] [id number] BRETT BENTLEY Self - patient is the insured Medical (General) History Medical History History ICD Code hypertension type 2 diabetes Elevated white blood cell count Anxiety/depression Obstructive sleep apnea, not on CPAP Back pain Surgical History Surgery Date(Month/Year) Hospitalization History Reason Date(Month/Year) UTI
--- OUTSIDE RECORDS SUMMARY | 2024-12-16 15:02 | XMS_ITS | Encounter Summary ---
Author Organization [employer] Address 75 [facility] 7t [place] [address] Care Team Providers Care Director Information Name Role Phone Dillon Alcantara AGNMarlon Primary Care Provider Unavail able Kristi BaeP Primary Care Provider [phone] Lois Gaming NP Primary Care Provider [phone] Kuldeep Matthews RN Unavailable [phone] Deepika Pelletier Unavailable Reason for Visit * Reason Comments Med Refill Encounter Details Date Type Department Care Team (Late st Contact Info) Description 02/22/[address] [facility] 230 [place], [place] [phone] Mireya Andersen MD 230 [place], [place] [phone] Numbness of upper extremity (Primary Dx); Low [...] Description 12/30/2024 1:45 PM EST Office Visit [address] [address] Lois Gaming, SHANNA 230 [place] [address] 01/15/2025 9:00 AM EST Clinical Support [address] [address] Deborah Logan, BAM documented as of this encounter Visit Diagnoses Diagnosis Numbness of upper extremity- Primary Low vitamin D level documented in this encounter Additional Health Concerns Assessment Noted Time PHQ-9 Depression Total Score: 17 023 9:10 AM EST documented as of this encounter Care Teams Director Information Relationship Specialty Start Date End Date Dillon Alcantara AGNP PCP - General Family Medicine 01/05/22 10/15/22 Kristi Bae FNP 230 [place] [address] PCP - General Family Medicine 10/16/22 10/04/23 Lois Gaming NP 230 [place] [address] PCP - General Family Medicine 10/05/23 Kuldeep Matthews, RN [address] [place] [address] Registered Nurse Family Medicine 10/13/24 Deepika Pelletier 10/13/24 [facility] 11/11/23 documented as of this encounter
--- OUTSIDE RECORDS SUMMARY | 2024-12-16 15:02 | XMS_ITS | Encounter Summary ---
Author Organization [employer] Address 75 [facility] 7t [place] [address] Care Team Providers Care Finished Cloth Examiner Name Role Phone Lois Gaming NP Primary Care Provider [phone] Kuldeep Matthews RN Unavailable [phone] Deepika Pelletier Unavailable Reason for Visit * Reason Comments Med Refill Encounter Details Date Type Department Care Team ([facility] st Contact Info) Description 12/15/2024 Refill [facility] 230 [place], [place] [phone] Lois Gaming NP [address] [place], [place] [phone] Numbness of upper extremity Social History Tobacco Use Types Packs/Day Years [...] Description 12/30/2024 1:45 PM EST Office Visit [facility] [address] [place] [address] Lois Gaming NP 230 [place] [address] 01/15/2025 9:00 AM EST Clinical Support [address] [address] Deborah Logan RN documented as of this encounter Visit Diagnoses Diagnosis Numbness of upper extremity documented in this encounter Additional Health Concerns Assessment Noted Time PHQ-9 Depression Total Score: 025 10:48 AM EST documented as of this encounter Care Teams Finished Cloth Examiner Relationship Specialty Start Date End Date Lois Gaming NP [address] [place] [address] PCP - General Family Medicine 10/05/23 Kuldeep Matthews RN [address] [place] [address] Registered Nurse Family Medicine 10/13/24 Deepika Pelletier 10/13/24 [facility] 11/11/23 documented as of this encounter
--- OUTSIDE RECORDS SUMMARY | 2024-12-16 15:02 | XMS_ITS | Encounter Summary ---
Author Organization [employer] Address 75 [facility] 7t [place] [address] Care Team Providers Care Golf Manager Name Role Phone Lois Gaming NP Primary Care Provider [phone] Kuldeep Matthews RN Unavailable [phone] Deepika Pelletier Unavailable Reason for Visit * Reason Onset Date Comments PT-1 10/08/2024 Encounter Details Date Type Department Care Team (Late st Contact Info) Description 10/08/2024 Telephone [facility] 230 [place], [place] [phone] Lois Gaming NP 230 [place], [place] [phone] PT-1 Social History Tobacco Use Types Packs/Day [...] Y/N: Yes Provider name or facility name: [facility] Facility Address: [address] [place] [address] Escort needed: Y/N: No Do you have a wheelchair: Y/N: No If yes- Manual or electric: N/A Visits: Twice a week documented in this encounter Plan of Treatment Upcoming Encounters Date Type Department Care Team (Late st Contact Info) Description 12/30/2024 1:45 PM EST Office Visit [facility] [address] [place] [address] Lois Gaming NP [address] [place] [address] 01/15/2025 9:00 AM EST Clinical Support [address] [address] Deborah Logan RN documented as of this encounter Visit Diagnoses Not on filedocumented in this encounter Additional Health Concerns Assessment Noted Time PHQ-9 Depression Total Score: 24 025 10:48 AM EST documented as of this encounter Care Teams Golf Manager Relationship Specialty Start Date End Date Lois Gaming NP 230 [place] [address] PCP - General Family Medicine 10/05/23 Kuldeep Matthews, BAM [address] [place] [address] Registered Nurse Family Medicine 10/13/24 Deepika Pelletier 10/13/24 [facility] 11/11/23 documented as of this encounter
--- OUTSIDE RECORDS SUMMARY | 2024-12-16 15:02 | XMS_ITS | Encounter Summary ---
Author Organization [employer] Address 75 [facility] 7t [place] [address] Care Team Providers Care Epidemiology Internship Name Role Phone Kristi Bae Primary Care Provider [phone] Lois Gaming NP Primary Care Provider [phone] Kuldeep Matthews RN Unavailable [phone] Deepika Pelletier Unavailable Reason for Visit * Reason Onset Date Comments PT1 12/18/2022 Encounter Details Date Type Department Care Team (Late st Contact Info) Description 12/18/2022 Telephone [facility] 230 [place], [place] [phone] Kristi Bae FNP 230 [place], [place] [phone] PT1 Social History Tobacco Use Types Packs/Day [...] 12/19/2022 10:12 AM EST PT-1 Request Number [id number] is Pending * Telephone Encounter - Batsheva Huffman - 12/18/2022 8:22 AM EST PT1 Name of facility: [facility] Specialty: Future Appt's Location: [address] [place] [address] Date: N/a Time: n/a fax: [phone] wheelchair: No Projector Booth Operator: No All future visits within the Clinic. Phone number and Address Verified. documented in this encounter Plan of Treatment Upcoming Encounters Date Type Department Care Team ([facility] st Contact Info) Description 12/30/2024 1:45 PM EST Office Visit [facility] [address] [place] [address] Lois Gaming NP [address] [place] [address] 01/15/2025 9:00 AM EST Clinical Support [facility] [address] [place] [address] Deborah Logan, RN documented as of this encounter Visit Diagnoses Not on filedocumented in this encounter Additional Health Concerns Assessment Noted Time PHQ-9 Depression Total Score: 17 023 9:10 AM EST documented as of this encounter Care Teams Epidemiology Internship Relationship Specialty Start Date End Date Kristi Bae FNP 230 [place] [address] PCP - General Family Medicine 10/16/22 10/04/23 Lois Gaming NP 230 [place] [address] PCP - General Family Medicine 10/05/23 Kuldeep Matthews, BAM [address] [place] [address] Registered Nurse Family Medicine 10/13/24 Deepika Pelletier 10/13/24 [facility] 11/11/23 documented as of this encounter
--- OUTSIDE RECORDS SUMMARY | 2024-12-16 15:02 | XMS_ITS | Encounter Summary ---
Author Organization [employer] Address 75 [facility] 7t [place] [address] Care Team Providers Care Cash Application Representative Name Role Phone Kristi Bae Primary Care Provider [phone] Lois Gaming NP Primary Care Provider [phone] Kuldeep Matthews RN Unavailable [phone] Deepika Pelletier Unavailable Reason for Visit * Reason Comments Med Refill Encounter Details Date Type Department Care Team (Late st Contact Info) Description 11/14/2022 Refill [facility] 230 [place], [place] [phone] Kristi Bae FNP 230 [place] [address] Chronic low back pain, unspecified back pain [...] Description 12/30/2024 1:45 PM EST Office Visit [address] [address] Lois Gaming NP [address] [place] [address] 01/15/2025 9:00 AM EST Clinical Support [address] [address] Deborah Logan RN documented as of this encounter Visit Diagnoses Diagnosis Chronic low back pain, unspecified back pain laterality, unspecified whether sciatica present documented in this encounter Additional Health Concerns Assessment Noted Time PHQ-9 Depression Total Score: 17 023 9:10 AM EST documented as of this encounter Care Teams Cash Application Representative Relationship Specialty Start Date End Date Kristi Bae FNP [address] [place] [address] PCP - General Family Medicine 10/16/22 10/04/23 Lois Gaming NP [address] [place] [address] PCP - General Family Medicine 10/05/23 Kuldeep Matthews, RN [address] [place] [address] Registered Nurse Family Medicine 10/13/24 Deepika Pelletier 10/13/24 [facility] 11/11/23 documented as of this encounter
--- OUTSIDE RECORDS SUMMARY | 2024-12-16 15:02 | XMS_ITS | Encounter Summary ---
Author Organization [employer] Address [address] [facility] [address] 7t [place] [address] Care Team Providers Care Search Engine Marketing Strategist Name Role Phone Lois Gaming NP Primary Care Provider [phone] Kuldeep Matthews RN Unavailable [phone] Deepika Pelletier Unavailable Reason for Visit * Reason Onset Date Comments Med Refill 12/11/2024 Encounter Details Date Type Department Care Team (Late st Contact Info) Description 12/11/[address] [facility] [address] [place] [address] Lois Gaming, SHANNA 230 [facility] [place] [address] Social History Tobacco Use Types Packs/Day Years [...] Telephone Encounter - Windy Donahue LPN - 12/11/2024 1:02 PM EST Last seen 09/26/24. documented in this encounter Plan of Treatment Upcoming Encounters Date Type Department Care Team ([facility] st Contact Info) Description 12/30/2024 1:45 PM EST Office Visit [facility]INE 230 [place] [address] Lois Gaming NP 230 [place] [address] 01/15/2025 9:00 AM EST Clinical Support [facility] 230 [place], [place] [phone] Deborah Logan, RN documented as of this encounter Visit Diagnoses Not on filedocumented in this encounter Additional Health Concerns Assessment Noted Time PHQ-9 Depression Total Score: 24 025 10:48 AM EST documented as of this encounter Care Teams Search Engine Marketing Strategist Relationship Specialty Start Date End Date Lois Gaming NP 230 [place] [address] PCP - General Family Medicine 10/05/23 Kuldeep Matthews, RN [address] [place] [address] Registered Nurse Family Medicine 10/13/24 Deepika Pelletier 10/13/24 [facility] 11/11/23 documented as of this encounter
--- OUTSIDE RECORDS SUMMARY | 2024-12-16 15:02 | XMS_ITS | Encounter Summary ---
Author Organization [employer] Address 75 [facility] 7t [place] [address] Care Team Providers Care Traffic Administrator Name Role Phone Kristi Bae Primary Care Provider [phone] Lois Gaming NP Primary Care Provider [phone] Kuldeep Matthews RN Unavailable [phone] Deepika Pelletier Unavailable Reason for Visit * Reason Onset Date Comments Med Refill 01/22/2023 Encounter Details Date Type Department Care Team (Late st Contact Info) Description 01/22/2023 Telephone [facility] 230 [place], [place] [phone] Kristi Bae FNP 230 [place], [place] [phone] Med Refill Social History Tobacco Use Types [...] solution pen- injector to be sent to [facility] [place], [place] - [address] [place] [address] documented in this encounter Plan of Treatment Upcoming Encounters Date Type Department Care Team ([facility] st Contact Info) Description 12/30/2024 1:45 PM EST Office Visit [facility] [address] [place] [address] Lois Gaming NP 230 [place] [address] 01/15/2025 9:00 AM EST Clinical Support [facility] [address] [place] [address] Deborah Logan RN documented as of this encounter Visit Diagnoses Not on filedocumented in this encounter Additional Health Concerns Assessment Noted Time PHQ-9 Depression Total Score: 17 023 9:10 AM EST documented as of this encounter Care Teams Traffic Administrator Relationship Specialty Start Date End Date Kristi Bae FNP 230 [place] [address] PCP - General Family Medicine 10/16/22 10/04/23 Lois Gaming NP [address] [place] [address] PCP - General Family Medicine 10/05/23 Kuldeep Matthews, BAM [address] [place] [address] Registered Nurse Family Medicine 10/13/24 Deepika Pelletier 10/13/24 [facility] 11/11/23 documented as of this encounter
--- OUTSIDE RECORDS SUMMARY | 2024-12-16 15:02 | XMS_ITS | Encounter Summary ---
Author Organization [employer] Address 75 [facility] 7t [place] [address] Care Team Providers Care Transformation Analyst Name Role Phone Dillon Alcantara Primary Care Provider Unavail able Kristi BaeP Primary Care Provider [phone] Lois Gaming NP Primary Care Provider [phone] Kuldeep Matthews RN Unavailable [phone] Deepika Pelletier Unavailable Reason for Visit * Reason Comments Med Refill Encounter Details Date Type Department Care Team (Late st Contact Info) Description 06/22/2022 Refill [facility] MEDICINE [address] [place] [address] Dillon Alcantara AGNP Chronic low back pain, [...] Description 12/30/2024 1:45 PM EST Office Visit [address] [address] Lois Gaming NP [address] [place] [address] 01/15/2025 9:00 AM EST Clinical Support [address] [address] Deborah Logan, BAM documented as of this encounter Visit Diagnoses Diagnosis Chronic low back pain, unspecified back pain laterality, unspecified whether sciatica present documented in this encounter Additional Health Concerns Assessment Noted Time PHQ-9 Depression Total Score: 17 023 9:10 AM EST documented as of this encounter Care Teams Transformation Analyst Relationship Specialty Start Date End Date Dillon Alcantara AGNP PCP - General Family Medicine 01/05/22 10/15/22 Kristi Bae FNP [address] [place] [address] PCP - General Family Medicine 10/16/22 10/04/23 Lois Gaming NP [address] [place] [address] PCP - General Family Medicine 10/05/23 Kuldeep Matthews, RN [address] [place] [address] Registered Nurse Family Medicine 10/13/24 Deepika Pelletier 10/13/24 [facility] 11/11/23 documented as of this encounter
--- OUTSIDE RECORDS SUMMARY | 2024-12-16 15:02 | XMS_ITS | Encounter Summary ---
Author Organization [employer] Address 75 [facility] 7t [place] [address] Care Team Providers Care Mine Supervisor Name Role Phone Kristi Bae Primary Care Provider [phone] Lois Gaming NP Primary Care Provider [phone] Kuldeep Matthews RN Unavailable [phone] Deepika Pelletier Unavailable Reason for Visit * Reason Comments Med Refill Encounter Details Date Type Department Care Team (Late st Contact Info) Description 11/14/2022 Refill [facility] MEDICINE 230 [place], [place] [phone] Kristi aBe FNP 230 [place] [address] Chronic low back pain, unspecified back pain [...] 12/30/2024 1:45 PM EST Office Visit [address] [address] Lois Gaming NP [address] [place] [address] 01/15/2025 9:00 AM EST Clinical Support [address] [address] Deborah Logan RN documented as of this encounter Visit Diagnoses Diagnosis Chronic low back pain, unspecified back pain laterality, unspecified whether sciatica present documented in this encounter Additional Health Concerns Assessment Noted Time PHQ-9 Depression Total Score: 17 023 9:10 AM EST documented as of this encounter Care Teams Mine Supervisor Relationship Specialty Start Date End Date Kristi Bae FNP [address] [place] [address] PCP - General Family Medicine 10/16/22 10/04/23 Lois Gaming NP [address] [place] [address] PCP - General Family Medicine 10/05/23 Kuldeep Matthews, RN [address] [place] [address] Registered Nurse Family Medicine 10/13/24 Deepika Pelletier 10/13/24 [facility] 11/11/23 documented as of this encounter
--- OUTSIDE RECORDS SUMMARY | 2024-12-16 15:02 | XMS_ITS | Encounter Summary ---
Author Organization [employer] Address 75 [facility] 7t [place] [address] Care Team Providers Care Director Social Service Name Role Phone Lois Gaming NP Primary Care Provider [phone] Kuldeep Matthews RN Unavailable [phone] Depeika Pelletier Unavailable Reason for Visit * Reason Onset Date Comments Nurse Triage 04/29/2024 Encounter Details Date Type Department Care Team ([facility] st Contact Info) Description 04/29/2024 Telephone [facility] MEDICINE 230 [place], [place] [phone] Lois Gaming NP [address] [place], [place] [phone] Nurse Triage Social History Tobacco Use Types [...] hand normally The caller accepted this outcome. [phone] Pt states while sleeping the diabetes sensor beeped and indicated low sugar (48, 55 and 67) but when the pt took it reading was 100 and 105. Pt states sweated a lot during the night. documented in this encounter Plan of Treatment Upcoming Encounters Date Type Department Care Team (Late st Contact Info) Description 12/30/2024 1:45 PM EST Office Visit [facility] MEDICINE 230 [place] [address] Lois Gaming NP [address] [place], [place] [phone] 01/15/2025 9:00 AM EST Clinical Support [facility] MEDICINE [address] [place] [address] Deborah Logan, BAM documented as of this encounter Visit Diagnoses Not on filedocumented in this encounter Additional Health Concerns Assessment Noted Time PHQ-9 Depression Total Score: 24 04/11/ 025 10:48 AM EST documented as of this encounter Care Teams Director Social Service Relationship Specialty Start Date End Date Lois Gaming NP [address] [place] [address] PCP - General Family Medicine 10/05/23 Kuldeep Matthews, BAM [address] [place] [address] Registered Nurse Family Medicine 10/13/24 Deepika Pelletier 10/13/24 [facility] 11/11/23 documented as of this encounter
--- OUTSIDE RECORDS SUMMARY | 2024-12-16 15:02 | XMS_ITS | Encounter Summary ---
Author Organization [employer] Address [address] [facility] [address] 7t [place] [address] Care Team Providers Care Water Main Pipe Layer Name Role Phone Kristi Bae EARLY CHILDHOOD EDUCATOR AIDE Primary Care Provider [phone] Lois Gaming NP Primary Care Provider [phone] Kuldeep Matthews RN Unavailable [phone] Deepika Pelletier Unavailable Reason for Visit * Reason Comments Med Refill Encounter Details Date Type Department Care Team (Late st Contact Info) Description 03/06/2023 Refill [facility] MEDICINE 230 [place] [address] Dillon Alcantara AGNP Social History Tobacco Use [...] Description 12/30/2024 1:45 PM EST Office Visit [address] [address] Lois Gaming NP [address] [place] [address] 01/15/2025 9:00 AM EST Clinical Support [address] [address] Deborah Logan RN documented as of this encounter Visit Diagnoses Not on filedocumented in this encounter Additional Health Concerns Assessment Noted Time PHQ-9 Depression Total Score: 22 024 10:32 AM EST documented as of this encounter Care Teams Water Main Pipe Layer Relationship Specialty Start Date End Date Kristi Bae FNP [address] [place] [address] PCP - General Family Medicine 10/16/22 10/04/23 Lois Gaming NP [address] [place] [address] PCP - General Family Medicine 10/05/23 Kuldeep Matthews RN [address] [place] [address] Registered Nurse Family Medicine 10/13/24 Deepika Pelletier 10/13/24 [facility] 11/11/23 documented as of this encounter
--- OUTSIDE RECORDS SUMMARY | 2024-12-16 15:02 | XMS_ITS | Encounter Summary ---
Author Organization [employer] Address [address] [facility] [address] 7t [place] [address] Care Team Providers Care Geotechnical Engineering Technician Name Role Phone Mekhi Lois SHANNA Primary Care Provider [phone] Kuldeep Matthews RN Unavailable [phone] Deepika Pelletier Unavailable Encounter Details Date Type Department Care Team (Late st Contact Info) Description 10/08/2023 Orders Only [facility] [address] [place] [address] Kristi Bae FNP 230 [place] [address] Social History Tobacco Use Types Packs/Day Years [...] Description 12/30/2024 1:45 PM EST Office Visit [address] [address] Lois Gaming NP [address] [place] [address] 01/15/2025 9:00 AM EST Clinical Support [address] [address] Deborah Logan RN documented as of this encounter Visit Diagnoses Not on filedocumented in this encounter Additional Health Concerns Assessment Noted Time PHQ-9 Depression Total Score: 22 024 10:32 AM EST documented as of this encounter Care Teams Geotechnical Engineering Technician Relationship Specialty Start Date End Date Lois Gaming NP [address] [place] [address] PCP - General Family Medicine 10/05/23 Kuldeep Matthews, RN [address] [place] [address] Registered Nurse Family Medicine 10/13/24 Deepika Pelletier 10/13/24 [facility] 11/11/23 documented as of this encounter
--- OUTSIDE RECORDS SUMMARY | 2024-12-16 15:02 | XMS_ITS | Encounter Summary ---
Author Organization [employer] Address [address] [facility] [address] 7t [place] [address] Care Team Providers Care Roundsman Name Role Phone Kristi aBe SPECIMEN PROCESSOR Primary Care Provider [phone] Lois Gaming NP Primary Care Provider [phone] Kuldeep Matthews RN Unavailable [phone] Deepika Pelletier Unavailable Reason for Visit * Reason Comments Med Refill Encounter Details Date Type Department Care Team (Late st Contact Info) Description 01/22/2023 Refill [facility] MEDICINE 230 [place] [address] Dillon Alcantara AGNP Social History Tobacco Use [...] Description 12/30/2024 1:45 PM EST Office Visit [address] [address] Lois Gaming NP [address] [place] [address] 01/15/2025 9:00 AM EST Clinical Support [address] [address] Deborah Logan RN documented as of this encounter Visit Diagnoses Not on filedocumented in this encounter Additional Health Concerns Assessment Noted Time PHQ-9 Depression Total Score: 17 023 9:10 AM EST documented as of this encounter Care Teams Roundsman Relationship Specialty Start Date End Date Kristi Bae FNP [address] [place] [address] PCP - General Family Medicine 10/16/22 10/04/23 Lois Gaming NP [address] [place] [address] PCP - General Family Medicine 10/05/23 Kuldeep Matthews, RN [address] [place] [address] Registered Nurse Family Medicine 10/13/24 Deepika Pelletier 10/13/24 [facility] 11/11/23 documented as of this encounter
--- OUTSIDE RECORDS SUMMARY | 2024-12-16 15:02 | XMS_ITS | Encounter Summary ---
Author Organization [employer] Address [address] [facility] [address] 7t [place] [address] Care Team Providers Care Stitcher Operator Name Role Phone Lois Gaming NP Primary Care Provider [phone] Kuldeep Matthews RN Unavailable [phone] Deepika Pelletier Unavailable Reason for Visit * Reason Comments Med Refill Encounter Details Date Type Department Care Team ([facility] st Contact Info) Description 02/18/2024 Refill [facility] MEDICINE 230 [place], [place] [phone] Lois Gaimng NP 230 [place], [place] [phone] Encounter for management of wound VAC Social [...] 12/30/2024 1:45 PM EST Office Visit [address] [address] Lois Gaming NP [address] [place] [address] 01/15/2025 9:00 AM EST Clinical Support [address] [address] Deborah Logan RN documented as of this encounter Visit Diagnoses Diagnosis Encounter for management of wound VAC documented in this encounter Additional Health Concerns Assessment Noted Time PHQ-9 Depression Total Score: 23 024 3:28 PM EST documented as of this encounter Care Teams Stitcher Operator Relationship Specialty Start Date End Date Lois Gaming NP 230 [place] [address] PCP - General Family Medicine 10/05/23 Kuldeep Matthews, BAM [address] [place] [address] Registered Nurse Family Medicine 10/13/24 Deepika Pelletier 10/13/24 [facility] 11/11/23 documented as of this encounter
--- OUTSIDE RECORDS SUMMARY | 2024-12-16 15:02 | XMS_ITS | Encounter Summary ---
Author Organization [employer] Address 75 [facility] 7t [place] [address] Care Team Providers Care Electrical And Instrument Engineer Name Role Phone Lois Gaming NP Primary Care Provider [phone] Kuldeep Matthews RN Unavailable [phone] Deepika Pelletier Unavailable Reason for Visit * Reason Onset Date Comments Prior Authorization 02/15/2024 Encounter Details Date Type Department Care Team (Late st Contact Info) Description 02/15/2024 Telephone [facility] MEDICINE 230 [place], [place] [phone] Lois Gaming NP 230 [place], [place] [phone] Prior Authorization Social History Tobacco Use Types [...] to pcp for review and signature via [employer]. * Telephone Encounter - Mile Chairez - 02/18/2024 9:20 AM EST Tc from pt requesting a PA for medication (Tramadol) as he been calling since last week. * Telephone Encounter - Washington Solorzano - 02/15/2024 1:06 PM EST Tc from pt stating Tramadol needs a medication refill. Please contact pt at [phone]. (Turkmen Speaker) documented in this encounter Plan of Treatment Upcoming Encounters Date Type Department Care Team (Late st Contact Info) Description 12/30/2024 1:45 PM EST Office Visit [address] [address] Lois Gaming NP 230 [place] [address] 01/15/2025 9:00 AM EST Clinical Support [address] [address] Deborah Logan, BAM documented as of this encounter Visit Diagnoses Not on filedocumented in this encounter Additional Health Concerns Assessment Noted Time PHQ-9 Depression Total Score: 23 024 3:28 PM EST documented as of this encounter Care Teams Electrical And Instrument Engineer Relationship Specialty Start Date End Date Lois Gaming NP 230 [place] [address] PCP - General Family Medicine 10/05/23 Kuldeep Matthews, RN 505 [place] [address] Registered Nurse Family Medicine 10/13/24 Deepika Pelletier 10/13/24 [facility] 11/11/23 documented as of this encounter
--- OUTSIDE RECORDS SUMMARY | 2024-12-16 15:02 | XMS_ITS | Encounter Summary ---
Author Organization [employer] Address 75 [facility] 7t [place] [address] Care Team Providers Care System Development Manager Name Role Phone Dillon Alcantara AGNMarlon Primary Care Provider Unavail able Kristi BaeP Primary Care Provider [phone] Lois Gaming NP Primary Care Provider [phone] Kuldeep Matthews RN Unavailable [phone] Deepika Pelletier Unavailable Reason for Visit * Reason Comments Med Refill Encounter Details Date Type Department Care Team (Late st Contact Info) Description 02/22/2022 Refill [facility] MEDICINE 230 [place] [address] Kaylynn Whiting MD 505 [place] [address] Chronic pain of both knees Social History [...] Description 12/30/2024 1:45 PM EST Office Visit [address] [address] Lois Gaming, SHANNA [address] [place] [address] 01/15/2025 9:00 AM EST Clinical Support [address] [address] Deboarh Logan, BAM documented as of this encounter Visit Diagnoses Diagnosis Chronic pain of both knees documented in this encounter Additional Health Concerns Assessment Noted Time PHQ-9 Depression Total Score: 17 023 9:10 AM EST documented as of this encounter Care Teams System Development Manager Relationship Specialty Start Date End Date Dillon Alcantara AGNP PCP - General Family Medicine 01/05/22 10/15/22 Kristi Bae FNP [address] [place] [address] PCP - General Family Medicine 10/16/22 10/04/23 oLis Gaming NP [address] [place] [address] PCP - General Family Medicine 10/05/23 Kuldeep Matthews, RN [address] [place] [address] Registered Nurse Family Medicine 10/13/24 Deepika Pelletier 10/13/24 [facility] 11/11/23 documented as of this encounter
--- OUTSIDE RECORDS SUMMARY | 2024-12-16 15:02 | XMS_ITS | Encounter Summary ---
Author Organization [employer] Address 75 [facility] 7t [place] [address] Care Team Providers Care Associate Genetics Professor Name Role Phone Lois Gaming NP Primary Care Provider [phone] Kuldeep Matthews RN Unavailable [phone] Deepika Pelletier Unavailable Reason for Visit * Reason Onset Date Comments Med Refill 10/27/2024 Encounter Details Date Type Department Care Team (Late st Contact Info) Description 10/27/2024 Telephone [facility] MEDICINE 230 [place], [place] [phone] Lois Gaming NP 230 [place], [place] [phone] Med Refill Social History Tobacco Use Types [...] the past 12 months, has t he [employer], gas, oil or water company threatened to [...] MG tablet To be sent to: - [facility][id number] - [place] - [address] [facility] documented in this encounter Plan of Treatment Upcoming Encounters Date Type Department Care Team (Late st Contact Info) Description 12/30/2024 1:45 PM EST Office Visit [address] [address] Lois Gaming NP [address] [place] [address] 01/15/2025 9:00 AM EST Clinical Support [address] [address] Deborah Logan, BAM documented as of this encounter Visit Diagnoses Not on filedocumented in this encounter Additional Health Concerns Assessment Noted Time PHQ-9 Depression Total Score: 24 025 10:48 AM EST documented as of this encounter Care Teams Associate Genetics Professor Relationship Specialty Start Date End Date Lois Gaming NP [address] [place] [address] PCP - General Family Medicine 10/05/23 Kuldeep Matthews, RN 505 [place] [address] Registered Nurse Family Medicine 10/13/24 Deepika Pelletier 10/13/24 [facility] 11/11/23 documented as of this encounter
--- OUTSIDE RECORDS SUMMARY | 2024-12-16 15:02 | XMS_ITS | Encounter Summary ---
Author Organization [employer] Address 75 [facility] 7t [place] [address] Care Team Providers Care Angle Roll Operator Name Role Phone Lois Gaming NP Primary Care Provider [phone] Kuldeep Matthews RN Unavailable [phone] Deepika Pelletier Unavailable Reason for Visit * Reason Onset Date Comments Call Back Request 07/30/2024 Encounter Details Date Type Department Care Team ([facility] st Contact Info) Description 07/30/2024 Telephone [facility] MEDICINE 230 [place], [place] [phone] Lois Gaming NP 230 [place], [place] [phone] Call Back Request Social History Tobacco Use [...] like to clarify. Please contact pt at [phone]. documented in this encounter Plan of Treatment Upcoming Encounters Date Type Department Care Team (Late st Contact Info) Description 12/30/2024 1:45 PM EST Office Visit [address] [address] Lois Gaming NP 230 [place] [address] 01/15/2025 9:00 AM EST Clinical Support [address] [address] Deborah Logan, RN documented as of this encounter Visit Diagnoses Not on filedocumented in this encounter Additional Health Concerns Assessment Noted Time PHQ-9 Depression Total Score: 24 025 10:48 AM EST documented as of this encounter Care Teams Angle Roll Operator Relationship Specialty Start Date End Date Lois Gaming NP 230 [place] [address] PCP - General Family Medicine 10/05/23 Kuldeep Matthews, BAM 505 [place] [address] Registered Nurse Family Medicine 10/13/24 Deepika Pelletier 10/13/24 [facility] 11/11/23 documented as of this encounter
--- OUTSIDE RECORDS SUMMARY | 2024-12-16 15:02 | XMS_ITS | Encounter Summary ---
Author Organization [employer] Address 75 [facility] 7t [place] [address] Care Team Providers Care Digital Marketing Executive Name Role Phone Dillon Alcantara AGNMarlon Primary Care Provider Unavail able Kristi BaeP Primary Care Provider [phone] Lois Gaming NP Primary Care Provider [phone] Kuldeep Matthews RN Unavailable [phone] Deepika Pelletier Unavailable Reason for Visit * Reason Comments Med Refill Encounter Details Date Type Department Care Team (Late st Contact Info) Description 02/22/2022 Refill [facility] MEDICINE 230 [place] [address] Kaylynn Whiting MD 505 [place] [address] Chronic pain of both knees Social History [...] Description 12/30/2024 1:45 PM EST Office Visit [address] [address] Lois Gaming, SHANNA [address] [place] [address] 01/15/2025 9:00 AM EST Clinical Support [address] [address] Deborah Logan, BAM documented as of this encounter Visit Diagnoses Diagnosis Chronic pain of both knees documented in this encounter Additional Health Concerns Assessment Noted Time PHQ-9 Depression Total Score: 17 023 9:10 AM EST documented as of this encounter Care Teams Digital Marketing Executive Relationship Specialty Start Date End Date Dillon Alcantara AGNP PCP - General Family Medicine 01/05/22 10/15/22 Kristi Bae FNP [address] [place] [address] PCP - General Family Medicine 10/16/22 10/04/23 Lois Gaming NP [address] [place] [address] PCP - General Family Medicine 10/05/23 Kuldeep Matthews, RN [address] [place] [address] Registered Nurse Family Medicine 10/13/24 Deepika Pelletier 10/13/24 [facility] 11/11/23 documented as of this encounter
--- OUTSIDE RECORDS SUMMARY | 2024-12-16 15:02 | XMS_ITS ---
Author Organization [employer] Address 75 [facility] 7t [place] [address] Care Team Providers Care Photographer Apprentice Name Role Phone Lois Gaming NP Primary Care Provider [phone] Kuldeep Matthews RN Unavailable [phone] Deepika Pelletier Unavailable CM Complex Status:Enrolled (Active) Start date:10/13/2024 Enrollment date:10/23/2024 Enrollment reason:ADT Feed Overview ED- Pt went to [facility] on 10/12/24. Case Team Name Relationship Phone Kuldeep Matthews RN(Responsible Staff) Registered [facility] [phone] Continued Care and Services Coordination
--- OUTSIDE RECORDS SUMMARY | 2024-12-16 15:02 | XMS_ITS | Encounter Summary ---
Author Organization [employer] Address 75 [facility] 7t [place] [address] Care Team Providers Care Cardiovascular Rn Name Role Phone Dillon Alcantara Primary Care Provider Unavail able Kristi BaeP Primary Care Provider [phone] Lois Gaming NP Primary Care Provider [phone] Kuldeep Matthews RN Unavailable [phone] Deepika Pelletier Unavailable Reason for Visit * Reason Onset Date Comments Appointment Request 02/02/2022 Encounter Details Date Type Department Care Team (Late Contact Info) Description 02/02/[address] [phone] Dillon Alcantara AGNP Appointment Request Social History [...] 8:34 AM EST Tc from Deepika from [facility] requesting a TP appt. documented in this encounter Plan of Treatment Upcoming Encounters Date Type Department Care Team (Late Contact Info) Description 12/30/2024 1:45 PM EST Office Visit [facility] MEDICINE 230 [place] [address] Lois Gaming, SHANNA 230 [place] [address] 01/15/2025 9:00 AM EST Clinical Support [facility] MEDICINE 230 [place], [place] [phone] Deborah Logan, RN documented as of this encounter Visit Diagnoses Not on filedocumented in this encounter Care Teams Cardiovascular Rn Relationship Specialty Start Date End Date Dillon Alcantara AGNP PCP - General Family Medicine 01/05/22 10/15/22 Kristi Bae FNP 230 [place] [address] PCP - General Family Medicine 10/16/22 10/04/23 Lois Gaming, SHANNA [address] [place] [phone] PCP - General Family Medicine 10/05/23 Kuldeep Matthews, BAM [address] [place] [address] Registered Nurse Family Medicine 10/13/24 Deepika Pelletier 10/13/24 [facility] 11/11/23 documented as of this encounter
--- OUTSIDE RECORDS SUMMARY | 2024-12-16 15:02 | XMS_ITS | Encounter Summary ---
Author Organization [employer] Address [address] [facility] [address]t [place] [address] Care Team Providers Care Test Director Name Role Phone Dillon Alcantara Primary Care Provider Unavail able Kristi BaeP Primary Care Provider [phone] Lois Gaming NP Primary Care Provider [phone] Kuldeep Matthews RN Unavailable [phone] Deepika Pelletier Unavailable Reason for Visit * Reason Onset Date Comments Durable Medical Equipment 06/07/2022 Encounter Details Date Type Department Care Team (Late st Contact Info) Description 06/07/2022 Telephone [facility] MEDICINE [address] [place] [address] Dillon Alcantara AGNP Durable Medical Equipment Social [...] encounter Miscellaneous Notes * Telephone Encounter - eDborah Logan RN - 06/15/2022 9:07 AM EDT Jackeline, had VISUAL C DEVELOPER visit today: States he has been taking [...] 06/07/2022 12:23 PM EDT Tc from Heather caser in from [facility] requesting a quad cane and shower handle that can be screwed to the wall . Any questions may contact phone # [phone]. documented in this encounter Plan of Treatment Upcoming Encounters Date Type Department Care Team (Late st Contact Info) Description 12/30/2024 1:45 PM EST Office Visit [address] [address] Lois Gaming NP [address] [place] [address] 01/15/2025 9:00 AM EST Clinical Support [address] [address] Deborah Logan RN documented as of this encounter Visit Diagnoses Not on filedocumented in this encounter Additional Health Concerns Assessment Noted Time PHQ-9 Depression Total Score: 17 023 9:10 AM EST documented as of this encounter Care Teams Test Director Relationship Specialty Start Date End Date Dillon Alcantara AGNP PCP - General Family Medicine 01/05/22 10/15/22 Kristi Bae FNP [address] [place] [address] PCP - General Family Medicine 10/16/22 10/04/23 Lois Gaming NP [address] [place] [address] PCP - General Family Medicine 10/05/23 Kuldeep Matthews, BAM [address] [place] [address] Registered Nurse Family Medicine 10/13/24 Deepika Pelletier 10/13/24 [facility] 11/11/23 documented as of this encounter
--- OUTSIDE RECORDS SUMMARY | 2024-12-16 15:03 | XMS_ITS | Encounter Summary ---
Author Organization [employer] Address [address] [facility] 7t [place] [address] Care Team Providers Care Impregnator Operator Name Role Phone Kristi Bae Primary Care Provider [phone] Lois Gaming NP Primary Care Provider [phone] Kuldeep Matthews RN Unavailable [phone] Deepika Pelletier Unavailable Reason for Visit * Reason Comments Med Refill Encounter Details Date Type Department Care Team (Late st Contact Info) Description 03/12/2023 Refill [facility] MEDICINE [address] [place], [place] [phone] Kristi Bae FNP [address] [place], [place] [phone] Social History Tobacco Use Types Packs/Day Years [...] Description 12/30/2024 1:45 PM EST Office Visit [address] [address] Lois Gaming NP [address] [place] [address] 01/15/2025 9:00 AM EST Clinical Support [address] [address] Deborah Logan RN documented as of this encounter Visit Diagnoses Not on filedocumented in this encounter Additional Health Concerns Assessment Noted Time PHQ-9 Depression Total Score: 22 024 10:32 AM EST documented as of this encounter Care Teams Impregnator Operator Relationship Specialty Start Date End Date Kristi Bae FNP [address] [place] [address] PCP - General Family Medicine 10/16/22 10/04/23 Lois Gaming NP [address] [place] [address] PCP - General Family Medicine 10/05/23 Kuldeep Matthews, RN [address] [place] [phone] Registered Nurse Family Medicine 10/13/24 Deepika Pelletier 10/13/24 [facility] 11/11/23 documented as of this encounter
--- OUTSIDE RECORDS SUMMARY | 2024-12-16 15:03 | XMS_ITS | Encounter Summary ---
Author Organization [employer] Address [address] [facility] 7t [place] [address] Care Team Providers Care Cupola Liner Helper Name Role Phone Kristi Bae Primary Care Provider [phone] Lois Gaming NP Primary Care Provider [phone] Kuldeep Matthews RN Unavailable [phone] Deepika Pelletier Unavailable Reason for Visit * Reason Onset Date Comments Med Refill 05/02/2023 Encounter Details Date Type Department Care Team (Late st Contact Info) Description 05/02/[address] [facility] MEDICINE [address] [place], [place] [phone] Kristi Bae FNP [address] [place], [place] [phone] Med Refill Social History Tobacco Use Types [...] 1000 MCG tablet To be sent to: [id number] - [place], [place] - [address] [facility] [place] documented in this encounter Plan of Treatment Upcoming Encounters Date Type Department Care Team (Norman st Contact Info) Description 12/30/2024 1:45 PM EST Office Visit [facility] MEDICINE [address] [place] [address] Lois Gaming NP [address] [place] [address] 01/15/2025 9:00 AM EST Clinical Support [facility] MEDICINE [address] [place] [address] Deborah Logan, RN documented as of this encounter Visit Diagnoses Not on filedocumented in this encounter Additional Health Concerns Assessment Noted Time PHQ-9 Depression Total Score: 22 024 10:32 AM EST documented as of this encounter Care Teams Cupola Liner Helper Relationship Specialty Start Date End Date Kristi Bae FNP [address] [place] [address] PCP - General Family Medicine 10/16/22 10/04/23 Lois Gaming NP [address] [place] [address] PCP - General Family Medicine 10/05/23 Kuldeep Matthews RN [address] [place] [address] Registered Nurse Family Medicine 10/13/24 Deepika Pelletier 10/13/24 [facility] 11/11/23 documented as of this encounter
--- OUTSIDE RECORDS SUMMARY | 2024-12-16 15:03 | XMS_ITS | Encounter Summary ---
Author Organization [employer] Address [address] [facility] 7t [place] [address] Care Team Providers Care Laser Print Operator Name Role Phone Kristi Bae Primary Care Provider [phone] Lois Gaming NP Primary Care Provider [phone] Kuldeep Matthews RN Unavailable [phone] Deepika Pelletier Unavailable Reason for Visit * Reason Onset Date Comments Medication Question 03/09/2023 Encounter Details Date Type Department Care Team (Late st Contact Info) Description 03/09/2023 Telephone [facility] MEDICINE [address] [place], [place] [phone] Kristi Bae FNP [address] [place], [place] [phone] Medication Question Social History Tobacco Use Types [...] - 03/13/2023 9:48 AM EST T/C to [facility] pharmacy for below message for medication, pharmacy states medication will be ready with in couples hours. T/C to pt. For inform above message from pharmacy, pt. Verbally agreed and understood. * Telephone Encounter - Washington Solorzano - 03/12/2023 4:50 PM EST Tc from pt requesting status on medication empagliflozin (Jardiance) 25 MG. Please contact pt at [phone]. * Telephone Encounter - Gabi Loja - 03/09/2023 11:53 AM EST Tc from pt requesting for empagliflozin (Jardiance) 25 MG to be sent to [id number]- [place], [place] - [address] [facility] [place]. Pt is out of medication. Pt states hecontact [facility] pharmacy and was advised it was transferred but pt called [facility] and was told they don't have a script. documented in this encounter Plan of Treatment Upcoming Encounters Date Type Department Care Team (Late st Contact Info) Description 12/30/2024 1:45 PM EST Office Visit [address] [address] Lois Gaming NP [address] [place] [address] 01/15/2025 9:00 AM EST Clinical Support [address] [address] Deborah Logan, BAM documented as of this encounter Visit Diagnoses Not on filedocumented in this encounter Additional Health Concerns Assessment Noted Time PHQ-9 Depression Total Score: 22 024 10:32 AM EST documented as of this encounter Care Teams Laser Print Operator Relationship Specialty Start Date End Date Kristi Bae FNP [address] [place] [address] PCP - General Family Medicine 10/16/22 10/04/23 Lois Gaming NP [address] [place] [address] PCP - General Family Medicine 10/05/23 Kuldeep Matthews, BAM [address] [place] [address] Registered Nurse Family Medicine 10/13/24 Deepika Pelletier 10/13/24 [facility] 11/11/23 documented as of this encounter
== END ==
LOC: HO.SL 13:22
PROVIDERS: PCP Internal Medicine Geriatric Medicine; Visit Provider Physician Assistant Medical
DX: G47.19 Other hypersomnia (principal); M25.641 Stiffness of right hand, not elsewhere classified; M25.642 Stiffness of left hand, not elsewhere classified
CPT/HCPCS: 95806

== ENCOUNTER → 2024-12-16 13:31 | Outpatient (BNV) | payer MEDICAID, SELFPAY | PROVIDERS: PCP Internal Medicine Geriatric Medicine; Visit Provider Psychiatry & Neurology Neurology | DX: G47.19 Other hypersomnia (principal) | CPT/HCPCS: 95806 ==

== ENCOUNTER 2024-12-25 08:50 | Outpatient (REF) | payer MEDICAID, SELFPAY ==
[2024-12-25 12:01] LABS: Microalbum/Creatinine Ratio Ur 17.8 ug/mg cr (<30)
== END 2024-12-25 08:51 | disposition home or self-care (01) ==
LOC: HO.HHCL 08:50
PROVIDERS: PCP Nurse Practitioner Family; Visit Provider Nurse Practitioner Family
DX: E11.3291 Type 2 diabetes mellitus with mild nonproliferative diabetic retinopathy without macular edema, right eye (principal)
CPT/HCPCS: 82043; 82570